=== PATIENT | male | born 1960 | race Caucasian/White ===

== ENCOUNTER 2018-01-16 21:14 | Inpatient (IN) | payer MEDICARE, BC ==
[2018-01-16] MEDS ORDERED: NITROGLYCERIN-D5W PMX 50 MG in DEXTROSE/WATER 1 250ML.BAG IV ONE (21:50)
[2018-01-16] MEDS ORDERED: NITROGLYCERIN SL TABS 0.4 MG TAB SUBLINGUAL STA (21:50)
--- NOTE | 2018-01-16 22:19 | XR ---
EXAMINATION TYPE: XR chest 1V portable DATE OF EXAM: 01/16/2018 COMPARISON: 09/10/2011 HISTORY: Hypertension and emphysema. Short of breath TECHNIQUE: Single frontal view of the chest is obtained. FINDINGS: There is pulmonary vascular congestion and pulmonary edema. There is slight blunting of co stophrenic angles. There are chest leads. IMPRESSION: Congestive heart failure with pleural effusions and pulmonary edema that is essentially new compared to old exam.
[2018-01-16 22:21] LABS: Basophils % (A) 0 %; Eosinophils # (A) 0.1 k/uL (0-0.7); Eosinophils % (A) 1 %; HCT 21.6 % (39.0-53.0); Lymphocytes # (A) 0.2 k/uL (1.0-4.8); Lymphocytes % (A) 2 %; MCH 30.5 pg (25.0-35.0); MCHC 31.8 g/dL (31.0-37.0); Mean Platelet Volume 6.7; Monocytes # (A) 0.1 k/uL (0-1.0); Monocytes % (A) 1 %; Neutrophils # (A) 8.9 k/uL (1.3-7.7); Neutrophils % (A) 95 %; Platelet Count 275 k/uL (150-450); RBC 2.25 m/uL (4.30-5.90); RDW 15.5 % (11.5-15.5); WBC 9.3 k/uL (3.8-10.6)
[2018-01-16 22:23] LABS: HGB 6.9 gm/dL (13.0-17.5)
[2018-01-16 22:28] LABS: Albumin 3.9 g/dL (3.5-5.0); Calcium 9.1 mg/dL (8.4-10.2); Total Protein 6.3 g/dL (6.3-8.2)
[2018-01-16 22:40] LABS: Poikilocytosis (M) Present
[2018-01-16 22:57] LABS: Creatine Kinase MB 2.5 ng/mL (0.0-2.4)
[2018-01-16 22:58] LABS: Troponin I 0.231 ng/mL (0.000-0.034)
--- NOTE | 2018-01-16 23:56 | ED ---
General Adult HPI - General Chief complaint: Shortness of Breath Stated complaint: JOHN PAUL Source: patient, EMS Mode of arrival: EMS Limitations: no limitations - History of Present Illness Initial comments: Dictation was produced using [employer] dictation software. please excuse any grammatical, word or spelling errors. Chief Complaint: 57-year-old male with past medical history of chronic kidney disease, hypertension and emphysema presents here EMS as transfer from [facility]. History of Present Illness: 57 year male with past medical history of chronic kidney disease presents via transfer from [facility] facility. Patient has a past medical history of chronic kidney disease. Patient states she's been short of breath for approximately one week. Patient has poor compliance and poor medical follow-up for his comorbidities. Patient states he has been significantly short of breath progressively patient seen and evaluated [facility] was found to have acute kidney injury and fluid overload. Patient states she still makes urine. Past Medical History: Hypertension, renal disease, emphysema Past Surgical History: Left upper extremity amputation Social History: [denies alcohol, tobacco or illicit drug use] Family History: reviewed and noncontributory The ROS documented in this emergency department record has been reviewed and confirmed by me. Those systems with pertinent positive or negative responses have been documented in the HPI. All other systems are other negative and/or noncontributory. - Related Data Home Medications Medication Instructions Recorded Confirmed Allopurinol [Zyloprim] 200 mg PO DAILY 01/16/18 01/16/18 Aspirin EC [Ecotrin Low Dose] 81 mg PO DAILY 01/16/18 01/16/18 Calcitriol 0.5 mcg PO DIRECTED 01/16/18 01/16/18 Carvedilol [Coreg] 25 mg PO AC-BID 01/16/18 01/16/18 Citalopram Hydrobromide [CeleXA] 20 mg PO DAILY 01/16/18 01/16/18 Ergocalciferol [Vitamin D2] 50,000 unit PO DIRECTED 01/16/18 01/16/18 Furosemide [Lasix] 40 mg PO DAILY 01/16/18 01/16/18 Levothyroxine Sodium [Synthroid] 75 mcg PO DAILY 01/16/18 01/16/18 Magnesium Oxide [Mag-Ox] 400 mg PO DAILY 01/16/18 01/16/18 Spironolactone [Aldactone] 25 mg PO BID 01/16/18 01/16/18 amLODIPine [Norvasc] 10 mg PO DAILY 01/16/18 01/16/18 hydrALAZINE HCL [Apresoline] 50 mg PO TID 01/16/18 01/16/18 Allergies Allergy/AdvReac Type Severity Reaction Status Date / Time Penicillins Allergy Unknown Verified 01/16/18 22:13 Review of Systems ROS Statement: Those systems with pertinent positive or pertinent negative responses have been documented in the HPI. ROS Other: All systems not noted in ROS Statement are negative. 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 Past Psychological History: No Psychological Hx Reported Smoking Status: Current every day smoker Past Alcohol Use History: None Reported Past Drug Use History: None Reported General Exam - General Exam Comments Initial Comments: Vitals: Vital signs upon arrival shows hypertension 161/79. Patient was transferred on BiPAP. He is currently manic percent on BiPAP. PHYSICAL EXAM: General Impression: Alert and oriented x3, acute distress secondary to dyspnea HEENT: Normocephalic atraumatic, extra-ocular movements intact, BiPAP mask in place Cardiovascular: Heart regular rate and rhythm, S1&S2 audible, no murmurs, rubs or gallops Chest: Bilateral lung crackles Abdomen: Bowel sounds present, abdomen soft, non-tender, non-distended, no organomegaly Musculoskeletal: Pulses present and equal in all extremities, no peripheral edema Motor: Power 5/5 bilaterally, no focal deficits noted Neurological: CN II-XII grossly intact, no focal motor or sensory deficits noted Skin: Intact with no visualized rashes Psych: Normal affect and mood Limitations: no limitations Course Vital Signs 01/16/18 01/16/18 01/16/18 21:17 22:33 22:39 Temperature 97.1 F L Pulse Rate 101 H 87 Pulse Rate [ Pulse Oximetery ] Respiratory 24 23 Rate Blood Pressure 173/84 161/79 170/73 Blood Pressure [Right Arm] O2 Sat by Pulse 88 L 99 Oximetry 01/16/18 01/16/18 01/16/18 22:46 23:04 23:53 Temperature Pulse Rate 80 Pulse Rate [ Pulse Oximetery ] Respiratory Rate Blood Pressure 166/73 154/70 159/75 Blood Pressure [Right Arm] O2 Sat by Pulse 100 100 Oximetry 01/17/18 01/17/18 01/17/18 02:00 03:05 03:22 Temperature 97.5 F L 98.4 F Pulse Rate 83 68 Pulse Rate [ 93 Pulse Oximetery ] Respiratory 22 24 24 Rate Blood Pressure 162/79 175/62 Blood Pressure 178/86 [Right Arm] O2 Sat by Pulse 100 98 100 Oximetry Medical Decision Making - Medical Decision Making ED course: Patient is a 57-year-old male presents via transfer from [facility] for dyspnea. Documentation was reviewed from [facility]. Discussed patient case with transferring physician. Patient was found have acute kidney injury. He was given breathing treatment and started on BiPAP there. They did find that he had a critical low hemoglobin. Patient was evaluated immediately as he arrived. Patient was trialed off BiPAP and he became hypoxic. BiPAP was replaced. Point of care ultrasound showed diffuse B lines represented pulmonary edema on bilateral lung wall. Patient mildly hypertensive on arrival. Laboratory evaluation obtained. Hemoglobin 6.9. Rest of CBC is unremarkable. Coag panel is negative. Comprehensive metabolic panel shows a creatinine of 7.8 with a P1 of 69. There is no Acidosis. Glucose is 157 secondary to stress. Troponin is 0.231 likely secondary to acute kidney injury. Brain natriuretic peptide is 49,000. Given degree of dyspnea and elevated blood pressure patient given sublingual nitroglycerin started on nitroglycerin drip. Patient is reevaluated after several hours on drip and BiPAP with improvement of symptoms. Patient be admitted to selective for continuation of BiPAP. Patient will need nephrology consultation for possible dialysis EKG Interpretation: A 12 lead EKG was obtained. It was interpreted by myself and attending physician. There is a P wave before every QRS complex. Rate is 92. Rhythm is, normal sinus, MO interval 184, QRS 142, QTc 516. - Lab Data Result diagrams: 01/21/18 09:00 01/19/18 07:56 Lab Results 01/16/18 01/16/18 01/16/18 Range/Units 22:00 22:00 22:00 WBC 9.3 (3.8-10.6) k/uL RBC 2.25 L (4.30-5.90) m/uL Hgb 6.9 L* (13.0-17.5) gm/dL Hct 21.6 L (39.0-53.0) % MCV 96.0 (80.0-100.0) fL MCH 30.5 (25.0-35.0) pg MCHC 31.8 (31.0-37.0) g/dL RDW 15.5 (11.5-15.5) % Plt Count 275 (150-450) k/uL Neutrophils % 95 % Lymphocytes % 2 % Monocytes % 1 % Eosinophils % 1 % Basophils % 0 % Neutrophils # 8.9 H (1.3-7.7) k/uL Lymphocytes # 0.2 L (1.0-4.8) k/uL Monocytes # 0.1 (0-1.0) k/uL Eosinophils # 0.1 (0-0.7) k/uL Basophils # 0.0 (0-0.2) k/uL Manual Slide Review Performed Poikilocytosis (manual Present PT (9.0-12.0) sec INR (<1.2) APTT (22.0-30.0) sec Sodium 135 L (137-145) mmol/L Potassium 5.0 (3.5-5.1) mmol/L Chloride 105 (98-107) mmol/L Carbon Dioxide 13 L (22-30) mmol/L Anion Gap 17 mmol/L BUN 69 H (9-20) mg/dL Creatinine 7.80 H* (0.66-1.25) mg/dL Est GFR (CKD-EPI)AfAm 8 (>60 ml/min/1.73 sqM) Est GFR (CKD-EPI)NonAf 7 (>60 ml/min/1.73 sqM) Glucose 157 H (74-99) mg/dL Calcium 9.1 (8.4-10.2) mg/dL Magnesium 2.0 (1.6-2.3) mg/dL Total Bilirubin 1.0 (0.2-1.3) mg/dL AST 12 L (17-59) U/L ALT 20 L (21-72) U/L Alkaline Phosphatase 67 (38-126) U/L Total Creatine Kinase 34 L (55-170) U/L CK-MB (CK-2) 2.5 H* (0.0-2.4) ng/mL CK-MB (CK-2) Rel Index 7.4 Troponin I 0.231 H* (0.000-0.034) ng/mL NT-Pro-B Natriuret Pep pg/mL Total Protein 6.3 (6.3-8.2) g/dL Albumin 3.9 (3.5-5.0) g/dL Blood Type Confirm 01/16/18 01/16/18 01/16/18 Range/Units 22:00 22:00 22:00 WBC (3.8-10.6) k/uL RBC (4.30-5.90) m/uL Hgb (13.0-17.5) gm/dL Hct (39.0-53.0) % MCV (80.0-100.0) fL MCH (25.0-35.0) pg MCHC (31.0-37.0) g/dL RDW (11.5-15.5) % Plt Count (150-450) k/uL Neutrophils % % Lymphocytes % % Monocytes % % Eosinophils % % Basophils % % Neutrophils # (1.3-7.7) k/uL Lymphocytes # (1.0-4.8) k/uL Monocytes # (0-1.0) k/uL Eosinophils # (0-0.7) k/uL Basophils # (0-0.2) k/uL Manual Slide Review Poikilocytosis (manual PT 10.0 (9.0-12.0) sec INR 1.0 (<1.2) APTT 22.0 (22.0-30.0) sec Sodium (137-145) mmol/L Potassium (3.5-5.1) mmol/L Chloride (98-107) mmol/L Carbon Dioxide (22-30) mmol/L Anion Gap mmol/L BUN (9-20) mg/dL Creatinine (0.66-1.25) mg/dL Est GFR (CKD-EPI)AfAm (>60 ml/min/1.73 sqM) Est GFR (CKD-EPI)NonAf (>60 ml/min/1.73 sqM) Glucose (74-99) mg/dL Calcium (8.4-10.2) mg/dL Magnesium (1.6-2.3) mg/dL Total Bilirubin (0.2-1.3) mg/dL AST (17-59) U/L ALT (21-72) U/L Alkaline Phosphatase (38-126) U/L Total Creatine Kinase (55-170) U/L CK-MB (CK-2) (0.0-2.4) ng/mL CK-MB (CK-2) Rel Index Troponin I (0.000-0.034) ng/mL NT-Pro-B Natriuret Pep 10296 pg/mL Total Protein (6.3-8.2) g/dL Albumin (3.5-5.0) g/dL Blood Type Confirm AB Positive Disposition Clinical Impression: Congestive heart failure Disposition: ADMITTED IP TO THIS HOSP
[2018-01-17 06:06] LABS: MCHC 30.6 g/dL (31.0-37.0); MCV 98.1 fL (80.0-100.0); Macrocytosis Slight; Mean Platelet Volume 6.6; Platelet Count 243 k/uL (150-450); RBC 1.99 m/uL (4.30-5.90); RDW 15.5 % (11.5-15.5); WBC 4.4 k/uL (3.8-10.6)
[2018-01-17 06:09] LABS: HCT 19.6 % (39.0-53.0)
[2018-01-17] MEDS ORDERED: FUROSEMIDE 10 MG/ML 10 ML VIAL IV STA (08:04)
[2018-01-17] MEDS ORDERED: DESMOPRESSIN ACETATE 4 MCG/ML VIAL (MDV) IV ONE (08:15)
--- NOTE | 2018-01-17 08:16 | P.NPCON ---
History of Present Illness - Reason for Consult acute renal failure, chronic renal failure - History of Present Illness Reason for consultation: Acute kidney injury on chronic kidney disease History of present illness: Patient is a 57-year-old male seen in renal consultation for acute kidney injury on chronic kidney disease. Patient has chronic kidney disease stage V with creatinine in the range of 3.5-4.5 since 2015. Patient was last seen in the office in November 2016 and subsequently missed several appointments. Patient now presents to the hospital with dyspnea which has been going on for the last 2 weeks. Chest x-ray was adjusted of pleural effusions and pulmonary edema. His creatinine is elevated at 7.8. Hemoglobin was 6.9 on admission and is 6.0 this morning. Patient denies any melena or hematochezia. He denies any hematemesis. Vision states his appetite has been quite poor the last few days. States he does make some urine. Denies vomiting or diarrhea. He is noted to be acidotic with a bicarbonate level of 13. He is currently resting in bed on a BiPAP. Blood pressures have been on the higher side. Denies regular use of NSAIDs. Vital signs are stable. General: The patient appeared well nourished and normally developed. HEENT: Head exam is unremarkable. Neck is without jugular venous distension. LUNGS: Breath sounds decreased. HEART: Rate and Rhythm are regular. First and second heart sounds normal. No murmurs, rubs or gallops. ABDOMEN: Abdominal exam reveals normal bowel sounds. Non-tender and non- distended. No evidence of peritonitis. EXTREMITITES: No clubbing, cyanosis, or edema. Left arm amputation noted. 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 Past Anesthesia/Blood Transfusion Reactions: No Reported Reaction Past Psychological History: No Psychological Hx Reported Smoking Status: Current every day smoker Past Alcohol Use History: None Reported Past Drug Use History: None Reported Medications and Allergies Home Medications Medication Instructions Recorded Confirmed Type Allopurinol [Zyloprim] 200 mg PO DAILY 01/16/18 01/16/18 History Aspirin EC [Ecotrin Low Dose] 81 mg PO DAILY 01/16/18 01/16/18 History Calcitriol 0.5 mcg PO DIRECTED 01/16/18 01/16/18 History Carvedilol [Coreg] 25 mg PO AC-BID 01/16/18 01/16/18 History Citalopram Hydrobromide [CeleXA] 20 mg PO DAILY 01/16/18 01/16/18 History Ergocalciferol [Vitamin D2] 50,000 unit PO DIRECTED 01/16/18 01/16/18 History Furosemide [Lasix] 40 mg PO DAILY 01/16/18 01/16/18 History Levothyroxine Sodium [Synthroid] 75 mcg PO DAILY 01/16/18 01/16/18 History Magnesium Oxide [Mag-Ox] 400 mg PO DAILY 01/16/18 01/16/18 History Spironolactone [Aldactone] 25 mg PO BID 01/16/18 01/16/18 History amLODIPine [Norvasc] 10 mg PO DAILY 01/16/18 01/16/18 History hydrALAZINE HCL [Apresoline] 50 mg PO TID 01/16/18 01/16/18 History Allergies Allergy/AdvReac Type Severity Reaction Status Date / Time Penicillins Allergy Unknown Verified 01/16/18 22:13 Physical Exam Vitals: Vital Signs Temp Pulse Pulse Resp BP BP Pulse Ox 01/17/18 06:36 83 20 156/84 99 01/17/18 04:00 93 24 01/17/18 03:22 98.4 F 68 24 175/62 100 01/17/18 03:05 97.5 F L 93 24 178/86 98 01/17/18 02:00 83 22 162/79 100 01/16/18 23:53 80 159/75 100 01/16/18 23:04 154/70 01/16/18 22:46 166/73 100 01/16/18 22:39 170/73 01/16/18 22:33 87 23 161/79 99 01/16/18 21:17 97.1 F L 101 H 24 173/84 88 L Intake and Output 01/16/18 01/17/18 01/17/18 22:59 06:59 14:59 Intake Total 0 Balance 0 Intake: Oral 0 Other: Voiding Method Urinal # Voids 0 Weight 86.183 kg 79.4 kg Results - Lab Results Most recent lab results Calcium 9.1 mg/dL (8.4-10.2) 01/16/18 22:00 Magnesium 2.0 mg/dL (1.6-2.3) 01/16/18 22:00 01/17/18 05:25 01/16/18 22:00 Assessment and Plan Plan: Assessment: 1. Acute kidney injury secondary to ATN secondary to acute anemia. Also very likely that his underlying CKD progressed further. Creatinine 7.8 on admission. 2. Chronic kidney disease stage V secondary to nephrosclerosis. Creatinine in the range of 3.5-4.5 since June 2016. He was advised to get AV fistula created in his right arm but patient did not follow-up. Patient not comfortable with PD due to left arm amputation. 3. Acute anemia with hemoglobin of 6. Scheduled to receive blood transfusion today. No active bleeding noted. Component of chronic kidney disease present. 4. Dyspnea secondary to volume overload and anemia. 5. Hypertension with chronic kidney disease. Plan: Lasix 80 mg IV once now. Start Lasix drip at 10 mL an hour. Add oral sodium bicarbonate 1300 mg twice daily. Blood transfusion today. Add Aranesp. I will give him a dose of IV DDAVP as well. Check phosphorus level. Resume amlodipine. I discussed with the patient the need to start renal replacement therapy due to severely impaired renal function along with electrolyte imbalance and fluid overload as well. Patient is agreeable to start. Consult vascular surgery for permacath placement today. First treatment of hemodialysis today and second treatment tomorrow. global commodity manager to help set up outpatient dialysis at [facility]. Thank you for the consultation. I will continue to follow patient with you during his hospital stay.
[2018-01-17] MEDS ORDERED: DESMOPRESSIN INJ 24 MCG in SODIUM CHLORIDE 0.9% 50 ML IVPB ONE (09:00)
[2018-01-17] MEDS: FUROSEMIDE 250 MG in SODIUM CHLORIDE 0.9% 225 ML IVP SCH (10:24)
[2018-01-17] MEDS: DARBEPOETIN ALFA 40 MCG/0.4 ML SYRINGE SQ SCH (10:59)
[2018-01-17] MEDS: SODIUM BICARBONATE TAB 650 MG TAB PO SCH ×2 (11:20→21:42)
[2018-01-17] MEDS: amLODIPine 10 MG TAB PO SCH (11:20)
[2018-01-17] MEDS: IPRATROPIUM-ALBUTEROL 3 ML NEB INHALATION PRN (11:56)
[2018-01-17] MEDS: ALPRAZolam 0.25 MG TAB PO PRN ×2 (12:29→21:42)
--- NOTE | 2018-01-17 12:29 | P.CNPUL ---
History of Present Illness Consult date: 01/17/18 Requesting physician: Srini Hoang Reason for consult: dyspnea Chief complaint: Shortness of breath History of present illness: This a very pleasant 57-year-old gentleman who follows with Dr. Hastings as his primary care physician. He apparently hasn't seen him in over 2 years. 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 He has a 40 year pack per day smoking history. He presented to the emergency room yesterday at [facility] with complaints of increasing shortness of breath, cough and congestion. He was placed on BiPAP and subsequently transferred here for further treatment. Chest x-ray revealed evidence of fluid volume overload and pulmonary edema. Initial labs revealed a hemoglobin of 6.9, creatinine 7.80, bicarbonate 13, troponin 0.231, proBNP 49, 400. He was admitted to the selective care unit. He is seen there today in consultation. Currently on BiPAP 06/19 at 45% FiO2. He is awake and alert in mild respiratory distress. Labs today revealed RBC 4.4, hemoglobin 6.0. He is receiving his first unit of packed red blood cells. He is currently on a Lasix drip at 10 mg per hour. Nitroglycerin drip at 5 mcg/m. He is receiving sodium bicarb orally. He's been initiated on bronchodilators as needed. Nephrology is on the case. Review of Systems Constitutional: Reports malaise, Reports weakness Eyes: denies blurred vision, denies decreased vision Ears: deny: decreased hearing Ears, nose, mouth and throat: Denies headache, Denies sore throat Cardiovascular: Reports decreased exercise tolerance, Reports dyspnea on exertion, Reports edema, Reports shortness of breath Respiratory: Reports dyspnea, Reports wheezing Gastrointestinal: Denies abdominal pain, Denies diarrhea, Denies nausea, Denies vomiting Genitourinary: Reports as per HPI Musculoskeletal: Denies myalgias Integumentary: Denies pruritus, Denies rash Neurological: Denies numbness, Denies weakness Psychiatric: Denies anxiety, Denies depression Endocrine: Denies fatigue, Denies weight change Hematologic/Lymphatic: Reports as per HPI Allergic/Immunologic: Reports as per HPI Past Medical History Past Medical History: Hypertension, Renal Disease Additional Past Medical History / Comment(s): emphysema, "blood clot in heart" History of Any Multi-Drug Resistant Organisms: None Reported Additional Past Surgical History / Comment(s): 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 Past Anesthesia/Blood Transfusion Reactions: No Reported Reaction Past Psychological History: No Psychological Hx Reported Smoking Status: Current every day smoker Past Alcohol Use History: None Reported Past Drug Use History: None Reported Medications and Allergies Home Medications Medication Instructions Recorded Confirmed Type Allopurinol [Zyloprim] 200 mg PO DAILY 01/16/18 01/16/18 History Aspirin EC [Ecotrin Low Dose] 81 mg PO DAILY 01/16/18 01/16/18 History Calcitriol 0.5 mcg PO DIRECTED 01/16/18 01/16/18 History Carvedilol [Coreg] 25 mg PO AC-BID 01/16/18 01/16/18 History Citalopram Hydrobromide [CeleXA] 20 mg PO DAILY 01/16/18 01/16/18 History Ergocalciferol [Vitamin D2] 50,000 unit PO DIRECTED 01/16/18 01/16/18 History Furosemide [Lasix] 40 mg PO DAILY 01/16/18 01/16/18 History Levothyroxine Sodium [Synthroid] 75 mcg PO DAILY 01/16/18 01/16/18 History Magnesium Oxide [Mag-Ox] 400 mg PO DAILY 01/16/18 01/16/18 History Spironolactone [Aldactone] 25 mg PO BID 01/16/18 01/16/18 History amLODIPine [Norvasc] 10 mg PO DAILY 01/16/18 01/16/18 History hydrALAZINE HCL [Apresoline] 50 mg PO TID 01/16/18 01/16/18 History Allergies Allergy/AdvReac Type Severity Reaction Status Date / Time Penicillins Allergy Unknown Verified 01/16/18 22:13 Physical Exam Vitals: Vital Signs Temp Pulse Pulse Resp BP BP Pulse Ox 01/17/18 11:56 87 24 01/17/18 11:37 97.7 F 89 20 156/83 99 01/17/18 11:35 97.7 F 89 20 156/83 99 01/17/18 11:07 97.5 F L 88 23 164/81 99 01/17/18 10:57 98.0 F 87 22 135/80 01/17/18 08:00 97.1 F L 89 23 168/79 97 01/17/18 06:36 83 20 156/84 99 01/17/18 04:00 93 24 01/17/18 03:22 98.4 F 68 24 175/62 100 01/17/18 03:05 97.5 F L 93 24 178/86 98 01/17/18 02:00 83 22 162/79 100 01/16/18 23:53 80 159/75 100 01/16/18 23:04 154/70 01/16/18 22:46 166/73 100 01/16/18 22:39 170/73 01/16/18 22:33 87 23 161/79 99 01/16/18 21:17 97.1 F L 101 H 24 173/84 88 L Intake and Output 01/16/18 01/17/18 01/17/18 22:59 06:59 14:59 Intake Total 0 0 Balance 0 0 Intake: Oral 0 Blood Product 0 Rc As-1 Unit 0 [id number] Other: Voiding Method Urinal # Voids 0 2 Weight 86.183 kg 79.4 kg GENERAL EXAM: Alert, fairly comfortable in mild respiratory distress. HEAD: Normocephalic. EYES: Normal reaction of pupils, equal size. NOSE: Clear with pink turbinates. THROAT: No erythema or exudates. NECK: No masses, no JVD. CHEST: No chest wall deformity. LUNGS: Equal air entry with crackles in the bilateral posterior bases. Faint end expiratory wheeze. Diminished. CVS: S1 and S2 normal with no audible murmur, regular rhythm. ABDOMEN: No hepatosplenomegaly, normal bowel sounds, no guarding or rigidity. SPINE: No scoliosis or deformity SKIN: No rashes CENTRAL NERVOUS SYSTEM: No focal deficits, tone is normal in all 4 extremities. EXTREMITIES: Left upper extremity amputation. There is no peripheral edema. No clubbing, no cyanosis. Peripheral pulses are intact. Results - Laboratory Findings CBC and BMP: 01/17/18 05:25 01/16/18 22:00 PT/INR, D-dimer PT 10.0 sec (9.0-12.0) 01/16/18 22:00 INR 1.0 (<1.2) 01/16/18 22:00 Abnormal lab findings: Abnormal Labs 01/16/18 01/16/18 01/16/18 22:00 22:00 22:00 RBC 2.25 L Hgb 6.9 L* Hct 21.6 L MCHC Neutrophils # 8.9 H Lymphocytes # 0.2 L Sodium 135 L Carbon Dioxide 13 L BUN 69 H Creatinine 7.80 H* Glucose 157 H AST 12 L ALT 20 L Total Creatine Kinase 34 L CK-MB (CK-2) 2.5 H* Troponin I 0.231 H* Crossmatch 01/17/18 01/17/18 05:25 05:48 RBC 1.99 L Hgb 6.0 L* Hct 19.6 L* MCHC 30.6 L Neutrophils # Lymphocytes # Sodium Carbon Dioxide BUN Creatinine Glucose AST ALT Total Creatine Kinase CK-MB (CK-2) Troponin I Crossmatch See Detail - Diagnostic Findings Chest x-ray: image reviewed Assessment and Plan Assessment: Impression: #1 Acute hypoxic respiratory failure secondary to fluid volume overload/ pulmonary edema secondary to acute renal failure, anemia, suspected chronic obstructive pulmonary disease exacerbation. #2 Acute kidney injury in a patient with a known history of chronic kidney disease. #3 Acute anemia suspect secondary to chronic kidney disease. No evidence of active bleeding. #4 Hypertension, currently uncontrolled. #5 Chronic and ongoing tobacco dependence. #6 Hypothyroidism. #7 History of left upper extremity amputation. #8 History of cardiac emboli. Plan: The patient was seen and evaluated by Dr. Hoang. We will go ahead and treat him for suspected COPD exacerbation. Initiate bronchodilators 4 times a day and when necessary, Pulmicort and Perforomist inhalations twice a day. He is educated regarding the importance of complete smoking cessation. NicoDerm patch will be applied. He has been seen and evaluated by nephrology. The patient is agreeable to renal replacement therapy. Vascular services were consulted for vascular access. In the interim we'll continue with Lasix drip, nitroglycerin drip, oral bicarb, Aranesp. Complete blood transfusions. Follow- up hemoglobins. Repeat a chest x-ray in the a.m. Lies BiPAP intermittently as needed alternating with nasal cannula. We will continue to follow and make further recommendations based on his clinical status. I, the cosigning physician, performed a history & physical examination of the patient. Lungs sounds with crackles in the bilateral posterior bases. Diminished.. Maintaining good O2 saturations in the 90s on 45% FiO2 per BiPAP. I discussed the assessment and plan of care with my nurse practitioner, Elizabeth Nevarez. I attest to the above consultation as dictated by her.
[2018-01-17] MEDS ORDERED: NICOTINE 14MG/24HR PATCH TRANSDERM SCH (12:45)
[2018-01-17] MEDS ORDERED: LIDOCAINE 1% (PF) 10MG/ML VIAL SQ ONE (13:00)
[2018-01-17] MEDS ORDERED: fentaNYL (PF) 50 MCG/ML 2 ML AMP IVP ONE (13:05)
--- NOTE | 2018-01-17 13:49 | IR ---
EXAMINATION TYPE: IR cvc insert central tunneled DATE OF EXAM: 01/17/2018 COMPARISON: NONE HISTORY: Peripheral vascular occlusive disease. 0.6 minutes of Fluoroscopy was provided to the referring clinician. See dictated report from vascula r surgery.
--- NOTE | 2018-01-17 14:19 | XR ---
EXAMINATION TYPE: XR chest 1V portable DATE OF EXAM: 01/17/2018 COMPARISON: 01/16/2018 HISTORY: Catheter placement TECHNIQUE: Single frontal view of the chest is obtained. FINDINGS: Dialysis catheter seen with the tip overlying the SVC and no sizable pneumothorax. Atherosclerotic change aorta, cardiomegaly, bilateral pleural effusion, bilateral lower lobe consolid ation and perihilar interstitial changes are noted. IMPRESSION: 1. Central line dialysis catheter appears in good position with no sizable pneumothorax 2. Correlate for CHF. Underlying pneumonia not excluded
--- NOTE | 2018-01-17 15:18 | CONS ---
CONSULTATION This is a 57-year-old gentleman who is known to me from the past. He came with acute kidney injury on chronic kidney disease. Patient has history of chronic kidney disease stage V with creatinine in the range of 3.5 to 4.5. Patient has a chest x-ray with some pleural effusion and pulmonary edema. His creatinine is elevated now today to 7.8, hemoglobin is 6.9. He denies any lower GI bleed. MEDICAL HISTORY: Hypertension and renal disease. PHYSICAL EXAMINATION: Neck is supple. No bruit appreciated. Chest has few crackles at the lung bases. Abdomen is soft, nontender. Femoral pulses are present. PLAN: Placement of the dialysis catheter, risks and complications discussed. MMODL / IJN: [id number] /
--- NOTE | 2018-01-17 15:24 | PCN ---
PROCEDURE NOTE PREOPERATIVE DIAGNOSIS: Acute renal failure with chronic anemia. PROCEDURE: 1. Ultrasound-guided 23 cm dialysis catheter placed. 2. Sedation time is 23 minutes. PROCEDURE: Patient is brought to the cardiac catheterization technologist. Right chest and neck was prepped and draped in a sterile manner with 1% lidocaine for the neck area. Ultrasound-guided micropuncture into the right jugular vein. Micropuncture guidewire was passed and then tunnel created. Through the tunnel we brought 28 cm dialysis catheter and a regular guide was passed which was parked in the inferior vena cava under fluoroscopy control. Dilator sheath was advanced over the guidewire through the sheath. We introduced the dialysis catheter. Tip of the catheter in superior vena cava and atrium, flushed with heparin saline and hep-locked and incision were closed with Vicryl and nylon. Dressing applied. Patient tolerated the procedure well. DENNIS / SRINIVASN: [id number] /
[2018-01-17] MEDS: methylPREDNISolone SOD SUCCI 40 MG/ML 1 ML VIAL IV SCH ×2 (15:53→23:50)
[2018-01-17 16:24] LABS: Hepatitis A Antibody IgM Non-Reactive (Non-Reactive); Hepatitis B Core IgM Non-Reactive (Non-Reactive)
[2018-01-17] MEDS: IPRATROPIUM-ALBUTEROL 3 ML NEB INHALATION SCH ×2 (16:25→20:27)
[2018-01-17] MEDS ORDERED: NICOTINE POLACRILEX 2 MG GUM BUCCAL PRN (16:53)
[2018-01-17] MEDS: NICOTINE 21MG/24HR PATCH TRANSDERM SCH (17:02)
[2018-01-17] MEDS: ENOXAPARIN 40 MG/0.4 ML SYRINGE SQ SCH (17:26)
--- NOTE | 2018-01-17 17:29 | HP ---
HISTORY AND PHYSICAL DATE OF ADMISSION: 01/16/2018 DATE OF SERVICE: 01/17/2018. PRESENTING COMPLAINT: Short of breath. HISTORY OF PRESENTING COMPLAINT: This is a pleasant 57-year-old patient of Dr. Srini Hastings whose chronic stable medical conditions include hypertension, chronic kidney disease, emphysema. The patient is a smoker. The patient presented with progressively getting short of breath, some orthopnea, minimal edema. Patient also was found to have a hemoglobin down to 6.9; repeat was 6. I ordered a unit of blood. Patient's creatinine that normally runs around 4 was found in the ER to be 7.8. Earlier Dr. Javi Bautista from [facility] put in a dialysis catheter in the right chest wall and the patient underwent his first hemodialysis. Patient has continued to smoke; also has been having wheezing. No fever or chills. Has been tired and rundown. REVIEW OF SYSTEMS: CONSTITUTIONAL: Tired. HEENT: None. RESPIRATORY: As above. CARDIOVASCULAR: As above. GASTROINTESTINAL: None. GENITOURINARY: None. MUSCULOSKELETAL: None. DERMATOLOGICAL: None. HEMATOLOGICAL: None. LYMPHATICS: None. PSYCHIATRY: None. NEUROLOGICAL: None. PAST MEDICAL HISTORY: 1. Essential hypertension. 2. Chronic kidney disease. 3. Emphysema. PAST SURGICAL HISTORY: Below-elbow amputation of the left arm. SOCIAL HISTORY: Smokes a pack and a half a day. Lives with his brother. No alcohol. FAMILY HISTORY: Reviewed; non-contributory to presentation. HOME MEDICATIONS: 1. Hydralazine 50 mg p.o. t.i.d. 2. Norvasc 10 mg a day. 3. Aldactone 25 mg b.i.d. 4. Magnesium oxide 400 mg a day. 5. Synthroid 75 mcg a day. 6. Lasix 40 mg a day. 7. Vitamin D2 50,000 units as directed. 8. Celexa 20 mg a day. 9. Coreg 25 p.o. b.i.d. 10.Calcitriol 0.5 mcg p.o. as directed. 11.Aspirin 81 mg p.o. daily. 12.Allopurinol 200 mg p.o. daily. ALLERGIES: PENICILLIN. PHYSICAL EXAMINATION: VITAL SIGNS ON PRESENTATION: Temperature 97.1, pulse 101, respiration 24, blood pressure 173/84, pulse ox 88% on BiPAP. GENERAL APPEARANCE: Average build. Lying in bed, tired-appearing. EYES: Pupils equal. Conjunctivae normal. HEENT: External appearance of nose and ears normal. Oral cavity normal. NECK: JVD not raised. Mass not palpable. RESPIRATORY: Effort increased. LUNGS: Diminished breath sounds. Prolonged expiration and wheezing. CARDIOVASCULAR: First and second sounds normal. No edema. ABDOMEN: Soft, nontender. Liver and spleen not palpable. LYMPHATIC: No lymph node palpable in neck or axillae. PSYCHIATRY: Alert and oriented x3. Mood and affect normal. CHEST WALL: Dialysis catheter in the right chest wall. INVESTIGATIONS: Chest x-ray shows pulmonary edema. White count 9.3, hemoglobin 6.9, repeat 6. Platelets 275. Potassium 5.0, BUN 69, creatinine 7.8. Troponin I 0.231. ProBNP 49,400. ASSESSMENT: 1. Acute renal failure; could be acute tubular necrosis. 2. Chronic kidney disease. Patient's creatinine at baseline was around 3 to 4. 3. Troponin leak; not acute coronary syndrome. This is a setting of renal failure. 4. Severe metabolic acidosis from renal failure. 5. Normocytic anemia, likely from chronic kidney disease. 6. Acute pulmonary edema, likely from fluid retention from renal failure. Need to rule out congestive heart failure. 7. Acute chronic obstructive pulmonary disease exacerbation in a current smoker. 8. Chronic nicotine dependence. Patient is a cigarette smoker. PLAN: The patient did get an IV access and did get dialyzed today. He is on IV Solu-Medrol and nebulized bronchodilators. Patient was started on a nicotine patch. Will get a 2- D echocardiogram. Other home medications to continue. Consultations made to Nephrology and Pulmonary. Patient was also put on bicarbonate tablets. MMODL / IJN: [id number] /
[2018-01-17] MEDS: MAGNESIUM OXIDE 400 MG TAB PO SCH (17:55)
[2018-01-17] MEDS: CARVEDILOL 12.5 MG TAB PO SCH (17:55)
[2018-01-17] MEDS: LEVOTHYROXINE 75 MCG TAB PO SCH (17:55)
[2018-01-17] MEDS: CITALOPRAM HYDROBROMIDE 20 MG TAB PO SCH (17:55)
[2018-01-17] MEDS: ALLOPURINOL 100 MG TAB PO SCH (17:55)
[2018-01-17] MEDS: ASPIRIN 81 MG PO SCH (17:55)
[2018-01-17] MEDS: BUDESONIDE 1 MG/2 ML NEBU INHALATION SCH (20:27)
[2018-01-17] MEDS: FORMOTEROL FUMARATE 20 MCG/2 ML NEBU INHALATION SCH (20:27)
[2018-01-18 05:52] LABS: Anisocytosis Slight; Basophils % (A) 0 %; Eosinophils % (A) 1 %; HCT 24.9 % (39.0-53.0); Lymphocytes # (A) 0.2 k/uL (1.0-4.8); Lymphocytes % (A) 5 %; MCH 29.4 pg (25.0-35.0); MCV 91.7 fL (80.0-100.0); Mean Platelet Volume 7.9; Monocytes # (A) 0.1 k/uL (0-1.0); Monocytes % (A) 3 %; Neutrophils # (A) 3.5 k/uL (1.3-7.7); Neutrophils % (A) 91 %; Platelet Count 227 k/uL (150-450); RBC 2.72 m/uL (4.30-5.90); RDW 16.9 % (11.5-15.5); WBC 3.8 k/uL (3.8-10.6)
[2018-01-18 06:06] LABS: Albumin 3.7 g/dL (3.5-5.0); Calcium 9.6 mg/dL (8.4-10.2); Potassium 4.6 mmol/L (3.5-5.1); Total Bilirubin 1.4 mg/dL (0.2-1.3)
[2018-01-18 06:26] LABS: Phosphorus 8.3 mg/dL (2.5-4.5)
[2018-01-18] MEDS: FORMOTEROL FUMARATE 20 MCG/2 ML NEBU INHALATION SCH ×2 (08:24→19:15)
[2018-01-18] MEDS: IPRATROPIUM-ALBUTEROL 3 ML NEB INHALATION SCH ×4 (08:24→19:15)
[2018-01-18] MEDS: BUDESONIDE 1 MG/2 ML NEBU INHALATION SCH ×2 (08:25→19:15)
[2018-01-18] MEDS: ENOXAPARIN 40 MG/0.4 ML SYRINGE SQ SCH (08:31)
[2018-01-18] MEDS: NICOTINE 21MG/24HR PATCH TRANSDERM SCH (08:32)
[2018-01-18] MEDS: SODIUM BICARBONATE TAB 650 MG TAB PO SCH ×2 (08:32→23:45)
[2018-01-18] MEDS: LEVOTHYROXINE 75 MCG TAB PO SCH (08:33)
[2018-01-18] MEDS: methylPREDNISolone SOD SUCCI 40 MG/ML 1 ML VIAL IV SCH ×3 (08:33→23:45)
[2018-01-18] MEDS: CARVEDILOL 12.5 MG TAB PO SCH ×2 (08:33→17:25)
[2018-01-18] MEDS: MAGNESIUM OXIDE 400 MG TAB PO SCH (08:34)
[2018-01-18] MEDS: CITALOPRAM HYDROBROMIDE 20 MG TAB PO SCH (08:34)
[2018-01-18] MEDS: ALLOPURINOL 100 MG TAB PO SCH (08:34)
[2018-01-18] MEDS: amLODIPine 10 MG TAB PO SCH (08:34)
[2018-01-18] MEDS: ASPIRIN 81 MG PO SCH (08:34)
--- NOTE | 2018-01-18 10:21 | P.PN ---
Subjective Progress Note Date: 01/18/18 Principal diagnosis: This is a 57-year-old male with chronic kidney disease stage V came in because of shortness of breath and has ESRD now. He has been trying to avoid dialysis for some time in the past. Currently he is on dialysis as his dialysis #2 today. He has a permacath on the right side. He is feeling much better appetite is back he denies any shortness of breath dizziness cramps. He has had accidental trauma to his left arm and has a stump there from previous amputation. Therefore he has no access possibilities in that arm leaving him with only 1 on on the right side. I have recommended strongly that he consider peritoneal Lamisil which he was somewhat resistant to. He is willing to listen and get educated about it before making any final decisions. Objective - Vital Signs Vital signs: Vital Signs Temp 97.1 F L 01/18/18 08:00 Pulse 89 01/18/18 08:47 Resp 20 01/18/18 08:00 BP 153/91 01/18/18 08:00 Pulse Ox 91 L 01/18/18 08:00 Intake & Output 01/17/18 01/18/18 01/18/18 18:59 06:59 18:59 Intake Total 860 240 Output Total 1200 Balance 860 -1200 240 Weight 79.4 kg 81 kg Intake: Oral 240 240 Blood Product 620 As-1 Unit 310 [id number] As-1 Unit 310 [id number] Output: Urine 1200 Other: Voiding Method Urinal Urinal # Voids 0 0 On examination awake alert oriented comfortable HEENT exam no JVP neck is supple no facial asymmetry Lungs clear to auscultation good air entry bilaterally Heart sounds are unremarkable for any murmur rub gallop. Abdomen soft nontender no organomegaly ascites masses Extremity exam was no edema. As mentioned about he has a small stump on his left arm from a previous accidental amputation as a child. Neurologically awake alert oriented., No asterixis. - Labs CBC & Chem 7: 01/18/18 05:39 01/18/18 05:39 Labs: Abnormal Lab Results - Last 24 Hours (Table) 01/17/18 01/18/18 01/18/18 Range/Units 05:48 05:39 05:39 RBC 2.72 L (4.30-5.90) m/uL Hgb 8.0 L D (13.0-17.5) gm/dL Hct 24.9 L (39.0-53.0) % RDW 16.9 H (11.5-15.5) % Lymphocytes # 0.2 L (1.0-4.8) k/uL BUN 58 H (9-20) mg/dL Creatinine 5.97 H* (0.66-1.25) mg/dL Glucose 141 H (74-99) mg/dL Phosphorus 8.3 H* (2.5-4.5) mg/dL Total Bilirubin 1.4 H (0.2-1.3) mg/dL Total Protein 6.0 L (6.3-8.2) g/dL Crossmatch See Detail Assessment and Plan Assessment: Impression 1. ESRD on dialysis now starting yesterday and on dialysis today second time with a permacath in the right side. Etiology is is likely nephrosclerosis. 2. Volume overloaded resolved with one dialysis dialysis. 3. Anemia of chronic disease, ESRD hemoglobin is 8 from 6 yesterday. 4. Mild degree of gap acidosis with a gap of 17 bicarb is 25, this is a result of correction of acidosis with dialysis yesterday and bicarb improved from 13- 25. 5. Hypertension slightly about target. Recommendation. 1. Consider peritoneal dialysis as an alternative. 2. Proceed with planning for access surgery by Dr. Bautista
--- NOTE | 2018-01-18 10:22 | P.PN ---
Subjective Progress Note Date: 01/18/18 Principal diagnosis: Acute hypoxic respiratory failure secondary to acute fluid volume overload secondary to acute renal failure. This a very pleasant 57-year-old gentleman who follows with Dr. Hastings as his primary care physician. He apparently hasn't seen him in over 2 years. 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 He has a 40 year pack per day smoking history. He presented to the emergency room yesterday at [facility] with complaints of increasing shortness of breath, cough and congestion. He was placed on BiPAP and subsequently transferred here for further treatment. Chest x-ray revealed evidence of fluid volume overload and pulmonary edema. Initial labs revealed a hemoglobin of 6.9, creatinine 7.80, bicarbonate 13, troponin 0.231, proBNP 49, 400. He was admitted to the selective care unit. He is seen there today in consultation. Currently on BiPAP 06/19 at 45% FiO2. He is awake and alert in mild respiratory distress. Labs today revealed RBC 4.4, hemoglobin 6.0. He is receiving his first unit of packed red blood cells. He is currently on a Lasix drip at 10 mg per hour. Nitroglycerin drip at 5 mcg/m. He is receiving sodium bicarb orally. He's been initiated on bronchodilators as needed. Nephrology is on the case. Patient is seen today 01/18/2018 in follow-up on the selective care unit. He is awake and alert in no acute distress. He is breathing quite a bit easier today as compared to yesterday. He did utilize the BiPAP throughout the evening and is currently on 4 L/m per nasal cannula to maintain O2 saturations in the 90s. He did undergo vascular access catheter and is currently receiving hemodialysis. He remains on the Lasix drip at 10 mg per hour. He is continued on his COPD exacerbation medications as well. Objective - Vital Signs Vital signs: Vital Signs Temp 97.1 F L 01/18/18 08:00 Pulse 89 01/18/18 08:47 Resp 20 01/18/18 08:00 BP 153/91 01/18/18 08:00 Pulse Ox 91 L 01/18/18 08:00 Intake & Output 01/17/18 01/18/18 01/18/18 18:59 06:59 18:59 Intake Total 860 240 Output Total 1200 Balance 860 -1200 240 Weight 79.4 kg 81 kg Intake: Oral 240 240 Blood Product 620 Rc As-1 Unit 310 [id number] Rc As-1 Unit 310 [id number] Output: Urine 1200 Other: Voiding Method Urinal Urinal # Voids 0 0 - Exam GENERAL EXAM: Alert, fairly comfortable in mild respiratory distress. HEAD: Normocephalic. EYES: Normal reaction of pupils, equal size. NOSE: Clear with pink turbinates. THROAT: No erythema or exudates. NECK: No masses, no JVD. CHEST: No chest wall deformity. LUNGS: Equal air entry with crackles in the bilateral posterior bases. Faint end expiratory wheeze. Diminished. CVS: S1 and S2 normal with no audible murmur, regular rhythm. ABDOMEN: No hepatosplenomegaly, normal bowel sounds, no guarding or rigidity. SPINE: No scoliosis or deformity SKIN: No rashes CENTRAL NERVOUS SYSTEM: No focal deficits, tone is normal in all 4 extremities. EXTREMITIES: Left upper extremity amputation. There is no peripheral edema. No clubbing, no cyanosis. Peripheral pulses are intact. - Labs CBC & Chem 7: 01/18/18 05:39 01/18/18 05:39 Labs: Abnormal Lab Results - Last 24 Hours (Table) 01/17/18 01/18/18 01/18/18 Range/Units 05:48 05:39 05:39 RBC 2.72 L (4.30-5.90) m/uL Hgb 8.0 L D (13.0-17.5) gm/dL Hct 24.9 L (39.0-53.0) % RDW 16.9 H (11.5-15.5) % Lymphocytes # 0.2 L (1.0-4.8) k/uL BUN 58 H (9-20) mg/dL Creatinine 5.97 H* (0.66-1.25) mg/dL Glucose 141 H (74-99) mg/dL Phosphorus 8.3 H* (2.5-4.5) mg/dL Total Bilirubin 1.4 H (0.2-1.3) mg/dL Total Protein 6.0 L (6.3-8.2) g/dL Crossmatch See Detail Assessment and Plan Assessment: Impression: #1 Acute hypoxic respiratory failure secondary to fluid volume overload/ pulmonary edema secondary to acute renal failure, anemia, suspected chronic obstructive pulmonary disease exacerbation. #2 Acute kidney injury in a patient with a known history of chronic kidney disease. #3 Acute anemia suspect secondary to chronic kidney disease. No evidence of active bleeding. #4 Hypertension, better controlled. #5 Chronic and ongoing tobacco dependence. #6 Hypothyroidism. #7 History of left upper extremity amputation. #8 History of cardiac emboli. Plan: The patient was seen and evaluated by Dr. Hoang. We will continue to treat him for suspected COPD exacerbation. Continue bronchodilators 4 times a day and when necessary, Pulmicort and Perforomist inhalations twice a day. He is educated regarding the importance of complete smoking cessation. NicoDerm patch will be applied. He has been seen and evaluated by nephrology. Hemodialysis has been started today. Continue with Lasix drip. Repeat a chest x -ray in the a.m. continue BiPAP intermittently as needed alternating with nasal cannula. We will continue to follow and make further recommendations based on his clinical status. I, the cosigning physician, performed a history & physical examination of the patient. Lungs sounds with crackles in the bilateral posterior bases. Diminished.. Maintaining good O2 saturations in the 90s on 4 L/m per nasal cannula.. I discussed the assessment and plan of care with my nurse practitioner, Elizabeth Nevarez. I attest to the above consultation as dictated by her.
--- NOTE | 2018-01-18 14:10 | ECHOF ---
Referral Reason:assess l v fn MEASUREMENTS -------- HEIGHT: 180.3 cm WEIGHT: 79.4 kg BP: 163/87 RVIDd: 3.4 cm (< 3.3) IVSd: 1.2 cm (0.6 - 1.1) LVIDd: 6.1 cm (3.9 - 5.3) LVPWd: 1.2 cm (0.6 - 1.1) IVSs: 1.4 cm LVIDs: 4.8 cm LVPWs: 1.6 cm LAESV Index (A-L): 47.69 ml/m Ao Diam: 3.6 cm (2.0 - 3.7) AV Cusp: 2.1 cm (1.5 - 2.6) LA Diam: 3.4 cm (2.7 - 3.8) MV E Manny: 1.33 m/s MV DecT: 149 ms MV A Manny: 0.96 m/s MV E/A Ratio: 1.38 RAP: 15.00 mmHg RVSP: 22.98 mmHg MV EF SLOPE: 80.48 mm/s (70 - 150) MV EXCURSION: 1.59 cm (> 18.000) FINDINGS -------- Sinus rhythm. This was a technically adequate study. The left ventricle is mildly dilated. There is mild concentric left ventricular hypertrophy. Ther e is severe global hypokinesis of LV . Overall left ventricular systolic function is moderate-sever quinten impaired with, an EF between 30 - 35 %. The right ventricle is mildly enlarged. LA is severely dilated >40 ml/m2 RA appears enlarged. There is mild aortic valve sclerosis. There is no evidence of aortic regurgitation. There is no e vidence of aortic stenosis. The mitral valve leaflets are mildly thickened. Mild mitral annular calcification present. Mild m itral regurgitation is present. Trace tricuspid regurgitation present. Right ventricular systolic pressure is normal at < 35 mmHg. There is no evidence of pulmonary hypertension. The pulmonic valve was not well visualized. The aortic root size is normal. The inferior vena cava is dilated with no significant inspiratory collapse which is consistent estima sophia right atrial pressure of >20 mmHg. There is no pericardial effusion. CONCLUSIONS -------- 1. Sinus rhythm. 2. This was a technically adequate study. 3. The left ventricle is mildly dilated. 4. There is mild concentric left ventricular hypertrophy. 5. There is severe global hypokinesis of LV . 6. Overall left ventricular systolic function is moderate-severely impaired with, an EF between 30 - 35 %. 7. The right ventricle is mildly enlarged. 8. LA is severely dilated >40 ml/m2 9. RA appears enlarged. 10. There is mild aortic valve sclerosis. 11. The mitral valve leaflets are mildly thickened. 12. Mild mitral annular calcification present. 13. Mild mitral regurgitation is present. 14. Trace tricuspid regurgitation present. 15. Right ventricular systolic pressure is normal at < 35 mmHg. 16. There is no evidence of pulmonary hypertension. 17. The pulmonic valve was not well visualized. 18. The aortic root size is normal. 19. The inferior vena cava is dilated with no significant inspiratory collapse which is consistent es timated right atrial pressure of >20 mmHg. 20. There is no pericardial effusion. CHEMICAL LAB TECHNICIAN: Elijah Whittington RDCS
[2018-01-18 16:53] LABS: Iron Saturation 11.36 (15.00-50.00)
[2018-01-18] MEDS: FUROSEMIDE 250 MG in SODIUM CHLORIDE 0.9% 225 ML IVP SCH (16:59)
[2018-01-18] MEDS: diphenhydrAMINE 25 MG CAP PO PRN (21:55)
--- NOTE | 2018-01-18 23:25 | PN ---
PROGRESS NOTE DATE OF SERVICE: 01/18/2018 PRESENT COMPLAINT: Short of breath. INTERVAL HISTORY: Patient presented with acute pulmonary edema from worsening renal failure and COPD exacerbation. The patient was dialyzed again today; feeling better, did tolerate some diet. Lying in bed. REVIEW OF SYSTEMS: Done for constitutional, cardiovascular, GI, pulmonary. relevant findings as above. CURRENT MEDICATIONS: Include: 1. DuoNeb. 2. IV Solu-Medrol. 3. Lasix drip. EXAMINATION: Temperature 97, pulse 78, respirations 16, blood pressure 135/62, pulse 93% on 4L. GENERAL APPEARANCE: Lying in bed, awake. EYES: Pupils equal. Conjunctivae normal. HEENT: External nose and ears normal. Oral cavity normal. NECK: JVD unable to assess. Mass not palpable. RESPIRATORY: Effort increased. LUNGS: Decreased breath sounds. Prolonged expiration and wheezing. CARDIOVASCULAR: First and second sounds normal. No edema. ABDOMEN: Soft, nontender. Liver and spleen not palpable. PSYCHIATRY: Alert and oriented x3. Mood and affect were normal. INVESTIGATIONS: Hemoglobin 8. Potassium 4.6, BUN 58, creatinine 5.97. Phosphorus 8.3. ASSESSMENT: 1. Acute renal failure could be acute tubular necrosis. 2. Chronic kidney disease. Patient's creatinine at baseline was 3-4. 3. Troponin leak, doubt acute coronary syndrome. This in the setting of renal failure. 4. Severe metabolic acidosis from renal failure. 5. Normocytic anemia likely from chronic kidney disease. 6. Acute pulmonary edema, likely from renal failure. 7. Acute chronic obstructive pulmonary disease exacerbation in a current smoker. 8. Chronic nicotine dependence. Patient is a cigarette smoker. 9. End-stage kidney disease on hemodialysis now. 10.Secondary hyperparathyroidism/possibly mineral bone disease of chronic kidney disease. 11.Dilated cardiomyopathy, ejection fraction 30%-35% with acute exacerbation. May need to rule out underlying coronary artery disease. PLAN: Continue current medication and treatment plan, including dialysis. Continue with nebulized bronchodilators, steroids. The patient's EF has come back to be 30%-35%. Will get a cardiology opinion for the same. MMODL / IJN: [id number] /
[2018-01-18] MEDS: ALPRAZolam 0.25 MG TAB PO PRN (23:45)
[2018-01-19] MEDS: LEVOTHYROXINE 75 MCG TAB PO SCH (06:46)
[2018-01-19] MEDS: diphenhydrAMINE 25 MG CAP PO PRN ×2 (06:46→22:41)
[2018-01-19] MEDS: CARVEDILOL 12.5 MG TAB PO SCH ×2 (06:46→18:53)
[2018-01-19] MEDS: IPRATROPIUM-ALBUTEROL 3 ML NEB INHALATION SCH ×4 (07:34→19:31)
[2018-01-19] MEDS: BUDESONIDE 1 MG/2 ML NEBU INHALATION SCH ×2 (07:34→19:30)
[2018-01-19] MEDS: FORMOTEROL FUMARATE 20 MCG/2 ML NEBU INHALATION SCH ×2 (07:34→19:30)
[2018-01-19 08:21] LABS: Anisocytosis Slight; HCT 23.7 % (39.0-53.0); HGB 7.8 gm/dL (13.0-17.5); MCH 30.2 pg (25.0-35.0); MCHC 32.8 g/dL (31.0-37.0); MCV 92.2 fL (80.0-100.0); Mean Platelet Volume 7.5; Platelet Count 248 k/uL (150-450); RBC 2.57 m/uL (4.30-5.90); RDW 16.3 % (11.5-15.5); WBC 4.1 k/uL (3.8-10.6)
[2018-01-19 08:26] LABS: INR 1.1 (<1.2)
[2018-01-19 08:34] LABS: Potassium 4.1 mmol/L (3.5-5.1)
--- NOTE | 2018-01-19 08:35 | XR ---
EXAMINATION TYPE: XR chest 1V portable DATE OF EXAM: 01/19/2018 HISTORY: CHF. REFERENCE: Previous study dated 01/17/2018. FINDINGS: There is a large-bore, double-lumen catheter in place via a right internal jugular approach . Its tip is at the cavoatrial junction. The lungs are overinflated. The heart is enlarged. There is mild vascular congestion without judith ed jorge. There is minimal blunting of the CP angles. I could not exclude small effusions. IMPRESSION: 1. COPD. 2. CARDIOMEGALY. 3. MILD VASCULAR CONGESTION. 4. I COULD NOT EXCLUDE SMALL, BILATERAL EFFUSIONS.
[2018-01-19] MEDS: ENOXAPARIN 40 MG/0.4 ML SYRINGE SQ SCH (09:43)
[2018-01-19] MEDS: ALLOPURINOL 100 MG TAB PO SCH (09:44)
[2018-01-19] MEDS: ASPIRIN 81 MG PO SCH (09:44)
[2018-01-19] MEDS: SODIUM BICARBONATE TAB 650 MG TAB PO SCH ×2 (09:44→20:01)
[2018-01-19] MEDS: CITALOPRAM HYDROBROMIDE 20 MG TAB PO SCH (09:45)
[2018-01-19] MEDS: methylPREDNISolone SOD SUCCI 40 MG/ML 1 ML VIAL IV SCH ×2 (09:45→15:39)
[2018-01-19] MEDS: MAGNESIUM OXIDE 400 MG TAB PO SCH (09:45)
[2018-01-19] MEDS: amLODIPine 10 MG TAB PO SCH (09:45)
[2018-01-19] MEDS: FUROSEMIDE 250 MG in SODIUM CHLORIDE 0.9% 225 ML IVP SCH (09:46)
--- NOTE | 2018-01-19 10:00 | P.CRDCN ---
History of Present Illness Consult date: 01/19/18 Chief complaint: severe cardiomyopathy History of present illness: This is a pleasant 57-year-old gentleman with a past medical history significant for hypertension, stage IV chronic kidney disease, as well as significant history of smoking, presented to the emergency room complaining of progressive dyspnea. The patient was in his usual state of health but about 3-4 days before he presented to the hospital when he started experiencing progressive exertional dyspnea associated with orthopnea and also PND. He did not report any chest pain or chest discomfort, dizziness or lightheadedness, or syncope. When the patient presented to the ER he was found to be in volume overload. He also was found to be severely anemic with a hemoglobin around 6 and receives blood. Also the creatinine was around 5 and he was in acute on chronic renal failure. The patient underwent a dialysis catheter and he underwent dialysis twice. Apparently he is known to have stage IV chronic kidney disease but he was noncompliant with his appointments. An echocardiogram was performed and revealed severe cardiomyopathy with an EF around 35%. The patient is not aware of any prior cardiac history and never seen a toe former stitchdowns in the past. The EKG showed sinus rhythm with diffuse nonspecific ST and T wave abnormalities quite concerning for ischemia. The chest x-ray showed findings consistent with CHF. The first set of troponin came in to be slightly abnormal and we don't have any more sets of troponin and the patient at this point. After the patient underwent dialysis he felt better in term of shortness of breath. He also was started on Lasix drip and he is making urine. 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 Past Anesthesia/Blood Transfusion Reactions: No Reported Reaction Past Psychological History: No Psychological Hx Reported Smoking Status: Current every day smoker Past Alcohol Use History: None Reported Past Drug Use History: None Reported Medications and Allergies Home Medications Medication Instructions Recorded Confirmed Type Allopurinol [Zyloprim] 200 mg PO DAILY 01/16/18 01/16/18 History Aspirin EC [Ecotrin Low Dose] 81 mg PO DAILY 01/16/18 01/16/18 History Calcitriol 0.5 mcg PO DIRECTED 01/16/18 01/16/18 History Carvedilol [Coreg] 25 mg PO AC-BID 01/16/18 01/16/18 History Citalopram Hydrobromide [CeleXA] 20 mg PO DAILY 01/16/18 01/16/18 History Ergocalciferol [Vitamin D2] 50,000 unit PO DIRECTED 01/16/18 01/16/18 History Furosemide [Lasix] 40 mg PO DAILY 01/16/18 01/16/18 History Levothyroxine Sodium [Synthroid] 75 mcg PO DAILY 01/16/18 01/16/18 History Magnesium Oxide [Mag-Ox] 400 mg PO DAILY 01/16/18 01/16/18 History Spironolactone [Aldactone] 25 mg PO BID 01/16/18 01/16/18 History amLODIPine [Norvasc] 10 mg PO DAILY 01/16/18 01/16/18 History hydrALAZINE HCL [Apresoline] 50 mg PO TID 01/16/18 01/16/18 History Allergies Allergy/AdvReac Type Severity Reaction Status Date / Time Penicillins Allergy Unknown Verified 01/16/18 22:13 Physical Exam Vitals: Vital Signs Temp Pulse Pulse Resp BP Pulse Ox 01/19/18 07:55 80 01/19/18 07:46 76 01/19/18 07:45 76 01/19/18 07:36 76 92 L 01/19/18 04:00 96.3 F L 77 18 172/84 92 L 01/19/18 00:00 97.0 F L 77 18 165/79 93 L 01/18/18 20:00 98.3 F 82 18 172/83 91 L 01/18/18 19:37 84 01/18/18 19:26 80 01/18/18 19:23 78 01/18/18 19:16 77 01/18/18 15:51 87 01/18/18 15:41 86 01/18/18 15:40 97.0 F L 78 16 135/62 93 L 01/18/18 12:00 80 16 140/70 91 L 01/18/18 11:11 92 01/18/18 11:01 90 Intake and Output 01/18/18 01/19/18 01/19/18 22:59 06:59 14:59 Intake Total 240 Output Total 275 1075 Balance -35 -1075 Intake: Oral 240 Output: Urine 275 1075 Other: Voiding Method Urinal Urinal # Voids 0 Weight 81.5 kg - Constitutional General appearance: no acute distress - Respiratory Respiratory: bilateral: CTA - Cardiovascular Rhythm: regular Heart sounds: normal: S1, S2 Results 01/19/18 07:56 01/19/18 07:56 Coagulation 01/19/18 Range/Units 08:07 PT 11.0 (9.0-12.0) sec CBC 01/19/18 Range/Units 07:56 WBC 4.1 (3.8-10.6) k/uL RBC 2.57 L (4.30-5.90) m/uL Hgb 7.8 L (13.0-17.5) gm/dL Hct 23.7 L (39.0-53.0) % Plt Count 248 (150-450) k/uL Comprehensive Metabolic Panel 01/19/18 Range/Units 07:56 Sodium 137 (137-145) mmol/L Potassium 4.1 (3.5-5.1) mmol/L Chloride 94 L (98-107) mmol/L Carbon Dioxide 28 (22-30) mmol/L BUN 55 H (9-20) mg/dL Creatinine 4.66 H (0.66-1.25) mg/dL Glucose 135 H (74-99) mg/dL Calcium 9.0 (8.4-10.2) mg/dL Current Medications Generic Name Dose Route Start Last Admin Trade Name Freq PRN Reason Stop Dose Admin Albuterol/Ipratropium 3 ml 01/17/18 04:40 01/17/18 11:56 Duoneb 0.5 Mg-3 Mg/3 Ml Soln INHALATION 3 ml RT-QID PRN Administration Shortness Of Breath Or Wheezing Albuterol/Ipratropium 3 ml 01/17/18 16:00 01/19/18 07:34 Duoneb 0.5 Mg-3 Mg/3 Ml Soln INHALATION 3 ml RT-QID AILYN Administration Allopurinol 200 mg 01/17/18 17:15 01/19/18 09:44 Zyloprim PO 200 mg DAILY AILYN Administration Alprazolam 0.25 mg 01/17/18 11:49 01/18/18 23:45 Xanax PO 0.25 mg TID PRN Administration Anxiety Aspirin 81 mg 01/17/18 17:15 01/19/18 09:44 Aspirin PO 81 mg DAILY AILYN Administration Budesonide 1 mg 01/17/18 20:00 01/19/18 07:34 Pulmicort INHALATION 1 mg RT-BID AILYN Administration Carvedilol 25 mg 01/17/18 17:30 01/19/18 06:46 Coreg PO 25 mg AC-BID [facility] Administration Citalopram Hydrobromide 20 mg 01/17/18 17:15 01/19/18 09:45 Celexa PO 20 mg DAILY [facility] Administration Darbepoetin Han 40 mcg 01/17/18 09:00 01/17/18 10:59 Aranesp SQ 40 mcg Q7D [facility] Administration Diphenhydramine HCl 25 mg 01/18/18 18:39 01/19/18 06:46 Benadryl PO 25 mg Q6H PRN Administration Itching Enoxaparin Sodium 40 mg 01/17/18 17:00 01/19/18 09:43 Lovenox SQ 40 mg DAILY [facility] Administration Formoterol Fumarate 20 mcg 01/17/18 20:00 01/19/18 07:34 Perforomist INHALATION 20 mcg RT-BID [facility] Administration Furosemide 250 mg/ Sodium 250 mls @ 10 mls/hr 01/17/18 08:15 01/19/18 09:46 Chloride IVP 10 mg/hr .Q24H AILYN 10 mls/hr Administration 10 MG/HR Levothyroxine Sodium 75 mcg 01/17/18 17:15 01/19/18 06:46 Synthroid PO 75 mcg DAILY@0630 [facility] Administration Lisinopril 10 mg 01/20/18 09:00 Zestril PO DAILY [facility] Magnesium Oxide 400 mg 01/17/18 17:15 01/19/18 09:45 Mag-Ox PO 400 mg DAILY [facility] Administration Methylprednisolone Sodium Succinate 40 mg 01/17/18 16:00 01/19/18 09:45 Solu-Medrol IV 40 mg Q8HR [facility] Administration Nicotine 1 patch 01/17/18 17:00 01/18/18 08:32 Habitrol 21mg/24hr Patch TRANSDERM 1 patch DAILY [facility] Administration Nicotine Polacrilex 2 mg 01/17/18 16:53 Nicorette Gum BUCCAL Q4HR PRN Nicotine Cravings Sodium Bicarbonate 1,300 mg 01/17/18 09:00 01/19/18 09:44 Sodium Bicarbonate Tab PO 1,300 mg BID AILYN Administration Spironolactone 25 mg 01/20/18 09:00 Aldactone PO DAILY AILYN Intake and Output 01/18/18 01/19/18 01/19/18 22:59 06:59 14:59 Intake Total 240 Output Total 275 1075 Balance -35 -1075 Intake: Oral 240 Output: Urine 275 1075 Other: Voiding Method Urinal Urinal # Voids 0 Weight 81.5 kg 01/19/18 07:56 01/19/18 07:56 Assessment and Plan Assessment: Assessment #1 congestive heart failure exacerbation secondary to systolic dysfunction Acute on chronic #2 severe cardiomyopathy and known if it's due to ischemic or nonischemic at this point #3 chronic kidney disease on dialysis now #4 hypertension #5 significant history of smoking Plan #1 continue the Lasix drip. #2 maximize medical treatment for cardiomyopathy. I am going to continue the Coreg, add lisinopril, and add Aldactone. Continue aspirin. #3 I am concerned about severe underlying coronary artery disease for the cardiomyopathy giving his risk factors including hypertension and smoking #4 the patient does need to have a heart catheterization once he is euvolemic and that can be done as an inpatient or outpatient #5 obtain 2 more sets of serial cardiac enzymes #6 follow-up with the patient. Thank you for allowing us participate in his care and we will continue following up with the patient
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
[2018-01-19] MEDS: NICOTINE 21MG/24HR PATCH TRANSDERM SCH (11:30)
[2018-01-19] MEDS: ACETAMINOPHEN TAB 325 MG TAB PO PRN (13:17)
[2018-01-19] MEDS: FAMOTIDINE 20 MG TAB PO SCH (15:39)
[2018-01-19] MEDS ORDERED: DESMOPRESSIN INJ 20 MCG in SODIUM CHLORIDE 0.9% 50 ML IVPB ONE (19:00)
[2018-01-19] MEDS: LISINOPRIL-HCTZ 20-12.5 MG 1 EACH TAB PO SCH (20:01)
--- NOTE | 2018-01-19 20:06 | PN ---
PROGRESS NOTE DATE OF SERVICE: 01/19/18. PRESENTING COMPLAINT: Short of breath. INTERVAL HISTORY: This patient presented with acute pulmonary edema from worsening renal failure and chronic obstructive pulmonary disease exacerbation. Patient was started on dialysis. Blood pressure is running a bit on the higher side. Breathing is getting better. Brother is present today. REVIEW OF SYSTEMS: Done for constitutional, cardiovascular, GI, pulmonary; relevant findings as above. CURRENT MEDICATIONS: Reviewed that include DuoNeb, aspirin, Coreg, IV Lasix drip, Synthroid, IV Solu-Medrol, sodium bicarb, Aldactone. EXAMINATION: On examination; Temp afebrile, pulse 76, respirations 16, blood pressure 169/82, pulse ox 98% on 2 L. GENERAL APPEARANCE: Lying in bed, more comfortable. EYES: Pupils equal. Conjunctivae normal. HEENT: External appearance of nose and ears normal. Oral cavity normal. NECK: JVD not raised. Mass not palpable. RESPIRATORY: Effort increased. Lungs, decreased breath sounds, decreased wheezing. CARDIOVASCULAR: First and second sounds, no edema. ABDOMEN: Soft, nontender. Liver and spleen not palpable. PSYCHIATRY: Alert and oriented x3. Mood and affect normal. Right chest wall has got a hemodialysis catheter in place. INVESTIGATIONS: White count 4.1, hemoglobin 7.8, potassium 4.1, BUN 55, creatinine 4.66, bicarb 28. ASSESSMENT: 1. Acute renal failure could be ATN on chronic kidney, probably end-stage kidney disease, now started on hemodialysis. 2. Severe metabolic acidosis renal failure now improved. 3. Normocytic anemia likely from chronic kidney disease. 4. Acute pulmonary edema, likely from renal failure, now improved. 5. Acute chronic obstructive pulmonary disease exacerbation in a current smoker. 6. Chronic nicotine dependence patient is a cigarette smoker. 7. End-stage kidney disease on hemodialysis. 8. Secondary hyperparathyroidism/possibly mineral bone disease of chronic kidney disease. 9. Acute congestive heart failure exacerbation from systolic dysfunction, EF 30 to 35%. 10.Rule out underlying coronary artery disease. PLAN: We will stop patient's IV Lasix drip. The patient is already on hemodialysis. The patient's dose of sodium bicarb also has been cut back. The patient's blood pressure is rather still uncontrolled. We will increase the lisinopril to 20/12.5 hydrochlorothiazide twice a day. I spoke to the patient and brother. Encouraged to be out of bed and ambulate. Also spoke to Dr. Santos. The patient will need a cardiac catheterization. High risk for underlying coronary artery disease, especially in the setting of cardiomyopathy. MMROXIEL / IJN: [id number] /
[2018-01-19] MEDS: ALPRAZolam 0.25 MG TAB PO PRN (22:41)
[2018-01-20] MEDS: LEVOTHYROXINE 75 MCG TAB PO SCH (05:50)
[2018-01-20] MEDS: CARVEDILOL 12.5 MG TAB PO SCH ×2 (05:50→17:00)
[2018-01-20] MEDS: NICOTINE 21MG/24HR PATCH TRANSDERM SCH (08:06)
[2018-01-20] MEDS: SODIUM BICARBONATE TAB 650 MG TAB PO SCH ×2 (08:06→21:27)
[2018-01-20] MEDS: predniSONE 20 MG TAB PO SCH (08:06)
[2018-01-20] MEDS: FAMOTIDINE 20 MG TAB PO SCH (08:06)
[2018-01-20] MEDS: IPRATROPIUM-ALBUTEROL 3 ML NEB INHALATION SCH ×4 (08:06→19:42)
[2018-01-20] MEDS: FORMOTEROL FUMARATE 20 MCG/2 ML NEBU INHALATION SCH ×2 (08:06→19:42)
[2018-01-20] MEDS: BUDESONIDE 1 MG/2 ML NEBU INHALATION SCH ×2 (08:06→19:42)
[2018-01-20] MEDS ORDERED: LISINOPRIL 10 MG TAB PO SCH (09:00)
--- NOTE | 2018-01-20 09:27 | P.PN ---
Subjective Progress Note Date: 01/20/18 Principal diagnosis: Severe cardiomyopathy unknown if is ischemic or nonischemic This is a pleasant 57-year-old gentleman with a past medical history significant for hypertension, stage IV chronic kidney disease, as well as significant history of smoking, presented to the emergency room complaining of progressive dyspnea. The patient was in his usual state of health but about 3-4 days before he presented to the hospital when he started experiencing progressive exertional dyspnea associated with orthopnea and also PND. He did not report any chest pain or chest discomfort, dizziness or lightheadedness, or syncope. When the patient presented to the ER he was found to be in volume overload. He also was found to be severely anemic with a hemoglobin around 6 and receives blood. Also the creatinine was around 5 and he was in acute on chronic renal failure. The patient underwent a dialysis catheter and he underwent dialysis twice. Apparently he is known to have stage IV chronic kidney disease but he was noncompliant with his appointments. An echocardiogram was performed and revealed severe cardiomyopathy with an EF around 35%. The patient is not aware of any prior cardiac history and never seen a teacher's aide in the past. The EKG showed sinus rhythm with diffuse nonspecific ST and T wave abnormalities quite concerning for ischemia. The chest x-ray showed findings consistent with CHF. The first set of troponin came in to be mildly elevated but the second set of troponin came in to be around 5. On follow-up with the patient today, he is feeling better indeterminable shortness of breath. No chest pain or chest discomfort. I did add lisinopril as well as Aldactone to the current medical regimen with chordee and aspirin. Currently he is on maximize medical treatment. He seems to be euvolemic. Objective - Vital Signs Vital signs: Vital Signs Temp 97 F L 01/20/18 08:00 Pulse 76 01/20/18 08:30 Resp 17 01/20/18 08:00 BP 134/67 01/20/18 08:00 Pulse Ox 93 L 01/20/18 08:00 Intake & Output 01/19/18 01/20/18 01/20/18 18:59 06:59 18:59 Intake Total 410 245 240 Output Total 900 550 Balance -490 -305 240 Weight 80.6 kg Intake: Intake, IV Titration 45 Amount Desmopressin Inj 20 mcg 25 In Sodium Chloride 0.9% 50 ml @ 13.75 mls/hr IV[facility] Rx#:[id number] Furosemide 250 mg In 20 Sodium Chloride 0.9% 225 ml @ 10 MG/HR 10 mls/hr IVP .Q24H [facility] Rx#: [id number] Oral 410 200 240 Output: Urine 900 550 Other: Voiding Method Urinal Urinal - Constitutional General appearance: Present: no acute distress - Respiratory Respiratory: bilateral: CTA - Cardiovascular Rhythm: regular Heart sounds: normal: S1, S2 - Labs CBC & Chem 7: 01/19/18 07:56 01/19/18 07:56 Labs: Abnormal Lab Results - Last 24 Hours (Table) 01/18/18 01/19/18 Range/Units 11:46 07:56 Iron 30 L (65-175) ug/dL Iron Saturation 11.36 L (15.00-50.00) Troponin I 5.780 H* (0.000-0.034) ng/mL Assessment and Plan Assessment: Assessment #1 congestive heart failure exacerbation secondary to systolic dysfunction Acute on chronic #2 severe cardiomyopathy and known if it's due to ischemic or nonischemic at this point #3 acute non-ST deviation myocardial infarction #4 hypertension #5 significant history of smoking Plan #1 continue the current medical treatment which is maximized which include aspirin, Coreg, lisinopril, and Aldactone #2 I am going to add Plavix to the current medical regimen in view of the acute non-ST deviation myocardial infarction #3 I am concerned about severe underlying coronary artery disease for the cardiomyopathy giving his risk factors including hypertension and smoking #4 the patient does need to have a heart catheterization once he is euvolemic and that can be done as an inpatient or outpatient #5 follow-up with the patient. Thank you for allowing us participate in his care and we will continue following up with the patient
[2018-01-20] MEDS: LISINOPRIL-HCTZ 20-12.5 MG 1 EACH TAB PO SCH ×2 (11:34→21:27)
[2018-01-20] MEDS: ALLOPURINOL 100 MG TAB PO SCH (11:34)
[2018-01-20] MEDS: MAGNESIUM OXIDE 400 MG TAB PO SCH (11:35)
[2018-01-20] MEDS: ASPIRIN 81 MG PO SCH (11:35)
[2018-01-20] MEDS: SPIRONOLACTONE 25 MG TAB PO SCH (11:35)
[2018-01-20] MEDS: CITALOPRAM HYDROBROMIDE 20 MG TAB PO SCH (11:35)
[2018-01-20] MEDS: ENOXAPARIN 30 MG/0.3 ML SYRINGE SQ SCH (11:36)
[2018-01-20] MEDS ORDERED: SODIUM CHLORIDE 0.9% 1,000 ML in EMPTY BAG 1 BAG IV ONE (12:39)
[2018-01-20] MEDS ORDERED: ASPIRIN 325 MG TAB PO STA (12:39)
[2018-01-20] MEDS ORDERED: NITROGLYCERIN SL TABS 0.4 MG TAB SUBLINGUAL PRN (12:39)
[2018-01-20] MEDS ORDERED: ATORVASTATIN 80 MG TAB PO STA (12:39)
--- NOTE | 2018-01-20 13:23 | P.PN ---
Subjective Progress Note Date: 01/20/18 Principal diagnosis: Acute hypoxemic restaurant failure, fluid overload secondary to acute kidney injury, chronic anemia, and COPD exacerbation. Progress note dated 01/19/2018 This is a 57-year-old white male who presented with acute hypoxemic respiratory failure secondary to fluid overload/pulmonary edema from acute renal fire, anemia, and COPD exacerbation. The patient's chest x-ray slightly improved. Volume status is improved. He didn't get dialysis yesterday. Overall he is feeling better. 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 Yesterday we spent a great deal of time counseling him about the importance of smoking cessation. We did this in front of his daughter. The patient denies any cough or phlegm production. No fever chills. No chest pain or chest discomfort. No nausea vomiting or diarrhea. Labs today show a white count of 4.1 hemoglobin 7.8 hematocrit 23.7 and a platelet count that is normal. Sodium potassium normal chloride 94 CO2 28 BUN and creatinine were 55 and 4.66, compared to 69 and 7.80 on admission. N-terminal pro BNP was 49,400 on the fifth. Chest x-ray shows some mild fluid overload and small pleural effusions. On 01/20/2018 patient seen in follow-up on selective care unit. He is having his third hemodialysis treatment today, his breathing is easier, lung sounds are positive for mild bibasilar crackles, no rhonchi or wheezes noted. Some prolongation of expiratory phase. Overall no acute distress. He is resting comfortably in bed. He states that she is still smoking up to 2 packs a day, and most likely will be smoking again after discharge. Room air pulse ox is 94% , she is afebrile, vital signs are stable, denies any chest pain, he is alert, awake, oriented 3. No new labs were chest x-rays today, other than troponin which is trending down and is down to 3.370. Latest chest x-ray from [address] Chinchilla and showed COPD, cardiomegaly, mild vascular congestion, and small bilateral effusions. No acute events overnight, patient was advised to get up and sit up in the chair and ambulate with assistance after the hemodialysis. Objective - Vital Signs Vital signs: Vital Signs Temp 97 F L 01/20/18 08:00 Pulse 76 01/20/18 11:52 Resp 18 01/20/18 11:43 BP 163/79 01/20/18 11:43 Pulse Ox 94 L 01/20/18 11:43 Intake & Output 01/19/18 01/20/18 01/20/18 18:59 06:59 18:59 Intake Total 410 245 480 Output Total 900 550 Balance -490 -305 480 Weight 80.6 kg Intake: Intake, IV Titration 45 Amount Desmopressin Inj 20 mcg 25 In Sodium Chloride 0.9% 50 ml @ 13.75 mls/hr IVPB ONCE ONE Rx#:[id number] Furosemide 250 mg In 20 Sodium Chloride 0.9% 225 ml @ 10 MG/HR 10 mls/hr IVP .Q24H AILYN Rx#: [id number] Oral 410 200 480 Output: Urine 900 550 Other: Voiding Method Urinal Urinal # Voids 0 - Exam No acute distress, oriented 3. Nasal O2 in place. HEENT examination is grossly unremarkable. Mucous membranes are moist. No oral lesions. Neck supple. Full range of motion. No adenopathy thyromegaly or neck vein distention. Cardiovascular examination reveals regular rhythm rate. S1-S2 normal. No S3 or S4. No discernible murmur noted. Lungs reveal mild bibasilar crackles. A few scattered rhonchi are noted. No wheezes. Breath sounds are diminished throughout but equal bilaterally. There is prolongation on forced maneuver. Abdomen soft bowel sounds are heard. No masses or tenderness. Extremities are intact. Left upper extremity amputation. No cyanosis clubbing or significant edema.. Skin is without rash or lesion. Neurologic examination is brief but nonfocal. - Labs CBC & Chem 7: 01/19/18 07:56 01/19/18 07:56 Labs: Abnormal Lab Results - Last 24 Hours (Table) 01/18/18 01/20/18 Range/Units 11:46 09:40 Iron 30 L (65-175) ug/dL Iron Saturation 11.36 L (15.00-50.00) Troponin I 3.370 H* (0.000-0.034) ng/mL Assessment and Plan Plan: Assessment: Acute hypoxemic respiratory failure, multifactorial, in part related to underlying fluid overload from his renal failure, chronic anemia, and COPD exacerbation, improved Acute on chronic kidney injury requiring hemodialysis Anemia of chronic disease Hypertension by history Chronic and ongoing tobacco dependence with likely underlying COPD History of hypothyroidism History of remote left upper extremity amputation Plan: Continue nebulized bronchodilators, continue Pulmicort and Perforomist, continue prednisone, increase activity as tolerated once the hemodialysis treatment is complete. No worsening dyspnea, no chest pain. On room air. Smoking cessation was strongly encouraged. Continue to follow I performed a history & physical examination of the patient and discussed their management with my nurse practitioner, Simin Easton. I reviewed the nurse practitioner's note and agree with the documented findings and plan of care. Lung sounds are positive for a few scattered rhonchi and rales. The findings and the impression was discussed with the patient. I attest to the documentation by the nurse practitioner. Time with Patient: Less than 30
[2018-01-20] MEDS: IPRATROPIUM-ALBUTEROL 3 ML NEB INHALATION PRN (15:43)
--- NOTE | 2018-01-20 20:00 | PN ---
PROGRESS NOTE Patient is seen for followup for end-stage renal disease, is currently seen on dialysis. The patient is tolerating his treatment well. He did rule in for an acute myocardial infarction and I did discuss with Dr. Santos. The patient will likely need cardiac catheterization and it is okay to proceed with cardiac cath from Nephrology standpoint. PHYSICAL EXAMINATION: Blood pressure this morning was 134/67, heart rate 80 per minute. He is afebrile. Examination of the heart: S1, S2. Examination lungs: Bilateral breath sounds are heard. Abdomen is soft, nontender. Examination lower extremities shows no evidence of edema. Patient has left upper extremity amputation below the elbow. Patient is moving all 4 extremities. LABS SHOW: Potassium 4.1, sodium 137. Hemoglobin was low at 7.8 g/dL yesterday. ASSESSMENT: 1. End-stage renal disease, currently started on dialysis. Patient will be set up at the [facility] on a Saturday, Saturday, Saturday schedule. 2. Anemia with severe iron deficiency noted. Patient is maintained on Aranesp. I will start iron. 3. Hypertension. Blood pressure is controlled better. It had been running high. The patient is currently on Zestoretic. A small dose of hydrochlorothiazide will not add much to the hypertension given the significantly low GFR. This can be switched over to regular Zestril. 4. Uremia, currently improved. 5. Metabolic acidosis, now resolved with continued dialysis. PLAN: DC sodium bicarb. Start IV iron and the patient and it is okay to proceed with cardiac catheterization from Nephrology standpoint. MMODL / IJN: [id number] /
[2018-01-20] MEDS: SODIUM FERRIC GLUCONAT-SUCROSE 125 MG in SODIUM CHLORIDE 0.9% 100 ML IVPB SCH (20:19)
[2018-01-20] MEDS: diphenhydrAMINE 25 MG CAP PO PRN (21:27)
[2018-01-20] MEDS: ALPRAZolam 0.25 MG TAB PO PRN (21:27)
--- NOTE | 2018-01-20 21:27 | PN ---
PROGRESS NOTE DATE OF SERVICE: 01/20/2018. PRESENTING COMPLAINT: Tired. INTERVAL HISTORY: This patient presented with acute pulmonary edema, also found to have acute non-Q-wave ID and acute renal failure and chronic obstructive pulmonary disease exacerbation. Tolerating dialysis. Breathing is much better. Has been up and about in the hallway. REVIEW OF SYSTEMS: Done for constitutional, cardiovascular, GI, pulmonary; relevant findings as above. CURRENT MEDICATIONS: Reviewed. EXAMINATION: Afebrile, pulse 61, respiratory rate 18, blood pressure 163/79, pulse ox 94% on room. GENERAL APPEARANCE: Lying in bed comfortable. EYES: Pupils equal. Conjunctivae normal. HEENT: External appearance of nose and ears normal. Oral cavity normal. NECK: JVD not raised. Mass not palpable. Respiratory effort increased. LUNGS: Decreased breath sounds, minimal wheezing. CARDIOVASCULAR: 1st and 2nd heart sounds normal. No edema. ABDOMEN: Soft, nontender. Liver and spleen not palpable. PSYCHIATRY: Alert and oriented x3. Mood normal. SKIN: Chest wall, right side has a hemodialysis catheter in place. INVESTIGATIONS: Troponins noted up to 5.7 and 3.3. ASSESSMENT: 1. Acute renal failure, probably ATN on chronic kidney disease, now probably end- stage. Started on hemodialysis. 2. Severe metabolic acidosis from renal failure, improved. 3. Normocytic anemia, likely from chronic kidney disease. 4. Acute pulmonary edema, renal failure. 5. Acute chronic obstructive pulmonary disease exacerbation in a current smoker, improved. 6. Chronic nicotine dependence. Patient is a cigarette smoker. 7. Secondary hyperparathyroidism/mineral bone disease of chronic kidney disease. 8. Acute congestive heart failure exacerbation from systolic dysfunction, ejection fraction of 30% to 35%. 9. Acute non-Q-wave myocardial infarction. PLAN: We will make the patient n.p.o. after midnight for possible cardiac catheterization. The patient's antihypertensives were adjusted yesterday. Care was discussed with the patient. MMODL / IJN: [id number] /
[2018-01-21 05:56] LABS: Glucose,Whole Blood 114 mg/dL (75-99)
[2018-01-21] MEDS: LEVOTHYROXINE 75 MCG TAB PO SCH (06:42)
[2018-01-21] MEDS: CARVEDILOL 12.5 MG TAB PO SCH ×2 (06:42→18:27)
[2018-01-21] MEDS: BUDESONIDE 1 MG/2 ML NEBU INHALATION SCH ×2 (07:48→20:21)
[2018-01-21] MEDS: IPRATROPIUM-ALBUTEROL 3 ML NEB INHALATION SCH ×4 (07:48→20:21)
[2018-01-21] MEDS: FORMOTEROL FUMARATE 20 MCG/2 ML NEBU INHALATION SCH ×2 (07:48→20:21)
[2018-01-21] MEDS: ALLOPURINOL 100 MG TAB PO SCH (08:26)
[2018-01-21] MEDS: NICOTINE 21MG/24HR PATCH TRANSDERM SCH (08:26)
[2018-01-21] MEDS: CITALOPRAM HYDROBROMIDE 20 MG TAB PO SCH (08:26)
[2018-01-21] MEDS: LISINOPRIL-HCTZ 20-12.5 MG 1 EACH TAB PO SCH (08:27)
[2018-01-21] MEDS: FAMOTIDINE 20 MG TAB PO SCH (08:27)
[2018-01-21] MEDS: predniSONE 20 MG TAB PO SCH (08:27)
[2018-01-21] MEDS: SODIUM BICARBONATE TAB 650 MG TAB PO SCH (08:27)
[2018-01-21] MEDS: MAGNESIUM OXIDE 400 MG TAB PO SCH (08:27)
[2018-01-21] MEDS: ASPIRIN 81 MG PO SCH (08:32)
[2018-01-21] MEDS: ENOXAPARIN 30 MG/0.3 ML SYRINGE SQ SCH (08:36)
[2018-01-21] MEDS ORDERED: LIDOCAINE 1% INJ 10MG/ML (20 ML MDV) ONE (09:04)
[2018-01-21] MEDS ORDERED: VERAPAMIL 2.5 MG/ML 2 ML AMP ONE ×2 (09:10→09:23)
[2018-01-21] MEDS ORDERED: MIDAZOLAM 2 MG/2 ML VIAL ONE (09:13)
[2018-01-21 09:14] LABS: Anisocytosis Slight; Basophils % (A) 0 %; Eosinophils # (A) 0.1 k/uL (0-0.7); Eosinophils % (A) 2 %; HCT 24.8 % (39.0-53.0); HGB 8.2 gm/dL (13.0-17.5); Lymphocytes # (A) 0.6 k/uL (1.0-4.8); Lymphocytes % (A) 10 %; MCH 30.9 pg (25.0-35.0); MCHC 33.3 g/dL (31.0-37.0); Mean Platelet Volume 6.6; Monocytes # (A) 0.5 k/uL (0-1.0); Monocytes % (A) 8 %; Neutrophils # (A) 4.8 k/uL (1.3-7.7); Neutrophils % (A) 78 %; Platelet Count 238 k/uL (150-450); RBC 2.66 m/uL (4.30-5.90); RDW 16.2 % (11.5-15.5); WBC 6.1 k/uL (3.8-10.6)
[2018-01-21] MEDS ORDERED: IV FLUID CONTINUATION 1,000 ML IV ONE (09:22)
[2018-01-21] MEDS ORDERED: HEPARIN SODIUM 1,000 UN/ML (10ML VL) ONE (09:23)
[2018-01-21] MEDS: MIDAZOLAM 2 MG/2 ML VIAL IVP ONE ×2 (09:27→09:44)
[2018-01-21] MEDS ORDERED: LIDOCAINE 1% INJ 10MG/ML (20 ML MDV) SQ ONE (09:38)
[2018-01-21] MEDS ORDERED: VERAPAMIL SYRINGE (5 MG/10 ML) INTRAARTER ONE (09:41)
[2018-01-21] MEDS ORDERED: HEPARIN SODIUM 1,000 UN/ML (10ML VL) IV ONE (09:42)
[2018-01-21] MEDS: VERAPAMIL SYRINGE (5 MG/10 ML) INTRAARTER ONE ×2 (09:42→09:54)
[2018-01-21] MEDS ORDERED: IOPAMIDOL-370 125ML BTL INJ ONE (09:54)
[2018-01-21] MEDS ORDERED: RX INFO: IV CONTRAST WAS GIVEN 1 EACH MISC MISCELLANE PRN (10:01)
[2018-01-21] MEDS ORDERED: SODIUM CHLORIDE 0.9% 1,000 ML IV SCH (10:15)
--- NOTE | 2018-01-21 10:31 | CC ---
CARDIAC CATHETERIZATION REPORT DATE OF SERVICE: 01/21/2018 PERFORMING PHYSICIAN: Alessio aSntos MD, Legal File Clerk. PROCEDURE PERFORMED: 1. Selective right and left coronary angiogram. 2. Left heart catheterization. INDICATION: This is a pleasant 57-year-old gentleman with a past medical history significant for hypertension as well as significant history of smoking, who was admitted to the hospital with congestive heart failure. An echocardiogram was performed and revealed severe cardiomyopathy with EF about 30%-35%. His cardiac enzymes were checked and came in to be abnormal and consistent with acute non ST-elevation myocardial infarction. A heart catheterization was recommended to rule out any severe underlying coronary artery disease given his risk factors of hypertension, as well as significant history of smoking. APPROACH: Right radial artery. COMPLICATION: None. LEVEL OF SEDATION: Moderate sedation length of 21 minutes. PROCEDURE DESCRIPTION: After obtaining an informed consent, the patient was brought to the cardiac manufacturing laborer. The right radial artery was cannulated using micropuncture technique, the micropuncture wire passed easily, then I placed a 6-[place] sheath in the right radial artery. After that I gave the patient 2 mg of verapamil IA and 8000 units of heparin IV. Subsequently, I did selective right and left coronary angiogram using JR4 and JL3.5 catheters. Left heart catheterization was performed using the JR4 catheter which flipped into the LV, then I did pullback across the aortic valve. The procedure was completed without any complication. SELECTIVE CORONARY ANGIOGRAM: 1. The RCA is a large caliber vessel and it is a dominant vessel. The RCA is calcified and occluded in the midportion. It fills by collateral from the left coronary system. 2. The left main is calcified without any obstructive disease. It bifurcates into left circumflex and left anterior descending artery. 3. The left circumflex is a large caliber vessel. It is a non-dominant vessel. The proximal left circumflex appeared to have a tight lesion in the range of 70% to 80%. The mid left circumflex has another lesion in the range of 90% to 99%. This lesion is just after the bifurcation of the first and second obtuse marginal branches and both appeared to be angiographically normal. 4. The LAD: The proximal LAD by the bifurcation of a large diagonal branch appeared to have a lesion in the range of 80% to 90%. The first diagonal branch itself appeared to have severe disease in its proximal portion. The mid LAD appeared to have mild disease only. The LAD distally in the apical area appeared to have a tight lesion. HEMODYNAMICS: The left ventricular end-diastolic pressure was 18-20 mmHg and no gradient was identified across the aortic valve. CONCLUSION: 1. Calcified right and left coronary systems. 2. Severe triple-vessel coronary artery disease. 3. Total occlusion of the right coronary artery in the midportion and fills by collaterals from the left coronary system. 4. Critical disease involving the mid left circumflex. 5. Critical disease involving the proximal left anterior descending artery. POSTPROCEDURE MANAGEMENT: 1. Maximize medical treatment at this point of time. 2. I will consult surgeon for the evaluation of coronary artery bypass grafting. 3. Further recommendation to follow that. MMODL / IJN: [id number] /
[2018-01-21] MEDS: SODIUM FERRIC GLUCONAT-SUCROSE 125 MG in SODIUM CHLORIDE 0.9% 100 ML IVPB SCH (11:13)
[2018-01-21] MEDS: SPIRONOLACTONE 25 MG TAB PO SCH (11:14)
--- NOTE | 2018-01-21 11:16 | P.PN ---
Subjective Progress Note Date: 01/21/18 Principal diagnosis: Acute hypoxic respiratory failure secondary to acute fluid volume overload secondary to acute renal failure. This a very pleasant 57-year-old gentleman who follows with Dr. Hastings as his primary care physician. He apparently hasn't seen him in over 2 years. 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 He has a 40 year pack per day smoking history. He presented to the emergency room yesterday at [facility] with complaints of increasing shortness of breath, cough and congestion. He was placed on BiPAP and subsequently transferred here for further treatment. Chest x-ray revealed evidence of fluid volume overload and pulmonary edema. Initial labs revealed a hemoglobin of 6.9, creatinine 7.80, bicarbonate 13, troponin 0.231, proBNP 49, 400. He was admitted to the selective care unit. He is seen there today in consultation. Currently on BiPAP 06/19 at 45% FiO2. He is awake and alert in mild respiratory distress. Labs today revealed RBC 4.4, hemoglobin 6.0. He is receiving his first unit of packed red blood cells. He is currently on a Lasix drip at 10 mg per hour. Nitroglycerin drip at 5 mcg/m. He is receiving sodium bicarb orally. He's been initiated on bronchodilators as needed. Nephrology is on the case. Patient is seen today 01/18/2018 in follow-up on the selective care unit. He is awake and alert in no acute distress. He is breathing quite a bit easier today as compared to yesterday. He did utilize the BiPAP throughout the evening and is currently on 4 L/m per nasal cannula to maintain O2 saturations in the 90s. He did undergo vascular access catheter and is currently receiving hemodialysis. He remains on the Lasix drip at 10 mg per hour. He is continued on his COPD exacerbation medications as well. Progress note dated 01/19/2018 This is a 57-year-old white male who presented with acute hypoxemic respiratory failure secondary to fluid overload/pulmonary edema from acute renal fire, anemia, and COPD exacerbation. The patient's chest x-ray slightly improved. Volume status is improved. He didn't get dialysis yesterday. Overall he is feeling better. 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 Yesterday we spent a great deal of time counseling him about the importance of smoking cessation. We did this in front of his daughter. The patient denies any cough or phlegm production. No fever chills. No chest pain or chest discomfort. No nausea vomiting or diarrhea. Labs today show a white count of 4.1 hemoglobin 7.8 hematocrit 23.7 and a platelet count that is normal. Sodium potassium normal chloride 94 CO2 28 BUN and creatinine were 55 and 4.66, compared to 69 and 7.80 on admission. N-terminal pro BNP was 49,400 on the fifth. Chest x-ray shows some mild fluid overload and small pleural effusions. On 01/20/2018 patient seen in follow-up on selective care unit. He is having his third hemodialysis treatment today, his breathing is easier, lung sounds are positive for mild bibasilar crackles, no rhonchi or wheezes noted. Some prolongation of expiratory phase. Overall no acute distress. He is resting comfortably in bed. He states that she is still smoking up to 2 packs a day, and most likely will be smoking again after discharge. Room air pulse ox is 94% , she is afebrile, vital signs are stable, denies any chest pain, he is alert, awake, oriented 3. No new labs were chest x-rays today, other than troponin which is trending down and is down to 3.370. Latest chest x-ray from [address] Chinchilla and showed COPD, cardiomegaly, mild vascular congestion, and small bilateral effusions. No acute events overnight, patient was advised to get up and sit up in the chair and ambulate with assistance after the hemodialysis. The patient is seen today 01/21/2018 in follow-up on the selective care unit. He is awake and alert in no acute distress. He denies any worsening shortness of breath, cough or congestion. Maintaining good O2 saturations in the upper 90s on room air. He's been afebrile. White count 6.1. Hemoglobin 8.2. The plan is for hemodialysis on Saturday schedule. He did undergo cardiac catheterization this morning which revealed a calcified right and left coronary systems. Severe triple-vessel coronary artery disease. Total occlusion of the RCA in the midportion been filled by collaterals from the left. Critical disease involving the mid left circumflex, critical disease involving the proximal LAD. Cardiothoracic surgeons are being consulted. Objective - Vital Signs Vital signs: Vital Signs Temp 96.9 F L 01/21/18 08:00 Pulse 64 01/21/18 08:11 Resp 18 01/21/18 08:00 BP 138/67 01/21/18 08:00 Pulse Ox 98 01/21/18 08:00 Intake & Output 01/20/18 01/21/18 01/21/18 18:59 06:59 18:59 Intake Total 720 240 100 Output Total 0 Balance 720 240 100 Weight 78.7 kg Intake: IV 100 Oral 720 240 Output: Urine 0 Other: Voiding Method Urinal # Voids 1 2 - Exam GENERAL EXAM: Alert, fairly comfortable in mild respiratory distress. HEAD: Normocephalic. EYES: Normal reaction of pupils, equal size. NOSE: Clear with pink turbinates. THROAT: No erythema or exudates. NECK: No masses, no JVD. CHEST: No chest wall deformity. LUNGS: Equal air entry with crackles in the bilateral posterior bases. Faint end expiratory wheeze. Diminished. CVS: S1 and S2 normal with no audible murmur, regular rhythm. ABDOMEN: No hepatosplenomegaly, normal bowel sounds, no guarding or rigidity. SPINE: No scoliosis or deformity SKIN: No rashes CENTRAL NERVOUS SYSTEM: No focal deficits, tone is normal in all 4 extremities. EXTREMITIES: Left upper extremity amputation. There is no peripheral edema. No clubbing, no cyanosis. Peripheral pulses are intact. - Labs CBC & Chem 7: 01/21/18 09:00 01/19/18 07:56 Labs: Abnormal Lab Results - Last 24 Hours (Table) 01/21/18 01/21/18 Range/Units 05:53 09:00 RBC 2.66 L (4.30-5.90) m/uL Hgb 8.2 L (13.0-17.5) gm/dL Hct 24.8 L (39.0-53.0) % RDW 16.2 H (11.5-15.5) % Lymphocytes # 0.6 L (1.0-4.8) k/uL POC Glucose (mg/dL) 114 H (75-99) mg/dL Assessment and Plan Assessment: Impression: #1 Acute hypoxic respiratory failure secondary to fluid volume overload/ pulmonary edema secondary to acute renal failure, anemia, suspected chronic obstructive pulmonary disease exacerbation. #2 Acute kidney injury in a patient with a known history of chronic kidney disease. #3 Acute non-ST segment elevation myocardial infarction with ischemic cardiomyopathy and ejection fraction 30-35%, found to have severe triple-vessel disease and cardiac catheterization today.. #4 Hypertension, better controlled. #5 Chronic and ongoing tobacco dependence. #6 Hypothyroidism. #7 History of left upper extremity amputation. #8 History of cardiac emboli. #9 Acute anemia suspect secondary to chronic kidney disease. No evidence of active bleeding. Plan: The patient was seen and evaluated by Dr. Chinchilla. Patient did undergo cardiac catheterization was found to have severe ischemic cardiomyopathy with ejection fraction 30-35% along with severe triple-vessel coronary artery disease. Patient with cardiothoracic surgeon pending. In the interim, we will continue to treat him for suspected COPD exacerbation. Continue bronchodilators 4 times a day and when necessary, Pulmicort and Perforomist inhalations twice a day. He is educated regarding the importance of complete smoking cessation. NicoDerm patch applied. Hemodialysis Saturday. We will continue to follow and make further recommendations based on his clinical status. I, the cosigning physician, performed a history & physical examination of the patient. Lungs sounds with crackles in the bilateral posterior bases. Diminished.. Maintaining good O2 saturations in the 90s on room air. I discussed the assessment and plan of care with my nurse practitioner, Elizabeth Nevarez. I attest to the above progress note as dictated by her.
--- NOTE | 2018-01-21 12:22 | PN ---
PROGRESS NOTE Patient is seen for followup for end-stage renal disease. He had his cardiac catheterization today which showed significant coronary artery disease with 99% to 100% stenosis in most of his major coronary arteries. Cardiothoracic surgery consult is currently pending. PHYSICAL EXAMINATION: On examination, blood pressure is 138/67, heart rate 64 per minute. Patient is afebrile. EXAMINATION OF THE HEART: S1 and S2. EXAMINATION OF THE LUNGS: Bilateral breath sounds are heard. Abdomen is soft, nontender. Examination of the lower extremities shows no evidence of edema. LABS: Labs show sodium of 137, potassium 4.1. Troponin was down to 3.3. Hemoglobin 8.2 g/dL. ASSESSMENT: 1. End-stage renal disease started on hemodialysis. The patient will be going to [facility] on a Saturday, Saturday, Saturday schedule. 2. Anemia with significant iron deficiency noted. Maintained on Aranesp and IV iron. 3. Iron deficiency, started on . 4. [id number] acute myocardial infarction, status post cardiac catheterization with significant coronary artery disease noted. Currently pending cardiothoracic surgery consult. 5. Hypertension, currently controlled. PLAN: Hemodialysis in a.m. Switch lisinopril hydrochlorothiazide to regular lisinopril as hydrochlorothiazide will not be beneficial once the GFR is below 25 to 30 mL/minute. I will also the sodium bicarb. MMODL / IJN: [id number] /
--- NOTE | 2018-01-22 01:16 | PN ---
PROGRESS NOTE DATE OF SERVICE: 01/21/2018 PRESENTING COMPLAINT: Tired. INTERVAL HISTORY: Patient presented with acute pulmonary edema; also found to have acute non-Q-wave myocardial infarction, acute renal failure, and COPD exacerbation. Patient was started on hemodialysis. Patient did undergo cardiac catheterization this morning, found to have triple-vessel disease. Cardiothoracic Surgery has been consulted. Patient is aware of the above. REVIEW OF SYSTEMS: Done for constitutional, cardiovascular, GI, pulmonary; relevant findings as above. CURRENT MEDICATIONS: Reviewed. PHYSICAL EXAMINATION: Temperature afebrile, pulse 60, respiration 16, blood pressure 116/68, pulse ox 98% on room air. GENERAL APPEARANCE: Lying in bed, awake. EYES: Pupils equal. Conjunctivae normal. HEENT: External appearance of nose and ears normal. Oral cavity normal. NECK: JVD not raised. Mass not palpable. RESPIRATORY: Effort increased. LUNGS: Decreased breath sounds. Decreased wheezing. CARDIOVASCULAR: First and second sounds normal. No edema. ABDOMEN: Soft, non-tender. Liver and spleen not palpable. PSYCHIATRY: Alert and oriented x3. Mood and affect normal. INVESTIGATIONS: Cardiac cath results are noted. White count 6.1, hemoglobin 8.2. ASSESSMENT: 1. Acute renal failure, probably acute tubular necrosis, on chronic kidney disease resulting in end-stage kidney disease; now patient is on hemodialysis. 2. Severe metabolic acidosis from renal failure, improved. 3. Normocytic anemia secondary to chronic kidney disease. 4. Acute pulmonary edema from acute myocardial infarction and renal failure. 5. Acute chronic obstructive pulmonary disease exacerbation in a current smoker, now improved. 6. Chronic nicotine dependence. Patient is a cigarette smoker. 7. Secondary hyperparathyroidism/mineral bone disease of chronic kidney disease. 8. Acute congestive heart failure exacerbation from systolic dysfunction, ejection fraction 30% to 35%, from underlying coronary artery disease. 9. Acute non-Q-wave myocardial infarction. 10.Cardiac catheterization showing triple-vessel coronary artery disease. PLAN: Cardiothoracic Surgery has been consulted. Continue current medication and treatment plan. Care was discussed with the patient. MMODL / IJN: [id number] /
[2018-01-22] MEDS: NICOTINE 21MG/24HR PATCH TRANSDERM SCH (06:52)
[2018-01-22] MEDS: LEVOTHYROXINE 75 MCG TAB PO SCH (06:52)
[2018-01-22] MEDS: CARVEDILOL 12.5 MG TAB PO SCH ×2 (06:52→18:38)
[2018-01-22] MEDS: ASPIRIN 81 MG PO SCH (07:56)
[2018-01-22] MEDS: FAMOTIDINE 20 MG TAB PO SCH (07:56)
[2018-01-22] MEDS: LISINOPRIL 20 MG TAB PO SCH (07:56)
[2018-01-22] MEDS: CITALOPRAM HYDROBROMIDE 20 MG TAB PO SCH (07:56)
[2018-01-22] MEDS: SPIRONOLACTONE 25 MG TAB PO SCH (07:56)
[2018-01-22] MEDS: ENOXAPARIN 30 MG/0.3 ML SYRINGE SQ SCH (07:56)
[2018-01-22] MEDS: MAGNESIUM OXIDE 400 MG TAB PO SCH (07:56)
[2018-01-22] MEDS: ALLOPURINOL 100 MG TAB PO SCH (07:56)
[2018-01-22] MEDS: predniSONE 20 MG TAB PO SCH (07:56)
[2018-01-22] MEDS: FORMOTEROL FUMARATE 20 MCG/2 ML NEBU INHALATION SCH ×2 (08:34→19:14)
[2018-01-22] MEDS: IPRATROPIUM-ALBUTEROL 3 ML NEB INHALATION SCH ×4 (08:34→19:14)
[2018-01-22] MEDS: BUDESONIDE 1 MG/2 ML NEBU INHALATION SCH ×2 (08:34→19:14)
--- NOTE | 2018-01-22 08:48 | P.PN ---
Subjective Progress Note Date: 01/22/18 Principal diagnosis: Severe cardiomyopathy unknown if is ischemic or nonischemic This is a pleasant 57-year-old gentleman with a past medical history significant for hypertension, stage IV chronic kidney disease, as well as significant history of smoking, presented to the emergency room complaining of progressive dyspnea. The patient was in his usual state of health but about 3-4 days before he presented to the hospital when he started experiencing progressive exertional dyspnea associated with orthopnea and also PND. He did not report any chest pain or chest discomfort, dizziness or lightheadedness, or syncope. When the patient presented to the ER he was found to be in volume overload. He also was found to be severely anemic with a hemoglobin around 6 and receives blood. Also the creatinine was around 5 and he was in acute on chronic renal failure. The patient underwent a dialysis catheter and he underwent dialysis twice. Apparently he is known to have stage IV chronic kidney disease but he was noncompliant with his appointments. An echocardiogram was performed and revealed severe cardiomyopathy with an EF around 35%. The patient is not aware of any prior cardiac history and never seen a pressure testing technician in the past. The EKG showed sinus rhythm with diffuse nonspecific ST and T wave abnormalities quite concerning for ischemia. The chest x-ray showed findings consistent with CHF. The first set of troponin came in to be mildly elevated but the second set of troponin came in to be around 5. The patient underwent a heart catheterization yesterday and that revealed severe triple-vessel CAD. He was seen and evaluated by cardiothoracic surgeons for possible coronary artery bypass grafting and the patient does not want surgery. Objective - Vital Signs Vital signs: Vital Signs Temp 97.6 F 01/22/18 08:00 Pulse 56 L 01/22/18 08:34 Resp 16 01/22/18 08:00 BP 166/72 01/22/18 08:00 Pulse Ox 95 01/22/18 08:00 Intake & Output 01/21/18 01/22/18 01/22/18 18:59 06:59 18:59 Intake Total 100 250 Output Total 600 Balance 100 -600 250 Weight 84.7 kg Intake: IV 100 10 Invasive Line 4 10 Oral 240 Output: Urine 600 Other: Voiding Method Urinal Toilet Urinal - Constitutional General appearance: Present: no acute distress - Respiratory Respiratory: bilateral: CTA - Cardiovascular Rhythm: regular Heart sounds: normal: S1, S2 - Labs CBC & Chem 7: 01/21/18 09:00 01/19/18 07:56 Labs: Abnormal Lab Results - Last 24 Hours (Table) 01/21/18 Range/Units 09:00 RBC 2.66 L (4.30-5.90) m/uL Hgb 8.2 L (13.0-17.5) gm/dL Hct 24.8 L (39.0-53.0) % RDW 16.2 H (11.5-15.5) % Lymphocytes # 0.6 L (1.0-4.8) k/uL Assessment and Plan Assessment: Assessment #1 congestive heart failure exacerbation secondary to systolic dysfunction Acute on chronic #2 severe cardiomyopathy and known if it's due to ischemic or nonischemic at this point #3 acute non-ST deviation myocardial infarction #4 hypertension #5 significant history of smoking Plan #1 continue the current medical treatment which is maximized which include aspirin, Coreg, lisinopril, and Aldactone #2 the patient was seen and evaluated by cardiothoracic surgeon and he does not want surgery to be done. #3 I will schedule the patient to undergo a PCI in the next 24-48 hours.
[2018-01-22] MEDS: SODIUM FERRIC GLUCONAT-SUCROSE 125 MG in SODIUM CHLORIDE 0.9% 100 ML IVPB SCH (09:00)
--- NOTE | 2018-01-22 09:40 | P.GSCN ---
History of Present Illness Consult date: 01/22/18 Reason for Consult: Coronary artery disease, surgical recommendations. Requesting physician: Alessio Santos History of present illness: This is a 57-year-old gentleman who follows with Dr. Srini Hastings on an outpatient basis. 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 He denied any chest pain or discomfort. He was found to be in volume overload and anemic and was admitted for evaluation and treatment. He was also had acute kidney disease, dialysis catheter was placed, and he has undergone dialysis. An echocardiogram was completed demonstrating severe cardiomyopathy with an ejection fraction 30-35%. The patient denies any history of cardiac disease in the past. He was recommended to undergo heart catheterization which was completed yesterday and which demonstrated proximal left circumflex with a tight lesion in the range of 70-80%, mid circumflex with a lesion 90-99% and the diagonal branch of the LAD with a lesion 80-90%. The RCA is occluded in the midportion with collateral fill from the left side. Dr. Carbajal from cardiothoracic surgery was consulted regarding surgical revascularization recommendations. Review of Systems Previous was completed and was negative except as noted in the HPI. - Cardiovascular Reports shortness of breath - Respiratory Reports dyspnea Past Medical History Past Medical History: Coronary Artery Disease (CAD), Heart Failure, Hypertension , Renal Disease Additional Past Medical History / Comment(s): emphysema History of Any Multi-Drug Resistant Organisms: None Reported Additional Past Surgical History / Comment(s): 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 Past Anesthesia/Blood Transfusion Reactions: No Reported Reaction Past Psychological History: No Psychological Hx Reported Smoking Status: Current every day smoker Past Alcohol Use History: None Reported Past Drug Use History: None Reported Medications and Allergies Home Medications Medication Instructions Recorded Confirmed Type Allopurinol [Zyloprim] 200 mg PO DAILY 01/16/18 01/16/18 History Aspirin EC [Ecotrin Low Dose] 81 mg PO DAILY 01/16/18 01/16/18 History Calcitriol 0.5 mcg PO DIRECTED 01/16/18 01/16/18 History Carvedilol [Coreg] 25 mg PO AC-BID 01/16/18 01/16/18 History Citalopram Hydrobromide [CeleXA] 20 mg PO DAILY 01/16/18 01/16/18 History Ergocalciferol [Vitamin D2] 50,000 unit PO DIRECTED 01/16/18 01/16/18 History Furosemide [Lasix] 40 mg PO DAILY 01/16/18 01/16/18 History Levothyroxine Sodium [Synthroid] 75 mcg PO DAILY 01/16/18 01/16/18 History Magnesium Oxide [Mag-Ox] 400 mg PO DAILY 01/16/18 01/16/18 History Spironolactone [Aldactone] 25 mg PO BID 01/16/18 01/16/18 History amLODIPine [Norvasc] 10 mg PO DAILY 01/16/18 01/16/18 History hydrALAZINE HCL [Apresoline] 50 mg PO TID 01/16/18 01/16/18 History Allergies Allergy/AdvReac Type Severity Reaction Status Date / Time Penicillins Allergy Unknown Verified 01/16/18 22:13 Surgical - Exam Vital Signs Temp Pulse Resp BP Pulse Ox 97.1 F L 101 H 24 173/84 88 L 01/16/18 21:17 01/16/18 21:17 01/16/18 21:17 01/16/18 21:17 01/16/18 21:17 - General well developed, well nourished, no distress - Eyes PERRL, normal ocular movement - ENT no hearing loss - Neck no masses, no bruits, trachea midline - Respiratory Lungs sounds clear bilaterally. Respirations even, nonlabored. Currently on 2 L nasal cannula infection saturation 95%. - Cardiovascular S1, S2 present. Regular rate and rhythm, sinus rhythm on telemetry. Palpable peripheral pulses bilaterally. No edema present. No calf pain or tenderness noted. Right anterior chest wall dialysis catheter present. - Abdomen Abdomen: soft, non tender, bowel sounds - Genitourinary Deferred - Rectum Deferred - Integumentary no rash, no growths - Neurologic normal coordination, normal sensation - Musculoskeletal normal gait - Psychiatric oriented to time, oriented to person, oriented to place, speech is normal, memory intact Results - Labs 01/21/18 09:00 01/19/18 07:56 Abnormal Lab Results - Last 24 Hours (Table) 01/21/18 Range/Units 09:00 RBC 2.66 L (4.30-5.90) m/uL Hgb 8.2 L (13.0-17.5) gm/dL Hct 24.8 L (39.0-53.0) % RDW 16.2 H (11.5-15.5) % Lymphocytes # 0.6 L (1.0-4.8) k/uL - Imaging Additional studies: Heart catheterization films were reviewed between Dr. Carbajal and Dr. Santos. Assessment and Plan (1) Coronary artery disease Current Visit: Yes Status: Chronic Code(s): I25.10 - ATHSCL HEART DISEASE OF [place] CORONARY ARTERY W/O ANG PCTRS SNOMED Code(s): 59069874 (2) Acute on chronic kidney failure Current Visit: Yes Status: Acute Code(s): N17.9 - ACUTE KIDNEY FAILURE, UNSPECIFIED; N18.9 - CHRONIC KIDNEY DISEASE, UNSPECIFIED SNOMED Code(s): 018310011 (3) Hypertension Current Visit: Yes Status: Chronic Code(s): I10 - ESSENTIAL (PRIMARY) HYPERTENSION SNOMED Code(s): 33340249 (4) Tobacco dependence Current Visit: Yes Status: Chronic Code(s): F17.200 - NICOTINE DEPENDENCE, UNSPECIFIED, UNCOMPLICATED SNOMED Code(s): 08304025 (5) Emphysema of lung Current Visit: Yes Status: Chronic Code(s): J43.9 - EMPHYSEMA, UNSPECIFIED SNOMED Code(s): 89488978 Plan: The patient was seen and examined. Chart/diagnostics reviewed. Heart catheterization films were reviewed between it Dr. Carbajal and Dr. Santos. This patient has significant risk factors including sedentary lifestyle, recent dialysis, and chronic tobacco dependence. At this time we feel the patient would benefit from stenting and risk factor modification. This was discussed with Dr. Santos. Thank you Dr. Santos for this consult. These call us with any questions. Time with Patient: Greater than 30
--- NOTE | 2018-01-22 13:51 | P.PN ---
Subjective Progress Note Date: 01/22/18 Principal diagnosis: Acute hypoxic respiratory failure secondary to acute fluid volume overload secondary to acute renal failure. This a very pleasant 57-year-old gentleman who follows with Dr. Hastings as his primary care physician. He apparently hasn't seen him in over 2 years. 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 He has a 40 year pack per day smoking history. He presented to the emergency room yesterday at [facility] with complaints of increasing shortness of breath, cough and congestion. He was placed on BiPAP and subsequently transferred here for further treatment. Chest x-ray revealed evidence of fluid volume overload and pulmonary edema. Initial labs revealed a hemoglobin of 6.9, creatinine 7.80, bicarbonate 13, troponin 0.231, proBNP 49, 400. He was admitted to the selective care unit. He is seen there today in consultation. Currently on BiPAP 06/19 at 45% FiO2. He is awake and alert in mild respiratory distress. Labs today revealed RBC 4.4, hemoglobin 6.0. He is receiving his first unit of packed red blood cells. He is currently on a Lasix drip at 10 mg per hour. Nitroglycerin drip at 5 mcg/m. He is receiving sodium bicarb orally. He's been initiated on bronchodilators as needed. Nephrology is on the case. Patient is seen today 01/18/2018 in follow-up on the selective care unit. He is awake and alert in no acute distress. He is breathing quite a bit easier today as compared to yesterday. He did utilize the BiPAP throughout the evening and is currently on 4 L/m per nasal cannula to maintain O2 saturations in the 90s. He did undergo vascular access catheter and is currently receiving hemodialysis. He remains on the Lasix drip at 10 mg per hour. He is continued on his COPD exacerbation medications as well. Progress note dated 01/19/2018 This is a 57-year-old white male who presented with acute hypoxemic respiratory failure secondary to fluid overload/pulmonary edema from acute renal fire, anemia, and COPD exacerbation. The patient's chest x-ray slightly improved. Volume status is improved. He didn't get dialysis yesterday. Overall he is feeling better. 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 Yesterday we spent a great deal of time counseling him about the importance of smoking cessation. We did this in front of his daughter. The patient denies any cough or phlegm production. No fever chills. No chest pain or chest discomfort. No nausea vomiting or diarrhea. Labs today show a white count of 4.1 hemoglobin 7.8 hematocrit 23.7 and a platelet count that is normal. Sodium potassium normal chloride 94 CO2 28 BUN and creatinine were 55 and 4.66, compared to 69 and 7.80 on admission. N-terminal pro BNP was 49,400 on the fifth. Chest x-ray shows some mild fluid overload and small pleural effusions. On 01/20/2018 patient seen in follow-up on selective care unit. He is having his third hemodialysis treatment today, his breathing is easier, lung sounds are positive for mild bibasilar crackles, no rhonchi or wheezes noted. Some prolongation of expiratory phase. Overall no acute distress. He is resting comfortably in bed. He states that she is still smoking up to 2 packs a day, and most likely will be smoking again after discharge. Room air pulse ox is 94% , she is afebrile, vital signs are stable, denies any chest pain, he is alert, awake, oriented 3. No new labs were chest x-rays today, other than troponin which is trending down and is down to 3.370. Latest chest x-ray from [address] Chinchilla and showed COPD, cardiomegaly, mild vascular congestion, and small bilateral effusions. No acute events overnight, patient was advised to get up and sit up in the chair and ambulate with assistance after the hemodialysis. The patient is seen today 01/21/2018 in follow-up on the selective care unit. He is awake and alert in no acute distress. He denies any worsening shortness of breath, cough or congestion. Maintaining good O2 saturations in the upper 90s on room air. He's been afebrile. White count 6.1. Hemoglobin 8.2. The plan is for hemodialysis on Saturday schedule. He did undergo cardiac catheterization this morning which revealed a calcified right and left coronary systems. Severe triple-vessel coronary artery disease. Total occlusion of the RCA in the midportion been filled by collaterals from the left. Critical disease involving the mid left circumflex, critical disease involving the proximal LAD. Cardiothoracic surgeons are being consulted. The patient is seen again today 01/22/2018 in follow-up on the selective care unit. He is currently sitting up in bed. He is awake and alert in no acute distress. He denies any worsening shortness of breath, cough or congestion. No chest pain or palpitations. He has been seen by cardiothoracic surgeons and the plan is for attempting stent placement versus coronary artery bypass grafting. Objective - Vital Signs Vital signs: Vital Signs Temp 97.4 F L 01/22/18 11:53 Pulse 60 01/22/18 12:05 Resp 16 01/22/18 11:53 BP 146/72 01/22/18 11:53 Pulse Ox 95 01/22/18 11:53 Intake & Output 01/21/18 01/22/18 01/22/18 18:59 06:59 18:59 Intake Total 100 260 Output Total 600 Balance 100 -600 260 Weight 84.7 kg Intake: IV 100 20 Invasive Line 4 20 Oral 240 Output: Urine 600 Other: Voiding Method Urinal Toilet Urinal # Voids 0 # Bowel Movements 1 - Exam GENERAL EXAM: Alert, fairly comfortable in mild respiratory distress. HEAD: Normocephalic. EYES: Normal reaction of pupils, equal size. NOSE: Clear with pink turbinates. THROAT: No erythema or exudates. NECK: No masses, no JVD. CHEST: No chest wall deformity. LUNGS: Equal air entry with crackles in the bilateral posterior bases. Faint end expiratory wheeze. Diminished. CVS: S1 and S2 normal with no audible murmur, regular rhythm. ABDOMEN: No hepatosplenomegaly, normal bowel sounds, no guarding or rigidity. SPINE: No scoliosis or deformity SKIN: No rashes CENTRAL NERVOUS SYSTEM: No focal deficits, tone is normal in all 4 extremities. EXTREMITIES: Left upper extremity amputation. There is no peripheral edema. No clubbing, no cyanosis. Peripheral pulses are intact. - Labs CBC & Chem 7: 01/21/18 09:00 01/19/18 07:56 Assessment and Plan Assessment: Impression: #1 Acute hypoxic respiratory failure secondary to fluid volume overload/ pulmonary edema secondary to acute renal failure, anemia, suspected chronic obstructive pulmonary disease exacerbation. #2 Acute kidney injury in a patient with a known history of chronic kidney disease. #3 Acute non-ST segment elevation myocardial infarction with ischemic cardiomyopathy and ejection fraction 30-35%, found to have severe triple-vessel disease and cardiac catheterization today.. #4 Hypertension, better controlled. #5 Chronic and ongoing tobacco dependence. #6 Hypothyroidism. #7 History of left upper extremity amputation. #8 History of cardiac emboli. #9 Acute anemia suspect secondary to chronic kidney disease. No evidence of active bleeding. Plan: The patient was seen and evaluated by Dr. Chinchilla. The patient is improved from the pulmonary standpoint. We'll continue with his current medications. He is on oral prednisone now. He is again educated regarding the importance of complete smoking cessation. NicoDerm patch applied. Hemodialysis Saturday. The plan is for probable stent placement versus CABG. We will continue to follow and make further recommendations based on his clinical status. I, the cosigning physician, performed a history & physical examination of the patient. Lungs sounds with crackles in the bilateral posterior bases. Diminished.. Maintaining good O2 saturations in the 90s on room air. I discussed the assessment and plan of care with my nurse practitioner, Elizabeth Nevarez. I attest to the above progress note as dictated by her.
--- NOTE | 2018-01-22 14:11 | PN ---
PROGRESS NOTE Patient is seen for followup for end-stage renal disease. He is currently maintained on hemodialysis. The patient was evaluated by Cardiothoracic Surgery. There are no plans for surgery. However, patient will be going for coronary angioplasty and stenting. EXAMINATION: Today blood pressure is 146/72, heart rate 60 per minute. He is afebrile. Examination of the heart S1, S2. Examination of the lungs bilateral breath sounds are heard. Abdomen is soft, nontender. Examination lower extremity shows no evidence of edema. Patient has left upper extremity below the elbow amputation. LABS: From January 19, show potassium of 4.1. ASSESSMENT: 1. End-stage renal disease, on hemodialysis. We will maintain patient on a Saturday, Saturday, Saturday schedule. He will be going to the [facility]. 2. Coronary artery disease status post myocardial infarction, status post cardiac catheterization with no plans for coronary artery bypass surgery. The patient will have a coronary artery stenting by Dr. Santos possibly tomorrow. He has significant underlying coronary artery disease. 3. Anemia of chronic disease with iron deficiency, maintained on IV iron and Aranesp. 4. Hypertension, currently controlled. Maintain MADELYN inhibitors on board. PLAN: Hemodialysis today and continue current medications. We will dialyze the patient after cardiac catheterization. MMODL / IJN: [id number] /
[2018-01-22] MEDS ORDERED: HEPARIN SODIUM,PORCINE 5,000 UNIT/ML 1 ML VIAL ONE (17:30)
[2018-01-22] MEDS: ALPRAZolam 0.25 MG TAB PO PRN (19:44)
[2018-01-22] MEDS: ATORVASTATIN 80 MG TAB PO SCH (19:45)
--- NOTE | 2018-01-22 22:50 | PN ---
PROGRESS NOTE DATE OF SERVICE: 01/22/2018. PRESENTING COMPLAINT: "I'm tired." INTERVAL HISTORY: This patient presented with acute pulmonary edema, acute CA, acute renal failure started on dialysis and COPD exacerbation. The patient was seen by Cardiothoracic Surgery today. Patient does not want surgery. Dr. Santos is now going to do coronary intervention. The patient getting dialyzed today. Breathing continues to improve. REVIEW OF SYSTEMS: Done for constitutional, cardiovascular, GI, pulmonary; relevant findings as above. CURRENT MEDICATIONS: Reviewed. EXAMINATION: Temperature 97.8, pulse 68, respirations 16, blood pressure 150/64, pulse ox 95% on room air. GENERAL APPEARANCE: Lying in bed, more comfortable. EYES: Pupils equal. Conjunctivae pale. HEENT: External nose and ears normal. Oral cavity normal. NECK: JVD not raised. Mass not palpable. RESPIRATORY: Effort normal. LUNGS: Diminished breath sounds. CARDIOVASCULAR: First and second sounds normal. No edema. ABDOMEN: Soft, nontender. Liver and spleen not palpable. PSYCHIATRY: Alert and oriented x3. Mood and affect were normal. INVESTIGATIONS: No blood work from today. ASSESSMENT: 1. Acute renal failure, probably acute tubular necrosis progressed to end-stage kidney disease. Now patient is on hemodialysis. 2. Severe metabolic acidosis from renal failure. 3. Normocytic anemia secondary to chronic kidney disease. 4. Acute chronic obstructive pulmonary disease exacerbation in a current smoker. 5. Chronic nicotine dependence. Patient is a cigarette smoker. 6. Secondary hyperparathyroidism/mineral bone disease of chronic kidney disease. 7. Acute congestive heart failure exacerbation from systolic dysfunction, ejection fraction 30%-35% from underlying coronary artery disease, now improved. 8. Acute non-Q-wave myocardial infarction. 9. Triple-vessel coronary artery disease per cardiac catheterization. Patient does not want surgery, will have coronary intervention. PLAN: Care was discussed with the patient. No new issues. Continue current medication and treatment plan and follow. MMODL / IJN: [id number] /
[2018-01-23] MEDS: CARVEDILOL 12.5 MG TAB PO SCH ×2 (06:22→16:32)
[2018-01-23] MEDS: LEVOTHYROXINE 75 MCG TAB PO SCH (06:22)
[2018-01-23] MEDS: NICOTINE 21MG/24HR PATCH TRANSDERM SCH (06:22)
[2018-01-23] MEDS: ALLOPURINOL 100 MG TAB PO SCH (07:45)
[2018-01-23] MEDS: LISINOPRIL 20 MG TAB PO SCH (07:46)
[2018-01-23] MEDS: FAMOTIDINE 20 MG TAB PO SCH (07:46)
[2018-01-23] MEDS: MAGNESIUM OXIDE 400 MG TAB PO SCH (07:46)
[2018-01-23] MEDS: ASPIRIN 81 MG PO SCH (07:46)
[2018-01-23] MEDS: CITALOPRAM HYDROBROMIDE 20 MG TAB PO SCH (07:46)
[2018-01-23] MEDS: predniSONE 20 MG TAB PO SCH (07:47)
[2018-01-23] MEDS: BUDESONIDE 1 MG/2 ML NEBU INHALATION SCH ×2 (08:13→19:59)
[2018-01-23] MEDS: IPRATROPIUM-ALBUTEROL 3 ML NEB INHALATION SCH ×4 (08:13→19:59)
[2018-01-23] MEDS: FORMOTEROL FUMARATE 20 MCG/2 ML NEBU INHALATION SCH ×2 (08:13→19:59)
--- NOTE | 2018-01-23 08:57 | P.PN ---
Subjective Progress Note Date: 01/23/18 Principal diagnosis: Severe cardiomyopathy unknown if is ischemic or nonischemic This is a pleasant 57-year-old gentleman with a past medical history significant for hypertension, stage IV chronic kidney disease, as well as significant history of smoking, presented to the emergency room complaining of progressive dyspnea. The patient was in his usual state of health but about 3-4 days before he presented to the hospital when he started experiencing progressive exertional dyspnea associated with orthopnea and also PND. He did not report any chest pain or chest discomfort, dizziness or lightheadedness, or syncope. When the patient presented to the ER he was found to be in volume overload. He also was found to be severely anemic with a hemoglobin around 6 and receives blood. Also the creatinine was around 5 and he was in acute on chronic renal failure. The patient underwent a dialysis catheter and he underwent dialysis twice. Apparently he is known to have stage IV chronic kidney disease but he was noncompliant with his appointments. An echocardiogram was performed and revealed severe cardiomyopathy with an EF around 35%. The patient is not aware of any prior cardiac history and never seen a hardware technician in the past. The EKG showed sinus rhythm with diffuse nonspecific ST and T wave abnormalities quite concerning for ischemia. The chest x-ray showed findings consistent with CHF. The first set of troponin came in to be mildly elevated but the second set of troponin came in to be around 5. The patient underwent a heart catheterization yesterday and that revealed severe triple-vessel CAD. He was seen and evaluated by cardiothoracic surgeons for possible coronary artery bypass grafting and the patient does not want surgery. On follow-up with the patient today, he continues to be asymptomatic. The blood pressure still not well-controlled and I am going to increase the dose of lisinopril. Beside that he is on aspirin and statin and Aldactone. We will plan for a PCI in the next 24 hours. Objective - Vital Signs Vital signs: Vital Signs Temp 97.6 F 01/23/18 07:40 Pulse 68 01/23/18 08:38 Resp 16 01/23/18 07:57 BP 150/67 01/23/18 07:40 Pulse Ox 96 01/23/18 08:16 Intake & Output 01/22/18 01/23/18 01/23/18 18:59 06:59 18:59 Intake Total 620 120 Balance 620 120 Weight 83.5 kg Intake: IV 120 Invasive Line 4 20 Sodium Ferric Gluconat- 100 Sucrose 125 mg In Sodium Chloride 0.9% 100 ml @ 100 mls/hr IVPB DAILY [facility] Rx#:[id number] Oral 500 120 Other: Voiding Method Toilet Toilet Toilet Urinal Urinal Urinal # Voids 1 1 # Bowel Movements 1 - Constitutional General appearance: Present: no acute distress - Respiratory Respiratory: bilateral: CTA - Cardiovascular Rhythm: regular Heart sounds: normal: S1, S2 - Labs CBC & Chem 7: 01/21/18 09:00 01/19/18 07:56 Assessment and Plan Assessment: Assessment #1 congestive heart failure exacerbation secondary to systolic dysfunction Acute on chronic #2 severe cardiomyopathy and known if it's due to ischemic or nonischemic at this point #3 acute non-ST deviation myocardial infarction #4 hypertension #5 significant history of smoking Plan #1 continue the current medical treatment which is maximized which include aspirin, Coreg, lisinopril, and Aldactone #2 the patient was seen and evaluated by cardiothoracic surgeon and he does not want surgery to be done. #3 I will schedule the patient to undergo a PCI in the next 24-48 hours.
[2018-01-23] MEDS: SPIRONOLACTONE 25 MG TAB PO SCH (09:25)
[2018-01-23] MEDS: ENOXAPARIN 30 MG/0.3 ML SYRINGE SQ SCH (09:27)
[2018-01-23 11:19] LABS: Calcium 8.3 mg/dL (8.4-10.2); Potassium 3.3 mmol/L (3.5-5.1)
--- NOTE | 2018-01-23 12:25 | P.PN ---
Subjective Progress Note Date: 01/23/18 Principal diagnosis: Acute hypoxic respiratory failure secondary to acute fluid volume overload secondary to acute renal failure. This a very pleasant 57-year-old gentleman who follows with Dr. Hastings as his primary care physician. He apparently hasn't seen him in over 2 years. 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 He has a 40 year pack per day smoking history. He presented to the emergency room yesterday at [facility] with complaints of increasing shortness of breath, cough and congestion. He was placed on BiPAP and subsequently transferred here for further treatment. Chest x-ray revealed evidence of fluid volume overload and pulmonary edema. Initial labs revealed a hemoglobin of 6.9, creatinine 7.80, bicarbonate 13, troponin 0.231, proBNP 49, 400. He was admitted to the selective care unit. He is seen there today in consultation. Currently on BiPAP 06/19 at 45% FiO2. He is awake and alert in mild respiratory distress. Labs today revealed RBC 4.4, hemoglobin 6.0. He is receiving his first unit of packed red blood cells. He is currently on a Lasix drip at 10 mg per hour. Nitroglycerin drip at 5 mcg/m. He is receiving sodium bicarb orally. He's been initiated on bronchodilators as needed. Nephrology is on the case. Patient is seen today 01/18/2018 in follow-up on the selective care unit. He is awake and alert in no acute distress. He is breathing quite a bit easier today as compared to yesterday. He did utilize the BiPAP throughout the evening and is currently on 4 L/m per nasal cannula to maintain O2 saturations in the 90s. He did undergo vascular access catheter and is currently receiving hemodialysis. He remains on the Lasix drip at 10 mg per hour. He is continued on his COPD exacerbation medications as well. Progress note dated 01/19/2018 This is a 57-year-old white male who presented with acute hypoxemic respiratory failure secondary to fluid overload/pulmonary edema from acute renal fire, anemia, and COPD exacerbation. The patient's chest x-ray slightly improved. Volume status is improved. He didn't get dialysis yesterday. Overall he is feeling better. 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 Yesterday we spent a great deal of time counseling him about the importance of smoking cessation. We did this in front of his daughter. The patient denies any cough or phlegm production. No fever chills. No chest pain or chest discomfort. No nausea vomiting or diarrhea. Labs today show a white count of 4.1 hemoglobin 7.8 hematocrit 23.7 and a platelet count that is normal. Sodium potassium normal chloride 94 CO2 28 BUN and creatinine were 55 and 4.66, compared to 69 and 7.80 on admission. N-terminal pro BNP was 49,400 on the fifth. Chest x-ray shows some mild fluid overload and small pleural effusions. On 01/20/2018 patient seen in follow-up on selective care unit. He is having his third hemodialysis treatment today, his breathing is easier, lung sounds are positive for mild bibasilar crackles, no rhonchi or wheezes noted. Some prolongation of expiratory phase. Overall no acute distress. He is resting comfortably in bed. He states that she is still smoking up to 2 packs a day, and most likely will be smoking again after discharge. Room air pulse ox is 94% , she is afebrile, vital signs are stable, denies any chest pain, he is alert, awake, oriented 3. No new labs were chest x-rays today, other than troponin which is trending down and is down to 3.370. Latest chest x-ray from [address] Chinchilla and showed COPD, cardiomegaly, mild vascular congestion, and small bilateral effusions. No acute events overnight, patient was advised to get up and sit up in the chair and ambulate with assistance after the hemodialysis. The patient is seen today 01/21/2018 in follow-up on the selective care unit. He is awake and alert in no acute distress. He denies any worsening shortness of breath, cough or congestion. Maintaining good O2 saturations in the upper 90s on room air. He's been afebrile. White count 6.1. Hemoglobin 8.2. The plan is for hemodialysis on Saturday schedule. He did undergo cardiac catheterization this morning which revealed a calcified right and left coronary systems. Severe triple-vessel coronary artery disease. Total occlusion of the RCA in the midportion been filled by collaterals from the left. Critical disease involving the mid left circumflex, critical disease involving the proximal LAD. Cardiothoracic surgeons are being consulted. The patient is seen again today 01/22/2018 in follow-up on the selective care unit. He is currently sitting up in bed. He is awake and alert in no acute distress. He denies any worsening shortness of breath, cough or congestion. No chest pain or palpitations. He has been seen by cardiothoracic surgeons and the plan is for attempting stent placement versus coronary artery bypass grafting. The patient is seen again today 01/23/2018 in follow-up on the selective care unit. He is resting quite comfortably in bed. He is awake and alert in no distress. He denies any chest pain, palpitations lightheadedness or dizziness. No shortness of breath, cough or congestion. Potassium 3.3. Creatinine 3.53. The plan is for PCI with Dr. Santos possibly in the a.m. Objective - Vital Signs Vital signs: Vital Signs Temp 97.6 F 01/23/18 11:42 Pulse 60 01/23/18 11:46 Resp 16 01/23/18 11:46 BP 137/67 01/23/18 11:42 Pulse Ox 98 01/23/18 11:42 Intake & Output 01/22/18 01/23/18 01/23/18 18:59 06:59 18:59 Intake Total 620 120 610 Balance 620 120 610 Weight 83.5 kg Intake: IV 120 10 Invasive Line 4 20 10 Sodium Ferric Gluconat- 100 Sucrose 125 mg In Sodium Chloride 0.9% 100 ml @ 100 mls/hr IVPB DAILY [facility] Rx#:[id number] Oral 500 120 600 Other: Voiding Method Toilet Toilet Toilet Urinal Urinal Urinal # Voids 1 1 # Bowel Movements 1 - Exam GENERAL EXAM: Alert, fairly comfortable in mild respiratory distress. HEAD: Normocephalic. EYES: Normal reaction of pupils, equal size. NOSE: Clear with pink turbinates. THROAT: No erythema or exudates. NECK: No masses, no JVD. CHEST: No chest wall deformity. LUNGS: Equal air entry with crackles in the bilateral posterior bases. Faint end expiratory wheeze. Diminished. CVS: S1 and S2 normal with no audible murmur, regular rhythm. ABDOMEN: No hepatosplenomegaly, normal bowel sounds, no guarding or rigidity. SPINE: No scoliosis or deformity SKIN: No rashes CENTRAL NERVOUS SYSTEM: No focal deficits, tone is normal in all 4 extremities. EXTREMITIES: Left upper extremity amputation. There is no peripheral edema. No clubbing, no cyanosis. Peripheral pulses are intact. - Labs CBC & Chem 7: 01/21/18 09:00 01/23/18 10:45 Labs: Abnormal Lab Results - Last 24 Hours (Table) 01/23/18 Range/Units 10:45 Potassium 3.3 L (3.5-5.1) mmol/L BUN 39 H (9-20) mg/dL Creatinine 3.53 H (0.66-1.25) mg/dL Glucose 125 H (74-99) mg/dL Calcium 8.3 L (8.4-10.2) mg/dL Assessment and Plan Assessment: Impression: #1 Acute hypoxic respiratory failure secondary to fluid volume overload/ pulmonary edema secondary to acute renal failure, anemia, suspected chronic obstructive pulmonary disease exacerbation. #2 Acute kidney injury in a patient with a known history of chronic kidney disease. #3 Acute non-ST segment elevation myocardial infarction with ischemic cardiomyopathy and ejection fraction 30-35%, found to have severe triple-vessel disease and cardiac catheterization today.. #4 Hypertension, better controlled. #5 Chronic and ongoing tobacco dependence. #6 Hypothyroidism. #7 History of left upper extremity amputation. #8 History of cardiac emboli. #9 Acute anemia suspect secondary to chronic kidney disease. No evidence of active bleeding. Plan: The patient was seen and evaluated by Dr. Chinchilla. The patient is stable from the pulmonary standpoint. We'll continue with his current medications. He is on oral prednisone now. He is again educated regarding the importance of complete smoking cessation. NicoDerm patch applied. Hemodialysis Saturday. The plan is for probable stent placement with Dr. Santos in the a.m. We will continue to follow and make further recommendations based on his clinical status. I, the cosigning physician, performed a history & physical examination of the patient. Lungs sounds are clear. Diminished. Maintaining good O2 saturations in the 90s on room air. I discussed the assessment and plan of care with my nurse practitioner, Elizabeth Nevarez. I attest to the above progress note as dictated by her.
[2018-01-23] MEDS ORDERED: POTASSIUM CHLORIDE ER 20 MEQ TAB.ER PO ONE (16:00)
[2018-01-23] MEDS: ALPRAZolam 0.25 MG TAB PO PRN (16:01)
--- NOTE | 2018-01-23 16:42 | PN ---
PROGRESS NOTE Patient is seen for followup for end-stage renal disease. Patient will be most likely having his cardiac catheterization tomorrow. He is currently comfortable. He denies any chest pain. Blood pressure is 106/45, heart rate 77 per minute. Patient is afebrile. EXAMINATION OF THE HEART: S1, S2. EXAMINATION OF LUNGS: Bilateral breath sounds are heard. ABDOMEN: Soft, non-tender. Examination of lower extremities shows no significant edema. EXCEL EXPERT exam is grossly intact. Labs show sodium 137, potassium 3.3, BUN 39, serum creatinine 3.53, hemoglobin 8.2 g/dL. ASSESSMENT: 1. End-stage renal disease, started on hemodialysis this admission. Will maintain patient on a Saturday, Saturday, Saturday schedule. We will dialyze him tomorrow after cardiac catheterization. 2. Severe coronary artery disease, scheduled for cardiac catheterization and coronary artery stenting tomorrow with Dr. Santos. 3. Cardiomyopathy; ejection fraction 30% to 35%. 4. Congestive heart failure, acute on top of chronic, mainly systolic, currently improved. 5. Hypertension. Blood pressure has improved. Patient is maintained on MADELYN inhibitors and Aldactone. 6. Anemia with evidence of iron deficiency, status post IV iron. Also maintained on Aranesp. No active bleeding noted. PLAN: Continue with Aranesp. Replace potassium. Hemodialysis in a.m. tomorrow after cardiac catheterization. Patient will be going to the [facility] on a Saturday, Saturday, Saturday schedule. MMODL / IJN: [id number] /
[2018-01-23] MEDS: ATORVASTATIN 80 MG TAB PO SCH (19:41)
--- NOTE | 2018-01-23 20:42 | PN ---
PROGRESS NOTE DATE OF SERVICE: 01/23/2018 PRESENTING COMPLAINT: Tired. INTERVAL HISTORY: Patient presented with acute pulmonary edema, acute GA, acute renal failure on chronic kidney disease, now started on hemodialysis, and COPD exacerbation. Patient is awaiting cardiac catheterization. Lying in bed. REVIEW OF SYSTEMS: Done for constitutional, cardiovascular, GI, pulmonary; relevant findings as above. CURRENT MEDICATIONS: Reviewed. PHYSICAL EXAMINATION: Temperature 97.7, pulse 56, respiration 16, blood pressure 139/67, pulse ox 93% on room air. GENERAL APPEARANCE: Lying in bed, awake. EYES: Pupils equal. Conjunctivae pale. HEENT: External appearance of nose and ears normal. Oral cavity normal. NECK: JVD not raised. Mass not palpable. RESPIRATORY: Effort normal. LUNGS: Decreased breath sounds. CARDIOVASCULAR: First and second sounds normal. No edema. ABDOMEN: Soft, non-tender. Liver and spleen not palpable. PSYCHIATRY: Alert and oriented x3. Mood and affect normal. INVESTIGATIONS: Potassium 3.3. ASSESSMENT: 1. Acute renal failure on top of chronic kidney disease progressing to end-stage kidney disease. Patient now on hemodialysis. 2. Severe metabolic acidosis from renal failure. 3. Normocytic anemia secondary to chronic kidney disease. 4. Acute chronic obstructive pulmonary disease exacerbation in a current smoker. 5. Chronic nicotine dependence. Patient is a cigarette smoker. 6. 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 7. Acute congestive heart failure exacerbation from systolic dysfunction, ejection fraction 30% to 35%, from underlying coronary artery disease. 8. Acute non-Q-wave myocardial infarction. 9. Triple-vessel coronary artery disease per cardiac catheterization. PLAN: Continue current medication and treatment plan. Awaiting cardiac catheterization by Dr. Santos. MMROXIEL / SRINIVASN: [id number] /
[2018-01-24 05:46] LABS: Glucose,Whole Blood 94 mg/dL (75-99)
[2018-01-24] MEDS: CARVEDILOL 12.5 MG TAB PO SCH ×2 (06:27→17:26)
[2018-01-24] MEDS: LISINOPRIL 10 MG TAB PO SCH (06:27)
[2018-01-24] MEDS: ALLOPURINOL 100 MG TAB PO SCH (06:27)
[2018-01-24] MEDS: LEVOTHYROXINE 75 MCG TAB PO SCH (06:27)
[2018-01-24] MEDS: ALPRAZolam 0.25 MG TAB PO PRN (06:27)
[2018-01-24] MEDS: MAGNESIUM OXIDE 400 MG TAB PO SCH (06:27)
[2018-01-24] MEDS: NICOTINE 21MG/24HR PATCH TRANSDERM SCH (06:28)
[2018-01-24] MEDS: ENOXAPARIN 30 MG/0.3 ML SYRINGE SQ SCH ×2 (06:28→06:32)
[2018-01-24] MEDS: FAMOTIDINE 20 MG TAB PO SCH (06:28)
[2018-01-24] MEDS: predniSONE 20 MG TAB PO SCH ×2 (06:28→06:29)
[2018-01-24] MEDS: CITALOPRAM HYDROBROMIDE 20 MG TAB PO SCH (06:28)
[2018-01-24] MEDS: ASPIRIN 81 MG PO SCH (06:28)
[2018-01-24 06:38] LABS: HCT 26.6 % (39.0-53.0); HGB 8.4 gm/dL (13.0-17.5); MCH 29.9 pg (25.0-35.0); MCHC 31.4 g/dL (31.0-37.0); MCV 95.3 fL (80.0-100.0); Mean Platelet Volume 7.6; Platelet Count 214 k/uL (150-450); RBC 2.79 m/uL (4.30-5.90); WBC 9.2 k/uL (3.8-10.6)
[2018-01-24 06:49] LABS: Calcium 8.9 mg/dL (8.4-10.2); Potassium 3.3 mmol/L (3.5-5.1)
[2018-01-24] MEDS: IPRATROPIUM-ALBUTEROL 3 ML NEB INHALATION SCH ×4 (07:29→19:35)
[2018-01-24] MEDS: FORMOTEROL FUMARATE 20 MCG/2 ML NEBU INHALATION SCH ×2 (07:30→19:35)
[2018-01-24] MEDS: BUDESONIDE 1 MG/2 ML NEBU INHALATION SCH ×2 (07:30→19:35)
[2018-01-24] MEDS ORDERED: POTASSIUM CHLORIDE ER 20 MEQ TAB.ER PO STA (07:31)
--- NOTE | 2018-01-24 08:05 | P.PN ---
Subjective Progress Note Date: 01/24/18 Principal diagnosis: Severe cardiomyopathy unknown if is ischemic or nonischemic This is a pleasant 57-year-old gentleman with a past medical history significant for hypertension, stage IV chronic kidney disease, as well as significant history of smoking, presented to the emergency room complaining of progressive dyspnea. The patient was in his usual state of health but about 3-4 days before he presented to the hospital when he started experiencing progressive exertional dyspnea associated with orthopnea and also PND. He did not report any chest pain or chest discomfort, dizziness or lightheadedness, or syncope. When the patient presented to the ER he was found to be in volume overload. He also was found to be severely anemic with a hemoglobin around 6 and receives blood. Also the creatinine was around 5 and he was in acute on chronic renal failure. The patient underwent a dialysis catheter and he underwent dialysis twice. Apparently he is known to have stage IV chronic kidney disease but he was noncompliant with his appointments. An echocardiogram was performed and revealed severe cardiomyopathy with an EF around 35%. The patient is not aware of any prior cardiac history and never seen a rehabilitation director in the past. The EKG showed sinus rhythm with diffuse nonspecific ST and T wave abnormalities quite concerning for ischemia. The chest x-ray showed findings consistent with CHF. The first set of troponin came in to be mildly elevated but the second set of troponin came in to be around 5. The patient underwent a heart catheterization yesterday and that revealed severe triple-vessel CAD. He was seen and evaluated by cardiothoracic surgeons for possible coronary artery bypass grafting and the patient does not want surgery. I'll follow-up with him today, he denies having any chest pain or chest discomfort. He has been having diarrhea throughout the night. The blood pressure and heart rate overall seems to be under good control. He continues to be on aspirin, statin, and beta landy and MADELYN inhibitor. Objective - Vital Signs Vital signs: Vital Signs Temp 96.8 F L 01/24/18 00:00 Pulse 72 01/24/18 07:50 Resp 16 01/24/18 04:00 BP 147/71 01/24/18 04:00 Pulse Ox 96 01/24/18 04:00 Intake & Output 01/23/18 01/24/18 01/24/18 18:59 06:59 18:59 Intake Total 1450 Output Total 500 Balance 950 Weight 83.5 kg 82 kg Intake: IV 10 Invasive Line 4 10 Oral 1440 Output: Urine 500 Other: Voiding Method Toilet Urinal # Voids 2 1 - Labs CBC & Chem 7: 01/24/18 06:22 01/24/18 06:22 Labs: Abnormal Lab Results - Last 24 Hours (Table) 01/23/18 01/24/18 01/24/18 Range/Units 10:45 06:22 06:22 RBC 2.79 L (4.30-5.90) m/uL Hgb 8.4 L (13.0-17.5) gm/dL Hct 26.6 L (39.0-53.0) % RDW 16.0 H (11.5-15.5) % Sodium 134 L (137-145) mmol/L Potassium 3.3 L 3.3 L (3.5-5.1) mmol/L BUN 39 H 59 H (9-20) mg/dL Creatinine 3.53 H 4.80 H (0.66-1.25) mg/dL Glucose 125 H (74-99) mg/dL Calcium 8.3 L (8.4-10.2) mg/dL Assessment and Plan Assessment: Assessment #1 congestive heart failure exacerbation secondary to systolic dysfunction Acute on chronic #2 severe cardiomyopathy and known if it's due to ischemic or nonischemic at this point #3 acute non-ST deviation myocardial infarction #4 hypertension #5 significant history of smoking Plan #1 continue the current medical treatment which is maximized which include aspirin, Coreg, lisinopril, and Aldactone #2 the patient was seen and evaluated by cardiothoracic surgeon and he does not want surgery to be done. #3 I will schedule the patient to undergo a PCI in the next 24-48 hours.
[2018-01-24] MEDS: LOPERAMIDE 2 MG CAP PO PRN ×3 (08:10→20:25)
[2018-01-24] MEDS: DARBEPOETIN ALFA 40 MCG/0.4 ML SYRINGE SQ SCH (09:37)
[2018-01-24] MEDS: SPIRONOLACTONE 25 MG TAB PO SCH (09:39)
--- NOTE | 2018-01-24 12:40 | PN ---
PROGRESS NOTE Patient is seen for followup for end-stage renal disease. He was scheduled for cardiac cath; however, patient has been having diarrhea. Therefore, the cath is canceled and it will be done as outpatient. PHYSICAL EXAMINATION: Today, patient is comfortable. Blood pressure was elevated at 162/76 previously; however, he had been better at 147/71. Heart rate 66 per minute. Patient is afebrile. Examination of the heart S1, S2. Examination of the lungs, bilateral breath sounds are heard. Abdomen is soft, nontender. Examination of the lower extremities shows no evidence of edema. HAZARDOUS WASTE MANAGEMENT SPECIALIST exam is grossly intact. 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 LABS: Show sodium 134, potassium 3.3, BUN 59, serum creatinine 4.8, hemoglobin 8.4 g/dL. ASSESSMENT: 1. End-stage renal disease, started on hemodialysis this admission. Patient will be going to [place] to be 2 units on a Saturday, Saturday, Saturday schedule. He will be dialyzed today. 2. Severe coronary artery disease, status post cardiac catheterization, not a surgical candidate. Patient is scheduled for angioplasty and coronary stenting today; however, that was canceled secondary to diarrhea. 3. Hypokalemia associated with GI fluid loss. Will replace. 4. Diarrhea, currently maintained on Imodium. Patient is not on any antibiotics. I will discontinue the magnesium for now because of the diarrhea. We will plan to dialyze the patient today. MMROXIEL / SRINIVASN: [id number] /
--- NOTE | 2018-01-24 12:44 | US ---
EXAMINATION TYPE: US duplex arterial venous landeros DATE OF EXAM: 01/24/2018 COMPARISON: NONE CLINICAL HISTORY: Per Dr. Holt, check femoral arteries in groin pre heart cath. Patient has bilatera l groin scars and stated that his femoral arteries were used in a surgery in his arm. RIGHT: Calcified vessel, EIA and OPHTHALMOLOGY SURGICAL TECHNICIAN appear patient, proximal Femoral artery appears occluded. LEFT: Calcified vessel, appears patent from EIA to femoral artery mid. IMPRESSION: 1. Occlusion, likely chronic, of the right proximal femoral artery with echogenic atherosclerosis and no vascular flow. External iliac artery and common femoral artery appear patent. 2. Atherosclerosis on the left with no evidence of occlusion of the external iliac artery to the femo ral artery in its midportion.
--- NOTE | 2018-01-24 12:51 | P.PN ---
Subjective Progress Note Date: 01/24/18 Principal diagnosis: Acute hypoxic respiratory failure secondary to acute fluid volume overload secondary to acute renal failure. This a very pleasant 57-year-old gentleman who follows with Dr. Hastings as his primary care physician. He apparently hasn't seen him in over 2 years. 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 He has a 40 year pack per day smoking history. He presented to the emergency room yesterday at [facility] with complaints of increasing shortness of breath, cough and congestion. He was placed on BiPAP and subsequently transferred here for further treatment. Chest x-ray revealed evidence of fluid volume overload and pulmonary edema. Initial labs revealed a hemoglobin of 6.9, creatinine 7.80, bicarbonate 13, troponin 0.231, proBNP 49, 400. He was admitted to the selective care unit. He is seen there today in consultation. Currently on BiPAP 06/19 at 45% FiO2. He is awake and alert in mild respiratory distress. Labs today revealed RBC 4.4, hemoglobin 6.0. He is receiving his first unit of packed red blood cells. He is currently on a Lasix drip at 10 mg per hour. Nitroglycerin drip at 5 mcg/m. He is receiving sodium bicarb orally. He's been initiated on bronchodilators as needed. Nephrology is on the case. Patient is seen today 01/18/2018 in follow-up on the selective care unit. He is awake and alert in no acute distress. He is breathing quite a bit easier today as compared to yesterday. He did utilize the BiPAP throughout the evening and is currently on 4 L/m per nasal cannula to maintain O2 saturations in the 90s. He did undergo vascular access catheter and is currently receiving hemodialysis. He remains on the Lasix drip at 10 mg per hour. He is continued on his COPD exacerbation medications as well. Progress note dated 01/19/2018 This is a 57-year-old white male who presented with acute hypoxemic respiratory failure secondary to fluid overload/pulmonary edema from acute renal fire, anemia, and COPD exacerbation. The patient's chest x-ray slightly improved. Volume status is improved. He didn't get dialysis yesterday. Overall he is feeling better. 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 Yesterday we spent a great deal of time counseling him about the importance of smoking cessation. We did this in front of his daughter. The patient denies any cough or phlegm production. No fever chills. No chest pain or chest discomfort. No nausea vomiting or diarrhea. Labs today show a white count of 4.1 hemoglobin 7.8 hematocrit 23.7 and a platelet count that is normal. Sodium potassium normal chloride 94 CO2 28 BUN and creatinine were 55 and 4.66, compared to 69 and 7.80 on admission. N-terminal pro BNP was 49,400 on the fifth. Chest x-ray shows some mild fluid overload and small pleural effusions. On 01/20/2018 patient seen in follow-up on selective care unit. He is having his third hemodialysis treatment today, his breathing is easier, lung sounds are positive for mild bibasilar crackles, no rhonchi or wheezes noted. Some prolongation of expiratory phase. Overall no acute distress. He is resting comfortably in bed. He states that she is still smoking up to 2 packs a day, and most likely will be smoking again after discharge. Room air pulse ox is 94% , she is afebrile, vital signs are stable, denies any chest pain, he is alert, awake, oriented 3. No new labs were chest x-rays today, other than troponin which is trending down and is down to 3.370. Latest chest x-ray from [address] Chinchilla and showed COPD, cardiomegaly, mild vascular congestion, and small bilateral effusions. No acute events overnight, patient was advised to get up and sit up in the chair and ambulate with assistance after the hemodialysis. The patient is seen today 01/21/2018 in follow-up on the selective care unit. He is awake and alert in no acute distress. He denies any worsening shortness of breath, cough or congestion. Maintaining good O2 saturations in the upper 90s on room air. He's been afebrile. White count 6.1. Hemoglobin 8.2. The plan is for hemodialysis on Saturday schedule. He did undergo cardiac catheterization this morning which revealed a calcified right and left coronary systems. Severe triple-vessel coronary artery disease. Total occlusion of the RCA in the midportion been filled by collaterals from the left. Critical disease involving the mid left circumflex, critical disease involving the proximal LAD. Cardiothoracic surgeons are being consulted. The patient is seen again today 01/22/2018 in follow-up on the selective care unit. He is currently sitting up in bed. He is awake and alert in no acute distress. He denies any worsening shortness of breath, cough or congestion. No chest pain or palpitations. He has been seen by cardiothoracic surgeons and the plan is for attempting stent placement versus coronary artery bypass grafting. The patient is seen again today 01/23/2018 in follow-up on the selective care unit. He is resting quite comfortably in bed. He is awake and alert in no distress. He denies any chest pain, palpitations lightheadedness or dizziness. No shortness of breath, cough or congestion. Potassium 3.3. Creatinine 3.53. The plan is for PCI with Dr. Santos possibly in the a.m. Patient is seen again today 01/24/2018 in follow-up on the selective care unit. He denies any shortness of breath, cough or congestion. No chest pain or palpitations. White count 9.2. Hemoglobin 8.4. Creatinine 4.80. He had a duplex study of the lower extremities which revealed occlusion, likely chronic of the right proximal femoral artery with echogenic atherosclerosis and no vascular flow. External iliac artery and common femoral artery appeared patent. There is atherosclerosis of the left with no evidence of occlusion of the external iliac artery to the femoral artery in its midportion. The plan is for PCI in the next 24-48 hours per cardiology. Objective - Vital Signs Vital signs: Vital Signs Temp 97.7 F 01/24/18 11:40 Pulse 63 01/24/18 12:00 Resp 16 01/24/18 12:00 BP 143/70 01/24/18 11:40 Pulse Ox 96 01/24/18 11:40 Intake & Output 01/23/18 01/24/18 01/24/18 18:59 06:59 18:59 Intake Total 1450 850 Output Total 500 Balance 950 850 Weight 83.5 kg 82 kg Intake: IV 10 10 Invasive Line 4 10 Invasive Line 5 10 Oral 1440 840 Output: Urine 500 Other: Voiding Method Toilet Toilet Urinal Urinal # Voids 2 1 300 - Exam GENERAL EXAM: Alert, fairly comfortable in mild respiratory distress. HEAD: Normocephalic. EYES: Normal reaction of pupils, equal size. NOSE: Clear with pink turbinates. THROAT: No erythema or exudates. NECK: No masses, no JVD. CHEST: No chest wall deformity. LUNGS: Equal air entry, clear. Diminished. CVS: S1 and S2 normal with no audible murmur, regular rhythm. ABDOMEN: No hepatosplenomegaly, normal bowel sounds, no guarding or rigidity. SPINE: No scoliosis or deformity SKIN: No rashes CENTRAL NERVOUS SYSTEM: No focal deficits, tone is normal in all 4 extremities. EXTREMITIES: Left upper extremity amputation. There is no peripheral edema. No clubbing, no cyanosis. Peripheral pulses are intact. - Labs CBC & Chem 7: 01/24/18 06:22 01/24/18 06:22 Labs: Abnormal Lab Results - Last 24 Hours (Table) 01/24/18 01/24/18 Range/Units 06:22 06:22 RBC 2.79 L (4.30-5.90) m/uL Hgb 8.4 L (13.0-17.5) gm/dL Hct 26.6 L (39.0-53.0) % RDW 16.0 H (11.5-15.5) % Sodium 134 L (137-145) mmol/L Potassium 3.3 L (3.5-5.1) mmol/L BUN 59 H (9-20) mg/dL Creatinine 4.80 H (0.66-1.25) mg/dL Assessment and Plan Assessment: Impression: #1 Acute hypoxic respiratory failure secondary to fluid volume overload/ pulmonary edema secondary to acute renal failure, anemia, suspected chronic obstructive pulmonary disease exacerbation. #2 Acute kidney injury in a patient with a known history of chronic kidney disease. #3 Acute non-ST segment elevation myocardial infarction with ischemic cardiomyopathy and ejection fraction 30-35%, found to have severe triple-vessel disease and the plan is for PCI. #4 Hypertension, better controlled. #5 Chronic and ongoing tobacco dependence. #6 Hypothyroidism. #7 History of left upper extremity amputation. #8 History of cardiac emboli. #9 Acute anemia suspect secondary to chronic kidney disease. No evidence of active bleeding. Plan: The patient was seen and evaluated by Dr. Chinchilla. The patient is stable from the pulmonary standpoint. We'll continue with his current medications. We will follow him on an as-needed basis. I, the cosigning physician, performed a history & physical examination of the patient. Lungs sounds are clear. Diminished. Maintaining good O2 saturations in the 90s on room air. I discussed the assessment and plan of care with my nurse practitioner, Elizabeth Nevarez. I attest to the above progress note as dictated by her.
[2018-01-24] MEDS: ATORVASTATIN 80 MG TAB PO SCH (20:25)
--- NOTE | 2018-01-24 22:25 | PN ---
PROGRESS NOTE DATE OF SERVICE: 01/24/2018. PRESENTING COMPLAINT: Tired. INTERVAL HISTORY: This patient presented with acute pulmonary edema, acute MT, acute renal failure, on chronic kidney disease, now on hemodialysis. Also had COPD exacerbation. Patient is awaiting cardiac catheterization. No chest pain or shortness of breath. REVIEW OF SYSTEMS: Done for constitutional, cardiovascular, GI, pulmonary; relevant findings as above. CURRENT MEDICATIONS: Reviewed. PHYSICAL EXAMINATION: Temperature 97.6, pulse 83, respiration 16, blood pressure 135/70, pulse ox 100%. GENERAL APPEARANCE: Lying in bed, comfortable. EYES: Pupils equal. Conjunctivae pale. HEENT: External appearance of nose and ears normal. Oral cavity normal. NECK: JVD not raised. Mass not palpable. RESPIRATORY: Effort normal. LUNGS: Decreased breath sounds. CARDIOVASCULAR: First and second sounds normal. No edema. ABDOMEN: Soft, non-tender. Liver and spleen not palpable. PSYCHIATRY: Alert and oriented x3. Mood and affect normal. INVESTIGATIONS: Potassium 3.3, hemoglobin 8.4. ASSESSMENT: 1. Acute renal failure on top of chronic kidney disease, probably end-stage kidney disease, now on hemodialysis. 2. Severe metabolic acidosis from renal failure. 3. Normocytic anemia secondary to chronic kidney disease. 4. Acute chronic obstructive pulmonary disease exacerbation in a current smoker. 5. Chronic nicotine dependence. Patient is a cigarette smoker. 6. 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 7. Acute congestive heart failure exacerbation from systolic dysfunction, ejection fraction 30% to 35%, from underlying coronary artery disease, now stabilized. 8. Acute non-Q-wave myocardial infarction. 9. Triple-vessel disease per cardiac catheterization. PLAN: Continue current medication and treatment plan. Care was discussed with the patient. Awaiting cardiac catheterization by Dr. Santos. MMROXIEL / DARREL: [id number] /
[2018-01-25] MEDS: CARVEDILOL 12.5 MG TAB PO SCH ×2 (06:43→17:15)
[2018-01-25] MEDS: LEVOTHYROXINE 75 MCG TAB PO SCH (06:44)
[2018-01-25 07:13] LABS: Calcium 8.6 mg/dL (8.4-10.2); Potassium 3.3 mmol/L (3.5-5.1)
[2018-01-25] MEDS: BUDESONIDE 1 MG/2 ML NEBU INHALATION SCH ×2 (07:59→20:43)
[2018-01-25] MEDS: FORMOTEROL FUMARATE 20 MCG/2 ML NEBU INHALATION SCH ×2 (07:59→20:43)
[2018-01-25] MEDS: IPRATROPIUM-ALBUTEROL 3 ML NEB INHALATION SCH ×4 (07:59→20:43)
[2018-01-25] MEDS: ENOXAPARIN 30 MG/0.3 ML SYRINGE SQ SCH (08:54)
[2018-01-25] MEDS: FAMOTIDINE 20 MG TAB PO SCH ×2 (08:54→19:36)
[2018-01-25] MEDS: CITALOPRAM HYDROBROMIDE 20 MG TAB PO SCH (08:54)
[2018-01-25] MEDS: LISINOPRIL 10 MG TAB PO SCH (08:54)
[2018-01-25] MEDS: ASPIRIN 81 MG PO SCH (08:54)
[2018-01-25] MEDS: NICOTINE 21MG/24HR PATCH TRANSDERM SCH (08:54)
[2018-01-25] MEDS: ALLOPURINOL 100 MG TAB PO SCH (08:54)
[2018-01-25] MEDS: SPIRONOLACTONE 25 MG TAB PO SCH (08:55)
[2018-01-25] MEDS ORDERED: POTASSIUM CHLORIDE ER 20 MEQ TAB.ER PO STA (09:45)
--- NOTE | 2018-01-25 09:54 | P.PN ---
Subjective Progress Note Date: 01/25/18 Principal diagnosis: Severe cardiomyopathy unknown if is ischemic or nonischemic This is a pleasant 57-year-old gentleman with a past medical history significant for hypertension, stage IV chronic kidney disease, as well as significant history of smoking, presented to the emergency room complaining of progressive dyspnea. The patient was in his usual state of health but about 3-4 days before he presented to the hospital when he started experiencing progressive exertional dyspnea associated with orthopnea and also PND. He did not report any chest pain or chest discomfort, dizziness or lightheadedness, or syncope. When the patient presented to the ER he was found to be in volume overload. He also was found to be severely anemic with a hemoglobin around 6 and receives blood. Also the creatinine was around 5 and he was in acute on chronic renal failure. The patient underwent a dialysis catheter and he underwent dialysis twice. Apparently he is known to have stage IV chronic kidney disease but he was noncompliant with his appointments. An echocardiogram was performed and revealed severe cardiomyopathy with an EF around 35%. The patient is not aware of any prior cardiac history and never seen a treasury accountant in the past. The EKG showed sinus rhythm with diffuse nonspecific ST and T wave abnormalities quite concerning for ischemia. The chest x-ray showed findings consistent with CHF. The first set of troponin came in to be mildly elevated but the second set of troponin came in to be around 5. The patient underwent a heart catheterization yesterday and that revealed severe triple-vessel CAD. He was seen and evaluated by cardiothoracic surgeons for possible coronary artery bypass grafting and the patient does not want surgery. I'll follow-up with him today, he denies having any chest pain or chest discomfort. He was having diarrhea yesterday but it seems to be better today. If the diarrhea gets better by tomorrow I will schedule the patient to undergo a PCI on Saturday. Objective - Vital Signs Vital signs: Vital Signs Temp 97.6 F 01/24/18 19:50 Pulse 72 01/25/18 08:22 Resp 16 01/25/18 04:00 BP 141/66 01/25/18 04:00 Pulse Ox 100 01/25/18 04:00 Intake & Output 01/24/18 01/25/18 01/25/18 18:59 06:59 18:59 Intake Total 1090 300 30 Balance 1090 300 30 Intake: IV 10 Invasive Line 5 10 Oral 1080 300 30 Other: Voiding Method Toilet Toilet Urinal Urinal # Voids 1 1 - Constitutional General appearance: Present: no acute distress - Respiratory Respiratory: bilateral: CTA - Cardiovascular Rhythm: regular Heart sounds: normal: S1, S2 - Labs CBC & Chem 7: 01/24/18 06:22 01/25/18 06:31 Labs: Abnormal Lab Results - Last 24 Hours (Table) 01/25/18 Range/Units 06:31 Potassium 3.3 L (3.5-5.1) mmol/L BUN 40 H (9-20) mg/dL Creatinine 3.93 H (0.66-1.25) mg/dL Assessment and Plan Assessment: Assessment #1 congestive heart failure exacerbation secondary to systolic dysfunction Acute on chronic #2 severe cardiomyopathy and known if it's due to ischemic or nonischemic at this point #3 acute non-ST deviation myocardial infarction #4 hypertension #5 significant history of smoking Plan #1 continue the current medical treatment which is maximized which include aspirin, Coreg, lisinopril, and Aldactone #2 the patient was seen and evaluated by cardiothoracic surgeon and he does not want surgery to be done. #3 PCI of the LAD and left circumflex this coming Saturday.
--- NOTE | 2018-01-25 10:04 | P.PN ---
Subjective Patient is seen in follow-up for end-stage renal disease. He was started on hemodialysis this admission and is maintained on a Saturday schedule. His diarrhea has improved. He is noted to have severe triple-vessel disease and is scheduled for a cardiac catheterization on Saturday. Ejection fraction is 30-35%. No vomiting. No edema. Vital signs are stable. General: The patient appeared well nourished and normally developed. HEENT: Head exam is unremarkable. Neck is without jugular venous distension. LUNGS: Lungs are clear to auscultation and percussion. Breath sounds decreased. HEART: Rate and Rhythm are regular. First and second heart sounds normal. No murmurs, rubs or gallops. ABDOMEN: Abdominal exam reveals normal bowel sounds. Non-tender and non- distended. No evidence of peritonitis. EXTREMITITES: No clubbing, cyanosis, or edema. Objective - Vital Signs Vital signs: Vital Signs Temp 97.6 F 01/24/18 19:50 Pulse 72 01/25/18 08:22 Resp 16 01/25/18 04:00 BP 141/66 01/25/18 04:00 Pulse Ox 100 01/25/18 04:00 Intake & Output 01/24/18 01/25/18 01/25/18 18:59 06:59 18:59 Intake Total 1090 300 30 Balance 1090 300 30 Intake: IV 10 Invasive Line 5 10 Oral 1080 300 30 Other: Voiding Method Toilet Toilet Urinal Urinal # Voids 1 1 - Labs CBC & Chem 7: 01/24/18 06:22 01/25/18 06:31 Labs: Abnormal Lab Results - Last 24 Hours (Table) 01/25/18 Range/Units 06:31 Potassium 3.3 L (3.5-5.1) mmol/L BUN 40 H (9-20) mg/dL Creatinine 3.93 H (0.66-1.25) mg/dL Assessment and Plan Plan: Assessment: 1. End-stage renal disease maintained on hemodialysis on a Saturday schedule. 2. Systolic CHF with ejection fraction of 30-35%. 3. Coronary artery disease scheduled for stent placement on Saturday. 4. Hypertension with chronic kidney disease. Controlled. 5. Hypokalemia from poor oral intake and renal losses. Rule out magnesium deficiency. 6. Anemia of chronic kidney disease maintained on Aranesp. 7. Diarrhea. Improved. Plan: Hemodialysis on Saturday. Check phosphorus level. Replace potassium. 40 mEq today. Check magnesium level. Outpatient dialysis at [facility] has been set up.
[2018-01-25 10:35] LABS: Magnesium 1.9 mg/dL (1.6-2.3); Phosphorus 2.6 mg/dL (2.5-4.5)
[2018-01-25] MEDS: CALCIUM CARBONATE LIQUID 500 MG/5 ML CUP PO SCH (17:14)
--- NOTE | 2018-01-25 19:35 | PN ---
PROGRESS NOTE DATE OF SERVICE: 01/25/2018 PRESENT COMPLAINT: Tired. INTERVAL HISTORY: Patient presented with acute pulmonary edema/acute MT/acute renal failure on chronic kidney disease, advanced to hemodialysis and also had COPD exacerbation. Cardiac cath showed triple-vessel disease. The patient does not want surgical intervention. Pending angioplasty by Dr. Santos now on Saturday. Tolerating a diet. Some heartburn is present. REVIEW OF SYSTEMS: Done for constitutional, cardiovascular, GI, pulmonary; relevant findings as above. CURRENT MEDICATIONS: Reviewed. EXAMINATION: Temperature 97.8, pulse 59, respirations 16, blood pressure 149/55, pulse ox 98% on room air. GENERAL APPEARANCE: Lying in bed, comfortable. EYES: Pupils equal. Conjunctivae pale. HEENT: External appearance of nose and ears normal. Oral cavity normal. NECK: JVD not raised. Mass not palpable. RESPIRATORY: Effort normal. LUNGS: Decreased breath sounds. CARDIOVASCULAR: First and second sounds normal. No edema. ABDOMEN: Soft, nontender. Liver and spleen not palpable. PSYCHIATRY: Alert and oriented x3. Mood and affect normal. INVESTIGATIONS: Potassium 3.3, BUN 40, creatinine 3.93. ASSESSMENT: 1. Acute renal failure on top of chronic kidney disease, probably end-stage kidney disease on hemodialysis. 2. Severe metabolic acidosis from renal failure. 3. Normocytic anemia secondary to chronic kidney disease. 4. Acute chronic obstructive pulmonary disease exacerbation in a current smoker. 5. Chronic nicotine dependence patient. The patient is a cigarette smoker. 6. 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 7. Acute congestive heart failure exacerbation from systolic dysfunction, ejection fraction 30%-35%, underlying coronary artery disease, now stabilized. 8. Acute non-Q-wave myocardial infarction. 9. Triple-vessel disease per cardiac catheterization, awaiting angioplasty of left anterior descending and circumflex. PLAN: Awaiting angioplasty and stenting on Saturday. Care was discussed with the patient and the brother at the bedside. Will increase the Pepcid to 20 mg twice a day. MMODL / IJN: [id number] /
[2018-01-25] MEDS: ATORVASTATIN 80 MG TAB PO SCH (19:36)
[2018-01-26] MEDS: LEVOTHYROXINE 75 MCG TAB PO SCH (06:27)
[2018-01-26] MEDS: CARVEDILOL 12.5 MG TAB PO SCH ×2 (06:27→17:37)
[2018-01-26] MEDS: CALCIUM CARBONATE LIQUID 500 MG/5 ML CUP PO SCH ×3 (06:27→17:37)
[2018-01-26] MEDS: BUDESONIDE 1 MG/2 ML NEBU INHALATION SCH ×2 (08:18→19:29)
[2018-01-26] MEDS: IPRATROPIUM-ALBUTEROL 3 ML NEB INHALATION SCH ×4 (08:18→19:29)
[2018-01-26] MEDS: FORMOTEROL FUMARATE 20 MCG/2 ML NEBU INHALATION SCH ×2 (08:30→19:29)
[2018-01-26] MEDS: ASPIRIN 81 MG PO SCH (08:50)
[2018-01-26] MEDS: LISINOPRIL 10 MG TAB PO SCH (08:50)
[2018-01-26] MEDS: NICOTINE 21MG/24HR PATCH TRANSDERM SCH (08:50)
[2018-01-26] MEDS: predniSONE 20 MG TAB PO SCH (08:51)
[2018-01-26] MEDS: ENOXAPARIN 30 MG/0.3 ML SYRINGE SQ SCH (08:51)
[2018-01-26] MEDS: ALLOPURINOL 100 MG TAB PO SCH (08:51)
[2018-01-26] MEDS: FAMOTIDINE 20 MG TAB PO SCH ×2 (08:51→21:08)
[2018-01-26] MEDS: SPIRONOLACTONE 25 MG TAB PO SCH (08:51)
[2018-01-26] MEDS: CITALOPRAM HYDROBROMIDE 20 MG TAB PO SCH (08:51)
--- NOTE | 2018-01-26 10:05 | P.PN ---
Subjective Patient is seen in follow-up for end-stage renal disease. He was started on hemodialysis this admission and is maintained on a Saturday schedule. His diarrhea has improved. He is noted to have severe triple-vessel disease and is scheduled for a cardiac catheterization on Saturday. Ejection fraction is 30-35%. No vomiting. No edema. Vital signs are stable. General: The patient appeared well nourished and normally developed. HEENT: Head exam is unremarkable. Neck is without jugular venous distension. LUNGS: Lungs are clear to auscultation and percussion. Breath sounds decreased. HEART: Rate and Rhythm are regular. First and second heart sounds normal. No murmurs, rubs or gallops. ABDOMEN: Abdominal exam reveals normal bowel sounds. Non-tender and non- distended. No evidence of peritonitis. EXTREMITITES: No clubbing, cyanosis, or edema. Objective - Vital Signs Vital signs: Vital Signs Temp 97.7 F 01/25/18 19:39 Pulse 60 01/26/18 08:43 Resp 16 01/26/18 06:24 BP 148/69 01/26/18 06:24 Pulse Ox 94 L 01/26/18 06:24 Intake & Output 01/25/18 01/26/18 01/26/18 18:59 06:59 18:59 Intake Total 270 240 240 Output Total 100 Balance 170 240 240 Weight 79.7 kg 87.5 kg Intake: Oral 270 240 240 Output: Urine 100 Other: Voiding Method Urinal # Voids 0 - Labs CBC & Chem 7: 01/24/18 06:22 01/25/18 06:31 Assessment and Plan Plan: Assessment: 1. End-stage renal disease maintained on hemodialysis on a Saturday schedule. 2. Systolic CHF with ejection fraction of 30-35%. 3. Coronary artery disease scheduled for stent placement on Saturday. 4. Hypertension with chronic kidney disease. Controlled. 5. Hypokalemia from poor oral intake and renal losses. Magnesium replete. 6. Anemia of chronic kidney disease maintained on Aranesp. 7. Diarrhea. Improved. Plan: Hemodialysis on Saturday. Phosphorus at goal. Outpatient dialysis at [facility] has been set up.
[2018-01-26] MEDS: ALPRAZolam 0.25 MG TAB PO PRN (12:30)
--- NOTE | 2018-01-26 13:18 | P.PN ---
Subjective Progress Note Date: 01/26/18 Principal diagnosis: Severe cardiomyopathy unknown if is ischemic or nonischemic This is a pleasant 57-year-old gentleman with a past medical history significant for hypertension, stage IV chronic kidney disease, as well as significant history of smoking, presented to the emergency room complaining of progressive dyspnea. The patient was in his usual state of health but about 3-4 days before he presented to the hospital when he started experiencing progressive exertional dyspnea associated with orthopnea and also PND. He did not report any chest pain or chest discomfort, dizziness or lightheadedness, or syncope. When the patient presented to the ER he was found to be in volume overload. He also was found to be severely anemic with a hemoglobin around 6 and receives blood. Also the creatinine was around 5 and he was in acute on chronic renal failure. The patient underwent a dialysis catheter and he underwent dialysis twice. Apparently he is known to have stage IV chronic kidney disease but he was noncompliant with his appointments. An echocardiogram was performed and revealed severe cardiomyopathy with an EF around 35%. The patient is not aware of any prior cardiac history and never seen a spring repairer helper hand in the past. The EKG showed sinus rhythm with diffuse nonspecific ST and T wave abnormalities quite concerning for ischemia. The chest x-ray showed findings consistent with CHF. The first set of troponin came in to be mildly elevated but the second set of troponin came in to be around 5. The patient underwent a heart catheterization yesterday and that revealed severe triple- vessel CAD. He was seen and evaluated by cardiothoracic surgeons for possible coronary artery bypass grafting and the patient does not want surgery. I'll follow-up with him today, he denies having any chest pain or chest discomfort. He was having diarrhea yesterday but it seems to be better today. The hemoglobin continues to be around 8. The patient is a scheduled to undergo a PCI of the left circumflex and LAD tomorrow. Objective - Vital Signs Vital signs: Vital Signs Temp 97.7 F 01/25/18 19:39 Pulse 60 01/26/18 08:43 Resp 16 01/26/18 06:24 BP 148/69 01/26/18 06:24 Pulse Ox 94 L 01/26/18 06:24 Intake & Output 01/25/18 01/26/18 01/26/18 18:59 06:59 18:59 Intake Total 270 240 240 Output Total 100 Balance 170 240 240 Weight 79.7 kg 87.5 kg Intake: Oral 270 240 240 Output: Urine 100 Other: Voiding Method Urinal # Voids 0 - Constitutional General appearance: Present: no acute distress - Respiratory Respiratory: bilateral: CTA - Cardiovascular Rhythm: regular Heart sounds: normal: S1, S2 - Labs CBC & Chem 7: 01/24/18 06:22 01/25/18 06:31 Assessment and Plan Assessment: Assessment #1 congestive heart failure exacerbation secondary to systolic dysfunction Acute on chronic #2 severe cardiomyopathy and known if it's due to ischemic or nonischemic at this point #3 acute non-ST deviation myocardial infarction #4 hypertension #5 significant history of smoking Plan #1 continue the current medical treatment which is maximized which include aspirin, Coreg, lisinopril, and Aldactone #2 the patient was seen and evaluated by cardiothoracic surgeon and he does not want surgery to be done. #3 PCI of the LAD and left circumflex this coming Saturday.
[2018-01-26] MEDS: ALPRAZolam 0.5 MG TAB PO PRN (21:08)
[2018-01-26] MEDS: ATORVASTATIN 80 MG TAB PO SCH (21:08)
[2018-01-27] MEDS: CALCIUM CARBONATE LIQUID 500 MG/5 ML CUP PO SCH ×3 (06:18→18:30)
[2018-01-27] MEDS: ALLOPURINOL 100 MG TAB PO SCH (06:34)
[2018-01-27] MEDS: LEVOTHYROXINE 75 MCG TAB PO SCH (06:34)
[2018-01-27] MEDS: CITALOPRAM HYDROBROMIDE 20 MG TAB PO SCH (06:34)
[2018-01-27] MEDS: ASPIRIN 81 MG PO SCH (06:34)
[2018-01-27] MEDS: CARVEDILOL 12.5 MG TAB PO SCH ×2 (06:34→18:30)
[2018-01-27] MEDS: FAMOTIDINE 20 MG TAB PO SCH (06:35)
[2018-01-27] MEDS: predniSONE 20 MG TAB PO SCH (06:35)
[2018-01-27] MEDS: LISINOPRIL 10 MG TAB PO SCH (06:35)
[2018-01-27] MEDS: SPIRONOLACTONE 25 MG TAB PO SCH (06:35)
[2018-01-27] MEDS: ENOXAPARIN 30 MG/0.3 ML SYRINGE SQ SCH (06:35)
[2018-01-27 08:03] LABS: Calcium 8.6 mg/dL (8.4-10.2); Potassium 3.9 mmol/L (3.5-5.1)
[2018-01-27] MEDS: BUDESONIDE 1 MG/2 ML NEBU INHALATION SCH ×2 (08:11→20:00)
[2018-01-27] MEDS: IPRATROPIUM-ALBUTEROL 3 ML NEB INHALATION SCH ×4 (08:12→20:00)
[2018-01-27] MEDS: FORMOTEROL FUMARATE 20 MCG/2 ML NEBU INHALATION SCH ×2 (08:12→20:00)
--- NOTE | 2018-01-27 09:06 | P.PN ---
Subjective Patient is seen in follow-up for end-stage renal disease. He was started on hemodialysis this admission and is maintained on a Saturday schedule. His diarrhea has improved. He is noted to have severe triple-vessel disease and is scheduled for a cardiac catheterization today. Ejection fraction is 30-35%. No vomiting. No edema. Vital signs are stable. General: The patient appeared well nourished and normally developed. HEENT: Head exam is unremarkable. Neck is without jugular venous distension. LUNGS: Lungs are clear to auscultation and percussion. Breath sounds decreased. HEART: Rate and Rhythm are regular. First and second heart sounds normal. No murmurs, rubs or gallops. ABDOMEN: Abdominal exam reveals normal bowel sounds. Non-tender and non- distended. No evidence of peritonitis. EXTREMITITES: No clubbing, cyanosis, or edema. Objective - Vital Signs Vital signs: Vital Signs Temp 97.5 F L 01/27/18 08:00 Pulse 59 L 01/27/18 08:00 Resp 16 01/27/18 08:00 BP 138/67 01/27/18 08:00 Pulse Ox 97 01/27/18 08:00 Intake & Output 01/26/18 01/27/18 01/27/18 18:59 06:59 18:59 Intake Total 480 600 Output Total 0 Balance 480 600 Intake: Oral 480 600 Output: Urine 0 Other: Voiding Method Urinal Urinal # Voids 1 - Labs CBC & Chem 7: 01/24/18 06:22 01/27/18 06:20 Labs: Abnormal Lab Results - Last 24 Hours (Table) 01/27/18 Range/Units 06:20 Sodium 135 L (137-145) mmol/L Carbon Dioxide 16 L (22-30) mmol/L BUN 66 H (9-20) mg/dL Creatinine 6.64 H* (0.66-1.25) mg/dL Glucose 109 H (74-99) mg/dL Assessment and Plan Plan: Assessment: 1. End-stage renal disease maintained on hemodialysis on a Saturday schedule. 2. Systolic CHF with ejection fraction of 30-35%. 3. Coronary artery disease scheduled for stent placement today. 4. Hypertension with chronic kidney disease. Controlled. 5. Hypokalemia from poor oral intake and renal losses. Magnesium replete. Improved. 6. Anemia of chronic kidney disease maintained on Aranesp. 7. Diarrhea. Improved. Plan: Hemodialysis today. Phosphorus at goal. Outpatient dialysis at [facility] has been set up.
--- NOTE | 2018-01-27 09:23 | P.PN ---
Subjective Progress Note Date: 01/27/18 Principal diagnosis: Severe cardiomyopathy unknown if is ischemic or nonischemic This is a pleasant 57-year-old gentleman with a past medical history significant for hypertension, stage IV chronic kidney disease, as well as significant history of smoking, presented to the emergency room complaining of progressive dyspnea. The patient was in his usual state of health but about 3-4 days before he presented to the hospital when he started experiencing progressive exertional dyspnea associated with orthopnea and also PND. He did not report any chest pain or chest discomfort, dizziness or lightheadedness, or syncope. When the patient presented to the ER he was found to be in volume overload. He also was found to be severely anemic with a hemoglobin around 6 and receives blood. Also the creatinine was around 5 and he was in acute on chronic renal failure. The patient underwent a dialysis catheter and he underwent dialysis twice. Apparently he is known to have stage IV chronic kidney disease but he was noncompliant with his appointments. An echocardiogram was performed and revealed severe cardiomyopathy with an EF around 35%. The patient is not aware of any prior cardiac history and never seen a drywall mechanic in the past. The EKG showed sinus rhythm with diffuse nonspecific ST and T wave abnormalities quite concerning for ischemia. The chest x-ray showed findings consistent with CHF. The first set of troponin came in to be mildly elevated but the second set of troponin came in to be around 5. The patient underwent a heart catheterization yesterday and that revealed severe triple- vessel CAD. He was seen and evaluated by cardiothoracic surgeons for possible coronary artery bypass grafting and the patient does not want surgery. I'll follow-up with him today, he denies having any chest pain or chest discomfort. He was having diarrhea yesterday but it seems to be better today. The hemoglobin continues to be around 8. I have a long discussion with the patient today regarding the procedure which would be done around noon. The patient stated that he will be compliant with his medications including dual antiplatelet therapy. Because of that I am planning to proceed with a PCI using drug-eluting stent. Objective - Vital Signs Vital signs: Vital Signs Temp 97.5 F L 01/27/18 08:00 Pulse 59 L 01/27/18 08:00 Resp 16 01/27/18 08:00 BP 138/67 01/27/18 08:00 Pulse Ox 97 01/27/18 08:00 Intake & Output 01/26/18 01/27/18 01/27/18 18:59 06:59 18:59 Intake Total 480 600 Output Total 0 Balance 480 600 Intake: Oral 480 600 Output: Urine 0 Other: Voiding Method Urinal Urinal # Voids 1 - Constitutional General appearance: Present: no acute distress - Respiratory Respiratory: right: CTA, left: diminished - Cardiovascular Rhythm: regular Heart sounds: normal: S1, S2 - Labs CBC & Chem 7: 01/24/18 06:22 01/27/18 06:20 Labs: Abnormal Lab Results - Last 24 Hours (Table) 01/27/18 Range/Units 06:20 Sodium 135 L (137-145) mmol/L Carbon Dioxide 16 L (22-30) mmol/L BUN 66 H (9-20) mg/dL Creatinine 6.64 H* (0.66-1.25) mg/dL Glucose 109 H (74-99) mg/dL Assessment and Plan Assessment: Assessment #1 congestive heart failure exacerbation secondary to systolic dysfunction Acute on chronic #2 severe cardiomyopathy and known if it's due to ischemic or nonischemic at this point #3 acute non-ST deviation myocardial infarction #4 hypertension #5 significant history of smoking Plan #1 continue the current medical treatment which is maximized which include aspirin, Coreg, lisinopril, and Aldactone #2 the patient was seen and evaluated by cardiothoracic surgeon and he does not want surgery to be done. #3 PCI of the LAD and left circumflex later on today
[2018-01-27] MEDS ORDERED: MIDAZOLAM 2 MG/2 ML VIAL ONE (09:52)
[2018-01-27] MEDS ORDERED: LIDOCAINE 1% INJ 10MG/ML (20 ML MDV) ONE ×2 (09:52→10:40)
[2018-01-27] MEDS ORDERED: SODIUM CHLORIDE 0.9% 1,000 ML IV ONE (10:09)
[2018-01-27] MEDS: MIDAZOLAM 2 MG/2 ML VIAL IVP ONE ×2 (10:32→11:19)
[2018-01-27] MEDS ORDERED: fentaNYL (PF) 50 MCG/ML 2 ML AMP ONE (10:36)
[2018-01-27] MEDS: fentaNYL (PF) 50 MCG/ML 2 ML AMP IV ONE ×2 (10:38→10:42)
[2018-01-27] MEDS ORDERED: LIDOCAINE 1% INJ 10MG/ML (20 ML MDV) SQ ONE ×2 (10:39→10:41)
[2018-01-27] MEDS ORDERED: BIVALIRUDIN BOLUS 250 MG/50 ML IV ONE (11:00)
[2018-01-27] MEDS ORDERED: BIVALIRUDIN 250 MG in SODIUM CHLORIDE 0.9% 35 ML IV ONE (11:01)
[2018-01-27] MEDS ORDERED: IOPAMIDOL-370 125ML BTL INJ ONE (11:38)
--- NOTE | 2018-01-27 11:52 | PN ---
PROGRESS NOTE DATE OF SERVICE: 01/26/2018 PRESENTING COMPLAINT: Tired. INTERVAL HISTORY: This patient presented with acute pulmonary edema, acute CO, acute renal failure on chronic kidney disease. The patient progressed to start on hemodialysis. Also had COPD exacerbation. Cardiac cath showed triple-vessel disease. Patient did not want surgical intervention. The patient is pending angioplasty by Dr. Santos on Saturday. The patient was seen by me yesterday afternoon. REVIEW OF SYSTEMS: Review of systems done for constitutional, cardiovascular, GI, pulmonary; relevant findings as above. CURRENT MEDICATIONS: Current medications are reviewed. PHYSICAL EXAMINATION: On examination, temperature 97.1 pulse 51, respirations 16, blood pressure 151/72, pulse ox 95% on room air. GENERAL APPEARANCE: Lying in bed, comfortable. EYES: Pupils equal. Conjunctivae pale. HENT: External appearance of nose and ears normal. Oral cavity normal. NECK: JVD not raised. Mass not palpable. RESPIRATORY: Effort normal. LUNGS: Decreased breath sounds. CARDIOVASCULAR: First and second sounds normal. No edema. ABDOMEN: Soft, nontender. Liver and spleen not palpable. PSYCHIATRY: Alert and oriented x3. Mood and affect normal. INVESTIGATIONS: Potassium 3.3, BUN 40, creatinine 3.93. ASSESSMENT: 1. Acute renal failure on top of chronic kidney disease, progressed to end-stage kidney disease, now on hemodialysis. 2. Severe metabolic acidosis from renal failure, improved. 3. Normocytic anemia secondary to chronic kidney disease. 4. Acute chronic obstructive pulmonary disease exacerbation in a current smoker, improved. 5. Chronic nicotine dependence. Patient is a cigarette smoker. 6. 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 7. Acute congestive heart failure exacerbation from systolic dysfunction, ejection fraction 30% to 35% from underlying coronary artery disease, stabilized. 8. Acute non-Q-wave myocardial infarction, present on admission. 9. Triple-vessel coronary artery disease per cardiac catheterization. The patient did not want surgery pending angioplasty stenting by Dr. Santos. PLAN: Continue current medication and treatment plan. Tomorrow angioplasty is anticipated. The patient then will be going home. Care was discussed with the patient and Dr. Santos. MMODL / SRINIVASN: [id number] /
[2018-01-27] MEDS ORDERED: PRASUGREL 10 MG TAB ONE (11:57)
[2018-01-27] MEDS ORDERED: PRASUGREL 10 MG TAB PO ONE (12:00)
[2018-01-27] MEDS ORDERED: IOPAMIDOL-370 100ML BTL INJ ONE (12:04)
[2018-01-27] MEDS ORDERED: HEPARIN SODIUM 1,000 UN/ML (10ML VL) ONE (12:16)
[2018-01-27] MEDS ORDERED: ATROPINE SULFATE 0.1 MG/ML 10ML SYRINGE IV PRN (12:22)
[2018-01-27] MEDS ORDERED: ZOLPIDEM 5 MG TAB PO PRN (12:22)
[2018-01-27] MEDS ORDERED: MAG HYDROX/AL HYDROX/SIMETH 30 ML CUP PO PRN (12:22)
[2018-01-27] MEDS ORDERED: RX INFO: IV CONTRAST WAS GIVEN 1 EACH MISC MISCELLANE PRN (12:22)
[2018-01-27] MEDS ORDERED: NITROGLYCERIN SL TABS 0.4 MG TAB SUBLINGUAL PRN (12:22)
[2018-01-27] MEDS ORDERED: SODIUM CHLORIDE 0.9% 1,000 ML IV SCH (12:30)
[2018-01-27] MEDS ORDERED: HEPARIN SODIUM,PORCINE 5,000 UNIT/ML 1 ML VIAL ONE ×2 (12:37)
--- NOTE | 2018-01-27 12:46 | LTR ---
DATE OF SERVICE: 01/27/2018 RE: Jordan Boogie Dear Dr. Hastings; Mr. Jordan Boogie was admitted to [facility] with congestive heart failure and was ruled in for acute non ST-elevation myocardial infarction. He underwent a heart catheterization, was found to have severe triple-vessel coronary artery disease. He refused to have coronary artery bypass grafting and because of that, he underwent coronary artery angioplasty and stenting of both the LAD and the circumflex. The procedure was completed without any complication. . Thank you for allowing me to participate in his care and please do not hesitate to call if you have any question or concern. Sincerely, Alessio Santos MD MMROXIEL / SRINIVASN: [id number] /
[2018-01-27 13:46] LABS: Glucose,Whole Blood 106 mg/dL (75-99)
[2018-01-27] MEDS: NICOTINE 21MG/24HR PATCH TRANSDERM SCH (18:06)
[2018-01-27] MEDS: ATORVASTATIN 80 MG TAB PO SCH (21:32)
--- NOTE | 2018-01-27 22:45 | PN ---
PROGRESS NOTE DATE OF SERVICE: 01/27/2018 This 57-year-old gentleman who was admitted with features of acute non ST- elevation myocardial infarction, also had acute renal failure. The patient is on hemodialysis. The patient underwent a cardiac catheterization and stenting of the LAD and circumflex by Dr. Santos. The patient was recommended CABG originally, but the patient is not willing for the same. The patient closely monitored in ICU at this time. PAST MEDICAL HISTORY: Reviewed. REVIEW OF SYSTEMS: Cardiovascular as mentioned earlier. Respiratory: As mentioned earlier. GI: As mentioned earlier. : As mentioned earlier. NERVOUS SYSTEM: No numbness or weakness. CURRENT MEDICATIONS ARE: Reviewed and include: 1. Tylenol 650 q.6h p.r.n. 2. Maalox. 3. DuoNeb q.i.d. and p.r.n. 4. Zyloprim 200 mg. 5. Xanax 0.25 b.i.d. 6. Xanax p.r.n. 7. Aspirin 81 mg. 8. Lipitor 80 mg. 9. Atropine. 10.Pulmicort. 11.Coreg 25 mg. 12.Celexa. 14.Lovenox. 15.Pepcid. 16.Perforomist. 17.Synthroid. 18.Zestril. 19.Imodium. 20.Habitrol 21. 21.Nicorette gum. 22.Nitrostat. 23.Effient. 24.Prednisone. 25.Aldactone. 26.Ambien. PHYSICAL EXAM: The patient is alert, oriented x3, pulse 52, blood pressure 141/50, respiration 12, temperature normal, pulse ox 98% on room air. HEENT: Conjunctivae normal. Oral mucosa moist. Neck is no jugular venous distention. No carotid bruit. No lymph node enlargement. Cardiovascular System: S1, S2. Respiration: Breath sounds diminished in the bases. A few scattered rhonchi and crackles. ABDOMEN: Soft, nontender. No mass palpable. Legs: No edema and no swelling. NERVOUS SYSTEM: Higher functions as mentioned earlier. Moves all 4 limbs. No focal motor or sensory deficits. Lymphatics: No lymph nodes palpable in the neck, axillae or groin. Skin: No ulcer, rash or bleeding. LAB STUDIES: WBC 9.2, hemoglobin is 8.4, sodium 134, creatinine 6.64. ASSESSMENT: 1. Acute non ST-segment elevation myocardial infarction status post cardiac catheterization and stenting of the LAD and circumflex. 2. Acute on chronic renal failure on hemodialysis. 3. End stage renal disease with stage IV. 4. History of severe metabolic acidosis. 5. Normocytic anemia. 6. Chronic obstructive pulmonary disease, acute exacerbation. 7. History of nicotine dependence. 8. Congestive heart failure with chronic systolic dysfunction with acute on chronic systolic dysfunction, ejection fraction 30 to 35%. 9. Three vessel coronary disease. RECOMMENDATIONS AND DISCUSSION: In this 57-year-old gentleman who presented with multiple complex medical issues , we will monitor the patient closely. Continue the current medications. Continue the antiplatelet agents. Monitor blood sugars. Monitor creatinine closely and patient is undergoing hemodialysis 2.5 L has been removed. We will continue to monitor and repeat labs will be ordered. The prognosis guarded because of multiple complex medical issues and further recommendations to follow. Discussed with the patient who understands and agrees. We will follow the patient closely along with multiple consultants. DENNIS / DARREL: [id number] / ABHINAV
[2018-01-28 04:40] LABS: Basophils % (A) 0 %; Eosinophils # (A) 0.2 k/uL (0-0.7); Eosinophils % (A) 3 %; HCT 24.5 % (39.0-53.0); HGB 8.2 gm/dL (13.0-17.5); Lymphocytes # (A) 0.6 k/uL (1.0-4.8); Lymphocytes % (A) 10 %; MCHC 33.3 g/dL (31.0-37.0); Mean Platelet Volume 7.1; Monocytes # (A) 0.5 k/uL (0-1.0); Monocytes % (A) 8 %; Neutrophils % (A) 78 %; Platelet Count 154 k/uL (150-450); RBC 2.63 m/uL (4.30-5.90); RDW 15.7 % (11.5-15.5); WBC 6.4 k/uL (3.8-10.6)
[2018-01-28 04:55] LABS: Calcium 7.9 mg/dL (8.4-10.2); Potassium 3.2 mmol/L (3.5-5.1)
[2018-01-28] MEDS: LEVOTHYROXINE 75 MCG TAB PO SCH (06:24)
[2018-01-28] MEDS: BUDESONIDE 1 MG/2 ML NEBU INHALATION SCH ×2 (07:20→20:37)
[2018-01-28] MEDS: FORMOTEROL FUMARATE 20 MCG/2 ML NEBU INHALATION SCH ×2 (07:20→20:37)
[2018-01-28] MEDS: IPRATROPIUM-ALBUTEROL 3 ML NEB INHALATION SCH ×4 (07:20→20:37)
[2018-01-28] MEDS: CALCIUM CARBONATE LIQUID 500 MG/5 ML CUP PO SCH ×3 (07:52→18:09)
[2018-01-28] MEDS: CARVEDILOL 12.5 MG TAB PO SCH ×2 (07:52→18:09)
[2018-01-28] MEDS: POTASSIUM CHLORIDE ER 20 MEQ TAB.ER PO SCH ×3 (07:52→10:11)
--- NOTE | 2018-01-28 07:54 | P.PN ---
Subjective Patient is seen in follow-up for end-stage renal disease. He was started on hemodialysis this admission and is maintained on a Saturday schedule. His diarrhea has improved. He is noted to have severe triple-vessel disease and had stent placed to the LAD and circumflex in January 27. Denies any chest pain or shortness of breath. Ejection fraction is 30-35%. No vomiting. No edema. Vital signs are stable. General: The patient appeared well nourished and normally developed. HEENT: Head exam is unremarkable. Neck is without jugular venous distension. LUNGS: Lungs are clear to auscultation and percussion. Breath sounds decreased. HEART: Rate and Rhythm are regular. First and second heart sounds normal. No murmurs, rubs or gallops. ABDOMEN: Abdominal exam reveals normal bowel sounds. Non-tender and non- distended. No evidence of peritonitis. EXTREMITITES: No clubbing, cyanosis, or edema. Objective - Vital Signs Vital signs: Vital Signs Temp 98.1 F 01/28/18 04:00 Pulse 54 L 01/28/18 07:37 Resp 13 01/28/18 07:00 BP 152/59 01/28/18 07:00 Pulse Ox 98 01/28/18 07:00 Intake & Output 01/27/18 01/28/18 01/28/18 18:59 06:59 18:59 Intake Total 504 820 Output Total 300 Balance 504 520 Weight 83.1 kg Intake: IV 504 450 Invasive Line 5 10 Sodium Chloride 0.9% 1, 375 450 000 ml @ 75 mls/hr IV . [id number] [facility] Rx#:[id number] Oral 370 Output: Urine 300 Other: Voiding Method Urinal # Voids 0 0 ABP, PAP, CO, CI - Last Documented Arterial Blood Pressure 186/71 - Labs CBC & Chem 7: 01/28/18 03:50 01/28/18 03:50 Labs: Abnormal Lab Results - Last 24 Hours (Table) 01/27/18 01/27/18 01/28/18 Range/Units 06:20 13:44 03:50 RBC 2.63 L (4.30-5.90) m/uL Hgb 8.2 L (13.0-17.5) gm/dL Hct 24.5 L (39.0-53.0) % RDW 15.7 H (11.5-15.5) % Lymphocytes # 0.6 L (1.0-4.8) k/uL Sodium 135 L (137-145) mmol/L Potassium (3.5-5.1) mmol/L Carbon Dioxide 16 L (22-30) mmol/L BUN 66 H (9-20) mg/dL Creatinine 6.64 H* (0.66-1.25) mg/dL Glucose 109 H (74-99) mg/dL POC Glucose (mg/dL) 106 H (75-99) mg/dL Calcium (8.4-10.2) mg/dL 01/28/18 Range/Units 03:50 RBC (4.30-5.90) m/uL Hgb (13.0-17.5) gm/dL Hct (39.0-53.0) % RDW (11.5-15.5) % Lymphocytes # (1.0-4.8) k/uL Sodium 135 L (137-145) mmol/L Potassium 3.2 L (3.5-5.1) mmol/L Carbon Dioxide (22-30) mmol/L BUN 31 H (9-20) mg/dL Creatinine 3.60 H (0.66-1.25) mg/dL Glucose (74-99) mg/dL POC Glucose (mg/dL) (75-99) mg/dL Calcium 7.9 L (8.4-10.2) mg/dL Assessment and Plan Plan: Assessment: 1. End-stage renal disease maintained on hemodialysis on a Saturday schedule. 2. Systolic CHF with ejection fraction of 30-35%. 3. Coronary artery disease status post stenting to the LAD and circumflex on January 27. 4. Hypertension with chronic kidney disease. Controlled. 5. Hypokalemia from poor oral intake and renal losses. Magnesium replete. Improved. 6. Anemia of chronic kidney disease maintained on Aranesp. 7. Diarrhea. Improved. Plan: Hemodialysis tomorrow. Replace potassium. 60 mEq today. Phosphorus at goal. Outpatient dialysis at [facility] has been set up.
[2018-01-28] MEDS: ASPIRIN 81 MG PO SCH (08:00)
[2018-01-28] MEDS: SPIRONOLACTONE 25 MG TAB PO SCH (08:00)
[2018-01-28] MEDS: NICOTINE 21MG/24HR PATCH TRANSDERM SCH (08:00)
[2018-01-28] MEDS: FAMOTIDINE 20 MG TAB PO SCH (08:00)
[2018-01-28] MEDS: ENOXAPARIN 30 MG/0.3 ML SYRINGE SQ SCH (08:00)
[2018-01-28] MEDS: ALLOPURINOL 100 MG TAB PO SCH (08:00)
[2018-01-28] MEDS: CITALOPRAM HYDROBROMIDE 20 MG TAB PO SCH (08:00)
[2018-01-28] MEDS: predniSONE 20 MG TAB PO SCH (08:00)
[2018-01-28] MEDS: LISINOPRIL 10 MG TAB PO SCH (08:00)
[2018-01-28] MEDS: PRASUGREL 10 MG TAB PO SCH (08:00)
--- NOTE | 2018-01-28 08:12 | P.PN ---
Subjective Progress Note Date: 01/28/18 Principal diagnosis: Severe cardiomyopathy unknown if is ischemic or nonischemic This is a pleasant 57-year-old gentleman with a past medical history significant for hypertension, stage IV chronic kidney disease, as well as significant history of smoking, presented to the emergency room complaining of progressive dyspnea. The patient was in his usual state of health but about 3-4 days before he presented to the hospital when he started experiencing progressive exertional dyspnea associated with orthopnea and also PND. He did not report any chest pain or chest discomfort, dizziness or lightheadedness, or syncope. When the patient presented to the ER he was found to be in volume overload. He also was found to be severely anemic with a hemoglobin around 6 and receives blood. Also the creatinine was around 5 and he was in acute on chronic renal failure. The patient underwent a dialysis catheter and he underwent dialysis twice. Apparently he is known to have stage IV chronic kidney disease but he was noncompliant with his appointments. An echocardiogram was performed and revealed severe cardiomyopathy with an EF around 35%. 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 The EKG showed sinus rhythm with diffuse nonspecific ST and T wave abnormalities quite concerning for ischemia. The chest x-ray showed findings consistent with CHF. The first set of troponin came in to be mildly elevated but the second set of troponin came in to be around 5. The patient underwent a heart catheterization yesterday and that revealed severe triple- vessel CAD. He was seen and evaluated by cardiothoracic surgeons for possible coronary artery bypass grafting and the patient does not want surgery. The patient underwent yesterday successful stenting of the LAD and left circumflex using drug-eluting stents with a good angiographic results and using left ventricular assist device. Both groins are soft with mild tenderness over the left groin. No discrete hematomas noted. The patient did not have any symptoms of chest pain or chest discomfort. He is going to be transferred to selective unit for anticipation of discharge tomorrow morning. He continues to be on dual antiplatelet therapy along with a statin along with metoprolol, lisinopril, and Aldactone. The potassium is low this morning and its in process to be replaced. Objective - Vital Signs Vital signs: Vital Signs Temp 98.6 F 01/28/18 08:00 Pulse 58 L 01/28/18 08:00 Resp 22 01/28/18 08:00 BP 150/63 01/28/18 08:00 Pulse Ox 98 01/28/18 08:00 Intake & Output 01/27/18 01/28/18 01/28/18 18:59 06:59 18:59 Intake Total 504 820 Output Total 300 Balance 504 520 Weight 83.1 kg Intake: IV 504 450 Invasive Line 5 10 Sodium Chloride 0.9% 1, 375 450 000 ml @ 75 mls/hr IV . [id number] [facility] Rx#:[id number] Oral 370 Output: Urine 300 Other: Voiding Method Urinal # Voids 0 0 ABP, PAP, CO, CI - Last Documented Arterial Blood Pressure 186/71 - Constitutional General appearance: Present: no acute distress - Respiratory Respiratory: bilateral: CTA - Cardiovascular Rhythm: regular Heart sounds: normal: S1, S2 - Labs CBC & Chem 7: 01/28/18 03:50 01/28/18 03:50 Labs: Abnormal Lab Results - Last 24 Hours (Table) 01/27/18 01/27/18 01/28/18 Range/Units 06:20 13:44 03:50 RBC 2.63 L (4.30-5.90) m/uL Hgb 8.2 L (13.0-17.5) gm/dL Hct 24.5 L (39.0-53.0) % RDW 15.7 H (11.5-15.5) % Lymphocytes # 0.6 L (1.0-4.8) k/uL Sodium 135 L (137-145) mmol/L Potassium (3.5-5.1) mmol/L Carbon Dioxide 16 L (22-30) mmol/L BUN 66 H (9-20) mg/dL Creatinine 6.64 H* (0.66-1.25) mg/dL Glucose 109 H (74-99) mg/dL POC Glucose (mg/dL) 106 H (75-99) mg/dL Calcium (8.4-10.2) mg/dL 01/28/18 Range/Units 03:50 RBC (4.30-5.90) m/uL Hgb (13.0-17.5) gm/dL Hct (39.0-53.0) % RDW (11.5-15.5) % Lymphocytes # (1.0-4.8) k/uL Sodium 135 L (137-145) mmol/L Potassium 3.2 L (3.5-5.1) mmol/L Carbon Dioxide (22-30) mmol/L BUN 31 H (9-20) mg/dL Creatinine 3.60 H (0.66-1.25) mg/dL Glucose (74-99) mg/dL POC Glucose (mg/dL) (75-99) mg/dL Calcium 7.9 L (8.4-10.2) mg/dL Assessment and Plan Assessment: Assessment #1 congestive heart failure exacerbation secondary to systolic dysfunction Acute on chronic #2 severe cardiomyopathy and known if it's due to ischemic or nonischemic at this point #3 acute non-ST deviation myocardial infarction #4 hypertension #5 significant history of smoking Plan #1 continue the current medical treatment which is maximized which include aspirin, Coreg, lisinopril, and Aldactone #2 the patient was seen and evaluated by cardiothoracic surgeon and he does not want surgery to be done. #3 status post PCI of the LAD and left circumflex #4 the patient will be discharged home tomorrow morning
[2018-01-28] MEDS: diphenhydrAMINE 25 MG CAP PO PRN (12:31)
--- NOTE | 2018-01-28 16:26 | PN ---
PROGRESS NOTE DATE OF SERVICE: 01/28/2018 This 53-year-old gentleman who was admitted with acute non-ST segment elevation myocardial infarction who deferred surgery, had a cardiac cath and stenting. No chest pain. No palpitation. Hemodialysis being continued. PHYSICAL EXAM: GENERAL: Alert and oriented times three. VITAL SIGNS: Pulse is 56. Blood pressure 160/66, respiration 14, temperature 98.2, pulse ox 98% on room air. HEENT: Conjunctivae normal. Oral mucosa moist. NECK: No jugular venous distention. No carotid bruit. No lymph node enlargement. CARDIOVASCULAR: S1, S2. RESPIRATIONS: Breath sounds diminished in the bases. No rhonchi and no crackles. ABDOMEN: Soft, nontender. Legs are no edema. No swelling. CENTRAL NERVOUS SYSTEM: No focal deficits. LABORATORY DATA: WBC 6.1, hemoglobin is 8.7, sodium 134, potassium 3.6, improved to 4.1, creatinine 3.6. ASSESSMENT: 1. Acute non ST-segment elevation myocardial infarction status post cardiac catheterization, stenting of the LAD and circumflex. 2. Acute on chronic renal failure on hemodialysis. 3. End-stage renal disease stage IV baseline. 4. Severe metabolic acidosis. 5. Normocytic anemia. 6. Three-vessel coronary artery disease. 7. Chronic obstructive pulmonary disease acute exacerbation. 8. History of nicotine dependence. 9. Congestive heart failure with acute on chronic systolic dysfunction. Ejection fraction 30 to 35%. RECOMMENDATIONS AND DISCUSSION: Recommend to continue current medications, management and symptomatic treatment. Otherwise, at this time, I recommend resume the home medications. Bronchodilators. Otherwise steroids and closely follow with Cardiology. Prognosis guarded. Further recommendations to follow. MMODL / IJN: [id number] /
[2018-01-28] MEDS: ATORVASTATIN 80 MG TAB PO SCH (20:27)
[2018-01-28] MEDS: ALPRAZolam 0.5 MG TAB PO PRN (20:32)
[2018-01-29] MEDS: CALCIUM CARBONATE LIQUID 500 MG/5 ML CUP PO SCH ×3 (06:01→17:40)
[2018-01-29] MEDS: CARVEDILOL 12.5 MG TAB PO SCH ×2 (06:02→17:24)
[2018-01-29] MEDS: LEVOTHYROXINE 75 MCG TAB PO SCH (06:02)
[2018-01-29 06:06] LABS: Basophils % (A) 0 %; Eosinophils # (A) 0.1 k/uL (0-0.7); Eosinophils % (A) 1 %; HCT 25.8 % (39.0-53.0); HGB 8.1 gm/dL (13.0-17.5); Lymphocytes # (A) 0.4 k/uL (1.0-4.8); Lymphocytes % (A) 6 %; MCH 29.8 pg (25.0-35.0); MCHC 31.3 g/dL (31.0-37.0); MCV 95.1 fL (80.0-100.0); Mean Platelet Volume 7.3; Monocytes # (A) 0.5 k/uL (0-1.0); Monocytes % (A) 7 %; Neutrophils # (A) 6.1 k/uL (1.3-7.7); Neutrophils % (A) 85 %; Platelet Count 159 k/uL (150-450); RBC 2.72 m/uL (4.30-5.90); WBC 7.2 k/uL (3.8-10.6)
[2018-01-29 06:22] LABS: Calcium 8.4 mg/dL (8.4-10.2); Potassium 3.8 mmol/L (3.5-5.1)
[2018-01-29] MEDS: FORMOTEROL FUMARATE 20 MCG/2 ML NEBU INHALATION SCH ×2 (08:55→20:07)
[2018-01-29] MEDS: BUDESONIDE 1 MG/2 ML NEBU INHALATION SCH ×2 (08:55→20:07)
[2018-01-29] MEDS: IPRATROPIUM-ALBUTEROL 3 ML NEB INHALATION SCH ×4 (08:55→20:07)
--- NOTE | 2018-01-29 09:53 | P.PN ---
Subjective Patient is seen in follow-up for end-stage renal disease. He was started on hemodialysis this admission and is maintained on a Saturday schedule. His diarrhea has improved. He is noted to have severe triple-vessel disease and had stent placed to the LAD and circumflex in January 27. Denies any chest pain or shortness of breath. Ejection fraction is 30-35%. No vomiting. No edema. Vital signs are stable. General: The patient appeared well nourished and normally developed. HEENT: Head exam is unremarkable. Neck is without jugular venous distension. LUNGS: Lungs are clear to auscultation and percussion. Breath sounds decreased. HEART: Rate and Rhythm are regular. First and second heart sounds normal. No murmurs, rubs or gallops. ABDOMEN: Abdominal exam reveals normal bowel sounds. Non-tender and non- distended. No evidence of peritonitis. EXTREMITITES: No clubbing, cyanosis, or edema. Objective - Vital Signs Vital signs: Vital Signs Temp 97.3 F L 01/29/18 07:55 Pulse 64 01/29/18 09:19 Resp 18 01/29/18 07:55 BP 156/71 01/29/18 07:55 Pulse Ox 98 01/29/18 08:59 Intake & Output 01/28/18 01/29/18 01/29/18 18:59 06:59 18:59 Intake Total 580 240 Output Total 0 Balance 580 240 Weight 76 kg Intake: Oral 580 240 Output: Urine 0 Other: Voiding Method Urinal Urinal # Voids 0 2 ABP, PAP, CO, CI - Last Documented Arterial Blood Pressure 186/71 - Labs CBC & Chem 7: 01/29/18 05:33 01/29/18 05:33 Labs: Abnormal Lab Results - Last 24 Hours (Table) 01/29/18 01/29/18 Range/Units 05:33 05:33 RBC 2.72 L (4.30-5.90) m/uL Hgb 8.1 L (13.0-17.5) gm/dL Hct 25.8 L (39.0-53.0) % RDW 16.0 H (11.5-15.5) % Lymphocytes # 0.4 L (1.0-4.8) k/uL BUN 44 H (9-20) mg/dL Creatinine 5.52 H* (0.66-1.25) mg/dL Glucose 122 H (74-99) mg/dL Assessment and Plan Plan: Assessment: 1. End-stage renal disease maintained on hemodialysis on a Saturday schedule. 2. Systolic CHF with ejection fraction of 30-35%. 3. Coronary artery disease status post stenting to the LAD and circumflex on January 27. 4. Hypertension with chronic kidney disease. Controlled. 5. Hypokalemia from poor oral intake and renal losses. Magnesium replete. Improved. 6. Anemia of chronic kidney disease maintained on Aranesp. 7. Diarrhea. Improved. Plan: Hemodialysis today. Phosphorus at goal. Outpatient dialysis at [facility] has been set up. Stable to be discharged home from nephrology standpoint.
--- NOTE | 2018-01-29 14:51 | P.PN ---
Subjective Progress Note Date: 01/29/18 Principal diagnosis: Severe cardiomyopathy unknown if is ischemic or nonischemic This is a pleasant 57-year-old gentleman with a past medical history significant for hypertension, stage IV chronic kidney disease, as well as significant history of smoking, presented to the emergency room complaining of progressive dyspnea. The patient was in his usual state of health but about 3-4 days before he presented to the hospital when he started experiencing progressive exertional dyspnea associated with orthopnea and also PND. He did not report any chest pain or chest discomfort, dizziness or lightheadedness, or syncope. When the patient presented to the ER he was found to be in volume overload. He also was found to be severely anemic with a hemoglobin around 6 and receives blood. Also the creatinine was around 5 and he was in acute on chronic renal failure. The patient underwent a dialysis catheter and he underwent dialysis twice. Apparently he is known to have stage IV chronic kidney disease but he was noncompliant with his appointments. An echocardiogram was performed and revealed severe cardiomyopathy with an EF around 35%. The patient is not aware of any prior cardiac history and never seen a second class welder in the past. The EKG showed sinus rhythm with diffuse nonspecific ST and T wave abnormalities quite concerning for ischemia. The chest x-ray showed findings consistent with CHF. The first set of troponin came in to be mildly elevated but the second set of troponin came in to be around 5. The patient underwent a heart catheterization yesterday and that revealed severe triple- vessel CAD. He was seen and evaluated by cardiothoracic surgeons for possible coronary artery bypass grafting and the patient does not want surgery. The patient underwent yesterday successful stenting of the LAD and left circumflex using drug-eluting stents with a good angiographic results and using left ventricular assist device. Both groins are soft with mild tenderness over the left groin. No discrete hematomas noted. The patient did not have any symptoms of chest pain or chest discomfort. He is going to be transferred to selective unit for anticipation of discharge tomorrow morning. He continues to be on dual antiplatelet therapy along with a statin along with metoprolol, lisinopril, and Aldactone. The potassium is low this morning and its in process to be replaced. Objective - Vital Signs Vital signs: Vital Signs Temp 97.5 F L 01/29/18 12:00 Pulse 64 01/29/18 13:50 Resp 18 01/29/18 12:00 BP 145/71 01/29/18 12:00 Pulse Ox 97 01/29/18 12:00 Intake & Output 01/28/18 01/29/18 01/29/18 18:59 06:59 18:59 Intake Total 580 720 Output Total 0 Balance 580 720 Weight 76 kg Intake: Oral 580 720 Output: Urine 0 Other: Voiding Method Urinal Urinal # Voids 0 2 ABP, PAP, CO, CI - Last Documented Arterial Blood Pressure 186/71 - Constitutional General appearance: Present: no acute distress - Respiratory Respiratory: bilateral: CTA - Cardiovascular Rhythm: regular Heart sounds: normal: S1, S2 - Labs CBC & Chem 7: 01/29/18 05:33 01/29/18 05:33 Labs: Abnormal Lab Results - Last 24 Hours (Table) 01/29/18 01/29/18 Range/Units 05:33 05:33 RBC 2.72 L (4.30-5.90) m/uL Hgb 8.1 L (13.0-17.5) gm/dL Hct 25.8 L (39.0-53.0) % RDW 16.0 H (11.5-15.5) % Lymphocytes # 0.4 L (1.0-4.8) k/uL BUN 44 H (9-20) mg/dL Creatinine 5.52 H* (0.66-1.25) mg/dL Glucose 122 H (74-99) mg/dL Assessment and Plan Assessment: Assessment #1 congestive heart failure exacerbation secondary to systolic dysfunction Acute on chronic #2 severe cardiomyopathy and known if it's due to ischemic or nonischemic at this point #3 acute non-ST deviation myocardial infarction #4 hypertension #5 significant history of smoking Plan #1 continue the current medical treatment which is maximized which include aspirin, Coreg, lisinopril, and Aldactone #2 the patient was seen and evaluated by cardiothoracic surgeon and he does not want surgery to be done. #3 status post PCI of the LAD and left circumflex #4 the patient will be discharged home tomorrow morning
[2018-01-29] MEDS: LISINOPRIL 10 MG TAB PO SCH (15:40)
[2018-01-29] MEDS: SPIRONOLACTONE 25 MG TAB PO SCH (15:41)
--- NOTE | 2018-01-29 17:18 | PN ---
PROGRESS NOTE DATE OF SERVICE: 01/29/2018 This 57-year-old gentleman who was admitted with acute yjt-XY-iesweky-elevation myocardial infarction had cardiac catheterization and stenting of the LAD and circumflex. The patient apparently refused the CABG. Patient also had renal failure. Patient is receiving hemodialysis. The patient had a significant amount of diarrhea today. The patient is closely monitored. Systolic blood pressure is 140. Past medical history reviewed. REVIEW OF SYSTEMS: CARDIOVASCULAR SYSTEM: As mentioned earlier. RESPIRATORY SYSTEM: As mentioned earlier. GI: As mentioned earlier. : As mentioned earlier. NERVOUS SYSTEM: No numbness, weakness. CURRENT MEDICATIONS: Current medications are reviewed and include: 1. Tylenol 650 q.6 p.r.n. 2. Maalox 30 mL q.4 p.r.n. 3. DuoNeb q.i.d. and p.r.n. 4. Zyloprim 200 mg daily. 5. Xanax 0.5 daily. 6. Aspirin 81 mg daily. 7. Lipitor 80 mg daily. 8. Atropine. 9. Pulmicort. 10.Tums Liquid. 11.Coreg 25 mg. 12.Celexa. 13.Aranesp. 14.Benadryl. 15.Lovenox. 16.Pepcid. 17.Perforomist. 18.Synthroid. 19.Zestril. 20.Habitrol. 21.Nitrostat. 22.Effient 10 mg daily. 23.Prednisone. 24.Aldactone. 25.Ambien. PHYSICAL EXAMINATION: Patient is alert, oriented x3. Pulse 61, blood pressure 140/70, respiration 18, temperature 97.4, pulse ox 97% on room air. HEENT: Conjunctivae normal. Oral mucosa moist. NECK: No jugular venous distention. No carotid bruit. No lymph node enlargement. CARDIOVASCULAR SYSTEM: S1, S2 muffled. No S3. No S4. RESPIRATORY SYSTEM: Breath sounds diminished at the bases. No rhonchi. No crackles. ABDOMEN: Soft, non-tender. No mass palpable. LEGS: No edema. No swelling. NERVOUS SYSTEM: Higher functions as mentioned earlier. Moves all 4 limbs. No focal motor or sensory deficit. LYMPHATICS: No lymph node palpable in neck, axillae or groin. SKIN: No ulcer, rash, bleeding. LABS: WBC 7.2, hemoglobin 8.1. Sodium 138, potassium 3.8. Creatinine 5.52. ASSESSMENT: 1. Acute cfx-XX-cuhafjo-elevation myocardial infarction, status post cardiac catheterization and stenting of the left anterior descending coronary artery and circumflex. 2. Acute diarrhea of undetermined etiology. 3. Acute on chronic renal failure, on hemodialysis. 4. End-stage renal disease, stage IV, baseline. 5. Severe metabolic acidosis. 6. Normocytic anemia. 7. Three-vessel coronary artery disease. 8. Chronic obstructive pulmonary disease, acute exacerbation. 9. History of nicotine dependence. 10.Congestive heart failure with acute on chronic systolic dysfunction, ejection fraction 30% to 35%. RECOMMENDATIONS AND DISCUSSION: In this 57-year-old gentleman who presented with multiple complex medical issues, we will monitor the patient closely. Continue the current medications. Continue with symptomatic treatment. I would recommend stool for C difficile, orthostatic vitals. Continue to watch for diarrhea. If C difficile is negative, Imodium may be used. Otherwise, closely follow with Cardiology and Nephrology. As mentioned earlier, the prognosis is guarded because of the multiple complex medical issues. As mentioned earlier, the patient has underlying 3-vessel coronary artery disease. MMODL / IJN: [id number] /
[2018-01-29] MEDS: CITALOPRAM HYDROBROMIDE 20 MG TAB PO SCH (17:23)
[2018-01-29] MEDS: ASPIRIN 81 MG PO SCH (17:23)
[2018-01-29] MEDS: FAMOTIDINE 20 MG TAB PO SCH (17:23)
[2018-01-29] MEDS: ALLOPURINOL 100 MG TAB PO SCH (17:23)
[2018-01-29] MEDS: PRASUGREL 10 MG TAB PO SCH (17:23)
[2018-01-29] MEDS: ENOXAPARIN 30 MG/0.3 ML SYRINGE SQ SCH (17:24)
[2018-01-29] MEDS: NICOTINE 21MG/24HR PATCH TRANSDERM SCH (17:24)
[2018-01-29] MEDS: predniSONE 20 MG TAB PO SCH (17:24)
[2018-01-29] MEDS: ALPRAZolam 0.5 MG TAB PO PRN (18:12)
[2018-01-29] MEDS: ATORVASTATIN 80 MG TAB PO SCH (21:29)
[2018-01-29] MEDS: ACETAMINOPHEN TAB 325 MG TAB PO PRN (21:39)
[2018-01-30] MEDS: ALPRAZolam 0.5 MG TAB PO PRN (00:43)
[2018-01-30] MEDS: CARVEDILOL 12.5 MG TAB PO SCH (06:27)
[2018-01-30] MEDS: CALCIUM CARBONATE LIQUID 500 MG/5 ML CUP PO SCH ×2 (06:27→12:06)
[2018-01-30] MEDS: LEVOTHYROXINE 75 MCG TAB PO SCH (06:27)
[2018-01-30 06:34] LABS: Basophils % (A) 0 %; Eosinophils # (A) 0.2 k/uL (0-0.7); Eosinophils % (A) 3 %; HGB 8.5 gm/dL (13.0-17.5); Lymphocytes # (A) 0.3 k/uL (1.0-4.8); Lymphocytes % (A) 5 %; MCH 30.3 pg (25.0-35.0); MCHC 31.6 g/dL (31.0-37.0); MCV 95.8 fL (80.0-100.0); Mean Platelet Volume 7.3; Monocytes # (A) 0.3 k/uL (0-1.0); Monocytes % (A) 6 %; Neutrophils # (A) 4.8 k/uL (1.3-7.7); Neutrophils % (A) 85 %; Platelet Count 136 k/uL (150-450); RBC 2.82 m/uL (4.30-5.90); RDW 15.6 % (11.5-15.5); WBC 5.7 k/uL (3.8-10.6)
[2018-01-30 06:52] LABS: Potassium 3.7 mmol/L (3.5-5.1)
[2018-01-30 07:48] VITALS: RESP 16
[2018-01-30] MEDS: IPRATROPIUM-ALBUTEROL 3 ML NEB INHALATION SCH ×3 (08:35→16:34)
[2018-01-30] MEDS: FORMOTEROL FUMARATE 20 MCG/2 ML NEBU INHALATION SCH (08:35)
[2018-01-30] MEDS: BUDESONIDE 1 MG/2 ML NEBU INHALATION SCH (08:35)
[2018-01-30] MEDS: FAMOTIDINE 20 MG TAB PO SCH (08:43)
[2018-01-30] MEDS: CITALOPRAM HYDROBROMIDE 20 MG TAB PO SCH (08:43)
[2018-01-30] MEDS: SPIRONOLACTONE 25 MG TAB PO SCH (08:43)
[2018-01-30] MEDS: ASPIRIN 81 MG PO SCH (08:43)
[2018-01-30] MEDS: LISINOPRIL 10 MG TAB PO SCH (08:44)
[2018-01-30] MEDS: predniSONE 20 MG TAB PO SCH (08:44)
[2018-01-30] MEDS: PRASUGREL 10 MG TAB PO SCH (08:44)
[2018-01-30] MEDS: ENOXAPARIN 30 MG/0.3 ML SYRINGE SQ SCH (08:44)
[2018-01-30] MEDS: NICOTINE 21MG/24HR PATCH TRANSDERM SCH (08:44)
[2018-01-30] MEDS: ALLOPURINOL 100 MG TAB PO SCH (08:44)
--- NOTE | 2018-01-30 09:37 | P.PN ---
Subjective Patient is seen in follow-up for end-stage renal disease. He was started on hemodialysis this admission and is maintained on a Saturday schedule. His diarrhea has improved. He is noted to have severe triple-vessel disease and had stent placed to the LAD and circumflex in January 27. Denies any chest pain or shortness of breath. Ejection fraction is 30-35%. No vomiting. No edema. He is noted to have some orthostasis. Vital signs are stable. General: The patient appeared well nourished and normally developed. HEENT: Head exam is unremarkable. Neck is without jugular venous distension. LUNGS: Lungs are clear to auscultation and percussion. Breath sounds decreased. HEART: Rate and Rhythm are regular. First and second heart sounds normal. No murmurs, rubs or gallops. ABDOMEN: Abdominal exam reveals normal bowel sounds. Non-tender and non- distended. No evidence of peritonitis. EXTREMITITES: No clubbing, cyanosis, or edema. Objective - Vital Signs Vital signs: Vital Signs Temp 97.4 F L 01/30/18 07:42 Pulse 70 01/30/18 09:02 Resp 16 01/30/18 07:42 BP 167/74 01/30/18 07:42 Pulse Ox 97 01/30/18 08:37 Intake & Output 01/29/18 01/30/18 01/30/18 18:59 06:59 18:59 Intake Total 720 240 Balance 720 240 Weight 75 kg Intake: Oral 720 240 Other: Voiding Method Urinal # Voids 1 # Bowel Movements 1 ABP, PAP, CO, CI - Last Documented Arterial Blood Pressure 186/71 - Labs CBC & Chem 7: 01/30/18 06:14 01/30/18 06:14 Labs: Abnormal Lab Results - Last 24 Hours (Table) 01/30/18 01/30/18 Range/Units 06:14 06:14 RBC 2.82 L (4.30-5.90) m/uL Hgb 8.5 L (13.0-17.5) gm/dL Hct 27.0 L (39.0-53.0) % RDW 15.6 H (11.5-15.5) % Plt Count 136 L (150-450) k/uL Lymphocytes # 0.3 L (1.0-4.8) k/uL BUN 23 H (9-20) mg/dL Creatinine 3.64 H (0.66-1.25) mg/dL Calcium 8.0 L (8.4-10.2) mg/dL Assessment and Plan Plan: Assessment: 1. End-stage renal disease maintained on hemodialysis on a Saturday schedule. 2. Systolic CHF with ejection fraction of 30-35%. 3. Coronary artery disease status post stenting to the LAD and circumflex on January 27. 4. Hypertension with chronic kidney disease. Controlled. Noted to be orthostatic. 5. Hypokalemia from poor oral intake and renal losses. Magnesium replete. Improved. 6. Anemia of chronic kidney disease maintained on Aranesp. 7. Diarrhea. Improved. Plan: Hemodialysis tomorrow. Phosphorus at goal. Outpatient dialysis at [facility] has been set up. Dose of Coreg decreased. Lisinopril has been discontinued. If signs of orthostasis resolved, he can be discharged.
[2018-01-30 11:32] VITALS: BMI 23.1
[2018-01-30 12:12] VITALS: BP 168/74; PULSE 68; TEMP 97.6
--- NOTE | 2018-01-30 12:38 | P.PN ---
Subjective Progress Note Date: 01/30/18 Principal diagnosis: Severe cardiomyopathy unknown if is ischemic or nonischemic This is a pleasant 57-year-old gentleman with a past medical history significant for hypertension, stage IV chronic kidney disease, as well as significant history of smoking, presented to the emergency room complaining of progressive dyspnea. The patient was in his usual state of health but about 3-4 days before he presented to the hospital when he started experiencing progressive exertional dyspnea associated with orthopnea and also PND. He did not report any chest pain or chest discomfort, dizziness or lightheadedness, or syncope. When the patient presented to the ER he was found to be in volume overload. He also was found to be severely anemic with a hemoglobin around 6 and receives blood. Also the creatinine was around 5 and he was in acute on chronic renal failure. The patient underwent a dialysis catheter and he underwent dialysis twice. Apparently he is known to have stage IV chronic kidney disease but he was noncompliant with his appointments. An echocardiogram was performed and revealed severe cardiomyopathy with an EF around 35%. The patient is not aware of any prior cardiac history and never seen a project control analyst in the past. The EKG showed sinus rhythm with diffuse nonspecific ST and T wave abnormalities quite concerning for ischemia. The chest x-ray showed findings consistent with CHF. The first set of troponin came in to be mildly elevated but the second set of troponin came in to be around 5. The patient underwent a heart catheterization yesterday and that revealed severe triple- vessel CAD. He was seen and evaluated by cardiothoracic surgeons for possible coronary artery bypass grafting and the patient does not want surgery.the patient underwent successful stenting of the LAD and left circumflex. On follow-up with the patient today, he denies having any chest pain or chest discomfort or shortness of breath. He did have an episode of syncope last night but he did have significant orthostatic hypotension and we decrease the dose of lisinopril as well as Coreg. He is feeling better today. He would like to be discharged home. Objective - Vital Signs Vital signs: Vital Signs Temp 97.6 F 01/30/18 12:00 Pulse 68 01/30/18 12:00 Resp 16 01/30/18 12:00 BP 168/74 01/30/18 12:00 Pulse Ox 97 01/30/18 12:00 Intake & Output 01/29/18 01/30/18 01/30/18 18:59 06:59 18:59 Intake Total 720 720 Balance 720 720 Weight 75 kg 75 kg Intake: Oral 720 720 Other: Voiding Method Urinal # Voids 1 # Bowel Movements 1 ABP, PAP, CO, CI - Last Documented Arterial Blood Pressure 186/71 - Constitutional General appearance: Present: no acute distress - Respiratory Respiratory: bilateral: CTA - Cardiovascular Rhythm: regular Heart sounds: normal: S1, S2 - Labs CBC & Chem 7: 01/30/18 06:14 01/30/18 06:14 Labs: Abnormal Lab Results - Last 24 Hours (Table) 01/30/18 01/30/18 Range/Units 06:14 06:14 RBC 2.82 L (4.30-5.90) m/uL Hgb 8.5 L (13.0-17.5) gm/dL Hct 27.0 L (39.0-53.0) % RDW 15.6 H (11.5-15.5) % Plt Count 136 L (150-450) k/uL Lymphocytes # 0.3 L (1.0-4.8) k/uL BUN 23 H (9-20) mg/dL Creatinine 3.64 H (0.66-1.25) mg/dL Calcium 8.0 L (8.4-10.2) mg/dL Assessment and Plan Assessment: Assessment #1 congestive heart failure exacerbation secondary to systolic dysfunction Acute on chronic #2 severe cardiomyopathy and known if it's due to ischemic or nonischemic at this point #3 acute non-ST deviation myocardial infarction #4 hypertension #5 significant history of smoking Plan #1 decrease the dose of Coreg and lisinopril #2 continue dual antiplatelet therapy and statin #3 the patient can be discharged home.
[2018-01-30] MEDS ORDERED: CARVEDILOL 12.5 MG TAB PO SCH (17:30)
[2018-01-31] MEDS ORDERED: CLOPIDOGREL 75 MG TAB PO SCH (09:00)
[2018-01-31] MEDS ORDERED: LISINOPRIL 20 MG TAB PO SCH (09:00)
== END 2018-01-30 16:10 | disposition home or self-care (01) | DRG 280 ==
LOC: EC 21:14 → 6SEL 23:58 → 6ICU 01-27 12:21 → 6SEL 01-28 13:35
PROVIDERS: ADMIT Hospitalist; ATTEND Hospitalist
PROC: 5A09357 Assistance with Respiratory Ventilation, Less than 24 Consecutive Hours, Continuous Positive Airway Pressure (ICD-10-PCS; 2018-01-16)
PROC: 02HV33Z Insertion of Infusion Device into Superior Vena Cava, Percutaneous Approach (ICD-10-PCS; 2018-01-17)
PROC: 30233N1 Transfusion of Nonautologous Red Blood Cells into Peripheral Vein, Percutaneous Approach (ICD-10-PCS; 2018-01-17)
PROC: 5A1D70Z Performance of Urinary Filtration, Intermittent, Less than 6 Hours Per Day (ICD-10-PCS; 2018-01-17 12:53)
PROC: B2111ZZ Fluoroscopy of Multiple Coronary Arteries using Low Osmolar Contrast (ICD-10-PCS; 2018-01-21)
PROC: 4A023N7 Measurement of Cardiac Sampling and Pressure, Left Heart, Percutaneous Approach (ICD-10-PCS; principal; 2018-01-21 09:08)
DX: I21.4 Non-ST elevation (NSTEMI) myocardial infarction (principal); N17.0 Acute kidney failure with tubular necrosis; I50.23 Acute on chronic systolic (congestive) heart failure; J96.01 Acute respiratory failure with hypoxia; N18.6 End stage renal disease; E87.2 Acidosis; I13.2 Hypertensive heart and chronic kidney disease with heart failure and with stage 5 chronic kidney disease, or end stage renal disease; N25.81 Secondary hyperparathyroidism of renal origin; J43.9 Emphysema, unspecified; D50.9 Iron deficiency anemia, unspecified; D63.1 Anemia in chronic kidney disease; E03.9 Hypothyroidism, unspecified; E87.6 Hypokalemia; F17.210 Nicotine dependence, cigarettes, uncomplicated; I25.10 Atherosclerotic heart disease of native coronary artery without angina pectoris; I25.5 Ischemic cardiomyopathy; I95.1 Orthostatic hypotension; M10.9 Gout, unspecified; R19.7 Diarrhea, unspecified; R12 Heartburn; E83.89 Other disorders of mineral metabolism; I70.201 Unspecified atherosclerosis of native arteries of extremities, right leg; Z91.19 Patient's noncompliance with other medical treatment and regimen; Z79.82 Long term (current) use of aspirin; Z79.899 Other long term (current) drug therapy; Z79.890 Hormone replacement therapy; Z88.0 Allergy status to penicillin; Z89.202 Acquired absence of left upper limb, unspecified level
CPT/HCPCS: 36415; 36558; 71045; 76937; 77001; 80048; 80053; 80074; 82550; 82553; 83540; 83550; 83735; 83880; 84100; 84132; 84484; 85025; 85027; 85610; 85730; 86850; 86900; 86901; 86920; 90935; 93005; 93306; 93458; 93976; 94640; 94660; 94760; 96361; 96365; 96366; 99285

== ENCOUNTER 2018-03-31 08:01 | Observation (INO) | payer MEDICARE, BC ==
[2018-03-31] MEDS ORDERED: SODIUM CHLORIDE 0.9% 1,000 ML IV STA (09:34)
[2018-03-31] MEDS ORDERED: ONDANSETRON 4 MG/2 ML VIAL IVP PRN (09:40)
[2018-03-31] MEDS ORDERED: NALOXONE 0.4 MG/ML 1 ML VIAL IV PRN (09:40)
[2018-03-31] MEDS ORDERED: ACETAMINOPHEN TAB 325 MG TAB PO PRN (09:40)
--- NOTE | 2018-03-31 09:40 | ED ---
General Adult HPI - General Chief complaint: Recheck/Abnormal Lab/Rx Stated complaint: problem with port Time Seen by Provider: 03/31/18 08:22 Source: patient, RN notes reviewed Mode of arrival: ambulatory Limitations: no limitations - History of Present Illness Initial comments: Patient is a 57-year-old male who is on dialysis, presented to the emergency room today with chief complaint of a clogged dialysis catheter. Patient does admit that he went to dialysis this morning around unable to perform due to catheter being clogged. Patient states that they're advised him come here to the emergency room. He does not that he had this catheter placed approximately [address] Bautista. Patient is without is on a blood thinner because he had stents placed by Dr. Holt approximately one month ago. Patient denies any other complaints or symptoms. Does admit that he had dialysis last Saturday without any problems. - Related Data Home Medications Medication Instructions Recorded Confirmed Allopurinol [Zyloprim] 200 mg PO DAILY 01/16/18 01/16/18 Aspirin EC [Ecotrin Low Dose] 81 mg PO DAILY 01/16/18 01/16/18 Calcitriol 0.5 mcg PO DIRECTED 01/16/18 01/16/18 Citalopram Hydrobromide [CeleXA] 20 mg PO DAILY 01/16/18 01/16/18 Ergocalciferol [Vitamin D2 50,000 unit PO DIRECTED 01/16/18 01/16/18 (DRISDOL)] Levothyroxine Sodium [Synthroid] 75 mcg PO DAILY 01/16/18 01/16/18 Magnesium Oxide [Mag-Ox] 400 mg PO DAILY 01/16/18 01/16/18 Previous Rx's Medication Instructions Recorded Albuterol Sulfate [Proair Hfa] 2 puff INHALATION QID #1 inhaler 01/29/18 Atorvastatin [Lipitor] 80 mg PO HS #30 tab 01/29/18 Darbepoetin Ahn [Aranesp] 40 mcg SQ Q7D syringe 01/29/18 Famotidine [Pepcid] 20 mg PO DAILY #30 tab 01/29/18 Loperamide [Imodium] 2 mg PO QID PRN cap 01/29/18 Nicotine 21Mg/24Hr Patch [Habitrol] 1 patch TRANSDERM DAILY #30 patch 01/29/18 Spironolactone [Aldactone] 25 mg PO DAILY #30 01/29/18 predniSONE 10 mg PO DIRECTED #30 tab 01/29/18 Carvedilol [Coreg*] 12.5 mg PO AC-BID #60 tab 01/30/18 Clopidogrel [Plavix] 75 mg PO DAILY tab 01/30/18 Lisinopril [Zestril] 20 mg PO DAILY #30 tab 01/30/18 Allergies Allergy/AdvReac Type Severity Reaction Status Date / Time Penicillins Allergy Unknown Verified 03/31/18 08:08 Review of Systems ROS Statement: Those systems with pertinent positive or pertinent negative responses have been documented in the HPI. ROS Other: All systems not noted in ROS Statement are negative. 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 Past Anesthesia/Blood Transfusion Reactions: No Reported Reaction Past Psychological History: No Psychological Hx Reported Smoking Status: Current every day smoker Past Alcohol Use History: None Reported Past Drug Use History: None Reported General Exam - General Exam Comments Initial Comments: General: The patient is awake and alert, in no distress, and does not appear acutely ill. Eye: Extra-ocular movements are intact. No nystagmus. There is normal conjunctiva bilaterally. No signs of icterus. Ears, nose, mouth and throat: There are moist mucous membranes and no oral lesions. Neck: The neck is supple Cardiovascular: There is a regular rate and rhythm. No murmur, rub or gallop is appreciated. Respiratory: Lungs are clear to auscultation, respirations are non-labored, breath sounds are equal. No wheezes, stridor, rales, or rhonchi. Musculoskeletal: Normal ROM, no tenderness. Sensation intact. Neurological: A&O x 3. CN II-XII intact, There are no obvious motor or sensory deficits. Coordination appears grossly intact. Speech is normal. Skin: Skin is warm and dry and no rashes or lesions are noted. Psychiatric: Cooperative, appropriate mood & affect, normal judgment. Limitations: no limitations Course Vital Signs 03/31/18 08:06 Temperature 97.7 F Pulse Rate 67 Respiratory 20 Rate Blood Pressure 208/89 O2 Sat by Pulse 99 Oximetry Medical Decision Making - Medical Decision Making Case discussed with attending physician Dr. Singh did discuss case with Dr. Bautista and also admitting physician Dr. santos. Disposition Clinical Impression: Dialysis catheter clot or failure Disposition: ADMITTED IP TO THIS HOSP Condition: Stable Is patient prescribed a controlled substance at d/c from ED?: No Referrals: Srini Hastings MD [Primary Care Provider] - 1-2 days Time of Disposition: 09:40
[2018-03-31] MEDS ORDERED: VANCOMYCIN 1,000 MG in SODIUM CHLORIDE 0.9% 250 ML IVPB STA (10:09)
[2018-03-31] MEDS ORDERED: LIDOCAINE 1% (PF) 10MG/ML VIAL SQ ONE (11:11)
[2018-03-31] MEDS ORDERED: MIDAZOLAM 2 MG/2 ML VIAL IVP ONE (11:15)
[2018-03-31] MEDS ORDERED: SODIUM CHLORIDE 0.9% 500 ML IV ONE (11:20)
[2018-03-31 11:25] LABS: Anisocytosis Slight; Basophils # (A) 0.1 k/uL (0-0.2); Basophils % (A) 1 %; Eosinophils # (A) 0.5 k/uL (0-0.7); Eosinophils % (A) 8 %; HCT 39.6 % (39.0-53.0); HGB 12.7 gm/dL (13.0-17.5); Hypochromasia Slight; Lymphocytes # (A) 0.9 k/uL (1.0-4.8); Lymphocytes % (A) 16 %; MCH 32.1 pg (25.0-35.0); MCV 100.1 fL (80.0-100.0); Macrocytosis Slight; Mean Platelet Volume 6.7; Monocytes # (A) 0.4 k/uL (0-1.0); Monocytes % (A) 7 %; Neutrophils # (A) 3.9 k/uL (1.3-7.7); Neutrophils % (A) 67 %; Platelet Count 173 k/uL (150-450); RBC 3.96 m/uL (4.30-5.90); RDW 16.2 % (11.5-15.5); WBC 5.8 k/uL (3.8-10.6)
[2018-03-31 11:29] LABS: Albumin 3.9 g/dL (3.5-5.0); Calcium 9.3 mg/dL (8.4-10.2); Total Bilirubin 0.7 mg/dL (0.2-1.3); Total Protein 6.5 g/dL (6.3-8.2)
[2018-03-31 11:40] LABS: Partial Thromboplastin Time 22.6 sec (22.0-30.0); Prothrombin Time 9.7 sec (9.0-12.0)
[2018-03-31 12:10] LABS: Potassium 6.5 mmol/L (3.5-5.1)
--- NOTE | 2018-03-31 12:21 | XR ---
EXAMINATION TYPE: XR chest 1V portable DATE OF EXAM: 03/31/2018 COMPARISON: 01/19/2018 HISTORY: Dialysis port placement TECHNIQUE: Single frontal view of the chest is obtained. FINDINGS: The heart is enlarged and there is a right-sided dialysis catheter tip overlying the cavoa trial junction. Hyperinflation suggests COPD. No pneumothorax. There is right basilar subsegmental co nsolidation. IMPRESSION: 1. COPD with right basilar atelectasis or infiltrate 2. No pneumothorax.
[2018-03-31] MEDS ORDERED: INSULIN REGULAR 100 UNIT/ML VIAL IV ONE (12:39)
[2018-03-31] MEDS ORDERED: DEXTROSE 50%-WATER 50 ML SYRINGE IVP ONE (12:39)
[2018-03-31] MEDS ORDERED: CALCIUM CHLORIDE 1,000 MG in SODIUM CHLORIDE 0.9% 100 ML IV ONE (12:39)
[2018-03-31] MEDS ORDERED: CALCIUM CHLORIDE 1,000 MG in SODIUM CHLORIDE 0.9% 100 ML IVPB STA (12:41)
--- NOTE | 2018-03-31 13:06 | CONS ---
CONSULTATION This is a 57-year-old gentleman who is known to me from the past. Patient has history of chronic renal failure. Patient has a right IJ catheter placed in the past. Patient has a nonfunctional catheter. Patient is scheduled to have change of dialysis catheter. MEDICAL HISTORY: History of chronic renal failure. Patient is post coronary artery stent. 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 PHYSICAL EXAMINATION: NECK: Supple, trachea central. CHEST: Clear TO auscultation. ABDOMEN: Soft. Brachial and radial pulses are present. PLAN: Placement of a new catheter and removal of the old catheter. Risks and complications discussed. MMODL / IJN: [id number] /
--- NOTE | 2018-03-31 13:09 | PCN ---
PROCEDURE NOTE PREOPERATIVE DIAGNOSIS: Acute chronic renal failure marked for dialysis catheter. PROCEDURE: Placement of the 28 cm dialysis catheter, removal of the old catheter. This patient was brought to the woven label designer. Right side of the chest and neck was prepped and draped in sterile manner. Patient got 1 g of vancomycin. Catheter was prepped and drapes applied. A small incision was made to the neck area. The guide was passed under fluoroscopy. The guide was parted at the inferior vena cava. Then we made a new tunnel, then the tunnel brought to the new 28 cm dialysis catheter. The dilator was advanced and sheath was advanced on the top of the guidewire. Through the sheath we introduced the dialysis catheter and the old sheath was removed and tip of catheter in the superior vena cava, flushed with heparin saline and incisions were closed with Vicryl and nylon. Pressure dressing applied. Patient tolerated the procedure well. The old catheter was removed. Dressing was applied. Patient tolerated the procedure well. MMODL / IJN: [id number] /
[2018-03-31] MEDS: amLODIPine 10 MG TAB PO SCH (13:20)
[2018-03-31 13:48] VITALS: RESP 18
--- NOTE | 2018-03-31 13:53 | P.HPIM ---
History of Present Illness 57-year-old male who is on dialysis, presented to the emergency room today with chief complaint of a clogged dialysis catheter. Patient does admit that he went to dialysis this morning around unable to perform due to catheter being clogged. Patient states that they're advised him come here to the emergency room. He does not that he had this catheter placed approximately [address] Bautista. Patient is without is on a blood thinner because he had stents placed by Dr. Holt approximately one month ago. Patient denies any other complaints or symptoms. Does admit that he had dialysis last Saturday without any problems. Patient is being admitted for radical placement of dialysis catheter, treatment of hyperkalemia patient's potassium is 6.5 patient is on a syncopal which is being held and patient will undergo hemodialysis today and patient the is being admitted for reinitiation of hemodialysis. Patient regular hemodialysis session on Saturday and Saturday. Patient was told that his renal failure end-stage renal disease is secondary to hypertension. Review of Systems REVIEW OF SYSTEMS: CONSTITUTIONAL: No fever, no malaise, no fatigue. HEENT: No recent visual problems or hearing problems. Denied any sore throat. CARDIOVASCULAR: No chest pain, orthopnea, PND, no palpitations, no syncope. PULMONARY: No shortness of breath, no cough, no hemoptysis. GASTROINTESTINAL: No diarrhea, no nausea, no vomiting, no abdominal pain. Normoactive bowel sounds. NEUROLOGICAL: No headaches, no weakness, no numbness. HEMATOLOGICAL: Denies any bleeding or petechiae. GENITOURINARY: Denies any burning micturition, frequency, or urgency. MUSCULOSKELETAL/RHEUMATOLOGICAL: Denies any joint pain, swelling, or any muscle pain. ENDOCRINE: Denies any polyuria or polydipsia. The rest of the 14-point review of systems is negative. Past Medical History Past Medical History: Coronary Artery Disease (CAD), Heart Failure, COPD, GERD/ Reflux, Hyperlipidemia, Hypertension, Renal Disease, Thyroid Disorder Additional Past Medical History / Comment(s): Chronic kidney failure with hemodialysis on Saturday, Saturday and Fridays with last time being 03/28/18, chronic anemia, cardiomyopathy, c"blood clot in my heart years ago", hypothyroid , post op I&D L submax abscess pt had respiratory failure and was vented. 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 Past Anesthesia/Blood Transfusion Reactions: No Reported Reaction Additional Past Anesthesia/Blood Transfusion Reaction / Comment(s): Pt has received blood without reaction. Smoking Status: Former smoker - Past Family History Father Family Medical History: Diabetes Mellitus, Hypertension, Renal Disease Additional Family Medical History / Comment(s): Father was on hemodialysis Mother Family Medical History: Hypertension Medications and Allergies Home Medications Medication Instructions Recorded Confirmed Type Allopurinol [Zyloprim] 100 mg PO DAILY 01/16/18 03/31/18 History Aspirin EC [Ecotrin Low Dose] 81 mg PO DAILY 01/16/18 03/31/18 History Citalopram Hydrobromide [CeleXA] 20 mg PO DAILY 01/16/18 03/31/18 History Levothyroxine Sodium [Synthroid] 75 mcg PO DAILY 01/16/18 03/31/18 History Magnesium Oxide [Mag-Ox] 400 mg PO DAILY 01/16/18 03/31/18 History Atorvastatin [Lipitor] 80 mg PO HS #30 tab 01/29/18 03/31/18 Rx Famotidine [Pepcid] 20 mg PO DAILY #30 tab 01/29/18 03/31/18 Rx Carvedilol [Coreg*] 12.5 mg PO AC-BID #60 tab 01/30/18 03/31/18 Rx Clopidogrel [Plavix] 75 mg PO DAILY tab 01/30/18 03/31/18 Rx Lisinopril [Zestril] 20 mg PO DAILY #30 tab 01/30/18 03/31/18 Rx Auryxia 2 tab PO TID-W/MEALS 03/31/18 03/31/18 History Cholecalciferol (Vitamin D3) 2,000 unit PO DAILY 03/31/18 03/31/18 History [Vitamin D3] Furosemide [Lasix] 80 mg PO BID 03/31/18 03/31/18 History Allergies Allergy/AdvReac Type Severity Reaction Status Date / Time Penicillins Allergy Unknown Verified 03/31/18 08:08 Physical Exam Vitals: Vital Signs Temp Pulse Pulse Resp BP BP Pulse Ox 03/31/18 13:47 98.3 F 66 18 140/86 95 03/31/18 10:57 69 16 198/81 97 03/31/18 08:06 97.7 F 67 20 208/89 99 Intake and Output 03/30/18 03/31/18 03/31/18 22:59 06:59 14:59 Other: Weight 81.647 kg PHYSICAL EXAMINATION: GENERAL: The patient is alert and oriented x3, not in any acute distress. Well developed, well nourished. HEENT: Pupils are round and equally reacting to light. EOMI. No scleral icterus. No conjunctival pallor. Normocephalic, atraumatic. No pharyngeal erythema. No thyromegaly. CARDIOVASCULAR: S1 and S2 present. No murmurs, rubs, or gallops. PULMONARY: Chest is clear to auscultation, no wheezing or crackles. ABDOMEN: Soft, nontender, nondistended, normoactive bowel sounds. No palpable organomegaly. MUSCULOSKELETAL: No joint swelling or deformity. EXTREMITIES: No cyanosis, clubbing, or pedal edema. NEUROLOGICAL: Gross neurological examination did not reveal any focal deficits. SKIN: No rashes. No bleeding in the right upper chest where the hemodialysis catheter was placed. Results CBC & Chem 7: 03/31/18 11:05 03/31/18 11:05 Labs: Abnormal Lab Results - Last 24 Hours (Table) 03/31/18 03/31/18 Range/Units 11:05 11:05 RBC 3.96 L (4.30-5.90) m/uL Hgb 12.7 L (13.0-17.5) gm/dL MCV 100.1 H (80.0-100.0) fL RDW 16.2 H (11.5-15.5) % Lymphocytes # 0.9 L (1.0-4.8) k/uL Potassium 6.5 H* (3.5-5.1) mmol/L Chloride 96 L (98-107) mmol/L BUN 62 H (9-20) mg/dL Creatinine 10.06 H* (0.66-1.25) mg/dL Thrombosis Risk Factor Assmnt - Choose All That Apply Any of the Below Risk Factors Present?: Yes Each Factor Represents 1 point: Abnormal pulmonary function (COPD), Age 41-60 years Other Risk Factors: No Other congenital or acquired thrombophilia - If yes, enter type in comment: No Thrombosis Risk Factor Assessment Total Risk Factor Score: 2 Thrombosis Risk Factor Assessment Level: Low Risk Assessment and Plan Plan: -Hyperkalemia: Secondary to lisinopril which will be held and also from end- stage renal disease and patient will undergo hemodialysis. -End-stage renal disease from hypertensive nephrosclerosis hemodialysis today as mentioned above. Patient apparently makes urine and patient is on Lasix which will be continued. Patient's urinalysis catheter was replaced. -COPD without any acute exacerbation -Hypertension: Patient blood pressure is highly elevated, patient will be started on amlodipine. -Hyperlipidemia -Hypothyroidism -Metabolic bone disease and patient will be started on phosphate binders. -anemia of chronic kidney disease For above-mentioned chronic medical problems patient will be resumed and continued on appropriate home medications.
[2018-03-31] MEDS: FUROSEMIDE 80 MG TAB PO SCH (17:39)
[2018-03-31] MEDS: CARVEDILOL 12.5 MG TAB PO SCH (17:39)
[2018-03-31 19:49] VITALS: BMI 25.1
[2018-03-31] MEDS ORDERED: ATORVASTATIN 80 MG TAB PO SCH (21:00)
[2018-04-01] MEDS: FUROSEMIDE 80 MG TAB PO SCH (06:08)
[2018-04-01 06:28] VITALS: BP 174/75; PULSE 61; TEMP 98.6
[2018-04-01] MEDS ORDERED: LEVOTHYROXINE 75 MCG TAB PO SCH (06:30)
[2018-04-01] MEDS: amLODIPine 10 MG TAB PO SCH (07:48)
[2018-04-01] MEDS: CARVEDILOL 12.5 MG TAB PO SCH (07:48)
[2018-04-01 08:30] LABS: Anisocytosis Slight; Basophils % (A) 1 %; Eosinophils # (A) 0.4 k/uL (0-0.7); Eosinophils % (A) 8 %; HCT 37.1 % (39.0-53.0); HGB 11.8 gm/dL (13.0-17.5); Hypochromasia Slight; Lymphocytes # (A) 1.1 k/uL (1.0-4.8); Lymphocytes % (A) 23 %; MCH 32.1 pg (25.0-35.0); MCHC 31.6 g/dL (31.0-37.0); MCV 101.3 fL (80.0-100.0); Macrocytosis Slight; Mean Platelet Volume 6.9; Monocytes # (A) 0.3 k/uL (0-1.0); Monocytes % (A) 7 %; Neutrophils # (A) 2.8 k/uL (1.3-7.7); Neutrophils % (A) 59 %; Platelet Count 164 k/uL (150-450); RBC 3.67 m/uL (4.30-5.90); RDW 16.3 % (11.5-15.5); WBC 4.7 k/uL (3.8-10.6)
[2018-04-01 08:51] LABS: Albumin 3.2 g/dL (3.5-5.0); Calcium 9.1 mg/dL (8.4-10.2); Potassium 5.2 mmol/L (3.5-5.1); Total Bilirubin 0.6 mg/dL (0.2-1.3); Total Protein 5.6 g/dL (6.3-8.2)
[2018-04-01] MEDS ORDERED: CLOPIDOGREL 75 MG TAB PO SCH (09:00)
[2018-04-01] MEDS ORDERED: CITALOPRAM HYDROBROMIDE 20 MG TAB PO SCH (09:00)
[2018-04-01] MEDS ORDERED: ASPIRIN 81 MG PO SCH (09:00)
[2018-04-01] MEDS ORDERED: CHOLECALCIFEROL 1,000 UNIT TAB PO SCH (09:00)
[2018-04-01] MEDS ORDERED: ALLOPURINOL 100 MG TAB PO SCH (09:00)
[2018-04-01] MEDS ORDERED: LISINOPRIL 20 MG TAB PO SCH (09:00)
[2018-04-01] MEDS ORDERED: MAGNESIUM OXIDE 400 MG TAB PO SCH (09:00)
[2018-04-01] MEDS ORDERED: FAMOTIDINE 20 MG TAB PO SCH (09:00)
--- NOTE | 2018-04-01 10:30 | IR ---
EXAMINATION TYPE: IR cvc insert central tunneled DATE OF EXAM: 03/31/2018 COMPARISON: NONE HISTORY: Line placement. Fluoroscopy was provided to the referring clinician. 0.8 minutes of fluoroscopy.
--- NOTE | 2018-04-01 11:18 | P.NPCON ---
History of Present Illness - Reason for Consult end stage renal disease - History of Present Illness Reason for consultation: End-stage renal disease History of present illness: Patient is a 57-year-old male seen in consultation for end-stage renal disease. He is maintained on hemodialysis on a Saturday schedule via right chest permacath. Patient went for hemodialysis on Saturday morning but as catheter was not functioning. He subsequently came to the hospital and the catheter was exchanged by vascular surgery. He underwent hemodialysis yesterday and tolerated it well. Potassium was 6.5 on admission and is down to 5.2 today. He currently denies any chest pain or shortness of breath. Oral intake is good. No vomiting or diarrhea. No fever or chills. He did have some oozing from the catheter site yesterday which now seems to have resolved. Hemoglobin 11.8 this morning. No other complaints at this time. Vital signs are stable. General: The patient appeared well nourished and normally developed. HEENT: Head exam is unremarkable. Neck is without jugular venous distension. LUNGS: Lungs are clear to auscultation and percussion. Breath sounds decreased. HEART: Rate and Rhythm are regular. First and second heart sounds normal. No murmurs, rubs or gallops. ABDOMEN: Abdominal exam reveals normal bowel sounds. Non-tender and non- distended. No evidence of peritonitis. EXTREMITITES: No clubbing, cyanosis, or edema. Past Medical History Past Medical History: Coronary Artery Disease (CAD), Heart Failure, COPD, GERD/ Reflux, Hyperlipidemia, Hypertension, Renal Disease, Thyroid Disorder Additional Past Medical History / Comment(s): Chronic kidney failure with hemodialysis on Saturday, Saturday and Fridays with last time being 03/28/18, chronic anemia, cardiomyopathy, c"blood clot in my heart years ago", hypothyroid , post op I&D L submax abscess pt had respiratory failure and was vented. 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 Past Anesthesia/Blood Transfusion Reactions: No Reported Reaction Additional Past Anesthesia/Blood Transfusion Reaction / Comment(s): Pt has received blood without reaction. Smoking Status: Former smoker - Past Family History Father Family Medical History: Diabetes Mellitus, Hypertension, Renal Disease Additional Family Medical History / Comment(s): Father was on hemodialysis Mother Family Medical History: Hypertension Medications and Allergies Home Medications Medication Instructions Recorded Confirmed Type Allopurinol [Zyloprim] 100 mg PO DAILY 01/16/18 03/31/18 History Aspirin EC [Ecotrin Low Dose] 81 mg PO DAILY 01/16/18 03/31/18 History Citalopram Hydrobromide [CeleXA] 20 mg PO DAILY 01/16/18 03/31/18 History Levothyroxine Sodium [Synthroid] 75 mcg PO DAILY 01/16/18 03/31/18 History Magnesium Oxide [Mag-Ox] 400 mg PO DAILY 01/16/18 03/31/18 History Atorvastatin [Lipitor] 80 mg PO HS #30 tab 01/29/18 03/31/18 Rx Famotidine [Pepcid] 20 mg PO DAILY #30 tab 01/29/18 03/31/18 Rx Carvedilol [Coreg*] 12.5 mg PO AC-BID #60 tab 01/30/18 03/31/18 Rx Clopidogrel [Plavix] 75 mg PO DAILY tab 01/30/18 03/31/18 Rx Lisinopril [Zestril] 20 mg PO DAILY #30 tab 01/30/18 03/31/18 Rx Auryxia 2 tab PO TID-W/MEALS 03/31/18 03/31/18 History Cholecalciferol (Vitamin D3) 2,000 unit PO DAILY 03/31/18 03/31/18 History [Vitamin D3] Furosemide [Lasix] 80 mg PO BID 03/31/18 03/31/18 History Allergies Allergy/AdvReac Type Severity Reaction Status Date / Time Penicillins Allergy Unknown Verified 03/31/18 08:08 Physical Exam Vitals: Vital Signs Temp Pulse Resp BP Pulse Ox 04/01/18 06:25 98.6 F 61 18 174/75 97 04/01/18 00:09 156/79 03/31/18 23:00 98.7 F 66 18 179/81 96 03/31/18 16:00 66 18 03/31/18 13:47 98.3 F 66 18 140/86 95 Intake and Output 03/31/18 04/01/18 04/01/18 22:59 06:59 14:59 Intake Total 475 250 Output Total 300 Balance 175 250 Intake: Oral 475 250 Output: Urine 300 Other: Voiding Method Toilet Toilet # Voids 0 # Bowel Movements 1 0 Results - Lab Results Most recent lab results Calcium 9.1 mg/dL (8.4-10.2) 04/01/18 07:57 04/01/18 07:57 04/01/18 07:57 Assessment and Plan Plan: Assessment: 1. End-stage renal disease maintained on hemodialysis on a Saturday schedule via right chest permacath. 2. Malfunctioning dialysis catheter status post new catheter placement on March 31. 3. Hyperkalemia secondary to chronic kidney disease. Improved postdialysis. Patient was also on lisinopril. 4. Hypertension with chronic kidney disease. Blood pressures on the higher side. 5. History of coronary artery disease. Plan: Hemodialysis tomorrow. Continue to hold lisinopril. Add hydralazine 25 mg 3 times daily. Stable to be discharged home from nephrology standpoint. Thank you for the consultation. I will continue to follow the patient with you during his hospital stay.
--- NOTE | 2018-04-01 13:20 | P.DS ---
Providers Date of admission: 03/31/18 09:58 Attending physician: Dean Willoughby MD Consults: 03/31/18 09:40 Consult Physician Stat Consulting Provider: Javi Bautista Consult Reason/Comments: Dialysis catheter problem Do you want consulting provider notified?: Yes 03/31/18 11:56 Consult Physician Stat Consulting Provider: Edel Vázquez Consult Reason/Comments: dialysis Do you want consulting provider notified?: Yes Primary care physician: [facility] Course: 57-year-old male who is on dialysis, presented to the emergency room today with chief complaint of a clogged dialysis catheter. Patient does admit that he went to dialysis this morning around unable to perform due to catheter being clogged. Patient states that they're advised him come here to the emergency room. He does not that he had this catheter placed approximately [address] Bautista. Patient is without is on a blood thinner because he had stents placed by Dr. Holt approximately one month ago. Patient denies any other complaints or symptoms. Does admit that he had dialysis last Saturday without any problems. Patient is being admitted for radical placement of dialysis catheter, treatment of hyperkalemia patient's potassium is 6.5 patient is on a syncopal which is being held and patient will undergo hemodialysis today and patient the is being admitted for reinitiation of hemodialysis. Patient regular hemodialysis session on Saturday and Saturday. Patient was told that his renal failure end-stage renal disease is secondary to hypertension. 04/01/2018 Patient on hemodialysis yesterday patient is not bleeding and will be discharged today. Patient's lisinopril will be discontinued because of hyperkalemia patient was started on hydralazine by cardiology and amlodipine was added as well as today. Hydralazine dose can be increased if his blood pressure is not under control and patient will be discharged today in stable medical condition to home. Potassium improved and presently 5.2 expected to improve with the dialysis. Patient was asked to use low potassium diet. PHYSICAL EXAMINATION: GENERAL: The patient is alert and oriented x3, not in any acute distress. Well developed, well nourished. HEENT: Pupils are round and equally reacting to light. EOMI. No scleral icterus. No conjunctival pallor. Normocephalic, atraumatic. No pharyngeal erythema. No thyromegaly. CARDIOVASCULAR: S1 and S2 present. No murmurs, rubs, or gallops. PULMONARY: Chest is clear to auscultation, no wheezing or crackles. ABDOMEN: Soft, nontender, nondistended, normoactive bowel sounds. No palpable organomegaly. MUSCULOSKELETAL: No joint swelling or deformity. EXTREMITIES: No cyanosis, clubbing, or pedal edema. NEUROLOGICAL: Gross neurological examination did not reveal any focal deficits. SKIN: No rashes. No bleeding in the right upper chest where the hemodialysis catheter was placed. Assessment and Plan Plan: -Hyperkalemia: Secondary to lisinopril which was discontinued and patient on hemodialysis yesterday -End-stage renal disease secondary to cardiorenal syndrome as per nephrology Congestive heart failure chronic systolic dysfunction not in acute exacerbation patient year his 20% -COPD without any acute exacerbation -Hypertension: Patient blood pressure is highly elevated, patient was started on amlodipine and hydralazine. -Hyperlipidemia -Hypothyroidism -Metabolic bone disease and patient will be started on phosphate binders. -anemia of chronic kidney disease Patient Condition at Discharge: Stable Plan - Discharge Summary Discharge Rx Participant: No New Discharge Prescriptions: New amLODIPine [Norvasc] 10 mg PO DAILY #30 tab hydrALAZINE HCL [Apresoline] 25 mg PO TID #90 tab Continue Citalopram Hydrobromide [CeleXA] 20 mg PO DAILY Aspirin EC [Ecotrin Low Dose] 81 mg PO DAILY Levothyroxine Sodium [Synthroid] 75 mcg PO DAILY Magnesium Oxide [Mag-Ox] 400 mg PO DAILY Allopurinol [Zyloprim] 100 mg PO DAILY Atorvastatin [Lipitor] 80 mg PO HS #30 tab Famotidine [Pepcid] 20 mg PO DAILY #30 tab Clopidogrel [Plavix] 75 mg PO DAILY tab Carvedilol [Coreg*] 12.5 mg PO AC-BID #60 tab Furosemide [Lasix] 80 mg PO BID Cholecalciferol (Vitamin D3) [Vitamin D3] 2,000 unit PO DAILY Auryxia 2 tab PO TID-W/MEALS Discontinued Lisinopril [Zestril] 20 mg PO DAILY #30 tab Discharge Medication List Allopurinol [Zyloprim] 100 mg PO DAILY 01/16/18 [History] Aspirin EC [Ecotrin Low Dose] 81 mg PO DAILY 01/16/18 [History] Citalopram Hydrobromide [CeleXA] 20 mg PO DAILY 01/16/18 [History] Levothyroxine Sodium [Synthroid] 75 mcg PO DAILY 01/16/18 [History] Magnesium Oxide [Mag-Ox] 400 mg PO DAILY 01/16/18 [History] Atorvastatin [Lipitor] 80 mg PO HS #30 tab 01/29/18 [Rx] Famotidine [Pepcid] 20 mg PO DAILY #30 tab 01/29/18 [Rx] Carvedilol [Coreg*] 12.5 mg PO AC-BID #60 tab 01/30/18 [Rx] Clopidogrel [Plavix] 75 mg PO DAILY tab 01/30/18 [Rx] Auryxia 2 tab PO TID-W/MEALS 03/31/18 [History] Cholecalciferol (Vitamin D3) [Vitamin D3] 2,000 unit PO DAILY 03/31/18 [History] Furosemide [Lasix] 80 mg PO BID 03/31/18 [History] amLODIPine [Norvasc] 10 mg PO DAILY #30 tab 04/01/18 [Rx] hydrALAZINE HCL [Apresoline] 25 mg PO TID #90 tab 04/01/18 [Rx] Follow up Appointment(s)/Referral(s): Srini Hastings MD [Primary Care Provider] - 1-2 days (pt requested to make own appointment ) Patient Instructions/Handouts: Heart Failure (DC), Hemodialysis (DC)
[2018-04-01] MEDS ORDERED: hydrALAZINE HCL 25 MG TAB PO SCH (16:00)
== END 2018-04-01 13:44 | disposition home or self-care (01) ==
LOC: EC 08:01 → 4MS4W 09:58
PROVIDERS: ADMIT Internal Medicine; ATTEND Internal Medicine
DX: T82.898A Other specified complication of vascular prosthetic devices, implants and grafts, initial encounter (principal); Y71.2 Prosthetic and other implants, materials and accessory cardiovascular devices associated with adverse incidents; D63.1 Anemia in chronic kidney disease; I13.2 Hypertensive heart and chronic kidney disease with heart failure and with stage 5 chronic kidney disease, or end stage renal disease; I50.22 Chronic systolic (congestive) heart failure; E03.9 Hypothyroidism, unspecified; E78.5 Hyperlipidemia, unspecified; E87.5 Hyperkalemia; Z99.2 Dependence on renal dialysis; E88.89 Other specified metabolic disorders; J43.9 Emphysema, unspecified; I25.10 Atherosclerotic heart disease of native coronary artery without angina pectoris; N18.6 End stage renal disease; T46.4X5A Adverse effect of angiotensin-converting-enzyme inhibitors, initial encounter; K21.9 Gastro-esophageal reflux disease without esophagitis; Z95.5 Presence of coronary angioplasty implant and graft; Z83.3 Family history of diabetes mellitus; Z82.49 Family history of ischemic heart disease and other diseases of the circulatory system; Z79.02 Long term (current) use of antithrombotics/antiplatelets; Z79.82 Long term (current) use of aspirin; Z79.899 Other long term (current) drug therapy; Z87.891 Personal history of nicotine dependence
CPT/HCPCS: 99285; 36581; 77001; 80053 ×2; 85025 ×2; 85610; 85730; 71045; G0257; G0378 ×2; C1769 ×2; C1750; J2250; J3370; J2001; 90935

== ENCOUNTER 2018-05-23 20:26 | Inpatient (IN) | payer MEDICARE, BC ==
[2018-05-23 20:54] LABS: Glucose,Whole Blood 98 mg/dL (75-99)
[2018-05-23] MEDS ORDERED: ACETAMINOPHEN TAB 500 MG TAB PO STA (21:17)
[2018-05-23] MEDS ORDERED: MORPHINE SULFATE 2 MG/ML SYRINGE IVP STA (21:18)
--- NOTE | 2018-05-23 21:26 | ED ---
Syncope HPI - General Chief Complaint: Syncope Stated Complaint: Near Syncope Time Seen by Provider: 05/23/18 20:29 Source: patient, EMS Mode of arrival: ambulatory Limitations: no limitations - History of Present Illness Initial Comments: 57 year-old male patient with history significant for coronary artery disease, heart failure, COPD, hypertension, renal failure with hemodialysis, and thyroid disorder presents to the emergency department today after experiencing a syncopal episode. Patient states that he did have hemodialysis this morning and has been lightheaded with standing since then. Family member states that he did have a syncopal episode was unconscious for 2-3 minutes. States he called EMS. Upon arrival patient's blood pressure was low when he was found to have elevated temperature 103.4F. Patient states he does not feel feverish. He denies any chest pain, shortness of breath, headache, blurred vision, double vision, numbness, or tingling. Denies any cough, sore throat, nasal congestion , or ear pain. Denies any wounds. He does have a dialysis catheter to the right upper chest that does have some evidence of redness and drainage around the site. Patient denies any recent rash, abdominal pain, nausea, vomiting, diarrhea, constipation, back pain, headache, visual changes, or any other complaints. Patient state he rarely produces urine. He did receive a flu vaccination one week ago. - Related Data Home Medications Medication Instructions Recorded Confirmed Allopurinol [Zyloprim] 100 mg PO DAILY 01/16/18 05/23/18 Aspirin EC [Ecotrin Low Dose] 81 mg PO DAILY 01/16/18 05/23/18 Citalopram Hydrobromide [CeleXA] 20 mg PO DAILY 01/16/18 05/23/18 Levothyroxine Sodium [Synthroid] 75 mcg PO DAILY 01/16/18 05/23/18 Magnesium Oxide [Mag-Ox] 400 mg PO DAILY 01/16/18 05/23/18 Auryxia 2 tab PO TID-W/MEALS 03/31/18 05/23/18 Cholecalciferol (Vitamin D3) 2,000 unit PO DAILY 03/31/18 05/23/18 [Vitamin D3] Furosemide [Lasix] 80 mg PO BID 03/31/18 05/23/18 Albuterol Inhaler [Ventolin Hfa 2 puff INHALATION RT-Q6H PRN 05/23/18 05/23/18 Inhaler] busPIRone HCl [Buspar] 5 mg PO BID 05/23/18 05/23/18 Previous Rx's Medication Instructions Recorded Atorvastatin [Lipitor] 80 mg PO HS #30 tab 01/29/18 Famotidine [Pepcid] 20 mg PO DAILY #30 tab 01/29/18 Carvedilol [Coreg*] 12.5 mg PO AC-BID #60 tab 01/30/18 Clopidogrel [Plavix] 75 mg PO DAILY tab 01/30/18 amLODIPine [Norvasc] 10 mg PO DAILY #30 tab 04/01/18 hydrALAZINE HCL [Apresoline] 25 mg PO TID #90 tab 04/01/18 Allergies Allergy/AdvReac Type Severity Reaction Status Date / Time Penicillins Allergy Unknown Verified 05/23/18 21:50 Childhood Review of Systems ROS Statement: Those systems with pertinent positive or pertinent negative responses have been documented in the HPI. ROS Other: All systems not noted in ROS Statement are negative. Past Medical History Past Medical History: Coronary Artery Disease (CAD), Heart Failure, COPD, GERD/ Reflux, Hyperlipidemia, Hypertension, Renal Disease, Thyroid Disorder Additional Past Medical History / Comment(s): Chronic kidney failure with hemodialysis on Saturday, Saturday and Fridays with last time being 03/28/18, chronic anemia, cardiomyopathy, c"blood clot in my heart years ago", hypothyroid , post op I&D L submax abscess pt had respiratory failure and was vented. 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 Past Anesthesia/Blood Transfusion Reactions: No Reported Reaction Additional Past Anesthesia/Blood Transfusion Reaction / Comment(s): Pt has received blood without reaction. Past Psychological History: No Psychological Hx Reported Smoking Status: Former smoker Past Alcohol Use History: None Reported Past Drug Use History: None Reported - Past Family History Father Family Medical History: Diabetes Mellitus, Hypertension, Renal Disease Additional Family Medical History / Comment(s): Father was on hemodialysis Mother Family Medical History: Hypertension General Exam Limitations: no limitations General appearance: alert, in no apparent distress, other (This is a well- developed, well-nourished adult male patient in no acute distress. Vital signs upon presentation are temperature 103.4F oral, pulse 89, respirations 18, blood pressure 88/35, pulse ox 100% on room air.) Eye exam: Present: normal appearance, PERRL, EOMI. Absent: scleral icterus, conjunctival injection, periorbital swelling ENT exam: Present: normal exam, normal oropharynx, mucous membranes moist Respiratory exam: Present: normal lung sounds bilaterally. Absent: respiratory distress, wheezes, rales, rhonchi, stridor Cardiovascular Exam: Present: regular rate, normal rhythm, normal heart sounds. Absent: systolic murmur, diastolic murmur, rubs, gallop, clicks GI/Abdominal exam: Present: soft, normal bowel sounds. Absent: distended, tenderness, guarding, rebound, rigid Neurological exam: Present: alert, oriented X3, CN II-XII intact Psychiatric exam: Present: normal affect, normal mood Skin exam: Present: warm, dry, intact, normal color, other (Right upper chest hemodialysis catheter, there is mild surrounding erythema. There is evidence of purulent drainage from the cath site. ). Absent: rash Course Vital Signs 05/23/18 05/23/18 05/23/18 20:28 20:35 20:40 Temperature 103.4 F H Pulse Rate 89 91 Pulse Rate [ Apical] Respiratory 18 18 Rate Blood Pressure 88/35 88/35 O2 Sat by Pulse 100 90 L 86 L Oximetry 05/23/18 05/23/18 05/23/18 20:50 20:55 21:00 Temperature Pulse Rate 87 85 Pulse Rate [ 67 Apical] Respiratory 17 20 14 Rate Blood Pressure 101/84 101/84 O2 Sat by Pulse 95 97 Oximetry 05/23/18 05/23/18 05/23/18 21:10 21:20 21:30 Temperature Pulse Rate 87 81 84 Pulse Rate [ Apical] Respiratory 23 22 20 Rate Blood Pressure O2 Sat by Pulse 97 96 96 Oximetry 05/23/18 05/23/18 05/23/18 21:31 21:50 22:00 Temperature 101.7 F H Pulse Rate 81 79 Pulse Rate [ Apical] Respiratory 16 25 H Rate Blood Pressure 85/56 85/56 O2 Sat by Pulse 95 95 Oximetry 1105/23/18 05/23/18 22:30 22:38 23:00 Temperature 99.7 F H Pulse Rate 66 75 68 Pulse Rate [ Apical] Respiratory 18 Rate Blood Pressure 92/51 92/71 89/77 O2 Sat by Pulse 98 98 97 Oximetry 05/23/18 05/23/18 05/24/18 23:30 23:36 00:15 Temperature Pulse Rate 66 64 63 Pulse Rate [ Apical] Respiratory 18 16 Rate Blood Pressure 93/48 71/39 105/64 O2 Sat by Pulse 97 96 96 Oximetry 05/24/18 05/24/18 05/24/18 00:47 01:00 01:10 Temperature 97.8 F Pulse Rate 64 64 64 Pulse Rate [ Apical] Respiratory 16 Rate Blood Pressure 127/71 127/71 110/64 O2 Sat by Pulse 95 95 94 L Oximetry - Reevaluation(s) Reevaluation #1: 05/23/18 22:50 Sepsis diagnosed at 2250. Protocol initiated. EKG Findings - EKG Comments: EKG Findings:: EKG obtained at 205 shows normal sinus rhythm with a prolonged QT interval. Ventricular rate is 86, CT interval 142, QRS duration 108, QT 428 , QTC 512. No evidence of ST elevation or depression. Medical Decision Making - Medical Decision Making 57-year-old male patient presents to the emergency department today for evaluation after expressing a syncopal episode. Upon arrival patient was found to have a temperature of 103.1F. Patient reported no other symptoms other than being lightheaded throughout the day today after dialysis. He does receive dialysis on a Saturday schedule and has been following this schedule. Physical examination did reveal some erythema and drainage to the right upper chest dialysis catheter. Lungs are clear to auscultation with good air movement. Abdomen soft and nontender. Labs reviewed and did reveal white blood cell count of 11.1, hemoglobin 12.4, neutrophil count of 9.4. Sodium 132, BUN 31, creatinine 6.01, troponin 0.237. Influenza testing was negative. Chest x-ray showed no acute cardiopulmonary process. Patient rarely produces urine was not able to provide a specimen today. Patient was hypotensive in the emergency department today given the blood pressure and elevated temperature there is concern for sepsis. Patient was started on Levaquin and vancomycin with source possibly to the dialysis catheter insertion site. Blood cultures have been obtained. We did perform wound culture of the right upper chest. Patient's blood pressure did improve after receiving sepsis bolus protocol. Patient will be admitted to the hospital for IV antibiotics and further evaluation. Patient and family were updated regarding results and plan, they are agreeable. - Lab Data Result diagrams: 05/23/18 20:44 05/23/18 20:44 Lab Results 05/23/18 05/23/18 05/23/18 Range/Units 20:44 20:44 20:44 WBC 11.1 H (3.8-10.6) k/uL RBC 3.77 L (4.30-5.90) m/uL Hgb 12.4 L (13.0-17.5) gm/dL Hct 37.6 L (39.0-53.0) % MCV 99.6 (80.0-100.0) fL MCH 32.8 (25.0-35.0) pg MCHC 32.9 (31.0-37.0) g/dL RDW 14.9 (11.5-15.5) % Plt Count 133 L (150-450) k/uL Neutrophils % 85 % Neutrophils % (Manual) 78 % Band Neutrophils % 1 % Lymphocytes % 5 % Lymphocytes % (Manual) 6 % Monocytes % 8 % Monocytes % (Manual) 15 % Eosinophils % 1 % Basophils % 0 % Neutrophils # 9.4 H (1.3-7.7) k/uL Neutrophils # (Manual) 8.70 H (1.3-7.7) k/uL Lymphocytes # 0.6 L (1.0-4.8) k/uL Lymphocytes # (Manual) 0.67 L (1.0-4.8) k/uL Monocytes # 0.9 (0-1.0) k/uL Monocytes # (Manual) 1.67 H (0-1.0) k/uL Eosinophils # 0.1 (0-0.7) k/uL Basophils # 0.0 (0-0.2) k/uL Nucleated RBCs 0 (0-0) /100 WBC Manual Slide Review Performed Macrocytosis Slight PT (9.0-12.0) sec INR (<1.2) APTT (22.0-30.0) sec Sodium 132 L (137-145) mmol/L Potassium 4.5 (3.5-5.1) mmol/L Chloride 94 L (98-107) mmol/L Carbon Dioxide 23 (22-30) mmol/L Anion Gap 15 mmol/L BUN 31 H (9-20) mg/dL Creatinine 6.01 H (0.66-1.25) mg/dL Est GFR (CKD-EPI)AfAm 11 (>60 ml/min/1.73 sqM) Est GFR (CKD-EPI)NonAf 10 (>60 ml/min/1.73 sqM) Glucose 93 (74-99) mg/dL POC Glucose (mg/dL) (75-99) mg/dL POC Glu Slip Mixer ID Plasma Lactic Acid Victorino 1.6 (0.7-2.0) mmol/L Calcium 9.6 (8.4-10.2) mg/dL Magnesium 2.0 (1.6-2.3) mg/dL Total Bilirubin 1.6 H (0.2-1.3) mg/dL AST 31 (17-59) U/L ALT 31 (21-72) U/L Alkaline Phosphatase 64 (38-126) U/L Total Creatine Kinase (55-170) U/L CK-MB (CK-2) (0.0-2.4) ng/mL CK-MB (CK-2) Rel Index Troponin I (0.000-0.034) ng/mL Total Protein 6.5 (6.3-8.2) g/dL Albumin 3.9 (3.5-5.0) g/dL Influenza Type A RNA (Not Detectd) Influenza Type B (PCR) (Not Detectd) 05/23/18 05/23/18 05/23/18 Range/Units 20:44 20:44 20:50 WBC (3.8-10.6) k/uL RBC (4.30-5.90) m/uL Hgb (13.0-17.5) gm/dL Hct (39.0-53.0) % MCV (80.0-100.0) fL MCH (25.0-35.0) pg MCHC (31.0-37.0) g/dL RDW (11.5-15.5) % Plt Count (150-450) k/uL Neutrophils % % Neutrophils % (Manual) % Band Neutrophils % % Lymphocytes % % Lymphocytes % (Manual) % Monocytes % % Monocytes % (Manual) % Eosinophils % % Basophils % % Neutrophils # (1.3-7.7) k/uL Neutrophils # (Manual) (1.3-7.7) k/uL Lymphocytes # (1.0-4.8) k/uL Lymphocytes # (Manual) (1.0-4.8) k/uL Monocytes # (0-1.0) k/uL Monocytes # (Manual) (0-1.0) k/uL Eosinophils # (0-0.7) k/uL Basophils # (0-0.2) k/uL Nucleated RBCs (0-0) /100 WBC Manual Slide Review Macrocytosis PT 10.4 (9.0-12.0) sec INR 1.1 (<1.2) APTT 25.6 (22.0-30.0) sec Sodium (137-145) mmol/L Potassium (3.5-5.1) mmol/L Chloride (98-107) mmol/L Carbon Dioxide (22-30) mmol/L Anion Gap mmol/L BUN (9-20) mg/dL Creatinine (0.66-1.25) mg/dL Est GFR (CKD-EPI)AfAm (>60 ml/min/1.73 sqM) Est GFR (CKD-EPI)NonAf (>60 ml/min/1.73 sqM) Glucose (74-99) mg/dL POC Glucose (mg/dL) 98 (75-99) mg/dL POC Glu Slip Mixer ID Liss Molina Plasma Lactic Acid Victorino (0.7-2.0) mmol/L Calcium (8.4-10.2) mg/dL Magnesium (1.6-2.3) mg/dL Total Bilirubin (0.2-1.3) mg/dL AST (17-59) U/L ALT (21-72) U/L Alkaline Phosphatase (38-126) U/L Total Creatine Kinase 35 L (55-170) U/L CK-MB (CK-2) 0.2 (0.0-2.4) ng/mL CK-MB (CK-2) Rel Index 0.6 Troponin I 0.237 H* (0.000-0.034) ng/mL Total Protein (6.3-8.2) g/dL Albumin (3.5-5.0) g/dL Influenza Type A RNA (Not Detectd) Influenza Type B (PCR) (Not Detectd) 05/23/18 Range/Units 21:29 WBC (3.8-10.6) k/uL RBC (4.30-5.90) m/uL Hgb (13.0-17.5) gm/dL Hct (39.0-53.0) % MCV (80.0-100.0) fL MCH (25.0-35.0) pg MCHC (31.0-37.0) g/dL RDW (11.5-15.5) % Plt Count (150-450) k/uL Neutrophils % % Neutrophils % (Manual) % Band Neutrophils % % Lymphocytes % % Lymphocytes % (Manual) % Monocytes % % Monocytes % (Manual) % Eosinophils % % Basophils % % Neutrophils # (1.3-7.7) k/uL Neutrophils # (Manual) (1.3-7.7) k/uL Lymphocytes # (1.0-4.8) k/uL Lymphocytes # (Manual) (1.0-4.8) k/uL Monocytes # (0-1.0) k/uL Monocytes # (Manual) (0-1.0) k/uL Eosinophils # (0-0.7) k/uL Basophils # (0-0.2) k/uL Nucleated RBCs (0-0) /100 WBC Manual Slide Review Macrocytosis PT (9.0-12.0) sec INR (<1.2) APTT (22.0-30.0) sec Sodium (137-145) mmol/L Potassium (3.5-5.1) mmol/L Chloride (98-107) mmol/L Carbon Dioxide (22-30) mmol/L Anion Gap mmol/L BUN (9-20) mg/dL Creatinine (0.66-1.25) mg/dL Est GFR (CKD-EPI)AfAm (>60 ml/min/1.73 sqM) Est GFR (CKD-EPI)NonAf (>60 ml/min/1.73 sqM) Glucose (74-99) mg/dL POC Glucose (mg/dL) (75-99) mg/dL POC Glu Slip Mixer ID Plasma Lactic Acid Victorino (0.7-2.0) mmol/L Calcium (8.4-10.2) mg/dL Magnesium (1.6-2.3) mg/dL Total Bilirubin (0.2-1.3) mg/dL AST (17-59) U/L ALT (21-72) U/L Alkaline Phosphatase (38-126) U/L Total Creatine Kinase (55-170) U/L CK-MB (CK-2) (0.0-2.4) ng/mL CK-MB (CK-2) Rel Index Troponin I (0.000-0.034) ng/mL Total Protein (6.3-8.2) g/dL Albumin (3.5-5.0) g/dL Influenza Type A RNA Not Detected (Not Detectd) Influenza Type B (PCR) Not Detected (Not Detectd) - Radiology Data Radiology results: report reviewed, image reviewed Two-view x-ray of the chest is obtained. There is no heart failure foot pneumonic infiltrate. Costophrenic angles are clear. There is right central venous catheter tip of the right atrium. Bony thorax is intact. There is no pleural effusion. Impression by Dr. Ibanez shows no cardiopulmonary disease. No change. Disposition Clinical Impression: Sepsis Narrative: Possible dialysis catheter infection Disposition: ADMITTED IP TO THIS HOSP Condition: Serious Decision to Admit Reason: Admit from EC Decision Date: 05/23/18 Decision Time: 23:04
[2018-05-23 21:33] LABS: Basophils % (A) 0 %; Eosinophils # (A) 0.1 k/uL (0-0.7); Eosinophils % (A) 1 %; HCT 37.6 % (39.0-53.0); HGB 12.4 gm/dL (13.0-17.5); Lymphocytes # (A) 0.6 k/uL (1.0-4.8); Lymphocytes % (A) 5 %; MCH 32.8 pg (25.0-35.0); MCHC 32.9 g/dL (31.0-37.0); MCV 99.6 fL (80.0-100.0); Macrocytosis Slight; Mean Platelet Volume 6.7; Monocytes # (A) 0.9 k/uL (0-1.0); Monocytes % (A) 8 %; Neutrophils # (A) 9.4 k/uL (1.3-7.7); Neutrophils % (A) 85 %; Platelet Count 133 k/uL (150-450); RBC 3.77 m/uL (4.30-5.90); RDW 14.9 % (11.5-15.5); WBC 11.1 k/uL (3.8-10.6)
[2018-05-23 21:42] LABS: Albumin 3.9 g/dL (3.5-5.0); Calcium 9.6 mg/dL (8.4-10.2); Potassium 4.5 mmol/L (3.5-5.1); Total Bilirubin 1.6 mg/dL (0.2-1.3); Total Protein 6.5 g/dL (6.3-8.2)
[2018-05-23 21:50] LABS: INR 1.1 (<1.2); Partial Thromboplastin Time 25.6 sec (22.0-30.0); Prothrombin Time 10.4 sec (9.0-12.0)
--- NOTE | 2018-05-23 21:58 | XR ---
EXAMINATION TYPE: XR chest 2V DATE OF EXAM: 05/23/2018 COMPARISON: 03/31/2018 HISTORY: Respiratory failure TECHNIQUE: Frontal and lateral views of the chest are obtained. FINDINGS: There is no heart failure nor confluent pneumonic infiltrate. Costophrenic angles are zelalem r. There is right central venous catheter with the tip in the right atrium. Bony thorax is intact. Th ere is no pleural effusion IMPRESSION: No cardiopulmonary disease. No change.
[2018-05-23 22:00] LABS: Creatine Kinase MB 0.2 ng/mL (0.0-2.4)
[2018-05-23] MEDS ORDERED: SODIUM CHLORIDE 0.9% 500 ML 500 ML IV ONE (22:17)
[2018-05-23 22:19] LABS: Troponin I 0.237 ng/mL (0.000-0.034)
[2018-05-23 22:28] LABS: Band Neutrophils % 1 %; Lymphocytes # (M) 0.67 k/uL (1.0-4.8); Monocytes # (M) 1.67 k/uL (0-1.0); Neutrophils % (M) 78 %; Nucleated Red Blood Cells 0 /100 WBC (0-0); Total Cells Counted 100
[2018-05-23] MEDS ORDERED: SODIUM CHLORIDE 0.9% 1,800 ML IV ONE (22:49)
[2018-05-23] MEDS ORDERED: LEVOFLOXACIN 750MG-D5W PMX 750 MG in DEXTROSE/WATER 1 150ML.BAG IVPB STA (22:50)
[2018-05-23] MEDS ORDERED: NALOXONE 0.4 MG/ML 1 ML VIAL IV PRN (22:50)
[2018-05-23] MEDS ORDERED: VANCOMYCIN IV PER PHARMACY 1 EACH MISC MISCELLANE PRN (22:50)
[2018-05-23] MEDS ORDERED: VANCOMYCIN 1,250 MG in SODIUM CHLORIDE 0.9% 250 ML IVPB STA (22:51)
[2018-05-23] MEDS ORDERED: MORPHINE SULFATE 4 MG/ML SYRINGE IV PRN (22:58)
[2018-05-23] MEDS ORDERED: ACETAMINOPHEN TAB 325 MG TAB PO PRN (22:58)
[2018-05-24] MEDS ORDERED: SODIUM CHLORIDE 0.9% 1,000 ML IV ONE (00:08)
[2018-05-24] MEDS ORDERED: ALBUTEROL NEBULIZED 2.5 MG/3 ML INHALATION PRN (01:26)
[2018-05-24] MEDS ORDERED: LEVOFLOXACIN 750MG-D5W PMX 750 MG in DEXTROSE/WATER 1 150ML.BAG IVPB SCH (01:45)
[2018-05-24 01:56] LABS: Glucose,Whole Blood 76 mg/dL (75-99)
[2018-05-24 02:53] LABS: Basophils % (A) 0 %; Eosinophils % (A) 0 %; HCT 34.8 % (39.0-53.0); HGB 10.9 gm/dL (13.0-17.5); Hypochromasia Slight; Lymphocytes # (A) 0.5 k/uL (1.0-4.8); Lymphocytes % (A) 5 %; MCH 33.2 pg (25.0-35.0); MCHC 31.3 g/dL (31.0-37.0); MCV 106.2 fL (80.0-100.0); Macrocytosis Moderate; Mean Platelet Volume 6.6; Monocytes # (A) 0.5 k/uL (0-1.0); Monocytes % (A) 5 %; Neutrophils # (A) 9.6 k/uL (1.3-7.7); Neutrophils % (A) 88 %; Platelet Count 115 k/uL (150-450); RBC 3.28 m/uL (4.30-5.90); RDW 15.4 % (11.5-15.5); WBC 10.9 k/uL (3.8-10.6)
[2018-05-24 03:11] LABS: Albumin 3.2 g/dL (3.5-5.0); Calcium 8.7 mg/dL (8.4-10.2); Potassium 4.7 mmol/L (3.5-5.1); Total Bilirubin 1.3 mg/dL (0.2-1.3); Total Protein 5.5 g/dL (6.3-8.2)
[2018-05-24] MEDS: SODIUM CHLORIDE 0.9% 500 ML 500 ML IV SCH (06:10)
[2018-05-24] MEDS: LEVOTHYROXINE 75 MCG TAB PO SCH (06:10)
[2018-05-24] MEDS: CARVEDILOL 12.5 MG TAB PO SCH ×2 (08:26→17:30)
[2018-05-24] MEDS: SEVELAMER 800 MG TAB PO SCH ×3 (08:26→17:30)
[2018-05-24] MEDS ORDERED: hydrALAZINE HCL 25 MG TAB PO SCH (09:00)
[2018-05-24] MEDS ORDERED: amLODIPine 10 MG TAB PO SCH (09:00)
--- NOTE | 2018-05-24 10:11 | P.HPIM ---
History of Present Illness 57-year-old gentleman with the and seasonal he sees recently was initiated on hemodialysis has a right unmatured AV fistula, right subclavian dialysis catheter came in with complaints of fever has been going on for last couple days. Patient is found to have bacteremia with the Staphylococcus aureus. Chest x-ray did not show any pneumonic process patient doesn't make any urine patient is believed to have cardiorenal syndrome. Patient was hypotensive was subsequently admitted to ICU not on any pressor support at this time IV fluids were discontinued because of his end-stage renal failure. Patient blood pressure is fairly doing well now. Amlodipine and hydralazine are being held continue Coreg. Repeat blood cultures will be obtained for today and tomorrow infectious disease will be consulted patient was also started on levofloxacin that will be discontinued. Patient is feeling much better compared to yesterday. Patient denied any cough dysuria Review of Systems REVIEW OF SYSTEMS: CONSTITUTIONAL: As mentioned in HPI HEENT: No recent visual problems or hearing problems. Denied any sore throat. CARDIOVASCULAR: No chest pain, orthopnea, PND, no palpitations, no syncope. PULMONARY: No shortness of breath, no cough, no hemoptysis. GASTROINTESTINAL: No diarrhea, no nausea, no vomiting, no abdominal pain. Normoactive bowel sounds. NEUROLOGICAL: No headaches, no weakness, no numbness. HEMATOLOGICAL: Denies any bleeding or petechiae. GENITOURINARY: Denies any burning micturition, frequency, or urgency. MUSCULOSKELETAL/RHEUMATOLOGICAL: Denies any joint pain, swelling, or any muscle pain. ENDOCRINE: Denies any polyuria or polydipsia. The rest of the 14-point review of systems is negative. Past Medical History Past Medical History: Coronary Artery Disease (CAD), Heart Failure, COPD, GERD/ Reflux, Hyperlipidemia, Hypertension, Renal Disease, Thyroid Disorder Additional Past Medical History / Comment(s): Chronic kidney failure with hemodialysis on Saturday, Saturday and Fridays with last time being 03/28/18, chronic anemia, cardiomyopathy, c"blood clot in my heart years ago", hypothyroid , post op I&D L submax abscess pt had respiratory failure and was vented. 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 Past Anesthesia/Blood Transfusion Reactions: No Reported Reaction Additional Past Anesthesia/Blood Transfusion Reaction / Comment(s): Pt has received blood without reaction. Past Psychological History: No Psychological Hx Reported Smoking Status: Former smoker Past Alcohol Use History: None Reported Past Drug Use History: None Reported - Past Family History Father Family Medical History: Diabetes Mellitus, Hypertension, Renal Disease Additional Family Medical History / Comment(s): Father was on hemodialysis Mother Family Medical History: Hypertension Medications and Allergies Home Medications Medication Instructions Recorded Confirmed Type Allopurinol [Zyloprim] 100 mg PO DAILY 01/16/18 05/23/18 History Aspirin EC [Ecotrin Low Dose] 81 mg PO DAILY 01/16/18 05/23/18 History Citalopram Hydrobromide [CeleXA] 20 mg PO DAILY 01/16/18 05/23/18 History Levothyroxine Sodium [Synthroid] 75 mcg PO DAILY 01/16/18 05/23/18 History Magnesium Oxide [Mag-Ox] 400 mg PO DAILY 01/16/18 05/23/18 History Atorvastatin [Lipitor] 80 mg PO HS #30 tab 01/29/18 05/23/18 Rx Famotidine [Pepcid] 20 mg PO DAILY #30 tab 01/29/18 05/23/18 Rx Carvedilol [Coreg*] 12.5 mg PO AC-BID #60 tab 01/30/18 05/23/18 Rx Clopidogrel [Plavix] 75 mg PO DAILY tab 01/30/18 05/23/18 Rx Auryxia 2 tab PO TID-W/MEALS 03/31/18 05/23/18 History Cholecalciferol (Vitamin D3) 2,000 unit PO DAILY 03/31/18 05/23/18 History [Vitamin D3] Furosemide [Lasix] 80 mg PO BID 03/31/18 05/23/18 History amLODIPine [Norvasc] 10 mg PO DAILY #30 tab 04/01/18 05/23/18 Rx hydrALAZINE HCL [Apresoline] 25 mg PO TID #90 tab 04/01/18 05/23/18 Rx Albuterol Inhaler [Ventolin Hfa 2 puff INHALATION RT-Q6H PRN 05/23/18 05/23/18 History Inhaler] busPIRone HCl [Buspar] 5 mg PO BID 05/23/18 05/23/18 History Allergies Allergy/AdvReac Type Severity Reaction Status Date / Time Penicillins Allergy Unknown Verified 05/23/18 21:50 Childhood Physical Exam Vitals: Vital Signs Temp Pulse Pulse Resp BP BP Pulse Ox 05/24/18 08:00 99.5 F 84 22 122/74 98 05/24/18 07:58 100 05/24/18 04:00 98.7 F 87 18 107/67 98 05/24/18 01:55 98.4 F 80 20 131/74 98 05/24/18 01:10 64 110/64 94 L 05/24/18 01:00 64 127/71 95 05/24/18 00:47 97.8 F 64 16 127/71 95 05/24/18 00:15 63 16 105/64 96 05/23/18 23:36 64 18 71/39 96 05/23/18 23:30 66 93/48 97 05/23/18 23:00 68 89/77 97 05/23/18 22:38 99.7 F H 75 18 92/71 98 05/23/18 22:30 66 92/51 98 05/23/18 22:00 79 25 H 85/56 95 05/23/18 21:50 81 16 85/56 95 05/23/18 21:31 101.7 F H 05/23/18 21:30 84 20 96 05/23/18 21:20 81 22 96 05/23/18 21:10 87 23 97 05/23/18 21:00 85 14 101/84 97 05/23/18 20:55 67 20 05/23/18 20:50 87 17 101/84 95 05/23/18 20:40 91 18 88/35 86 L 05/23/18 20:35 90 L 05/23/18 20:28 103.4 F H 89 18 88/35 100 Intake and Output 05/23/18 05/24/18 05/24/18 22:59 06:59 14:59 Intake Total 80 Output Total 0 Balance 80 Intake: IV 80 Sodium Chloride 0.9% 500 80 ml 500 ml @ 20 mls/hr IV .Q24H [facility] Rx#:[id number] Output: Urine 0 Other: Voiding Method Urinal Weight 88.904 kg 87.2 kg PHYSICAL EXAMINATION: GENERAL: The patient is alert and oriented x3, not in any acute distress. Well developed, well nourished. HEENT: Pupils are round and equally reacting to light. EOMI. No scleral icterus. No conjunctival pallor. Normocephalic, atraumatic. No pharyngeal erythema. No thyromegaly. CARDIOVASCULAR: S1 and S2 present. No murmurs, rubs, or gallops. PULMONARY: Chest is clear to auscultation, no wheezing or crackles. ABDOMEN: Soft, nontender, nondistended, normoactive bowel sounds. No palpable organomegaly. MUSCULOSKELETAL: No joint swelling or deformity. EXTREMITIES: No cyanosis, clubbing, or pedal edema. 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 SKIN: Right subclavian dialysis catheter site does not appear to be infected Results CBC & Chem 7: 05/24/18 02:16 05/24/18 02:16 Labs: Abnormal Lab Results - Last 24 Hours (Table) 05/23/18 05/23/18 05/23/18 Range/Units 20:44 20:44 20:44 WBC 11.1 H (3.8-10.6) k/uL RBC 3.77 L (4.30-5.90) m/uL Hgb 12.4 L (13.0-17.5) gm/dL Hct 37.6 L (39.0-53.0) % MCV (80.0-100.0) fL Plt Count 133 L (150-450) k/uL Neutrophils # 9.4 H (1.3-7.7) k/uL Neutrophils # (Manual) 8.70 H (1.3-7.7) k/uL Lymphocytes # 0.6 L (1.0-4.8) k/uL Lymphocytes # (Manual) 0.67 L (1.0-4.8) k/uL Monocytes # (Manual) 1.67 H (0-1.0) k/uL Sodium 132 L (137-145) mmol/L Chloride 94 L (98-107) mmol/L Carbon Dioxide (22-30) mmol/L BUN 31 H (9-20) mg/dL Creatinine 6.01 H (0.66-1.25) mg/dL Glucose (74-99) mg/dL Total Bilirubin 1.6 H (0.2-1.3) mg/dL Total Creatine Kinase 35 L (55-170) U/L Troponin I 0.237 H* (0.000-0.034) ng/mL Total Protein (6.3-8.2) g/dL Albumin (3.5-5.0) g/dL 05/24/18 05/24/18 05/24/18 Range/Units 02:16 02:16 02:16 WBC 10.9 H (3.8-10.6) k/uL RBC 3.28 L (4.30-5.90) m/uL Hgb 10.9 L (13.0-17.5) gm/dL Hct 34.8 L (39.0-53.0) % MCV 106.2 H D (80.0-100.0) fL Plt Count 115 L (150-450) k/uL Neutrophils # 9.6 H (1.3-7.7) k/uL Neutrophils # (Manual) (1.3-7.7) k/uL Lymphocytes # 0.5 L (1.0-4.8) k/uL Lymphocytes # (Manual) (1.0-4.8) k/uL Monocytes # (Manual) (0-1.0) k/uL Sodium 133 L (137-145) mmol/L Chloride (98-107) mmol/L Carbon Dioxide 20 L (22-30) mmol/L BUN 35 H (9-20) mg/dL Creatinine 6.06 H (0.66-1.25) mg/dL Glucose 101 H (74-99) mg/dL Total Bilirubin (0.2-1.3) mg/dL Total Creatine Kinase (55-170) U/L Troponin I 0.224 H* (0.000-0.034) ng/mL Total Protein 5.5 L (6.3-8.2) g/dL Albumin 3.2 L (3.5-5.0) g/dL 05/24/18 Range/Units 08:21 WBC (3.8-10.6) k/uL RBC (4.30-5.90) m/uL Hgb (13.0-17.5) gm/dL Hct (39.0-53.0) % MCV (80.0-100.0) fL Plt Count (150-450) k/uL Neutrophils # (1.3-7.7) k/uL Neutrophils # (Manual) (1.3-7.7) k/uL Lymphocytes # (1.0-4.8) k/uL Lymphocytes # (Manual) (1.0-4.8) k/uL Monocytes # (Manual) (0-1.0) k/uL Sodium (137-145) mmol/L Chloride (98-107) mmol/L Carbon Dioxide (22-30) mmol/L BUN (9-20) mg/dL Creatinine (0.66-1.25) mg/dL Glucose (74-99) mg/dL Total Bilirubin (0.2-1.3) mg/dL Total Creatine Kinase (55-170) U/L Troponin I 0.371 H* (0.000-0.034) ng/mL Total Protein (6.3-8.2) g/dL Albumin (3.5-5.0) g/dL Microbiology - Last 24 Hours (Table) 05/23/18 20:44 Blood Culture Gram Stain - Preliminary Blood 05/23/18 20:44 Blood Culture - Final Blood Thrombosis Risk Factor Assmnt - Choose All That Apply Any of the Below Risk Factors Present?: No Other Risk Factors: No Thrombosis Risk Factor Assessment Level: Very Low Risk Assessment and Plan Plan: Sepsis: Secondary to bacteremia from possible infected dialysis catheter. Ideally this dialysis catheter need to come out because of his vascular disease will repeat the blood cultures are bacteremia clears, dialysis catheter will remain in place we'll repeat blood culture today and tomorrow infectious disease will be consulted. Continue vancomycin. -End-stage renal disease hemodialysis dependent, metabolic bone disease secondary to his renal disease: Nephrology was consulted -Hypertension: Presently hypotensive amlodipine and hydralazine are being held and hypotension is secondary to sepsis -Sclerae start failure chronic systolic dysfunction ejection fraction of 20% without any acute exacerbation -COPD without any acute exacerbation -Hyperlipidemia -Hypothyroidism -anemia of chronic kidney disease For above-mentioned chronic stable medical problems patient will be resumed and continued on her appropriate home medications except those mentioned above
[2018-05-24] MEDS: HYDROcodone/APAP 5-325MG 1 EACH TAB PO PRN ×2 (10:12→17:30)
[2018-05-24] MEDS: MAGNESIUM OXIDE 400 MG TAB PO SCH (10:13)
[2018-05-24] MEDS: CITALOPRAM HYDROBROMIDE 20 MG TAB PO SCH (10:13)
[2018-05-24] MEDS: ASPIRIN 81 MG PO SCH (10:13)
[2018-05-24] MEDS: ALLOPURINOL 100 MG TAB PO SCH (10:14)
[2018-05-24] MEDS: FAMOTIDINE 20 MG TAB PO SCH (10:14)
[2018-05-24] MEDS: CHOLECALCIFEROL 1,000 UNIT TAB PO SCH (10:14)
[2018-05-24] MEDS: CLOPIDOGREL 75 MG TAB PO SCH (10:14)
[2018-05-24] MEDS: busPIRone HCl 5 MG TAB PO SCH ×2 (10:14→20:26)
[2018-05-24] MEDS: FUROSEMIDE 40 MG TAB PO SCH ×2 (10:26→20:27)
--- NOTE | 2018-05-24 10:41 | P.NPCON ---
History of Present Illness - Reason for Consult Consult date: 05/24/18 end stage renal disease - Chief Complaint ESRD with MEF HD and Bacteremia - History of Present Illness This is a 57-year-old male with ESRD, on dialysis with a permacath on the right IJ who came in because of confusion and not feeling well and was found to have bacteremia with gram positives growing. He has been given vancomycin. Currently he is awake alert somewhat unreliable as far as history is concerned. Currently no fever chills. While signs are stable. Denies any other complaints He is on dialysis the last 3 months with a permacath. He has a fistula that was placed on the right upper arm but it is very immature and can hardly be felt. He is known with coronary artery disease COPD hypertension cardiomyopathy. As a young child he losses left arm in a washing machine. His father was on dialysis. Rest of the review of systems unremarkable. Past Medical History Past Medical History: Coronary Artery Disease (CAD), Heart Failure, COPD, GERD/ Reflux, Hyperlipidemia, Hypertension, Renal Disease, Thyroid Disorder Additional Past Medical History / Comment(s): Chronic kidney failure with hemodialysis on Saturday, Saturday and Fridays with last time being 03/28/18, chronic anemia, cardiomyopathy, c"blood clot in my heart years ago", hypothyroid , post op I&D L submax abscess pt had respiratory failure and was vented. 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 Past Anesthesia/Blood Transfusion Reactions: No Reported Reaction Additional Past Anesthesia/Blood Transfusion Reaction / Comment(s): Pt has received blood without reaction. Past Psychological History: No Psychological Hx Reported Smoking Status: Former smoker Past Alcohol Use History: None Reported Past Drug Use History: None Reported - Past Family History Father Family Medical History: Diabetes Mellitus, Hypertension, Renal Disease Additional Family Medical History / Comment(s): Father was on hemodialysis Mother Family Medical History: Hypertension Medications and Allergies Home Medications Medication Instructions Recorded Confirmed Type Allopurinol [Zyloprim] 100 mg PO DAILY 01/16/18 05/23/18 History Aspirin EC [Ecotrin Low Dose] 81 mg PO DAILY 01/16/18 05/23/18 History Citalopram Hydrobromide [CeleXA] 20 mg PO DAILY 01/16/18 05/23/18 History Levothyroxine Sodium [Synthroid] 75 mcg PO DAILY 01/16/18 05/23/18 History Magnesium Oxide [Mag-Ox] 400 mg PO DAILY 01/16/18 05/23/18 History Atorvastatin [Lipitor] 80 mg PO HS #30 tab 01/29/18 05/23/18 Rx Famotidine [Pepcid] 20 mg PO DAILY #30 tab 01/29/18 05/23/18 Rx Carvedilol [Coreg*] 12.5 mg PO AC-BID #60 tab 01/30/18 05/23/18 Rx Clopidogrel [Plavix] 75 mg PO DAILY tab 01/30/18 05/23/18 Rx Auryxia 2 tab PO TID-W/MEALS 03/31/18 05/23/18 History Cholecalciferol (Vitamin D3) 2,000 unit PO DAILY 03/31/18 05/23/18 History [Vitamin D3] Furosemide [Lasix] 80 mg PO BID 03/31/18 05/23/18 History amLODIPine [Norvasc] 10 mg PO DAILY #30 tab 04/01/18 05/23/18 Rx hydrALAZINE HCL [Apresoline] 25 mg PO TID #90 tab 04/01/18 05/23/18 Rx Albuterol Inhaler [Ventolin Hfa 2 puff INHALATION RT-Q6H PRN 05/23/18 05/23/18 History Inhaler] busPIRone HCl [Buspar] 5 mg PO BID 05/23/18 05/23/18 History Allergies Allergy/AdvReac Type Severity Reaction Status Date / Time Penicillins Allergy Unknown Verified 05/23/18 21:50 Childhood Physical Exam Vitals: Vital Signs Temp Pulse Pulse Resp BP BP Pulse Ox 05/24/18 08:00 99.5 F 84 22 122/74 98 05/24/18 07:58 100 05/24/18 04:00 98.7 F 87 18 107/67 98 05/24/18 01:55 98.4 F 80 20 131/74 98 05/24/18 01:10 64 110/64 94 L 05/24/18 01:00 64 127/71 95 05/24/18 00:47 97.8 F 64 16 127/71 95 05/24/18 00:15 63 16 105/64 96 05/23/18 23:36 64 18 71/39 96 05/23/18 23:30 66 93/48 97 05/23/18 23:00 68 89/77 97 05/23/18 22:38 99.7 F H 75 18 92/71 98 05/23/18 22:30 66 92/51 98 05/23/18 22:00 79 25 H 85/56 95 05/23/18 21:50 81 16 85/56 95 05/23/18 21:31 101.7 F H 05/23/18 21:30 84 20 96 05/23/18 21:20 81 22 96 05/23/18 21:10 87 23 97 05/23/18 21:00 85 14 101/84 97 05/23/18 20:55 67 20 05/23/18 20:50 87 17 101/84 95 05/23/18 20:40 91 18 88/35 86 L 05/23/18 20:35 90 L 05/23/18 20:28 103.4 F H 89 18 88/35 100 Intake and Output 05/23/18 05/24/18 05/24/18 22:59 06:59 14:59 Intake Total 80 Output Total 0 Balance 80 Intake: IV 80 Sodium Chloride 0.9% 500 80 ml 500 ml @ 20 mls/hr IV .Q24H [facility] Rx#:[id number] Output: Urine 0 Other: Voiding Method Urinal Weight 88.904 kg 87.2 kg On examination is awake alert oriented comfortable. HEENT exam no JVP neck is supple no facial asymmetry Lungs are clear to auscultation good air entry bilaterally Heart sounds are unremarkable for any murmur rub gallop Abdomen soft nontender The exit site of the peak cath on the right has minimal discharge on the dressing and the area around the tonsil is slightly inflamed. Extreme exam reveals no edema Neurologically awake alert oriented. Results - Lab Results Most recent lab results Calcium 8.7 mg/dL (8.4-10.2) 05/24/18 02:16 Magnesium 2.0 mg/dL (1.6-2.3) 05/23/18 20:44 05/24/18 02:16 05/24/18 02:16 Assessment and Plan Assessment: Impression 1. ESRD secondary to nephrosclerosis on hemodialysis Saturday at the [facility] unit permacath in the right IJ. 2. Gram-positive bacteremia with possible exit site and tunnel infection of the permacath 3. Hypertensive nephrosclerosis. 4. 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 5. History of cardiac catheterization on 02/05/2018 with severe triple-vessel disease cardio myopathy. Recommendation at the time was medical management and surgical evaluation 6. Cardiac catheterization repeated 02/28/2018, stenting of the LAD proximal left circumflex. Recommendation. 1. Consult Dr. Bautista vascular surgeon for evaluation of removal of permacath and reinsertion after confirmation of a negative blood culture. 2. Maintain vancomycin per ID recommendation. 3. Daily labs to ensure potassium is normal. 4. Lasix 80 mg IV every 12
--- NOTE | 2018-05-24 13:43 | CONS ---
DATE OF CONSULTATION: 05/24/2018 Mr. Barry is well known to me from the past. He is a 57-year-old gentleman with history of end-stage kidney disease. He is on dialysis three times a week. He came with confusion and not feeling well and was found to have a bacteremia with gram - positive growing and he has been on vancomycin. Patient's past medical history includes history of congestive heart failure, hyperlipidemia, hypertension, chronic kidney disease. PAST HISTORY: Patient had a dialysis catheter placed in the past. He had a traumatic amputation of the left forearm in the past. Patient is been evaluated for creation of fistula. He has very small cephalic and basilic vein. We discussed about possible peritoneal dialysis, but he is relunctant to go for peritoneal dialysis. At this point, we have very few options left for dialysis. PHYSICAL EXAMINATION: Patient was seen in his room. His neck is supple, trachea central. Chest is clear to auscultation. Abdomen is soft. Brachial radial pulses are present. Patient has a catheter on the right IJ site. There is slight redness noted and some minimal drainage noted. Blood culture came back to be positive. PLAN: We will remove the catheter and wait for 48 hours. Then he may need a replacement of the catheter. Will follow with you. MMODL / IJN: [id number] / ABHINAV
[2018-05-24] MEDS ORDERED: LIDOCAINE 1% INJ 10MG/ML (20 ML MDV) ONE (16:20)
--- NOTE | 2018-05-24 16:55 | CONS ---
CONSULTATION Mr. Boogie is a 57-year-old gentleman who is seen for cardiac evaluation and abnormal troponin. Patient's medical records were reviewed. This patient has a history of chronic kidney disease and has been undergoing hemodialysis for last few months. Patient came with fever with chills for a couple of days and has been found to have a Staph aureus bacteremia. Patient did not complain of any chest pain. The patient has a mildly elevated troponin. This patient has a history of ischemic cardiomyopathy and coronary artery disease. He underwent multiple artery stenting in February by Dr. Santos. The patient denies any orthopnea, PND or chest discomfort and is comfortable at present. PAST MEDICAL HISTORY: Includes history of chronic kidney disease on hemodialysis, history of multiple stents, a history of ischemic cardiomyopathy and history of chronic respiratory failure. HOME MEDICATIONS: The patient's home medications included aspirin 81 mg daily, Celexa, Lipitor 80 mg daily, Coreg 12.5 mg b.i.d., Plavix 75 mg daily, Lasix 80 mg b.i.d., Norvasc once a day, Apresoline 25 mg t.i.d., Ventolin inhaler and Bumex. PHYSICAL EXAMINATION: This patient at present is lying comfortably in the bed. He is afebrile. Respiratory rate is 18, blood pressure is 100/70 mmHg. HEENT examination is normal. Neck is supple. There is no increase in jugular venous pressure. Both the carotid pulses are felt. There is no bruit. Chest is symmetrical. Heart: The PMI is not felt. First and second heart sounds are heard. Lungs are clinically clear to auscultation and percussion. Abdomen is soft. Liver and spleen are not enlarged. Extremities: Peripheral pulsations are 1+. EKG shows normal sinus rhythm with nonspecific ST changes, not significantly changed from before. Blood cultures are positive. Patient's creatinine is 6.06. The patient's current troponin is minimally elevated without any significant rise and fall. The patient has a mildly elevated troponin all the time. FINAL IMPRESSION: This patient is admitted with a Staph aureus bacteremia and sepsis. Patient had intermittent episodes of hypotension. The patient did not complain of any chest pain. The patient has some chronic elevation in the troponin and with a minimal fluctuation in the troponin level, which could be secondary to his septicemia and hypotension. The patient does have underlying ischemic cardiomyopathy. We will obtain echo and Doppler study. Continue the current medications. Overall picture is not suggestive of acute coronary syndrome. MMODL / IJN: [id number] /
--- NOTE | 2018-05-24 16:58 | PCN ---
PROCEDURE NOTE PREOP DIAGNOSIS: Positive blood culture. PROCEDURE PERFORMED: Removal of the right IJ catheter. PROCEDURE: This patient has a right IJ catheter for dialysis. His blood cultures are positive. I was consulted for removal of the dialysis catheter. The patient was seen in his room. Right side of the neck and chest was prepped and draped in sterile manner. 1% lidocaine plain infiltrated. Incision was made at the exit site of the catheter and went circumferentially around the cuff and catheter was removed and tip of the catheter was sent for culture and sensitivity. Dressing applied. Patient tolerated the procedure well. MMROXIEL / SRINIVASN: [id number] /
[2018-05-24] MEDS: ATORVASTATIN 80 MG TAB PO SCH (20:27)
[2018-05-25] MEDS: HYDROcodone/APAP 5-325MG 1 EACH TAB PO PRN ×3 (00:25→14:56)
[2018-05-25] MEDS: SODIUM CHLORIDE 0.9% 500 ML 500 ML IV SCH (04:46)
[2018-05-25 05:13] LABS: Appearance,Urine Clear (Clear); Bilirubin,Urine Negative (Negative); Blood,Urine Negative (Negative); Color,Urine Yellow; Glucose,Urine (UA) Trace (Negative); Ketones,Urine Negative (Negative); Leukocyte Esterase,Urine Negative (Negative); Nitrite,Urine Negative (Negative); Protein,Urine 2+ (Negative); RBC,Urine <1 /hpf (0-5); Specific Gravity,Urine 1.007 (1.001-1.035); Urobilinogen,Urine <2.0 mg/dL (<2.0); WBC,Urine 1 /hpf (0-5)
[2018-05-25 05:32] LABS: Basophils % (A) 1 %; Eosinophils # (A) 0.1 k/uL (0-0.7); Eosinophils % (A) 4 %; HGB 10.3 gm/dL (13.0-17.5); Lymphocytes # (A) 0.5 k/uL (1.0-4.8); Lymphocytes % (A) 12 %; MCH 32.6 pg (25.0-35.0); MCHC 32.1 g/dL (31.0-37.0); MCV 101.6 fL (80.0-100.0); Macrocytosis Slight; Mean Platelet Volume 7.6; Monocytes # (A) 0.2 k/uL (0-1.0); Monocytes % (A) 6 %; Neutrophils # (A) 2.8 k/uL (1.3-7.7); Neutrophils % (A) 75 %; Platelet Count 104 k/uL (150-450); RBC 3.15 m/uL (4.30-5.90); WBC 3.7 k/uL (3.8-10.6)
[2018-05-25 05:49] LABS: Calcium 8.9 mg/dL (8.4-10.2); Potassium 4.4 mmol/L (3.5-5.1)
[2018-05-25] MEDS ORDERED: VANCOMYCIN 1,500 MG in SODIUM CHLORIDE 0.9% 250 ML IVPB ONE (06:00)
[2018-05-25] MEDS: LEVOTHYROXINE 75 MCG TAB PO SCH (06:03)
[2018-05-25] MEDS: CARVEDILOL 12.5 MG TAB PO SCH ×2 (08:40→16:55)
[2018-05-25] MEDS: CLOPIDOGREL 75 MG TAB PO SCH (08:40)
[2018-05-25] MEDS: SEVELAMER 800 MG TAB PO SCH ×3 (08:40→16:55)
[2018-05-25] MEDS: ALLOPURINOL 100 MG TAB PO SCH (08:40)
[2018-05-25] MEDS: CITALOPRAM HYDROBROMIDE 20 MG TAB PO SCH (08:40)
[2018-05-25] MEDS: FUROSEMIDE 40 MG TAB PO SCH ×2 (08:40→20:36)
[2018-05-25] MEDS: busPIRone HCl 5 MG TAB PO SCH ×2 (08:41→20:36)
[2018-05-25] MEDS: CHOLECALCIFEROL 1,000 UNIT TAB PO SCH (08:41)
[2018-05-25] MEDS: MAGNESIUM OXIDE 400 MG TAB PO SCH (08:41)
[2018-05-25] MEDS: FAMOTIDINE 20 MG TAB PO SCH (08:41)
[2018-05-25] MEDS: ASPIRIN 81 MG PO SCH (08:41)
--- NOTE | 2018-05-25 08:48 | P.PN ---
Subjective Progress Note Date: 05/25/18 Principal diagnosis: This is a 57-year-old male with ESRD on dialysis MWF, via permacath came in because of gram-positive bacteremia. His permacath was discontinued yesterday, but blood culture from yesterday drawn prior to P cath removal remains positive. He is on vancomycin. Currently afebrile and has no new complaints. Feels fairly well. Had a good appetite. He made some urine. No fever chills cough shortness of breath chest pain dizziness. He has a immature fistula in his right upper arm. His past history significant for coronary artery disease COPD hypertension and cardiomyopathy. He lost his left arm and a washing machine accident as a young child. Objective - Vital Signs Vital signs: Vital Signs Temp 97.9 F 05/25/18 04:00 Pulse 64 05/25/18 04:00 Resp 16 05/25/18 04:00 BP 120/60 05/25/18 04:00 Pulse Ox 95 05/25/18 04:00 Intake & Output 05/24/18 05/25/18 05/25/18 18:59 06:59 18:59 Intake Total 560 620 Output Total 0 450 Balance 560 170 Weight 84.1 kg Intake: IV 80 320 Sodium Chloride 0.9% 500 80 320 ml 500 ml @ 20 mls/hr IV .Q24H [facility] Rx#:[id number] Oral 480 300 Output: Urine 0 450 On examination awake alert oriented comfortable HEENT exam no JVP neck is supple no facial asymmetry Lungs clear to auscultation good air entry bilaterally. Heart sounds are unremarkable for any murmur rub gallop Abdomen soft nontender no masses Extremity exam was no edema He is left on his amputated from an accident as a child. Neurologically awake alert oriented no asterixis - Labs CBC & Chem 7: 05/25/18 05:00 05/25/18 05:00 Labs: Abnormal Lab Results - Last 24 Hours (Table) 05/24/18 05/25/18 05/25/18 Range/Units 08:21 05:00 05:00 WBC 3.7 L (3.8-10.6) k/uL RBC 3.15 L (4.30-5.90) m/uL Hgb 10.3 L (13.0-17.5) gm/dL Hct 32.0 L (39.0-53.0) % MCV 101.6 H (80.0-100.0) fL Plt Count 104 L (150-450) k/uL Lymphocytes # 0.5 L (1.0-4.8) k/uL Sodium 135 L (137-145) mmol/L BUN 64 H (9-20) mg/dL Creatinine 7.94 H* (0.66-1.25) mg/dL Troponin I 0.371 H* (0.000-0.034) ng/mL Urine Protein (Negative) Urine Glucose (UA) (Negative) 05/25/18 Range/Units 05:00 WBC (3.8-10.6) k/uL RBC (4.30-5.90) m/uL Hgb (13.0-17.5) gm/dL Hct (39.0-53.0) % MCV (80.0-100.0) fL Plt Count (150-450) k/uL Lymphocytes # (1.0-4.8) k/uL Sodium (137-145) mmol/L BUN (9-20) mg/dL Creatinine (0.66-1.25) mg/dL Troponin I (0.000-0.034) ng/mL Urine Protein 2+ H (Negative) Urine Glucose (UA) Trace H (Negative) Microbiology - Last 24 Hours (Table) 05/24/18 10:03 Blood Culture - Final Blood 05/24/18 14:15 Catheter Tip Culture - Preliminary Catheter Tip 05/23/18 20:44 Gram Stain - Preliminary Chest Wound Culture - Preliminary 05/23/18 20:44 Blood Culture Gram Stain - Preliminary Blood Blood Culture - Preliminary Presumptive MRSA 05/23/18 20:44 Blood Culture - Final Blood Assessment and Plan Assessment: Impression 1. ESRD secondary to nephrosclerosis on hemodialysis Saturday at the [facility] unit permacath in the right IJ. Last hemodialysis 05/23/2018. Today's labs are stable and he is euvolemic. 2. Gram-positive bacteremia with possible exit site and tunnel infection of the permacath. Permacath was discontinued yesterday on 05/24/2018. Blood cultures remained positive as of yesterday prior to his permacath removal 3. Hypertensive nephrosclerosis. 4. 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 5. History of cardiac catheterization on 02/05/2018 with severe triple-vessel disease cardio myopathy. Recommendation at the time was medical management and surgical evaluation 6. Cardiac catheterization repeated 02/28/2018, stenting of the LAD proximal left circumflex. Recommendation. 1. Blood cultures today have been drawn,. 2. Draw basic metabolic panel tomorrow to determine if he needs to be dialyzed. 3. Maintain vancomycin per ID recommendation. 3. Daily labs to ensure potassium is normal. 4. Maintain Lasix 80 mg po every 12
--- NOTE | 2018-05-25 11:23 | CONS ---
CONSULTATION DATE OF SERVICE: 05/24/2018. REASON FOR CONSULTATION: Gram-positive bacteremia. HISTORY OF PRESENT ILLNESS: The patient is a 57 -year-old male with past medical history significant for coronary artery disease, heart failure, COPD, end-stage renal disease on hemodialysis Saturday, Saturday and Saturday through a right subclavian Perma catheter. The patient presented to the ER at [facility] last night with chief complaints of feeling lightheaded. Apparently the patient did have a syncopal episode as the patient unconscious 2 to 3 minutes. EMS was called and on arrival the EMS noticed the patient did have fever 103.4 degrees Fahrenheit. The patient denies having any headache. No nausea, no vomiting. No abdominal pain or any diarrhea. No urinary symptoms. Subsequently the patient was brought to the ER for further evaluation. On arrival to the ER, the patient did have a chest x-ray, which was reported negative for any cardiopulmonary disease. The patient has been spiking a fever 103.4 degrees Fahrenheit. The patient did have blood cultures obtained showing presumptive MRSA that prompted this infectious disease consultation with concern for possible PermCath infection. Vascular surgery was consulted for removal of the Perma catheter. Apparently the patient is vasculopathic and has no significant IV access site left as per discussion with Vascular Surgery. REVIEW OF SYSTEMS: CONSTITUTIONAL: Positive for weakness along with the fever. EYES: No complaint. ENT: No complaint. RESPIRATORY: No complaint. CARDIOVASCULAR: No complaint. GENITOURINARY: No complaint. GASTROINTESTINAL: No complaint. MUSCULOSKELETAL: No complaint. INTEGUMENTARY: No complaint. PSYCHOLOGICAL: No complaint. ENDOCRINE: No complaint. NEUROLOGIC: No complaint. PAST MEDICAL HISTORY: Coronary artery disease, heart failure with gastroesophageal reflux disease, hypertension, hyperlipidemia, , hypothyroidism. PAST SURGICAL HISTORY: Hemodialysis catheter placement, PTCA with stent, drainage of this left mandible abscess, left [id number] amputation because of injury. SOCIAL HISTORY: Remote history of smoking. No drinking or drug use. FAMILY HISTORY: No pertinent findings noticed. ALLERGIES: PENICILLIN. MEDICATIONS: Currently include the patient is on Tylenol, Laurel, Ventolin, Zyloprim, aspirin, Lipitor, BuSpar, Coreg, vitamin D3, Celexa, Plavix, Pepcid, Lasix, Synthroid, Mag oxide, vancomycin pharmacy to dose, Narcan. EXAMINATION: Blood pressure 150/64 with a pulse of 57. Temperature 97.4. He is 96% on room air. General description is a middle-aged male lying in bed in no distress. No tachypnea or accessory muscle of respiration use. HEENT: Shows pallor, no scleral icterus. Oral mucosa membrane is dry. No pharyngeal erythema or thrush. NECK: Trachea central. No thyromegaly. LUNGS: Unlabored breathing. Clear to auscultation anteriorly. No wheeze or crackle. HEART: S1, S2. Regular rate and rhythm. ABDOMEN: Soft, no tenderness. No guarding or rigidity. EXTREMITIES: No edema feet. SKIN EXAMINATION: No rashes. No mass palpable. NEUROLOGICAL: The patient is awake, alert, oriented x3. Mood and affect normal. LABS: Hemoglobin is 10.2, white count 10.9, BUN of 35, creatinine 6.06. elevated liver. The influenza PCR has been negative. DIAGNOSTIC IMPRESSION AND PLAN: Patient admitted to the hospital with a fever of 103.4 degrees Fahrenheit. The patient did have elevated white count with some tachycardia meeting criteria for SIRS/sepsis, source is likely a dialysis catheter infection with evidence of MRSA bacteremia the likely pathogen. PLAN: 1. Vancomycin pharmacy to dose target of 15. 2. The PermCath has been removed today. Blood cultures will be repeated afterwards. Once his blood cultures are negative at 72 hours, he will be able to get another dialysis catheter. This was discussed in detail with Vascular Surgery as well as Tape Cutting Machine Operator on the phone. 3. We will follow up on clinical condition and culture to further adjust medication if needed. Thank you for this consultation. Will follow this patient along with you. MMODL / IJN: [id number] /
--- NOTE | 2018-05-25 15:59 | ECHOF ---
Referral Reason:increased troponins MEASUREMENTS -------- HEIGHT: 180.3 cm WEIGHT: 87.1 kg BP: IVSd: 1.4 cm (0.6 - 1.1) LVIDd: 5.3 cm (3.9 - 5.3) LVPWd: 1.4 cm (0.6 - 1.1) IVSs: 1.5 cm LVIDs: 3.7 cm LVPWs: 1.5 cm LA Diam: 3.2 cm (2.7 - 3.8) MV E Manny: 0.88 m/s MV DecT: 245 ms MV A Manny: 0.98 m/s MV E/A Ratio: 0.89 RAP: 5.00 mmHg RVSP: 11.04 mmHg FINDINGS -------- Sinus rhythm. This was a technically adequate study. The left ventricular size is normal. There is mild concentric left ventricular hypertrophy. Overa ll left ventricular systolic function is normal with, an EF between 55 - 60 %. The right ventricle is normal in size and function. Normal LA size by volume 22+/-6 ml/m2. The right atrium is normal in size. Aortic valve is trileaflet and is mildly thickened. There is no evidence of aortic regurgitation. There is no evidence of aortic stenosis. The mitral valve leaflets are mildly thickened. There is trace to mild mitral regurgitation. Trace tricuspid regurgitation present. Right ventricular systolic pressure is normal at < 35 mmHg. There is no evidence of pulmonary hypertension. Trace/mild (physiologic) pulmonic regurgitation. The aortic root size is normal. Normal inferior vena cava with normal inspiratory collapse consistent with estimated right atrial pre ssure of 5 mmHg. There is no pericardial effusion. CONCLUSIONS -------- 1. Sinus rhythm. 2. This was a technically adequate study. 3. The left ventricular size is normal. 4. There is mild concentric left ventricular hypertrophy. 5. Overall left ventricular systolic function is normal with, an EF between 55 - 60 %. 6. Normal LA size by volume 22+/-6 ml/m2. 7. Aortic valve is trileaflet and is mildly thickened. 8. The mitral valve leaflets are mildly thickened. 9. There is trace to mild mitral regurgitation. 10. Trace tricuspid regurgitation present. 11. Right ventricular systolic pressure is normal at < 35 mmHg. 12. There is no evidence of pulmonary hypertension. 13. Trace/mild (physiologic) pulmonic regurgitation. 14. The aortic root size is normal. 15. There is no pericardial effusion. SEED CLEANING MACHINE OPERATOR: Elijah Whittington RDCS
--- NOTE | 2018-05-25 16:03 | P.PN ---
Subjective 57-year-old gentleman was admitted secondary to infected dialysis catheter. Patient's right permacath was removed. Blood cultures from yesterday with a positive for MRSA. Repeat blood cultures from today are pending a catheter tip culture is pending. Patient on IV vancomycin infectious disease, nephrology evaluated the patient. Cardiology evaluated the patient because of minimally elevated troponins which is secondary to chronic kidney disease and sepsis. Patient blood pressure is fairly stable at this time. Patient is feeling much better today. Will be transferred out of ICU. Constitutional: Denied any fatigue denied any fever. Cardio vascular: denied any chest pain, palpitations Gastrointestinal denied any nausea vomiting Pulmonary: Denied any shortness of breath cough Neurologic denied any new focal deficits All inpatient medications were reviewed and appropriate changes in these medications as dictated in the interval history and assessment and plan. Objective - Vital Signs Vital signs: Vital Signs Temp 97.6 F 05/25/18 12:00 Pulse 62 05/25/18 12:00 Resp 13 05/25/18 12:00 BP 120/68 05/25/18 12:00 Pulse Ox 95 05/25/18 12:00 Intake & Output 05/24/18 05/25/18 05/25/18 18:59 06:59 18:59 Intake Total 560 620 400 Output Total 0 450 350 Balance 560 170 50 Weight 84.1 kg Intake: IV 80 320 Sodium Chloride 0.9% 500 80 320 ml 500 ml @ 20 mls/hr IV .Q24H [facility] Rx#:[id number] Oral 480 300 400 Output: Urine 0 450 350 Other: Voiding Method Urinal # Voids 1 - Exam PHYSICAL EXAMINATION: GENERAL: The patient is alert and oriented x3, not in any acute distress. Well developed, well nourished. HEENT: Pupils are round and equally reacting to light. EOMI. No scleral icterus. No conjunctival pallor. Normocephalic, atraumatic. No pharyngeal erythema. No thyromegaly. CARDIOVASCULAR: S1 and S2 present. No murmurs, rubs, or gallops. PULMONARY: Chest is clear to auscultation, no wheezing or crackles. ABDOMEN: Soft, nontender, nondistended, normoactive bowel sounds. No palpable organomegaly. MUSCULOSKELETAL: No joint swelling or deformity. EXTREMITIES: No cyanosis, clubbing, or pedal edema. 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 SKIN: Right subclavian dialysis catheter removed - Labs CBC & Chem 7: 05/25/18 05:00 05/25/18 05:00 Labs: Abnormal Lab Results - Last 24 Hours (Table) 05/25/18 05/25/18 05/25/18 Range/Units 05:00 05:00 05:00 WBC 3.7 L (3.8-10.6) k/uL RBC 3.15 L (4.30-5.90) m/uL Hgb 10.3 L (13.0-17.5) gm/dL Hct 32.0 L (39.0-53.0) % MCV 101.6 H (80.0-100.0) fL Plt Count 104 L (150-450) k/uL Lymphocytes # 0.5 L (1.0-4.8) k/uL Sodium 135 L (137-145) mmol/L BUN 64 H (9-20) mg/dL Creatinine 7.94 H* (0.66-1.25) mg/dL Urine Protein 2+ H (Negative) Urine Glucose (UA) Trace H (Negative) Microbiology - Last 24 Hours (Table) 05/23/18 20:44 Gram Stain - Preliminary Chest Wound Culture - Preliminary Presumptive MRSA 05/24/18 10:03 Blood Culture Gram Stain - Preliminary Blood 05/25/18 05:00 Urine Culture - Preliminary Urine,Voided 05/24/18 10:03 Blood Culture - Final Blood 05/24/18 14:15 Catheter Tip Culture - Preliminary Catheter Tip 05/23/18 20:44 Blood Culture Gram Stain - Preliminary Blood Blood Culture - Preliminary Presumptive MRSA Assessment and Plan Plan: Sepsis: Secondary to bacteremia from possible infected dialysis catheter. Status post removal of catheter blood culture showing MRSA. Repeat blood cultures tomorrow. Patient is on IV vancomycin. -End-stage renal disease hemodialysis dependent, metabolic bone disease secondary to his renal disease: Nephrology allowing the patient -Hypertension: Presently hypotensive amlodipine and hydralazine are being held and hypotension is secondary to sepsis -Sclerae start failure chronic systolic dysfunction ejection fraction of 20% without any acute exacerbation -COPD without any acute exacerbation -Hyperlipidemia -Hypothyroidism -anemia of chronic kidney disease -Minimally elevated troponin secondary to end-stage renal disease and sepsis Continue present medications without any changes today.
[2018-05-25] MEDS: ATORVASTATIN 80 MG TAB PO SCH (20:36)
--- NOTE | 2018-05-26 00:53 | PN ---
PROGRESS NOTE DATE OF SERVICE: 05/25/2018. REASON FOR FOLLOWUP: MRSA bacteremia secondary to the PermCath infection. INTERVAL HISTORY: The patient is afebrile. He seems to be breathing comfortably patient denies having any chest pain or shortness of breath. No cough. No abdominal pain or any diarrhea. EXAMINATION: Blood pressure is 109/70 with a pulse of 60, temperature 97.5. GENERAL DESCRIPTION: A middle-aged male lying in bed in no distress. RESPIRATORY SYSTEM: Unlabored breathing. Clear to auscultation anteriorly. HEART: S1, S2. Regular rate and rhythm. ABDOMEN: Soft. EXTREMITIES: No edema of the feet. LABS: Hemoglobin is 10.1, white count 3.7, BUN of 64, creatinine 7.94. Blood cultures 05/24/2018 have been positive. DIAGNOSTIC IMPRESSION AND PLAN: Patient with MRSA bacteremia secondary to the Mcbride catheter which has been discontinued. We will keep the patient on vancomycin, pharmacy to dose, target of 15. Blood cultures will be repeated tomorrow. Once the blood culture repeat is negative at 72 hours, he will be able to go for catheter. Overall prognosis remains to be guarded. Continue supportive care. MMODL / IJN: [id number] /
[2018-05-26] MEDS: SODIUM CHLORIDE 0.9% 500 ML 500 ML IV SCH ×2 (01:30→05:27)
[2018-05-26] MEDS ORDERED: LEVOFLOXACIN 500MG-D5W PMX 500 MG in DEXTROSE/WATER 1 100ML.BAG IVPB SCH (01:45)
[2018-05-26 04:53] LABS: Prothrombin Time 9.5 sec (9.0-12.0)
[2018-05-26 04:54] LABS: Partial Thromboplastin Time 24.9 sec (22.0-30.0)
[2018-05-26 04:59] LABS: HCT 29.2 % (39.0-53.0); HGB 9.5 gm/dL (13.0-17.5); MCH 32.5 pg (25.0-35.0); MCHC 32.4 g/dL (31.0-37.0); MCV 100.1 fL (80.0-100.0); Macrocytosis Slight; Mean Platelet Volume 7.2; Platelet Count 101 k/uL (150-450); RBC 2.92 m/uL (4.30-5.90); RDW 14.8 % (11.5-15.5); WBC 3.3 k/uL (3.8-10.6)
[2018-05-26 05:02] LABS: Calcium 8.6 mg/dL (8.4-10.2); Magnesium 2.3 mg/dL (1.6-2.3); Phosphorus 6.7 mg/dL (2.5-4.5); Potassium 4.6 mmol/L (3.5-5.1)
--- NOTE | 2018-05-26 06:15 | PN ---
PROGRESS NOTE This patient has a history of end-stage renal disease. Patient was admitted with fever and hypotension. Patient's blood cultures are positive. He is otherwise feeling well. Denies any chest pain. Denies any shortness of breath. Patient is afebrile. Blood pressure is 121/67 mmHg. First and second heart sounds are normal. Lungs are clear to auscultation and percussion. Echocardiogram reveals overall normal left ventricular systolic function without any wall motion abnormality. IMPRESSION: This patient's overall clinical picture is not suggestive of acute coronary syndrome. The patient had a mild elevation in myocardial injury. Continue the current medications. MMODL / IJN: [id number] /
[2018-05-26] MEDS: HYDROcodone/APAP 5-325MG 1 EACH TAB PO PRN ×2 (06:49→21:02)
[2018-05-26] MEDS: LEVOTHYROXINE 75 MCG TAB PO SCH (06:50)
[2018-05-26] MEDS: CARVEDILOL 12.5 MG TAB PO SCH ×2 (06:51→17:49)
[2018-05-26] MEDS: SEVELAMER 800 MG TAB PO SCH ×3 (06:51→17:48)
[2018-05-26] MEDS: CLOPIDOGREL 75 MG TAB PO SCH (08:24)
[2018-05-26] MEDS: ALLOPURINOL 100 MG TAB PO SCH (08:24)
[2018-05-26] MEDS: CITALOPRAM HYDROBROMIDE 20 MG TAB PO SCH (08:24)
[2018-05-26] MEDS: MAGNESIUM OXIDE 400 MG TAB PO SCH (08:24)
[2018-05-26] MEDS: FAMOTIDINE 20 MG TAB PO SCH (08:24)
[2018-05-26] MEDS: busPIRone HCl 5 MG TAB PO SCH ×2 (08:24→21:02)
[2018-05-26] MEDS: FUROSEMIDE 40 MG TAB PO SCH ×2 (08:24→21:02)
[2018-05-26] MEDS: CHOLECALCIFEROL 1,000 UNIT TAB PO SCH (08:24)
[2018-05-26] MEDS: ASPIRIN 81 MG PO SCH (08:24)
--- NOTE | 2018-05-26 17:23 | PN ---
PROGRESS NOTE DATE OF SERVICE: 05/26/2018. REASON FOR FOLLOWUP: MRSA bacteremia secondary to PermCath infection. INTERVAL HISTORY: The patient is currently afebrile. He is breathing comfortably. Denies having any chest pain, shortness of breath or cough. No abdominal pain. No nausea, vomiting, or any diarrhea. EXAMINATION: Blood pressure 141/75 with a pulse of 63, temperature 97.8. He is 97% on room air. General description is a middle-aged male lying in bed in no distress. Respiratory system: Unlabored breathing. Clear to auscultation anteriorly. Heart S1, S2. Regular rate and rhythm. Abdomen soft. No tenderness. LABS: Hemoglobin is 9.5, white count 3.3, BUN of 78, creatinine is 9.26. Blood culture that were drawn on 05/25, has been positive as well. DIAGNOSTIC IMPRESSION AND PLAN: Patient with is MRSA bacteremia secondary to PermCath infection. The PermCath has already been discontinued. Blood cultures still positive. Blood culture has been repeated this morning. We will follow those. We will have to make sure the blood culture negative at 72 hours before placing another PermCath. Vancomycin to continue. Pharmacy to dose, target of 15. Plan of care discussed with the vascular surgeon on the phone. Continue supportive care. MMODL / IJN: [id number] /
--- NOTE | 2018-05-26 18:33 | PN ---
PROGRESS NOTE Patient is seen for followup for end-stage renal disease. He had MRSA bacteremia and his PermCath has now been discontinued. Blood cultures as of yesterday, grew gram- positive cocci. The patient is currently afebrile. He is maintained on vancomycin. His creatinine from this morning was 9.2 and potassium was 4.6. The patient is maintained on Lasix. He has decent urine output. He denies any significant complaints today. EXAMINATION: This morning blood pressure was 141/75, heart rate 63 per minute. He is afebrile. Examination of the heart S1, S2. Examination of the lungs bilateral breath sounds are heard. Abdomen is soft, nontender. Examination of lower extremity shows no evidence of edema. MARKET INVESTIGATOR exam is grossly intact. 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 MARKET INVESTIGATOR exam is grossly intact. LABS SHOW: Sodium 133, potassium 4.6, BUN 78, serum creatinine 9.26, hemoglobin 9.5 g/dL, phosphorus was 6.7. ASSESSMENT: 1. End-stage renal disease, on hemodialysis on a Saturday, Saturday, Saturday schedule, status post removal of PermCath secondary to MRSA bacteremia. Currently awaiting blood cultures to be negative for new catheter placement. However, in the meantime, if the patient remains bacteremic, he will need a temporary dialysis catheter. As of today, he does not need to be dialyzed. We will continue with the Lasix and repeat labs in a.m. The patient will be monitored for volume status, uremia and hyperkalemia on a daily basis. 2. MRSA bacteremia. Maintained on vancomycin being followed by ID. Blood cultures have been redrawn today. 3. CKD mineral bone disorder with hyperphosphatemia, currently maintained on Renvela. If the phosphorus remains elevated, we may need to add PhosLo. However, this will be high as patient has not been dialyzed as well. PLAN: Continue with Lasix. Repeat labs in a.m. Continue to monitor for need for dialysis on a daily basis. MMODL / IJN: [id number] /
[2018-05-26] MEDS: ATORVASTATIN 80 MG TAB PO SCH (21:02)
--- NOTE | 2018-05-27 05:42 | PN ---
PROGRESS NOTE DATE OF SERVICE: 05/26/2018 PRESENTING COMPLAINT: Infected hemodialysis catheter. INTERVAL HISTORY: The patient had an infected hemodialysis catheter, it was removed. Has received vancomycin. Awaiting cultures to be negative. Tolerating a diet. No fever. Feels a little bit tired. The patient has moved out of the ICU. REVIEW OF SYSTEMS: Done for constitutional, cardiovascular, GI, pulmonary; relevant findings as above. CURRENT MEDICATIONS: Current medications are reviewed that include vancomycin. PHYSICAL EXAMINATION: On examination, temperature 97.2 pulse 77, respiration 18, blood pressure 176/73, pulse ox 96% on room air. GENERAL APPEARANCE: Lying in bed, awake. EYES: Pupils equal. Conjunctivae pale. HEENT: External appearance of nose and ears normal. Oral cavity normal. NECK: JVD not raised. Mass not palpable. RESPIRATORY: Effort normal. LUNGS: Diminished breath sounds. CARDIOVASCULAR: First and seconds sounds normal. No edema. ABDOMEN: Soft, nontender. Liver and spleen not palpable. PSYCHIATRY: Alert and oriented x3. Mood and affect normal. EXTREMITIES: Left amputation. INVESTIGATIONS: White count 3.3, hemoglobin 9.5, platelets 101. Potassium 4.6, BUN 78, creatinine 9.26. Patient's blood cultures continue MRSA and catheter tip growing MRSA. Also cultures from 05/16/2011 growing gram-positive cocci. ASSESSMENT: 1. Acute infected hemodialysis catheter that is now removed. 2. End-stage kidney disease on hemodialysis. 3. Normocytic anemia secondary to chronic kidney disease. 4. Chronic obstructive pulmonary disease. 5. 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 6. Chronic congestive heart failure from systolic dysfunction, ejection fraction 30% to 35% from coronary artery disease. 7. Coronary artery disease. 8. Repeat echocardiogram showing an ejection fraction 55% to 60%. 9. Troponin positive in the setting of renal failure. No clinical evidence of acute coronary syndrome. PLAN: Continue current medication and treatment plan. Patient is being followed by ID. When cultures are negative, the patient will get another hemodialysis access. Pharmacy is following the vancomycin level. Care was discussed with the patient. Questions were answered. MMODL / IJN: [id number] /
[2018-05-27] MEDS: LEVOTHYROXINE 75 MCG TAB PO SCH (06:58)
[2018-05-27] MEDS: FUROSEMIDE 40 MG TAB PO SCH ×2 (09:04→20:59)
[2018-05-27] MEDS: ASPIRIN 81 MG PO SCH (09:04)
[2018-05-27] MEDS: CLOPIDOGREL 75 MG TAB PO SCH (09:05)
[2018-05-27] MEDS: FAMOTIDINE 20 MG TAB PO SCH (09:05)
[2018-05-27] MEDS: CITALOPRAM HYDROBROMIDE 20 MG TAB PO SCH (09:06)
[2018-05-27] MEDS: MAGNESIUM OXIDE 400 MG TAB PO SCH (09:06)
[2018-05-27] MEDS: ALLOPURINOL 100 MG TAB PO SCH (09:07)
[2018-05-27] MEDS: CHOLECALCIFEROL 1,000 UNIT TAB PO SCH (09:07)
[2018-05-27] MEDS: busPIRone HCl 5 MG TAB PO SCH ×2 (09:08→20:59)
[2018-05-27] MEDS: CARVEDILOL 12.5 MG TAB PO SCH ×2 (09:08→16:37)
[2018-05-27] MEDS: SEVELAMER 800 MG TAB PO SCH ×3 (09:09→17:34)
[2018-05-27] MEDS: HYDROcodone/APAP 5-325MG 1 EACH TAB PO PRN (09:17)
[2018-05-27 10:55] LABS: Potassium 4.9 mmol/L (3.5-5.1)
[2018-05-27 11:16] LABS: Appearance,Urine Clear (Clear); Bilirubin,Urine Negative (Negative); Blood,Urine Trace (Negative); Color,Urine Light Yellow; Glucose,Urine (UA) Trace (Negative); Ketones,Urine Negative (Negative); Leukocyte Esterase,Urine Negative (Negative); Nitrite,Urine Negative (Negative); PH, Urine 7.5 (5.0-8.0); Protein,Urine 1+ (Negative); Specific Gravity,Urine 1.005 (1.001-1.035); Squamous Epithelial Cell,Urine <1 /hpf (0-4); Urobilinogen,Urine <2.0 mg/dL (<2.0); WBC,Urine <1 /hpf (0-5)
--- NOTE | 2018-05-27 17:43 | PN ---
PROGRESS NOTE DATE OF SERVICE: May 27, 2018. PRESENTING COMPLAINT: Infected hemodialysis catheter. INTERVAL HISTORY: The patient had a infected hemodialysis catheter removed. Has been on vancomycin. Pending cultures to be negative. Tolerating a diet, up to the bathroom. No fever. No chills. On the medical floor, being followed by Nephrology and ID. REVIEW OF SYSTEMS: Done for constitutional, cardiovascular, GI, pulmonary; relevant findings above. CURRENT MEDICATIONS: Reviewed. PHYSICAL EXAMINATION: VITAL SIGNS: On examination temperature afebrile, pulse 63, respiratory rate 18, blood pressure 130/65, pulse ox 95% on room air. GENERAL APPEARANCE: Lying in bed, comfortable. EYES: Pupils equal. Conjunctivae pale. HEENT: External appearance of nose and ears normal. Oral cavity normal. NECK: JVD not raised. Mass not palpable. RESPIRATORY: Effort normal. LUNGS: Decreased breath sounds. CARDIOVASCULAR: 1st and 2nd sounds normal. No edema. ABDOMEN: Soft, nontender. Liver and spleen not palpable. PSYCHIATRY: Alert and oriented x3. Mood and affect normal. EXTREMITIES: Left upper arm below-elbow amputation. INVESTIGATIONS: Potassium 4.9, BUN 85, creatinine 10.52. Vancomycin level is 23.2. ASSESSMENT: 1. Acute infected hemodialysis catheter that has been removed. Blood cultures being positive for MRSA. 2. End-stage kidney disease on hemodialysis. 3. Normocytic anemia secondary to chronic kidney disease. 4. Chronic obstructive pulmonary disease. 5. 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 6. Chronic congestive heart failure, combination of systolic and diastolic dysfunction. Latest EF is 55-60 percent from underlying coronary artery disease. 7. Coronary artery disease. 8. Troponin positive in the setting of renal failure. No clinical evidence of acute coronary syndrome. 9. Hypertension with chronic kidney disease. PLAN: Continue current medication and treatment plan. Need to wait for repeat blood cultures to be negative before dialysis access can be placed. Care was discussed with the patient. Follow. MMODL / IJN: [id number] /
[2018-05-27] MEDS: ATORVASTATIN 80 MG TAB PO SCH (20:59)
--- NOTE | 2018-05-27 22:16 | PN ---
PROGRESS NOTE HISTORY: Patient is seen for followup for end-stage renal disease. He has had MRSA bacteremia and the catheter has been removed. Blood cultures drawn yesterday so far are negative. Labs are being monitored on a daily basis. The serum creatinine is up to 10 today and serum potassium is at 4.9. Patient feels fairly okay. He denies any shortness of breath, nausea, or vomiting. The patient is maintained on Lasix. He seems to have fair amount of urine output. PHYSICAL EXAMINATION: Blood pressure was 137/68, heart rate 69 per minute. He is afebrile. Examination of the heart S1, S2. Examination lungs, bilateral breath sounds are heard. Abdomen is soft, nontender. Examination lower extremities shows no evidence of edema. 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 LABS: From today show sodium 135, potassium 4.9, BUN 85, serum creatinine 10.52, hemoglobin 9.5 g/dL. ASSESSMENT: 1. End-stage renal disease, on hemodialysis. Currently, dialysis on hold secondary to no access as the PermCath was removed for persistent MRSA bacteremia. 2. MRSA bacteremia secondary to PermCath-related infection status post removal of dialysis catheter. Repeat blood cultures from yesterday are showing no growth. Patient can likely have his catheter placed tomorrow. He is maintained on vancomycin. 3. Hypertension, currently controlled. 4. Chronic kidney disease mineral bone disorder. PLAN: Tentatively plan for access placement tomorrow. Blood cultures have been negative from yesterday and if they remain negative tomorrow, we can place the PermCath tomorrow. MMODL / IJN: [id number] /
--- NOTE | 2018-05-27 22:55 | PN ---
PROGRESS NOTE DATE OF SERVICE: 05/27/2018. REASON FOR FOLLOWUP: MRSA bacteremia secondary to PermCath infection. INTERVAL HISTORY: The patient is afebrile. He has been breathing comfortably. The patient denies having any chest pain, shortness of breath or cough. No abdominal pain or any diarrhea. EXAMINATION: Blood pressure 137/68 with a pulse of 69, temperature 98.3. GENERAL DESCRIPTION: A middle-aged male lying in bed in no distress. RESPIRATORY SYSTEM: Unlabored breathing. Clear to auscultation anteriorly. HEART: S1, S2. Regular rate and rhythm. ABDOMEN: Soft, no tenderness. LABS: Hemoglobin 9.5, white count 3.3. Vanco level 23.2. The blood cultures from 05/26/2018 have been negative so far. DIAGNOSTIC IMPRESSION AND PLAN: Patient with MRSA bacteremia secondary to PermCath infection, status post removal of the PermCath. The patient is currently on vancomycin. Blood cultures done yesterday have been negative so far. We will recommend waiting at least until 05/2015 for placement of another PermCath, to make sure those blood cultures from 05/26/2018 are negative before placing PermCath. Blood cultures will be repeated tomorrow. Continue vancomycin, pharmacy to dose. Continue supportive care. MMODL / IJN: [id number] /
[2018-05-28] MEDS: SODIUM CHLORIDE 0.9% 500 ML 500 ML IV SCH (00:03)
[2018-05-28] MEDS: LEVOTHYROXINE 75 MCG TAB PO SCH (06:09)
[2018-05-28] MEDS: HYDROcodone/APAP 5-325MG 1 EACH TAB PO PRN ×3 (06:13→17:01)
[2018-05-28] MEDS: SEVELAMER 800 MG TAB PO SCH ×3 (08:45→16:43)
[2018-05-28] MEDS: CHOLECALCIFEROL 1,000 UNIT TAB PO SCH (08:46)
[2018-05-28] MEDS: CARVEDILOL 12.5 MG TAB PO SCH ×2 (08:46→16:43)
[2018-05-28] MEDS: CITALOPRAM HYDROBROMIDE 20 MG TAB PO SCH (08:46)
[2018-05-28] MEDS: FAMOTIDINE 20 MG TAB PO SCH (08:46)
[2018-05-28] MEDS: FUROSEMIDE 40 MG TAB PO SCH ×2 (08:46→20:45)
[2018-05-28] MEDS: ASPIRIN 81 MG PO SCH (08:46)
[2018-05-28] MEDS: CLOPIDOGREL 75 MG TAB PO SCH (08:46)
[2018-05-28] MEDS: ALLOPURINOL 100 MG TAB PO SCH (08:46)
[2018-05-28] MEDS: busPIRone HCl 5 MG TAB PO SCH ×2 (08:46→20:45)
[2018-05-28] MEDS: MAGNESIUM OXIDE 400 MG TAB PO SCH (08:47)
[2018-05-28 11:07] LABS: Calcium 9.2 mg/dL (8.4-10.2); Potassium 5.5 mmol/L (3.5-5.1)
--- NOTE | 2018-05-28 19:23 | PN ---
PROGRESS NOTE DATE OF SERVICE: 05/28/18. PRESENTING COMPLAINT: Infected hemodialysis catheter. INTERVAL HISTORY: This is a patient who presented with infected hemodialysis catheter that was removed. Has been on vancomycin, pending culture has been negative. Tolerating a diet. Did have a bowel movement. No nausea, vomiting. No fevers. REVIEW OF SYSTEMS: Done for constitutional, cardiovascular, GI, pulmonary; relevant findings as above. CURRENT MEDICATIONS: Reviewed that include vancomycin. EXAMINATION: On examination: Temperature 97.2, pulse 72, respiration 16, blood pressure 113/61, pulse ox 96% on room air. GENERAL APPEARANCE: Lying in bed comfortable. EYES: Pupils equal. Conjunctivae pale. HEENT: External appearance of nose and ears normal. Oral cavity normal. NECK: JVD not raised. Mass not palpable. RESPIRATORY: Effort, lungs decreased breath sounds. CARDIOVASCULAR: First and second sounds, no edema. ABDOMEN: Soft, nontender. Liver and spleen not palpable. PSYCHIATRY: Alert and oriented x3. Mood and affect normal. EXTREMITIES: Left upper arm below-elbow amputation. INVESTIGATIONS: Potassium 5.5, BUN 90, creatinine 11.72. The patient's blood cultures from 05/26/18 are negative up to now. ASSESSMENT: 1. Acute infected hemodialysis catheter that has been removed. Blood cultures positive for MRSA. 2. End-stage kidney disease on hemodialysis. 3. Normocytic anemia secondary to chronic kidney disease. 4. Chronic obstructive pulmonary disease. 5. 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 6. Chronic congestive heart failure, combination of systolic and diastolic dysfunction. Ejection fraction 50-55 percent, underlying coronary artery disease. 7. Coronary artery disease. 8. Troponin positive in setting of renal failure. No evidence of acute coronary syndrome. 9. Hypertension with chronic kidney disease. PLAN: If cultures remain negative, patient can probably have a hemodialysis catheter placed tomorrow. Care was discussed with the patient. Follow. MMODL / IJN: [id number] /
[2018-05-28] MEDS: ATORVASTATIN 80 MG TAB PO SCH (20:45)
[2018-05-28] MEDS ORDERED: VANCOMYCIN 1,500 MG in SODIUM CHLORIDE 0.9% 250 ML IVPB ONE (21:00)
--- NOTE | 2018-05-28 23:05 | PN ---
PROGRESS NOTE Patient is seen for followup for end-stage renal disease. This morning, he denies any complaints. He is lying in bed. He is comfortable. We are awaiting catheter placement to resume dialysis. Blood cultures remain negative as of 05/26/2018. PHYSICAL EXAMINATION: This morning, blood pressure was 161/76, heart rate 58 per minute. Patient is afebrile. Examination of the heart S1, S2. Examination of the lungs bilateral breath sounds are heard. Abdomen is soft, nontender. Examination of lower extremities shows no significant edema. LAB: Show sodium 136, potassium 5.5, BUN 90, serum creatinine 11.7. ASSESSMENT: 1. End-stage renal disease, on hemodialysis, currently hemodialysis is on hold secondary to MRSA bacteremia. The blood cultures from May 26 remain negative, we can likely proceed with catheter placement tomorrow. The patient is being seen by ID. 2. Hyperkalemia secondary to renal failure. Expect improvement with starting dialysis. I will hold off on any treatment for now. We will repeat his labs in a.m. 3. Methicillin-resistant Staphylococcus aureus bacteremia secondary to the PermCath related infection, maintained on vancomycin. 4. Hypertension, controlled. PLAN: Tentative dialysis tomorrow. Hopefully, we can place the PermCath tomorrow. Blood cultures are negative thus far. MMODL / IJN: [id number] /
[2018-05-29] MEDS ORDERED: LIDOCAINE 1% 20 ML VIAL (10MG/ML) FOR IV START INTRADERMA PRN (01:10)
[2018-05-29] MEDS ORDERED: ONDANSETRON 4 MG/2 ML VIAL IVP ONE (01:10)
[2018-05-29] MEDS ORDERED: DEXAMETHASONE SOD PHOSPHATE 10 MG/ML 1 ML VIAL IV ONE (01:10)
--- NOTE | 2018-05-29 01:14 | PN ---
PROGRESS NOTE DATE OF SERVICE: 05/28/2018 REASON FOR FOLLOWUP: MRSA bacteremia secondary to PermCath infection. INTERVAL HISTORY: The patient is currently afebrile. He is breathing comfortably. Denies having any chest pain, shortness of breath or cough. No abdominal pain, no diarrhea. EXAMINATION: Blood pressure 126/82 with a pulse of 58, temperature 97.3. He is 98% on room air. General description is an elderly male lying in bed in no distress. RESPIRATORY SYSTEMS: Unlabored breathing, clear to auscultation anteriorly. HEART: S1, S2. Regular rate and rhythm. ABDOMEN: Soft, no tenderness. LABS: BUN of 19, creatinine 1.72. DIAGNOSTIC IMPRESSION AND PLAN: Patient with MRSA bacteremia secondary to PermCath infection. Blood cultures from 05/26/2018 and 05/27/2018 has been negative. He is cleared to go for a PermCath catheter placement tomorrow. He will need at least two weeks of IV vancomycin that can be done through dialysis blood culture. Finish a course of therapy. Continue supportive care. MMODL / IJN: [id number] /
[2018-05-29] MEDS ORDERED: MIDAZOLAM 2 MG/2 ML VIAL IV PRN (06:00)
[2018-05-29] MEDS ORDERED: fentaNYL (PF) 50 MCG/ML 2 ML AMP IV PRN (06:00)
[2018-05-29] MEDS: LEVOTHYROXINE 75 MCG TAB PO SCH (06:20)
[2018-05-29] MEDS: SODIUM CHLORIDE 0.9% 500 ML 500 ML IV SCH (07:37)
[2018-05-29] MEDS: ALLOPURINOL 100 MG TAB PO SCH (08:56)
[2018-05-29] MEDS: CARVEDILOL 12.5 MG TAB PO SCH ×2 (08:56→17:43)
[2018-05-29] MEDS: busPIRone HCl 5 MG TAB PO SCH ×2 (08:56→21:05)
[2018-05-29] MEDS: SEVELAMER 800 MG TAB PO SCH ×3 (08:57→17:43)
[2018-05-29] MEDS: CITALOPRAM HYDROBROMIDE 20 MG TAB PO SCH (08:58)
[2018-05-29] MEDS: CHOLECALCIFEROL 1,000 UNIT TAB PO SCH (08:58)
[2018-05-29] MEDS: FAMOTIDINE 20 MG TAB PO SCH (08:58)
[2018-05-29] MEDS: MAGNESIUM OXIDE 400 MG TAB PO SCH (08:59)
[2018-05-29] MEDS: FUROSEMIDE 40 MG TAB PO SCH ×2 (08:59→21:05)
[2018-05-29] MEDS: HYDROcodone/APAP 5-325MG 1 EACH TAB PO PRN (08:59)
[2018-05-29] MEDS: LACTATED RINGERS 1,000 ML IV SCH (11:26)
[2018-05-29] MEDS ORDERED: LIDOCAINE 1% INJ 10MG/ML (20 ML MDV) ONE (16:38)
[2018-05-29] MEDS ORDERED: MIDAZOLAM 2 MG/2 ML VIAL ONE (16:58)
[2018-05-29] MEDS ORDERED: LIDOCAINE 1% INJ 10MG/ML (20 ML MDV) SQ ONE (17:00)
[2018-05-29] MEDS ORDERED: IV FLUID CONTINUATION 1,000 ML IV ONE (17:02)
[2018-05-29] MEDS ORDERED: MIDAZOLAM 2 MG/2 ML VIAL IVP ONE (17:02)
[2018-05-29] MEDS ORDERED: fentaNYL (PF) 50 MCG/ML 2 ML AMP ONE (17:07)
[2018-05-29] MEDS ORDERED: fentaNYL (PF) 50 MCG/ML 2 ML AMP IVP ONE (17:10)
[2018-05-29] MEDS ORDERED: IOPAMIDOL-300 50ML BTL IV ONE (17:11)
[2018-05-29] MEDS: ASPIRIN 81 MG PO SCH (17:40)
[2018-05-29] MEDS: CLOPIDOGREL 75 MG TAB PO SCH (17:40)
--- NOTE | 2018-05-29 18:08 | XR ---
EXAMINATION TYPE: XR chest 1V confirm line [facility] DATE OF EXAM: 05/29/2018 COMPARISON: NONE HISTORY: None TECHNIQUE: Single frontal view of the chest is obtained. FINDINGS: There is some patchy infiltrate in the right lower lobe. There is no heart failure. There is right central venous catheter with the tip in the lower superior vena cava. There is no pneumothor ax. Trachea is midline. I see no pleural effusion. IMPRESSION: Catheter appears in good position. New right lower lobe patchy infiltrate compared to old exam.
--- NOTE | 2018-05-29 20:42 | PN ---
PROGRESS NOTE DATE OF SERVICE: 05/29/18 PRESENTING COMPLAINT: Infected hemodialysis catheter. INTERVAL HISTORY: This patient admitted with infected hemodialysis catheter that was removed. Been on vancomycin for MRSA. Repeat cultures have been negative. The patient is tolerating diet. Otherwise doing well. Looks like clearance has been given for dialysis catheter to be placed later today with possible hemodialysis. REVIEW OF SYSTEMS: Done for constitutional, cardiovascular, GI, pulmonary; relevant findings above. CURRENT MEDICATIONS: Current medications include vancomycin. EXAMINATION: Afebrile, pulse 56, respirations 20, blood pressure 139/64, pulse ox 96 percent on room air. GENERAL APPEARANCE: Sitting up comfortable. EYES: Pupils equal. Conjunctivae pale. HEENT: External appearance of nose and ears normal. Oral cavity normal. NECK: JVD not raised. Mass not palpable. RESPIRATORY: Effort, lungs decreased breath sounds. CARDIOVASCULAR: First and second sounds, no edema. ABDOMEN: Soft, nontender. Liver and spleen not palpable. PSYCHIATRY: Alert and oriented x3. Mood and affect normal. EXTREMITIES: Left upper arm below-elbow amputation chronic. INVESTIGATIONS: Potassium 5, BUN 89, creatinine 11.99. Blood cultures negative from 05/26/18. ASSESSMENT: 1. Acute infected hemodialysis catheter. Blood cultures positive for MRSA. Repeat culture negative from 05/26/18. 2. End-stage kidney disease, on hemodialysis. 3. Normocytic anemia secondary to chronic kidney disease. 4. Chronic obstructive pulmonary disease. 5. Mineral bone disease from chronic kidney disease. 6. Chronic congestive heart failure, combination of systolic and diastolic dysfunction. EF 50-55 percent from underlying coronary artery disease. 7. Coronary artery disease. 8. Troponin positive in setting of renal failure. No evidence of acute coronary syndrome. 9. Hypertension with chronic kidney disease. PLAN: The patient has a hemodialysis catheter placed today with dialysis today. Other medication and treatment plan to continue. Care was discussed with the patient. MMODL / IJN: [id number] /
[2018-05-29] MEDS: ATORVASTATIN 80 MG TAB PO SCH (21:05)
--- NOTE | 2018-05-29 23:23 | PN ---
PROGRESS NOTE Patient is seen for followup for end-stage renal disease. Patient is scheduled to have PermCath placed this afternoon. He will be dialyzed today. Blood cultures are negative thus far. On physical examination, blood pressure is 136/74, heart rate 74 per minute. Patient is afebrile. EXAMINATION OF THE HEART: S1, S2. EXAMINATION OF LUNGS: Bilateral breath sounds are heard. ABDOMEN: Soft, non-tender. Examination of lower extremities shows no evidence of edema. NURSE PRACTITIONER exam is grossly intact. Labs show sodium 136, potassium 5.0, BUN 89, serum creatinine 11.99. ASSESSMENT: 1. End-stage renal disease, on hemodialysis. Currently patient was on hold secondary to removal of PermCath because of MRSA bacteremia. 2. Methicillin-resistant Staphylococcus aeruginosa bacteremia associated with PermCath infection. Repeat blood cultures on 05/26 have been negative and patient will be having a dialysis catheter placed today. 3. Hyperkalemia associated end-stage renal disease. Expect further improvement with hemodialysis today. 4. Hypertension, currently controlled. 5. Chronic kidney disease mineral bone disorder. PLAN: Hemodialysis today as well as in a.m. Patient can be discharged tomorrow post dialysis. He will continue with his antibiotics as outpatient at the dialysis unit. MMODL / IJN: [id number] /
--- NOTE | 2018-05-30 00:45 | PN ---
PROGRESS NOTE DATE OF SERVICE: 05/29/2018. REASON FOR FOLLOWUP: MRSA bacteremia secondary to PermCath infection. INTERVAL HISTORY: The patient is afebrile. The patient is status post PermCath placement. The patient denies having any chest pain, shortness of breath, cough, abdominal pain, or any diarrhea. EXAMINATION: Blood pressure 139/54, pulse of 50, temperature 96. He is 96% on room air. General description is a middle-aged male lying in bed in no distress. Respiratory system: Unlabored breathing. Clear to auscultation anteriorly. Heart S1, S2. Regular rate and rhythm. ABDOMEN: Soft, no tenderness. LABS: BUN of 14, creatinine 0.91. Blood culture repeat 05/26/2018, has been negative. DIAGNOSTIC IMPRESSION AND PLAN: Patient with MRSA bacteremia secondary to PermCath infection that has been discontinued. Follow up blood culture has been negative. The patient will continue on vancomycin pharmacy to dose target of 15 for a total of 2 weeks from negative blood cultures which can be done through with dialysis. Continue supportive care. MMODL / IJN: [id number] /
[2018-05-30] MEDS: LACTATED RINGERS 1,000 ML IV SCH (02:15)
[2018-05-30] MEDS: SODIUM CHLORIDE 0.9% 500 ML 500 ML IV SCH (02:16)
[2018-05-30 03:48] LABS: Basophils % (A) 0 %; Eosinophils # (A) 0.3 k/uL (0-0.7); Eosinophils % (A) 6 %; HCT 27.1 % (39.0-53.0); HGB 8.9 gm/dL (13.0-17.5); Lymphocytes # (A) 0.8 k/uL (1.0-4.8); Lymphocytes % (A) 19 %; MCH 32.3 pg (25.0-35.0); MCV 97.8 fL (80.0-100.0); Mean Platelet Volume 7.1; Monocytes # (A) 0.3 k/uL (0-1.0); Monocytes % (A) 7 %; Neutrophils % (A) 66 %; Platelet Count 111 k/uL (150-450); RBC 2.77 m/uL (4.30-5.90); RDW 14.3 % (11.5-15.5); WBC 4.5 k/uL (3.8-10.6)
[2018-05-30 04:20] LABS: Calcium 9.1 mg/dL (8.4-10.2); Potassium 4.4 mmol/L (3.5-5.1)
[2018-05-30 04:26] LABS: Vancomycin,Random 25.1 ug/mL
[2018-05-30] MEDS: HYDROcodone/APAP 5-325MG 1 EACH TAB PO PRN ×3 (05:52→20:10)
[2018-05-30] MEDS: LEVOTHYROXINE 75 MCG TAB PO SCH (05:52)
[2018-05-30] MEDS: ALLOPURINOL 100 MG TAB PO SCH (07:53)
[2018-05-30] MEDS: busPIRone HCl 5 MG TAB PO SCH ×2 (07:54→20:13)
[2018-05-30] MEDS: MAGNESIUM OXIDE 400 MG TAB PO SCH (07:54)
[2018-05-30] MEDS: ASPIRIN 81 MG PO SCH (07:54)
[2018-05-30] MEDS: CARVEDILOL 12.5 MG TAB PO SCH ×2 (07:54→18:35)
[2018-05-30] MEDS: FUROSEMIDE 40 MG TAB PO SCH ×2 (07:54→20:13)
[2018-05-30] MEDS: SEVELAMER 800 MG TAB PO SCH ×4 (07:54→18:35)
[2018-05-30] MEDS: FAMOTIDINE 20 MG TAB PO SCH (07:54)
[2018-05-30] MEDS: CLOPIDOGREL 75 MG TAB PO SCH (07:54)
[2018-05-30] MEDS: CITALOPRAM HYDROBROMIDE 20 MG TAB PO SCH (07:54)
[2018-05-30] MEDS: CHOLECALCIFEROL 1,000 UNIT TAB PO SCH (07:54)
[2018-05-30] MEDS ORDERED: DESMOPRESSIN ACETATE 28 MCG in SODIUM CHLORIDE 0.9% 50 ML IV ONE (09:27)
--- NOTE | 2018-05-30 09:28 | PCN ---
PROCEDURE NOTE PREOP DIAGNOSIS: Acute on chronic renal failure. PROCEDURE: Ultrasound-guided 23 cm dialysis catheter right IJ. Sedation time is 27 minutes. The patient was brought to the central lab technician. Right side of the neck and chest was prepped and drapes applied in the usual sterile manner. Under local and IV sedation, ultrasound- guided micropuncture into the right internal jugular vein. Micropuncture guidewire was passed and 4-Bulgarian dilator advanced on top of the guidewire. After that, we created the tunnel, through the tunnel we brought 23 cm dialysis catheter. Dilator was advanced and sheath was advanced on top of the guidewire. Through the sheath, we introduced the dialysis catheter. Tip of catheter in superior vena cava and atrium flushed with heparin saline and hep-locked. Incision was closed with Vicryl and nylon. Dressing applied. Patient tolerated the procedure well. MMSOCORRO / SRINIVASN: [id number] /
--- NOTE | 2018-05-30 09:59 | P.PN ---
Subjective Patient is seen in follow-up for end-stage renal disease. He is maintained on hemodialysis on a Saturday schedule. Patient was noted to have MRSA bacteremia and the permacath was discontinued. He had a new catheter placed on May 29. He underwent hemodialysis yesterday and is currently seen was undergoing hemodialysis today. He is noted to have oozing from the catheter site. Otherwise no active complaints. Vital signs are stable. General: The patient appeared well nourished and normally developed. HEENT: Head exam is unremarkable. Neck is without jugular venous distension. LUNGS: Lungs are clear to auscultation and percussion. Breath sounds decreased. HEART: Rate and Rhythm are regular. First and second heart sounds normal. No murmurs, rubs or gallops. ABDOMEN: Abdominal exam reveals normal bowel sounds. Non-tender and non- distended. No evidence of peritonitis. EXTREMITITES: No clubbing, cyanosis, or edema. Objective - Vital Signs Vital signs: Vital Signs Temp 97.6 F 05/30/18 07:49 Pulse 83 05/30/18 07:49 Resp 18 05/30/18 08:00 BP 129/83 05/30/18 07:49 Pulse Ox 99 05/30/18 07:49 Intake & Output 05/29/18 05/30/18 05/30/18 18:59 06:59 18:59 Intake Total 450 200 Output Total 1000 Balance -550 200 Weight 94.5 kg 94.6 kg Intake: IV 50 Oral 400 200 Output: Urine 1000 Other: Voiding Method Toilet Urinal # Voids 0 2 - Labs CBC & Chem 7: 05/30/18 03:33 05/30/18 03:33 Labs: Abnormal Lab Results - Last 24 Hours (Table) 05/29/18 05/30/18 05/30/18 Range/Units 09:48 03:33 03:33 RBC 2.77 L (4.30-5.90) m/uL Hgb 8.9 L (13.0-17.5) gm/dL Hct 27.1 L (39.0-53.0) % Plt Count 111 L (150-450) k/uL Lymphocytes # 0.8 L (1.0-4.8) k/uL Sodium 136 L 136 L (137-145) mmol/L Carbon Dioxide 20 L (22-30) mmol/L BUN 89 H 41 H (9-20) mg/dL Creatinine 11.99 H* 7.00 H (0.66-1.25) mg/dL Microbiology - Last 24 Hours (Table) 05/26/18 04:01 Blood Culture - Preliminary Blood No Growth after 96 hours 05/27/18 08:33 Blood Culture - Preliminary Blood No Growth after 48 hours 05/26/18 08:33 Blood Culture - Preliminary Blood No Growth after 72 hours Assessment and Plan Plan: Assessment: 1. End-stage renal disease maintained on hemodialysis on a Saturday schedule via right chest permacath. 2. MRSA bacteremia status post removal of permacath. He had a new permacath placed on May 29. 3. Oozing from the catheter site. 4. Hypertension with chronic kidney disease. Controlled. 5. Systolic CHF. Currently compensated. 6. Hyperkalemia secondary to chronic kidney disease. Improved postdialysis. 7. Chronic kidney disease mineral bone disease maintained on Renvela. 8. Anemia of chronic kidney disease. Plan: Currently seen while undergoing hemodialysis. Next treatment on Saturday. I will give him 1 dose of IV DDAVP for the bleeding. Add Aranesp.
[2018-05-30] MEDS ORDERED: DARBEPOETIN ALFA 40 MCG/0.4 ML SYRINGE SQ SCH (10:00)
--- NOTE | 2018-05-30 11:02 | IR ---
EXAMINATION TYPE: IR cvc insert central tunneled DATE OF EXAM: 05/29/2018 COMPARISON: NONE HISTORY: Line placement. Fluoroscopy was provided to the referring clinician. 1.5 minutes of fluoroscopy provided.
[2018-05-30 11:55] LABS: Hepatitis B Surface AB- Quant 3.5 mIU/mL
[2018-05-30] MEDS ORDERED: VANCOMYCIN 1,500 MG in SODIUM CHLORIDE 0.9% 250 ML IVPB ONE (13:00)
[2018-05-30 13:49] VITALS: BMI 29.0
--- NOTE | 2018-05-30 16:19 | PN ---
PROGRESS NOTE DATE OF SERVICE: 05/30/2018 REASON FOR FOLLOWUP: MRSA bacteremia secondary to PermCath infection. INTERVAL HISTORY: The patient is currently afebrile. The patient did have a PermCath placed yesterday; however, the patient seemed to have a problem with bleeding from it. Currently controlled with a dry dressing. The patient denies having any chest pain or shortness of breath or cough. No abdominal pain and no diarrhea. PHYSICAL EXAMINATION: Blood pressure 135/80 with a pulse of 85, temperature of 98.2. He is 96% on room air. General description is a middle-aged male lying in bed in no distress. RESPIRATORY SYSTEM: Unlabored breathing. Clear to auscultation anteriorly. HEART: S1, S2. Regular rate and rhythm. ABDOMEN: Soft. No tenderness. LABS: Hemoglobin 8.9, white count 4.5 with a BUN of 41, creatinine of 7.0. Blood cultures 05/26 and 05/27 have been negative. DIAGNOSTIC IMPRESSION AND PLAN: Patient with methicillin-resistant Staphylococcus aeruginosa bacteremia secondary to PermCath that has been discontinued. The patient at this time is to continue with the vancomycin, Pharmacy to dose, target of 15, for a total of 2 weeks from his negative blood cultures. Continue with supportive care. MMODL / IJN: [id number] /
[2018-05-30] MEDS: ATORVASTATIN 80 MG TAB PO SCH (20:13)
[2018-05-31] MEDS: SODIUM CHLORIDE 0.9% 500 ML 500 ML IV SCH (00:16)
[2018-05-31] MEDS: LACTATED RINGERS 1,000 ML IV SCH (00:16)
--- NOTE | 2018-05-31 02:12 | PN ---
PROGRESS NOTE DATE OF SERVICE: May 30, 2018. PRESENTING COMPLAINT: Infected hemodialysis catheter. INTERVAL HISTORY: Patient admitted with infected hemodialysis catheter with MRSA infection. Catheter was placed yesterday but the patient did bleed ooze around the catheter overnight and this morning. Dr. Bautista was informed. Patient getting hemodialyzed today. 1 L was removed yesterday. Plan is to do the same today. REVIEW OF SYSTEMS: Done for constitutional, cardiovascular, GI, pulmonary; relevant findings as above. CURRENT MEDICATIONS: Current medications reviewed that include vancomycin. PHYSICAL EXAMINATION: VITAL SIGNS: Temperature 97.6, pulse 83, respiratory 18, blood pressure 129/83, pulse ox 99% on room air. GENERAL APPEARANCE: Lying in bed, awake. EYES: Pupils equal. Conjunctivae pale. HEENT: External appearance of nose and ears normal. Oral cavity normal. NECK: JVD not raised. Mass not palpable. RESPIRATORY effort normal. LUNGS: Decreased breath sounds. CARDIOVASCULAR: 1st and 2nd sounds no edema. ABDOMEN: Soft, nontender. Liver and spleen not palpable. PSYCHIATRY: Alert and oriented x3. Mood and affect normal. EXTREMITIES: Left upper arm amputation. CHEST WALL: Blood around the catheter site in the dressing. INVESTIGATIONS: Hemoglobin 8.9, potassium 4.4, BUN 41, creatinine 7.0. ASSESSMENT: 1. Acute infected hemodialysis catheter with blood cultures positive for MRSA. 2. End-stage kidney disease on hemodialysis. 3. Normocytic anemia secondary to chronic kidney disease. 4. Chronic obstructive pulmonary disease. 5. Mineral bone disease from chronic kidney disease. 6. Chronic congestive heart failure, combination of systolic and diastolic dysfunction. Ejection fraction 50-55 percent from underlying coronary artery disease. 7. Coronary artery disease. 8. Troponin positive in a setting of renal failure. No evidence of acute coronary syndrome. 9. Hypertension with chronic kidney disease. Continue with hemodialysis. Dr. Bautista is being informed about the oozing around the catheter site. The patient also get DDAVP. Go from there. MMODL / IJN: [id number] /
[2018-05-31] MEDS: LEVOTHYROXINE 75 MCG TAB PO SCH (06:09)
--- NOTE | 2018-05-31 08:10 | P.PN ---
Subjective Patient is seen in follow-up for end-stage renal disease. He is maintained on hemodialysis on a Saturday schedule. Patient was noted to have MRSA bacteremia and the permacath was discontinued. He had a new catheter placed on May 29. He underwent hemodialysis last 2 days. Bleeding from the catheter site is improved. Vital signs are stable. General: The patient appeared well nourished and normally developed. HEENT: Head exam is unremarkable. Neck is without jugular venous distension. LUNGS: Lungs are clear to auscultation and percussion. Breath sounds decreased. HEART: Rate and Rhythm are regular. First and second heart sounds normal. No murmurs, rubs or gallops. ABDOMEN: Abdominal exam reveals normal bowel sounds. Non-tender and non- distended. No evidence of peritonitis. EXTREMITITES: No clubbing, cyanosis, or edema. Objective - Vital Signs Vital signs: Vital Signs Temp 98.4 F 05/30/18 23:00 Pulse 66 05/30/18 23:00 Resp 20 05/30/18 23:00 BP 136/63 05/30/18 23:00 Pulse Ox 97 05/30/18 23:00 Intake & Output 05/30/18 05/31/18 05/31/18 18:59 06:59 18:59 Intake Total 200 100 Output Total 250 Balance 200 -150 Weight 94.6 kg 91.5 kg Intake: Oral 200 100 Output: Urine 250 Other: # Voids 1 - Labs CBC & Chem 7: 05/30/18 03:33 05/30/18 03:33 Labs: Microbiology - Last 24 Hours (Table) 05/26/18 04:01 Blood Culture - Preliminary Blood No Growth after 120 hours 05/27/18 08:33 Blood Culture - Preliminary Blood No Growth after 72 hours 05/26/18 08:33 Blood Culture - Preliminary Blood No Growth after 96 hours Assessment and Plan Plan: Assessment: 1. End-stage renal disease maintained on hemodialysis on a Saturday schedule via right chest permacath. 2. MRSA bacteremia status post removal of permacath. He had a new permacath placed on May 29. 3. Oozing from the catheter site. Improved. Status post IV DDAVP yesterday. He also required stitches. 4. Hypertension with chronic kidney disease. Controlled. 5. Systolic CHF. Currently compensated. 6. Hyperkalemia secondary to chronic kidney disease. Improved postdialysis. 7. Chronic kidney disease mineral bone disease maintained on Renvela. 8. Anemia of chronic kidney disease. Plan: Next hemodialysis on Saturday. Maintain Aranesp. IV vancomycin for 2 weeks with dialysis upon discharge per infectious disease.
[2018-05-31] MEDS: ASPIRIN 81 MG PO SCH (08:11)
[2018-05-31] MEDS: ALLOPURINOL 100 MG TAB PO SCH (08:11)
[2018-05-31] MEDS: CARVEDILOL 12.5 MG TAB PO SCH ×2 (08:11→16:43)
[2018-05-31] MEDS: SEVELAMER 800 MG TAB PO SCH ×3 (08:11→16:43)
[2018-05-31] MEDS: CITALOPRAM HYDROBROMIDE 20 MG TAB PO SCH (08:12)
[2018-05-31] MEDS: CLOPIDOGREL 75 MG TAB PO SCH (08:12)
[2018-05-31] MEDS: busPIRone HCl 5 MG TAB PO SCH ×2 (08:12→21:35)
[2018-05-31] MEDS: CHOLECALCIFEROL 1,000 UNIT TAB PO SCH (08:12)
[2018-05-31] MEDS: MAGNESIUM OXIDE 400 MG TAB PO SCH (08:13)
[2018-05-31] MEDS: FAMOTIDINE 20 MG TAB PO SCH (08:13)
[2018-05-31] MEDS: FUROSEMIDE 40 MG TAB PO SCH ×2 (08:13→22:28)
[2018-05-31] MEDS: HYDROcodone/APAP 5-325MG 1 EACH TAB PO PRN ×2 (08:45→16:43)
[2018-05-31 11:02] LABS: Calcium 9.2 mg/dL (8.4-10.2)
[2018-05-31] MEDS ORDERED: DESMOPRESSIN ACETATE IV ONE (14:57)
[2018-05-31] MEDS ORDERED: SODIUM CHLORIDE 0.9% IV ONE (14:57)
[2018-05-31 15:21] LABS: Basophils % (A) 0 %; Eosinophils # (A) 0.3 k/uL (0-0.7); Eosinophils % (A) 9 %; HCT 24.7 % (39.0-53.0); Lymphocytes # (A) 0.8 k/uL (1.0-4.8); Lymphocytes % (A) 24 %; MCH 32.2 pg (25.0-35.0); MCHC 32.4 g/dL (31.0-37.0); MCV 99.3 fL (80.0-100.0); Mean Platelet Volume 7.2; Monocytes # (A) 0.3 k/uL (0-1.0); Monocytes % (A) 9 %; Neutrophils # (A) 1.7 k/uL (1.3-7.7); Neutrophils % (A) 55 %; Platelet Count 134 k/uL (150-450); RBC 2.49 m/uL (4.30-5.90); RDW 14.2 % (11.5-15.5); WBC 3.1 k/uL (3.8-10.6)
[2018-05-31] MEDS: ATORVASTATIN 80 MG TAB PO SCH (21:35)
--- NOTE | 2018-05-31 21:49 | PN ---
PROGRESS NOTE DATE OF SERVICE: May 31, 2018. PRESENTING COMPLAINT: Infected hemodialysis catheter. INTERVAL HISTORY: This patient with infected hemodialysis catheter with MRSA had that removed. The catheter was placed. The patient has been oozing at the catheter site. Dr. Bautista did put some extra stitches yesterday because patient had been on Plavix and because of hemodialysis. Of course patient's clotting is a bit off. The patient had some more oozing today. Last dialysis was done yesterday. REVIEW OF SYSTEMS: Done for constitutional, cardiovascular, GI, pulmonary; relevant findings as above. CURRENT MEDICATIONS: Reviewed. PHYSICAL EXAMINATION: VITAL SIGNS: Temperature 98, pulse 60, respiration 20, blood pressure 145/73, pulse ox 96% on room air. GENERAL APPEARANCE: Lying in bed, awake. EYES: Pupils equal. Conjunctivae pale. HEENT: External appearance of nose and ears normal. Oral cavity normal. NECK: JVD not raised. Mass not palpable. RESPIRATORY: Effort normal. LUNGS: Decreased breath sounds. CHEST WALL: Chest wall dressing over the right upper chest wall with a pressure dressing in place. CARDIOVASCULAR: 1st and 2nd sounds normal. No edema. ABDOMEN: Soft, nontender. Liver and spleen not palpable. PSYCHIATRY: Alert and oriented times three. Mood and affect normal. EXTREMITIES: Left upper arm amputation. INVESTIGATIONS: White count 3.1, hemoglobin 8, platelets 134. ASSESSMENT: 1. Acute infected hemodialysis catheter with blood cultures positive MRSA that was removed and replaced. 2. End-stage kidney disease on hemodialysis. 3. Normocytic anemia secondary to chronic kidney disease. 4. Acute blood loss anemia from dialysis catheter site due to patient being on Plavix. 5. Chronic obstructive pulmonary disease. 6. Mineral bone disease from chronic kidney disease. 7. Chronic congestive heart failure, combination of systolic and diastolic dysfunction. Ejection fraction 50-55 percent from underlying coronary artery disease. 8. Coronary artery disease. 9. Positive troponin in the setting of renal failure. No evidence of acute coronary syndrome. 10.Hypertension with chronic kidney disease. PLAN: Spoke to Dr. Bautista, because hemoglobin did drop to 8, a unit of blood he ordered. Hopefully that should stop the bleeding. It may be noted that the patient has been on aspirin and Plavix. MMODL / IJN: [id number] /
[2018-05-31 23:03] LABS: HCT 25.7 % (39.0-53.0); HGB 8.3 gm/dL (13.0-17.5); Lymphocytes % (A) 30 %; MCHC 32.2 g/dL (31.0-37.0); MCV 99.3 fL (80.0-100.0); Mean Platelet Volume 7.4; Neutrophils % (A) 51 %; Platelet Count 144 k/uL (150-450); RBC 2.59 m/uL (4.30-5.90); RDW 14.3 % (11.5-15.5); WBC 3.5 k/uL (3.8-10.6)
[2018-05-31 23:04] LABS: Basophils % (A) 0 %; Eosinophils # (A) 0.3 k/uL (0-0.7); Eosinophils % (A) 9 %; Lymphocytes # (A) 1.1 k/uL (1.0-4.8); Monocytes # (A) 0.3 k/uL (0-1.0); Monocytes % (A) 7 %; Neutrophils # (A) 1.8 k/uL (1.3-7.7)
[2018-06-01] MEDS: LACTATED RINGERS 1,000 ML IV SCH (03:34)
[2018-06-01] MEDS: SODIUM CHLORIDE 0.9% 500 ML 500 ML IV SCH (03:34)
[2018-06-01] MEDS: LEVOTHYROXINE 75 MCG TAB PO SCH (05:59)
[2018-06-01] MEDS: SEVELAMER 800 MG TAB PO SCH ×3 (07:54→18:40)
[2018-06-01] MEDS: MAGNESIUM OXIDE 400 MG TAB PO SCH (07:54)
[2018-06-01] MEDS: CHOLECALCIFEROL 1,000 UNIT TAB PO SCH (07:54)
[2018-06-01] MEDS: CLOPIDOGREL 75 MG TAB PO SCH (07:55)
[2018-06-01] MEDS: CARVEDILOL 12.5 MG TAB PO SCH ×2 (07:55→18:40)
[2018-06-01] MEDS: busPIRone HCl 5 MG TAB PO SCH ×2 (07:55→20:04)
[2018-06-01] MEDS: HYDROcodone/APAP 5-325MG 1 EACH TAB PO PRN ×2 (07:55→20:07)
[2018-06-01] MEDS: ALLOPURINOL 100 MG TAB PO SCH (07:55)
[2018-06-01] MEDS: ASPIRIN 81 MG PO SCH (07:55)
[2018-06-01] MEDS: CITALOPRAM HYDROBROMIDE 20 MG TAB PO SCH (07:55)
[2018-06-01] MEDS: FAMOTIDINE 20 MG TAB PO SCH (07:55)
--- NOTE | 2018-06-01 08:24 | P.PN ---
Subjective Patient is seen in follow-up for end-stage renal disease. He is maintained on hemodialysis on a Saturday schedule. Patient was noted to have MRSA bacteremia and the permacath was discontinued. He had a new catheter placed on May 29. Bleeding from the catheter site is improved. Hemoglobin stable. Vital signs are stable. General: The patient appeared well nourished and normally developed. HEENT: Head exam is unremarkable. Neck is without jugular venous distension. LUNGS: Lungs are clear to auscultation and percussion. Breath sounds decreased. HEART: Rate and Rhythm are regular. First and second heart sounds normal. No murmurs, rubs or gallops. ABDOMEN: Abdominal exam reveals normal bowel sounds. Non-tender and non- distended. No evidence of peritonitis. EXTREMITITES: No clubbing, cyanosis, or edema. Objective - Vital Signs Vital signs: Vital Signs Temp 97.7 F 06/01/18 06:43 Pulse 75 06/01/18 06:43 Resp 18 06/01/18 06:43 BP 181/84 06/01/18 06:43 Pulse Ox 95 06/01/18 06:43 Intake & Output 05/31/18 06/01/18 06/01/18 18:59 06:59 18:59 Weight 93 kg Other: Voiding Method Toilet Urinal - Labs CBC & Chem 7: 05/31/18 22:37 05/31/18 10:23 Labs: Abnormal Lab Results - Last 24 Hours (Table) 05/31/18 05/31/18 05/31/18 Range/Units 10:23 14:37 22:37 WBC 3.1 L 3.5 L (3.8-10.6) k/uL RBC 2.49 L 2.59 L (4.30-5.90) m/uL Hgb 8.0 L 8.3 L (13.0-17.5) gm/dL Hct 24.7 L 25.7 L (39.0-53.0) % Plt Count 134 L 144 L (150-450) k/uL Lymphocytes # 0.8 L (1.0-4.8) k/uL BUN 29 H (9-20) mg/dL Creatinine 5.60 H (0.66-1.25) mg/dL Glucose 114 H (74-99) mg/dL Microbiology - Last 24 Hours (Table) 05/26/18 04:01 Blood Culture - Final Blood No Growth after 144 hours 05/27/18 08:33 Blood Culture - Preliminary Blood No Growth after 96 hours 05/26/18 08:33 Blood Culture - Preliminary Blood No Growth after 120 hours Assessment and Plan Plan: Assessment: 1. End-stage renal disease maintained on hemodialysis on a Saturday schedule via right chest permacath. 2. MRSA bacteremia status post removal of permacath. He had a new permacath placed on May 29. 3. Oozing from the catheter site. Improved. Status post IV DDAVP on May 30. He also required stitches. 4. Hypertension with chronic kidney disease. 5. Systolic CHF. Currently compensated. 6. Hyperkalemia secondary to chronic kidney disease. Improved postdialysis. 7. Chronic kidney disease mineral bone disease maintained on Renvela. 8. Anemia of chronic kidney disease. 9. Chronic kidney disease mineral bone disease maintained on Renvela. Plan: Next hemodialysis on Saturday. Maintain Aranesp. IV vancomycin for 2 weeks with dialysis upon discharge per infectious disease. If continues to have bleeding from the catheter site, I will repeat a dose of DDAVP today.
[2018-06-01 08:55] LABS: Calcium 9.5 mg/dL (8.4-10.2); Potassium 4.2 mmol/L (3.5-5.1)
[2018-06-01] MEDS: FUROSEMIDE 80 MG TAB PO SCH ×2 (08:57→20:04)
[2018-06-01 09:01] LABS: Basophils % (A) 0 %; Eosinophils # (A) 0.3 k/uL (0-0.7); Eosinophils % (A) 7 %; HCT 26.4 % (39.0-53.0); HGB 8.9 gm/dL (13.0-17.5); Lymphocytes % (A) 22 %; MCH 33.3 pg (25.0-35.0); MCHC 33.6 g/dL (31.0-37.0); Mean Platelet Volume 7.2; Monocytes # (A) 0.3 k/uL (0-1.0); Monocytes % (A) 6 %; Neutrophils # (A) 2.9 k/uL (1.3-7.7); Neutrophils % (A) 63 %; Platelet Count 152 k/uL (150-450); RBC 2.67 m/uL (4.30-5.90); RDW 14.1 % (11.5-15.5); WBC 4.6 k/uL (3.8-10.6)
[2018-06-01] MEDS ORDERED: DESMOPRESSIN ACETATE 28 MCG in SODIUM CHLORIDE 0.9% 50 ML IV ONE (10:00)
[2018-06-01] MEDS: ATORVASTATIN 80 MG TAB PO SCH (20:04)
--- NOTE | 2018-06-01 21:50 | PN ---
PROGRESS NOTE DATE OF SERVICE: 06/01/2018. PRESENTING COMPLAINT: Infected hemodialysis catheter. INTERVAL HISTORY: This is a patient with infected hemodialysis catheter that was removed with MRSA infection. Replacement catheter has been oozing because patient has been on aspirin and Plavix. This morning, there is slight more oozing on the dressing site, Dr. Bautista changed the same. The patient is due for the next hemodialysis tomorrow. REVIEW OF SYSTEMS: Done for constitutional, cardiovascular, GI, pulmonary; relevant findings as above. CURRENT MEDICATIONS: Reviewed, that include vancomycin. PHYSICAL EXAMINATION: Temperature 97.7, pulse 75, respiratory rate 18, blood pressure 167/91, pulse ox 95% on room air. GENERAL APPEARANCE: Lying in bed, awake. EYES: Pupils equal. Conjunctivae normal. HEENT: External nose and ears normal. Oral cavity normal. NECK: JVD not raised. Mass not palpable. Respiratory effort normal. LUNGS: Decreased breath sounds. Chest wall dressing on the right chest wall with some slight blood on the dressing. CARDIOVASCULAR: First and second sounds normal. No edema. ABDOMEN: Soft, nontender. Liver and spleen not palpable. PSYCHIATRY: Alert and 3 mood and affect normal. EXTREMITIES: Left upper extremity below-knee amputation. INVESTIGATIONS: White count 4.6, hemoglobin 8.9, potassium 4.2. ASSESSMENT: 1. Acute infected with dialysis catheter with blood cultures positive for methicillin resistant Staphylococcus aureus, that was removed and replaced. 2. Bleeding at the dialysis catheter site from patient being on Plavix, slowing down. 3. End-stage kidney disease on hemodialysis. 4. Normocytic anemia secondary to chronic kidney disease. 5. Acute blood loss anemia from dialysis catheter site due to patient being on Plavix. 6. Chronic obstructive pulmonary disease. 7. Mineral bone disease from chronic kidney disease. 8. Chronic congestive heart failure, systolic and diastolic dysfunction. Ejection fraction 50% to 55%, from underlying coronary artery disease. 9. Coronary artery disease. 10.Positive troponin in a setting of renal failure. No evidence of acute coronary syndrome. 11.Hypertensive chronic kidney disease. PLAN: Spoke to Dr. Bautista, who did take down the dressing. We are hoping there is no further bleeding. The patient should hopefully get dialyzed tomorrow and she will go home. MMODL / IJN: [id number] /
--- NOTE | 2018-06-02 00:17 | PN ---
PROGRESS NOTE DATE OF SERVICE: 06/01/2018. REASON FOR FOLLOWUP: MRSA bacteremia secondary to PermCath infection. INTERVAL HISTORY: The patient is currently afebrile, has been breathing comfortably. Bleeding at the PermCath site has resolved with dry dressing. Denies having any chest pain. No cough. No abdominal pain no diarrhea. EXAMINATION: Blood pressure 139/64, pulse 73, temperature 98.7, he is 96% on room air. General description is a middle-aged male lying in bed in no distress respiratory system. Unlabored breathing clear to auscultation anteriorly heart S1, S2. Regular rate and rhythm soft. No tenderness. LABS: Hemoglobin 8.8, white count 4.6, BUN of 38, creatinine 7.63. DIAGNOSTIC IMPRESSION AND PLAN: Patient with MRSA bacteremia secondary to PermCath infection that has been discontinued. Blood culture level has been negative. Patient to continue on vancomycin pharmacy to dose till 06/10/2018 to finish a course of therapy. Continue supportive care. MMODL / IJN: [id number] /
[2018-06-02] MEDS: LACTATED RINGERS 1,000 ML IV SCH (00:46)
[2018-06-02] MEDS: SODIUM CHLORIDE 0.9% 500 ML 500 ML IV SCH (00:47)
[2018-06-02] MEDS: LEVOTHYROXINE 75 MCG TAB PO SCH (05:53)
[2018-06-02] MEDS: CITALOPRAM HYDROBROMIDE 20 MG TAB PO SCH (08:03)
[2018-06-02] MEDS: busPIRone HCl 5 MG TAB PO SCH (08:03)
[2018-06-02] MEDS: CARVEDILOL 12.5 MG TAB PO SCH (08:03)
[2018-06-02] MEDS: SEVELAMER 800 MG TAB PO SCH ×2 (08:03→11:45)
[2018-06-02] MEDS: CHOLECALCIFEROL 1,000 UNIT TAB PO SCH (08:03)
[2018-06-02] MEDS: CLOPIDOGREL 75 MG TAB PO SCH (08:03)
[2018-06-02] MEDS: ALLOPURINOL 100 MG TAB PO SCH (08:04)
[2018-06-02] MEDS: FUROSEMIDE 80 MG TAB PO SCH (08:04)
[2018-06-02] MEDS: FAMOTIDINE 20 MG TAB PO SCH (08:04)
[2018-06-02] MEDS: ASPIRIN 81 MG PO SCH (08:04)
[2018-06-02] MEDS: MAGNESIUM OXIDE 400 MG TAB PO SCH (08:08)
--- NOTE | 2018-06-02 08:34 | P.PN ---
Subjective Patient is seen in follow-up for end-stage renal disease. He is maintained on hemodialysis on a Saturday schedule. Patient was noted to have MRSA bacteremia and the permacath was discontinued. He had a new catheter placed on May 29. Bleeding from the catheter site is improved. Hemoglobin stable at 8.9 as of yesterday. Vital signs are stable. General: The patient appeared well nourished and normally developed. HEENT: Head exam is unremarkable. Neck is without jugular venous distension. LUNGS: Lungs are clear to auscultation and percussion. Breath sounds decreased. HEART: Rate and Rhythm are regular. First and second heart sounds normal. No murmurs, rubs or gallops. ABDOMEN: Abdominal exam reveals normal bowel sounds. Non-tender and non- distended. No evidence of peritonitis. EXTREMITITES: No clubbing, cyanosis, or edema. Objective - Vital Signs Vital signs: Vital Signs Temp 98.4 F 06/02/18 07:00 Pulse 62 06/02/18 07:00 Resp 16 06/02/18 07:00 BP 105/76 06/02/18 07:00 Pulse Ox 97 06/02/18 07:00 Intake & Output 06/01/18 06/02/18 06/02/18 18:59 06:59 18:59 Intake Total 240 Balance 240 Weight 87 kg Intake: Oral 240 Other: Voiding Method Urinal - Labs CBC & Chem 7: 06/01/18 08:13 06/01/18 08:13 Labs: Abnormal Lab Results - Last 24 Hours (Table) 06/01/18 06/01/18 Range/Units 08:13 08:13 RBC 2.67 L (4.30-5.90) m/uL Hgb 8.9 L (13.0-17.5) gm/dL Hct 26.4 L (39.0-53.0) % BUN 38 H (9-20) mg/dL Creatinine 7.63 H* (0.66-1.25) mg/dL Microbiology - Last 24 Hours (Table) 05/27/18 08:33 Blood Culture - Preliminary Blood No Growth after 120 hours 05/26/18 08:33 Blood Culture - Final Blood No Growth after 144 hours 05/26/18 04:01 Blood Culture - Final Blood No Growth after 144 hours Assessment and Plan Plan: Assessment: 1. End-stage renal disease maintained on hemodialysis on a Saturday schedule via right chest permacath. 2. MRSA bacteremia status post removal of permacath. He had a new permacath placed on May 29. 3. Oozing from the catheter site. Improved. Status post IV DDAVP on May 30. He also required stitches. 4. Hypertension with chronic kidney disease. 5. Systolic CHF. Currently compensated. 6. Hyperkalemia secondary to chronic kidney disease. Improved postdialysis. 7. Chronic kidney disease mineral bone disease maintained on Renvela. 8. Anemia of chronic kidney disease. 9. Chronic kidney disease mineral bone disease maintained on Renvela. Plan: Hemodialysis today. Maintain Aranesp. IV vancomycin for 2 weeks with dialysis upon discharge per infectious disease.
[2018-06-02 10:42] LABS: Calcium 9.2 mg/dL (8.4-10.2); Potassium 4.2 mmol/L (3.5-5.1)
[2018-06-02 10:48] LABS: Vancomycin,Random 28.1 ug/mL
[2018-06-02 15:32] VITALS: BP 181/81; PULSE 60; RESP 18; TEMP 97.9
--- NOTE | 2018-06-02 19:33 | PN ---
PROGRESS NOTE DATE OF SERVICE: 06/02/2018 REASON FOR FOLLOWUP: MRSA bacteremia secondary to PermCath infection. INTERVAL HISTORY: The patient was seen on rounds this afternoon. The patient has been afebrile. He is waiting for dialysis and possible discharge. Denies having any chest pain or shortness of breath or cough. No abdominal pain or any diarrhea. PHYSICAL EXAMINATION: Blood pressure 181/81 with a pulse of 60, temperature 97.9. He is 99% on room air. General description is a middle-aged male lying in bed in no distress. RESPIRATORY SYSTEM: Unlabored breathing. Clear to auscultation anteriorly. HEART: S1, S2. Regular rate and rhythm. ABDOMEN: Soft. No tenderness. LABS: BUN of 48, creatinine 9.22. Vancomycin trough was 28.1. DIAGNOSTIC IMPRESSION AND PLAN: Patient with methicillin-resistant Staphylococcus aeruginosa bacteremia secondary to PermCath infection, status post removal of the infected catheter. Follow-up blood culture has been negative. Patient will continue with vancomycin, Pharmacy to dose, target of 15, for another 10 days to finish his course of therapy with close outpatient followup. MMODL / IJN: [id number] /
--- NOTE | 2018-06-03 08:46 | DS ---
DISCHARGE SUMMARY DATE OF ADMISSION: 05/23/2018 DATE OF DISCHARGE: 06/02/2018 FINAL DIAGNOSES: 1. Infected hemodialysis catheter with blood cultures positive with methicillin- resistant Staphylococcus aureus that was removed and replaced. 2. End-stage kidney disease on hemodialysis. 3. Normocytic anemia secondary to chronic kidney disease. 4. Acute blood loss anemia from dialysis catheter site due to patient being on Plavix. 5. Chronic obstructive pulmonary disease. 6. Mineral bone disease from chronic kidney disease. 7. Chronic congestive heart failure from systolic and diastolic dysfunction. Ejection fraction 50% to 55% from underlying coronary artery disease. 8. Coronary artery disease. 9. Positive troponin in a setting of renal failure. No evidence of acute coronary syndrome. 10.Hypertensive chronic kidney disease. 11.Chronic left below elbow amputation. HOSPITAL COURSE: This patient presented with infected hemodialysis catheter with blood cultures positive for MRSA. Hemodialysis catheter was removed, another one was placed. There was some bleeding locally which eventually settled down. The patient was hemodialyzed today. PHYSICAL EXAMINATION: On examination, afebrile, pulse 60, respirations 18, blood pressure noted. LUNGS: Fair entry. Right upper chest dialysis catheter. INVESTIGATIONS: Potassium 4.2. Hemoglobin 8.9. CONSULTATION: Dr. Awad from Nephrology; Dr. Beasley from Infectious Disease, Dr. Javi Bautista from , Dr. Alfonso Mendoza from Cardiology. Initially patient did have a 2-D echocardiogram that showed the EF of 55% to 60%. DISCHARGE MEDICATIONS: 1. Allopurinol 100 mg a day. 2. Aspirin 81 mg a day. 3. Celexa 20 mg a day. 4. Synthroid 75 mcg a day. 5. Magnesium oxide 400 mg a day. 6. Lipitor 80 mg q.h.s. 7. Pepcid 20 mg p.o. daily. 8. Coreg 12.5 p.o. b.i.d. 9. Plavix 75 mg p.o. daily. 10.Auryxia 2 tablets p.o. t.i.d. with meals. 11.Vitamin D3, 2000 units p.o. daily. 12.Lasix 80 mg b.i.d. 13.Norvasc 10 mg p.o. daily. 14.Hydralazine 25 mg p.o. t.i.d. 15.Ventolin HFA 2 puffs q.6 p.r.n. 16.BuSpar 5 mg b.i.d. 17.Aranesp 40 mcg subcutaneous every 7 days. Follow up with Dr. Hastings on 06/16/2018. Follow up with Dr. Beasley on 06/09/2018. [facility] to infuse vancomycin with dialysis, script was faxed to [facility]. Vancomycin dosing per Dr. Beasley per the levels. MMODL / IJN: [id number] /
== END 2018-06-02 16:41 | disposition home or self-care (01) | DRG 270 ==
LOC: EC 20:26 → 2SICU 23:27 → 4MS4W 05-26 21:51
PROVIDERS: ADMIT Hospitalist; ATTEND Hospitalist
PROC: 02PY03Z Removal of Infusion Device from Great Vessel, Open Approach (ICD-10-PCS; principal; 2018-05-24)
PROC: 02HV33Z Insertion of Infusion Device into Superior Vena Cava, Percutaneous Approach (ICD-10-PCS; 2018-05-29 17:00)
PROC: 5A1D70Z Performance of Urinary Filtration, Intermittent, Less than 6 Hours Per Day (ICD-10-PCS; 2018-05-29 17:00)
DX: T82.7XXA Infection and inflammatory reaction due to other cardiac and vascular devices, implants and grafts, initial encounter (principal); A41.02 Sepsis due to Methicillin resistant Staphylococcus aureus; N18.6 End stage renal disease; D62 Acute posthemorrhagic anemia; I13.2 Hypertensive heart and chronic kidney disease with heart failure and with stage 5 chronic kidney disease, or end stage renal disease; I50.42 Chronic combined systolic (congestive) and diastolic (congestive) heart failure; N17.9 Acute kidney failure, unspecified; D63.1 Anemia in chronic kidney disease; E03.9 Hypothyroidism, unspecified; E78.5 Hyperlipidemia, unspecified; E83.39 Other disorders of phosphorus metabolism; E87.5 Hyperkalemia; E88.89 Other specified metabolic disorders; I25.10 Atherosclerotic heart disease of native coronary artery without angina pectoris; I25.5 Ischemic cardiomyopathy; J44.9 Chronic obstructive pulmonary disease, unspecified; K21.9 Gastro-esophageal reflux disease without esophagitis; M89.9 Disorder of bone, unspecified; Y84.8 Other medical procedures as the cause of abnormal reaction of the patient, or of later complication, without mention of misadventure at the time of the procedure; Z79.02 Long term (current) use of antithrombotics/antiplatelets; Z79.82 Long term (current) use of aspirin; Z82.49 Family history of ischemic heart disease and other diseases of the circulatory system; Z83.3 Family history of diabetes mellitus; Z87.891 Personal history of nicotine dependence; Z89.212 Acquired absence of left upper limb below elbow; Z95.5 Presence of coronary angioplasty implant and graft; Z99.2 Dependence on renal dialysis; Z79.890 Hormone replacement therapy; Z79.899 Other long term (current) drug therapy; R74.8 Abnormal levels of other serum enzymes; T45.525A Adverse effect of antithrombotic drugs, initial encounter; Z88.0 Allergy status to penicillin; Z84.1 Family history of disorders of kidney and ureter
CPT/HCPCS: 36415; 36558; 71046; 76937; 77001; 80048; 80053; 80202; 81001; 82550; 82553; 83605; 83735; 84100; 84484; 85025; 85027; 85610; 85730; 86704; 86706; 86850; 86900; 86901; 87040; 87070; 87077; 87086; 87186; 87205; 87340; 87502; 90935; 93005; 93306; 94760; 96365; 96366; 96368; 96375; 99285

== ENCOUNTER 2019-11-30 02:50 | Inpatient (IN) | payer MEDICARE, BC ==
[2019-11-30] MEDS ORDERED: SODIUM CHLORIDE 0.9% 1,000 ML IV STA ×2 (03:28)
[2019-11-30] MEDS ORDERED: ACETAMINOPHEN TAB 500 MG TAB PO STA (03:28)
[2019-11-30] MEDS ORDERED: SODIUM CHLORIDE 0.9% 500 ML 500 ML IV STA (03:28)
--- NOTE | 2019-11-30 03:30 | ED ---
Fever HPI - General Chief Complaint: Back Pain/Injury Stated Complaint: Back pain Time Seen by Provider: 11/30/19 02:54 Source: patient, EMS, RN notes reviewed, old records reviewed Mode of arrival: EMS Limitations: physical limitation - History of Present Illness Initial Comments: This is a 51-year-old male DF for evaluation. Patient was a for evaluation regards to chest pain. Patient has difficulty breathing severe shortness of breath does not feel well. Patient is also complaining of severe back pain. He admits to fevers with diaphoresis and shortness MD Complaint: fever, malaise, weakness -: days(s) Temperature Source: subjective Context: sick contacts, multiple patients with similar symptoms Associated Symptoms: chills, myalgias, cough, chest pain, shortness of breath, abdominal pain Treatments Prior to Arrival: none - Related Data Home Medications Medication Instructions Recorded Confirmed Allopurinol [Zyloprim] 100 mg PO QAM 01/16/18 12/02/19 Aspirin EC [Ecotrin Low Dose] 81 mg PO DAILY 01/16/18 12/02/19 Citalopram Hydrobromide [CeleXA] 20 mg PO QAM 01/16/18 12/02/19 Levothyroxine Sodium [Synthroid] 75 mcg PO DAILY 01/16/18 12/02/19 Magnesium Oxide [Mag-Ox] 400 mg PO DAILY 01/16/18 12/02/19 Auryxia 3 tab PO TID-W/MEALS 03/31/18 12/02/19 Furosemide [Lasix] 80 mg PO BID 03/31/18 12/02/19 Albuterol Inhaler [Ventolin Hfa 2 puff INHALATION RT-Q6H PRN 11/30/19 12/02/19 Inhaler] Auryxia 1 - 2 tab PO BID PRN 11/30/19 12/02/19 Famotidine [Pepcid] 20 mg PO QAM 11/30/19 12/02/19 Vitamin D2 (Unknown Strength) 1 tab PO DAILY@12 11/30/19 12/02/19 amLODIPine [Norvasc] 10 mg PO QAM 11/30/19 12/02/19 busPIRone HCl [Buspar] 20 mg PO BID 11/30/19 12/02/19 Previous Rx's Medication Instructions Recorded Atorvastatin [Lipitor] 80 mg PO HS #30 tab 01/29/18 Carvedilol [Coreg*] 12.5 mg PO AC-BID #60 tab 01/30/18 hydrALAZINE HCL [Apresoline] 25 mg PO TID #90 tab 04/01/18 Allergies Allergy/AdvReac Type Severity Reaction Status Date / Time Penicillins Allergy Unknown Verified 12/02/19 10:04 Childhood Review of Systems ROS Statement: Those systems with pertinent positive or pertinent negative responses have been documented in the HPI. ROS Other: All systems not noted in ROS Statement are negative. Past Medical History Past Medical History: Coronary Artery Disease (CAD), Heart Failure, COPD, GERD/Reflux, Hyperlipidemia, Hypertension, Renal Disease, Thyroid Disorder Additional Past Medical History / Comment(s): Chronic kidney failure with hemodialysis on Saturday, Saturday and Fridays with last time being 03/28/18, chronic anemia, cardiomyopathy, c"blood clot in my heart years ago", hypothyroid, post op I&D L submax abscess pt had respiratory failure and was vented. 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 Past Anesthesia/Blood Transfusion Reactions: No Reported Reaction Additional Past Anesthesia/Blood Transfusion Reaction / Comment(s): Pt has received blood without reaction. Past Psychological History: No Psychological Hx Reported Smoking Status: Current every day smoker Past Alcohol Use History: None Reported Past Drug Use History: None Reported - Past Family History Father Family Medical History: Diabetes Mellitus, Hypertension, Renal Disease Additional Family Medical History / Comment(s): Father was on hemodialysis Mother Family Medical History: Hypertension General Exam Limitations: physical limitation General appearance: alert, in no apparent distress Head exam: Present: atraumatic, normocephalic, normal inspection Eye exam: Present: normal appearance, PERRL, EOMI. Absent: scleral icterus, conjunctival injection, periorbital swelling ENT exam: Present: normal exam, mucous membranes moist Neck exam: Present: normal inspection. Absent: tenderness, meningismus, lymphadenopathy Respiratory exam: Present: normal lung sounds bilaterally. Absent: respiratory distress, wheezes, rales, rhonchi, stridor Cardiovascular Exam: Present: regular rate, normal rhythm, normal heart sounds. Absent: systolic murmur, diastolic murmur, rubs, gallop, clicks GI/Abdominal exam: Present: soft, normal bowel sounds. Absent: distended, tenderness, guarding, rebound, rigid Extremities exam: Present: normal inspection, full ROM, normal capillary refill. Absent: tenderness, pedal edema, joint swelling, calf tenderness Back exam: Present: normal inspection Neurological exam: Present: alert, oriented X3, CN II-XII intact Psychiatric exam: Present: normal affect, normal mood Skin exam: Present: warm, dry, intact, normal color. Absent: rash Course Vital Signs 11/30/19 11/30/19 11/30/19 02:57 03:10 03:25 Temperature 101.1 F H 101.1 F H Pulse Rate 72 71 72 Pulse Rate [ Pulse Oximetery ] Respiratory 30 H 30 H 28 H Rate Blood Pressure 120/95 79/53 99/79 Blood Pressure [Right Thigh Supine] O2 Sat by Pulse 83 L 88 L 88 L Oximetry 11/30/19 11/30/19 11/30/19 03:40 03:55 04:04 Temperature 100.7 F H 100.5 F H Pulse Rate 71 70 72 Pulse Rate [ Pulse Oximetery ] Respiratory 30 H 28 H 28 H Rate Blood Pressure 122/49 105/68 94/54 Blood Pressure [Right Thigh Supine] O2 Sat by Pulse 89 L 90 L 83 L Oximetry 11/30/19 11/30/19 11/30/19 04:24 04:35 04:45 Temperature 99.7 F H Pulse Rate 68 70 72 Pulse Rate [ Pulse Oximetery ] Respiratory 24 Rate Blood Pressure 109/79 Blood Pressure [Right Thigh Supine] O2 Sat by Pulse 89 L Oximetry 11/30/19 11/30/19 11/30/19 04:46 04:55 05:37 Temperature 101.0 F H Pulse Rate 72 76 71 Pulse Rate [ Pulse Oximetery ] Respiratory 22 Rate Blood Pressure 99/58 Blood Pressure [Right Thigh Supine] O2 Sat by Pulse 91 L Oximetry 11/30/19 11/30/19 11/30/19 06:50 08:00 09:23 Temperature 99.4 F 98.8 F Pulse Rate 74 74 Pulse Rate [ 72 Pulse Oximetery ] Respiratory 18 22 Rate Blood Pressure 103/73 Blood Pressure 115/66 [Right Thigh Supine] O2 Sat by Pulse 93 L 90 L Oximetry 11/30/19 11/30/19 11/30/19 09:34 11:31 11:32 Temperature 97.8 F Pulse Rate 75 Pulse Rate [ 74 74 Pulse Oximetery ] Respiratory 20 Rate Blood Pressure Blood Pressure 124/78 [Right Thigh Supine] O2 Sat by Pulse 90 L Oximetry 11/30/19 11/30/19 11/30/19 13:04 13:16 14:00 Temperature 97.9 F Pulse Rate 74 76 Pulse Rate [ 61 Pulse Oximetery ] Respiratory Rate Blood Pressure Blood Pressure 104/72 [Right Thigh Supine] O2 Sat by Pulse 96 Oximetry - Reevaluation(s) Reevaluation #1: Medical records reviewed Medical Decision Making - Medical Decision Making 59 male DF for evaluation pneumonia chest pain hypoxia complicated by COPD and CHF multipartite multifactorial respiratory failure failure - Lab Data Result diagrams: 12/07/19 05:46 12/07/19 05:46 Lab Results 11/30/19 11/30/19 11/30/19 Range/Units 03:30 03:30 03:30 WBC 10.6 (3.8-10.6) k/uL RBC 3.09 L (4.30-5.90) m/uL Hgb 10.5 L (13.0-17.5) gm/dL Hct 31.4 L (39.0-53.0) % MCV 101.5 H (80.0-100.0) fL MCH 33.9 (25.0-35.0) pg MCHC 33.4 (31.0-37.0) g/dL RDW 13.6 (11.5-15.5) % Plt Count 235 (150-450) k/uL Neutrophils % 87 % Lymphocytes % 5 % Monocytes % 5 % Eosinophils % 1 % Basophils % 0 % Neutrophils # 9.3 H (1.3-7.7) k/uL Lymphocytes # 0.6 L (1.0-4.8) k/uL Monocytes # 0.5 (0-1.0) k/uL Eosinophils # 0.1 (0-0.7) k/uL Basophils # 0.0 (0-0.2) k/uL Macrocytosis Slight PT 9.6 (9.0-12.0) sec INR 0.9 (<1.2) APTT 26.4 (22.0-30.0) sec D-Dimer 2.40 H (<0.60) mg/L FEU Sodium 126 L (137-145) mmol/L Potassium 3.8 (3.5-5.1) mmol/L Chloride 84 L (98-107) mmol/L Carbon Dioxide 26 (22-30) mmol/L Anion Gap 16 mmol/L BUN 60 H (9-20) mg/dL Creatinine 10.50 H* (0.66-1.25) mg/dL Est GFR (CKD-EPI)AfAm 6 (>60 ml/min/1.73 sqM) Est GFR (CKD-EPI)NonAf 5 (>60 ml/min/1.73 sqM) Glucose 107 H (74-99) mg/dL Plasma Lactic Acid Victorino (0.7-2.0) mmol/L Calcium 9.4 (8.4-10.2) mg/dL Magnesium 2.3 (1.6-2.3) mg/dL Ferritin 2237.0 H (22.0-322.0) ng/mL Total Bilirubin 0.9 (0.2-1.3) mg/dL AST 21 (17-59) U/L ALT 12 (4-49) U/L Alkaline Phosphatase 80 (38-126) U/L Lactate Dehydrogenase 337 (313-618) U/L C-Reactive Protein 418.4 H (<10.0) mg/L NT-Pro-B Natriuret Pep pg/mL Total Protein 6.4 (6.3-8.2) g/dL Albumin 3.5 (3.5-5.0) g/dL Procalcitonin (0.02-0.09) ng/mL Coronavirus (PCR) (Not Detected) 11/30/19 11/30/19 11/30/19 Range/Units 03:30 03:30 03:30 WBC (3.8-10.6) k/uL RBC (4.30-5.90) m/uL Hgb (13.0-17.5) gm/dL Hct (39.0-53.0) % MCV (80.0-100.0) fL MCH (25.0-35.0) pg MCHC (31.0-37.0) g/dL RDW (11.5-15.5) % Plt Count (150-450) k/uL Neutrophils % % Lymphocytes % % Monocytes % % Eosinophils % % Basophils % % Neutrophils # (1.3-7.7) k/uL Lymphocytes # (1.0-4.8) k/uL Monocytes # (0-1.0) k/uL Eosinophils # (0-0.7) k/uL Basophils # (0-0.2) k/uL Macrocytosis PT (9.0-12.0) sec INR (<1.2) APTT (22.0-30.0) sec D-Dimer (<0.60) mg/L FEU Sodium (137-145) mmol/L Potassium (3.5-5.1) mmol/L Chloride (98-107) mmol/L Carbon Dioxide (22-30) mmol/L Anion Gap mmol/L BUN (9-20) mg/dL Creatinine (0.66-1.25) mg/dL Est GFR (CKD-EPI)AfAm (>60 ml/min/1.73 sqM) Est GFR (CKD-EPI)NonAf (>60 ml/min/1.73 sqM) Glucose (74-99) mg/dL Plasma Lactic Acid Victorino 0.8 (0.7-2.0) mmol/L Calcium (8.4-10.2) mg/dL Magnesium (1.6-2.3) mg/dL Ferritin (22.0-322.0) ng/mL Total Bilirubin (0.2-1.3) mg/dL AST (17-59) U/L ALT (4-49) U/L Alkaline Phosphatase (38-126) U/L Lactate Dehydrogenase (313-618) U/L C-Reactive Protein (<10.0) mg/L NT-Pro-B Natriuret Pep 49832 pg/mL Total Protein (6.3-8.2) g/dL Albumin (3.5-5.0) g/dL Procalcitonin 3.90 H (0.02-0.09) ng/mL Coronavirus (PCR) (Not Detected) 11/30/19 Range/Units 04:00 WBC (3.8-10.6) k/uL RBC (4.30-5.90) m/uL Hgb (13.0-17.5) gm/dL Hct (39.0-53.0) % MCV (80.0-100.0) fL MCH (25.0-35.0) pg MCHC (31.0-37.0) g/dL RDW (11.5-15.5) % Plt Count (150-450) k/uL Neutrophils % % Lymphocytes % % Monocytes % % Eosinophils % % Basophils % % Neutrophils # (1.3-7.7) k/uL Lymphocytes # (1.0-4.8) k/uL Monocytes # (0-1.0) k/uL Eosinophils # (0-0.7) k/uL Basophils # (0-0.2) k/uL Macrocytosis PT (9.0-12.0) sec INR (<1.2) APTT (22.0-30.0) sec D-Dimer (<0.60) mg/L FEU Sodium (137-145) mmol/L Potassium (3.5-5.1) mmol/L Chloride (98-107) mmol/L Carbon Dioxide (22-30) mmol/L Anion Gap mmol/L BUN (9-20) mg/dL Creatinine (0.66-1.25) mg/dL Est GFR (CKD-EPI)AfAm (>60 ml/min/1.73 sqM) Est GFR (CKD-EPI)NonAf (>60 ml/min/1.73 sqM) Glucose (74-99) mg/dL Plasma Lactic Acid Victorino (0.7-2.0) mmol/L Calcium (8.4-10.2) mg/dL Magnesium (1.6-2.3) mg/dL Ferritin (22.0-322.0) ng/mL Total Bilirubin (0.2-1.3) mg/dL AST (17-59) U/L ALT (4-49) U/L Alkaline Phosphatase (38-126) U/L Lactate Dehydrogenase (313-618) U/L C-Reactive Protein (<10.0) mg/L NT-Pro-B Natriuret Pep pg/mL Total Protein (6.3-8.2) g/dL Albumin (3.5-5.0) g/dL Procalcitonin (0.02-0.09) ng/mL Coronavirus (PCR) Not Detected (Not Detected) - EKG Data -: EKG Interpreted by Me (EKG shows sinus rhythm of 70, NC 162, QRS 134, QTc 520) - Radiology Data Radiology results: report reviewed (Chest x-rays negative for acute disease), image reviewed Critical Care Time Critical Care Time: Yes Total Critical Care Time: 31 Disposition Clinical Impression: Congestive heart failure, Coronary artery disease, Acute on chronic kidney failure, Sepsis, Nosocomial pneumonia, Fever, Hypoxia Disposition: ADMITTED IP TO THIS [facility] Condition: Serious Is patient prescribed a controlled substance at d/c from ED?: No
[2019-11-30] MEDS ORDERED: IPRATROPIUM-ALBUTEROL 3 ML NEB INHALATION STA (03:42)
[2019-11-30] MEDS ORDERED: fentaNYL (PF) 50 MCG/ML 2 ML AMP IV PRN (03:42)
[2019-11-30 03:51] LABS: Basophils % (A) 0 %; Eosinophils # (A) 0.1 k/uL (0-0.7); Eosinophils % (A) 1 %; HCT 31.4 % (39.0-53.0); HGB 10.5 gm/dL (13.0-17.5); Lymphocytes # (A) 0.6 k/uL (1.0-4.8); Lymphocytes % (A) 5 %; MCH 33.9 pg (25.0-35.0); MCHC 33.4 g/dL (31.0-37.0); MCV 101.5 fL (80.0-100.0); Macrocytosis Slight; Mean Platelet Volume 7.7; Monocytes # (A) 0.5 k/uL (0-1.0); Monocytes % (A) 5 %; Neutrophils # (A) 9.3 k/uL (1.3-7.7); Neutrophils % (A) 87 %; Platelet Count 235 k/uL (150-450); RBC 3.09 m/uL (4.30-5.90); RDW 13.6 % (11.5-15.5); WBC 10.6 k/uL (3.8-10.6)
[2019-11-30 04:06] LABS: INR 0.9 (<1.2); Partial Thromboplastin Time 26.4 sec (22.0-30.0); Prothrombin Time 9.6 sec (9.0-12.0)
[2019-11-30 04:07] LABS: Albumin 3.5 g/dL (3.5-5.0); Calcium 9.4 mg/dL (8.4-10.2); Magnesium 2.3 mg/dL (1.6-2.3); Potassium 3.8 mmol/L (3.5-5.1); Total Bilirubin 0.9 mg/dL (0.2-1.3); Total Protein 6.4 g/dL (6.3-8.2)
[2019-11-30 04:18] LABS: D-Dimer 2.4 mg/L FEU (<0.60)
--- NOTE | 2019-11-30 04:30 | XR ---
EXAMINATION TYPE: XR chest 1V portable DATE OF EXAM: 11/30/2019 COMPARISON: 05/29/2018 HISTORY: Pneumonia. Short of breath. TECHNIQUE: FINDINGS: Heart is normal. There is some mild interstitial infiltrate and atelectasis right lower lob e. There is no heart failure. There are chest leads. Thoracic aorta is atheromatous. There is no sign of pleural effusion. IMPRESSION: Mild interstitial pneumonia and atelectasis right lower lobe is increased compared to old exam. Normal heart.
[2019-11-30] MEDS ORDERED: ALBUTEROL NEBULIZED 2.5 MG/3 ML INHALATION PRN (04:36)
[2019-11-30] MEDS ORDERED: PNEUMONIA PROTOCOL UTILIZED 1 EACH MISC PO PRN (04:36)
[2019-11-30] MEDS ORDERED: LEVOFLOXACIN 750MG-D5W PMX 750 MG in DEXTROSE/WATER 1 150ML.BAG IVPB STA (04:36)
[2019-11-30] MEDS ORDERED: VANCOMYCIN IV PER PHARMACY 1 EACH MISC MISCELLANE PRN (04:37)
[2019-11-30] MEDS ORDERED: CEFEPIME 2 GM in SODIUM CHLORIDE 0.9% 100 ML IVPB ONE (04:45)
[2019-11-30] MEDS ORDERED: VANCOMYCIN 1,500 MG in SODIUM CHLORIDE 0.9% 250 ML IVPB ONE (06:00)
[2019-11-30 06:29] LABS: C Reactive Protein 418.4 mg/L (<10.0)
[2019-11-30] MEDS ORDERED: KETOROLAC 60 MG/2 ML VIAL IM STA (07:54)
--- NOTE | 2019-11-30 08:12 | CT ---
EXAMINATION TYPE: CT thor lumbar spine wo con DATE OF EXAM: 11/30/2019 COMPARISON: None. HISTORY: Mid to low back pain CT DLP: 1640.6 mGycm Automated exposure control for dose reduction was used. FINDINGS: Thoracolumbar spine shows loss of normal curvature with straightening. There is S-shaped scoliosis wi th dextroconvex curvature centered mid thoracic spine and levoconvex curvature centered lower thoraci c spine series 2 fracture or dislocation is seen. Vertebral body heights are preserved. Moderate disc space narrowing and spurring with disc calcification at lumbosacral junction is present. There is mi ld to moderate anterior and lateral lying in the lower thoracic spine. Spinal canal is grossly preser marco on sagittal images. Review of axial images shows [id number] facet arthropathy L3-L4 through the L5-S1 level. There is moderate broad disc bulge with central disc protrusion effacing the anterior thecal sac at L4-L5 l evel axial image 156 and causing fairly moderate bilateral inferior neural foraminal narrowing. Mild- to-moderate broad-based disc bulge L5-S1 on axial image 166. There is partial visualization of fall for tiny right greater than left pleural effusions and associa sophia compressive atelectasis in both bases. There is moderate to severe three-vessel coronary artery c alcification and/or stents. Moderate calcified plaque of aorta extends into iliac branch vessels. Some contrast or hyperdense mat erial seen filling colonic loops in the lower abdomen. Cortical thinning in both kidneys is noted. De pendent gallbladder sludge and/or small stones in gallbladder is seen. IMPRESSION: Scoliotic curvature and multilevel degenerative changes as detailed above. No acute findi ngs are evident.
[2019-11-30] MEDS ORDERED: ENOXAPARIN 40 MG/0.4 ML SYRINGE SQ SCH (09:00)
[2019-11-30] MEDS: ENOXAPARIN 30 MG/0.3 ML SYRINGE SQ SCH (09:08)
[2019-11-30] MEDS: IPRATROPIUM-ALBUTEROL 3 ML NEB INHALATION SCH ×4 (09:23→20:18)
--- NOTE | 2019-11-30 15:25 | XR ---
Lumbosacral spine HISTORY: Low back pain, right leg pain Correlation to CT scan same date There is gas distended loops of bowel within the abdomen. Loss of disc height is present at L5-S1. Th ere is multilevel spondylosis. Lumbar vertebral bodies show preserved height. Mild anterior wedging p resent at L1. Vacuum phenomenon present at L5-S1. Sclerosis present in the posterior elements of the lumbar spine consistent with facet arthropathy. Dense vascular calcifications present in the aortoili ac distribution, iliac arteries are ectatic. No evident spondylolysis. Retained contrast is noted wit hin some bowel loops. IMPRESSION: Degenerative disc disease and facet arthropathy. There may be an underlying ileus. Additi onal findings above.
--- NOTE | 2019-11-30 16:45 | P.CNOR ---
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 The patient states he has experienced intermittent right leg pain for "awhile", although over the last 5-6 days the pain has increased, until yesterday when he could not take the pain anymore. Therefore, he called EMS. Upon arrival to the ER, CT of the lumbar spine was obtained and revealed multilevel degenerative changes and no acute fractures. Venous doppler study has been obtained of the bilateral lower extremities with results pending. He states there is no injury or trauma to the right leg. He states the pain begins in the posterior hip and shoots all the way down his leg into his toes. He states the pain is not affected with weightbearing. He states the pain comes and goes without warning, although it did become constant over the past few days. The patient is unaware of any exacerbating or relieving factors. Currently, he states since being in the emergency department his pain has subsided. At the time of my exam, the patient is complaining of no pain in his right leg. Patient denies back pain. The patient denies bowel or bladder dysfunction. P atient denies numbness or weakness of the right lower extremity. Patient states he has not been evaluated for his back or leg pain in the past. He states he does not take medication at home for the pain. No additional complaints are voiced. He denies chest pain, shortness of breath, nausea, vomiting. Patient did have a fever of 101.1 upon arrival, although he is currently afebrile. Vital signs stable. Past Medical History Past Medical History: Coronary Artery Disease (CAD), Heart Failure, COPD, GERD/Reflux, Hyperlipidemia, Hypertension, Renal Disease, Thyroid Disorder Additional Past Medical History / Comment(s): Chronic kidney failure with hemodialysis on Saturday, Saturday and Fridays with last time being 03/28/18, chronic anemia, cardiomyopathy, c"blood clot in my heart years ago", hypothyroid, post op I&D L submax abscess pt had respiratory failure and was vented. 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 Past Anesthesia/Blood Transfusion Reactions: No Reported Reaction Additional Past Anesthesia/Blood Transfusion Reaction / Comm: Pt has received blood without reaction. Past Psychological History: No Psychological Hx Reported Smoking Status: Current every day smoker Past Alcohol Use History: None Reported Past Drug Use History: None Reported - Past Family History Father Family Medical History: Diabetes Mellitus, Hypertension, Renal Disease Additional Family Medical History / Comment(s): Father was on hemodialysis Mother Family Medical History: Hypertension Medications and Allergies Home Medications Medication Instructions Recorded Confirmed Type Allopurinol [Zyloprim] 100 mg PO QAM 01/16/18 11/30/19 History Aspirin EC [Ecotrin Low Dose] 81 mg PO DAILY 01/16/18 11/30/19 History Citalopram Hydrobromide [CeleXA] 20 mg PO QAM 01/16/18 11/30/19 History Levothyroxine Sodium [Synthroid] 75 mcg PO DAILY 01/16/18 11/30/19 History Magnesium Oxide [Mag-Ox] 400 mg PO DAILY 01/16/18 11/30/19 History Atorvastatin [Lipitor] 80 mg PO HS #30 tab 01/29/18 11/30/19 Rx Carvedilol [Coreg*] 12.5 mg PO AC-BID #60 tab 01/30/18 11/30/19 Rx Auryxia 3 tab PO TID-W/MEALS 03/31/18 11/30/19 History Furosemide [Lasix] 80 mg PO BID 03/31/18 11/30/19 History hydrALAZINE HCL [Apresoline] 25 mg PO TID #90 tab 04/01/18 11/30/19 Rx Albuterol Inhaler [Ventolin Hfa 2 puff INHALATION RT-Q6H PRN 11/30/19 11/30/19 History Inhaler] Auryxia 1 - 2 tab PO BID PRN 11/30/19 11/30/19 History Famotidine [Pepcid] 20 mg PO QAM 11/30/19 11/30/19 History Vitamin D2 (Unknown Strength) 1 tab PO DAILY@12 11/30/19 11/30/19 History amLODIPine [Norvasc] 10 mg PO QAM 11/30/19 11/30/19 History busPIRone HCl [Buspar] 20 mg PO BID 11/30/19 11/30/19 History Allergies Allergy/AdvReac Type Severity Reaction Status Date / Time Penicillins Allergy Unknown Verified 11/30/19 11:33 Childhood Physical Examination On examination, the patient is lying in bed in no apparent distress. He is alert and oriented 3. Patient has nasal cannula in place. His head appears normocephalic and atraumatic. His breathing appears nonlabored. On inspection of the bilateral upper extremities, patient has a below the elbow amputation of the left forearm. His bilateral upper extremities show no signs of trauma or injury. On inspection of the left lower extremity, there were no obvious deformities or signs of trauma. On inspection of the right lower extremity, the skin is intact and there are no open wounds or lacerations. No signs of erythema, warmth, fluctuance. There are no signs of infection. No swelling. There is no pain on palpation of the right hip, thigh, knee, lower leg, ankle, foot. No pain with passive range of motion of the right hip, right knee, right ankle. Patient is able to perform straight leg raise without pain or issue. No pain with logrolling. Patient has good strength and range of motion of the right ankle. Motor and sensory function appear to be intact over the lower extremity. The right lower extremity is warm and well perfused with brisk capillary refill distally. Dorsalis pedis pulse +2. No pain on palpation of the bilateral calves . Results CT scan lumbar spine without contrast 11/30/19: Multilevel degenerative changes with no acute fractures visualized. - Labs Labs: Abnormal Lab Results - Last 24 Hours (Table) 11/30/19 11/30/19 11/30/19 Range/Units 03:30 03:30 03:30 RBC 3.09 L (4.30-5.90) m/uL Hgb 10.5 L (13.0-17.5) gm/dL Hct 31.4 L (39.0-53.0) % MCV 101.5 H (80.0-100.0) fL Neutrophils # 9.3 H (1.3-7.7) k/uL Lymphocytes # 0.6 L (1.0-4.8) k/uL D-Dimer 2.40 H (<0.60) mg/L FEU Sodium 126 L (137-145) mmol/L Chloride 84 L (98-107) mmol/L BUN 60 H (9-20) mg/dL Creatinine 10.50 H* (0.66-1.25) mg/dL Glucose 107 H (74-99) mg/dL C-Reactive Protein 418.4 H (<10.0) mg/L H & H 11/30/19 Range/Units 03:30 Hgb 10.5 L (13.0-17.5) gm/dL Hct 31.4 L (39.0-53.0) % Coagulation 11/30/19 Range/Units 03:30 INR 0.9 (<1.2) Result Diagrams: 11/30/19 03:30 11/30/19 03:30 Assessment and Plan Assessment: Right leg pain, possible radiculopathy. Plan: - I discussed the clinical and imaging findings with the patient. I discussed the patient with our spine surgeon Dr. Edmondson. - Symptomatic treatment is recommended at this time, with PRN pain management. Dickey and Toradol have been ordered per Dr. Edmondson. - Patient may weight bear as tolerated on the right lower extremity and increase mobilization as tolerated. - We will re-assess patient tomorrow, and if his symptoms worsen, we will consider additional imaging with MRI.
--- NOTE | 2019-11-30 17:26 | P.HPIM ---
History of Present Illness H&P Date: 11/30/19 Chief Complaint: Fever History of presenting complaint: This is a 59-year-old patient of Dr. Srini Hastings. Chronic stable medical conditions include end-stage kidney disease on hemodialysis Saturday and Saturday with the right arm fistula, anxiety, COPD, minimal bone disease, congestive heart failure EF 50%, coronary artery disease and left below elbow amputation. Patient's presents with symptoms of increasing pain in the right lower extremity starting off in the right lower back going on for over 6-7 days. Having a difficult to walk. Patient is also noted to have fevers has a chronic cough is an active smoker. Some baseline shortness of breath he states. Admitted for the same. Patient stated that about a week ago he and his brother bought a bowstring and to use the area to sit up and down quite a bit. And aspirin the pain started. 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 Smoking a pack a day for close to 37 years. No alcohol. Physical examination: VITAL SIGNS: 101.1, 72, 30, 120/95, 83% on room air GENERAL: BMI 25.8, laying in bed, tired appearing. EYES: Pupils equal. Conjunctiva normal. HEENT: External appearance of nose and ears normal, oral cavity grossly normal. NECK: JVD not raised; masses not palpable. HEART: First and second heart sounds are normal; no edema. LUNGS: Respiratory rate increased, decreased breath sounds some wheezing. ABDOMEN: Soft, nontender, liver spleen not palpable, no masses palpable. PSYCH: Alert and oriented x3; mood and affect normal. MUSCULOSKELETAL: No obvious localized tenderness in the lower lumbar spine or the SI joint. Able to raise both the lower extremities to 60 NEUROLOGICAL: Cranial nerves grossly intact; no facial asymmetry, power and sensation grossly intact. LYMPHATICS: No lymph nodes palpable in the axilla and neck INVESTIGATIONS, reviewed in the clinical context: White count 10.6 hemoglobin 10.5 platelets 235 sodium 126 potassium 3.8 bun 60 creatinine 10.5 Ferritin 2237, CRP 418, pro calcitonin 3.9 Chest x-ray film personally reviewed by me-shows infiltrates EKG tracing personally reviewed by me-sinus rhythm and nonspecific T-wave changes Thoracolumbar lumbar CT spine-multilevel DJD changes no acute findings Thoracolumbar spine x-ray DJD changes Assessment: -This is a patient now presents with fevers, cough shortness of breath which interestingly is not his predominant complaint.Respirations up to 30. Likely causes pneumonia with sepsis. COVID-19 results are pending. -Acute COPD exacerbation in a current smoker -Chronic nicotine dependence patient cigarette smoker -Lower lumbar spine and the adjoining area of pain appears to be sciatica with pain down the right leg. Orthopedics consulted -Coronary artery disease -Congestive heart failure EF not known -GERD -Hyperlipidemia -Essential hypertension -End-stage kidney disease on hemodialysis Saturday and Saturday -Hypothyroid Plan: Patient started on vancomycin and cefepime. Consultations made to orthopedics pulmonary and ID. Home medications resumed. Care was discussed with the patient question were answered. Nicotine patch. Past Medical History Past Medical History: Coronary Artery Disease (CAD), Heart Failure, COPD, GERD/Reflux, Hyperlipidemia, Hypertension, Renal Disease, Thyroid Disorder Additional Past Medical History / Comment(s): Chronic kidney failure with hemo dialysis on Saturday, Saturday and Fridays with last time being 03/28/18, chronic anemia, cardiomyopathy, c"blood clot in my heart years ago", hypothyroid, post op I&D L submax abscess pt had respiratory failure and was vented. 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 Past Anesthesia/Blood Transfusion Reactions: No Reported Reaction Additional Past Anesthesia/Blood Transfusion Reaction / Comment(s): Pt has received blood without reaction. Past Psychological History: No Psychological Hx Reported Smoking Status: Current every day smoker Past Alcohol Use History: None Reported Past Drug Use History: None Reported - Past Family History Father Family Medical History: Diabetes Mellitus, Hypertension, Renal Disease Additional Family Medical History / Comment(s): Father was on hemodialysis Mother Family Medical History: Hypertension Medications and Allergies Home Medications Medication Instructions Recorded Confirmed Type Allopurinol [Zyloprim] 100 mg PO QAM 01/16/18 11/30/19 History Aspirin EC [Ecotrin Low Dose] 81 mg PO DAILY 01/16/18 11/30/19 History Citalopram Hydrobromide [CeleXA] 20 mg PO QAM 01/16/18 11/30/19 History Levothyroxine Sodium [Synthroid] 75 mcg PO DAILY 01/16/18 11/30/19 History Magnesium Oxide [Mag-Ox] 400 mg PO DAILY 01/16/18 11/30/19 History Atorvastatin [Lipitor] 80 mg PO HS #30 tab 01/29/18 11/30/19 Rx Carvedilol [Coreg*] 12.5 mg PO AC-BID #60 tab 01/30/18 11/30/19 Rx Auryxia 3 tab PO TID-W/MEALS 03/31/18 11/30/19 History Furosemide [Lasix] 80 mg PO BID 03/31/18 11/30/19 History hydrALAZINE HCL [Apresoline] 25 mg PO TID #90 tab 04/01/18 11/30/19 Rx Albuterol Inhaler [Ventolin Hfa 2 puff INHALATION RT-Q6H PRN 11/30/19 11/30/19 History Inhaler] Auryxia 1 - 2 tab PO BID PRN 11/30/19 11/30/19 History Famotidine [Pepcid] 20 mg PO QAM 11/30/19 11/30/19 History Vitamin D2 (Unknown Strength) 1 tab PO DAILY@12 11/30/19 11/30/19 History amLODIPine [Norvasc] 10 mg PO QAM 11/30/19 11/30/19 History busPIRone HCl [Buspar] 20 mg PO BID 11/30/19 11/30/19 History Allergies Allergy/AdvReac Type Severity Reaction Status Date / Time Penicillins Allergy Unknown Verified 11/30/19 11:33 Childhood Physical Exam Vitals: Vital Signs Temp Pulse Pulse Resp BP BP Pulse Ox 11/30/19 15:55 78 18 11/30/19 15:47 78 18 11/30/19 14:00 97.9 F 61 104/72 96 11/30/19 13:16 76 11/30/19 13:04 74 11/30/19 11:32 74 11/30/19 11:31 97.8 F 74 20 124/78 90 L 11/30/19 09:34 75 11/30/19 09:23 74 11/30/19 08:00 98.8 F 72 22 115/66 90 L 11/30/19 06:50 99.4 F 74 18 103/73 93 L 11/30/19 05:37 101.0 F H 71 22 99/58 91 L 11/30/19 04:55 76 11/30/19 04:46 72 11/30/19 04:45 72 11/30/19 04:35 70 11/30/19 04:24 99.7 F H 68 24 109/79 89 L 11/30/19 04:04 72 28 H 94/54 83 L 11/30/19 03:55 100.5 F H 70 28 H 105/68 90 L 11/30/19 03:40 100.7 F H 71 30 H 122/49 89 L 11/30/19 03:25 72 28 H 99/79 88 L 11/30/19 03:10 101.1 F H 71 30 H 79/53 88 L 11/30/19 02:57 101.1 F H 72 30 H 120/95 83 L Intake and Output 11/30/19 11/30/19 11/30/19 06:59 14:59 22:59 Intake Total 100 Balance 100 Intake: Oral 100 Other: Weight 81.647 kg Results CBC & Chem 7: 11/30/19 03:30 11/30/19 03:30 Labs: Abnormal Lab Results - Last 24 Hours (Table) 11/30/19 11/30/19 11/30/19 Range/Units 03:30 03:30 03:30 RBC 3.09 L (4.30-5.90) m/uL Hgb 10.5 L (13.0-17.5) gm/dL Hct 31.4 L (39.0-53.0) % MCV 101.5 H (80.0-100.0) fL Neutrophils # 9.3 H (1.3-7.7) k/uL Lymphocytes # 0.6 L (1.0-4.8) k/uL D-Dimer 2.40 H (<0.60) mg/L FEU Sodium 126 L (137-145) mmol/L Chloride 84 L (98-107) mmol/L BUN 60 H (9-20) mg/dL Creatinine 10.50 H* (0.66-1.25) mg/dL Glucose 107 H (74-99) mg/dL Ferritin 2237.0 H (22.0-322.0) ng/mL C-Reactive Protein 418.4 H (<10.0) mg/L Procalcitonin (0.02-0.09) ng/mL 11/30/19 Range/Units 03:30 RBC (4.30-5.90) m/uL Hgb (13.0-17.5) gm/dL Hct (39.0-53.0) % MCV (80.0-100.0) fL Neutrophils # (1.3-7.7) k/uL Lymphocytes # (1.0-4.8) k/uL D-Dimer (<0.60) mg/L FEU Sodium (137-145) mmol/L Chloride (98-107) mmol/L BUN (9-20) mg/dL Creatinine (0.66-1.25) mg/dL Glucose (74-99) mg/dL Ferritin (22.0-322.0) ng/mL C-Reactive Protein (<10.0) mg/L Procalcitonin 3.90 H (0.02-0.09) ng/mL Microbiology - Last 24 Hours (Table) 11/30/19 03:30 Blood Culture - Final Blood Thrombosis Risk Factor Assmnt - Choose All That Apply Each Factor Represents 1 point: Abnormal pulmonary function (COPD), Obesity (BMI >25) Each Risk Factor Represents 3 Points: History of DVT/PE Thrombosis Risk Factor Assessment Total Risk Factor Score: 5 Thrombosis Risk Factor Assessment Level: High Risk
[2019-11-30] MEDS ORDERED: NA PHOS,M-B/NA PHOS,DI-BA 133 ML ENEMA RECTAL PRN (17:31)
[2019-11-30] MEDS ORDERED: MAG HYDROX/AL HYDROX/SIMETH 30 ML CUP PO PRN (17:31)
[2019-11-30] MEDS ORDERED: NALOXONE 0.4 MG/ML 1 ML VIAL IV PRN (17:31)
[2019-11-30] MEDS ORDERED: MELATONIN 3 MG TABLET PO PRN (17:31)
[2019-11-30] MEDS ORDERED: LACTULOSE 20 GM/30 ML CUP PO PRN (17:31)
[2019-11-30] MEDS ORDERED: ALPRAZolam 0.25 MG TAB PO PRN (17:31)
[2019-11-30] MEDS ORDERED: CALCIUM CARBONATE 500 MG CHEWABLE PO PRN (17:31)
[2019-11-30] MEDS ORDERED: ONDANSETRON 4 MG/2 ML VIAL IVP PRN (17:31)
--- NOTE | 2019-11-30 17:55 | P.CNPUL ---
History of Present Illness Consult date: 11/30/19 Reason for consult: dyspnea, COPD, pneumonia Chief complaint: Back pain and leg pain History of present illness: This is a 59-year-old male with prior medical history of chronic renal failure on hemodialysis patient came into the hospital with for 5 day history of progressive back pain and neck pain, he was noted to be tachypneic as well as febrile up to 101 chest x-ray shows developing right lower lobe infiltrate the blood cultures are positive for gram-positive cocci in clusters patient likely is having sepsis due to gram-positive cocci source however is not clear with a component of COPD exacerbation as well and possibly right-sided pneumonia, patient's has significant history of congestive heart failure COPD dyslipidemia hypertension hypertensive cardiovascular disease and 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, CT of lumbar spine shows DJD and Doppler study results are pending, besides having leg pain no other numbness or weakness are present she does have ongoing shortness of breath intermittent cough just mostly nonproductive Review of Systems All systems: negative Past Medical History Past Medical History: Coronary Artery Disease (CAD), Heart Failure, COPD, GERD/Reflux, Hyperlipidemia, Hypertension, Renal Disease, Thyroid Disorder Additional Past Medical History / Comment(s): Chronic kidney failure with hemodialysis on Saturday, Saturday and Fridays with last time being 03/28/18, chronic anemia, cardiomyopathy, c"blood clot in my heart years ago", hypothyroid, post op I&D L submax abscess pt had respiratory failure and was vented. 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 Past Anesthesia/Blood Transfusion Reactions: No Reported Reaction Additional Past Anesthesia/Blood Transfusion Reaction / Comment(s): Pt has received blood without reaction. Past Psychological History: No Psychological Hx Reported Smoking Status: Current every day smoker Past Alcohol Use History: None Reported Past Drug Use History: None Reported - Past Family History Father Family Medical History: Diabetes Mellitus, Hypertension, Renal Disease Additional Family Medical History / Comment(s): Father was on hemodialysis Mother Family Medical History: Hypertension Medications and Allergies Home Medications Medication Instructions Recorded Confirmed Type Allopurinol [Zyloprim] 100 mg PO QAM 01/16/18 11/30/19 History Aspirin EC [Ecotrin Low Dose] 81 mg PO DAILY 01/16/18 11/30/19 History Citalopram Hydrobromide [CeleXA] 20 mg PO QAM 01/16/18 11/30/19 History Levothyroxine Sodium [Synthroid] 75 mcg PO DAILY 01/16/18 11/30/19 History Magnesium Oxide [Mag-Ox] 400 mg PO DAILY 01/16/18 11/30/19 History Atorvastatin [Lipitor] 80 mg PO HS #30 tab 01/29/18 11/30/19 Rx Carvedilol [Coreg*] 12.5 mg PO AC-BID #60 tab 01/30/18 11/30/19 Rx Auryxia 3 tab PO TID-W/MEALS 03/31/18 11/30/19 History Furosemide [Lasix] 80 mg PO BID 03/31/18 11/30/19 History hydrALAZINE HCL [Apresoline] 25 mg PO TID #90 tab 04/01/18 11/30/19 Rx Albuterol Inhaler [Ventolin Hfa 2 puff INHALATION RT-Q6H PRN 11/30/19 11/30/19 History Inhaler] Auryxia 1 - 2 tab PO BID PRN 11/30/19 11/30/19 History Famotidine [Pepcid] 20 mg PO QAM 11/30/19 11/30/19 History Vitamin D2 (Unknown Strength) 1 tab PO DAILY@12 11/30/19 11/30/19 History amLODIPine [Norvasc] 10 mg PO QAM 11/30/19 11/30/19 History busPIRone HCl [Buspar] 20 mg PO BID 11/30/19 11/30/19 History Allergies Allergy/AdvReac Type Severity Reaction Status Date / Time Penicillins Allergy Unknown Verified 11/30/19 11:33 Childhood Physical Exam Vitals: Vital Signs Temp Pulse Pulse Resp BP BP Pulse Ox 11/30/19 15:55 78 18 11/30/19 15:47 78 18 11/30/19 14:00 97.9 F 61 104/72 96 11/30/19 13:16 76 11/30/19 13:04 74 05/18/20 11:32 74 11/30/19 11:31 97.8 F 74 20 124/78 90 L 11/30/19 09:34 75 11/30/19 09:23 74 11/30/19 08:00 98.8 F 72 22 115/66 90 L 11/30/19 06:50 99.4 F 74 18 103/73 93 L 11/30/19 05:37 101.0 F H 71 22 99/58 91 L 11/30/19 04:55 76 11/30/19 04:46 72 11/30/19 04:45 72 11/30/19 04:35 70 11/30/19 04:24 99.7 F H 68 24 109/79 89 L 11/30/19 04:04 72 28 H 94/54 83 L 11/30/19 03:55 100.5 F H 70 28 H 105/68 90 L 11/30/19 03:40 100.7 F H 71 30 H 122/49 89 L 11/30/19 03:25 72 28 H 99/79 88 L 11/30/19 03:10 101.1 F H 71 30 H 79/53 88 L 11/30/19 02:57 101.1 F H 72 30 H 120/95 83 L Intake and Output 11/30/19 11/30/19 11/30/19 06:59 14:59 22:59 Intake Total 100 Balance 100 Intake: Oral 100 Other: Weight 81.647 kg - Constitutional General appearance: average body habitus, disheveled - EENT Eyes: PERRLA Ears: bilateral: normal - Neck Neck: normal ROM Carotids: bilateral: upstroke normal Thyroid: bilateral: normal size - Respiratory Respiratory: bilateral: diminished - Cardiovascular Rhythm: regular Heart sounds: normal: S1, S2 - Gastrointestinal General gastrointestinal: normal bowel sounds, soft - Integumentary Integumentary: decreased turgor - Neurologic Neurologic: CNII-XII intact - Musculoskeletal Musculoskeletal: generalized weakness, strength equal bilaterally - Psychiatric Psychiatric: A&O x's 3, appropriate affect Results - Laboratory Findings CBC and BMP: 11/30/19 03:30 11/30/19 03:30 PT/INR, D-dimer PT 9.6 sec (9.0-12.0) 11/30/19 03:30 INR 0.9 (<1.2) 11/30/19 03:30 D-Dimer 2.40 mg/L FEU (<0.60) H 11/30/19 03:30 Abnormal lab findings: Abnormal Labs 11/30/19 11/30/19 11/30/19 03:30 03:30 03:30 RBC 3.09 L Hgb 10.5 L Hct 31.4 L MCV 101.5 H Neutrophils # 9.3 H Lymphocytes # 0.6 L D-Dimer 2.40 H Sodium 126 L Chloride 84 L BUN 60 H Creatinine 10.50 H* Glucose 107 H Ferritin 2237.0 H C-Reactive Protein 418.4 H Procalcitonin 11/30/19 03:30 RBC Hgb Hct MCV Neutrophils # Lymphocytes # D-Dimer Sodium Chloride BUN Creatinine Glucose Ferritin C-Reactive Protein Procalcitonin 3.90 H - Diagnostic Findings Chest x-ray: report reviewed, image reviewed Assessment and Plan Assessment: Right lower lobe developing pneumonia Acute COPD exacerbation Tracheobronchitis Gram-positive bacteremia cluster source not clear Severe degree of degenerative joint disease of spine Right lower extremity pain Chronic renal failure stage V on hemodialysis Plan: Agree with broad-spectrum antibiotic with cefepime time along with vancomycin Would recommend infectious disease evaluation Continue breathing treatments, steroids Hemodialysis as planned Further plan of care as per clinical response of the patient Time with Patient: Greater than 30
[2019-11-30] MEDS: CARVEDILOL 12.5 MG TAB PO SCH (18:10)
[2019-11-30] MEDS: KETOROLAC 30 MG/ML 1 ML VIAL IVP SCH ×2 (18:10→22:19)
[2019-11-30] MEDS: methylPREDNISolone SOD SUCCI 40 MG/ML 1 ML VIAL IV SCH (18:10)
[2019-11-30] MEDS: NICOTINE 21MG/24HR PATCH TRANSDERM SCH (18:10)
[2019-11-30] MEDS: ALLOPURINOL 100 MG TAB PO SCH (18:10)
[2019-11-30] MEDS: AURYXIA PO SCH (18:11)
[2019-11-30 20:57] LABS: Glucose,Whole Blood 110 mg/dL (75-99)
[2019-11-30] MEDS ORDERED: CEFEPIME 1 GM in SODIUM CHLORIDE 0.9% 50 ML IVPB SCH (21:00)
[2019-11-30] MEDS: busPIRone HCl 10 MG TAB PO SCH (22:19)
[2019-11-30] MEDS: ATORVASTATIN 80 MG TAB PO SCH (22:19)
[2019-11-30] MEDS: INSULIN ASPART (NovoLOG) 100 UNIT/ML VIAL SQ SCH (22:20)
--- NOTE | 2019-11-30 22:29 | CONS ---
CONSULTATION REASON FOR CONSULT: End-stage renal disease. HISTORY OF PRESENT ILLNESS: Patient is a 59-year-old male with end-stage renal disease, on hemodialysis on a Saturday, Saturday, Saturday schedule at the [facility] via right arm AV fistula. The patient was admitted to the hospital with complaints of severe pain in his right leg which had been going on for 3 to 4 days prior to admission. Patient denied any back pain. He denied any significant ulcers or sores. He had a thoracic lumbar spine CT which showed multiple degenerative changes. No acute findings were noted. Patient will be scheduled for dialysis today. He denies any fever, chills or significant shortness of breath. PAST MEDICAL HISTORY: End-stage renal disease, anemia of chronic disease, CKD mineral bone disorder, hypertension, cardiomyopathy, hypothyroidism, COPD, gastroesophageal reflux disease. PAST SURGICAL HISTORY: AV fistula, PermCath placement, submandibular abscess, colonoscopy, left below- amputation due to injury during childhood. SOCIAL HISTORY: Positive for smoking. No history of drug abuse. MEDICATIONS: Medications at home include Zyloprim, aspirin, Celexa, Synthroid, magnesium, Lipitor, Coreg, Auryxia, Lasix, hydralazine, Pepcid, Norvasc, BuSpar. ALLERGIES: ALLERGIES include PENICILLIN. REVIEW OF SYSTEMS: As per HPI. Other systems negative. PHYSICAL EXAMINATION: Patient is comfortable, awake, alert and oriented x3, not in any acute distress. Blood pressure is 104/72, heart rate 78 per minute. Patient is afebrile. EXAMINATION OF THE HEART: S1 and S2. EXAMINATION OF LUNGS: Bilateral breath sounds are heard. ABDOMEN: Soft, non-tender. Examination of lower extremities shows no evidence of edema. CLEANING TECHNICIAN exam is grossly intact. Patient has left below-elbow amputation. LABS: Sodium 126, potassium 3.8, BUN 60, creatinine 10.5, albumin 3.5, hemoglobin 10.5 g/dL. ASSESSMENT: 1. End-stage renal disease, on hemodialysis on a Saturday, Saturday, Saturday schedule. We will arrange for hemodialysis today. 2. Hyponatremia associated with renal failure and volume overload. 3. Volume overload. We will plan for about 3 L of ultrafiltration today. 4. Anemia of chronic disease. 5. Chronic kidney disease mineral bone disorder. PLAN: Hemodialysis today. Repeat labs in a.m. Continue current home medications. Thank you for this consultation. We will continue to follow the patient with you during his hospitalization. MMODL / SRINIVASN: [id number] /
[2019-12-01] MEDS: methylPREDNISolone SOD SUCCI 40 MG/ML 1 ML VIAL IV SCH ×3 (00:30→17:27)
--- NOTE | 2019-12-01 00:39 | P.CONS ---
History of Present Illness - Reason for Consult Consult date: 11/30/19 sepsis Requesting physician: Leroy Vogt - Chief Complaint back pain and fever x 4 days - History of Present Illness Patient is a 59-year male with a past medical history significant for end-stage renal disease on hemodialysis through the right arm AV fistula patient presenting to [facility] ER with chief complaints of progressive back pain without any history of any trauma patient describes the pain to be more of a dull aching pain with no history of any trauma intensity 5-6 out of 10 and no radiation denies any bowel or bladder problem patient denies any headache no URI symptoms no chest pain no shortness of breath minimal cough no nausea vomiting no abdominal pain or any diarrhea with the symptom the patient has been evaluated by the ER physician on arrival to the ER patient did have a fever of 101 F patient did have a normal white count did have elevated d-dimer CRP and procalcitonin ventura PCR was negative patient did have a chest x-ray mild interstitial pneumonia in his chest is right lower lobe is increased compared to old exam patient also have a thoracolumbar spine CT which shows multilevel degenerative changes patient has been started on vancomycin and cefepime admitted hospital infected was consulted for further management of antibiotic therapy. Review of Systems Positive point has been mentioned in HPI rest of the systems are negative Past Medical History Past Medical History: Coronary Artery Disease (CAD), Heart Failure, COPD, GERD/Reflux, Hyperlipidemia, Hypertension, Renal Disease, Thyroid Disorder Additional Past Medical History / Comment(s): Chronic kidney failure with hemodialysis on Saturday, Saturday and Fridays with last time being 03/28/18, chronic anemia, cardiomyopathy, c"blood clot in my heart years ago", hypothyroid, post op I&D L submax abscess pt had respiratory failure and was vented. 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 Past Anesthesia/Blood Transfusion Reactions: No Reported Reaction Additional Past Anesthesia/Blood Transfusion Reaction / Comm: Pt has received blood without reaction. Past Psychological History: No Psychological Hx Reported Smoking Status: Current every day smoker Past Alcohol Use History: None Reported Past Drug Use History: None Reported - Past Family History Father Family Medical History: Diabetes Mellitus, Hypertension, Renal Disease Additional Family Medical History / Comment(s): Father was on hemodialysis Mother Family Medical History: Hypertension Medications and Allergies Home Medications Medication Instructions Recorded Confirmed Type Allopurinol [Zyloprim] 100 mg PO QAM 01/16/18 11/30/19 History Aspirin EC [Ecotrin Low Dose] 81 mg PO DAILY 01/16/18 11/30/19 History Citalopram Hydrobromide [CeleXA] 20 mg PO QAM 01/16/18 11/30/19 History Levothyroxine Sodium [Synthroid] 75 mcg PO DAILY 01/16/18 11/30/19 History Magnesium Oxide [Mag-Ox] 400 mg PO DAILY 01/16/18 11/30/19 History Atorvastatin [Lipitor] 80 mg PO HS #30 tab 01/29/18 11/30/19 Rx Carvedilol [Coreg*] 12.5 mg PO AC-BID #60 tab 01/30/18 11/30/19 Rx Auryxia 3 tab PO TID-W/MEALS 03/31/18 11/30/19 History Furosemide [Lasix] 80 mg PO BID 03/31/18 11/30/19 History hydrALAZINE HCL [Apresoline] 25 mg PO TID #90 tab 04/01/18 11/30/19 Rx Albuterol Inhaler [Ventolin Hfa 2 puff INHALATION RT-Q6H PRN 11/30/19 11/30/19 History Inhaler] Auryxia 1 - 2 tab PO BID PRN 11/30/19 11/30/19 History Famotidine [Pepcid] 20 mg PO QAM 11/30/19 11/30/19 History Vitamin D2 (Unknown Strength) 1 tab PO DAILY@12 11/30/19 11/30/19 History amLODIPine [Norvasc] 10 mg PO QAM 11/30/19 11/30/19 History busPIRone HCl [Buspar] 20 mg PO BID 11/30/19 11/30/19 History Allergies Allergy/AdvReac Type Severity Reaction Status Date / Time Penicillins Allergy Unknown Verified 11/30/19 11:33 Childhood Physical Exam Vitals: Vital Signs Temp Pulse Pulse Resp BP BP BP 11/30/19 20:27 88 20 20:18 84 11/30/19 20:00 98.0 F 63 16 100/55 0520 18:48 98.3 F 76 20 171/85 11/30/19 16:00 52 L 128/49 11/30/19 15:55 78 18 11/30/19 15:47 78 18 11/30/19 14:00 97.9 F 61 104/72 11/30/19 13:16 76 11/30/19 13:04 74 11/30/19 11:32 74 11/30/19 11:31 97.8 F 74 20 124/78 11/30/19 09:34 75 11/30/19 09:23 74 11/30/19 08:00 98.8 F 72 22 115/66 11/30/19 06:50 99.4 F 74 18 103/73 11/30/19 05:37 101.0 F H 71 22 99/58 11/30/19 04:55 76 11/30/19 04:46 72 11/30/19 04:45 72 11/30/19 04:35 70 11/30/19 04:24 99.7 F H 68 24 109/79 11/30/19 04:04 72 28 H 94/54 11/30/19 03:55 100.5 F H 70 28 H 105/68 20 03:40 100.7 F H 71 30 H 122/49 20 03:25 72 28 H 99/79 20 03:10 101.1 F H 71 30 H 79/53 0520 02:57 101.1 F H 72 30 H 120/95 Pulse Ox 11/30/19 20:27 11/30/19 20:18 11/30/19 20:00 94 L 11/30/19 18:48 11/30/19 16:00 11/30/19 15:55 11/30/19 15:47 11/30/19 14:00 96 11/30/19 13:16 11/30/19 13:04 11/30/19 11:32 11/30/19 11:31 90 L 11/30/19 09:34 11/30/19 09:23 11/30/19 08:00 90 L 11/30/19 06:50 93 L 11/30/19 05:37 91 L 11/30/19 04:55 11/30/19 04:46 11/30/19 04:45 11/30/19 04:35 11/30/19 04:24 89 L 11/30/19 04:04 83 L 11/30/19 03:55 90 L 11/30/19 03:40 89 L 11/30/19 03:25 88 L 11/30/19 03:10 88 L 11/30/19 02:57 83 L Intake and Output 11/30/19 11/30/19 12/01/19 14:59 22:59 06:59 Intake Total 100 Output Total 3200 Balance 100 -3200 Intake: Oral 100 Output: Hemodialysis 3200 GENERAL DESCRIPTION: Middle-aged male lying in bed, no distress. No tachypnea or accessory muscle of respiration use. HEENT: Shows Pallor , no scleral icterus. Oral mucous membrane is dry. NECK: Trachea central, no thyromegaly. LUNGS: Unlabored breathing. Decreased breath sound at the base. No wheeze or crackle. HEART: S1, S2, regular rate and rhythm. ABDOMEN: Soft, no tenderness , guarding or rigidity EXTREMITIES: No edema of feet. SKIN: No rash, no masses palpable. NEUROLOGICAL: The patient is awake, alert, oriented x3, mood and affect normal. Results CBC & Chem 7: 11/30/19 03:30 11/30/19 03:30 Labs: Abnormal Lab Results - Last 24 Hours (Table) 11/30/19 11/30/19 11/30/19 Range/Units 03:30 03:30 03:30 RBC 3.09 L (4.30-5.90) m/uL Hgb 10.5 L (13.0-17.5) gm/dL Hct 31.4 L (39.0-53.0) % MCV 101.5 H (80.0-100.0) fL Neutrophils # 9.3 H (1.3-7.7) k/uL Lymphocytes # 0.6 L (1.0-4.8) k/uL D-Dimer 2.40 H (<0.60) mg/L FEU Sodium 126 L (137-145) mmol/L Chloride 84 L (98-107) mmol/L BUN 60 H (9-20) mg/dL Creatinine 10.50 H* (0.66-1.25) mg/dL Glucose 107 H (74-99) mg/dL POC Glucose (mg/dL) (75-99) mg/dL Ferritin 2237.0 H (22.0-322.0) ng/mL C-Reactive Protein 418.4 H (<10.0) mg/L Procalcitonin (0.02-0.09) ng/mL 11/30/19 11/30/19 Range/Units 03:30 20:54 RBC (4.30-5.90) m/uL Hgb (13.0-17.5) gm/dL Hct (39.0-53.0) % MCV (80.0-100.0) fL Neutrophils # (1.3-7.7) k/uL Lymphocytes # (1.0-4.8) k/uL D-Dimer (<0.60) mg/L FEU Sodium (137-145) mmol/L Chloride (98-107) mmol/L BUN (9-20) mg/dL Creatinine (0.66-1.25) mg/dL Glucose (74-99) mg/dL POC Glucose (mg/dL) 110 H (75-99) mg/dL Ferritin (22.0-322.0) ng/mL C-Reactive Protein (<10.0) mg/L Procalcitonin 3.90 H (0.02-0.09) ng/mL Microbiology - Last 24 Hours (Table) 11/30/19 03:30 Blood Culture Gram Stain - Preliminary Blood Blood Culture - Preliminary Staphylococcus aureus 11/30/19 03:30 Blood Culture - Final Blood Assessment and Plan Assessment: patient presented to hospital her with a fever back pain is his main symptom with evidence of multilevel degenerative changes on the CT now with evidence of gram-positive bacteremia high clinical suspicious for possible discitis patient clinically will have significant respiratory symptom to be suspicious for pneumonia coronary diet excluded and currently no other focus of infection (1) Gram-positive bacteremia Current Visit: Yes Status: Acute Code(s): R78.81 - BACTEREMIA SNOMED Code(s): 413221800167 (2) Sepsis Current Visit: Yes Status: Acute Code(s): A41.9 - SEPSIS, UNSPECIFIED ORGANISM SNOMED Code(s): 01915145 Plan: 1-blood cultures will be repeated document clearance of bacteremia 2-vancomycin pharmacy to dose her with a target trough of 15 while watching her kidney function and Vanco trough closely. 3-MRI of the thoracic spine with contrast We will follow on clinical condition and cultures to further adjust medication if needed Thank you for this consultation we will follow the patient along with you Time with Patient: Greater than 30
[2019-12-01] MEDS ORDERED: LEVOFLOXACIN 750MG-D5W PMX 750 MG in DEXTROSE/WATER 1 150ML.BAG IVPB SCH (06:00)
[2019-12-01 06:07] LABS: Glucose,Whole Blood 164 mg/dL (75-99)
[2019-12-01] MEDS: HYDROcodone/APAP 5-325MG 1 EACH TAB PO PRN ×2 (06:33→15:30)
[2019-12-01] MEDS: INSULIN ASPART (NovoLOG) 100 UNIT/ML VIAL SQ SCH ×4 (06:34→21:39)
[2019-12-01] MEDS: LEVOTHYROXINE 75 MCG TAB PO SCH (06:34)
[2019-12-01] MEDS: CARVEDILOL 12.5 MG TAB PO SCH ×2 (06:34→17:28)
[2019-12-01 06:49] LABS: Calcium 9.6 mg/dL (8.4-10.2); Potassium 3.6 mmol/L (3.5-5.1)
[2019-12-01] MEDS: IPRATROPIUM-ALBUTEROL 3 ML NEB INHALATION SCH ×4 (07:51→19:39)
[2019-12-01 07:52] LABS: Basophils % (A) 0 %; Eosinophils % (A) 0 %; HCT 32.8 % (39.0-53.0); HGB 10.5 gm/dL (13.0-17.5); Lymphocytes # (A) 0.3 k/uL (1.0-4.8); Lymphocytes % (A) 3 %; MCH 32.9 pg (25.0-35.0); MCHC 32.1 g/dL (31.0-37.0); MCV 102.2 fL (80.0-100.0); Macrocytosis Slight; Mean Platelet Volume 8.1; Monocytes # (A) 0.4 k/uL (0-1.0); Monocytes % (A) 3 %; Neutrophils # (A) 9.8 k/uL (1.3-7.7); Neutrophils % (A) 94 %; Platelet Count 228 k/uL (150-450); RBC 3.21 m/uL (4.30-5.90); RDW 13.4 % (11.5-15.5); WBC 10.5 k/uL (3.8-10.6)
[2019-12-01] MEDS: AURYXIA PO SCH ×3 (08:46→17:28)
[2019-12-01] MEDS: MAGNESIUM OXIDE 400 MG TAB PO SCH (08:48)
[2019-12-01] MEDS: busPIRone HCl 10 MG TAB PO SCH ×2 (08:48→21:38)
[2019-12-01] MEDS: FAMOTIDINE 20 MG TAB PO SCH (08:48)
[2019-12-01] MEDS: CITALOPRAM HYDROBROMIDE 20 MG TAB PO SCH (08:48)
[2019-12-01] MEDS: ASPIRIN 81 MG PO SCH (08:48)
[2019-12-01] MEDS: KETOROLAC 30 MG/ML 1 ML VIAL IVP SCH ×2 (08:48→17:27)
[2019-12-01] MEDS: ENOXAPARIN 30 MG/0.3 ML SYRINGE SQ SCH (08:48)
[2019-12-01] MEDS: ALLOPURINOL 100 MG TAB PO SCH (08:48)
[2019-12-01] MEDS: NICOTINE 21MG/24HR PATCH TRANSDERM SCH (08:49)
[2019-12-01] MEDS ORDERED: VANCOMYCIN 1,500 MG in SODIUM CHLORIDE 0.9% 250 ML IVPB ONE (09:00)
--- NOTE | 2019-12-01 10:48 | P.PN ---
Subjective Progress Note Date: 12/01/19 Principal diagnosis: Right lumbar Radiculopathy Objective - Vital Signs Vital signs: Vital Signs Temp 97.6 F 12/01/19 04:00 Pulse 82 12/01/19 08:03 Resp 20 12/01/19 04:00 BP 138/66 12/01/19 04:00 Pulse Ox 92 L 12/01/19 04:00 Intake & Output 11/30/19 12/01/19 12/01/19 18:59 06:59 18:59 Intake Total 100 236 Output Total 3200 Balance -3100 236 Weight 79 kg Intake: Oral 100 236 Output: Hemodialysis 3200 - Exam GEN: NAD Inspection of the back is benign. Non tender. No stepoff or wounds. Right lower extremity Inspection shows no deformity or wounds. Negative straight leg raising. Tight hamstring. There is minimal weakness at the right EHL but otherwise motor is full 5/5 at L2-S1. L2-S1 dermatomes intact. No pathologic reflexes. Calf is soft and nontender. 2+ dorsalis pedis pulse and less than 2 second cap refill is present. - Constitutional General appearance: Present: no acute distress - Labs CBC & Chem 7: 12/01/19 05:43 12/01/19 05:43 Labs: Abnormal Lab Results - Last 24 Hours (Table) 11/30/19 11/30/19 11/30/19 Range/Units 03:30 03:30 20:54 RBC (4.30-5.90) m/uL Hgb (13.0-17.5) gm/dL Hct (39.0-53.0) % MCV (80.0-100.0) fL Neutrophils # (1.3-7.7) k/uL Lymphocytes # (1.0-4.8) k/uL Sodium (137-145) mmol/L Chloride (98-107) mmol/L BUN (9-20) mg/dL Creatinine (0.66-1.25) mg/dL Glucose (74-99) mg/dL POC Glucose (mg/dL) 110 H (75-99) mg/dL Ferritin 2237.0 H (22.0-322.0) ng/mL Procalcitonin 3.90 H (0.02-0.09) ng/mL 12/01/19 12/01/19 12/01/19 Range/Units 05:43 05:43 06:06 RBC 3.21 L (4.30-5.90) m/uL Hgb 10.5 L (13.0-17.5) gm/dL Hct 32.8 L (39.0-53.0) % MCV 102.2 H (80.0-100.0) fL Neutrophils # 9.8 H (1.3-7.7) k/uL Lymphocytes # 0.3 L (1.0-4.8) k/uL Sodium 131 L (137-145) mmol/L Chloride 87 L (98-107) mmol/L BUN 42 H (9-20) mg/dL Creatinine 7.05 H* (0.66-1.25) mg/dL Glucose 140 H (74-99) mg/dL POC Glucose (mg/dL) 164 H (75-99) mg/dL Ferritin (22.0-322.0) ng/mL Procalcitonin (0.02-0.09) ng/mL Microbiology - Last 24 Hours (Table) 11/30/19 03:30 Blood Culture Gram Stain - Preliminary Blood Blood Culture - Preliminary Staphylococcus aureus 11/30/19 03:30 Blood Culture - Final Blood - Imaging and Cardiology CT shows multilevel DDD and facet arthrosis where there is possible impingement at the right L5-S1 foramen. No significant canal stenosis Assessment and Plan (1) Lumbar radicular pain Narrative/Plan: Patient has improved with medications including corticosteroids, toradol and norco. He has no significant neurological defecit. Recommend continued symptomatic treatment and physical therapy. Current Visit: Yes Status: Acute Priority: Medium Code(s): M54.16 - RADICULOPATHY, LUMBAR REGION SNOMED Code(s): 685644182 Time with Patient: Less than 30
--- NOTE | 2019-12-01 10:53 | CDI ---
Documentation Clarification Form Date: 12/01/2019 10:26:19 AM From: Elsa Jeronimo RN CCDS Admit Date: 11/30/2019 04:36:00 AM Patient Name: Jordan Boogie Visit Number: [id number] Discharge Date: ATTENTION: The Clinical Documentation Specialists (CDI) and [facility] Coding Staff appreciate your assistance in clarifying documentation. Please respond to the clarification below the line at the bottom and electronically sign. The CDI & [facility] Coding staff will review the response and follow-up if needed. Please note: Queries are made part of the Legal Health Record. If you have any questions, please contact the author of this message via ITS. Dr. Leroy Vogt Congestive Heart Failure EF not know is documented in the H&P 11/29 History/Risk Factors: 59-year-old male presents to the ED fever, chronic chough and baseline shortness of breath. Medical history: Active smoker, ESRD, HTN, HLD, COPD and Heart Failure Clinical Indicators: 11/29 VS/Pulse OX: 120/95 72 101.1 30 83% ra 11/29 BNP: [id number] 05/25/18 Echocardiogram Results: Mild concentric left ventricular hypertrophy. Overall left ventricular systolic function is normal with, an EF between 55-60% 11/29 Chest X Ray: Mild interstitial pneumonia and atelectasis right lower lobe is increased compared to old exam. Treatment: 11/29 Coreg po BID, In your professional opinion, can you please clarify the acuity and type of CHF if known? Chronic diastolic heart failure Unable to Determine Other, please specify (Last Revision: October 2017) Possible chronic diastolic heart failure with last ejection fraction 55-60% from 2018 MTDD
[2019-12-01 11:44] LABS: Glucose,Whole Blood 137 mg/dL (75-99)
--- NOTE | 2019-12-01 15:11 | P.PN ---
Subjective Progress Note Date: 12/01/19 Principal diagnosis: Right lower lobe developing pneumonia Acute COPD exacerbation Tracheobronchitis Gram-positive bacteremia cluster source not clear Severe degree of degenerative joint disease of spine, rule out thoracic spine discitis Right lower extremity pain Chronic renal failure stage V on hemodialysis 12/01/2019, patient seen eval reexamined during the rounds labs reviewed medications reviewed shortness of breath and cough has been improved significantly patient has some pain in the spine with radiation to right leg, patient has been evaluated by infectious disease services and MRI of the thoracic spine has been ordered, to rule out discitis, white cell count is normal, patient is being followed by renal services for hemodialysis, This is a 59-year-old male with prior medical history of chronic renal failure on hemodialysis patient came into the hospital with for 5 day history of progressive back pain and neck pain, he was noted to be tachypneic as well as febrile up to 101 chest x-ray shows developing right lower lobe infiltrate the blood cultures are positive for gram-positive cocci in clusters patient likely is having sepsis due to gram-positive cocci source however is not clear with a component of COPD exacerbation as well and possibly right-sided pneumonia, patient's has significant history of congestive heart failure COPD dyslipidemia hypertension hypertensive cardiovascular disease and 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, CT of lumbar spine shows DJD and Doppler study results are pending, besides having leg pain no other numbness or weakness are present she does have ongoing shortness of breath intermittent cough just mostly nonproductive Objective - Vital Signs Vital signs: Vital Signs Temp 98.8 F 12/01/19 08:00 Pulse 56 L 12/01/19 12:00 Resp 20 12/01/19 04:00 BP 107/53 12/01/19 12:00 Pulse Ox 97 12/01/19 12:00 Intake & Output 11/30/19 12/01/19 12/01/19 18:59 06:59 18:59 Intake Total 100 486 Output Total 3200 Balance -3100 486 Weight 79 kg Intake: Intake, IV Titration 250 Amount Vancomycin 1,500 mg In 250 Sodium Chloride 0.9% 250 ml @ 125 mls/hr IVPB ONCE ONE Rx#:[id number] Oral 100 236 Output: Hemodialysis 3200 - Exam - Constitutional General appearance: average body habitus, disheveled - EENT Eyes: PERRLA Ears: bilateral: normal - Neck Neck: normal ROM Carotids: bilateral: upstroke normal Thyroid: bilateral: normal size - Respiratory Respiratory: bilateral: diminished - Cardiovascular Rhythm: regular Heart sounds: normal: S1, S2 - Gastrointestinal General gastrointestinal: normal bowel sounds, soft - Integumentary Integumentary: decreased turgor - Neurologic Neurologic: CNII-XII intact - Musculoskeletal Musculoskeletal: generalized weakness, strength equal bilaterally - Psychiatric Psychiatric: A&O x's 3, appropriate affect - Labs CBC & Chem 7: 12/01/19 05:43 12/01/19 05:43 Labs: Abnormal Lab Results - Last 24 Hours (Table) 11/30/19 12/01/19 12/01/19 Range/Units 20:54 05:43 05:43 RBC 3.21 L (4.30-5.90) m/uL Hgb 10.5 L (13.0-17.5) gm/dL Hct 32.8 L (39.0-53.0) % MCV 102.2 H (80.0-100.0) fL Neutrophils # 9.8 H (1.3-7.7) k/uL Lymphocytes # 0.3 L (1.0-4.8) k/uL Sodium 131 L (137-145) mmol/L Chloride 87 L (98-107) mmol/L BUN 42 H (9-20) mg/dL Creatinine 7.05 H* (0.66-1.25) mg/dL Glucose 140 H (74-99) mg/dL POC Glucose (mg/dL) 110 H (75-99) mg/dL 12/01/19 12/01/19 Range/Units 06:06 11:43 RBC (4.30-5.90) m/uL Hgb (13.0-17.5) gm/dL Hct (39.0-53.0) % MCV (80.0-100.0) fL Neutrophils # (1.3-7.7) k/uL Lymphocytes # (1.0-4.8) k/uL Sodium (137-145) mmol/L Chloride (98-107) mmol/L BUN (9-20) mg/dL Creatinine (0.66-1.25) mg/dL Glucose (74-99) mg/dL POC Glucose (mg/dL) 164 H 137 H (75-99) mg/dL Microbiology - Last 24 Hours (Table) 11/30/19 03:30 Blood Culture Gram Stain - Preliminary Blood Blood Culture - Preliminary Staphylococcus aureus 11/30/19 03:30 Blood Culture - Final Blood Assessment and Plan Assessment: Right lower lobe developing pneumonia Acute COPD exacerbation Tracheobronchitis Gram-positive bacteremia cluster source not clear Severe degree of degenerative joint disease of spine Right lower extremity pain Chronic renal failure stage V on hemodialysis Plan: Agree with broad-spectrum antibiotic with cefepime time along with vancomycin MRI of the thoracic spine to rule out discitis Repeat blood cultures Appreciated infectious disease evaluation Continue breathing treatments, steroids Hemodialysis as planned Deep breathing exercise incentive spirometry Further plan of care as per clinical response of the patient Time with Patient: Greater than 30
--- NOTE | 2019-12-01 15:25 | PN ---
PROGRESS NOTE Patient is seen for followup for end-stage renal disease. He is maintained on a Saturday, Saturday, Saturday schedule. Patient was dialyzed yesterday. He tolerated his treatment well. He will be dialyzed again tomorrow. He was admitted with complaints of right leg pain, to undergo physical therapy. Patient had MRI of the lumbar spine done which is currently pending. CT spine did not show any acute findings. On examination today, blood pressure was 115/54, heart rate 82 per minute. Patient is afebrile. EXAMINATION OF THE HEART: S1 and S2. EXAMINATION OF LUNGS: Bilateral breath sounds are heard. ABDOMEN: Soft, non-tender. Examination of lower extremities shows no evidence of edema. Patient is able to move all 4 extremities. Labs show hemoglobin 10.5, potassium 3.6. ASSESSMENT: 1. End-stage renal disease, on hemodialysis on a Saturday, Saturday, Saturday schedule. We will plan for hemodialysis tomorrow. 2. Right leg pain, status post CT of the spine with no significant acute changes noted. MRI of the spine has been ordered. It is currently pending. 3. Chronic kidney disease mineral bone disorder. 4. Hypertension, currently controlled. 5. Dyslipidemia. PLAN: Hemodialysis in a.m. Avoid phosphate enemas. MMODL / IJN: [id number] /
--- NOTE | 2019-12-01 15:48 | MR ---
EXAMINATION TYPE: MR lumbar spine wo/w con DATE OF EXAM: 12/01/2019 COMPARISON: None HISTORY: Lower Back pain going into right leg. CONTRAST: 7.5 mL intravenous Gadavist. TECHNIQUE: Multiplanar, multisequence images of the lumbar spine were acquired. FINDINGS: Cord terminates at the L1 level. L5-S1: Endplate changes are at L5-S1. There is narrowing of the disc height. No spinal canal stenosis is present. Disc bulging is contributing to foraminal narrowing. There may be some nerve root contac t on the far left. Correlate with radicular symptoms. L4-L5: Broad-based disc bulge is present. This is greater within the central region with moderate ant erior thecal sac compression. Facet hypertrophy and ligamentum flavum laxity are present. No spinal c anal stenosis present. Mild right and moderate left foraminal narrowing is present from the disc bulg ing L3-L4: No significant disc bulge or disc herniation. No spinal canal stenosis. No foraminal stenosi s. Disc height is preserved. There is disc desiccation L2-L3: No significant disc bulge or disc herniation. No spinal canal stenosis. No foraminal stenosi s. L1-L2: No significant disc bulge or disc herniation. No spinal canal stenosis. No foraminal stenosi s. Some inferior L1 endplate changes are present. T12-L1: No significant disc bulge or disc herniation. No spinal canal stenosis. No foraminal stenos is. No abnormal enhancement. IMPRESSION: 1. Disc bulging loss of disc height and endplate changes L5-S1. The disc bulging extends into the for amen bilaterally with moderate right and severe left foraminal stenosis. Correlate with radicular sym ptoms on the left S1. 2. Milder degenerative changes are present L4-5 with mild right and moderate left foraminal narrowing due to disc bulging.
[2019-12-01 16:32] LABS: Glucose,Whole Blood 208 mg/dL (75-99)
[2019-12-01] MEDS: CEFEPIME 0.5 GM in SODIUM CHLORIDE 0.9% 50 ML IVPB SCH (17:27)
--- NOTE | 2019-12-01 19:52 | P.PN ---
Progress Note - Text Progress Note Date: 12/01/19 Chief Complaint: Fever History of presenting complaint: This is a 59-year-old patient of Dr. Srini Hastings. Chronic stable medical conditions include end-stage kidney disease on hemodialysis Saturday and Saturday with the right arm fistula, anxiety, COPD, minimal bone disease, congestive heart failure EF 50%, coronary artery disease and left below elbow amputation. Patient's presents with symptoms of increasing pain in the right lower extremity starting off in the right lower back going on for over 6-7 days. Having a difficult to walk. Patient is also noted to have fevers has a chronic cough is an active smoker. Some baseline shortness of breath he states. Admitted for the same. Patient stated that about a week ago he and his brother bought a bowstring and to use the area to sit up and down quite a bit. And aspirin the pain started. Admitted with-pneumonia, severe lower back right SI joint pain.-Described as being ruled out, COPD exacerbation. Blood cultures positive for Staphylococcus aureus Today-breathing a bit better. Pain is also better. MRI of the spine was ordered did tolerate some diet. Less short of breath. Review of systems: Was done for constitutional, cardiovascular, GI, pulmonary. relevant finding as above Active Medications Acetaminophen (Tylenol Tab) 650 mg PO Q6HR PRN PRN Reason: Mild Pain or Fever > 100.5 Hydrocodone Bitart/Acetaminophen ([place] 5-325) 1 each PO Q8H PRN PRN Reason: Pain Last Admin: 12/01/19 15:30 Dose: 1 each Documented by: Al Hydroxide/Mg Hydroxide (Maalox) 15 ml PO Q6HR PRN PRN Reason: Indigestion Albuterol Sulfate (Ventolin Nebulized) 2.5 mg INHALATION RT-Q4H PRN PRN Reason: Shortness Of Breath Or Wheezing Albuterol/Ipratropium (Duoneb 0.5 Mg-3 Mg/3 Ml Soln) 3 ml INHALATION RT-QID [facility] Last Admin: 12/01/19 19:39 Dose: 3 ml Documented by: Allopurinol (Zyloprim) 100 mg PO QAM [facility] Last Admin: 12/01/19 08:48 Dose: 100 mg Documented by: Alprazolam (Xanax) 0.25 mg PO Q6HR PRN PRN Reason: Anxiety Aspirin (Aspirin) 81 mg PO DAILY [facility] Last Admin: 12/01/19 08:48 Dose: 81 mg Documented by: Atorvastatin Calcium (Lipitor) 80 mg PO HS [facility] Last Admin: 11/30/19 22:19 Dose: 80 mg Documented by: Buspirone HCl (Buspar) 20 mg PO BID [facility] Last Admin: 12/01/19 08:48 Dose: 20 mg Documented by: Calcium Carbonate/Glycine (Tums) 1,000 mg PO Q4HR PRN PRN Reason: Dyspepsia Carvedilol (Coreg) 12.5 mg PO AC-BID [facility] Last Admin: 12/01/19 17:28 Dose: 12.5 mg Documented by: Citalopram Hydrobromide (Celexa) 20 mg PO QAM [facility] Last Admin: 12/01/19 08:48 Dose: 20 mg Documented by: Enoxaparin Sodium (Lovenox) 30 mg SQ DAILY [facility] Last Admin: 12/01/19 08:48 Dose: 30 mg Documented by: Famotidine (Pepcid) 20 mg PO QAM [facility] Last Admin: 12/01/19 08:48 Dose: 20 mg Documented by: Cefepime HCl 0.5 gm/ Sodium (Chloride) 50 mls @ 100 mls/hr IVPB Q24H [facility] Last Admin: 12/01/19 17:27 Dose: 100 mls/hr Documented by: Insulin Aspart (Novolog) 0 unit SQ [facility]; Protocol Last Admin: 12/01/19 17:29 Dose: 3 unit Documented by: Ketorolac Tromethamine (Toradol) 30 mg IVP Q8HR [facility] Stop: 12/02/19 08:01 Last Admin: 12/01/19 17:27 Dose: 30 mg Documented by: Lactulose (Cephulac) 20 gm PO DAILY PRN PRN Reason: Constipation Levothyroxine Sodium (Synthroid) 75 mcg PO 0630 [facility] Last Admin: 12/01/19 06:34 Dose: 75 mcg Documented by: Magnesium Oxide (Mag-Ox) 400 mg PO DAILY [facility] Last Admin: 12/01/19 08:48 Dose: 400 mg Documented by: Melatonin (Melatonin) 3 mg PO HS PRN PRN Reason: Insomnia Methylprednisolone Sodium Succinate (Solu-Medrol) 40 mg IV Q8HR [facility] Last Admin: 12/01/19 17:27 Dose: 40 mg Documented by: Miscellaneous Information (Pneumonia Protocol Utilized) 1 each PO ONCE PRN PRN Reason: Per Protocol Miscellaneous Information (Pharmacy To Dose Iv Vancomycin) 1 each MISCELLANE DIRECTED PRN; Protocol PRN Reason: Per Protocol Naloxone HCl (Narcan) 0.2 mg IV Q2M PRN PRN Reason: Opioid Reversal Nicotine (Habitrol 21mg/24hr Patch) 1 patch TRANSDERM DAILY [facility] Last Admin: 12/01/19 08:49 Dose: 1 patch Documented by: Patient's Own ( (Auryxia 3 Tab)) 3 tab PO TID-W/MEALS [facility] Last Admin: 12/01/19 17:28 Dose: Not Given Documented by: Ondansetron HCl (Zofran) 4 mg IVP Q8HR PRN PRN Reason: Nausea And Vomiting Physical examination: VITAL SIGNS: 98.8, 56, 16, 107/53, 97% on 4 L GENERAL: Propped up in bed, appears a bit better today. EYES: Pupils equal. Conjunctiva normal. HEENT: External appearance of nose and ears normal, oral cavity grossly normal. NECK: JVD not raised; masses not palpable. HEART: First and second heart sounds are normal; no edema. LUNGS: Respiratory rate increased, decreased breath sounds some wheezing. ABDOMEN: Soft, nontender, liver spleen not palpable, no masses palpable. PSYCH: Alert and oriented x3; mood and affect normal. MUSCULOSKELETAL: No obvious localized tenderness in the lower lumbar spine or the SI joint. Able to raise both the lower extremities to 60 INVESTIGATIONS, reviewed in the clinical context: White count 10.5 hemoglobin 10.5 platelets 228 potassium 3.6 bun 42 creatinine 7.05 Lumbar spine MRI shows disc bulging at the L5-S1 side. And some DJD changes COVID-19 PCR-not detected, blood cultures positive for Staphylococcus aureus Previous testing White count 10.6 hemoglobin 10.5 platelets 235 sodium 126 potassium 3.8 bun 60 creatinine 10.5 Ferritin 2237, CRP 418, pro calcitonin 3.9 Chest x-ray film personally reviewed by me-shows infiltrates EKG tracing personally reviewed by me-sinus rhythm and nonspecific T-wave changes Thoracolumbar lumbar CT spine-multilevel DJD changes no acute findings Thoracolumbar spine x-ray DJD changes Assessment: -This is a patient now presents with fevers, cough shortness of breath which interestingly is not his predominant complaint.Respirations up to 30. Likely causes pneumonia with sepsis. -Blood cultures positive for Staphylococcus aureus -Acute COPD exacerbation in a current smoker -Chronic nicotine dependence patient cigarette smoker -Lower lumbar spine and the adjoining area of pain appears to be sciatica with pain down the right leg. Orthopedics consulted -Coronary artery disease -Congestive heart failure EF not known -GERD -Hyperlipidemia -Essential hypertension -End-stage kidney disease on hemodialysis Saturday and Saturday -Hypothyroid Plan: Patient is on IV cefepime and did receive vancomycin. Other medications to continue. Discussed with the patient. Patient scheduled for hemodialysis tomorrow.
[2019-12-01 20:24] LABS: Glucose,Whole Blood 136 mg/dL (75-99)
--- NOTE | 2019-12-01 20:45 | PN ---
PROGRESS NOTE DATE OF SERVICE: 12/01/2019 REASON FOR FOLLOWUP: Staph aureus bacteremia and a question of diskitis/pneumonia. INTERVAL HISTORY: The patient was seen on rounds this morning. The patient has been afebrile. The patient is feeling better, breathing comfortably. No significant chest pain. cough. No nausea. No vomiting. No abdominal pain. Still having pain in the back but has improved with pain medication. PHYSICAL EXAMINATION: Blood pressure 140/69 with a pulse of 58, temperature 98.8. He is 97% on 4 L nasal cannula. General description is a middle-aged male lying in bed in no distress. RESPIRATORY SYSTEM: Unlabored breathing. Clear to auscultation anteriorly. HEART: S1, S2. Regular rate and rhythm. ABDOMEN: Soft. No tenderness. LABS/IMAGING: Hemoglobin is 10.5, white count 10.5, BUN of 42, creatinine 7.05. Blood culture with Staph aureus. Blood culture repeat is so far pending. MRI of the lumbosacral spine did not show any evidence of diskitis. DIAGNOSTIC IMPRESSION AND PLAN: Patient with Staphylococcus aureus bacteremia in this patient admitted to hospital with sepsis. Patient is covered with vancomycin; to continue while waiting for the final ID and sensitivity. Will also have the follow-up blood cultures to make sure those are negative. Diskitis has been ruled out with a negative MRI. With the pulmonary symptoms and some infiltrate, pneumonia is a possibility; however, we are going to monitor his clinical course closely and adjust antibiotic further if needed. MMODL / IJN: [id number] /
[2019-12-01] MEDS: ATORVASTATIN 80 MG TAB PO SCH (21:39)
[2019-12-02] MEDS: methylPREDNISolone SOD SUCCI 40 MG/ML 1 ML VIAL IV SCH ×4 (00:22→22:45)
[2019-12-02] MEDS: KETOROLAC 30 MG/ML 1 ML VIAL IVP SCH ×2 (00:22→12:33)
[2019-12-02] MEDS ORDERED: LEVOFLOXACIN 500MG-D5W PMX 500 MG in DEXTROSE/WATER 1 100ML.BAG IVPB SCH (06:00)
[2019-12-02 06:17] LABS: Glucose,Whole Blood 122 mg/dL (75-99)
[2019-12-02 06:25] LABS: Potassium 3.6 mmol/L (3.5-5.1)
[2019-12-02] MEDS: LEVOTHYROXINE 75 MCG TAB PO SCH (06:38)
[2019-12-02] MEDS: CARVEDILOL 12.5 MG TAB PO SCH ×2 (06:38→17:17)
[2019-12-02] MEDS: HYDROcodone/APAP 5-325MG 1 EACH TAB PO PRN ×2 (06:38→14:24)
[2019-12-02 06:52] LABS: Calcium 9.8 mg/dL (8.4-10.2)
[2019-12-02] MEDS: IPRATROPIUM-ALBUTEROL 3 ML NEB INHALATION SCH ×4 (07:34→20:11)
[2019-12-02] MEDS: INSULIN ASPART (NovoLOG) 100 UNIT/ML VIAL SQ SCH ×4 (08:49→20:49)
[2019-12-02 09:36] LABS: Vancomycin,Random 28.2 ug/mL
[2019-12-02] MEDS: FAMOTIDINE 20 MG TAB PO SCH (09:43)
[2019-12-02 09:46] LABS: C Reactive Protein 265.1 mg/L (<10.0)
[2019-12-02 11:14] LABS: Glucose,Whole Blood 120 mg/dL (75-99)
[2019-12-02] MEDS: AURYXIA PO SCH ×3 (11:38→16:16)
[2019-12-02] MEDS: MAGNESIUM OXIDE 400 MG TAB PO SCH (12:34)
[2019-12-02] MEDS: NICOTINE 21MG/24HR PATCH TRANSDERM SCH (12:34)
[2019-12-02] MEDS: busPIRone HCl 10 MG TAB PO SCH ×2 (12:34→20:51)
[2019-12-02] MEDS: ENOXAPARIN 30 MG/0.3 ML SYRINGE SQ SCH (12:35)
[2019-12-02] MEDS: CITALOPRAM HYDROBROMIDE 20 MG TAB PO SCH (12:35)
[2019-12-02] MEDS: ASPIRIN 81 MG PO SCH (12:35)
[2019-12-02] MEDS: ALLOPURINOL 100 MG TAB PO SCH (12:37)
[2019-12-02] MEDS: PANTOPRAZOLE 40 MG TABLET PO SCH ×2 (13:03→17:17)
[2019-12-02] MEDS: CEFEPIME 0.5 GM in SODIUM CHLORIDE 0.9% 50 ML IVPB SCH (14:23)
--- NOTE | 2019-12-02 15:01 | P.PN ---
Subjective Progress Note Date: 12/02/19 Principal diagnosis: Persistent bacteremia due to MRSA with positive second blood culture as well Right lower lobe developing pneumonia Acute COPD exacerbation Tracheobronchitis Gram-positive bacteremia cluster source not clear Severe degree of degenerative joint disease of spine, Right lower extremity pain Chronic renal failure stage V on hemodialysis 12/01/2019, patient seen eval reexamined during the rounds labs reviewed medications reviewed shortness of breath and cough has been improved significantly patient has some pain in the spine with radiation to right leg, patient has been evaluated by infectious disease services and MRI of the thoracic spine has been ordered, to rule out discitis, white cell count is normal, patient is being followed by renal services for hemodialysis, This is a 59-year-old male with prior medical history of chronic renal failure on hemodialysis patient came into the hospital with for 5 day history of progressive back pain and neck pain, he was noted to be tachypneic as well as febrile up to 101 chest x-ray shows developing right lower lobe infiltrate the blood cultures are positive for gram-positive cocci in clusters patient likely is having sepsis due to gram-positive cocci source however is not clear with a component of COPD exacerbation as well and possibly right-sided pneumonia, patient's has significant history of congestive heart failure COPD dyslipidemia hypertension hypertensive cardiovascular disease and 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, CT of lumbar spine shows DJD and Doppler study results are pending, besides having leg pain no other numbness or weakness are present she does have ongoing shortness of breath intermittent cough just mostly nonproductive Objective - Vital Signs Vital signs: Vital Signs Temp 98.0 F 12/02/19 13:33 Pulse 64 12/02/19 13:33 Resp 18 12/02/19 13:33 BP 116/80 12/02/19 13:33 Pulse Ox 93 L 12/02/19 04:00 Intake & Output 12/01/19 12/02/19 12/02/19 18:59 06:59 18:59 Intake Total 486 360 Output Total 800 Balance 486 -440 Weight 82.5 kg Intake: Intake, IV Titration 250 Amount Vancomycin 1,500 mg In 250 Sodium Chloride 0.9% 250 ml @ 125 mls/hr IVPB ONCE ONE Rx#:[id number] Oral 236 360 Output: Hemodialysis 800 Other: # Voids 1 1 - Exam - Constitutional General appearance: average body habitus, disheveled - EENT Eyes: PERRLA Ears: bilateral: normal - Neck Neck: normal ROM Carotids: bilateral: upstroke normal Thyroid: bilateral: normal size - Respiratory Respiratory: bilateral: diminished - Cardiovascular Rhythm: regular Heart sounds: normal: S1, S2 - Gastrointestinal General gastrointestinal: normal bowel sounds, soft - Integumentary Integumentary: decreased turgor - Neurologic Neurologic: CNII-XII intact - Musculoskeletal Musculoskeletal: generalized weakness, strength equal bilaterally - Psychiatric Psychiatric: A&O x's 3, appropriate affect - Labs CBC & Chem 7: 12/01/19 05:43 12/02/19 05:35 Labs: Abnormal Lab Results - Last 24 Hours (Table) 12/01/19 12/01/19 12/02/19 Range/Units 16:30 20:23 05:35 ESR (0-15) mm/hr Sodium 132 L (137-145) mmol/L Chloride 90 L (98-107) mmol/L BUN 81 H (9-20) mg/dL Creatinine 8.65 H* (0.66-1.25) mg/dL Glucose 119 H (74-99) mg/dL POC Glucose (mg/dL) 208 H 136 H (75-99) mg/dL C-Reactive Protein 265.1 H (<10.0) mg/L 12/02/19 12/02/19 12/02/19 Range/Units 05:35 06:15 11:13 ESR 25 H (0-15) mm/hr Sodium (137-145) mmol/L Chloride (98-107) mmol/L BUN (9-20) mg/dL Creatinine (0.66-1.25) mg/dL Glucose (74-99) mg/dL POC Glucose (mg/dL) 122 H 120 H (75-99) mg/dL C-Reactive Protein (<10.0) mg/L Microbiology - Last 24 Hours (Table) 11/30/19 03:30 Blood Culture Gram Stain - Final Blood Blood Culture - Final Methicillin resist S. aureus 12/01/19 05:43 Blood Culture Gram Stain - Preliminary Blood Blood Culture - Preliminary Staphylococcus aureus 12/01/19 05:43 Blood Culture - Final Blood Assessment and Plan Assessment: Right lower lobe developing pneumonia Acute COPD exacerbation Tracheobronchitis Gram-positive bacteremia cluster source not clear May be related to line or endocarditis further recommendation per ID service Severe degree of degenerative joint disease of spine Right lower extremity pain Chronic renal failure stage V on hemodialysis Plan: Agree with broad-spectrum antibiotic with cefepime time along with vancomycin Repeat blood cultures results reviewed Appreciated infectious disease evaluation Continue breathing treatments, steroids Hemodialysis as planned Deep breathing exercise incentive spirometry Further plan of care as per clinical response of the patient
--- NOTE | 2019-12-02 15:54 | PN ---
PROGRESS NOTE Patient is seen for followup for end-stage renal disease. He is currently seen on dialysis. He is tolerating his treatment well. Patient is complaining of significant heartburn for which he is receiving Maalox. He is maintained on Protonix which was started today. PHYSICAL EXAMINATION: Blood pressure is 99/69, heart rate 64 per minute, patient is afebrile. Examination of the heart S1, S2. Examination on the lungs, decreased breath sounds at bases. Abdomen is soft, nontender. Examination of the lower extremities shows no evidence of edema. Patient has left below-elbow amputation. LABS: Show sodium 132, potassium 3.6, BUN 81, serum creatinine 8.65. ASSESSMENT: 1. End-stage renal disease, maintained on hemodialysis on a Saturday, Saturday, Saturday schedule. 2. Severe right leg pain, status post MRI which shows degenerative changes, some disk bulging at L5 and S1 being followed by Orthopedic. 3. Gastroesophageal reflux disease. Start proton pump inhibitors. The patient has been started on Protonix already. PLAN: Repeat hemodialysis on 12/04/2019. MMODL / IJN: [id number] /
[2019-12-02 16:17] LABS: Glucose,Whole Blood 131 mg/dL (75-99)
--- NOTE | 2019-12-02 16:45 | PN ---
PROGRESS NOTE DATE OF SERVICE: 12/02/2019 REASON FOR FOLLOW UP: MRSA bacteremia. INTERVAL HISTORY: The patient is currently afebrile, patient is breathing comfortably. Denies having any chest pain or shortness of breath. Minimal cough. No sputum. No abdominal pain. Pain to the back area is currently controlled. No other symptoms. PHYSICAL EXAMINATION: Blood pressure 160/80, pulse 64, temperature of 98, he is 95% on room air. General description is a middle-aged male, lying in bed in no distress. RESPIRATORY SYSTEM: Unlabored breathing, clear to auscultation anteriorly. HEART: S1, S2. Regular rate and rhythm. ABDOMEN: Soft, no tenderness. EXTREMITIES: No edema of the feet. LABS: BUN of 81, creatinine is 8.65. Sedimentation rate of 25. CRP is 265. Blood culture from 11/30 is positive as well. DIAGNOSTIC IMPRESSION AND PLAN: Patient with MRSA bacteremia and this patient's main symptom was low back pain and some respiratory symptoms. Initial concern for possible diskitis. MRI was negative. Sputum could not be obtained. Blood culture repeat is positive likely indicating a deep infection. We will obtain a WBC scan to see that will help localize the site. For now continue with vancomycin, pharmacy to dose. Discontinue cefepime and continue supportive care. MMODL / IJN: [id number] /
[2019-12-02 20:17] LABS: Glucose,Whole Blood 127 mg/dL (75-99)
--- NOTE | 2019-12-02 20:17 | P.PN ---
Progress Note - Text Progress Note Date: 12/02/19 Chief Complaint: Fever History of presenting complaint: This is a 59-year-old patient of Dr. Srini Hastings. Chronic stable medical conditions include end-stage kidney disease on hemodialysis Saturday and Saturday with the right arm fistula, anxiety, COPD, minimal bone disease, congestive heart failure EF 50%, coronary artery disease and left below elbow amputation. Patient's presents with symptoms of increasing pain in the right lower extremity starting off in the right lower back going on for over 6-7 days. Having a difficult to walk. Patient is also noted to have fevers has a chronic cough is an active smoker. Some baseline shortness of breath he states. Admitted for the same. Patient stated that about a week ago he and his brother bought a bowstring and to use the area to sit up and down quite a bit. And aspirin the pain started. Admitted with-pneumonia, severe lower back right SI joint pain.-Described as being ruled out, COPD exacerbation. Blood cultures positive for Staphylococcus aureus. Started on cefepime. IV Solu-Medrol. Bronchodilators. IV vancomycin. Today-slight cough. Less short of breath. Some lower back pain. Tolerating diet.. Cefepime discontinued. Review of systems: Was done for constitutional, cardiovascular, GI, pulmonary. relevant finding as above Active Medications Acetaminophen (Tylenol Tab) 650 mg PO Q6HR PRN PRN Reason: Mild Pain or Fever > 100.5 Hydrocodone Bitart/Acetaminophen ([place] 5-325) 1 each PO Q8H PRN PRN Reason: Pain Last Admin: 12/02/19 14:24 Dose: 1 each Documented by: Al Hydroxide/Mg Hydroxide (Maalox) 15 ml PO Q6HR PRN PRN Reason: Indigestion Last Admin: 12/02/19 11:03 Dose: 15 ml Documented by: Albuterol Sulfate (Ventolin Nebulized) 2.5 mg INHALATION RT-Q4H PRN PRN Reason: Shortness Of Breath Or Wheezing Albuterol/Ipratropium (Duoneb 0.5 Mg-3 Mg/3 Ml Soln) 3 ml INHALATION RT-QID [facility] Last Admin: 12/02/19 15:38 Dose: 3 ml Documented by: Allopurinol (Zyloprim) 100 mg PO QAM [facility] Last Admin: 12/02/19 12:37 Dose: 100 mg Documented by: Alprazolam (Xanax) 0.25 mg PO Q6HR PRN PRN Reason: Anxiety Aspirin (Aspirin) 81 mg PO DAILY [facility] Last Admin: 12/02/19 12:35 Dose: 81 mg Documented by: Atorvastatin Calcium (Lipitor) 80 mg PO HS [facility] Last Admin: 12/01/19 21:39 Dose: 80 mg Documented by: Buspirone HCl (Buspar) 20 mg PO BID [facility] Last Admin: 12/02/19 12:34 Dose: 20 mg Documented by: Calcium Carbonate/Glycine (Tums) 1,000 mg PO Q4HR PRN PRN Reason: Dyspepsia Carvedilol (Coreg) 12.5 mg PO AC-BID [facility] Last Admin: 12/02/19 17:17 Dose: 12.5 mg Documented by: Citalopram Hydrobromide (Celexa) 20 mg PO QAM [facility] Last Admin: 12/02/19 12:35 Dose: 20 mg Documented by: Enoxaparin Sodium (Lovenox) 30 mg SQ DAILY [facility] Last Admin: 12/02/19 12:35 Dose: 30 mg Documented by: Insulin Aspart (Novolog) 0 unit SQ [facility]; Protocol Last Admin: 12/02/19 17:17 Dose: Not Given Documented by: Lactulose (Cephulac) 20 gm PO DAILY PRN PRN Reason: Constipation Levothyroxine Sodium (Synthroid) 75 mcg PO 0630 [facility] Last Admin: 12/02/19 06:38 Dose: 75 mcg Documented by: Magnesium Oxide (Mag-Ox) 400 mg PO DAILY [facility] Last Admin: 12/02/19 12:34 Dose: 400 mg Documented by: Melatonin (Melatonin) 3 mg PO HS PRN PRN Reason: Insomnia Methylprednisolone Sodium Succinate (Solu-Medrol) 40 mg IV Q8HR [facility] Last Admin: 12/02/19 16:39 Dose: 40 mg Documented by: Miscellaneous Information (Pneumonia Protocol Utilized) 1 each PO ONCE PRN PRN Reason: Per Protocol Miscellaneous Information (Pharmacy To Dose Iv Vancomycin) 1 each MISCELLANE DIRECTED PRN; Protocol PRN Reason: Per Protocol Naloxone HCl (Narcan) 0.2 mg IV Q2M PRN PRN Reason: Opioid Reversal Nicotine (Habitrol 21mg/24hr Patch) 1 patch TRANSDERM DAILY [facility] Last Admin: 12/02/19 12:34 Dose: 1 patch Documented by: Patient's Own ( (Auryxia 3 Tab)) 3 tab PO TID-W/MEALS [facility] Last Admin: 12/02/19 16:16 Dose: Not Given Documented by: Ondansetron HCl (Zofran) 4 mg IVP Q8HR PRN PRN Reason: Nausea And Vomiting Pantoprazole Sodium (Protonix) 40 mg PO AC-BID [facility] Last Admin: 12/02/19 17:17 Dose: 40 mg Documented by: Physical examination: VITAL SIGNS: 98, 64, 18, 116/80, 94% on room air GENERAL: Propped up in bed, awake. EYES: Pupils equal. Conjunctiva normal. HEENT: External appearance of nose and ears normal, oral cavity grossly normal. NECK: JVD not raised; masses not palpable. HEART: First and second heart sounds are normal; no edema. LUNGS: Respiratory rate increased, decreased breath sounds EXTREMITY: Left arm below elbow amputation. ABDOMEN: Soft, nontender, liver spleen not palpable, no masses palpable. PSYCH: Alert and oriented x3; mood and affect normal. INVESTIGATIONS, reviewed in the clinical context: Potassium 3.6 bun 81 creatinine 8.65 CRP 265 Previous testing White count 10.6 hemoglobin 10.5 platelets 235 sodium 126 potassium 3.8 bun 60 creatinine 10.5 Ferritin 2237, CRP 418, pro calcitonin 3.9 Chest x-ray film personally reviewed by me-shows infiltrates EKG tracing personally reviewed by me-sinus rhythm and nonspecific T-wave changes Thoracolumbar lumbar CT spine-multilevel DJD changes no acute findings Thoracolumbar spine x-ray DJD changes Lumbar spine MRI shows disc bulging at the L5-S1 side. And some DJD changes COVID-19 PCR-not detected, blood cultures positive for Staphylococcus aureus from November 29 and November 30 Assessment: - pneumonia with sepsis. POA -Blood cultures positive for Staphylococcus aureus-slow to respond repeat cultures are positive -Acute COPD exacerbation in a current smoker -Chronic nicotine dependence patient cigarette smoker -Lower lumbar spine and the adjoining area of pain appears to be sciatica with pain down the right leg. Orthopedics consulted -Coronary artery disease -Congestive heart failure EF not known -GERD -Hyperlipidemia -Essential hypertension -End-stage kidney disease on hemodialysis Saturday and Saturday -Hypothyroid Plan: IV cefepime -discontinued. On IV vancomycin. Other medications to continue. WBC is Being ordered by ID. Discussed with patient.
[2019-12-02] MEDS: ATORVASTATIN 80 MG TAB PO SCH (20:51)
[2019-12-03] MEDS: CARVEDILOL 12.5 MG TAB PO SCH ×2 (06:02→16:43)
[2019-12-03] MEDS: LEVOTHYROXINE 75 MCG TAB PO SCH (06:02)
[2019-12-03] MEDS: PANTOPRAZOLE 40 MG TABLET PO SCH ×2 (06:02→16:43)
[2019-12-03 06:10] LABS: Glucose,Whole Blood 129 mg/dL (75-99)
[2019-12-03] MEDS: INSULIN ASPART (NovoLOG) 100 UNIT/ML VIAL SQ SCH ×4 (06:16→20:53)
[2019-12-03 08:08] LABS: Calcium 9.7 mg/dL (8.4-10.2); Potassium 3.6 mmol/L (3.5-5.1)
[2019-12-03] MEDS: IPRATROPIUM-ALBUTEROL 3 ML NEB INHALATION SCH ×4 (08:46→20:38)
[2019-12-03] MEDS: AURYXIA PO SCH ×3 (09:02→16:47)
[2019-12-03] MEDS: CITALOPRAM HYDROBROMIDE 20 MG TAB PO SCH (09:14)
[2019-12-03] MEDS: busPIRone HCl 10 MG TAB PO SCH ×2 (09:14→20:53)
[2019-12-03] MEDS: ALLOPURINOL 100 MG TAB PO SCH (09:14)
[2019-12-03] MEDS: ASPIRIN 81 MG PO SCH (09:14)
[2019-12-03] MEDS: methylPREDNISolone SOD SUCCI 40 MG/ML 1 ML VIAL IV SCH ×3 (09:14→17:53)
[2019-12-03] MEDS: ENOXAPARIN 30 MG/0.3 ML SYRINGE SQ SCH (09:15)
[2019-12-03] MEDS: MAGNESIUM OXIDE 400 MG TAB PO SCH (09:15)
[2019-12-03] MEDS: NICOTINE 21MG/24HR PATCH TRANSDERM SCH (09:15)
[2019-12-03] MEDS: HYDROcodone/APAP 5-325MG 1 EACH TAB PO PRN ×2 (09:22→20:57)
[2019-12-03 11:24] LABS: Glucose,Whole Blood 141 mg/dL (75-99)
--- NOTE | 2019-12-03 13:26 | P.PN ---
Subjective Progress Note Date: 12/03/19 Principal diagnosis: Persistent bacteremia due to MRSA with positive second blood culture as well Right lower lobe developing pneumonia Acute COPD exacerbation Tracheobronchitis Gram-positive bacteremia cluster source not clear Severe degree of degenerative joint disease of spine, Right lower extremity pain Chronic renal failure stage V on hemodialysis 12/03/2019, labs reviewed medications reviewed respiratory status able, patient renal functions have slightly improved with dialysis, on room air his oxygen saturation 92%, respiratory status continued to improve, ID services following 12/02/2019, patient seen eval reexamined during the rounds labs reviewed medicat ions reviewed care plan discussed, patient's respiratory standpoint has been very good however her cultures remain positive for MRSA, ID services following no looking for the source of infection 12/01/2019, patient seen eval reexamined during the rounds labs reviewed medications reviewed shortness of breath and cough has been improved significantly patient has some pain in the spine with radiation to right leg, patient has been evaluated by infectious disease services and MRI of the thoracic spine has been ordered, to rule out discitis, white cell count is normal, patient is being followed by renal services for hemodialysis, This is a 59-year-old male with prior medical history of chronic renal failure on hemodialysis patient came into the hospital with for 5 day history of progressive back pain and neck pain, he was noted to be tachypneic as well as febrile up to 101 chest x-ray shows developing right lower lobe infiltrate the blood cultures are positive for gram-positive cocci in clusters patient likely is having sepsis due to gram-positive cocci source however is not clear with a component of COPD exacerbation as well and possibly right-sided pneumonia, patient's has significant history of congestive heart failure COPD dyslipidemia hypertension hypertensive cardiovascular disease and 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, CT of lumbar spine shows DJD and Doppler study results are pending, besides having leg pain no other numbness or weakness are present she does have ongoing shortness of breath intermittent cough just mostly nonproductive Objective - Vital Signs Vital signs: Vital Signs Temp 97.7 F 12/03/19 08:00 Pulse 60 12/03/19 12:10 Resp 16 12/03/19 11:39 BP 102/64 12/03/19 11:39 Pulse Ox 92 L 12/03/19 11:39 Intake & Output 12/02/19 12/03/19 12/03/19 18:59 06:59 18:59 Intake Total 480 240 240 Output Total 800 300 Balance -320 -60 240 Weight 80.1 kg Intake: Oral 480 240 240 Output: Urine 300 Hemodialysis 800 Other: # Voids 1 # Bowel Movements 2 - Exam - Constitutional General appearance: average body habitus, disheveled - EENT Eyes: PERRLA Ears: bilateral: normal - Neck Neck: normal ROM Carotids: bilateral: upstroke normal Thyroid: bilateral: normal size - Respiratory Respiratory: bilateral: diminished - Cardiovascular Rhythm: regular Heart sounds: normal: S1, S2 - Gastrointestinal General gastrointestinal: normal bowel sounds, soft - Integumentary Integumentary: decreased turgor - Neurologic Neurologic: CNII-XII intact - Musculoskeletal Musculoskeletal: generalized weakness, strength equal bilaterally - Psychiatric Psychiatric: A&O x's 3, appropriate affect - Labs CBC & Chem 7: 12/01/19 05:43 12/03/19 07:13 Labs: Abnormal Lab Results - Last 24 Hours (Table) 12/02/19 12/02/19 12/03/19 Range/Units 16:13 20:16 06:08 Sodium (137-145) mmol/L Chloride (98-107) mmol/L Carbon Dioxide (22-30) mmol/L BUN (9-20) mg/dL Creatinine (0.66-1.25) mg/dL Glucose (74-99) mg/dL POC Glucose (mg/dL) 131 H 127 H 129 H (75-99) mg/dL 12/03/19 12/03/19 Range/Units 07:13 11:24 Sodium 130 L (137-145) mmol/L Chloride 95 L (98-107) mmol/L Carbon Dioxide 19 L (22-30) mmol/L BUN 65 H (9-20) mg/dL Creatinine 6.76 H (0.66-1.25) mg/dL Glucose 129 H (74-99) mg/dL POC Glucose (mg/dL) 141 H (75-99) mg/dL Microbiology - Last 24 Hours (Table) 12/01/19 05:43 Blood Culture Gram Stain - Final Blood Blood Culture - Final Methicillin resist S. aureus 12/02/19 05:35 Blood Culture Gram Stain - Preliminary Blood 12/02/19 05:35 Blood Culture - Final Blood Assessment and Plan Assessment: Right lower lobe developing pneumonia Acute COPD exacerbation Tracheobronchitis MRSA bacteremia cluster source not clear May be related to line or endocarditis further recommendation per ID service Severe degree of degenerative joint disease of spine Right lower extremity pain Chronic renal failure stage V on hemodialysis Plan: Agree with continuation of vancomycin Repeat blood cultures results reviewed Appreciated infectious disease evaluation Continue breathing treatments, steroids Hemodialysis as planned Deep breathing exercise incentive spirometry Further plan of care as per clinical response of the patient Time with Patient: Greater than 30
--- NOTE | 2019-12-03 14:38 | PN ---
PROGRESS NOTE Patient is seen for followup for end-stage renal disease. He is sleeping comfortably today. His stomach seems to have settled down. Patient was started on Protonix. No other complaints today. PHYSICAL EXAMINATION: Blood pressure is 111/50, heart rate 62 per minute, he is afebrile. Examination of the heart S1, S2. Examination of the lungs, decreased breath sounds at bases. Abdomen is soft, nontender. Examination of the lower extremities shows no evidence of edema. Right leg pain is significantly improved. Patient has left below- elbow amputation. LABS: Show sodium 130, potassium 3.6, chloride 95, BUN 65, serum creatinine 6.76, calcium 9.7. ASSESSMENT: 1. End-stage renal disease, on hemodialysis on a Saturday, Saturday, Saturday schedule. 2. Severe right leg pain associated with osteoarthritis and some bulging discs at L5 and S1 being followed by Orthopedic Surgery. Also r/o diskitis. 3. Gastroesophageal reflux disease, started on Protonix, currently improved. 4. MRSA bacteremia, r/o discitis, WBC scan ordered. Maintained on Vancomycin PLAN: Hemodialysis in a.m. MMODL / IJN: [id number] / [id number]
--- NOTE | 2019-12-03 16:02 | P.PN ---
Progress Note - Text Progress Note Date: 12/03/19 Chief Complaint: Fever History of presenting complaint: This is a 59-year-old patient of Dr. Srini Hastings. Chronic stable medical conditions include end-stage kidney disease on hemodialysis Saturday and Saturday with the right arm fistula, anxiety, COPD, minimal bone disease, congestive heart failure EF 50%, coronary artery disease and left below elbow amputation. Patient's presents with symptoms of increasing pain in the right lower extremity starting off in the right lower back going on for over 6-7 days. Having a difficult to walk. Patient is also noted to have fevers has a chronic cough is an active smoker. Some baseline shortness of breath he states. Admitted for the same. Patient stated that about a week ago he and his brother bought a bowstring and to use the area to sit up and down quite a bit. And aspirin the pain started. Admitted with-pneumonia, severe lower back right SI joint pain.-Described as being ruled out, COPD exacerbation. Blood cultures positive for Staphylococcus aureus. Started on cefepime. IV Solu-Medrol. Bronchodilators. IV vancomycin. Repeat blood cultures are growing staph aureus. MRI of the spine was unremarkable Today-some lower back pain. Some shortness of breath. Tolerating a diet. Minimal cough. On antibiotics. WBC scan ordered per Dr. Beasley from ID. Review of systems: Was done for constitutional, cardiovascular, GI, pulmonary. relevant finding as above Active Medications Acetaminophen (Tylenol Tab) 650 mg PO Q6HR PRN PRN Reason: Mild Pain or Fever > 100.5 Hydrocodone Bitart/Acetaminophen ([place] 5-325) 1 each PO Q8H PRN PRN Reason: Pain Last Admin: 12/03/19 09:22 Dose: 1 each Documented by: Al Hydroxide/Mg Hydroxide (Maalox) 15 ml PO Q6HR PRN PRN Reason: Indigestion Last Admin: 12/02/19 11:03 Dose: 15 ml Documented by: Albuterol Sulfate (Ventolin Nebulized) 2.5 mg INHALATION RT-Q4H PRN PRN Reason: Shortness Of Breath Or Wheezing Albuterol/Ipratropium (Duoneb 0.5 Mg-3 Mg/3 Ml Soln) 3 ml INHALATION RT-QID [facility] Last Admin: 05/21/20 12:00 Dose: 3 ml Documented by: Allopurinol (Zyloprim) 100 mg PO QAM [facility] Last Admin: 12/03/19 09:14 Dose: 100 mg Documented by: Alprazolam (Xanax) 0.25 mg PO Q6HR PRN PRN Reason: Anxiety Aspirin (Aspirin) 81 mg PO DAILY [facility] Last Admin: 12/03/19 09:14 Dose: 81 mg Documented by: Atorvastatin Calcium (Lipitor) 80 mg PO HS [facility] Last Admin: 12/02/19 20:51 Dose: 80 mg Documented by: Buspirone HCl (Buspar) 20 mg PO BID [facility] Last Admin: 12/03/19 09:14 Dose: 20 mg Documented by: Calcium Carbonate/Glycine (Tums) 1,000 mg PO Q4HR PRN PRN Reason: Dyspepsia Carvedilol (Coreg) 12.5 mg PO AC-BID [facility] Last Admin: 12/03/19 06:02 Dose: 12.5 mg Documented by: Citalopram Hydrobromide (Celexa) 20 mg PO QAM [facility] Last Admin: 12/03/19 09:14 Dose: 20 mg Documented by: Enoxaparin Sodium (Lovenox) 30 mg SQ DAILY [facility] Last Admin: 12/03/19 09:15 Dose: 30 mg Documented by: Insulin Aspart (Novolog) 0 unit SQ [facility]; Protocol Last Admin: 12/03/19 12:19 Dose: 2 unit Documented by: Lactulose (Cephulac) 20 gm PO DAILY PRN PRN Reason: Constipation Levothyroxine Sodium (Synthroid) 75 mcg PO 0630 [facility] Last Admin: 12/03/19 06:02 Dose: 75 mcg Documented by: Magnesium Oxide (Mag-Ox) 400 mg PO DAILY [facility] Last Admin: 12/03/19 09:15 Dose: 400 mg Documented by: Melatonin (Melatonin) 3 mg PO HS PRN PRN Reason: Insomnia Methylprednisolone Sodium Succinate (Solu-Medrol) 40 mg IV Q8HR [facility] Last Admin: 12/03/19 09:14 Dose: 40 mg Documented by: Miscellaneous Information (Pneumonia Protocol Utilized) 1 each PO ONCE PRN PRN Reason: Per Protocol Miscellaneous Information (Pharmacy To Dose Iv Vancomycin) 1 each MISCELLANE DIRECTED PRN; Protocol PRN Reason: Per Protocol Naloxone HCl (Narcan) 0.2 mg IV Q2M PRN PRN Reason: Opioid Reversal Nicotine (Habitrol 21mg/24hr Patch) 1 patch TRANSDERM DAILY [facility] Last Admin: 12/03/19 09:15 Dose: 1 patch Documented by: Patient's Own ( (Auryxia 3 Tab)) 3 tab PO TID-W/MEALS [facility] Last Admin: 12/03/19 11:38 Dose: Not Given Documented by: Ondansetron HCl (Zofran) 4 mg IVP Q8HR PRN PRN Reason: Nausea And Vomiting Pantoprazole Sodium (Protonix) 40 mg PO AC-BID [facility] Last Admin: 12/03/19 06:02 Dose: 40 mg Documented by: Physical examination: VITAL SIGNS: 97.7, 62, 16, 111/50, 93% room air GENERAL: Propped up in bed, awake. EYES: Pupils equal. Conjunctiva normal. HEENT: External appearance of nose and ears normal, oral cavity grossly normal. NECK: JVD not raised; masses not palpable. HEART: First and second heart sounds are normal; no edema. LUNGS: Respiratory rate increased, decreased breath sounds EXTREMITY: Left arm below elbow amputation. ABDOMEN: Soft, nontender, liver spleen not palpable, no masses palpable. PSYCH: Alert and oriented x3; mood and affect normal. INVESTIGATIONS, reviewed in the clinical context: Sodium 1:30 potassium 3.6 creatinine 6.76 Blood cultures positive from December 01 with staph aureus Previous testing White count 10.6 hemoglobin 10.5 platelets 235 sodium 126 potassium 3.8 bun 60 creatinine 10.5 Ferritin 2237, CRP 418, pro calcitonin 3.9 Chest x-ray film personally reviewed by me-shows infiltrates EKG tracing personally reviewed by me-sinus rhythm and nonspecific T-wave changes Thoracolumbar lumbar CT spine-multilevel DJD changes no acute findings Thoracolumbar spine x-ray DJD changes Lumbar spine MRI shows disc bulging at the L5-S1 side. And some DJD changes COVID-19 PCR-not detected, blood cultures positive for Staphylococcus aureus from November 29 and November 30 Assessment: - pneumonia with sepsis. POA -Blood cultures positive for Staphylococcus aureus-slow to respond repeat cultures are positive-exact source unknown -Acute COPD exacerbation in a current smoker, improving -Chronic nicotine dependence patient cigarette smoker -Lower lumbar spine and the adjoining area of pain appears to be sciatica with pain down the right leg. Orthopedics consulted -Coronary artery disease -Congestive heart failure EF not known -GERD -Hyperlipidemia -Essential hypertension -End-stage kidney disease on hemodialysis Saturday and Saturday -Hypothyroid Plan: -On IV vancomycin. Other medications to continue. WBC whole-body scan pending. Decrease Solu-Medrol to 20 mg every 8.
[2019-12-03 16:25] LABS: Glucose,Whole Blood 130 mg/dL (75-99)
--- NOTE | 2019-12-03 19:44 | PN ---
PROGRESS NOTE DATE OF SERVICE: 12/03/2019 REASON FOR FOLLOWUP: MRSA bacteremia. INTERVAL HISTORY: The patient is currently afebrile. Patient is breathing comfortably. Denies any chest pain. Some cough but no sputum. No nausea. No vomiting and no abdominal pain and no worsening pain to the sacrum area, lower back area. PHYSICAL EXAMINATION: Blood pressure 132/72, pulse 63, temperature 97.9. He is 93% on room air. General description is a middle-aged male lying in bed in no distress. Respiratory system: Unlabored breathing, clear to auscultation anteriorly. Heart S1, S2. Regular rate and rhythm. ABDOMEN: Soft, no tenderness. LABS: BUN of 65, creatinine 6.76. Blood cultures from yesterday are positive as well. DIAGNOSTIC IMPRESSION AND PLAN: Patient with MRSA bacteremia, now with persistent bacteremia concern for endovascular or deep source. MRI of the lumbosacral spine did not show any evidence of discitis. We will go ahead while waiting for the WBC scan. Also ordered an echocardiogram. Blood culture has been done today and will be repeated tomorrow until he clears his bacteremia. Continue supportive care. Plan of care discussed with his admitting physician. MMODL / IJN: [id number] /
[2019-12-03 19:51] LABS: Glucose,Whole Blood 147 mg/dL (75-99)
[2019-12-03] MEDS: ATORVASTATIN 80 MG TAB PO SCH (20:53)
[2019-12-04] MEDS: methylPREDNISolone SOD SUCCI 40 MG/ML 1 ML VIAL IV SCH ×3 (01:00→17:32)
[2019-12-04] MEDS: LEVOTHYROXINE 75 MCG TAB PO SCH (05:59)
[2019-12-04] MEDS: CARVEDILOL 12.5 MG TAB PO SCH ×2 (05:59→17:31)
[2019-12-04] MEDS: PANTOPRAZOLE 40 MG TABLET PO SCH ×2 (05:59→17:44)
[2019-12-04] MEDS: INSULIN ASPART (NovoLOG) 100 UNIT/ML VIAL SQ SCH ×4 (06:01→20:54)
[2019-12-04 06:04] LABS: Glucose,Whole Blood 124 mg/dL (75-99)
[2019-12-04] MEDS: NICOTINE 21MG/24HR PATCH TRANSDERM SCH (08:22)
[2019-12-04] MEDS: IPRATROPIUM-ALBUTEROL 3 ML NEB INHALATION SCH ×4 (08:49→19:33)
[2019-12-04] MEDS ORDERED: VANCOMYCIN 1,500 MG in SODIUM CHLORIDE 0.9% 250 ML IVPB ONE (10:00)
--- NOTE | 2019-12-04 10:33 | ECHOF ---
Referral Reason:bacteremia MEASUREMENTS -------- HEIGHT: 177.8 cm WEIGHT: 80.7 kg BP: 123/72 RVIDd: 3.7 cm (< 3.3) IVSd: 1.5 cm (0.6 - 1.1) LVIDd: 5.6 cm (3.9 - 5.3) LVPWd: 1.4 cm (0.6 - 1.1) IVSs: 2.2 cm LVIDs: 3.3 cm LVPWs: 2.0 cm LA Diam: 4.0 cm (2.7 - 3.8) LAESV Index (A-L): 26.23 ml/m Ao Diam: 3.5 cm (2.0 - 3.7) AV Cusp: 2.3 cm (1.5 - 2.6) MV EXCURSION: 18.438 mm (> 18.000) MV EF SLOPE: 71 mm/s (70 - 150) EPSS: 0.8 cm MV E Manny: 0.84 m/s MV DecT: 253 ms MV A Manny: 0.91 m/s MV E/A Ratio: 0.93 RAP: 5.00 mmHg RVSP: 34.87 mmHg FINDINGS -------- Resting bradycardia (HR<60bpm). This was a technically adequate study. The left ventricular size is normal. There is moderate concentric left ventricular hypertrophy. O verall left ventricular systolic function is low-normal with, an EF between 50 - 55 %. Basal inferi or LV wall motion is hypokinetic. The right ventricle is mild to moderately enlarged. Normal LA size by volume 22+/-6 ml/m2. The right atrium is normal in size. Interatrial and interventricular septum intact. There is mild aortic valve sclerosis. The mitral valve leaflets are mildly thickened. Mild mitral annular calcification present. Mild m itral regurgitation is present. Mild tricuspid regurgitation present. There is mild pulmonary hypertension. The right ventricular systolic pressure, as measured by Doppler, is 34.87mmHg. There is no pulmonic regurgitation present. The aortic root size is normal. Normal inferior vena cava with normal inspiratory collapse consistent with estimated right atrial pre ssure of 5 mmHg. There is no pericardial effusion. CONCLUSIONS -------- 1. Resting bradycardia (HR<60bpm). 2. This was a technically adequate study. 3. The left ventricular size is normal. 4. There is moderate concentric left ventricular hypertrophy. 5. Overall left ventricular systolic function is low-normal with, an EF between 50 - 55 %. 6. Basal inferior LV wall motion is hypokinetic. 7. The right ventricle is mild to moderately enlarged. 8. Normal LA size by volume 22+/-6 ml/m2. 9. The right atrium is normal in size. 10. Interatrial and interventricular septum intact. 11. There is mild aortic valve sclerosis. 12. The mitral valve leaflets are mildly thickened. 13. Mild mitral annular calcification present. 14. Mild mitral regurgitation is present. 15. Mild tricuspid regurgitation present. 16. There is mild pulmonary hypertension. 17. The right ventricular systolic pressure, as measured by Doppler, is 34.87mmHg. 18. There is no pulmonic regurgitation present. 19. The aortic root size is normal. 20. Normal inferior vena cava with normal inspiratory collapse consistent with estimated right atrial pressure of 5 mmHg. 21. There is no pericardial effusion. PRISON GUARD: Monica Perez RDCS
[2019-12-04] MEDS: ENOXAPARIN 30 MG/0.3 ML SYRINGE SQ SCH (11:47)
[2019-12-04] MEDS: CITALOPRAM HYDROBROMIDE 20 MG TAB PO SCH (11:47)
[2019-12-04] MEDS: busPIRone HCl 10 MG TAB PO SCH ×2 (11:48→20:56)
[2019-12-04] MEDS: HYDROcodone/APAP 5-325MG 1 EACH TAB PO PRN ×2 (11:49→20:54)
[2019-12-04] MEDS: ASPIRIN 81 MG PO SCH (11:49)
[2019-12-04] MEDS: ALLOPURINOL 100 MG TAB PO SCH (11:49)
[2019-12-04] MEDS: MAGNESIUM OXIDE 400 MG TAB PO SCH (11:49)
[2019-12-04 11:51] LABS: Glucose,Whole Blood 106 mg/dL (75-99)
--- NOTE | 2019-12-04 12:14 | PN ---
PROGRESS NOTE Patient is seen for followup for end-stage renal disease. He is due for hemodialysis today. Patient was admitted with right lower extremity pain, currently maintained on steroids, status post MRI which showed evidence of bulging disk at L5-S1. WBC scan was ordered by ID as he was noted to have MRSA bacteremia. PHYSICAL EXAMINATION: On examination today, blood pressure was 123/72, heart rate 63 per minute, he is afebrile. Examination of the heart S1, S2. Examination of the lungs, decreased breath sounds at the bases. Abdomen is soft, nontender. Examination of the lower extremities shows no evidence of edema. TRACK SWEEPER exam is grossly intact. LABS: From yesterday show sodium 130, potassium 3.6, BUN 65, creatinine 6.76. ASSESSMENT: 1. End-stage renal disease, on hemodialysis on a Saturday, Saturday, Saturday schedule. 2. MRSA bacteremia, being followed by ID, status post WBC scan, results of which is pending, maintained on vancomycin. 3. Right lower extremity pain, rule out ongoing diskitis given the persistent bacteremia. 4. CKD mineral bone disorder. 5. Hypertension, currently controlled. PLAN: Hemodialysis today, continue antibiotics, follow up on results of the WBC scan. MMODL / IJN: [id number] /
--- NOTE | 2019-12-04 13:43 | NM ---
EXAMINATION TYPE: NM WBC whole body DATE OF EXAM: 12/04/2019 COMPARISON: Lumbar MRI 12/01/2019 HISTORY: Low back pain TECHNIQUE: Following administration of 12.7 mCi Tc99m Ceretec. Images obtained 4 hour(s) and 23 naresh r(s) post injection. FINDINGS: Normal physiological tracer activity is noted in the liver and spleen, colon and in the bone marrow o f the axial and appendicular skeleton. IMPRESSION: Normal white blood cell scan. No evidence for abnormal tracer activity.
--- NOTE | 2019-12-04 14:41 | P.PN ---
Subjective Progress Note Date: 12/04/19 Principal diagnosis: Persistent bacteremia due to MRSA with positive second blood culture as well Right lower lobe developing pneumonia Acute COPD exacerbation Tracheobronchitis Gram-positive bacteremia cluster source not clear Severe degree of degenerative joint disease of spine, Right lower extremity pain Chronic renal failure stage V on hemodialysis 12/04/2019, patient seen and evaluated examined during the rounds labs reviewed medications reviewed care plan discussed with patient, echocardiogram shows ejection fraction of 55% with some basal ocean abnormalities no valvular dysfunction has been noted, awaiting WBC scan, patient has been room air breathing comfortably 12/03/2019, labs reviewed medications reviewed respiratory status able, patient renal functions have slightly improved with dialysis, on room air his oxygen saturation 92%, respiratory status continued to improve, ID services following 12/02/2019, patient seen eval reexamined during the rounds labs reviewed medications reviewed care plan discussed, patient's respiratory standpoint has been very good however her cultures remain positive for MRSA, ID services following no looking for the source of infection 12/01/2019, patient seen eval reexamined during the rounds labs reviewed medica tions reviewed shortness of breath and cough has been improved significantly patient has some pain in the spine with radiation to right leg, patient has been evaluated by infectious disease services and MRI of the thoracic spine has been ordered, to rule out discitis, white cell count is normal, patient is being followed by renal services for hemodialysis, This is a 59-year-old male with prior medical history of chronic renal failure on hemodialysis patient came into the hospital with for 5 day history of progressive back pain and neck pain, he was noted to be tachypneic as well as febrile up to 101 chest x-ray shows developing right lower lobe infiltrate the blood cultures are positive for gram-positive cocci in clusters patient likely is having sepsis due to gram-positive cocci source however is not clear with a component of COPD exacerbation as well and possibly right-sided pneumonia, patient's has significant history of congestive heart failure COPD dyslipidemia hypertension hypertensive cardiovascular disease and 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, CT of lumbar spine shows DJD and Doppler study results are pending, besides having leg pain no other numbness or weakness are present she does have ongoing shortness of breath intermittent cough just mostly nonproductive Objective - Vital Signs Vital signs: Vital Signs Temp 98.0 F 12/04/19 12:43 Pulse 64 12/04/19 12:43 Resp 20 05/22/20 12:43 BP 131/59 12/04/19 12:43 Pulse Ox 91 L 12/04/19 12:00 Intake & Output 12/03/19 12/04/19 12/04/19 18:59 06:59 18:59 Intake Total 240 200 360 Output Total 150 Balance 240 50 360 Weight 81 kg Intake: Oral 240 200 360 Output: Urine 150 - Exam - Constitutional General appearance: average body habitus, disheveled - EENT Eyes: PERRLA Ears: bilateral: normal - Neck Neck: normal ROM Carotids: bilateral: upstroke normal Thyroid: bilateral: normal size - Respiratory Respiratory: bilateral: diminished - Cardiovascular Rhythm: regular Heart sounds: normal: S1, S2 - Gastrointestinal General gastrointestinal: normal bowel sounds, soft - Integumentary Integumentary: decreased turgor - Neurologic Neurologic: CNII-XII intact - Musculoskeletal Musculoskeletal: generalized weakness, strength equal bilaterally - Psychiatric Psychiatric: A&O x's 3, appropriate affect - Labs CBC & Chem 7: 12/01/19 05:43 12/03/19 07:13 Labs: Abnormal Lab Results - Last 24 Hours (Table) 12/03/19 12/03/19 12/04/19 Range/Units 16:24 19:49 06:01 POC Glucose (mg/dL) 130 H 147 H 124 H (75-99) mg/dL 12/04/19 Range/Units 11:51 POC Glucose (mg/dL) 106 H (75-99) mg/dL Microbiology - Last 24 Hours (Table) 12/03/19 07:20 Blood Culture Gram Stain - Preliminary Blood 12/02/19 05:35 Blood Culture Gram Stain - Final Blood Blood Culture - Final Methicillin resist S. aureus 12/03/19 07:20 Blood Culture - Final Blood 12/01/19 05:43 Blood Culture Gram Stain - Final Blood Blood Culture - Final Methicillin resist S. aureus Assessment and Plan Assessment: Right lower lobe developing pneumonia Acute COPD exacerbation Tracheobronchitis MRSA bacteremia cluster source not clear May be related to line or endocarditis further recommendation per ID service Severe degree of degenerative joint disease of spine Right lower extremity pain Chronic renal failure stage V on hemodialysis Plan: Agree with continuation of vancomycin Repeat blood cultures results reviewed Appreciated infectious disease evaluation Continue breathing treatments, steroids Hemodialysis as planned Deep breathing exercise incentive spirometry Further plan of care as per clinical response of the patient Time with Patient: Greater than 30
[2019-12-04] MEDS: AURYXIA PO SCH ×3 (14:54→17:22)
--- NOTE | 2019-12-04 15:02 | P.PN ---
Progress Note - Text Progress Note Date: 12/04/19 Chief Complaint: Fever History of presenting complaint: This is a 59-year-old patient of Dr. Srini Hastings. Chronic stable medical conditions include end-stage kidney disease on hemodialysis Saturday and Saturday with the right arm fistula, anxiety, COPD, minimal bone disease, congestive heart failure EF 50%, coronary artery disease and left below elbow amputation. Patient's presents with symptoms of increasing pain in the right lower extremity starting off in the right lower back going on for over 6-7 days. Having a difficult to walk. Patient is also noted to have fevers has a chronic cough is an active smoker. Some baseline shortness of breath he states. Admitted for the same. Patient stated that about a week ago he and his brother bought a bowstring and to use the area to sit up and down quite a bit. And aspirin the pain started. Admitted with-pneumonia, severe lower back right SI joint pain.-Described as being ruled out, COPD exacerbation. Blood cultures positive for Staphylococcus aureus. Started on cefepime. IV Solu-Medrol. Bronchodilators. IV vancomycin. Repeat blood cultures are growing staph aureus. MRI of the spine was unremarkable Today-back pain is better. Breathing is better. Getting hemodialysis today. Underwent a white blood cell scan today. This afternoon.-Did not show any source of infection. Review of systems: Was done for constitutional, cardiovascular, GI, pulmonary. relevant finding as above Active Medications Acetaminophen (Tylenol Tab) 650 mg PO Q6HR PRN PRN Reason: Mild Pain or Fever > 100.5 Hydrocodone Bitart/Acetaminophen ([place] 5-325) 1 each PO Q8H PRN PRN Reason: Pain Last Admin: 12/04/19 11:49 Dose: 1 each Documented by: Al Hydroxide/Mg Hydroxide (Maalox) 15 ml PO Q6HR PRN PRN Reason: Indigestion Last Admin: 12/02/19 11:03 Dose: 15 ml Documented by: Albuterol Sulfate (Ventolin Nebulized) 2.5 mg INHALATION RT-Q4H PRN PRN Reason: Shortness Of Breath Or Wheezing Albuterol/Ipratropium (Duoneb 0.5 Mg-3 Mg/3 Ml Soln) 3 ml INHALATION RT-QID [facility] Last Admin: 12/04/19 13:38 Dose: Not Given Documented by: Allopurinol (Zyloprim) 100 mg PO QAM [facility] Last Admin: 12/04/19 11:49 Dose: 100 mg Documented by: Alprazolam (Xanax) 0.25 mg PO Q6HR PRN PRN Reason: Anxiety Aspirin (Aspirin) 81 mg PO DAILY [facility] Last Admin: 12/04/19 11:49 Dose: 81 mg Documented by: Atorvastatin Calcium (Lipitor) 80 mg PO HS [facility] Last Admin: 12/03/19 20:53 Dose: 80 mg Documented by: Buspirone HCl (Buspar) 20 mg PO BID [facility] Last Admin: 12/04/19 11:48 Dose: 20 mg Documented by: Calcium Carbonate/Glycine (Tums) 1,000 mg PO Q4HR PRN PRN Reason: Dyspepsia Carvedilol (Coreg) 12.5 mg PO AC-BID [facility] Last Admin: 12/04/19 05:59 Dose: 12.5 mg Documented by: Citalopram Hydrobromide (Celexa) 20 mg PO QAM [facility] Last Admin: 12/04/19 11:47 Dose: 20 mg Documented by: Enoxaparin Sodium (Lovenox) 30 mg SQ DAILY [facility] Last Admin: 12/04/19 11:47 Dose: 30 mg Documented by: Insulin Aspart (Novolog) 0 unit SQ [facility]; Protocol Last Admin: 12/04/19 11:58 Dose: Not Given Documented by: Lactulose (Cephulac) 20 gm PO DAILY PRN PRN Reason: Constipation Levothyroxine Sodium (Synthroid) 75 mcg PO 0630 [facility] Last Admin: 12/04/19 05:59 Dose: 75 mcg Documented by: Magnesium Oxide (Mag-Ox) 400 mg PO DAILY [facility] Last Admin: 12/04/19 11:49 Dose: 400 mg Documented by: Melatonin (Melatonin) 3 mg PO HS PRN PRN Reason: Insomnia Methylprednisolone Sodium Succinate (Solu-Medrol) 20 mg IV Q8HR [facility] Last Admin: 12/04/19 11:51 Dose: 20 mg Documented by: Miscellaneous Information (Pneumonia Protocol Utilized) 1 each PO ONCE PRN PRN Reason: Per Protocol Miscellaneous Information (Pharmacy To Dose Iv Vancomycin) 1 each MISCELLANE DIRECTED PRN; Protocol PRN Reason: Per Protocol Naloxone HCl (Narcan) 0.2 mg IV Q2M PRN PRN Reason: Opioid Reversal Nicotine (Habitrol 21mg/24hr Patch) 1 patch TRANSDERM DAILY [facility] Last Admin: 12/04/19 08:22 Dose: 1 patch Documented by: Patient's Own ( (Auryxia 3 Tab)) 3 tab PO TID-W/MEALS [facility] Last Admin: 12/03/19 16:47 Dose: Not Given Documented by: Ondansetron HCl (Zofran) 4 mg IVP Q8HR PRN PRN Reason: Nausea And Vomiting Pantoprazole Sodium (Protonix) 40 mg PO AC-BID [facility] Last Admin: 12/04/19 05:59 Dose: 40 mg Documented by: Physical examination: VITAL SIGNS: 97.9, 64, 16, 139/64, 91% on room air GENERAL: Laying in bed, comfortable EYES: Pupils equal. Conjunctiva normal. HEENT: External appearance of nose and ears normal, oral cavity grossly normal. NECK: JVD not raised; masses not palpable. HEART: First and second heart sounds are normal; no edema. LUNGS: Respiratory rate increased, decreased breath sounds EXTREMITY: Left arm below elbow amputation. ABDOMEN: Soft, nontender, liver spleen not palpable, no masses palpable. PSYCH: Alert and oriented x3; mood and affect normal. INVESTIGATIONS, reviewed in the clinical context: Sodium 1:30 potassium 3.6 creatinine 6.76 Blood cultures positive from November 29, , , -with MRSA Previous testing White count 10.6 hemoglobin 10.5 platelets 235 sodium 126 potassium 3.8 bun 60 creatinine 10.5 Ferritin 2237, CRP 418, pro calcitonin 3.9 Chest x-ray film personally reviewed by me-shows infiltrates EKG tracing personally reviewed by me-sinus rhythm and nonspecific T-wave changes Thoracolumbar lumbar CT spine-multilevel DJD changes no acute findings Thoracolumbar spine x-ray DJD changes Lumbar spine MRI shows disc bulging at the L5-S1 side. And some DJD changes COVID-19 PCR-not detected, blood cultures positive for Staphylococcus aureus from November 29 and November 30 Assessment: - pneumonia with sepsis. POA -Blood cultures positive for Staphylococcus aureus-slow to respond repeat cultures are positive- source unknown -Acute COPD exacerbation in a current smoker, improving -Chronic nicotine dependence patient cigarette smoker -Lower lumbar spine and the adjoining area of pain appears to be sciatica with pain down the right leg. Orthopedics consulted -Coronary artery disease -Congestive heart failure EF not known -GERD -Hyperlipidemia -Essential hypertension -End-stage kidney disease on hemodialysis Saturday and Saturday -Hypothyroid Plan: -On IV vancomycin. WBC scan is unremarkable. Other medications to continue. Will discuss with Dr. Mackay from ID. Possibility of hemodialysis access catheter as a source of infection
[2019-12-04 16:44] LABS: Glucose,Whole Blood 145 mg/dL (75-99)
--- NOTE | 2019-12-04 17:11 | PN ---
PROGRESS NOTE DATE OF SERVICE: 12/04/2019 REASON FOR FOLLOWUP: MRSA bacteremia and no clear focus. INTERVAL HISTORY: The patient is currently afebrile. The patient overall is feeling better. Breathing comfortably. Pain to the neck area is currently controlled. No chest pain, shortness of breath or cough. No abdominal pain or diarrhea. PHYSICAL EXAMINATION: Blood pressure 131/63 with a pulse of 65, temperature of 98, he is 96% on room air. General description is a middle-aged male, lying in bed in no distress. RESPIRATORY SYSTEM: Unlabored breathing, clear to auscultation anteriorly. HEART: S1, S2. Regular rate and rhythm. ABDOMEN: Soft, no tenderness. Right arm AV graft site looks clean with no erythema or any redness. LABS: Blood culture from 12/02 positive as well. Vanco level was therapeutic at 18, WBC scan is negative. Echocardiogram was negative. DIAGNOSTIC IMPRESSION AND PLAN: Patient with MRSA bacteremia with persistent bacteremia concern likely for defocus or endovascular source. Echocardiogram negative. Repeat CT scan negative. MRI of the lumbosacral spine was negative as well, even though he did have pain in the sacral area. RICO will be requested. Vancomycin to continue. Waiting for the blood cultures to be negative and continue supportive care. MMODL / IJN: [id number] /
[2019-12-04 20:37] LABS: Glucose,Whole Blood 131 mg/dL (75-99)
[2019-12-04] MEDS: ATORVASTATIN 80 MG TAB PO SCH (20:56)
[2019-12-05] MEDS: methylPREDNISolone SOD SUCCI 40 MG/ML 1 ML VIAL IV SCH ×4 (00:07→23:01)
[2019-12-05 06:23] LABS: Glucose,Whole Blood 150 mg/dL (75-99)
[2019-12-05] MEDS: PANTOPRAZOLE 40 MG TABLET PO SCH ×2 (06:39→17:24)
[2019-12-05] MEDS: CARVEDILOL 12.5 MG TAB PO SCH ×2 (06:39→17:24)
[2019-12-05] MEDS: INSULIN ASPART (NovoLOG) 100 UNIT/ML VIAL SQ SCH ×4 (06:39→20:25)
[2019-12-05] MEDS: LEVOTHYROXINE 75 MCG TAB PO SCH (06:39)
[2019-12-05] MEDS: HYDROcodone/APAP 5-325MG 1 EACH TAB PO PRN ×2 (06:44→18:19)
[2019-12-05] MEDS: AURYXIA PO SCH ×3 (06:57→16:32)
[2019-12-05] MEDS: IPRATROPIUM-ALBUTEROL 3 ML NEB INHALATION SCH ×4 (08:09→19:56)
--- NOTE | 2019-12-05 08:20 | P.CRDCN ---
History of Present Illness History of present illness: This is Dr. Gillespie dictating a consult on this patient The patient was interviewed and examined by me IMPRESSION / ASSESSMENT: Positive blood cultures, pneumonia, blood cultures growing staph aureus, unknown source Known coronary artery disease Dyslipidemia Hypertension End-stage kidney disease on hemodialysis Current smoker 2-D echo does not show any masses or any suspicious valvular problems No cardiac murmur appreciated PLAN: Continue antibiotics No clear-cut evidence for endocarditis on 2-D echo at this time Blood pressure control Continue statins Will follow HPI 59-year-old female patient of Dr. Hastings with end-stage kidney disease on hemodialysis, right arm fistula and last known ejection fraction of 50%, coronary artery disease, left below elbow habitation who started having fever. Initially admitted with pneumonia. Severe low back pain. Blood cultures positive for staph aureus started on cephalosporins Repeat blood cultures growing staph aureus MRI of the spine unremarkable and the white blood cell scan was also unrevealing She is on Solu-Medrol ROS: No fever chills or rigors, no cough, phlegm or expectoration, no nausea, vomiting or diarrhea, no hematuria, dysuria, no musculoskeletal complaints, no strokes or seizures, no skin lesions. EXAMINATION: He has scoliosis and habitation, below elbow and the forearm. Difficult to move around His lungs are clear Heart sounds are normal no murmurs appreciated No edema REVIEW OF LABS, ECG & MEDICAL DATA Normal white count of 10.5 thousand, sodium 1:30, potassium 3.6, creatinine 6.76 C-reactive protein to 65 Currently on vancomycin Covid negative Past Medical History Past Medical History: Coronary Artery Disease (CAD), Heart Failure, COPD, G ERD/Reflux, Hyperlipidemia, Hypertension, Renal Disease, Thyroid Disorder Additional Past Medical History / Comment(s): Chronic kidney failure with hemodialysis on Saturday, Saturday and Fridays with last time being 03/28/18, chronic anemia, cardiomyopathy, c"blood clot in my heart years ago", hypothyroid, post op I&D L submax abscess pt had respiratory failure and was vented. 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 Past Anesthesia/Blood Transfusion Reactions: No Reported Reaction Additional Past Anesthesia/Blood Transfusion Reaction / Comment(s): Pt has received blood without reaction. Past Psychological History: No Psychological Hx Reported Smoking Status: Current every day smoker Past Alcohol Use History: None Reported Past Drug Use History: None Reported - Past Family History Father Family Medical History: Diabetes Mellitus, Hypertension, Renal Disease Additional Family Medical History / Comment(s): Father was on hemodialysis Mother Family Medical History: Hypertension Medications and Allergies Home Medications Medication Instructions Recorded Confirmed Type Allopurinol [Zyloprim] 100 mg PO QAM 01/16/18 12/02/19 History Aspirin EC [Ecotrin Low Dose] 81 mg PO DAILY 01/16/18 12/02/19 History Citalopram Hydrobromide [CeleXA] 20 mg PO QAM 01/16/18 12/02/19 History Levothyroxine Sodium [Synthroid] 75 mcg PO DAILY 01/16/18 12/02/19 History Magnesium Oxide [Mag-Ox] 400 mg PO DAILY 01/16/18 12/02/19 History Atorvastatin [Lipitor] 80 mg PO HS #30 tab 01/29/18 12/02/19 Rx Carvedilol [Coreg*] 12.5 mg PO AC-BID #60 tab 01/30/18 12/02/19 Rx Auryxia 3 tab PO TID-W/MEALS 03/31/18 12/02/19 History Furosemide [Lasix] 80 mg PO BID 03/31/18 12/02/19 History hydrALAZINE HCL [Apresoline] 25 mg PO TID #90 tab 04/01/18 12/02/19 Rx Albuterol Inhaler [Ventolin Hfa 2 puff INHALATION RT-Q6H PRN 11/30/19 12/02/19 History Inhaler] Auryxia 1 - 2 tab PO BID PRN 11/30/19 12/02/19 History Famotidine [Pepcid] 20 mg PO QAM 11/30/19 12/02/19 History Vitamin D2 (Unknown Strength) 1 tab PO DAILY@12 11/30/19 12/02/19 History amLODIPine [Norvasc] 10 mg PO QAM 11/30/19 12/02/19 History busPIRone HCl [Buspar] 20 mg PO BID 11/30/19 12/02/19 History Allergies Allergy/AdvReac Type Severity Reaction Status Date / Time Penicillins Allergy Unknown Verified 12/02/19 10:04 Childhood Physical Exam Vitals: Vital Signs Temp Pulse Pulse Resp BP BP BP 12/05/19 04:00 98.0 F 62 16 146/79 12/05/19 00:00 98.0 F 60 16 119/77 12/04/19 20:00 97.8 F 56 L 18 134/75 12/04/19 19:34 63 12/04/19 16:00 97.7 F 65 16 131/63 12/04/19 15:46 64 12/04/19 15:37 64 12/04/19 12:43 98.0 F 64 20 131/59 12/04/19 12:00 97.9 F 64 16 139/64 12/04/19 08:00 97.7 F 57 L 16 164/57 Pulse Ox 12/05/19 04:00 97 12/05/19 00:00 94 L 12/04/19 20:00 94 L 12/04/19 19:34 12/04/19 16:00 96 12/04/19 15:46 12/04/19 15:37 12/04/19 12:43 12/04/19 12:00 91 L 12/04/19 08:00 91 L Intake and Output 12/04/19 12/05/19 12/05/19 22:59 06:59 14:59 Intake Total 480 240 Balance 480 240 Intake: Oral 480 240 Other: # Voids 0 Weight 81 kg Results 12/01/19 05:43 12/05/19 06:36 Comprehensive Metabolic Panel 12/05/19 Range/Units 06:36 Creatinine 6.31 H (0.66-1.25) mg/dL Current Medications Generic Name Dose Route Start Last Admin Trade Name Freq PRN Reason Stop Dose Admin Acetaminophen 650 mg 11/30/19 17:31 Tylenol Tab PO Q6HR PRN Mild Pain or Fever > 100.5 Hydrocodone Bitart/Acetaminophen 1 each 11/30/19 14:09 12/05/19 06:44 [place] 5-325 PO 1 each Q8H PRN Administration Pain Al Hydroxide/Mg Hydroxide 15 ml 11/30/19 17:31 12/02/19 11:03 Maalox PO 15 ml Q6HR PRN Administration Indigestion Albuterol Sulfate 2.5 mg 11/30/19 04:36 Ventolin Nebulized INHALATION RT-Q4H PRN Shortness Of Breath Or Wheezing Albuterol/Ipratropium 3 ml 11/30/19 08:00 12/04/19 19:33 Duoneb 0.5 Mg-3 Mg/3 Ml Soln INHALATION 3 ml RT-QID AILYN Administration Allopurinol 100 mg 11/30/19 18:00 12/04/19 11:49 Zyloprim PO 100 mg QAM AILYN Administration Alprazolam 0.25 mg 11/30/19 17:31 Xanax PO Q6HR PRN Anxiety Aspirin 81 mg 12/01/19 09:00 12/04/19 11:49 Aspirin PO 81 mg DAILY AILYN Administration Atorvastatin Calcium 80 mg 11/30/19 21:00 12/04/19 20:56 Lipitor PO 80 mg HS AILYN Administration Buspirone HCl 20 mg 11/30/19 21:00 12/04/19 20:56 Buspar PO 20 mg BID AILYN Administration Calcium Carbonate/Glycine 1,000 mg 11/30/19 17:31 Tums PO Q4HR PRN Dyspepsia Carvedilol 12.5 mg 11/30/19 17:30 12/05/19 06:39 Coreg PO 12.5 mg AC-BID AILYN Administration Citalopram Hydrobromide 20 mg 12/01/19 09:00 12/04/19 11:47 Celexa PO 20 mg QAM AILYN Administration Enoxaparin Sodium 30 mg 11/30/19 09:00 12/04/19 11:47 Lovenox SQ 30 mg DAILY AILYN Administration Insulin Aspart 0 unit 11/30/19 21:00 12/05/19 06:39 Novolog SQ 2 unit ACHS [facility] Administration Protocol Lactulose 20 gm 11/30/19 17:31 Cephulac PO DAILY PRN Constipation Levothyroxine Sodium 75 mcg 12/01/19 06:30 12/05/19 06:39 Synthroid PO 75 mcg 0630 AILYN Administration Magnesium Oxide 400 mg 12/01/19 09:00 12/04/19 11:49 Mag-Ox PO 400 mg DAILY AILYN Administration Melatonin 3 mg 11/30/19 17:31 Melatonin PO HS PRN Insomnia Methylprednisolone Sodium Succinate 20 mg 12/03/19 16:00 12/05/19 00:07 Solu-Medrol IV 20 mg Q8HR AILYN Administration Miscellaneous Information 1 each 11/30/19 04:36 Pneumonia Protocol Utilized PO ONCE PRN Per Protocol Miscellaneous Information 1 each 11/30/19 04:37 Pharmacy To Dose Iv Vancomycin MISCELLANE DIRECTED PRN Per Protocol Protocol Naloxone HCl 0.2 mg 11/30/19 17:31 Narcan IV Q2M PRN Opioid Reversal Nicotine 1 patch 11/30/19 17:45 12/04/19 08:22 Habitrol 21mg/24hr Patch TRANSDERM 1 patch DAILY AILYN Administration Patient's Own ( 3 tab 11/30/19 17:30 12/05/19 06:57 Auryxia 3 Tab) PO Not Given TID-W/MEALS AILYN Ondansetron HCl 4 mg 11/30/19 17:31 Zofran IVP Q8HR PRN Nausea And Vomiting Pantoprazole Sodium 40 mg 12/02/19 12:31 12/05/19 06:39 Protonix PO 40 mg AC-BID AILYN Administration Intake and Output 12/04/19 12/05/19 12/05/19 22:59 06:59 14:59 Intake Total 480 240 Balance 480 240 Intake: Oral 480 240 Other: # Voids 0 Weight 81 kg 12/01/19 05:43 12/05/19 06:36
[2019-12-05] MEDS: ALLOPURINOL 100 MG TAB PO SCH (08:55)
[2019-12-05] MEDS: busPIRone HCl 10 MG TAB PO SCH ×2 (08:56→20:25)
[2019-12-05] MEDS: ENOXAPARIN 30 MG/0.3 ML SYRINGE SQ SCH (08:56)
[2019-12-05] MEDS: ASPIRIN 81 MG PO SCH (08:56)
[2019-12-05] MEDS: CITALOPRAM HYDROBROMIDE 20 MG TAB PO SCH (08:56)
[2019-12-05] MEDS: NICOTINE 21MG/24HR PATCH TRANSDERM SCH (08:56)
[2019-12-05] MEDS: MAGNESIUM OXIDE 400 MG TAB PO SCH (08:56)
--- NOTE | 2019-12-05 11:04 | P.PN ---
Subjective Patient is seen in follow-up for incisional disease. He is maintained on hemodialysis on Saturday schedule. He has a right upper ex tremity AV fistula. Patient is on IV antibiotics for MRSA bacteremia. Patient denies any complaints. Vital signs are stable. General: The patient appeared well nourished and normally developed. HEENT: Head exam is unremarkable. Neck is without jugular venous distension. LUNGS: Lungs are clear to auscultation and percussion. Breath sounds decreased. HEART: Rate and Rhythm are regular. ABDOMEN: Abdominal exam reveals normal bowel sounds. Non-tender and non- distended. EXTREMITITES: No clubbing, cyanosis, or edema. Objective - Vital Signs Vital signs: Vital Signs Temp 97.6 F 12/05/19 08:00 Pulse 68 12/05/19 08:19 Resp 16 12/05/19 08:00 BP 129/61 12/05/19 08:00 Pulse Ox 92 L 12/05/19 08:00 Intake & Output 12/04/19 12/05/19 12/05/19 18:59 06:59 18:59 Intake Total 360 480 240 Balance 360 480 240 Weight 81 kg Intake: Oral 360 480 240 Other: # Voids 0 - Labs CBC & Chem 7: 12/01/19 05:43 12/05/19 06:36 Labs: Abnormal Lab Results - Last 24 Hours (Table) 12/04/19 12/04/19 12/04/19 Range/Units 11:51 16:43 20:35 Creatinine (0.66-1.25) mg/dL POC Glucose (mg/dL) 106 H 145 H 131 H (75-99) mg/dL 12/05/19 12/05/19 Range/Units 06:22 06:36 Creatinine 6.31 H (0.66-1.25) mg/dL POC Glucose (mg/dL) 150 H (75-99) mg/dL Microbiology - Last 24 Hours (Table) 12/04/19 06:02 Blood Culture Gram Stain - Preliminary Blood 12/04/19 06:02 Blood Culture - Final Blood 12/03/19 07:20 Blood Culture Gram Stain - Preliminary Blood Blood Culture - Preliminary Presumptive MRSA 12/02/19 05:35 Blood Culture Gram Stain - Final Blood Blood Culture - Final Methicillin resist S. aureus Assessment and Plan Plan: Assessment: 1. End-stage renal disease maintained on hemodialysis on Saturday schedule via right upper extremity AV fistula. 2. Persistent MRSA bacteremia. Unclear source. Maintained on IV antibiotics. WBC scan negative. 3. Hypertension with chronic kidney disease. Controlled. 4. Chronic kidney disease mineral bone disease. Plan: Hemodialysis on Saturday. Target vancomycin level less than 20. RICO pending. Add Renvela with meals.
[2019-12-05 12:17] LABS: Glucose,Whole Blood 142 mg/dL (75-99)
[2019-12-05] MEDS: SEVELAMER 800 MG TAB PO SCH ×2 (12:38→17:24)
--- NOTE | 2019-12-05 13:18 | P.PN ---
Subjective Progress Note Date: 12/05/19 Principal diagnosis: Persistent bacteremia due to MRSA with positive second blood culture as well Right lower lobe developing pneumonia Acute COPD exacerbation Tracheobronchitis Gram-positive bacteremia cluster source not clear Severe degree of degenerative joint disease of spine, Right lower extremity pain Chronic renal failure stage V on hemodialysis 12/05/2019, patient seen and evaluated examined labs reviewed medications reviewed patient has persistent bacteremia. 4 and blood culture has been positive for MRSA indicating likely intravascular either a dialysis catheter or endocarditis likely however thoracic spine issue on discitis still cannot be excluded diuresis cardiovascular services are following 12/04/2019, patient seen and evaluated examined during the rounds labs reviewed medications reviewed care plan discussed with patient, echocardiogram shows ejection fraction of 55% with some basal ocean abnormalities no valvular dysfunction has been noted, awaiting WBC scan, patient has been room air breathing comfortably 12/03/2019, labs reviewed medications reviewed respiratory status able, patient renal functions have slightly improved with dialysis, on room air his oxygen saturation 92%, respiratory status continued to improve, ID services following 12/02/2019, patient seen eval reexamined during the rounds labs reviewed medications reviewed care plan discussed, patient's respiratory standpoint has been very good however her cultures remain positive for MRSA, ID services following no looking for the source of infection 12/01/2019, patient seen eval reexamined during the rounds labs reviewed medications reviewed shortness of breath and cough has been improved significantly patient has some pain in the spine with radiation to right leg, patient has been evaluated by infectious disease services and MRI of the thoracic spine has been ordered, to rule out discitis, white cell count is normal, patient is being followed by renal services for hemodialysis, This is a 59-year-old male with prior medical history of chronic renal failure on hemodialysis patient came into the hospital with for 5 day history of progressive back pain and neck pain, he was noted to be tachypneic as well as febrile up to 101 chest x-ray shows developing right lower lobe infiltrate the blood cultures are positive for gram-positive cocci in clusters patient likely is having sepsis due to gram-positive cocci source however is not clear with a component of COPD exacerbation as well and possibly right-sided pneumonia, patient's has significant history of congestive heart failure COPD dyslipidemia hypertension hypertensive cardiovascular disease and 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, CT of lumbar spine shows DJD and Doppler study results are pending, besides having leg pain no other numbness or weakness are present she does have ongoing shortness of breath intermittent cough just mostly nonproductive Objective - Vital Signs Vital signs: Vital Signs Temp 97.7 F 12/05/19 12:00 Pulse 63 12/05/19 12:00 Resp 16 12/05/19 12:00 BP 141/85 12/05/19 12:00 Pulse Ox 96 12/05/19 12:00 Intake & Output 12/04/19 12/05/19 12/05/19 18:59 06:59 18:59 Intake Total 360 480 240 Balance 360 480 240 Weight 81 kg 81 kg Intake: Oral 360 480 240 Other: # Voids 0 - Exam - Constitutional General appearance: average body habitus, disheveled - EENT Eyes: PERRLA Ears: bilateral: normal - Neck Neck: normal ROM Carotids: bilateral: upstroke normal Thyroid: bilateral: normal size - Respiratory Respiratory: bilateral: diminished - Cardiovascular Rhythm: regular Heart sounds: normal: S1, S2 - Gastrointestinal General gastrointestinal: normal bowel sounds, soft - Integumentary Integumentary: decreased turgor - Neurologic Neurologic: CNII-XII intact - Musculoskeletal Musculoskeletal: generalized weakness, strength equal bilaterally - Psychiatric Psychiatric: A&O x's 3, appropriate affect - Labs CBC & Chem 7: 12/01/19 05:43 12/05/19 06:36 Labs: Abnormal Lab Results - Last 24 Hours (Table) 12/04/19 12/04/19 12/05/19 Range/Units 16:43 20:35 06:22 Creatinine (0.66-1.25) mg/dL POC Glucose (mg/dL) 145 H 131 H 150 H (75-99) mg/dL 12/05/19 12/05/19 Range/Units 06:36 12:16 Creatinine 6.31 H (0.66-1.25) mg/dL POC Glucose (mg/dL) 142 H (75-99) mg/dL Microbiology - Last 24 Hours (Table) 12/04/19 06:02 Blood Culture Gram Stain - Preliminary Blood 12/04/19 06:02 Blood Culture - Final Blood 12/03/19 07:20 Blood Culture Gram Stain - Preliminary Blood Blood Culture - Preliminary Presumptive MRSA 12/02/19 05:35 Blood Culture Gram Stain - Final Blood Blood Culture - Final Methicillin resist S. aureus Assessment and Plan Assessment: Right lower lobe developing pneumonia Acute COPD exacerbation Tracheobronchitis MRSA bacteremia cluster source not clear May be related to line or endocarditis further recommendation per ID service Severe degree of degenerative joint disease of spine Right lower extremity pain Chronic renal failure stage V on hemodialysis Plan: Agree with continuation of vancomycin Repeat blood cultures results reviewed Appreciated infectious disease evaluation Continue breathing treatments, steroids Hemodialysis as planned Deep breathing exercise incentive spirometry Further plan of care as per clinical response of the patient Time with Patient: Greater than 30
[2019-12-05 17:16] LABS: Glucose,Whole Blood 160 mg/dL (75-99)
[2019-12-05] MEDS: IOPAMIDOL CONTRAST (ORAL USE) VIAL PO PRN ×2 (17:56→18:50)
--- NOTE | 2019-12-05 18:19 | PN ---
PROGRESS NOTE DATE OF SERVICE: 12/05/2019 REASON FOR FOLLOWUP VISIT: MRSA bacteremia. INTERVAL HISTORY: The patient is currently afebrile. Patient is breathing comfortably. Denies having any chest pain. No shortness of breath or cough. No abdominal pain. Back pain has improved as well and no other symptoms. PHYSICAL EXAMINATION: Blood pressure 140/85 with a pulse of 63, temp 97.7. He is 96% on room air. General description is a middle-aged male lying in bed in no distress. Respiratory system: Unlabored breathing, clear to auscultation anteriorly. Heart S1, S2. Regular rate and rhythm. Abdomen soft, no tenderness. LABS: Creatinine 6.31. Blood culture from yesterday are positive as well. DIAGNOSTIC IMPRESSION AND PLAN: Patient with respiratory MRSA bacteremia. Concern is for likely deep source or endovascular source. Will request for RICO. Will switch antibiotic to daptomycin at 8 mg/kg q48 in view of persistent bacteremia despite being on vancomycin and monitor clinical course closely. Continue supportive care. MMODL / IJN: [id number] /
--- NOTE | 2019-12-05 19:04 | PN ---
PROGRESS NOTE DATE OF SERVICE: 12/05/2019 This 59-year-old gentleman was admitted pneumoniae sepsis had the blood culture positive for presumptive MRSA on multiple occasions. The most recent positive result was on December 02. The patient underwent a nuclear medicine scan showed normal white count scan otherwise. Thoracic 2D echocardiogram showed evidence of ejection fraction 50-55 percent and minimal valvular abnormalities. Pulmonary and as well as Infectious Disease following the patient closely. Concerns likely focus of endovascular infection is being considered by Dr. Beasley and RICO is also being requested. Vancomycin is being continued. PAST MEDICAL HISTORY: Reviewed. REVIEW OF SYSTEMS: CARDIOVASCULAR SYSTEM: No angina. RESPIRATIONS as mentioned earlier. GI: As mentioned earlier. : No dysuria. CENTRAL NERVOUS SYSTEM: No numbness or weakness. CURRENT MEDICATIONS: Reviewed and include: 1. Tylenol 650 q.6h p.r.n. 2. [place] 5 mg q8. 3. Maalox. 4. Ventolin. 5. DuoNeb q.i.d. and p.r.n. 6. Zyloprim. 7. Xanax. 8. Aspirin. 9. Lipitor. 10.BuSpar. 11.Tums. 12.Coreg. 13.Celexa. 14.Lovenox. 15.Cephulac. 16.Synthroid. 17.Magnesium oxide. 18.Melatonin. 19.Solu-Medrol 20 IV q.8h. 20.Narcan. 21.Habitrol 14. 22.Zofran. 23.Protonix. 24.Renvela. PHYSICAL EXAM: Patient is alert, oriented times three. Pulse is 60. Blood pressure 141/80, respirations 16, temperature 97.7, pulse ox 98% on room air. HEENT: Conjunctivae normal. NECK: No JVD. CARDIOVASCULAR: S1, S2 muffled. RESPIRATIONS: Breath sounds diminished in the bases. A few scattered rhonchi and crackles. ABDOMEN: Soft, nontender. LEGS are no edema. No swelling. CENTRAL NERVOUS SYSTEM: No focal deficits. LABS: At this time shows creatinine 6.31 and glucose is 140-150. Other labs are noted. The recent chest x-ray which was reviewed by me showed increased bronchovascular markings. ASSESSMENT: 1. MRSA sepsis present with persistent bacteremia with undetermined origin, unknown etiology. 2. Possible pneumonia, sepsis, present on admission. 3. History of chronic obstructive pulmonary disease, acute exacerbation. 4. History of chronic nicotine dependence. 5. Lumbar degenerative joint disease with possible sciatica. 6. History of coronary artery disease. 7. History of congestive heart failure, ejection fraction unknown. 8. History of gastroesophageal reflux disease. 9. Hyperlipidemia. 10.Hypertension. 11.End-stage kidney disease on hemodialysis Saturday, Saturday, Saturday. 12.Hypothyroidism. RECOMMENDATIONS AND DISCUSSION: Recommend to continue current medications, symptomatic treatment. Otherwise at this time I would recommend to continue the medications. Lumbar spine MRI has been done on November 30 which showed disc bulging and loss of height. Otherwise, no other abnormality. Continue the antibiotics. I would recommend repeat labs and continue to monitor with multiple consultants. RICO. I would also recommend a CT scan of the chest, abdomen, pelvis, and to complete the workup as well. Once again, the prognosis guarded and most recent blood cultures also will be arranged. Further recommendations to follow. DENNIS / DARREL: [id number] / ABHINAV
[2019-12-05 20:22] LABS: Glucose,Whole Blood 141 mg/dL (75-99)
--- NOTE | 2019-12-05 20:55 | CT ---
EXAMINATION TYPE: CT ChestAbdPelvis wo con DATE OF EXAM: 12/05/2019 COMPARISON: CT of the thoracic and lumbar spine dated 11/30/2019 HISTORY: MRSA SEPSIS CT DLP: 910.1 mGycm. Automated Exposure Control for Dose Reduction was Utilized. TECHNIQUE: CT scan of the thorax, abdomen and pelvis is performed without IV contrast. FINDINGS: As of intravenous and oral contrast limit evaluation of both the hollow and solid viscera. LUNGS: Patchy groundglass opacity is seen within the left peripheral midlung. There is left hemidiaph ragm elevation and lingular atelectasis. Linear consolidation at the right lung base. Endobronchial d ebris is seen within the right mainstem bronchus and endobronchial lesion is seen in the right lower lobe bronchus. This measures 4 mm. Trace right pleural effusion. MEDIASTINUM: There are no greater than 1 cm hilar or mediastinal lymph nodes. No pericardial effusi on is seen. Extensive atherosclerosis of the thoracic aorta. Main pulmonary artery measures 3.2 cm s uggestive of pulmonary artery hypertension. Severe atherosclerosis of the coronary arteries versus mo re likely coronary artery stents. Heart is mildly enlarged with trace pericardial effusion. OTHER: At least moderate bilateral probable retroareolar symmetric gynecomastia. LIVER/GB: Unremarkable unenhanced morphology. PANCREAS: Pancreatic parenchymal atrophy and a small probable splenule adjacent to the pancreatic geovanni l. SPLEEN: There is a small splenule at the splenic hilum. Spleen is nonenlarged. ADRENALS: Slight thickening of the bilateral adrenal glands likely relates to adrenal gland hyperplas ia. KIDNEYS: There are bilateral hypoattenuated renal lesions that are suboptimally evaluated without con trast. Renal ultrasound could be considered if contrast cannot be given. No hydronephrosis or nephrol ithiasis. Renal arterial calcification seen. BOWEL: The stomach is distended and air and fluid-filled. Small bowel is nondilated. Anterior dilates the colon up to 7.0 cm. LYMPH NODES: No greater than 1cm abdominal or pelvic lymph nodes are appreciated. OSSEOUS STRUCTURES: There is a nonspecific sclerotic focus of the right iliac bone on image 110. This is subcentimeter. Another sclerotic focus of the left iliac bone on image 115 moderate multilevel de generative change of the spine. OTHER: Strand-like density around the descending thoracic aorta begins on image 59 extends to image 7 0 with poorly defined aortic contour. This is suboptimally evaluated without contrast. This is simila r in appearance to the prior. Small amount of free fluid in the pelvis is abnormal for a male. IMPRESSION: 1. Small right basilar linear consolidation with trace adjacent pleural effusion could represent pneu monia with parapneumonic effusion. Additionally there is debris within the right mainstem bronchus an d a possible polyp of the right lower lobe bronchus. Bronchoscopy is recommended. 2. Extensive atherosclerosis of the aorta. There is periaortic density of the descending thoracic aor ta that is indeterminate and poorly defined without contrast. Aortitis could be considered. CT with c ontrast could ensure no vascular injury. 3. Dilated air-filled colon is seen without focal area of obstruction. Ileus is suspected. 4. Small amount of fluid in the dependent pelvis, abnormal finding in a male. 5. Multiple bilateral renal lesions. These are incompletely evaluated without contrast. Renal ultraso und could be performed for further evaluation if contrast cannot be given. A [place] level critical message alert has been initiated for Giuliana Bolton MD via the [facility] Critical Results System on 12/05/2019 8:52 PM. This message alert has been sent to Giuliana Bolton MD via the preferences provided by the clinician for the receipt of Radiology Critical Findings. Message ID [id number]. Impressions #1 and #[address] Arroyo.
[2019-12-06 06:08] LABS: Glucose,Whole Blood 138 mg/dL (75-99)
[2019-12-06] MEDS: INSULIN ASPART (NovoLOG) 100 UNIT/ML VIAL SQ SCH ×4 (06:48→20:28)
[2019-12-06] MEDS: PANTOPRAZOLE 40 MG TABLET PO SCH ×2 (06:48→16:59)
[2019-12-06] MEDS: LEVOTHYROXINE 75 MCG TAB PO SCH (06:48)
[2019-12-06] MEDS: CARVEDILOL 12.5 MG TAB PO SCH ×2 (06:48→16:58)
[2019-12-06] MEDS: SEVELAMER 800 MG TAB PO SCH ×3 (06:48→16:58)
[2019-12-06] MEDS: HYDROcodone/APAP 5-325MG 1 EACH TAB PO PRN ×2 (06:54→17:03)
[2019-12-06] MEDS: AURYXIA PO SCH ×3 (06:57→23:55)
[2019-12-06 07:22] LABS: Basophils % (A) 0 %; Eosinophils # (A) 0.1 k/uL (0-0.7); Eosinophils % (A) 1 %; HCT 30.1 % (39.0-53.0); HGB 9.6 gm/dL (13.0-17.5); Lymphocytes # (A) 0.5 k/uL (1.0-4.8); Lymphocytes % (A) 5 %; MCH 32.5 pg (25.0-35.0); MCHC 31.9 g/dL (31.0-37.0); MCV 101.9 fL (80.0-100.0); Macrocytosis Slight; Mean Platelet Volume 7.7; Monocytes # (A) 0.3 k/uL (0-1.0); Monocytes % (A) 3 %; Neutrophils # (A) 9.9 k/uL (1.3-7.7); Neutrophils % (A) 92 %; Platelet Count 270 k/uL (150-450); RBC 2.95 m/uL (4.30-5.90); RDW 13.4 % (11.5-15.5); WBC 10.8 k/uL (3.8-10.6)
[2019-12-06 07:30] LABS: Calcium 9.3 mg/dL (8.4-10.2); Potassium 4.9 mmol/L (3.5-5.1)
[2019-12-06] MEDS: IPRATROPIUM-ALBUTEROL 3 ML NEB INHALATION SCH ×4 (08:24→19:27)
--- NOTE | 2019-12-06 08:45 | P.PN ---
Subjective Patient being worked up for fever of unclear etiology Yesterday his 2-D echo did not show any obvious mass or thrombus He does have staph bacteremia WBC count 10.8 Hemoglobin 9.6 Sodium 128 potassium 4.9 Pulse rate in the 50s afebrile 97.6 Blood pressure 148/82, 162/78 93-94% on room air CT of the chest and abdomen was reviewed. This is a noncontrast study Small pericardial effusion noted Debris in the right mainstem bronchus possible polyp Extensive atherosclerosis of the aorta with a periaortic density in the descending aorta but this is poorly defined Fluid in the dependent pelvis which is abnormal Multiple bilateral renal lesions At this point we have not seen any vegetation in the heart on 2-D echo I would pursue CT of the chest and abdomen and pelvis with contrast to assess the wall of the descending aorta Aortitis should be considered The linear lesions need to be evaluated for the could also be the cause of fever of unknown origin especially in RCC Patient was interviewed. His back pain is lumbar sacral related it is not thoracic line he has no pleuritic chest discomfort He says he feels a lot better now He has only a mild cough Heart sounds are normal, possible systolic murmur Breath sounds occasional wheezing but no rhonchi no crackles Abdomen is soft Objective - Vital Signs Vital signs: Vital Signs Temp 97.6 F 12/06/19 07:57 Pulse 61 12/06/19 07:57 Resp 16 12/06/19 07:57 BP 148/82 12/06/19 07:57 Pulse Ox 93 L 12/06/19 07:57 Intake & Output 12/05/19 12/06/19 12/06/19 18:59 06:59 18:59 Intake Total 590 Balance 590 Weight 81 kg 81.2 kg Intake: Oral 590 Other: # Voids 0 - Labs CBC & Chem 7: 12/06/19 06:49 12/06/19 06:49 Labs: Abnormal Lab Results - Last 24 Hours (Table) 12/05/19 12/05/19 12/05/19 Range/Units 12:16 17:15 20:22 WBC (3.8-10.6) k/uL RBC (4.30-5.90) m/uL Hgb (13.0-17.5) gm/dL Hct (39.0-53.0) % MCV (80.0-100.0) fL Neutrophils # (1.3-7.7) k/uL Lymphocytes # (1.0-4.8) k/uL Sodium (137-145) mmol/L Chloride (98-107) mmol/L BUN (9-20) mg/dL Creatinine (0.66-1.25) mg/dL Glucose (74-99) mg/dL POC Glucose (mg/dL) 142 H 160 H 141 H (75-99) mg/dL 12/06/19 12/06/19 12/06/19 Range/Units 06:07 06:49 06:49 WBC 10.8 H (3.8-10.6) k/uL RBC 2.95 L (4.30-5.90) m/uL Hgb 9.6 L (13.0-17.5) gm/dL Hct 30.1 L (39.0-53.0) % MCV 101.9 H (80.0-100.0) fL Neutrophils # 9.9 H (1.3-7.7) k/uL Lymphocytes # 0.5 L (1.0-4.8) k/uL Sodium 128 L (137-145) mmol/L Chloride 91 L (98-107) mmol/L BUN 95 H (9-20) mg/dL Creatinine 7.96 H* (0.66-1.25) mg/dL Glucose 141 H (74-99) mg/dL POC Glucose (mg/dL) 138 H (75-99) mg/dL Microbiology - Last 24 Hours (Table) 12/05/19 06:36 Blood Culture Gram Stain - Preliminary Blood 12/05/19 06:36 Blood Culture - Final Blood 12/04/19 06:02 Blood Culture Gram Stain - Preliminary Blood Blood Culture - Preliminary Presumptive MRSA 12/03/19 07:20 Blood Culture Gram Stain - Final Blood Blood Culture - Final Methicillin resist S. aureus
[2019-12-06] MEDS: NICOTINE 21MG/24HR PATCH TRANSDERM SCH (09:38)
[2019-12-06] MEDS: methylPREDNISolone SOD SUCCI 40 MG/ML 1 ML VIAL IV SCH ×3 (09:38→23:31)
[2019-12-06] MEDS: MAGNESIUM OXIDE 400 MG TAB PO SCH (09:39)
[2019-12-06] MEDS: ALLOPURINOL 100 MG TAB PO SCH (09:39)
[2019-12-06] MEDS: ASPIRIN 81 MG PO SCH (09:39)
[2019-12-06] MEDS: CITALOPRAM HYDROBROMIDE 20 MG TAB PO SCH (09:39)
[2019-12-06] MEDS: ENOXAPARIN 30 MG/0.3 ML SYRINGE SQ SCH (09:39)
[2019-12-06] MEDS: amLODIPine 2.5 MG TAB PO SCH (09:39)
[2019-12-06] MEDS: busPIRone HCl 10 MG TAB PO SCH ×2 (09:39→20:28)
[2019-12-06 11:26] LABS: Glucose,Whole Blood 139 mg/dL (75-99)
--- NOTE | 2019-12-06 12:58 | P.PN ---
Subjective Patient is seen in follow-up for end-stage renal disease. He is maintained on hemodialysis on Saturday schedule. He has a right upper extremity AV fistula. Patient is on IV antibiotics for MRSA bacteremia. Patient denies any complaints. No changes overnight. Vital signs are stable. General: The patient appeared well nourished and normally developed. HEENT: Head exam is unremarkable. Neck is without jugular venous distension. LUNGS: Lungs are clear to auscultation and percussion. Breath sounds decreased. HEART: Rate and Rhythm are regular. ABDOMEN: Abdominal exam reveals normal bowel sounds. Non-tender and non-distended. EXTREMITITES: No clubbing, cyanosis, or edema. Objective - Vital Signs Vital signs: Vital Signs Temp 97.5 F L 12/06/19 12:00 Pulse 61 12/06/19 12:00 Resp 16 12/06/19 12:00 BP 145/80 12/06/19 12:00 Pulse Ox 95 12/06/19 12:00 Intake & Output 12/05/19 12/06/19 12/06/19 18:59 06:59 18:59 Intake Total 590 Balance 590 Weight 81 kg 81.2 kg Intake: Oral 590 Other: # Voids 0 - Labs CBC & Chem 7: 12/06/19 06:49 12/06/19 06:49 Labs: Abnormal Lab Results - Last 24 Hours (Table) 12/05/19 12/05/19 12/06/19 Range/Units 17:15 20:22 06:07 WBC (3.8-10.6) k/uL RBC (4.30-5.90) m/uL Hgb (13.0-17.5) gm/dL Hct (39.0-53.0) % MCV (80.0-100.0) fL Neutrophils # (1.3-7.7) k/uL Lymphocytes # (1.0-4.8) k/uL Sodium (137-145) mmol/L Chloride (98-107) mmol/L BUN (9-20) mg/dL Creatinine (0.66-1.25) mg/dL Glucose (74-99) mg/dL POC Glucose (mg/dL) 160 H 141 H 138 H (75-99) mg/dL 12/06/19 12/06/19 12/06/19 Range/Units 06:49 06:49 11:23 WBC 10.8 H (3.8-10.6) k/uL RBC 2.95 L (4.30-5.90) m/uL Hgb 9.6 L (13.0-17.5) gm/dL Hct 30.1 L (39.0-53.0) % MCV 101.9 H (80.0-100.0) fL Neutrophils # 9.9 H (1.3-7.7) k/uL Lymphocytes # 0.5 L (1.0-4.8) k/uL Sodium 128 L (137-145) mmol/L Chloride 91 L (98-107) mmol/L BUN 95 H (9-20) mg/dL Creatinine 7.96 H* (0.66-1.25) mg/dL Glucose 141 H (74-99) mg/dL POC Glucose (mg/dL) 139 H (75-99) mg/dL Microbiology - Last 24 Hours (Table) 12/05/19 06:36 Blood Culture Gram Stain - Preliminary Blood 12/05/19 06:36 Blood Culture - Final Blood 12/04/19 06:02 Blood Culture Gram Stain - Preliminary Blood Blood Culture - Preliminary Presumptive MRSA 12/03/19 07:20 Blood Culture Gram Stain - Final Blood Blood Culture - Final Methicillin resist S. aureus Assessment and Plan Plan: Assessment: 1. End-stage renal disease maintained on hemodialysis on Saturday schedule via right upper extremity AV fistula. 2. Persistent MRSA bacteremia. Unclear source. Maintained on IV antibiotics. WBC scan negative. ?aortitis. 3. Hypertension with chronic kidney disease. Controlled. 4. Chronic kidney disease mineral bone disease maintained on Renvela. 5. Hyponatremia secondary to chronic kidney disease. 6. Anemia of chronic kidney disease. Plan: Hemodialysis on Saturday. Target vancomycin level less than 20. RICO pending. Cleared for CAT scan of the abdomen with IV contrast if needed. Add Aranesp.
[2019-12-06] MEDS ORDERED: DARBEPOETIN ALFA 40 MCG/0.4 ML SYRINGE SQ SCH (13:00)
[2019-12-06 16:47] LABS: Glucose,Whole Blood 137 mg/dL (75-99)
--- NOTE | 2019-12-06 20:18 | P.PN ---
Subjective Progress Note Date: 12/06/19 Principal diagnosis: Persistent bacteremia due to MRSA with positive second blood culture as well Right lower lobe developing pneumonia Acute COPD exacerbation Tracheobronchitis Gram-positive bacteremia cluster source not clear Severe degree of degenerative joint disease of spine, Right lower extremity pain Chronic renal failure stage V on hemodialysis 12/06/2019, patient seen eval examined during the rounds labs reviewed medications reviewed, PT scan of the chest abdominal and pelvis findings have been noted likely associated with mucus plugging, however endobronchial mass cannot be excluded, patient will need bronchoscopy will schedule for 12/08/2019Saturday12/05/2019, patient seen and evaluated examined labs reviewed medications reviewed patient has persistent bacteremia. 4 and blood culture has been positive for MRSA indicating likely intravascular either a dialysis catheter or endocarditis likely however thoracic spine issue on discitis still cannot be excluded diuresis cardiovascular services are following 12/04/2019, patient seen and evaluated examined during the rounds labs reviewed medications reviewed care plan discussed with patient, echocardiogram shows ejection fraction of 55% with some basal ocean abnormalities no valvular dysfunction has been noted, awaiting WBC scan, patient has been room air breathing comfortably 12/03/2019, labs reviewed medications reviewed respiratory status able, patient renal functions have slightly improved with dialysis, on room air his oxygen saturation 92%, respiratory status continued to improve, ID services following 12/02/2019, patient seen eval reexamined during the rounds labs reviewed medic ations reviewed care plan discussed, patient's respiratory standpoint has been very good however her cultures remain positive for MRSA, ID services following no looking for the source of infection 12/01/2019, patient seen eval reexamined during the rounds labs reviewed medications reviewed shortness of breath and cough has been improved significantly patient has some pain in the spine with radiation to right leg, patient has been evaluated by infectious disease services and MRI of the thoracic spine has been ordered, to rule out discitis, white cell count is normal, patient is being followed by renal services for hemodialysis, This is a 59-year-old male with prior medical history of chronic renal failure on hemodialysis patient came into the hospital with for 5 day history of progressive back pain and neck pain, he was noted to be tachypneic as well as febrile up to 101 chest x-ray shows developing right lower lobe infiltrate the blood cultures are positive for gram-positive cocci in clusters patient likely is having sepsis due to gram-positive cocci source however is not clear with a component of COPD exacerbation as well and possibly right-sided pneumonia, patient's has significant history of congestive heart failure COPD dyslipidemia hypertension hypertensive cardiovascular disease and 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, CT of lumbar spine shows DJD and Doppler study results are pending, besides having leg pain no other numbness or weakness are present she does have ongoing shortness of breath intermittent cough just mostly nonproductive Objective - Vital Signs Vital signs: Vital Signs Temp 97.5 F L 12/06/19 16:00 Pulse 70 12/06/19 19:41 Resp 16 12/06/19 16:00 BP 147/80 12/06/19 16:00 Pulse Ox 94 L 12/06/19 19:27 Intake & Output 12/06/19 12/06/19 12/07/19 06:59 18:59 06:59 Intake Total 540 Balance 540 Weight 81.2 kg Intake: Oral 540 Other: # Voids 0 0 - Exam - Constitutional General appearance: average body habitus, disheveled - EENT Eyes: PERRLA Ears: bilateral: normal - Neck Neck: normal ROM Carotids: bilateral: upstroke normal Thyroid: bilateral: normal size - Respiratory Respiratory: bilateral: diminished - Cardiovascular Rhythm: regular Heart sounds: normal: S1, S2 - Gastrointestinal General gastrointestinal: normal bowel sounds, soft - Integumentary Integumentary: decreased turgor - Neurologic Neurologic: CNII-XII intact - Musculoskeletal Musculoskeletal: generalized weakness, strength equal bilaterally - Psychiatric Psychiatric: A&O x's 3, appropriate affect - Labs CBC & Chem 7: 12/06/19 06:49 12/06/19 06:49 Labs: Abnormal Lab Results - Last 24 Hours (Table) 12/05/19 12/06/19 12/06/19 Range/Units 20:22 06:07 06:49 WBC (3.8-10.6) k/uL RBC (4.30-5.90) m/uL Hgb (13.0-17.5) gm/dL Hct (39.0-53.0) % MCV (80.0-100.0) fL Neutrophils # (1.3-7.7) k/uL Lymphocytes # (1.0-4.8) k/uL Sodium 128 L (137-145) mmol/L Chloride 91 L (98-107) mmol/L BUN 95 H (9-20) mg/dL Creatinine 7.96 H* (0.66-1.25) mg/dL Glucose 141 H (74-99) mg/dL POC Glucose (mg/dL) 141 H 138 H (75-99) mg/dL 12/06/19 12/06/19 12/06/19 Range/Units 06:49 11:23 16:45 WBC 10.8 H (3.8-10.6) k/uL RBC 2.95 L (4.30-5.90) m/uL Hgb 9.6 L (13.0-17.5) gm/dL Hct 30.1 L (39.0-53.0) % MCV 101.9 H (80.0-100.0) fL Neutrophils # 9.9 H (1.3-7.7) k/uL Lymphocytes # 0.5 L (1.0-4.8) k/uL Sodium (137-145) mmol/L Chloride (98-107) mmol/L BUN (9-20) mg/dL Creatinine (0.66-1.25) mg/dL Glucose (74-99) mg/dL POC Glucose (mg/dL) 139 H 137 H (75-99) mg/dL Microbiology - Last 24 Hours (Table) 12/05/19 06:36 Blood Culture Gram Stain - Preliminary Blood Blood Culture - Preliminary Staphylococcus aureus 12/05/19 06:36 Blood Culture - Final Blood 12/04/19 06:02 Blood Culture Gram Stain - Preliminary Blood Blood Culture - Preliminary Presumptive MRSA 12/03/19 07:20 Blood Culture Gram Stain - Final Blood Blood Culture - Final Methicillin resist S. aureus Assessment and Plan Assessment: Endobronchial mass/mucous plug Right lower lobe developing pneumonia Acute COPD exacerbation Tracheobronchitis MRSA bacteremia cluster source not clear May be related to line or endocarditis further recommendation per ID service Severe degree of degenerative joint disease of spine Right lower extremity pain Chronic renal failure stage V on hemodialysis Plan: We will schedule bronchoscopy for December 06 with possible biopsy Agree with continuation of vancomycin Repeat blood cultures results reviewed Appreciated infectious disease evaluation Continue breathing treatments, steroids Hemodialysis as planned Deep breathing exercise incentive spirometry Further plan of care as per clinical response of the patient Time with Patient: Greater than 30
[2019-12-06 20:20] LABS: Glucose,Whole Blood 157 mg/dL (75-99)
--- NOTE | 2019-12-06 20:35 | PN ---
PROGRESS NOTE DATE OF SERVICE: 12/06/2019 This 59-year-old gentleman who was admitted with multiple medical problems including renal failure also had significant MRSA sepsis which is persistent. As far as the cultures are concerned, the latest blood culture on December 04 is also positive. Cardiology has been consulted for possible RICO. The CT abdomen and pelvis showed some pneumonia with parapneumonic effusion. The possibility of polyp of the right mainstem bronchus was also noted with extensive atherosclerosis of the aorta. density of the descending thoracic aorta was also noted. Aortitis is a concern. Multiple bilateral renal mentioned lesions also noted. The patient being closely monitored at this time. PAST MEDICAL HISTORY: Reviewed. REVIEW OF SYSTEMS: CARDIOVASCULAR SYSTEM: No angina. RESPIRATION: No cough. GI mentioned earlier. no dysuria. NERVOUS SYSTEM: No numbness or weakness. CURRENT MEDICATIONS: Reviewed and include: 1. Tylenol p.r.n. 2. [place] 5 mg p.o. q.8 p.r.n. 3. Maalox. 4. DuoNeb q.i.d. and p.r.n. 5. Zyloprim. 6. Xanax. 7. Aspirin. 8. Coreg. 9. Celexa. 10.Daptomycin 650 mg q.48 hours. 12.Lovenox. 13.Cephulac. 14.Melatonin. 15.Solu-Medrol. 16.Narcan. 17.Protonix. 18.Renvela. PHYSICAL EXAM: Patient is alert, oriented times three. Pulse is 60. Blood pressure 147/80. Respirations 16, temperature 97.5, pulse ox 94% on room air. HEENT: Conjunctivae normal. NECK: No JVD. CARDIOVASCULAR: S1, S2 muffled. RESPIRATIONS: Breath sounds diminished in the bases. A few scattered rhonchi and crackles. ABDOMEN: Soft, nontender. LEGS are no edema, no swelling. NERVOUS SYSTEM: No focal deficits. LAB STUDIES: WBC 10.2, hemoglobin 9.6, sodium 128, potassium 4.9. Cultures are noted. ASSESSMENT: 1. Persistent MRSA sepsis with undetermined origin, unknown etiology. 2. Possible pneumonia, sepsis, present on admission. 3. Possible aortitis per CT scan. 4. Extensive atherosclerosis of the aorta in the CT scan. 5. Possible pneumonia with parapneumonic effusion. 6. Possible right lower lobe bronchus polyp. 7. History of chronic obstructive pulmonary disease acute exacerbation. 8. History of chronic nicotine dependence. 9. Acute renal failure. 10.End-stage renal disease on hemodialysis Saturday, Saturday, Saturday. 11.Lumbar degenerative joint disease with possible sciatica. 12.History of coronary artery disease. 13.History of congestive heart failure, ejection fraction unknown. 14.History of gastroesophageal reflux disease. 15.Hyperlipidemia. 16.Hypertension. 17.Hypothyroidism. 18.FULL CODE. RECOMMENDATIONS AND DISCUSSION: This 59-year-old gentleman who presented with multiple complex medical issues, at this time, I recommend to continue the current medications, symptomatic treatment. Continue with antibiotics, daptomycin, otherwise possible RICO. Aortitis also a concern. I would recommend further blood workup. Otherwise closely monitor with Infectious Disease and multiple consultants including Pulmonary, Dr. De Guzman. Prognosis guarded because of multiple complex medical issues and further recommendations to follow. See orders for details. MMODL / IJN: [id number] / MTDD
--- NOTE | 2019-12-06 21:56 | PN ---
PROGRESS NOTE DATE OF SERVICE: 12/06/2019 REASON FOR FOLLOWUP: MRSA bacteremia. INTERVAL HISTORY: The patient is currently afebrile. The patient is breathing comfortably. The patient denies having any chest pain. No shortness of breath or cough. No nausea. No abdominal pain. Back pain is currently improved. No diarrhea. PHYSICAL EXAMINATION: Blood pressure 147/80 with a pulse of 72, temperature is 97.5. He is 94% on room air. General description is a middle-aged male lying in bed in no distress. Respiratory system: Unlabored breathing, clear to auscultation anteriorly. Heart S1, S2. Regular rate and rhythm. Abdomen soft, no tenderness. LABS: Hemoglobin is 9.8, white count 10.8, creatinine 7.96. Blood culture 12/01 so far positive. DIAGNOSTIC IMPRESSION AND PLAN: Patient with persistent MRSA bacteremia with concern for endovascular source. Awaiting a RICO. Antibiotic was switched to daptomycin yesterday. Blood culture repeated daily to document clearance of bacteremia. We will add rifampin and monitor clinical course closely. MMODL / IJN: [id number] /
[2019-12-07] MEDS: HYDROcodone/APAP 5-325MG 1 EACH TAB PO PRN ×2 (04:13→17:32)
[2019-12-07 06:06] LABS: Glucose,Whole Blood 145 mg/dL (75-99)
[2019-12-07 06:28] LABS: Basophils % (A) 0 %; Eosinophils % (A) 0 %; HCT 28.9 % (39.0-53.0); HGB 9.2 gm/dL (13.0-17.5); Lymphocytes # (A) 0.4 k/uL (1.0-4.8); Lymphocytes % (A) 3 %; MCHC 31.7 g/dL (31.0-37.0); MCV 100.7 fL (80.0-100.0); Mean Platelet Volume 7.5; Monocytes # (A) 0.3 k/uL (0-1.0); Monocytes % (A) 3 %; Neutrophils # (A) 10.2 k/uL (1.3-7.7); Neutrophils % (A) 94 %; Platelet Count 328 k/uL (150-450); RBC 2.87 m/uL (4.30-5.90); RDW 13.4 % (11.5-15.5); WBC 10.9 k/uL (3.8-10.6)
[2019-12-07] MEDS: INSULIN ASPART (NovoLOG) 100 UNIT/ML VIAL SQ SCH ×4 (06:33→21:18)
[2019-12-07] MEDS: SEVELAMER 800 MG TAB PO SCH ×3 (06:34→17:05)
[2019-12-07] MEDS: PANTOPRAZOLE 40 MG TABLET PO SCH ×2 (06:34→17:05)
[2019-12-07] MEDS: CARVEDILOL 12.5 MG TAB PO SCH ×2 (06:34→17:05)
[2019-12-07] MEDS: LEVOTHYROXINE 75 MCG TAB PO SCH (06:34)
[2019-12-07] MEDS: ACETAMINOPHEN TAB 325 MG TAB PO PRN ×3 (06:40→21:20)
[2019-12-07 06:41] LABS: Calcium 9.5 mg/dL (8.4-10.2); Potassium 5.9 mmol/L (3.5-5.1)
[2019-12-07] MEDS: AURYXIA PO SCH ×3 (06:43→17:07)
[2019-12-07] MEDS: IPRATROPIUM-ALBUTEROL 3 ML NEB INHALATION SCH ×4 (07:38→20:05)
[2019-12-07] MEDS: MAGNESIUM OXIDE 400 MG TAB PO SCH (08:55)
[2019-12-07] MEDS: CITALOPRAM HYDROBROMIDE 20 MG TAB PO SCH (08:55)
[2019-12-07] MEDS: busPIRone HCl 10 MG TAB PO SCH ×2 (08:55→21:18)
[2019-12-07] MEDS: ENOXAPARIN 30 MG/0.3 ML SYRINGE SQ SCH (08:55)
[2019-12-07] MEDS: methylPREDNISolone SOD SUCCI 40 MG/ML 1 ML VIAL IV SCH ×3 (08:55→23:35)
[2019-12-07] MEDS: NICOTINE 21MG/24HR PATCH TRANSDERM SCH (08:55)
[2019-12-07] MEDS: amLODIPine 2.5 MG TAB PO SCH (08:55)
[2019-12-07] MEDS: ALLOPURINOL 100 MG TAB PO SCH (08:55)
[2019-12-07] MEDS: ASPIRIN 81 MG PO SCH (08:55)
[2019-12-07 11:39] LABS: Glucose,Whole Blood 156 mg/dL (75-99)
--- NOTE | 2019-12-07 12:40 | P.PN ---
Subjective Patient is seen in follow-up for end-stage renal disease. He is maintained on hemodialysis on Saturday schedule. He has a right upper extremity AV fistula. Patient is on IV antibiotics for MRSA bacteremia. Patient denies any complaints. No changes overnight. Currently having lunch. Vital signs are stable. General: The patient appeared well nourished and normally developed. HEENT: Head exam is unremarkable. Neck is without jugular venous distension. LUNGS: Lungs are clear to auscultation and percussion. Breath sounds decreased. HEART: Rate and Rhythm are regular. ABDOMEN: Abdominal exam reveals normal bowel sounds. Non-tender and non- distended. EXTREMITITES: No clubbing, cyanosis, or edema. Objective - Vital Signs Vital signs: Vital Signs Temp 97.7 F 12/07/19 09:00 Pulse 60 12/07/19 11:40 Resp 16 12/07/19 11:40 BP 114/82 12/07/19 11:40 Pulse Ox 91 L 12/07/19 11:40 Intake & Output 12/06/19 12/07/19 12/07/19 18:59 06:59 18:59 Intake Total 540 480 240 Balance 540 480 240 Weight 82.6 kg Intake: Oral 540 480 240 Other: # Voids 0 0 1 - Labs CBC & Chem 7: 12/07/19 05:46 12/07/19 05:46 Labs: Abnormal Lab Results - Last 24 Hours (Table) 12/06/19 12/06/19 12/07/19 Range/Units 16:45 20:19 05:46 WBC (3.8-10.6) k/uL RBC (4.30-5.90) m/uL Hgb (13.0-17.5) gm/dL Hct (39.0-53.0) % MCV (80.0-100.0) fL Neutrophils # (1.3-7.7) k/uL Lymphocytes # (1.0-4.8) k/uL Sodium 126 L (137-145) mmol/L Potassium 5.9 H (3.5-5.1) mmol/L Chloride 89 L (98-107) mmol/L Carbon Dioxide 21 L (22-30) mmol/L BUN 118 H* (9-20) mg/dL Creatinine 9.00 H* (0.66-1.25) mg/dL Glucose 133 H (74-99) mg/dL POC Glucose (mg/dL) 137 H 157 H (75-99) mg/dL 12/07/19 12/07/19 12/07/19 Range/Units 05:46 06:04 11:33 WBC 10.9 H (3.8-10.6) k/uL RBC 2.87 L (4.30-5.90) m/uL Hgb 9.2 L (13.0-17.5) gm/dL Hct 28.9 L (39.0-53.0) % MCV 100.7 H (80.0-100.0) fL Neutrophils # 10.2 H (1.3-7.7) k/uL Lymphocytes # 0.4 L (1.0-4.8) k/uL Sodium (137-145) mmol/L Potassium (3.5-5.1) mmol/L Chloride (98-107) mmol/L Carbon Dioxide (22-30) mmol/L BUN (9-20) mg/dL Creatinine (0.66-1.25) mg/dL Glucose (74-99) mg/dL POC Glucose (mg/dL) 145 H 156 H (75-99) mg/dL Microbiology - Last 24 Hours (Table) 12/06/19 06:49 Blood Culture - Preliminary Blood No Growth after 24 hours 12/05/19 06:36 Blood Culture Gram Stain - Preliminary Blood Blood Culture - Preliminary Presumptive MRSA 12/04/19 06:02 Blood Culture Gram Stain - Final Blood Blood Culture - Final Methicillin resist S. aureus Assessment and Plan Plan: Assessment: 1. End-stage renal disease maintained on hemodialysis on Saturday schedule via right upper extremity AV fistula. 2. Persistent MRSA bacteremia. Unclear source. Maintained on IV antibiotics. WBC scan negative. ?aortitis. 3. Hypertension with chronic kidney disease. Controlled. 4. Chronic kidney disease mineral bone disease maintained on Renvela. 5. Hyponatremia secondary to chronic kidney disease. 6. Anemia of chronic kidney disease. Maintained on Aranesp. 7. Hyperkalemia secondary to chronic kidney disease. Plan: Hemodialysis today. RICO pending. Cleared for CAT scan of the abdomen with IV contrast if needed.
[2019-12-07] MEDS ORDERED: SODIUM POLYSTYRENE SULFONATE 15 GM/60 ML BOTTLE PO ONE (13:40)
--- NOTE | 2019-12-07 13:47 | P.PN ---
Subjective Patient being worked up for fever of an unclear etiology So far the MRI of the spine and the WBC scans have not revealed a clear-cut source His 2-D echo did not show any masses within the heart or in association with her valves The CT of the chest and abdomen showed an ill-defined lesion in relation to the descending aorta and there was a suspicion of aortitis This study was an oral contrast study only not IV contrast study This patient's creatinine is 9.0 but he is on dialysis He is still waiting for the computed tomography scan which will be done tomorrow His blood pressure is 114/82 mmHg pulse rate is in the 60s He is afebrile White count 10.9, hemoglobin 9.2 Sodium 126, potassium 5.9 BUN 118 creatinine 9.0 Lungs are fairly clear occasional rhonchi No crackles Heart sounds are normal Patient looks well Soft systolic murmur Plan CT with IV contrast to evaluate the aorta and the periaortic tissue Unclear as to why patient is on IV methylprednisolone 8 hours Objective - Vital Signs Vital signs: Vital Signs Temp 97.7 F 12/07/19 09:00 Pulse 60 12/07/19 11:40 Resp 16 12/07/19 11:40 BP 114/82 12/07/19 11:40 Pulse Ox 91 L 12/07/19 11:40 Intake & Output 12/06/19 12/07/19 12/07/19 18:59 06:59 18:59 Intake Total 540 480 480 Balance 540 480 480 Weight 82.6 kg Intake: Oral 540 480 480 Other: # Voids 0 0 1 - Labs CBC & Chem 7: 12/07/19 05:46 12/07/19 05:46 Labs: Abnormal Lab Results - Last 24 Hours (Table) 12/06/19 12/06/19 12/07/19 Range/Units 16:45 20:19 05:46 WBC (3.8-10.6) k/uL RBC (4.30-5.90) m/uL Hgb (13.0-17.5) gm/dL Hct (39.0-53.0) % MCV (80.0-100.0) fL Neutrophils # (1.3-7.7) k/uL Lymphocytes # (1.0-4.8) k/uL Sodium 126 L (137-145) mmol/L Potassium 5.9 H (3.5-5.1) mmol/L Chloride 89 L (98-107) mmol/L Carbon Dioxide 21 L (22-30) mmol/L BUN 118 H* (9-20) mg/dL Creatinine 9.00 H* (0.66-1.25) mg/dL Glucose 133 H (74-99) mg/dL POC Glucose (mg/dL) 137 H 157 H (75-99) mg/dL 12/07/19 12/07/19 12/07/19 Range/Units 05:46 06:04 11:33 WBC 10.9 H (3.8-10.6) k/uL RBC 2.87 L (4.30-5.90) m/uL Hgb 9.2 L (13.0-17.5) gm/dL Hct 28.9 L (39.0-53.0) % MCV 100.7 H (80.0-100.0) fL Neutrophils # 10.2 H (1.3-7.7) k/uL Lymphocytes # 0.4 L (1.0-4.8) k/uL Sodium (137-145) mmol/L Potassium (3.5-5.1) mmol/L Chloride (98-107) mmol/L Carbon Dioxide (22-30) mmol/L BUN (9-20) mg/dL Creatinine (0.66-1.25) mg/dL Glucose (74-99) mg/dL POC Glucose (mg/dL) 145 H 156 H (75-99) mg/dL Microbiology - Last 24 Hours (Table) 12/06/19 06:49 Blood Culture - Preliminary Blood No Growth after 24 hours 12/05/19 06:36 Blood Culture Gram Stain - Preliminary Blood Blood Culture - Preliminary Presumptive MRSA 12/04/19 06:02 Blood Culture Gram Stain - Final Blood Blood Culture - Final Methicillin resist S. aureus
--- NOTE | 2019-12-07 14:06 | P.PN ---
Subjective Progress Note Date: 12/07/19 Principal diagnosis: This is a 59-year-old male who was recently admitted with multiple medical problems including renal failure and also has significant bacteremia with MRSA sepsis which is persistent and being closely monitored. Blood cultures continue to show MRSA and will continue with daily cultures to monitor closely for clearance of bacteremia. Infectious Disease is following. Patient is currently maintained on daptomycin and will continue at this time. Patient underwent CT of the abdomen with only oral contrast and will undergo CT of the chest and abdomen with IV contrast today to assess for possible aortitis. Patient underwent 2-D echo showing moderate concentric left ventricular hypertrophy with overall ventricular systolic function is low to normal with an EF between 50 and 55% but the basal inferior LV wall motion is hypokinetic. Mild pulmonary hypert ension also noted with no vegetation noted per cardiology. Awaiting possible RICO. Pulmonary following and patient scheduled to undergo possible bronchoscopy in the morning. Currently receiving dialysis at this time. Patient is afebrile. White blood count slightly elevated at 10.9. Current creatinine today is 9.0 with a potassium of 5.9, and sodium of 126. Will repeat labs. Review of systems: Constitutional: No reports of fatigue, no reports of fevers or chills Cardiovascular: No reports of chest pain or palpitations Respiratory: No reports of shortness of breath, no reports of cough GI: No reports of nausea, vomiting, or diarrhea : No reports of dysuria or retention Neurovascular: No reports of weakness, no reports of numbness Active Medications Acetaminophen (Tylenol Tab) 650 mg PO Q6HR PRN PRN Reason: Mild Pain or Fever > 100.5 Last Admin: 12/07/19 12:43 Dose: 650 mg Documented by: Hydrocodone Bitart/Acetaminophen ([place] 5-325) 1 each PO Q8H PRN PRN Reason: Pain Last Admin: 12/07/19 04:13 Dose: 1 each Documented by: Al Hydroxide/Mg Hydroxide (Maalox) 15 ml PO Q6HR PRN PRN Reason: Indigestion Last Admin: 12/02/19 11:03 Dose: 15 ml Documented by: Albuterol Sulfate (Ventolin Nebulized) 2.5 mg INHALATION RT-Q4H PRN PRN Reason: Shortness Of Breath Or Wheezing Albuterol/Ipratropium (Duoneb 0.5 Mg-3 Mg/3 Ml Soln) 3 ml INHALATION RT-QID [facility] Last Admin: 12/07/19 11:26 Dose: 3 ml Documented by: Allopurinol (Zyloprim) 100 mg PO QAM [facility] Last Admin: 12/07/19 08:55 Dose: 100 mg Documented by: Alprazolam (Xanax) 0.25 mg PO Q6HR PRN PRN Reason: Anxiety Amlodipine Besylate (Norvasc) 2.5 mg PO DAILY [facility] Last Admin: 12/07/19 08:55 Dose: 2.5 mg Documented by: Aspirin (Aspirin) 81 mg PO DAILY [facility] Last Admin: 12/07/19 08:55 Dose: 81 mg Documented by: Buspirone HCl (Buspar) 20 mg PO BID [facility] Last Admin: 12/07/19 08:55 Dose: 20 mg Documented by: Calcium Carbonate/Glycine (Tums) 1,000 mg PO Q4HR PRN PRN Reason: Dyspepsia Carvedilol (Coreg) 12.5 mg PO AC-BID [facility] Last Admin: 12/07/19 06:34 Dose: 12.5 mg Documented by: Citalopram Hydrobromide (Celexa) 20 mg PO QAM [facility] Last Admin: 12/07/19 08:55 Dose: 20 mg Documented by: Darbepoetin Han (Aranesp) 40 mcg SQ Q7D [facility] Last Admin: 12/06/19 13:30 Dose: 40 mcg Documented by: Enoxaparin Sodium (Lovenox) 30 mg SQ DAILY [facility] Last Admin: 12/07/19 08:55 Dose: 30 mg Documented by: Daptomycin 650 mg/ Sodium (Chloride) 50 mls @ 100 mls/hr IVPB Q48H [facility]; Protocol Last Admin: 12/05/19 18:10 Dose: 100 mls/hr Documented by: Insulin Aspart (Novolog) 0 unit SQ ACHS [facility]; Protocol Last Admin: 12/07/19 12:41 Dose: 3 unit Documented by: Lactulose (Cephulac) 20 gm PO DAILY PRN PRN Reason: Constipation Levothyroxine Sodium (Synthroid) 75 mcg PO 0630 [facility] Last Admin: 12/07/19 06:34 Dose: 75 mcg Documented by: Magnesium Oxide (Mag-Ox) 400 mg PO DAILY [facility] Last Admin: 05/25/20 08:55 Dose: 400 mg Documented by: Melatonin (Melatonin) 3 mg PO HS PRN PRN Reason: Insomnia Methylprednisolone Sodium Succinate (Solu-Medrol) 20 mg IV Q8HR [facility] Last Admin: 12/07/19 08:55 Dose: 20 mg Documented by: Miscellaneous Information (Pneumonia Protocol Utilized) 1 each PO ONCE PRN PRN Reason: Per Protocol Naloxone HCl (Narcan) 0.2 mg IV Q2M PRN PRN Reason: Opioid Reversal Nicotine (Habitrol 21mg/24hr Patch) 1 patch TRANSDERM DAILY [facility] Last Admin: 12/07/19 08:55 Dose: 1 patch Documented by: Patient's Own ( (Auryxia 3 Tab)) 3 tab PO TID-W/MEALS [facility] Last Admin: 12/07/19 13:17 Dose: Not Given Documented by: Ondansetron HCl (Zofran) 4 mg IVP Q8HR PRN PRN Reason: Nausea And Vomiting Pantoprazole Sodium (Protonix) 40 mg PO AC-BID [facility] Last Admin: 12/07/19 06:34 Dose: 40 mg Documented by: Sevelamer Carbonate (Renvela) 800 mg PO TID-W/MEALS [facility] Last Admin: 12/07/19 12:41 Dose: 800 mg Documented by: Objective - Vital Signs Vital signs: Vital Signs Temp 97.7 F 12/07/19 09:00 Pulse 60 12/07/19 11:40 Resp 16 12/07/19 11:40 BP 114/82 12/07/19 11:40 Pulse Ox 91 L 12/07/19 11:40 Intake & Output 12/06/19 12/07/19 12/07/19 18:59 06:59 18:59 Intake Total 540 480 480 Balance 540 480 480 Weight 82.6 kg Intake: Oral 540 480 480 Other: # Voids 0 0 1 - Exam Gen: This is a 59-year-old male sitting up in bed, awake, alert and oriented 3, well-developed, well-nourished. Temp is 97.7F, pulse is 60, respirations are 16, blood pressure is 114/82, oxygen saturation is 91% on room air. HEENT: Head is atraumatic, normocephalic. Pupils equal, round. Sclerae is anicteric. NECK: Supple. No JVD. No lymphadenopathy. No thyromegaly. LUNGS: Breath sounds diminished at the bases with a few scattered rhonchi noted. No intercostal retractions. HEART: S1, S2 are muffled ABDOMEN: Soft. Bowel sounds are present. No masses. No tenderness. EXTREMITIES: No pedal edema. No calf tenderness. NEUROLOGICAL: Patient is awake, alert and oriented x3. Cranial nerves 2 through 12 are grossly intact. - Labs CBC & Chem 7: 12/07/19 05:46 12/07/19 05:46 Labs: Abnormal Lab Results - Last 24 Hours (Table) 12/06/19 12/06/19 12/07/19 Range/Units 16:45 20:19 05:46 WBC (3.8-10.6) k/uL RBC (4.30-5.90) m/uL Hgb (13.0-17.5) gm/dL Hct (39.0-53.0) % MCV (80.0-100.0) fL Neutrophils # (1.3-7.7) k/uL Lymphocytes # (1.0-4.8) k/uL Sodium 126 L (137-145) mmol/L Potassium 5.9 H (3.5-5.1) mmol/L Chloride 89 L (98-107) mmol/L Carbon Dioxide 21 L (22-30) mmol/L BUN 118 H* (9-20) mg/dL Creatinine 9.00 H* (0.66-1.25) mg/dL Glucose 133 H (74-99) mg/dL POC Glucose (mg/dL) 137 H 157 H (75-99) mg/dL 12/07/19 12/07/19 12/07/19 Range/Units 05:46 06:04 11:33 WBC 10.9 H (3.8-10.6) k/uL RBC 2.87 L (4.30-5.90) m/uL Hgb 9.2 L (13.0-17.5) gm/dL Hct 28.9 L (39.0-53.0) % MCV 100.7 H (80.0-100.0) fL Neutrophils # 10.2 H (1.3-7.7) k/uL Lymphocytes # 0.4 L (1.0-4.8) k/uL Sodium (137-145) mmol/L Potassium (3.5-5.1) mmol/L Chloride (98-107) mmol/L Carbon Dioxide (22-30) mmol/L BUN (9-20) mg/dL Creatinine (0.66-1.25) mg/dL Glucose (74-99) mg/dL POC Glucose (mg/dL) 145 H 156 H (75-99) mg/dL Microbiology - Last 24 Hours (Table) 12/06/19 06:49 Blood Culture - Preliminary Blood No Growth after 24 hours 12/05/19 06:36 Blood Culture Gram Stain - Preliminary Blood Blood Culture - Preliminary Presumptive MRSA 12/04/19 06:02 Blood Culture Gram Stain - Final Blood Blood Culture - Final Methicillin resist S. aureus Assessment and Plan Assessment: Persistent bacteremia MRSA sepsis with undetermined origin, unknown etiology Possible pneumonia, sepsis, present on admission Possible aortitis per computed tomography scan Extensive atherosclerosis of the aorta and the computed tomography scan Possible pneumonia with parapneumonic effusion Possible right lower lobe bronchus polyp History of chronic obstructive pulmonary disease, acute exacerbation History of chronic nicotine dependence Acute renal failure End-stage renal disease on hemodialysis Saturday/Saturday/Saturday Lumbar degenerative joint disease with possible sciatica History of coronary artery disease History of congestive heart failure, chronic diastolic heart failure, ejection fraction 50-55% History of gastroesophageal reflux disease Hyperlipidemia Hypertension Hypothyroidism Full code Recommendations and discussion: Recommend continue current medications, management, and symptomatic treatment. Patient to continue with hemodialysis Saturday/Saturday/Saturday. Nephrology following along with multiple medical consultations. Continue with IV antibiotics in the form of daptomycin. Infectious disease following. Cardiolog y following recommending CT of the abdomen to assess the aorta with possible RICO. Will await CT abdomen and chest report. Patient also scheduled to undergo bronchoscopy on 12/08/2019. Due to multiple complex medical issues, prognosis is guarded. Further recommendations to follow.
[2019-12-07 16:41] LABS: Glucose,Whole Blood 149 mg/dL (75-99)
--- NOTE | 2019-12-07 17:30 | PN ---
PROGRESS NOTE DATE OF SERVICE: 12/07/2019 REASON FOR FOLLOWUP: MRSA bacteremia. INTERVAL HISTORY: The patient is currently afebrile. Patient is breathing comfortably. The patient denies having any chest pain, shortness of breath or cough. No abdominal pain. Back pain has improved. No diarrhea. PHYSICAL EXAMINATION: Blood pressure 120/70 with a pulse of 65, temperature 97.7. He is 91% on room air. General description is a middle-aged male lying in bed in no distress. Respiratory system: Unlabored breathing, clear to auscultation anteriorly. Heart S1, S2. Regular rate and rhythm. Abdomen soft, no tenderness. Extremities: No edema of the feet. LABS: Hemoglobin 9.1, white count 10.9, BUN of 19, creatinine 1.0. Blood culture 12/05 so far negative. DIAGNOSTIC IMPRESSION AND PLAN: Patient with MRSA with the bacteremia persistent. This patient did have extensive workup and no obvious clear focus of infection with recent CT ( ). A CT of the chest has been ordered with contrast. Will follow the results and monitor clinical course closely. MMODL / IJN: [id number] /
[2019-12-07 20:30] LABS: Glucose,Whole Blood 182 mg/dL (75-99)
--- NOTE | 2019-12-07 20:51 | P.PN ---
Subjective Progress Note Date: 12/07/19 Principal diagnosis: Persistent bacteremia due to MRSA with positive second blood culture as well Right lower lobe developing pneumonia Acute COPD exacerbation Tracheobronchitis Gram-positive bacteremia cluster source not clear Severe degree of degenerative joint disease of spine, Right lower extremity pain Chronic renal failure stage V on hemodialysis 12/07/2019, he shouldn't seen eval examined during the rounds labs reviewed medications reviewed computed tomography scan finding reviewed the patient as well as his brother brine, procedure have been explained to the patient patient is scheduled for bronchoscopy tomorrow 12/06/2019, patient seen eval examined during the rounds labs reviewed medications reviewed, PT scan of the chest abdominal and pelvis findings have been noted likely associated with mucus plugging, however endobronchial mass cannot be excluded, patient will need bronchoscopy will schedule for 12/08/2019Saturday12/05/2019, patient seen and evaluated examined labs reviewed medications reviewed patient has persistent bacteremia. 4 and blood culture has been positive for MRSA indicating likely intravascular either a dialysis catheter or endocarditis likely however thoracic spine issue on discitis still cannot be excluded diuresis cardiovascular services are following 12/04/2019, patient seen and evaluated examined during the rounds labs reviewed medications reviewed care plan discussed with patient, echocardiogram shows ejection fraction of 55% with some basal ocean abnormalities no valvular dysfunction has been noted, awaiting WBC scan, patient has been room air breathing comfortably 12/03/2019, labs reviewed medications reviewed respiratory status able, patient renal functions have slightly improved with dialysis, on room air his oxygen saturation 92%, respiratory status continued to improve, ID services following 12/02/2019, patient seen eval reexamined during the rounds labs reviewed medications reviewed care plan discussed, patient's respiratory standpoint has been very good however her cultures remain positive for MRSA, ID services following no looking for the source of infection 12/01/2019, patient seen eval reexamined during the rounds labs reviewed medications reviewed shortness of breath and cough has been improved significantly patient has some pain in the spine with radiation to right leg, patient has been evaluated by infectious disease services and MRI of the thoracic spine has been ordered, to rule out discitis, white cell count is normal, patient is being followed by renal services for hemodialysis, This is a 59-year-old male with prior medical history of chronic renal failure on hemodialysis patient came into the hospital with for 5 day history of progressive back pain and neck pain, he was noted to be tachypneic as well as febrile up to 101 chest x-ray shows developing right lower lobe infiltrate the blood cultures are positive for gram-positive cocci in clusters patient likely i s having sepsis due to gram-positive cocci source however is not clear with a component of COPD exacerbation as well and possibly right-sided pneumonia, patient's has significant history of congestive heart failure COPD dyslipidemia hypertension hypertensive cardiovascular disease and 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, CT of lumbar spine shows DJD and Doppler study results are pending, besides having leg pain no other numbness or weakness are present she does have ongoing shortness of breath intermittent cough just mostly nonproductive Objective - Vital Signs Vital signs: Vital Signs Temp 97.8 F 12/07/19 17:00 Pulse 68 12/07/19 20:18 Resp 18 12/07/19 17:00 BP 172/86 12/07/19 17:00 Pulse Ox 91 L 12/07/19 17:00 Intake & Output 12/07/19 12/07/19 12/08/19 06:59 18:59 06:59 Intake Total 480 650 Output Total 2000 Balance 480 -1350 Weight 82.6 kg Intake: Intake, IV Titration 50 Amount DAPTOmycin 650 mg In 50 Sodium Chloride 0.9% 50 ml @ 100 mls/hr IVPB Q48H [facility] Rx#:[id number] Oral 480 600 Output: Hemodialysis 2000 Other: # Voids 0 2 - Exam - Constitutional General appearance: average body habitus, disheveled - EENT Eyes: PERRLA Ears: bilateral: normal - Neck Neck: normal ROM Carotids: bilateral: upstroke normal Thyroid: bilateral: normal size - Respiratory Respiratory: bilateral: diminished - Cardiovascular Rhythm: regular Heart sounds: normal: S1, S2 - Gastrointestinal General gastrointestinal: normal bowel sounds, soft - Integumentary Integumentary: decreased turgor - Neurologic Neurologic: CNII-XII intact - Musculoskeletal Musculoskeletal: generalized weakness, strength equal bilaterally - Psychiatric Psychiatric: A&O x's 3, appropriate affect - Labs CBC & Chem 7: 12/07/19 05:46 12/07/19 05:46 Labs: Abnormal Lab Results - Last 24 Hours (Table) 12/07/19 12/07/19 12/07/19 Range/Units 05:46 05:46 06:04 WBC 10.9 H (3.8-10.6) k/uL RBC 2.87 L (4.30-5.90) m/uL Hgb 9.2 L (13.0-17.5) gm/dL Hct 28.9 L (39.0-53.0) % MCV 100.7 H (80.0-100.0) fL Neutrophils # 10.2 H (1.3-7.7) k/uL Lymphocytes # 0.4 L (1.0-4.8) k/uL Sodium 126 L (137-145) mmol/L Potassium 5.9 H (3.5-5.1) mmol/L Chloride 89 L (98-107) mmol/L Carbon Dioxide 21 L (22-30) mmol/L BUN 118 H* (9-20) mg/dL Creatinine 9.00 H* (0.66-1.25) mg/dL Glucose 133 H (74-99) mg/dL POC Glucose (mg/dL) 145 H (75-99) mg/dL 12/07/19 12/07/19 12/07/19 Range/Units 11:33 16:28 20:29 WBC (3.8-10.6) k/uL RBC (4.30-5.90) m/uL Hgb (13.0-17.5) gm/dL Hct (39.0-53.0) % MCV (80.0-100.0) fL Neutrophils # (1.3-7.7) k/uL Lymphocytes # (1.0-4.8) k/uL Sodium (137-145) mmol/L Potassium (3.5-5.1) mmol/L Chloride (98-107) mmol/L Carbon Dioxide (22-30) mmol/L BUN (9-20) mg/dL Creatinine (0.66-1.25) mg/dL Glucose (74-99) mg/dL POC Glucose (mg/dL) 156 H 149 H 182 H (75-99) mg/dL Microbiology - Last 24 Hours (Table) 12/06/19 06:49 Blood Culture - Preliminary Blood No Growth after 24 hours 12/05/19 06:36 Blood Culture Gram Stain - Preliminary Blood Blood Culture - Preliminary Presumptive MRSA 12/04/19 06:02 Blood Culture Gram Stain - Final Blood Blood Culture - Final Methicillin resist S. aureus Assessment and Plan Assessment: Endobronchial mass/mucous plug Right lower lobe developing pneumonia Acute COPD exacerbation Tracheobronchitis MRSA bacteremia cluster source not clear May be related to line or endocarditis further recommendation per ID service Severe degree of degenerative joint disease of spine Right lower extremity pain Chronic renal failure stage V on hemodialysis Plan: We will schedule bronchoscopy for Saturday, December 06 with possible biopsy Agree with continuation of daptomycin Repeat blood cultures results reviewed Appreciated infectious disease evaluation Continue breathing treatments, steroids Hemodialysis as planned Deep breathing exercise incentive spirometry Further plan of care as per clinical response of the patient Time with Patient: Greater than 30
[2019-12-08 06:20] LABS: Glucose,Whole Blood 135 mg/dL (75-99)
[2019-12-08] MEDS: PANTOPRAZOLE 40 MG TABLET PO SCH ×2 (06:45→17:34)
[2019-12-08] MEDS: LEVOTHYROXINE 75 MCG TAB PO SCH (06:45)
[2019-12-08] MEDS: CARVEDILOL 12.5 MG TAB PO SCH ×2 (06:45→17:34)
[2019-12-08] MEDS: INSULIN ASPART (NovoLOG) 100 UNIT/ML VIAL SQ SCH ×4 (06:45→20:19)
[2019-12-08] MEDS: SEVELAMER 800 MG TAB PO SCH ×3 (06:45→17:34)
[2019-12-08] MEDS: AURYXIA PO SCH ×3 (06:46→17:34)
[2019-12-08] MEDS: IPRATROPIUM-ALBUTEROL 3 ML NEB INHALATION SCH ×4 (08:09→20:23)
[2019-12-08] MEDS: MAGNESIUM OXIDE 400 MG TAB PO SCH (08:29)
[2019-12-08] MEDS: ALLOPURINOL 100 MG TAB PO SCH (08:29)
[2019-12-08] MEDS: methylPREDNISolone SOD SUCCI 40 MG/ML 1 ML VIAL IV SCH ×3 (08:29→23:07)
[2019-12-08 08:30] LABS: Basophils % (A) 0 %; Eosinophils % (A) 0 %; HCT 30.4 % (39.0-53.0); HGB 9.7 gm/dL (13.0-17.5); Lymphocytes # (A) 0.4 k/uL (1.0-4.8); Lymphocytes % (A) 4 %; MCH 32.6 pg (25.0-35.0); MCV 101.9 fL (80.0-100.0); Macrocytosis Slight; Mean Platelet Volume 7.6; Monocytes # (A) 0.4 k/uL (0-1.0); Monocytes % (A) 4 %; Neutrophils # (A) 7.6 k/uL (1.3-7.7); Neutrophils % (A) 90 %; Platelet Count 314 k/uL (150-450); RBC 2.98 m/uL (4.30-5.90); RDW 13.7 % (11.5-15.5); WBC 8.4 k/uL (3.8-10.6)
[2019-12-08] MEDS: CITALOPRAM HYDROBROMIDE 20 MG TAB PO SCH (08:30)
[2019-12-08] MEDS: ASPIRIN 81 MG PO SCH (08:30)
[2019-12-08] MEDS: NICOTINE 21MG/24HR PATCH TRANSDERM SCH (08:30)
[2019-12-08] MEDS: amLODIPine 2.5 MG TAB PO SCH (08:30)
[2019-12-08] MEDS: busPIRone HCl 10 MG TAB PO SCH ×2 (08:30→20:19)
[2019-12-08] MEDS: ENOXAPARIN 30 MG/0.3 ML SYRINGE SQ SCH (08:35)
[2019-12-08] MEDS: ACETAMINOPHEN TAB 325 MG TAB PO PRN ×3 (08:37→23:10)
[2019-12-08 08:53] LABS: Calcium 9.4 mg/dL (8.4-10.2); Potassium 5.4 mmol/L (3.5-5.1)
--- NOTE | 2019-12-08 10:44 | CT ---
EXAMINATION TYPE: CT angio thor/abd pel aorta DATE OF EXAM: 12/08/2019 COMPARISON: 12/05/2019 HISTORY: Aorta, sepsis without source CT DLP: 1807.9 mGycm. Automated Exposure Control for Dose Reduction was Utilized. CONTRAST: CT scan of the thorax, abdomen and pelvis is performed without and with IV Contrast, patient injected with 100 mL of Isovue 370. FINDINGS: LUNGS: Mild background centrilobular emphysematous change is better appreciated on today's exam than the prior. Left hemidiaphragm elevation is again noted. Trace pleural effusions are seen, new on the left. Right basilar opacity enhances less than that of paraspinal musculature and therefore appears a s pneumonia. Lingular atelectasis has much improved from the prior. Multifocal subsegmental atelectas is does remain. Previously seen endobronchial debris is not visualized in the right mainstem bronchus although some debris is seen along the right lateral trachea at the nehal. MEDIASTINUM: Severe atherosclerosis of the thoracic aorta. Severe coronary artery calcifications. Red emonstration of enlarged main pulmonary artery measuring 3.2 cm again suggesting pulmonary arterial h ypertension. There are no greater than 1 cm hilar or mediastinal lymph nodes. The heart is mildly en larged with trace pericardial effusion. OTHER: Moderate to severe bilateral probable retroareolar, symmetric gynecomastia. LIVER/GB: Cholelithiasis is now seen. The liver is of unremarkable morphology on angiographic phase i maging, slightly limiting evaluation for masses. PANCREAS: Pancreatic parenchymal atrophy and a small probable splenule adjacent to the pancreatic geovanni l. SPLEEN: There is a small splenule at the splenic hilum. No splenomegaly. ADRENALS: Bilateral thickening of the adrenal glands likely relates to adrenal gland hyperplasia. KIDNEYS: Bilateral cortical renal atrophy indicative of chronic medical renal disease and bilateral n umerous too small to accurately characterize renal lesions. Renal arterial calcifications are seen. N o hydronephrosis. BOWEL: Minimally dilated colon measures up to 6.3 cm, likely ileus with mild degree colonic fecal sta sis. Only patchy amounts of contrast extending through the colon and colon is suboptimally examined. Contrast is also no longer within small bowel, and limiting examination of the small bowel. The small bowel is clustered in the left mid abdomen and the superior mesenteric vein extends into the left lo wer quadrant crossing the superior mesenteric artery distally such as on image 138. Internal hernia i s possible. No CT evidence of obstruction at this time. LYMPH NODES: No greater than 1cm abdominal or pelvic lymph nodes are appreciated. OSSEOUS STRUCTURES: Nonspecific sclerotic foci are again seen as noted on the prior with multilevel d egenerative change of the spine. OTHER: There is delineation of a focal saccular abdominal aortic aneurysm of the distal thoracic aort a at the diaphragmatic hiatus measuring 4.4 x 3.8 x 3.7 cm in transverse by anterior posterior by truck loader overhead crane niocaudal dimension. Just cranial to the beginning of the aneurysm strand-like density remains around the eccentric with prominent right lateral and posterior aspect of the descending thoracic aorta. Ao rtitis/vasculitis is of primary consideration. However this is similar to prior exams. Extensive athe rosclerosis of the aorta is seen. No contrast extravasation. Extensive atherosclerosis of the branch vessels of the aorta. Occlusion of the right femoral artery is partially visualized. Small amount of free fluid remains within the pelvis, again abnormal for a male. IMPRESSION: 1. Delineation of a distal thoracic saccular abdominal aortic aneurysm measuring up to 4.4 cm with in flammatory change and eccentric wall thickening seen just superior to the aneurysm. Aortitis/vasculit is is of primary consideration at this time. 2. Partial visualization of occlusion of the right femoral artery. Correlate with pulses to ensure th ere is reconstitution more distally. 3. Diminished enhancement of the right basilar opacity most compatible with pneumonia. Trace bilatera l pleural effusions. Endobronchial debris has shifted location in comparison to the prior. 4. Small bowel is predominantly located in the left abdomen with cross over the superior mesenteric a rtery and vein. Findings can be seen in internal hernia. No obstructive process at this time on CT.
[2019-12-08 11:44] LABS: Glucose,Whole Blood 108 mg/dL (75-99)
--- NOTE | 2019-12-08 12:37 | P.PN ---
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, Right lower extremity pain Chronic renal failure stage V on hemodialysis 12/08/2019, patient seen eval examined during the rounds labs reviewed medications reviewed, is still have intermittent cough and congestion nonproductive mostly, patient has finally 7th blood culture growing no growth so far prior 6 of them have been positive for MRSA, patient is scheduled for bronchoscopy and possible biopsy later on today procedure has been explained to the patient and the family at length 12/07/2019, he shouldn't seen eval examined during the rounds labs reviewed medications reviewed computed tomography scan finding reviewed the patient as well as his brother brine, procedure have been explained to the patient patient is scheduled for bronchoscopy tomorrow 12/06/2019, patient seen eval examined during the rounds labs reviewed medications reviewed, PT scan of the chest abdominal and pelvis findings have been noted likely associated with mucus plugging, however endobronchial mass can not be excluded, patient will need bronchoscopy will schedule for 12/08/2019Saturday12/05/2019, patient seen and evaluated examined labs reviewed medications reviewed patient has persistent bacteremia. 4 and blood culture has been positive for MRSA indicating likely intravascular either a dialysis catheter or endocarditis likely however thoracic spine issue on discitis still cannot be excluded diuresis cardiovascular services are following 12/04/2019, patient seen and evaluated examined during the rounds labs reviewed medications reviewed care plan discussed with patient, echocardiogram shows ejection fraction of 55% with some basal ocean abnormalities no valvular dysfunction has been noted, awaiting WBC scan, patient has been room air breathing comfortably 12/03/2019, labs reviewed medications reviewed respiratory status able, patient renal functions have slightly improved with dialysis, on room air his oxygen saturation 92%, respiratory status continued to improve, ID services following 12/02/2019, patient seen eval reexamined during the rounds labs reviewed medications reviewed care plan discussed, patient's respiratory standpoint has been very good however her cultures remain positive for MRSA, ID services following no looking for the source of infection 12/01/2019, patient seen eval reexamined during the rounds labs reviewed medications reviewed shortness of breath and cough has been improved significantly patient has some pain in the spine with radiation to right leg, patient has been evaluated by infectious disease services and MRI of the thoracic spine has been ordered, to rule out discitis, white cell count is normal, patient is being followed by renal services for hemodialysis, This is a 59-year-old male with prior medical history of chronic renal failure on hemodialysis patient came into the hospital with for 5 day history of progressive back pain and neck pain, he was noted to be tachypneic as well as febrile up to 101 chest x-ray shows developing right lower lobe infiltrate the blood cultures are positive for gram-positive cocci in clusters patient likely is having sepsis due to gram-positive cocci source however is not clear with a component of COPD exacerbation as well and possibly right-sided pneumonia, patient's has significant history of congestive heart failure COPD dyslipidemia hypertension hypertensive cardiovascular disease and 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, CT of lumbar spine shows DJD and Doppler study results are pending, besides having leg pain no other numbness or weakness are present she does have ongoing shortness of breath intermittent cough just mostly nonproductive Objective - Vital Signs Vital signs: Vital Signs Temp 97.6 F 12/08/19 12:00 Pulse 58 L 12/08/19 12:00 Resp 18 12/08/19 12:00 BP 164/79 12/08/19 12:00 Pulse Ox 94 L 12/08/19 12:00 Intake & Output 12/07/19 12/08/19 12/08/19 18:59 06:59 18:59 Intake Total 650 Output Total 1999 360 Balance -1350 -360 Weight 80.7 kg Intake: Intake, IV Titration 50 Amount DAPTOmycin 650 mg In 50 Sodium Chloride 0.9% 50 ml @ 100 mls/hr IVPB Q48H [facility] Rx#:[id number] Oral 600 Output: Urine 360 Hemodialysis 2000 Other: # Voids 2 1 1 - Exam - Constitutional General appearance: average body habitus, disheveled - EENT Eyes: PERRLA Ears: bilateral: normal - Neck Neck: normal ROM Carotids: bilateral: upstroke normal Thyroid: bilateral: normal size - Respiratory Respiratory: bilateral: diminished - Cardiovascular Rhythm: regular Heart sounds: normal: S1, S2 - Gastrointestinal General gastrointestinal: normal bowel sounds, soft - Integumentary Integumentary: decreased turgor - Neurologic Neurologic: CNII-XII intact - Musculoskeletal Musculoskeletal: generalized weakness, strength equal bilaterally - Psychiatric Psychiatric: A&O x's 3, appropriate affect - Labs CBC & Chem 7: 12/08/19 07:40 12/08/19 07:40 Labs: Abnormal Lab Results - Last 24 Hours (Table) 12/07/19 12/07/19 12/08/19 Range/Units 16:28 20:29 06:20 RBC (4.30-5.90) m/uL Hgb (13.0-17.5) gm/dL Hct (39.0-53.0) % MCV (80.0-100.0) fL Lymphocytes # (1.0-4.8) k/uL Sodium (137-145) mmol/L Potassium (3.5-5.1) mmol/L Chloride (98-107) mmol/L BUN (9-20) mg/dL Creatinine (0.66-1.25) mg/dL Glucose (74-99) mg/dL POC Glucose (mg/dL) 149 H 182 H 135 H (75-99) mg/dL 12/08/19 12/08/19 12/08/19 Range/Units 07:40 07:40 11:27 RBC 2.98 L (4.30-5.90) m/uL Hgb 9.7 L (13.0-17.5) gm/dL Hct 30.4 L (39.0-53.0) % MCV 101.9 H (80.0-100.0) fL Lymphocytes # 0.4 L (1.0-4.8) k/uL Sodium 134 L (137-145) mmol/L Potassium 5.4 H (3.5-5.1) mmol/L Chloride 97 L (98-107) mmol/L BUN 73 H (9-20) mg/dL Creatinine 5.75 H (0.66-1.25) mg/dL Glucose 102 H (74-99) mg/dL POC Glucose (mg/dL) 108 H (75-99) mg/dL Microbiology - Last 24 Hours (Table) 12/06/19 06:49 Blood Culture - Preliminary Blood No Growth after 48 hours 12/07/19 05:46 Blood Culture - Preliminary Blood No Growth after 24 hours 12/05/19 06:36 Blood Culture Gram Stain - Final Blood Blood Culture - Final Methicillin resist S. 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
[2019-12-08] MEDS ORDERED: KETAMINE 10 MG/ML 20 ML VIAL ONE (12:40)
[2019-12-08] MEDS ORDERED: PROPOFOL 10 MG/ML 20 ML VIAL IV ONE (12:40)
[2019-12-08] MEDS ORDERED: LIDOCAINE 1% INJ 10MG/ML (20 ML MDV) ONE (12:40)
[2019-12-08] MEDS ORDERED: MIDAZOLAM 2 MG/2 ML VIAL ONE (12:40)
[2019-12-08] MEDS ORDERED: SODIUM CHLORIDE 0.9% 500 ML 500 ML IV ONE ×2 (12:50)
--- NOTE | 2019-12-08 12:56 | P.PN ---
Subjective Patient is seen in follow-up for end-stage renal disease. He is maintained on hemodialysis on Saturday schedule. He has a right upper extremity AV fistula. Patient is on IV antibiotics for MRSA bacteremia. Patient denies any complaints. No changes overnight. Scheduled for bronchoscopy today. Vital signs are stable. General: The patient appeared well nourished and normally developed. HEENT: Head exam is unremarkable. Neck is without jugular venous distension. LUNGS: Lungs are clear to auscultation and percussion. Breath sounds decreased. HEART: Rate and Rhythm are regular. ABDOMEN: Abdominal exam reveals normal bowel sounds. Non-tender and non- distended. EXTREMITITES: No clubbing, cyanosis, or edema. Objective - Vital Signs Vital signs: Vital Signs Temp 97.6 F 12/08/19 12:00 Pulse 58 L 12/08/19 12:00 Resp 18 12/08/19 12:00 BP 164/79 12/08/19 12:00 Pulse Ox 94 L 12/08/19 12:00 Intake & Output 12/07/19 12/08/19 12/08/19 18:59 06:59 18:59 Intake Total 650 Output Total 2000 360 Balance -1350 -360 Weight 80.7 kg Intake: Intake, IV Titration 50 Amount DAPTOmycin 650 mg In 50 Sodium Chloride 0.9% 50 ml @ 100 mls/hr IVPB Q48H [facility] Rx#:[id number] Oral 600 Output: Urine 360 Hemodialysis 2000 Other: # Voids 2 1 1 - Labs CBC & Chem 7: 12/08/19 07:40 12/08/19 07:40 Labs: Abnormal Lab Results - Last 24 Hours (Table) 12/07/19 12/07/19 12/08/19 Range/Units 16:28 20:29 06:20 RBC (4.30-5.90) m/uL Hgb (13.0-17.5) gm/dL Hct (39.0-53.0) % MCV (80.0-100.0) fL Lymphocytes # (1.0-4.8) k/uL Sodium (137-145) mmol/L Potassium (3.5-5.1) mmol/L Chloride (98-107) mmol/L BUN (9-20) mg/dL Creatinine (0.66-1.25) mg/dL Glucose (74-99) mg/dL POC Glucose (mg/dL) 149 H 182 H 135 H (75-99) mg/dL 12/08/19 12/08/19 12/08/19 Range/Units 07:40 07:40 11:27 RBC 2.98 L (4.30-5.90) m/uL Hgb 9.7 L (13.0-17.5) gm/dL Hct 30.4 L (39.0-53.0) % MCV 101.9 H (80.0-100.0) fL Lymphocytes # 0.4 L (1.0-4.8) k/uL Sodium 134 L (137-145) mmol/L Potassium 5.4 H (3.5-5.1) mmol/L Chloride 97 L (98-107) mmol/L BUN 73 H (9-20) mg/dL Creatinine 5.75 H (0.66-1.25) mg/dL Glucose 102 H (74-99) mg/dL POC Glucose (mg/dL) 108 H (75-99) mg/dL Microbiology - Last 24 Hours (Table) 12/06/19 06:49 Blood Culture - Preliminary Blood No Growth after 48 hours 12/07/19 05:46 Blood Culture - Preliminary Blood No Growth after 24 hours 12/05/19 06:36 Blood Culture Gram Stain - Final Blood Blood Culture - Final Methicillin resist S. aureus Assessment and Plan Plan: Assessment: 1. End-stage renal disease maintained on hemodialysis on Saturday schedule via right upper extremity AV fistula. 2. Persistent MRSA bacteremia. Unclear source. Maintained on IV antibiotics. WBC scan negative. ?aortitis. 3. Hypertension with chronic kidney disease. Controlled. 4. Chronic kidney disease mineral bone disease maintained on Renvela. 5. Hyponatremia secondary to chronic kidney disease. 6. Anemia of chronic kidney disease. Maintained on Aranesp. 7. Hyperkalemia secondary to chronic kidney disease. Improved postdialysis. Plan: Hemodialysis tomorrow. Scheduled for bronchoscopy today. RICO in the near future.
[2019-12-08] MEDS ORDERED: LIDOCAINE 2% INJ 20 MG/ML INTRATRACH ONE (13:17)
[2019-12-08] MEDS ORDERED: ACETYLCYSTEINE IV 200 MG/ML 30 ML VIAL IV ONE (13:18)
--- NOTE | 2019-12-08 13:27 | P.PCN ---
Date of Procedure: 12/08/19 Preoperative Diagnosis: Pneumonia, endobronchial lesion Postoperative Diagnosis: Pneumonia extensive mucus plugging no endobronchial mass or lesion seen Procedure(s) Performed: Bronchoscopy and bronchoalveolar lavage of right lower lobe with pulmonary toil et and removal of extensive plugs and secretions and mucous plugs Anesthesia: MAC Surgeon: Thompson De Guzman Estimated Blood Loss (ml): 0 Condition: stable Disposition: floor Indications for Procedure: As above Operative Findings: As below Description of Procedure: Fiber-optic bronchial scope was passed through the right nares, the vocal cords were normal structure and function tip of the scope passed beyond the vocal cords into the trachea, extensive amount of mucus plugging was present plugging the bronchoscope, sat them clean, ended up and giving Mucomyst 20% 5 mL in each right and left lower lobe bronchus, once bronchoscope needs to be removed to remove the mucous plug from the human which was clogging it, after aggressive suctioning and pulmonary toilet and removal of plug airway was inspected thoroughly no endobronchial mass or lesion was seen, patient tolerated procedure well no complication noted
--- NOTE | 2019-12-08 16:24 | PN ---
PROGRESS NOTE DATE OF SURGERY: 12/08/2019 REASON FOR FOLLOWUP: MRSA bacteremia, possible aortitis. INTERVAL HISTORY: The patient is currently afebrile. The patient is breathing comfortably. The patient denies having any chest pain or shortness of breath or cough. No nausea or vomiting. No abdominal pain or diarrhea. PHYSICAL EXAMINATION: Blood pressure 164/79 with a pulse of 58, temperature 97.6. He is 94% on room air. General description is a middle-aged male lying in bed in no distress. RESPIRATORY SYSTEM: Unlabored breathing. Clear to auscultation anteriorly. HEART: S1, S2. Regular rate and rhythm. ABDOMEN: Soft. No tenderness. LABS: Hemoglobin 9.6, white count 8.4, BUN of 73, creatinine 5.75. Thoracic aorta suspicious for aortitis, with no evidence of any abscess. DIAGNOSTIC IMPRESSION AND PLAN: Patient with methicillin-resistant Staphylococcus aeruginosa bacteremia, persistent. However, the patient has cleared his bacteremia as of 12/06/2019. Currently on daptomycin with a possible diagnosis of aortitis or abscess. Plan for at least 6 weeks of IV daptomycin which can be done through dialysis, so we can avoid a PICC line. Once antibiotic is arranged, he is cleared to go home from ID standpoint. Continue with supportive care. MMODL / IJN: [id number] /
--- NOTE | 2019-12-08 16:28 | P.PN ---
Subjective Progress Note Date: 12/08/19 Principal diagnosis: This is a 59-year-old male who was recently admitted with multiple medical problems including renal failure and also has significant bacteremia with MRSA sepsis which is persistent and being closely monitored. Blood cultures continue to show MRSA and will continue with daily cultures to monitor closely for clearance of bacteremia. Infectious Disease is following. Patient is currently maintained on daptomycin and will continue at this time. Patient underwent CT of the abdomen with only oral contrast and will undergo CT of the chest and abdomen with IV contrast today to assess for possible aortitis. Patient underwent 2-D echo showing moderate concentric left ventricular hypertrophy with overall ventricular systolic function is low to normal with an EF between 50 and 55% but the basal inferior LV wall motion is hypokinetic. Mild pulmonary hypert ension also noted with no vegetation noted per cardiology. Awaiting possible RICO. Pulmonary following and patient scheduled to undergo possible bronchoscopy in the morning. Currently receiving dialysis at this time. Patient is afebrile. White blood count slightly elevated at 10.9. Current creatinine today is 9.0 with a potassium of 5.9, and sodium of 126. Will repeat labs. Review of systems: Constitutional: No reports of fatigue, no reports of fevers or chills Cardiovascular: No reports of chest pain or palpitations Respiratory: No reports of shortness of breath, no reports of cough GI: No reports of nausea, vomiting, or diarrhea : No reports of dysuria or retention Neurovascular: No reports of weakness, no reports of numbness 12/08/2019 Patient is seen and evaluated and follow-up and is currently nothing by mouth awaiting to undergo bronchoscopy with Dr. De Guzman this afternoon. Patient's most recent blood cultures showing negative for MRSA. Will continue with a repeat blood culture to monitor for clearance of bacteremia. Patient remains on daptomycin and will continue at this time. She's disease following. Patient also scheduled to undergo dialysis in the morning. Patient underwent thoracic aorta CT showing delineation of the distal thoracic saccular abdominal aortic aneurysm measuring up to 4.4 cm with inflammatory changes and eccentric wall thickening seen just superior to the aneurysm with possibility of aortitis/vasculitis, partial visualization of occlusion of the right femoral artery, diminished enhancement of the right basilar opacity most compatible with pneumonia with a trace of bilateral pleural effusions. Cardiology following with the possibility of a RICO in the near future. Currently patient has no reports of chest pain or palpitations, no worsening shortness of breath with an occasional cough. No reports of nausea or vomiting and patient is tolerating diet. Patient states he is hungry as he has been nothing by mouth since midnight. Nephrology also following. Current sodium is 134, potassium is 5.4, creatinine is 5.75. Active Medications Acetaminophen (Tylenol Tab) 650 mg PO Q6HR PRN PRN Reason: Mild Pain or Fever > 100.5 Last Admin: 12/08/19 15:33 Dose: 650 mg Documented by: Hydrocodone Bitart/Acetaminophen (Cash 5-325) 1 each PO Q8H PRN PRN Reason: Pain Last Admin: 12/07/19 17:32 Dose: 1 each Documented by: Al Hydroxide/Mg Hydroxide (Maalox) 15 ml PO Q6HR PRN PRN Reason: Indigestion Last Admin: 12/02/19 11:03 Dose: 15 ml Documented by: Albuterol Sulfate (Ventolin Nebulized) 2.5 mg INHALATION RT-Q4H PRN PRN Reason: Shortness Of Breath Or Wheezing Albuterol/Ipratropium (Duoneb 0.5 Mg-3 Mg/3 Ml Soln) 3 ml INHALATION RT-QID REPLACED BY [facility] Last Admin: 12/08/19 15:52 Dose: 3 ml Documented by: Allopurinol (Zyloprim) 100 mg PO QAM REPLACED BY [facility] Last Admin: 12/08/19 08:29 Dose: 100 mg Documented by: Alprazolam (Xanax) 0.25 mg PO Q6HR PRN PRN Reason: Anxiety Amlodipine Besylate (Norvasc) 2.5 mg PO DAILY REPLACED BY [facility] Last Admin: 12/08/19 08:30 Dose: 2.5 mg Documented by: Aspirin (Aspirin) 81 mg PO DAILY REPLACED BY [facility] Last Admin: 12/08/19 08:30 Dose: 81 mg Documented by: Buspirone HCl (Buspar) 20 mg PO BID REPLACED BY [facility] Last Admin: 12/08/19 08:30 Dose: 20 mg Documented by: Calcium Carbonate/Glycine (Tums) 1,000 mg PO Q4HR PRN PRN Reason: Dyspepsia Carvedilol (Coreg) 12.5 mg PO AC-BID REPLACED BY [facility] Last Admin: 12/08/19 06:45 Dose: 12.5 mg Documented by: Citalopram Hydrobromide (Celexa) 20 mg PO QAM REPLACED BY [facility] Last Admin: 12/08/19 08:30 Dose: 20 mg Documented by: Darbepoetin Han (Aranesp) 40 mcg SQ Q7D REPLACED BY [facility] Last Admin: 12/06/19 13:30 Dose: 40 mcg Documented by: Enoxaparin Sodium (Lovenox) 30 mg SQ DAILY REPLACED BY [facility] Last Admin: 12/08/19 08:35 Dose: 30 mg Documented by: Daptomycin 650 mg/ Sodium (Chloride) 50 mls @ 100 mls/hr IVPB Q48H REPLACED BY [facility]; Protocol Last Admin: 12/07/19 17:05 Dose: 100 mls/hr Documented by: Insulin Aspart (Novolog) 0 unit SQ ACHS REPLACED BY [facility]; Protocol Last Admin: 12/08/19 12:22 Dose: Not Given Documented by: Lactulose (Cephulac) 20 gm PO DAILY PRN PRN Reason: Constipation Levothyroxine Sodium (Synthroid) 75 mcg PO 0630 REPLACED BY [facility] Last Admin: 12/08/19 06:45 Dose: 75 mcg Documented by: Magnesium Oxide (Mag-Ox) 400 mg PO DAILY REPLACED BY [facility] Last Admin: 12/08/19 08:29 Dose: 400 mg Documented by: Melatonin (Melatonin) 3 mg PO HS PRN PRN Reason: Insomnia Methylprednisolone Sodium Succinate (Solu-Medrol) 20 mg IV Q8HR REPLACED BY [facility] Last Admin: 12/08/19 08:29 Dose: 20 mg Documented by: Miscellaneous Information (Pneumonia Protocol Utilized) 1 each PO ONCE PRN PRN Reason: Per Protocol Naloxone HCl (Narcan) 0.2 mg IV Q2M PRN PRN Reason: Opioid Reversal Nicotine (Habitrol 21mg/24hr Patch) 1 patch TRANSDERM DAILY REPLACED BY [facility] Last Admin: 12/08/19 08:30 Dose: 1 patch Documented by: Patient's Own ( (Auryxia 3 Tab)) 3 tab PO TID-W/MEALS REPLACED BY [facility] Last Admin: 12/08/19 12:22 Dose: Not Given Documented by: Ondansetron HCl (Zofran) 4 mg IVP Q8HR PRN PRN Reason: Nausea And Vomiting Pantoprazole Sodium (Protonix) 40 mg PO AC-BID REPLACED BY [facility] Last Admin: 12/08/19 06:45 Dose: 40 mg Documented by: Sevelamer Carbonate (Renvela) 800 mg PO TID-W/MEALS REPLACED BY [facility] Last Admin: 12/08/19 12:23 Dose: Not Given Documented by: Objective - Vital Signs Vital signs: Vital Signs Temp 97.6 F 12/08/19 12:00 Pulse 58 L 12/08/19 12:00 Resp 18 12/08/19 12:00 BP 164/79 12/08/19 12:00 Pulse Ox 94 L 12/08/19 12:00 Intake & Output 12/07/19 12/08/19 12/08/19 18:59 06:59 18:59 Intake Total 650 150 Output Total 2000 360 Balance -1350 -360 150 Weight 80.7 kg Intake: IV 150 Intake, IV Titration 50 Amount DAPTOmycin 650 mg In 50 Sodium Chloride 0.9% 50 ml @ 100 mls/hr IVPB Q48H [facility] Rx#:[id number] Oral 600 Output: Urine 360 Hemodialysis 2000 Other: # Voids 2 1 1 - Exam Gen: This is a 59-year-old male sitting up in bed, awake, alert and oriented 3, well-developed, well-nourished. Temp is 98.0F, pulse is 60, respirations are 16, blood pressure is 154/77, oxygen saturation is 95% on room air. HEENT: Head is atraumatic, normocephalic. Pupils equal, round. Sclerae is anicteric. NECK: Supple. No JVD. No lymphadenopathy. No thyromegaly. LUNGS: Breath sounds diminished at the bases with a few scattered rhonchi noted. No intercostal retractions. HEART: S1, S2 are muffled ABDOMEN: Soft. Bowel sounds are present. No masses. No tenderness. EXTREMITIES: No pedal edema. No calf tenderness. NEUROLOGICAL: Patient is awake, alert and oriented x3. Cranial nerves 2 through 12 are grossly intact. - Labs CBC & Chem 7: 12/08/19 07:40 12/08/19 07:40 Labs: Abnormal Lab Results - Last 24 Hours (Table) 12/07/19 12/07/19 12/08/19 Range/Units 16:28 20:29 06:20 RBC (4.30-5.90) m/uL Hgb (13.0-17.5) gm/dL Hct (39.0-53.0) % MCV (80.0-100.0) fL Lymphocytes # (1.0-4.8) k/uL Sodium (137-145) mmol/L Potassium (3.5-5.1) mmol/L Chloride (98-107) mmol/L BUN (9-20) mg/dL Creatinine (0.66-1.25) mg/dL Glucose (74-99) mg/dL POC Glucose (mg/dL) 149 H 182 H 135 H (75-99) mg/dL 12/08/19 12/08/19 12/08/19 Range/Units 07:40 07:40 11:27 RBC 2.98 L (4.30-5.90) m/uL Hgb 9.7 L (13.0-17.5) gm/dL Hct 30.4 L (39.0-53.0) % MCV 101.9 H (80.0-100.0) fL Lymphocytes # 0.4 L (1.0-4.8) k/uL Sodium 134 L (137-145) mmol/L Potassium 5.4 H (3.5-5.1) mmol/L Chloride 97 L (98-107) mmol/L BUN 73 H (9-20) mg/dL Creatinine 5.75 H (0.66-1.25) mg/dL Glucose 102 H (74-99) mg/dL POC Glucose (mg/dL) 108 H (75-99) mg/dL Microbiology - Last 24 Hours (Table) 12/06/19 06:49 Blood Culture - Preliminary Blood No Growth after 48 hours 12/07/19 05:46 Blood Culture - Preliminary Blood No Growth after 24 hours 12/05/19 06:36 Blood Culture Gram Stain - Final Blood Blood Culture - Final Methicillin resist S. aureus Assessment and Plan Assessment: Persistent bacteremia MRSA sepsis with undetermined origin, unknown etiology Possible pneumonia, sepsis, present on admission Possible aortitis per computed tomography scan Extensive atherosclerosis of the aorta and the computed tomography scan Possible pneumonia with parapneumonic effusion Possible right lower lobe bronchus polyp History of chronic obstructive pulmonary disease, acute exacerbation History of chronic nicotine dependence Acute renal failure End-stage renal disease on hemodialysis Saturday/Saturday/Saturday Lumbar degenerative joint disease with possible sciatica History of coronary artery disease History of congestive heart failure, chronic diastolic heart failure, ejection fraction 50-55% History of gastroesophageal reflux disease Hyperlipidemia Hypertension Hypothyroidism Full code Recommendations and discussion: Recommend continue current medications, management, and symptomatic treatment. Patient to continue with hemodialysis Saturday/Saturday/Saturday. Nephrology following along with multiple medical consultations. Continue with IV antibiotics in the form of daptomycin. Infectious disease following. Most recent blood cultures in the last 24 hours have been negative will repeat cultures to monitor for clearance of bacteremia. Cardiology following with possible RICO in the near future. Patient underwent bronchoscopy today with pulmonary. Due to multiple complex medical issues, prognosis is guarded. Further recommendations to follow.
[2019-12-08 16:50] LABS: Glucose,Whole Blood 121 mg/dL (75-99)
[2019-12-08 20:09] LABS: Glucose,Whole Blood 133 mg/dL (75-99)
[2019-12-08] MEDS: HYDROcodone/APAP 5-325MG 1 EACH TAB PO PRN (20:19)
[2019-12-09] MEDS: ACETAMINOPHEN TAB 325 MG TAB PO PRN (05:33)
[2019-12-09 06:14] LABS: Glucose,Whole Blood 124 mg/dL (75-99)
[2019-12-09] MEDS: CARVEDILOL 12.5 MG TAB PO SCH ×2 (06:38→20:17)
[2019-12-09] MEDS: PANTOPRAZOLE 40 MG TABLET PO SCH ×2 (06:38→20:18)
[2019-12-09] MEDS: LEVOTHYROXINE 75 MCG TAB PO SCH (06:38)
[2019-12-09] MEDS: SEVELAMER 800 MG TAB PO SCH ×3 (06:38→20:18)
[2019-12-09] MEDS: AURYXIA PO SCH ×3 (06:40→20:17)
[2019-12-09] MEDS: INSULIN ASPART (NovoLOG) 100 UNIT/ML VIAL SQ SCH ×4 (06:40→20:36)
[2019-12-09] MEDS: HYDROcodone/APAP 5-325MG 1 EACH TAB PO PRN (06:43)
[2019-12-09 07:31] LABS: Basophils % (A) 0 %; Eosinophils % (A) 0 %; HCT 29.9 % (39.0-53.0); HGB 9.5 gm/dL (13.0-17.5); Lymphocytes # (A) 0.5 k/uL (1.0-4.8); Lymphocytes % (A) 4 %; MCH 32.4 pg (25.0-35.0); MCHC 31.8 g/dL (31.0-37.0); MCV 101.8 fL (80.0-100.0); Macrocytosis Slight; Mean Platelet Volume 7.5; Monocytes # (A) 0.4 k/uL (0-1.0); Monocytes % (A) 3 %; Neutrophils # (A) 10.9 k/uL (1.3-7.7); Neutrophils % (A) 92 %; Platelet Count 303 k/uL (150-450); RBC 2.94 m/uL (4.30-5.90); RDW 13.6 % (11.5-15.5); WBC 11.8 k/uL (3.8-10.6)
[2019-12-09 07:44] LABS: Calcium 9.3 mg/dL (8.4-10.2)
[2019-12-09] MEDS: IPRATROPIUM-ALBUTEROL 3 ML NEB INHALATION SCH ×4 (07:53→20:49)
[2019-12-09 07:59] LABS: Potassium 6.3 mmol/L (3.5-5.1)
[2019-12-09 11:48] LABS: Glucose,Whole Blood 119 mg/dL (75-99)
[2019-12-09] MEDS ORDERED: HYDROcodone/APAP 5-325MG 1 EACH TAB PO PRN (12:07)
--- NOTE | 2019-12-09 12:37 | P.GSCN ---
History of Present Illness Consult date: 12/09/19 History of present illness: The patient is a 59-year-old male with multiple medical problems including end- stage renal disease, CHF, coronary artery disease, hypertension, emphysema who presented the hospital with back pain that was worsened. He was initially seen and evaluated by orthopedics, and subsequent workup and findings showed a tight WBC scan that was negative, but subsequent CT of the chest revealing a small distal descending thoracic aneurysm with some haziness possibly according to an aortitis this area. Patient denies any other vascular disease or vasculitis is aware of. Overall is feeling better since admission. He denies any fevers, chills, nausea vomiting this time. He also went Bronchial lavage revealed severe mucus plugging Past Medical History Past Medical History: Coronary Artery Disease (CAD), Heart Failure, COPD, GERD/Reflux, Hyperlipidemia, Hypertension, Renal Disease, Thyroid Disorder Additional Past Medical History / Comment(s): Chronic kidney failure with hem odialysis on Saturday, Saturday and Fridays with last time being 03/28/18, chronic anemia, cardiomyopathy, c"blood clot in my heart years ago", hypothyroid, post op I&D L submax abscess pt had respiratory failure and was vented. 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 Past Anesthesia/Blood Transfusion Reactions: No Reported Reaction Additional Past Anesthesia/Blood Transfusion Reaction / Comm: Pt has received blood without reaction. Past Psychological History: No Psychological Hx Reported Smoking Status: Current every day smoker Past Alcohol Use History: None Reported Past Drug Use History: None Reported - Past Family History Father Family Medical History: Diabetes Mellitus, Hypertension, Renal Disease Additional Family Medical History / Comment(s): Father was on hemodialysis Mother Family Medical History: Hypertension Medications and Allergies Home Medications Medication Instructions Recorded Confirmed Type Allopurinol [Zyloprim] 100 mg PO QAM 01/16/18 12/02/19 History Aspirin EC [Ecotrin Low Dose] 81 mg PO DAILY 01/16/18 12/02/19 History Citalopram Hydrobromide [CeleXA] 20 mg PO QAM 01/16/18 12/02/19 History Levothyroxine Sodium [Synthroid] 75 mcg PO DAILY 01/16/18 12/02/19 History Magnesium Oxide [Mag-Ox] 400 mg PO DAILY 01/16/18 12/02/19 History Atorvastatin [Lipitor] 80 mg PO HS #30 tab 01/29/18 12/02/19 Rx Carvedilol [Coreg*] 12.5 mg PO AC-BID #60 tab 01/30/18 12/02/19 Rx Auryxia 3 tab PO TID-W/MEALS 03/31/18 12/02/19 History Furosemide [Lasix] 80 mg PO BID 03/31/18 12/02/19 History hydrALAZINE HCL [Apresoline] 25 mg PO TID #90 tab 04/01/18 12/02/19 Rx Albuterol Inhaler [Ventolin Hfa 2 puff INHALATION RT-Q6H PRN 11/30/19 12/02/19 History Inhaler] Auryxia 1 - 2 tab PO BID PRN 11/30/19 12/02/19 History Famotidine [Pepcid] 20 mg PO QAM 11/30/19 12/02/19 History Vitamin D2 (Unknown Strength) 1 tab PO DAILY@12 11/30/19 12/02/19 History amLODIPine [Norvasc] 10 mg PO QAM 11/30/19 12/02/19 History busPIRone HCl [Buspar] 20 mg PO BID 11/30/19 12/02/19 History Allergies Allergy/AdvReac Type Severity Reaction Status Date / Time Penicillins Allergy Unknown Verified 12/02/19 10:04 Childhood Surgical - Exam Vital Signs Temp Pulse Resp BP Pulse Ox 101.1 F H 72 30 H 120/95 83 L 11/30/19 02:57 11/30/19 02:57 11/30/19 02:57 11/30/19 02:57 11/30/19 02:57 Genitals a pleasant cooperative male in no acute distress on dialysis currently. HEENT is normocephalic, atraumatic, etc. he motion intact. Heart is regular in rate and rhythm at this time. Lungs are clear bilaterally. Right upper extremity AV fistula intact, functioning well during dialysis currently. Ab domen is soft, nontender nondistended. Left upper extremity. Is amputated as a child. Bilateral exertional dry. No clubbing, cyanosis or edema. Normal mood and affect. Results - Labs 12/09/19 06:41 12/09/19 06:41 Abnormal Lab Results - Last 24 Hours (Table) 12/08/19 12/08/19 12/09/19 Range/Units 16:42 20:08 06:12 WBC (3.8-10.6) k/uL RBC (4.30-5.90) m/uL Hgb (13.0-17.5) gm/dL Hct (39.0-53.0) % MCV (80.0-100.0) fL Neutrophils # (1.3-7.7) k/uL Lymphocytes # (1.0-4.8) k/uL Sodium (137-145) mmol/L Potassium (3.5-5.1) mmol/L Chloride (98-107) mmol/L BUN (9-20) mg/dL Creatinine (0.66-1.25) mg/dL Glucose (74-99) mg/dL POC Glucose (mg/dL) 121 H 133 H 124 H (75-99) mg/dL 12/09/19 12/09/19 12/09/19 Range/Units 06:41 06:41 11:46 WBC 11.8 H (3.8-10.6) k/uL RBC 2.94 L (4.30-5.90) m/uL Hgb 9.5 L (13.0-17.5) gm/dL Hct 29.9 L (39.0-53.0) % MCV 101.8 H (80.0-100.0) fL Neutrophils # 10.9 H (1.3-7.7) k/uL Lymphocytes # 0.5 L (1.0-4.8) k/uL Sodium 131 L (137-145) mmol/L Potassium 6.3 H* (3.5-5.1) mmol/L Chloride 94 L (98-107) mmol/L BUN 101 H* (9-20) mg/dL Creatinine 7.22 H* (0.66-1.25) mg/dL Glucose 106 H (74-99) mg/dL POC Glucose (mg/dL) 119 H (75-99) mg/dL Microbiology - Last 24 Hours (Table) 12/08/19 13:15 Acid Fast Bacilli Culture - Preliminary Bronchoalviolar Lavage - Right 12/08/19 13:15 Fungal Culture - Preliminary Bronchoalviolar Lavage - Right 12/08/19 13:15 Bronchial Washings Culture - Preliminary Bronchoalviolar Lavage - Right 12/06/19 06:49 Blood Culture - Preliminary Blood No Growth after 72 hours 12/07/19 05:46 Blood Culture - Preliminary Blood No Growth after 48 hours 12/04/19 06:02 Blood Culture Gram Stain - Final Blood Blood Culture - Final Methicillin resist S. aureus Diabetes panel 12/09/19 Range/Units 06:41 Sodium 131 L (137-145) mmol/L Potassium 6.3 H* (3.5-5.1) mmol/L Chloride 94 L (98-107) mmol/L Carbon Dioxide 24 (22-30) mmol/L BUN 101 H* (9-20) mg/dL Creatinine 7.22 H* (0.66-1.25) mg/dL Glucose 106 H (74-99) mg/dL Calcium 9.3 (8.4-10.2) mg/dL Calcium panel 12/09/19 Range/Units 06:41 Calcium 9.3 (8.4-10.2) mg/dL Pituitary panel 12/09/19 Range/Units 06:41 Sodium 131 L (137-145) mmol/L Potassium 6.3 H* (3.5-5.1) mmol/L Chloride 94 L (98-107) mmol/L Carbon Dioxide 24 (22-30) mmol/L BUN 101 H* (9-20) mg/dL Creatinine 7.22 H* (0.66-1.25) mg/dL Glucose 106 H (74-99) mg/dL Calcium 9.3 (8.4-10.2) mg/dL Adrenal panel 12/09/19 Range/Units 06:41 Sodium 131 L (137-145) mmol/L Potassium 6.3 H* (3.5-5.1) mmol/L Chloride 94 L (98-107) mmol/L Carbon Dioxide 24 (22-30) mmol/L BUN 101 H* (9-20) mg/dL Creatinine 7.22 H* (0.66-1.25) mg/dL Glucose 106 H (74-99) mg/dL Calcium 9.3 (8.4-10.2) mg/dL Assessment and Plan Assessment: #1 bacteremia, now improved #2 leukocytosis #3 4.4 cm descending thoracic aortic aneurysm with haziness, possible aortitis #4 end-stage renal disease on dialysis Plan: At this point, no obvious infection noted. No area of abscess in the aorta. May have some degree of aortitis versus small aneurysm. Continue IV antibiotics in steroids. If it is appear to be unresolving, patient would need open thoracic surgery by CVT. At this point continue conservative care and this is discussed with the patient is seemingly understands and is willing to proceed as such
[2019-12-09] MEDS ORDERED: hydrALAZINE HCL 20 MG/ML 1 ML VIAL IVP PRN (12:39)
--- NOTE | 2019-12-09 12:40 | P.PN ---
Subjective Patient is seen in follow-up for end-stage renal disease. He is maintained on hemodialysis on Saturday schedule. He has a right upper extremity AV fistula. Patient is on IV antibiotics for MRSA bacteremia. Patient denies any complaints. He is eager to be discharged. Underwent bronchoscopy on December 07 which did not reveal any masses however extensive plugs and secretions were removed. Vital signs are stable. General: The patient appeared well nourished and normally developed. HEENT: Head exam is unremarkable. Neck is without jugular venous distension. LUNGS: Lungs are clear to auscultation and percussion. Breath sounds decreased. HEART: Rate and Rhythm are regular. ABDOMEN: Abdominal exam reveals normal bowel sounds. Non-tender and non- distended. EXTREMITITES: No clubbing, cyanosis, or edema. Objective - Vital Signs Vital signs: Vital Signs Temp 98.4 F 12/09/19 08:00 Pulse 55 L 12/09/19 08:00 Resp 16 12/09/19 11:51 BP 180/84 12/09/19 08:00 Pulse Ox 93 L 12/09/19 04:00 Intake & Output 12/08/19 12/09/19 12/09/19 18:59 06:59 18:59 Intake Total 270 240 Output Total 360 Balance 270 -360 240 Weight 80.3 kg Intake: IV 150 Oral 120 240 Output: Urine 360 Other: # Voids 1 1 - Labs CBC & Chem 7: 12/09/19 06:41 12/09/19 06:41 Labs: Abnormal Lab Results - Last 24 Hours (Table) 12/08/19 12/08/19 12/09/19 Range/Units 16:42 20:08 06:12 WBC (3.8-10.6) k/uL RBC (4.30-5.90) m/uL Hgb (13.0-17.5) gm/dL Hct (39.0-53.0) % MCV (80.0-100.0) fL Neutrophils # (1.3-7.7) k/uL Lymphocytes # (1.0-4.8) k/uL Sodium (137-145) mmol/L Potassium (3.5-5.1) mmol/L Chloride (98-107) mmol/L BUN (9-20) mg/dL Creatinine (0.66-1.25) mg/dL Glucose (74-99) mg/dL POC Glucose (mg/dL) 121 H 133 H 124 H (75-99) mg/dL 12/09/19 12/09/19 12/09/19 Range/Units 06:41 06:41 11:46 WBC 11.8 H (3.8-10.6) k/uL RBC 2.94 L (4.30-5.90) m/uL Hgb 9.5 L (13.0-17.5) gm/dL Hct 29.9 L (39.0-53.0) % MCV 101.8 H (80.0-100.0) fL Neutrophils # 10.9 H (1.3-7.7) k/uL Lymphocytes # 0.5 L (1.0-4.8) k/uL Sodium 131 L (137-145) mmol/L Potassium 6.3 H* (3.5-5.1) mmol/L Chloride 94 L (98-107) mmol/L BUN 101 H* (9-20) mg/dL Creatinine 7.22 H* (0.66-1.25) mg/dL Glucose 106 H (74-99) mg/dL POC Glucose (mg/dL) 119 H (75-99) mg/dL Microbiology - Last 24 Hours (Table) 12/08/19 13:15 Acid Fast Bacilli Culture - Preliminary Bronchoalviolar Lavage - Right 12/08/19 13:15 Fungal Culture - Preliminary Bronchoalviolar Lavage - Right 12/08/19 13:15 Bronchial Washings Culture - Preliminary Bronchoalviolar Lavage - Right 12/06/19 06:49 Blood Culture - Preliminary Blood No Growth after 72 hours 12/07/19 05:46 Blood Culture - Preliminary Blood No Growth after 48 hours 12/04/19 06:02 Blood Culture Gram Stain - Final Blood Blood Culture - Final Methicillin resist S. aureus Assessment and Plan Plan: Assessment: 1. End-stage renal disease maintained on hemodialysis on Saturday schedule via right upper extremity AV fistula. 2. Persistent MRSA bacteremia. Unclear source. Maintained on IV antibiotics. WBC scan negative. ?aortitis. ?vegetation. Status post bronchoscopy in December 07 with removal of secretions and mucous plugs. 3. Hypertension with chronic kidney disease. 4. Chronic kidney disease mineral bone disease maintained on Renvela. 5. Hyponatremia secondary to chronic kidney disease. 6. Anemia of chronic kidney disease. Maintained on Aranesp. 7. Hyperkalemia secondary to chronic kidney disease. Expect improvement postdialysis. Plan: Currently seen while undergoing hemodialysis. Next treatment on Saturday. Repeat potassium level this evening. Add hydralazine as needed for systolic blood pressure greater than 160.
[2019-12-09] MEDS: HYDROmorphone 0.5 MG/0.5 ML SYRINGE IVP PRN ×2 (12:42→22:39)
[2019-12-09] MEDS: methylPREDNISolone SOD SUCCI 40 MG/ML 1 ML VIAL IV SCH ×3 (13:20→22:42)
[2019-12-09] MEDS: NICOTINE 21MG/24HR PATCH TRANSDERM SCH (13:20)
[2019-12-09] MEDS: busPIRone HCl 10 MG TAB PO SCH ×2 (13:21→20:15)
[2019-12-09] MEDS: CITALOPRAM HYDROBROMIDE 20 MG TAB PO SCH (13:21)
[2019-12-09] MEDS: ASPIRIN 81 MG PO SCH (13:21)
[2019-12-09] MEDS: MAGNESIUM OXIDE 400 MG TAB PO SCH (13:21)
[2019-12-09] MEDS: ALLOPURINOL 100 MG TAB PO SCH (13:21)
[2019-12-09] MEDS: amLODIPine 2.5 MG TAB PO SCH (13:22)
[2019-12-09] MEDS: ENOXAPARIN 30 MG/0.3 ML SYRINGE SQ SCH (13:22)
--- NOTE | 2019-12-09 14:00 | P.PN ---
Subjective Progress Note Date: 12/09/19 Principal diagnosis: This is a 59-year-old male who was recently admitted with multiple medical problems including renal failure and also has significant bacteremia with MRSA sepsis which is persistent and being closely monitored. Blood cultures continue to show MRSA and will continue with daily cultures to monitor closely for clearance of bacteremia. Infectious Disease is following. Patient is currently maintained on daptomycin and will continue at this time. Patient underwent CT of the abdomen with only oral contrast and will undergo CT of the chest and abdomen with IV contrast today to assess for possible aortitis. Patient underwent 2-D echo showing moderate concentric left ventricular hypertrophy with overall ventricular systolic function is low to normal with an EF between 50 and 55% but the basal inferior LV wall motion is hypokinetic. Mild pulmonary hypert ension also noted with no vegetation noted per cardiology. Awaiting possible RICO. Pulmonary following and patient scheduled to undergo possible bronchoscopy in the morning. Currently receiving dialysis at this time. Patient is afebrile. White blood count slightly elevated at 10.9. Current creatinine today is 9.0 with a potassium of 5.9, and sodium of 126. Will repeat labs. Review of systems: Constitutional: No reports of fatigue, no reports of fevers or chills Cardiovascular: No reports of chest pain or palpitations Respiratory: No reports of shortness of breath, no reports of cough GI: No reports of nausea, vomiting, or diarrhea : No reports of dysuria or retention Neurovascular: No reports of weakness, no reports of numbness 12/08/2019 Patient is seen and evaluated and follow-up and is currently nothing by mouth awaiting to undergo bronchoscopy with Dr. De Guzman this afternoon. Patient's most recent blood cultures showing negative for MRSA. Will continue with a repeat blood culture to monitor for clearance of bacteremia. Patient remains on daptomycin and will continue at this time. She's disease following. Patient also scheduled to undergo dialysis in the morning. Patient underwent thoracic aorta CT showing delineation of the distal thoracic saccular abdominal aortic aneurysm measuring up to 4.4 cm with inflammatory changes and eccentric wall thickening seen just superior to the aneurysm with possibility of aortitis/vasculitis, partial visualization of occlusion of the right femoral artery, diminished enhancement of the right basilar opacity most compatible with pneumonia with a trace of bilateral pleural effusions. Cardiology following with the possibility of a RICO in the near future. Currently patient has no reports of chest pain or palpitations, no worsening shortness of breath with an occasional cough. No reports of nausea or vomiting and patient is tolerating diet. Patient states he is hungry as he has been nothing by mouth since midnight. Nephrology also following. Current sodium is 134, potassium is 5.4, creatinine is 5.75. 12/09/2019 Patient is seen in follow-up today currently undergoing hemodialysis and stating he is having severe back pain and unable to sleep all night. Patient underwent bronchoscopy with Dr. De Guzman yesterday with multiple mucous plugs removed. Multiple medical consultations following. Patient continues on IV antibiotics in the form of daptomycin and will continue at this time. Blood cultures from 12/05 and 12/07/2019 thus far remain negative. Bronchial washing samples sent and pending at this time. Patient's potassium today was 6.3, sodium is 131, BUNs 101, and creatinine 7.22 and will repeat labs after dialysis this evening. Vascular surgery consulted and pending at this time. Review of systems: Constitutional: No reports of fevers or chills Cardiovascular: No reports of chest pain or palpitations Respiratory: No reports of shortness of breath or cough GI: No reports of nausea, vomiting, or diarrhea : No reports of dysuria Musculoskeletal: Reports generalized back pain Neurovascular: No reports of weakness or numbness Active Medications Acetaminophen (Tylenol Tab) 650 mg PO Q6HR PRN PRN Reason: Mild Pain or Fever > 100.5 Last Admin: 12/09/19 05:33 Dose: 650 mg Documented by: Hydrocodone Bitart/Acetaminophen ([place] 5-325) 1 each PO Q4HR PRN PRN Reason: Pain Al Hydroxide/Mg Hydroxide (Maalox) 15 ml PO Q6HR PRN PRN Reason: Indigestion Last Admin: 12/02/19 11:03 Dose: 15 ml Documented by: Albuterol Sulfate (Ventolin Nebulized) 2.5 mg INHALATION RT-Q4H PRN PRN Reason: Shortness Of Breath Or Wheezing Albuterol/Ipratropium (Duoneb 0.5 Mg-3 Mg/3 Ml Soln) 3 ml INHALATION RT-QID [facility] Last Admin: 12/09/19 11:48 Dose: Not Given Documented by: Allopurinol (Zyloprim) 100 mg PO QAM [facility] Last Admin: 12/09/19 13:21 Dose: 100 mg Documented by: Alprazolam (Xanax) 0.25 mg PO Q6HR PRN PRN Reason: Anxiety Last Admin: 12/09/19 02:38 Dose: 0.25 mg Documented by: Amlodipine Besylate (Norvasc) 2.5 mg PO DAILY [facility] Last Admin: 12/09/19 13:22 Dose: 2.5 mg Documented by: Aspirin (Aspirin) 81 mg PO DAILY [facility] Last Admin: 12/09/19 13:21 Dose: 81 mg Documented by: Buspirone HCl (Buspar) 20 mg PO BID [facility] Last Admin: 12/09/19 13:21 Dose: 20 mg Documented by: Calcium Carbonate/Glycine (Tums) 1,000 mg PO Q4HR PRN PRN Reason: Dyspepsia Carvedilol (Coreg) 12.5 mg PO AC-BID [facility] Last Admin: 12/09/19 06:38 Dose: 12.5 mg Documented by: Citalopram Hydrobromide (Celexa) 20 mg PO QAM [facility] Last Admin: 12/09/19 13:21 Dose: 20 mg Documented by: Darbepoetin Han (Aranesp) 40 mcg SQ Q7D [facility] Last Admin: 12/06/19 13:30 Dose: 40 mcg Documented by: Enoxaparin Sodium (Lovenox) 30 mg SQ DAILY [facility] Last Admin: 12/09/19 13:22 Dose: 30 mg Documented by: Hydralazine HCl (Apresoline) 10 mg IVP Q4HR PRN PRN Reason: Blood Pressure - High Hydromorphone HCl (Dilaudid) 0.5 mg IVP Q4HR PRN PRN Reason: Pain Last Admin: 12/09/19 12:42 Dose: 0.5 mg Documented by: Daptomycin 650 mg/ Sodium (Chloride) 50 mls @ 100 mls/hr IVPB Q48H [facility]; Protocol Last Admin: 12/07/19 17:05 Dose: 100 mls/hr Documented by: Insulin Aspart (Novolog) 0 unit SQ ACHS [facility]; Protocol Last Admin: 12/09/19 13:23 Dose: Not Given Documented by: Lactulose (Cephulac) 20 gm PO DAILY PRN PRN Reason: Constipation Levothyroxine Sodium (Synthroid) 75 mcg PO 0630 [facility] Last Admin: 12/09/19 06:38 Dose: 75 mcg Documented by: Magnesium Oxide (Mag-Ox) 400 mg PO DAILY [facility] Last Admin: 12/09/19 13:21 Dose: 400 mg Documented by: Melatonin (Melatonin) 3 mg PO HS PRN PRN Reason: Insomnia Methylprednisolone Sodium Succinate (Solu-Medrol) 20 mg IV Q8HR [facility] Last Admin: 12/09/19 13:20 Dose: 20 mg Documented by: Miscellaneous Information (Pneumonia Protocol Utilized) 1 each PO ONCE PRN PRN Reason: Per Protocol Naloxone HCl (Narcan) 0.2 mg IV Q2M PRN PRN Reason: Opioid Reversal Nicotine (Habitrol 21mg/24hr Patch) 1 patch TRANSDERM DAILY [facility] Last Admin: 12/09/19 13:20 Dose: 1 patch Documented by: Patient's Own ( (Auryxia 3 Tab)) 3 tab PO TID-W/MEALS [facility] Last Admin: 12/09/19 13:23 Dose: Not Given Documented by: Ondansetron HCl (Zofran) 4 mg IVP Q8HR PRN PRN Reason: Nausea And Vomiting Pantoprazole Sodium (Protonix) 40 mg PO AC-BID [facility] Last Admin: 12/09/19 06:38 Dose: 40 mg Documented by: Sevelamer Carbonate (Renvela) 800 mg PO TID-W/MEALS [facility] Last Admin: 12/09/19 13:22 Dose: 800 mg Documented by: Objective - Vital Signs Vital signs: Vital Signs Temp 98.4 F 12/09/19 08:00 Pulse 55 L 12/09/19 08:00 Resp 16 12/09/19 11:51 BP 180/84 12/09/19 08:00 Pulse Ox 93 L 12/09/19 04:00 Intake & Output 12/08/19 12/09/19 12/09/19 18:59 06:59 18:59 Intake Total 270 240 Output Total 360 Balance 270 -360 240 Weight 80.3 kg Intake: IV 150 Oral 120 240 Output: Urine 360 Other: # Voids 1 1 - Exam Gen: This is a 59-year-old male sitting up in bed, awake, alert and oriented 3, well-developed, well-nourished. Temp is 98.4F, pulse is 55, respirations are 16, blood pressure is 180/84, oxygen saturation is 93% on room air. HEENT: Head is atraumatic, normocephalic. Pupils equal, round. Sclerae is anicteric. NECK: Supple. No JVD. No lymphadenopathy. No thyromegaly. LUNGS: Breath sounds diminished at the bases with a few scattered rhonchi noted. No intercostal retractions. HEART: S1, S2 are muffled ABDOMEN: Soft. Bowel sounds are present. No masses. No tenderness. MUSCULOSKELETAL: Lower back tenderness on palpation EXTREMITIES: No pedal edema. No calf tenderness. NEUROLOGICAL: Patient is awake, alert and oriented x3. Cranial nerves 2 through 12 are grossly intact. - Labs CBC & Chem 7: 12/09/19 06:41 12/09/19 06:41 Labs: Abnormal Lab Results - Last 24 Hours (Table) 12/08/19 12/08/19 12/09/19 Range/Units 16:42 20:08 06:12 WBC (3.8-10.6) k/uL RBC (4.30-5.90) m/uL Hgb (13.0-17.5) gm/dL Hct (39.0-53.0) % MCV (80.0-100.0) fL Neutrophils # (1.3-7.7) k/uL Lymphocytes # (1.0-4.8) k/uL Sodium (137-145) mmol/L Potassium (3.5-5.1) mmol/L Chloride (98-107) mmol/L BUN (9-20) mg/dL Creatinine (0.66-1.25) mg/dL Glucose (74-99) mg/dL POC Glucose (mg/dL) 121 H 133 H 124 H (75-99) mg/dL 12/09/19 12/09/19 12/09/19 Range/Units 06:41 06:41 11:46 WBC 11.8 H (3.8-10.6) k/uL RBC 2.94 L (4.30-5.90) m/uL Hgb 9.5 L (13.0-17.5) gm/dL Hct 29.9 L (39.0-53.0) % MCV 101.8 H (80.0-100.0) fL Neutrophils # 10.9 H (1.3-7.7) k/uL Lymphocytes # 0.5 L (1.0-4.8) k/uL Sodium 131 L (137-145) mmol/L Potassium 6.3 H* (3.5-5.1) mmol/L Chloride 94 L (98-107) mmol/L BUN 101 H* (9-20) mg/dL Creatinine 7.22 H* (0.66-1.25) mg/dL Glucose 106 H (74-99) mg/dL POC Glucose (mg/dL) 119 H (75-99) mg/dL Microbiology - Last 24 Hours (Table) 12/08/19 13:15 Acid Fast Bacilli Culture - Preliminary Bronchoalviolar Lavage - Right 12/08/19 13:15 Fungal Culture - Preliminary Bronchoalviolar Lavage - Right 12/08/19 13:15 Bronchial Washings Culture - Preliminary Bronchoalviolar Lavage - Right 12/06/19 06:49 Blood Culture - Preliminary Blood No Growth after 72 hours 12/07/19 05:46 Blood Culture - Preliminary Blood No Growth after 48 hours 12/04/19 06:02 Blood Culture Gram Stain - Final Blood Blood Culture - Final Methicillin resist S. aureus Assessment and Plan Assessment: Persistent bacteremia MRSA sepsis with undetermined origin, unknown etiology Possible pneumonia, sepsis, present on admission Possible aortitis per computed tomography scan Extensive atherosclerosis of the aorta and the computed tomography scan Possible pneumonia with parapneumonic effusion Possible right lower lobe bronchus polyp History of chronic obstructive pulmonary disease, acute exacerbation History of chronic nicotine dependence Acute renal failure End-stage renal disease on hemodialysis Saturday/Saturday/Saturday Lumbar degenerative joint disease with possible sciatica History of coronary artery disease History of congestive heart failure, chronic diastolic heart failure, ejection fraction 50-55% History of gastroesophageal reflux disease Hyperlipidemia Hypertension Hypothyroidism Full code Recommendations and discussion: Recommend continue current medications, management, and symptomatic treatment. Patient to continue with hemodialysis Saturday/Saturday/Saturday. Nephrology following along with multiple medical consultations. Continue with IV antibiot ics in the form of daptomycin. Infectious disease following. Most recent blood cultures in the last 48 and 72 hours have been negative to monitor for clearance of bacteremia. Arranging for outpatient antibiotic therapy. Vascular surgery consulted and pending at this time. Patient having extreme back pain. Will order MRI. Due to multiple complex medical issues, prognosis is guarded. Further recommendations to follow.
[2019-12-09 14:47] LABS: C-ANCA <1:20 Titer (<1:20)
--- NOTE | 2019-12-09 16:34 | P.PN ---
Subjective Progress Note Date: 12/09/19 Principal diagnosis: Persistent bacteremia due to MRSA with positive second blood culture as well Right lower lobe developing pneumonia Acute COPD exacerbation Tracheobronchitis Gram-positive bacteremia cluster source not clear Severe degree of degenerative joint disease of spine, Right lower extremity pain Chronic renal failure stage V on hemodialysis 12/09/2019, patient sitting upright in the bed breathing comfortably does complain of chronic aches and pains, breathing is much better after the bronchoscopy resection and pulmonary toilet and done an mucus plugging removed, patient has been evaluated by vascular surgery agree with diagnoses of aortitis but however no abscess is present they recommend to observe the patient closely, patient has received hemodialysis today, bronchial washings culture have been reviewed results are pending, last to set of blood cultures have been negative so far 12/08/2019, patient seen eval examined during the rounds labs reviewed medications reviewed, is still have intermittent cough and congestion nonproductive mostly, patient has finally 7th blood culture growing no growth so far prior 6 of them have been positive for MRSA, patient is scheduled for bronchoscopy and possible biopsy later on today procedure has been explained to the patient and the family at length 12/07/2019, he shouldn't seen eval examined during the rounds labs reviewed medications reviewed computed tomography scan finding reviewed the patient as well as his brother brine, procedure have been explained to the patient patient is scheduled for bronchoscopy tomorrow 12/06/2019, patient seen eval examined during the rounds labs reviewed medica tions reviewed, PT scan of the chest abdominal and pelvis findings have been noted likely associated with mucus plugging, however endobronchial mass cannot be excluded, patient will need bronchoscopy will schedule for 12/08/2019Saturday12/05/2019, patient seen and evaluated examined labs reviewed medications reviewed patient has persistent bacteremia. 4 and blood culture has been positive for MRSA indicating likely intravascular either a dialysis catheter or endocarditis likely however thoracic spine issue on discitis still cannot be excluded diuresis cardiovascular services are following 12/04/2019, patient seen and evaluated examined during the rounds labs reviewed medications reviewed care plan discussed with patient, echocardiogram shows ejection fraction of 55% with some basal ocean abnormalities no valvular dysfunction has been noted, awaiting WBC scan, patient has been room air breathing comfortably 12/03/2019, labs reviewed medications reviewed respiratory status able, patient renal functions have slightly improved with dialysis, on room air his oxygen saturation 92%, respiratory status continued to improve, ID services following 12/02/2019, patient seen eval reexamined during the rounds labs reviewed medications reviewed care plan discussed, patient's respiratory standpoint has been very good however her cultures remain positive for MRSA, ID services following no looking for the source of infection 12/01/2019, patient seen eval reexamined during the rounds labs reviewed medications reviewed shortness of breath and cough has been improved significantly patient has some pain in the spine with radiation to right leg, patient has been evaluated by infectious disease services and MRI of the thoracic spine has been ordered, to rule out discitis, white cell count is normal, patient is being followed by renal services for hemodialysis, This is a 59-year-old male with prior medical history of chronic renal failure on hemodialysis patient came into the hospital with for 5 day history of progressive back pain and neck pain, he was noted to be tachypneic as well as febrile up to 101 chest x-ray shows developing right lower lobe infiltrate the blood cultures are positive for gram-positive cocci in clusters patient likely is having sepsis due to gram-positive cocci source however is not clear with a component of COPD exacerbation as well and possibly right-sided pneumonia, patient's has significant history of congestive heart failure COPD dyslipidemia hypertension hypertensive cardiovascular disease and 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, CT of lumbar spine shows DJD and Doppler study results are pending, besides having leg pain no other numbness or weakness are present she does have ongoing shortness of breath intermittent cough just mostly nonproductive Objective - Vital Signs Vital signs: Vital Signs Temp 98.4 F 12/09/19 13:00 Pulse 62 12/09/19 16:28 Resp 16 12/09/19 15:56 BP 199/89 12/09/19 13:00 Pulse Ox 95 12/09/19 12:00 Intake & Output 12/08/19 12/09/19 12/09/19 18:59 06:59 18:59 Intake Total 270 360 Output Total 360 1700 Balance 270 -360 -1340 Weight 80.3 kg Intake: IV 150 Oral 120 360 Output: Urine 360 Hemodialysis 1700 Other: # Voids 1 1 - Exam - Constitutional General appearance: average body habitus, disheveled - EENT Eyes: PERRLA Ears: bilateral: normal - Neck Neck: normal ROM Carotids: bilateral: upstroke normal Thyroid: bilateral: normal size - Respiratory Respiratory: bilateral: diminished - Cardiovascular Rhythm: regular Heart sounds: normal: S1, S2 - Gastrointestinal General gastrointestinal: normal bowel sounds, soft - Integumentary Integumentary: decreased turgor - Neurologic Neurologic: CNII-XII intact - Musculoskeletal Musculoskeletal: generalized weakness, strength equal bilaterally - Psychiatric Psychiatric: A&O x's 3, appropriate affect - Labs CBC & Chem 7: 12/09/19 06:41 12/09/19 15:32 Labs: Abnormal Lab Results - Last 24 Hours (Table) 12/08/19 12/08/19 12/09/19 Range/Units 16:42 20:08 06:12 WBC (3.8-10.6) k/uL RBC (4.30-5.90) m/uL Hgb (13.0-17.5) gm/dL Hct (39.0-53.0) % MCV (80.0-100.0) fL Neutrophils # (1.3-7.7) k/uL Lymphocytes # (1.0-4.8) k/uL Sodium (137-145) mmol/L Potassium (3.5-5.1) mmol/L Chloride (98-107) mmol/L BUN (9-20) mg/dL Creatinine (0.66-1.25) mg/dL Glucose (74-99) mg/dL POC Glucose (mg/dL) 121 H 133 H 124 H (75-99) mg/dL 12/09/19 12/09/19 12/09/19 Range/Units 06:41 06:41 11:46 WBC 11.8 H (3.8-10.6) k/uL RBC 2.94 L (4.30-5.90) m/uL Hgb 9.5 L (13.0-17.5) gm/dL Hct 29.9 L (39.0-53.0) % MCV 101.8 H (80.0-100.0) fL Neutrophils # 10.9 H (1.3-7.7) k/uL Lymphocytes # 0.5 L (1.0-4.8) k/uL Sodium 131 L (137-145) mmol/L Potassium 6.3 H* (3.5-5.1) mmol/L Chloride 94 L (98-107) mmol/L BUN 101 H* (9-20) mg/dL Creatinine 7.22 H* (0.66-1.25) mg/dL Glucose 106 H (74-99) mg/dL POC Glucose (mg/dL) 119 H (75-99) mg/dL Microbiology - Last 24 Hours (Table) 12/08/19 13:15 Gram Stain - Preliminary Bronchoalviolar Lavage - Right Bronchial Washings Culture - Preliminary 12/08/19 13:15 Acid Fast Bacilli Culture - Preliminary Bronchoalviolar Lavage - Right 12/08/19 13:15 Fungal Culture - Preliminary Bronchoalviolar Lavage - Right 12/06/19 06:49 Blood Culture - Preliminary Blood No Growth after 72 hours 12/07/19 05:46 Blood Culture - Preliminary Blood No Growth after 48 hours 12/04/19 06:02 Blood Culture Gram Stain - Final Blood Blood Culture - Final Methicillin resist S. aureus Assessment and Plan Assessment: Endobronchial mucous plug status post suctioning and pulmonary toilet and removal Thoracic/abdominal aortitis likely seeding of MRSA Right lower lobe developing pneumonia Acute COPD exacerbation Tracheobronchitis MRSA bacteremia cluster source not clear May be related to line or endocarditis further recommendation per ID service Severe degree of degenerative joint disease of spine Right lower extremity pain Chronic renal failure stage V on hemodialysis Plan: Bronchoscopy with pulmonary findings reviewed Appreciate vascular disease consultation and recommendation Agree with continuation of daptomycin, appears to be working finally last 2 blood cultures have been negative Repeat blood cultures results reviewed Appreciated infectious disease evaluation Continue breathing treatments, steroids Hemodialysis as planned Deep breathing exercise incentive spirometry Further plan of care as per clinical response of the patient Time with Patient: Greater than 30
[2019-12-09 16:39] LABS: Hepatitis B Surface AB- Quant 249.9 mIU/mL; Hepatitis B Surface Antibody Reactive (Non-Reactive)
[2019-12-09 16:47] LABS: Glucose,Whole Blood 103 mg/dL (75-99)
--- NOTE | 2019-12-09 17:20 | PN ---
PROGRESS NOTE DATE OF SERVICE: 12/09/2019 REASON FOR FOLLOWUP: MRSA bacteremia likely secondary to aortitis. INTERVAL HISTORY: The patient is currently afebrile. The patient is breathing comfortably. The patient is status post bronchoscopy this morning. The patient tolerated the procedure. No chest pain, shortness of breath or cough. No abdominal pain or any worsening back pain. PHYSICAL EXAMINATION: Blood pressure 151/69, pulse of 61, temperature 98.4. He is 95% on room air. General description is a middle-aged male lying in bed in no distress. RESPIRATORY SYSTEM: Unlabored breathing. Clear to auscultation anteriorly. HEART: S1, S2. Regular rate and rhythm. ABDOMEN: Soft. No tenderness. LABS: Hemoglobin 9.5, white count 11.8, creatinine 7.22. DIAGNOSTIC IMPRESSION AND PLAN: Patient with methicillin-resistant Staphylococcus aeruginosa bacteremia, possibly aortitis; no other obvious clinical focus of infection. The patient's blood cultures are negative from 12/05 and 12/07/2019. Plan at this time is to continue with daptomycin for a total of 6 weeks with weekly monitoring of CBC and BMP, sedimentation rate and continue supportive care. MMODL / IJN: [id number] /
[2019-12-09 20:27] LABS: Glucose,Whole Blood 123 mg/dL (75-99)
[2019-12-10 06:04] LABS: Glucose,Whole Blood 116 mg/dL (75-99)
[2019-12-10] MEDS: PANTOPRAZOLE 40 MG TABLET PO SCH ×2 (06:17→17:12)
[2019-12-10] MEDS: LEVOTHYROXINE 75 MCG TAB PO SCH (06:17)
[2019-12-10] MEDS: AURYXIA PO SCH ×3 (06:17→17:10)
[2019-12-10] MEDS: INSULIN ASPART (NovoLOG) 100 UNIT/ML VIAL SQ SCH ×4 (06:17→20:07)
[2019-12-10] MEDS: SEVELAMER 800 MG TAB PO SCH ×3 (06:17→17:09)
[2019-12-10] MEDS: CARVEDILOL 12.5 MG TAB PO SCH ×2 (06:17→17:07)
[2019-12-10] MEDS: IPRATROPIUM-ALBUTEROL 3 ML NEB INHALATION SCH ×4 (08:12→20:46)
[2019-12-10] MEDS: NICOTINE 21MG/24HR PATCH TRANSDERM SCH (09:23)
[2019-12-10] MEDS: ENOXAPARIN 30 MG/0.3 ML SYRINGE SQ SCH (09:23)
[2019-12-10] MEDS: methylPREDNISolone SOD SUCCI 40 MG/ML 1 ML VIAL IV SCH ×2 (09:23→17:08)
[2019-12-10] MEDS: HYDROmorphone 0.5 MG/0.5 ML SYRINGE IVP PRN ×3 (09:24→22:56)
[2019-12-10] MEDS: ALLOPURINOL 100 MG TAB PO SCH (09:24)
[2019-12-10] MEDS: MAGNESIUM OXIDE 400 MG TAB PO SCH (09:24)
[2019-12-10] MEDS: CITALOPRAM HYDROBROMIDE 20 MG TAB PO SCH (09:24)
[2019-12-10] MEDS: ASPIRIN 81 MG PO SCH (09:24)
[2019-12-10] MEDS: amLODIPine 2.5 MG TAB PO SCH (09:24)
[2019-12-10] MEDS: busPIRone HCl 10 MG TAB PO SCH ×2 (09:24→20:07)
--- NOTE | 2019-12-10 10:17 | P.PN ---
Subjective Patient is seen in follow-up for end-stage renal disease. He is maintained on hemodialysis on Saturday schedule. He has a right upper extremity AV fistula. Patient is on IV antibiotics for MRSA bacteremia. Patient denies any complaints. He is eager to be discharged. Underwent bronchoscopy on December 07 which did not reveal any masses however extensive plugs and secretions were removed. Tolerated hemodialysis well yesterday. Vital signs are stable. General: The patient appeared well nourished and normally developed. HEENT: Head exam is unremarkable. Neck is without jugular venous distension. LUNGS: Lungs are clear to auscultation and percussion. Breath sounds decreased. HEART: Rate and Rhythm are regular. ABDOMEN: Abdominal exam reveals normal bowel sounds. Non-tender and non- distended. EXTREMITITES: No clubbing, cyanosis, or edema. Objective - Vital Signs Vital signs: Vital Signs Temp 97.9 F 12/10/19 08:00 Pulse 60 12/10/19 08:30 Resp 16 12/10/19 08:00 BP 152/68 12/10/19 08:00 Pulse Ox 94 L 12/10/19 08:00 Intake & Output 12/09/19 12/10/19 12/10/19 18:59 06:59 18:59 Intake Total 600 240 Output Total 1700 0 Balance -1100 0 240 Weight 79.5 kg Intake: Oral 600 240 Output: Urine 0 Hemodialysis 1700 Other: # Voids 2 - Labs CBC & Chem 7: 12/09/19 06:41 12/09/19 15:32 Labs: Abnormal Lab Results - Last 24 Hours (Table) 12/09/19 12/09/19 12/09/19 Range/Units 09:45 11:46 16:46 POC Glucose (mg/dL) 119 H 103 H (75-99) mg/dL Hep Bs Antibody Reactive H (Non-Reactive) 12/09/19 12/10/19 Range/Units 20:25 06:03 POC Glucose (mg/dL) 123 H 116 H (75-99) mg/dL Hep Bs Antibody (Non-Reactive) Microbiology - Last 24 Hours (Table) 12/06/19 06:49 Blood Culture - Preliminary Blood No Growth after 96 hours 12/07/19 05:46 Blood Culture - Preliminary Blood No Growth after 72 hours 12/08/19 13:15 Acid Fast Bacilli Smear - Final Bronchoalviolar Lavage - Right Acid Fast Bacilli Culture - Preliminary 12/08/19 14:45 Blood Culture - Preliminary Blood No Growth after 24 hours 12/08/19 13:15 Gram Stain - Preliminary Bronchoalviolar Lavage - Right Bronchial Washings Culture - Preliminary 12/08/19 13:15 Fungal Culture - Preliminary Bronchoalviolar Lavage - Right 12/04/19 06:02 Blood Culture Gram Stain - Final Blood Blood Culture - Final Methicillin resist S. aureus Assessment and Plan Plan: Assessment: 1. End-stage renal disease maintained on hemodialysis on Saturday schedule via right upper extremity AV fistula. 2. Persistent MRSA bacteremia. Unclear source. Maintained on IV antibiotics. WBC scan negative. ?aortitis. ?vegetation. Status post bronchoscopy in December 07 with removal of secretions and mucous plugs. 3. Hypertension with chronic kidney disease. Stable. 4. Chronic kidney disease mineral bone disease maintained on Renvela. 5. Hyponatremia secondary to chronic kidney disease. 6. Anemia of chronic kidney disease. Maintained on Aranesp. 7. Hyperkalemia secondary to chronic kidney disease. Improved postdialysis. Patient does have chronic hyperkalemia and is maintained on veltassa outpatient. Plan: Check potassium level today. Plan for hemodialysis tomorrow. Anticipate discharge soon.
[2019-12-10 11:12] LABS: Glucose,Whole Blood 105 mg/dL (75-99)
[2019-12-10 12:44] VITALS: BMI 25.1
--- NOTE | 2019-12-10 13:56 | CDI ---
Documentation Clarification Form Date: 12/10/2019 01:29:45 PM From: Elsa Jeronimo RN CCDS Admit Date: 11/30/2019 04:36:00 AM Patient Name: Jordan Boogie Visit Number: [id number] Discharge Date: ATTENTION: The Clinical Documentation Specialists (CDI) and [facility] Coding Staff appreciate your assistance in clarifying documentation. Please respond to the clarification below the line at the bottom and electronically sign. The CDI & [facility] Coding staff will review the response and follow-up if needed. Please note: Queries are made part of the Legal Health Record. If you have any questions, please contact the author of this message via ITS. Dr. Leroy Vogt The patient presented with the following respiratory symptoms severe shortness of breath. History/Risk Factors: 59-year-old male with a medical history of COPD, CHF, HTN and smokes a pack a day for close to 37 years per H&P 11/29. Tobacco use: 11/29 H&P chronic nicotine dependence patient cigarette smoker. Clinical Indicators: Per ED report 12/09 - Hypoxia complicated by COPD and CHF multifactorial respiratory failure. Vital signs: 11/29 02:57- 120/95 72 101.1 30 SpO2 83% room air, 03:10 SpO2 88% 4L nasal cannula, 11/29 14:00 Spo2 96% 4L nasal cannula, 11/30 04:00 SpO2 92% 4L nasal cannula, 12/01 16:00 SpO2 94% room air Lung/Breathing assessment: 11/29 H&P Respiratory rate increased, decreased breath sounds some wheezing. Treatment: 11/29 Solumedrol IV q 8Hr dc 12/02 Breathing tx 11/29 Ventolin PRN, Duoneb Scheduled QID, O2/Vent/BiPap In your professional opinion, can you please clarify if these findings signify one of the following conditions? Acute Respiratory Failure Acute Respiratory Insufficiency Other Diagnosis, please specify Unable to determine Specificity: If known, further specify (if known): With hypercapnia? (pCO2 >50 and pH <7.35) With hypoxia? (pO2 <60 mm Hg or SpO2 <91% on room air) (Last Query Form Revision: March 2019) Acute hypoxic respiratory failure MTDD
[2019-12-10 16:46] LABS: Glucose,Whole Blood 138 mg/dL (75-99)
--- NOTE | 2019-12-10 17:25 | P.PN ---
Progress Note - Text Progress Note Date: 12/10/19 Chief Complaint: Fever History of presenting complaint: This is a 59-year-old patient of Dr. Srini Hastings. Chronic stable medical conditions include end-stage kidney disease on hemodialysis Saturday and Saturday with the right arm fistula, anxiety, COPD, minimal bone disease, congestive heart failure EF 50%, coronary artery disease and left below elbow amputation. Patient's presents with symptoms of increasing pain in the right lower extremity starting off in the right lower back going on for over 6-7 days. Having a difficult to walk. Patient is also noted to have fevers has a chronic cough is an active smoker. Some baseline shortness of breath he states. Admitted for the same. Patient stated that about a week ago he and his brother bought a bowstring and to use the area to sit up and down quite a bit. And aspirin the pain started. Admitted with-pneumonia, severe lower back right SI joint pain.-Described as being ruled out, COPD exacerbation. Blood cultures positive for Staphylococcus aureus. Started on cefepime. IV Solu-Medrol. Bronchodilators. IV vancomycin. Repeat blood cultures are growing staph aureus. MRI of the spine was unremarkable. Computed tomography scan of the thoracic aorta-showed distal thoracic saccular and abdominal aortic aneurysm 4.4 cm with intermittently changes and eccentric wall thickening suggestive of otitis/vascular this. Occlusion of the right femoral artery. Gallstones. Patient has felt to be having MRSA bacteremia secondary to Aortitis. Patient also went bronchoscopy with lavage by Dr. Jacinta De Guzman. Today-. Laying in bed. Feeling better. Temperature tired. Breathing is okay. Review of systems: Was done for constitutional, cardiovascular, GI, pulmonary. relevant finding as above Active Medications Acetaminophen (Tylenol Tab) 650 mg PO Q6HR PRN PRN Reason: Mild Pain or Fever > 100.5 Last Admin: 12/09/19 05:33 Dose: 650 mg Documented by: Hydrocodone Bitart/Acetaminophen ([place] 5-325) 1 each PO Q4HR PRN PRN Reason: Pain Al Hydroxide/Mg Hydroxide (Maalox) 15 ml PO Q6HR PRN PRN Reason: Indigestion Last Admin: 12/02/19 11:03 Dose: 15 ml Documented by: Albuterol Sulfate (Ventolin Nebulized) 2.5 mg INHALATION RT-Q4H PRN PRN Reason: Shortness Of Breath Or Wheezing Albuterol/Ipratropium (Duoneb 0.5 Mg-3 Mg/3 Ml Soln) 3 ml INHALATION RT-QID [facility] Last Admin: 12/10/19 15:49 Dose: 3 ml Documented by: Allopurinol (Zyloprim) 100 mg PO QAM [facility] Last Admin: 12/10/19 09:24 Dose: 100 mg Documented by: Alprazolam (Xanax) 0.25 mg PO Q6HR PRN PRN Reason: Anxiety Last Admin: 12/09/19 02:38 Dose: 0.25 mg Documented by: Amlodipine Besylate (Norvasc) 2.5 mg PO DAILY [facility] Last Admin: 12/10/19 09:24 Dose: 2.5 mg Documented by: Aspirin (Aspirin) 81 mg PO DAILY [facility] Last Admin: 12/10/19 09:24 Dose: 81 mg Documented by: Buspirone HCl (Buspar) 20 mg PO BID [facility] Last Admin: 12/10/19 09:24 Dose: 20 mg Documented by: Calcium Carbonate/Glycine (Tums) 1,000 mg PO Q4HR PRN PRN Reason: Dyspepsia Carvedilol (Coreg) 12.5 mg PO AC-BID [facility] Last Admin: 12/10/19 17:07 Dose: 12.5 mg Documented by: Citalopram Hydrobromide (Celexa) 20 mg PO QAM [facility] Last Admin: 12/10/19 09:24 Dose: 20 mg Documented by: Darbepoetin Han (Aranesp) 40 mcg SQ Q7D [facility] Last Admin: 12/06/19 13:30 Dose: 40 mcg Documented by: Enoxaparin Sodium (Lovenox) 30 mg SQ DAILY [facility] Last Admin: 12/10/19 09:23 Dose: 30 mg Documented by: Hydralazine HCl (Apresoline) 10 mg IVP Q4HR PRN PRN Reason: Blood Pressure - High Hydromorphone HCl (Dilaudid) 0.5 mg IVP Q4HR PRN PRN Reason: Pain Last Admin: 12/10/19 17:13 Dose: 0.5 mg Documented by: Daptomycin 650 mg/ Sodium (Chloride) 50 mls @ 100 mls/hr IVPB Q48H [facility]; Protocol Last Admin: 12/09/19 20:17 Dose: Not Given Documented by: Insulin Aspart (Novolog) 0 unit SQ ACHS [facility]; Protocol Last Admin: 12/10/19 16:59 Dose: Not Given Documented by: Lactulose (Cephulac) 20 gm PO DAILY PRN PRN Reason: Constipation Levothyroxine Sodium (Synthroid) 75 mcg PO 0630 [facility] Last Admin: 12/10/19 06:17 Dose: 75 mcg Documented by: Magnesium Oxide (Mag-Ox) 400 mg PO DAILY [facility] Last Admin: 12/10/19 09:24 Dose: 400 mg Documented by: Melatonin (Melatonin) 3 mg PO HS PRN PRN Reason: Insomnia Methylprednisolone Sodium Succinate (Solu-Medrol) 20 mg IV Q8HR [facility] Last Admin: 12/10/19 17:08 Dose: 20 mg Documented by: Miscellaneous Information (Pneumonia Protocol Utilized) 1 each PO ONCE PRN PRN Reason: Per Protocol Naloxone HCl (Narcan) 0.2 mg IV Q2M PRN PRN Reason: Opioid Reversal Nicotine (Habitrol 21mg/24hr Patch) 1 patch TRANSDERM DAILY [facility] Last Admin: 12/10/19 09:23 Dose: 1 patch Documented by: Patient's Own ( (Auryxia 3 Tab)) 3 tab PO TID-W/MEALS [facility] Last Admin: 12/10/19 17:10 Dose: Not Given Documented by: Ondansetron HCl (Zofran) 4 mg IVP Q8HR PRN PRN Reason: Nausea And Vomiting Pantoprazole Sodium (Protonix) 40 mg PO AC-BID [facility] Last Admin: 12/10/19 17:12 Dose: 40 mg Documented by: Sevelamer Carbonate (Renvela) 800 mg PO TID-W/MEALS [facility] Last Admin: 12/10/19 17:09 Dose: Not Given Documented by: Physical examination: VITAL SIGNS: 97.8, 63, 20, 150/71, recent percent on room air GENERAL: Propped up in bed, more comfortable. EYES: Pupils equal. Conjunctiva normal. HEENT: External appearance of nose and ears normal, oral cavity grossly normal. NECK: JVD not raised; masses not palpable. HEART: First and second heart sounds are normal; no edema. LUNGS: Respiratory rate increased, decreased breath sounds EXTREMITY: Left arm below elbow amputation. ABDOMEN: Soft, nontender, liver spleen not palpable, no masses palpable. PSYCH: Alert and oriented x3; mood and affect normal. INVESTIGATIONS, reviewed in the clinical context: White count 11.8 hemoglobin 9.5 bun 101 creatinine 7.22 Bronchial washings growing Aspergillus species and Carito albicans Blood cultures positive from December 01, December 02, December 03, December 04,-positive for MRSA. Blood cultures from December 06-negative with staph aureus Previous testing White count 10.6 hemoglobin 10.5 platelets 235 sodium 126 potassium 3.8 bun 60 creatinine 10.5 Ferritin 2237, CRP 418, pro calcitonin 3.9 Chest x-ray film personally reviewed by me-shows infiltrates EKG tracing personally reviewed by me-sinus rhythm and nonspecific T-wave changes Thoracolumbar lumbar CT spine-multilevel DJD changes no acute findings Thoracolumbar spine x-ray DJD changes Lumbar spine MRI shows disc bulging at the L5-S1 side. And some DJD changes COVID-19 PCR-not detected, 2-D,-moderate concentric LVH, EF 50-55% Assessment: - pneumonia with sepsis. POA -Blood cultures positive for MRSA secondary to Aortitis -Acute COPD exacerbation in a current smoker, improving -Chronic nicotine dependence patient cigarette smoker -Right-sided sciatica Orthopedics consulted -Coronary artery disease -Congestive heart failure EF not known -GERD -Hyperlipidemia -Essential hypertension -End-stage kidney disease on hemodialysis Saturday and Saturday -Hypothyroid -Hypertensive heart disease -Hyperkalemia secondary to renal failure -Chronic left arm below elbow amputation Plan: We'll change the patient to oral prednisone. Continue to the IV daptomycin. Patient looking to go home after hemodialysis with antibiotics to be given following hemodialysis as outpatient.
[2019-12-10] MEDS ORDERED: predniSONE 20 MG TAB PO SCH (17:30)
[2019-12-10 18:13] LABS: Potassium 4.6 mmol/L (3.5-5.1)
[2019-12-10 19:57] LABS: Glucose,Whole Blood 144 mg/dL (75-99)
--- NOTE | 2019-12-10 22:04 | P.PN ---
Subjective Progress Note Date: 12/10/19 Principal diagnosis: Persistent bacteremia due to MRSA with positive second blood culture as well Right lower lobe developing pneumonia Acute COPD exacerbation Tracheobronchitis Gram-positive bacteremia cluster source not clear Severe degree of degenerative joint disease of spine, Right lower extremity pain Chronic renal failure stage V on hemodialysis November 2017, patient seen eval reexamined during the rounds labs reviewed medications reviewed care plan discussed with the patient respiratory status remains stable denies any chest pain, overall complaining of sinus headaches and pain nonspecific, bronchial washings positive for Carito as well as Aspergillus likely non-pathogens, , sodium is slightly 129 potassium is normalized, BUN/creatinine is 45/3.74, 12/09/2019, patient sitting upright in the bed breathing comfortably does complain of chronic aches and pains, breathing is much better after the bronchoscopy resection and pulmonary toilet and done an mucus plugging removed, patient has been evaluated by vascular surgery agree with diagnoses of aortitis but however no abscess is present they recommend to observe the patient closely, patient has received hemodialysis today, bronchial washings culture have been reviewed results are pending, last to set of blood cultures have been negative so far 12/08/2019, patient seen eval examined during the rounds labs reviewed medications reviewed, is still have intermittent cough and congestion nonproductive mostly, patient has finally 7th blood culture growing no growth so far prior 6 of them have been positive for MRSA, patient is scheduled for bronchoscopy and possible biopsy later on today procedure has been explained to the patient and the family at length 12/07/2019, he shouldn't seen eval examined during the rounds labs reviewed medications reviewed computed tomography scan finding reviewed the patient as well as his brother brine, procedure have been explained to the patient patient is scheduled for bronchoscopy tomorrow 12/06/2019, patient seen eval examined during the rounds labs reviewed medications reviewed, PT scan of the chest abdominal and pelvis findings have been noted likely associated with mucus plugging, however endobronchial mass cannot be excluded, patient will need bronchoscopy will schedule for 12/08/2019Saturday12/05/2019, patient seen and evaluated examined labs reviewed medications reviewed patient has persistent bacteremia. 4 and blood culture has been posi tive for MRSA indicating likely intravascular either a dialysis catheter or endocarditis likely however thoracic spine issue on discitis still cannot be excluded diuresis cardiovascular services are following 12/04/2019, patient seen and evaluated examined during the rounds labs reviewed medications reviewed care plan discussed with patient, echocardiogram shows ejection fraction of 55% with some basal ocean abnormalities no valvular dysfunction has been noted, awaiting WBC scan, patient has been room air breathing comfortably 12/03/2019, labs reviewed medications reviewed respiratory status able, patient renal functions have slightly improved with dialysis, on room air his oxygen saturation 92%, respiratory status continued to improve, ID services following 12/02/2019, patient seen eval reexamined during the rounds labs reviewed medications reviewed care plan discussed, patient's respiratory standpoint has been very good however her cultures remain positive for MRSA, ID services maría eng looking for the source of infection 12/01/2019, patient seen eval reexamined during the rounds labs reviewed medications reviewed shortness of breath and cough has been improved significan tly patient has some pain in the spine with radiation to right leg, patient has been evaluated by infectious disease services and MRI of the thoracic spine has been ordered, to rule out discitis, white cell count is normal, patient is being followed by renal services for hemodialysis, This is a 59-year-old male with prior medical history of chronic renal failure on hemodialysis patient came into the hospital with for 5 day history of progressive back pain and neck pain, he was noted to be tachypneic as well as febrile up to 101 chest x-ray shows developing right lower lobe infiltrate the blood cultures are positive for gram-positive cocci in clusters patient likely is having sepsis due to gram-positive cocci source however is not clear with a component of COPD exacerbation as well and possibly right-sided pneumonia, patient's has significant history of congestive heart failure COPD dyslipidemia hypertension hypertensive cardiovascular disease and 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, CT of lumbar spine shows DJD and Doppler study results are pending, besides having leg pain no other numbness or weakness are present she does have ongoing shortness of breath intermittent cough just mostly nonproductive Objective - Vital Signs Vital signs: Vital Signs Temp 98.0 F 12/10/19 20:04 Pulse 58 L 12/10/19 21:01 Resp 16 12/10/19 20:04 BP 151/74 12/10/19 20:04 Pulse Ox 93 L 12/10/19 20:04 Intake & Output 12/10/19 12/10/19 12/11/19 06:59 18:59 06:59 Intake Total 720 240 Output Total 0 1400 Balance 0 -680 240 Weight 79.5 kg 79.5 kg Intake: Oral 720 240 Output: Urine 0 Hemodialysis 1400 Other: # Voids 2 2 - Exam - Constitutional General appearance: average body habitus, disheveled - EENT Eyes: PERRLA Ears: bilateral: normal - Neck Neck: normal ROM Carotids: bilateral: upstroke normal Thyroid: bilateral: normal size - Respiratory Respiratory: bilateral: diminished - Cardiovascular Rhythm: regular Heart sounds: normal: S1, S2 - Gastrointestinal General gastrointestinal: normal bowel sounds, soft - Integumentary Integumentary: decreased turgor - Neurologic Neurologic: CNII-XII intact - Musculoskeletal Musculoskeletal: generalized weakness, strength equal bilaterally - Psychiatric Psychiatric: A&O x's 3, appropriate affect - Labs CBC & Chem 7: 12/09/19 06:41 12/10/19 17:48 Labs: Abnormal Lab Results - Last 24 Hours (Table) 12/10/19 12/10/19 12/10/19 Range/Units 06:03 10:36 11:11 Sodium (137-145) mmol/L Potassium 6.0 H (3.5-5.1) mmol/L Chloride (98-107) mmol/L BUN (9-20) mg/dL Creatinine (0.66-1.25) mg/dL Glucose (74-99) mg/dL POC Glucose (mg/dL) 116 H 105 H (75-99) mg/dL 12/10/19 12/10/19 12/10/19 Range/Units 16:45 17:48 19:56 Sodium 129 L (137-145) mmol/L Potassium (3.5-5.1) mmol/L Chloride 93 L (98-107) mmol/L BUN 45 H (9-20) mg/dL Creatinine 3.74 H (0.66-1.25) mg/dL Glucose 126 H (74-99) mg/dL POC Glucose (mg/dL) 138 H 144 H (75-99) mg/dL Microbiology - Last 24 Hours (Table) 12/08/19 14:45 Blood Culture - Preliminary Blood No Growth after 48 hours 12/08/19 13:15 Gram Stain - Preliminary Bronchoalviolar Lavage - Right Bronchial Washings Culture - Preliminary Carito albicans Aspergillus species 12/06/19 06:49 Blood Culture - Preliminary Blood No Growth after 96 hours 12/07/19 05:46 Blood Culture - Preliminary Blood No Growth after 72 hours 12/08/19 13:15 Acid Fast Bacilli Smear - Final Bronchoalviolar Lavage - Right Acid Fast Bacilli Culture - Preliminary Assessment and Plan Assessment: Endobronchial mucous plug status post suctioning and pulmonary toilet and removal, cultures are positive for Carito as well as Aspergillus likely nonpathogenic Thoracic/abdominal aortitis likely seeding of MRSA bacteremia Right lower lobe pneumonia Acute COPD exacerbation Tracheobronchitis MRSA bacteremia cluster source not clear May be related to line or endocarditis further recommendation per ID service Severe degree of degenerative joint disease of spine Right lower extremity pain Chronic renal failure stage V on hemodialysis Plan: Bronchoscopy with pulmonary findings and culture results and reports reviewed Appreciate vascular disease consultation and recommendation Agree with continuation of daptomycin, appears to be working finally last 2 blood cultures have been negative, patient likely will require a PICC line Repeat blood cultures results reviewed Appreciated infectious disease evaluation Continue breathing treatments, steroids Hemodialysis as planned Deep breathing exercise incentive spirometry Further plan of care as per clinical response of the patient Time with Patient: Greater than 30
--- NOTE | 2019-12-10 23:25 | PN ---
PROGRESS NOTE DATE OF SERVICE: 12/10/2019 REASON FOR FOLLOWUP: MRSA bacteremia secondary to aortitis. INTERVAL HISTORY: The patient is currently afebrile. The patient is breathing comfortably. Denies having any chest pain or shortness of breath or cough. No nausea or vomiting. No abdominal pain or diarrhea. PHYSICAL EXAMINATION: Blood pressure 151/74 with a pulse of 58, temperature 98. He is 93% on room air. General description is a middle-aged male lying in bed in no distress. RESPIRATORY SYSTEM: Unlabored breathing. Clear to auscultation anteriorly. HEART: S1, S2. Regular rate and rhythm. ABDOMEN: Soft. No tenderness. LABS: Creatinine 3.74. Blood culture repeat has been negative so far. DIAGNOSTIC IMPRESSION AND PLAN: Patient with methicillin-resistant Staphylococcus aeruginosa bacteremia, source likely aortitis. No other clinical focus. The patient did have extensive workup. Plan at this time is to continue the patient on daptomycin. Currently waiting for the outpatient antibiotic arrangement. Apparently the patient is not able to afford the cost of the outpatient daptomycin. Antibiotic may be switched to vancomycin, though that needs to be monitored closely. Continue with supportive care. MMODL / IJN: [id number] /
[2019-12-11 06:14] LABS: Glucose,Whole Blood 107 mg/dL (75-99)
[2019-12-11] MEDS: INSULIN ASPART (NovoLOG) 100 UNIT/ML VIAL SQ SCH ×2 (06:17→12:22)
[2019-12-11] MEDS: CARVEDILOL 12.5 MG TAB PO SCH (06:18)
[2019-12-11] MEDS: SEVELAMER 800 MG TAB PO SCH ×2 (06:18→12:18)
[2019-12-11] MEDS: AURYXIA PO SCH ×2 (06:18→12:22)
[2019-12-11] MEDS: PANTOPRAZOLE 40 MG TABLET PO SCH (06:18)
[2019-12-11] MEDS: LEVOTHYROXINE 75 MCG TAB PO SCH (06:18)
[2019-12-11] MEDS: HYDROmorphone 0.5 MG/0.5 ML SYRINGE IVP PRN (08:10)
[2019-12-11] MEDS: IPRATROPIUM-ALBUTEROL 3 ML NEB INHALATION SCH ×2 (08:11→12:00)
[2019-12-11] MEDS ORDERED: predniSONE 20 MG TAB PO SCH (09:00)
--- NOTE | 2019-12-11 11:06 | P.PN ---
Subjective Progress Note Date: 12/11/19 Principal diagnosis: Persistent bacteremia due to MRSA with positive second blood culture as well Right lower lobe developing pneumonia Acute COPD exacerbation Tracheobronchitis Gram-positive bacteremia cluster source not clear Severe degree of degenerative joint disease of spine, Right lower extremity pain Chronic renal failure stage V on hemodialysis 12/11/2019, patient seen and evaluated examined during the rounds labs reviewed medications reviewed, bronchoscopy finding reviewed, blood culture status have been reviewed patient tolerating antibiotics well continue to get hemodialysis, respiratory status remains stable, 93% on room air December 10, 2019 patient seen eval reexamined during the rounds labs reviewed medications reviewed care plan discussed with the patient respiratory status remains stable denies any chest pain, overall complaining of sinus headaches and pain nonspecific, bronchial washings positive for Carito as well as Aspergillus likely non-pathogens, , sodium is slightly 129 potassium is normalized, BUN/creatinine is 45/3.74, 12/09/2019, patient sitting upright in the bed breathing comfortably does complain of chronic aches and pains, breathing is much better after the bronchoscopy resection and pulmonary toilet and done an mucus plugging removed, patient has been evaluated by vascular surgery agree with diagnoses of aortitis but however no abscess is present they recommend to observe the patient closely, patient has received hemodialysis today, bronchial washings culture have been reviewed results are pending, last to set of blood cultures have been negative so far 12/08/2019, patient seen eval examined during the rounds labs reviewed medications reviewed, is still have intermittent cough and congestion nonproductive mostly, patient has finally 7th blood culture growing no growth so far prior 6 of them have been positive for MRSA, patient is scheduled for bronchoscopy and possible biopsy later on today procedure has been explained to the patient and the family at length 12/07/2019, he shouldn't seen eval examined during the rounds labs reviewed medications reviewed computed tomography scan finding reviewed the patient as well as his brother brine, procedure have been explained to the patient patient is scheduled for bronchoscopy tomorrow 12/06/2019, patient seen eval examined during the rounds labs reviewed me dications reviewed, PT scan of the chest abdominal and pelvis findings have been noted likely associated with mucus plugging, however endobronchial mass cannot be excluded, patient will need bronchoscopy will schedule for 12/08/2019Saturday12/05/2019, patient seen and evaluated examined labs reviewed medications reviewed patient has persistent bacteremia. 4 and blood culture has been positive for MRSA indicating likely intravascular either a dialysis catheter or endocarditis likely however thoracic spine issue on discitis still cannot be excluded diuresis cardiovascular services are following 12/04/2019, patient seen and evaluated examined during the rounds labs reviewed medications reviewed care plan discussed with patient, echocardiogram shows ejection fraction of 55% with some basal ocean abnormalities no valvular dysfunction has been noted, awaiting WBC scan, patient has been room air breathing comfortably 12/03/2019, labs reviewed medications reviewed respiratory status able, patient renal functions have slightly improved with dialysis, on room air his oxygen saturation 92%, respiratory status continued to improve, ID services following 12/02/2019, patient seen eval reexamined during the rounds labs reviewed medications reviewed care plan discussed, patient's respiratory standpoint has been very good however her cultures remain positive for MRSA, ID services following no looking for the source of infection 12/01/2019, patient seen eval reexamined during the rounds labs reviewed medications reviewed shortness of breath and cough has been improved significantly patient has some pain in the spine with radiation to right leg, patient has been evaluated by infectious disease services and MRI of the thoracic spine has been ordered, to rule out discitis, white cell count is normal, patient is being followed by renal services for hemodialysis, This is a 59-year-old male with prior medical history of chronic renal failure on hemodialysis patient came into the hospital with for 5 day history of progressive back pain and neck pain, he was noted to be tachypneic as well as febrile up to 101 chest x-ray shows developing right lower lobe infiltrate the blood cultures are positive for gram-positive cocci in clusters patient likely is having sepsis due to gram-positive cocci source however is not clear with a component of COPD exacerbation as well and possibly right-sided pneumonia, patient's has significant history of congestive heart failure COPD dyslipidemia hypertension hypertensive cardiovascular disease and 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, CT of lumbar spine shows DJD and Doppler study results are pending, besides having leg pain no other numbness or weakness are present she does have ongoing shortness of breath intermittent cough just mostly nonproductive Objective - Vital Signs Vital signs: Vital Signs Temp 98.4 F 12/11/19 03:57 Pulse 54 L 12/11/19 03:57 Resp 17 12/11/19 03:57 BP 173/79 12/11/19 03:57 Pulse Ox 93 L 12/11/19 03:57 Intake & Output 12/10/19 12/11/19 12/11/19 18:59 06:59 18:59 Intake Total 720 240 Output Total 1400 600 Balance -680 -360 Weight 79.5 kg 79.8 kg Intake: Oral 720 240 Output: Urine 600 Hemodialysis 1400 Other: # Voids 2 - Exam - Constitutional General appearance: average body habitus, disheveled - EENT Eyes: PERRLA Ears: bilateral: normal - Neck Neck: normal ROM Carotids: bilateral: upstroke normal Thyroid: bilateral: normal size - Respiratory Respiratory: bilateral: diminished - Cardiovascular Rhythm: regular Heart sounds: normal: S1, S2 - Gastrointestinal General gastrointestinal: normal bowel sounds, soft - Integumentary Integumentary: decreased turgor - Neurologic Neurologic: CNII-XII intact - Musculoskeletal Musculoskeletal: generalized weakness, strength equal bilaterally - Psychiatric Psychiatric: A&O x's 3, appropriate affect - Labs CBC & Chem 7: 12/09/19 06:41 12/10/19 17:48 Labs: Abnormal Lab Results - Last 24 Hours (Table) 12/10/19 12/10/19 12/10/19 Range/Units 10:36 11:11 16:45 Sodium (137-145) mmol/L Potassium 6.0 H (3.5-5.1) mmol/L Chloride (98-107) mmol/L BUN (9-20) mg/dL Creatinine (0.66-1.25) mg/dL Glucose (74-99) mg/dL POC Glucose (mg/dL) 105 H 138 H (75-99) mg/dL 12/10/19 12/10/19 12/11/19 Range/Units 17:48 19:56 06:13 Sodium 129 L (137-145) mmol/L Potassium (3.5-5.1) mmol/L Chloride 93 L (98-107) mmol/L BUN 45 H (9-20) mg/dL Creatinine 3.74 H (0.66-1.25) mg/dL Glucose 126 H (74-99) mg/dL POC Glucose (mg/dL) 144 H 107 H (75-99) mg/dL Microbiology - Last 24 Hours (Table) 12/06/19 06:49 Blood Culture - Preliminary Blood No Growth after 120 hours 12/07/19 05:46 Blood Culture - Preliminary Blood No Growth after 96 hours 12/08/19 14:45 Blood Culture - Preliminary Blood No Growth after 48 hours 12/08/19 13:15 Gram Stain - Preliminary Bronchoalviolar Lavage - Right Bronchial Washings Culture - Preliminary Carito albicans Aspergillus species Assessment and Plan Assessment: Endobronchial mucous plug status post suctioning and pulmonary toilet and removal, cultures are positive for Carito as well as Aspergillus likely nonpathogenic Thoracic/abdominal aortitis likely seeding of MRSA bacteremia Right lower lobe pneumonia Acute COPD exacerbation Tracheobronchitis MRSA bacteremia cluster source aortic aneurysm/mycotic aneurysm Severe degree of degenerative joint disease of spine Right lower extremity pain Chronic renal failure stage V on hemodialysis Plan: Bronchoscopy with pulmonary findings and culture results and reports reviewed Appreciate vascular disease consultation and recommendation Agree with continuation of daptomycin, appears to be working finally last 2 blood cultures have been negative, patient likely will require a PICC line and long-term antibiotics prior to any definitive management of mycotic aneurysm as per vascular surgery Repeat blood cultures results reviewed Appreciated infectious disease evaluation Continue breathing treatments, steroids Hemodialysis as planned Deep breathing exercise incentive spirometry Further plan of care as per clinical response of the patient Time with Patient: Greater than 30
[2019-12-11 11:42] LABS: Glucose,Whole Blood 117 mg/dL (75-99)
[2019-12-11] MEDS: ASPIRIN 81 MG PO SCH (12:18)
[2019-12-11] MEDS: ALLOPURINOL 100 MG TAB PO SCH (12:18)
[2019-12-11] MEDS: amLODIPine 2.5 MG TAB PO SCH (12:18)
[2019-12-11] MEDS: busPIRone HCl 10 MG TAB PO SCH (12:19)
[2019-12-11] MEDS: CITALOPRAM HYDROBROMIDE 20 MG TAB PO SCH (12:19)
[2019-12-11] MEDS: ENOXAPARIN 30 MG/0.3 ML SYRINGE SQ SCH (12:19)
[2019-12-11] MEDS: MAGNESIUM OXIDE 400 MG TAB PO SCH (12:19)
[2019-12-11] MEDS: NICOTINE 21MG/24HR PATCH TRANSDERM SCH (12:20)
[2019-12-11 12:25] VITALS: BP 118/61; PULSE 59; RESP 18; TEMP 97.9
--- NOTE | 2019-12-11 13:13 | P.PN ---
Subjective Patient is seen in follow-up for end-stage renal disease. He is maintained on hemodialysis on Saturday schedule. He has a right upper extremity AV fistula. Patient is on IV antibiotics for MRSA bacteremia. Patient denies any complaints. He is eager to be discharged. Underwent bronchoscopy on December 07 which did not reveal any masses however extensive plugs and secretions were removed. Tolerated hemodialysis well yesterday and this morning. Vital signs are stable. General: The patient appeared well nourished and normally developed. HEENT: Head exam is unremarkable. Neck is without jugular venous distension. LUNGS: Lungs are clear to auscultation and percussion. Breath sounds decreased. HEART: Rate and Rhythm are regular. ABDOMEN: Abdominal exam reveals normal bowel sounds. Non-tender and non- distended. EXTREMITITES: No clubbing, cyanosis, or edema. Objective - Vital Signs Vital signs: Vital Signs Temp 97.9 F 12/11/19 12:23 Pulse 59 L 12/11/19 12:23 Resp 18 12/11/19 12:23 BP 118/61 12/11/19 12:23 Pulse Ox 93 L 12/11/19 03:57 Intake & Output 12/10/19 12/11/19 12/11/19 18:59 06:59 18:59 Intake Total 720 240 Output Total 1862 176 4811 Balance -680 -360 -2200 Weight 79.5 kg 79.8 kg Intake: Oral 720 240 Output: Urine 600 Hemodialysis 1400 2200 Other: # Voids 2 - Labs CBC & Chem 7: 12/09/19 06:41 12/10/19 17:48 Labs: Abnormal Lab Results - Last 24 Hours (Table) 12/10/19 12/10/19 12/10/19 Range/Units 16:45 17:48 19:56 Sodium 129 L (137-145) mmol/L Chloride 93 L (98-107) mmol/L BUN 45 H (9-20) mg/dL Creatinine 3.74 H (0.66-1.25) mg/dL Glucose 126 H (74-99) mg/dL POC Glucose (mg/dL) 138 H 144 H (75-99) mg/dL 12/11/19 12/11/19 Range/Units 06:13 11:41 Sodium (137-145) mmol/L Chloride (98-107) mmol/L BUN (9-20) mg/dL Creatinine (0.66-1.25) mg/dL Glucose (74-99) mg/dL POC Glucose (mg/dL) 107 H 117 H (75-99) mg/dL Microbiology - Last 24 Hours (Table) 12/08/19 13:15 Fungal Culture - Preliminary Bronchoalviolar Lavage - Right Carito albicans 12/08/19 13:15 Gram Stain - Final Bronchoalviolar Lavage - Right Bronchial Washings Culture - Final Carito albicans Aspergillus fumigatus 12/06/19 06:49 Blood Culture - Preliminary Blood No Growth after 120 hours 12/07/19 05:46 Blood Culture - Preliminary Blood No Growth after 96 hours 12/08/19 14:45 Blood Culture - Preliminary Blood No Growth after 48 hours Assessment and Plan Plan: Assessment: 1. End-stage renal disease maintained on hemodialysis on Saturday schedule via right upper extremity AV fistula. 2. Persistent MRSA bacteremia. Unclear source. Maintained on IV antibiotics. WBC scan negative. ?aortitis. ?vegetation. Status post bronchoscopy in December 07 with removal of secretions and mucous plugs. 3. Hypertension with chronic kidney disease. Stable. 4. Chronic kidney disease mineral bone disease maintained on Renvela. 5. Hyponatremia secondary to chronic kidney disease. 6. Anemia of chronic kidney disease. Maintained on Aranesp. 7. Hyperkalemia secondary to chronic kidney disease. Improved postdialysis. Patient does have chronic hyperkalemia and is maintained on veltassa outpatient. Clearance adequate as pre-BUN 101, post BUn 45. Plan: Next hemodialysis on Saturday. Maintain Veltassa outpatient. Antibiotics per infectious disease. IV daptomycin to be continued with dialys is. Stable for discharge home from nephrology standpoint.
--- NOTE | 2019-12-11 15:02 | PN ---
PROGRESS NOTE DATE OF SERVICE: 12/11/2019 REASON FOR FOLLOWUP: MRSA bacteremia likely aortitis. INTERVAL HISTORY: The patient is currently afebrile. The patient is breathing comfortably. Denies having any chest pain. No shortness of breath or cough. No nausea, no vomiting. No abdominal pain, no diarrhea. PHYSICAL EXAMINATION: Blood pressure 118/61 with a pulse of 59, temperature 97.9. He is 93% on room air. General description is a middle-aged male, lying in bed in no distress. RESPIRATORY SYSTEM: Unlabored breathing, clear to auscultation anteriorly/ HEART: S1, S2. Regular rate and rhythm. ABDOMEN: Soft, no tenderness. LABS: Last CRP was 265, prior to that was 418, . Blood cultures 12/05 negative as well as 26. DIAGNOSTIC IMPRESSION/PLAN: Patient with MRSA bacteremia, source likely aortitis. Patient at this time to continue with daptomycin, post each dialysis for a total of 6 weeks with weekly monitoring of CBC, BMP and sedimentation rate. Follow up in the office in one week and continue supportive care. MMODL / IJN: [id number] /
--- NOTE | 2019-12-11 23:06 | P.DS ---
Providers Date of admission: 11/30/19 04:36 Expected date of discharge: 12/11/19 Attending physician: Leroy Vogt Consults: 11/30/19 04:36 Consult Physician Routine Consulting Provider: Edel Vázquez Consult Reason/Comments: HD Do you want consulting provider notified?: Yes 11/30/19 09:28 Consult Physician Urgent Consulting Provider: Thee Kinney Consult Reason/Comments: leg pain Do you want consulting provider notified?: Already Contacted 11/30/19 17:29 Consult Physician Routine Consulting Provider: Thompson De Guzman Consult Reason/Comments: pneumonia Do you want consulting provider notified?: Yes 11/30/19 17:30 Consult Physician Routine Consulting Provider: Nuria Roberts Consult Reason/Comments: Sepsis Do you want consulting provider notified?: Yes 12/04/19 15:35 Consult Physician Routine Consulting Provider: Tito Delatorre Consult Reason/Comments: RICO-recurrent pos blood culture Do you want consulting provider notified?: Yes 12/08/19 16:05 Consult Physician Routine Consulting Provider: Javi Bautista Consult Reason/Comments: Infection of abdominal aorta aneurysm Do you want consulting provider notified?: Yes 12/08/19 17:26 Consult Physician Routine Consulting Provider: Memo Sahu Consult Reason/Comments: Infected thorasic abdominal aneurysm Do you want consulting provider notified?: Yes Primary care physician: Srini Hastings [facility] Course: Chief Complaint: Fever History of presenting complaint: This is a 59-year-old patient of Dr. Srini Hastings. Chronic stable medical conditions include end-stage kidney disease on hemodialysis Saturday and Saturday with the right arm fistula, anxiety, COPD, minimal bone disease, congestive heart failure EF 50%, coronary artery disease and left below elbow amputation. Patient's presents with symptoms of increasing pain in the right lower extremity starting off in the right lower back going on for over 6-7 days. Having a difficult to walk. Patient is also noted to have fevers has a chronic cough is an active smoker. Some baseline shortness of breath he states. Admitted for the same. Patient stated that about a week ago he and his brother bought a bowstring and to use the area to sit up and down quite a bit. And aspirin the pain started. Admitted with-pneumonia, severe lower back right SI joint pain.-Described as being ruled out, COPD exacerbation. Blood cultures positive for Staphylococcus aureus. Started on cefepime. IV Solu-Medrol. Bronchodilators. IV vancomycin. Repeat blood cultures are growing staph aureus. MRI of the spine was unremarkable. Computed tomography scan of the thoracic aorta-showed distal thoracic saccular and abdominal aortic aneurysm 4.4 cm with intermittently changes and eccentric wall thickening suggestive of otitis/vascular this. Occlusion of the right femoral artery. Gallstones. Patient has felt to be having MRSA bacteremia secondary to Aortitis. Patient also went bronchoscopy with lavage by Dr. Jacinta De Guzman. Today-. Getting hemodialysis today. Pain well controlled. Breathing is stable. Care was discussed with the patient. Being discharge and IV daptomycin for a total of 6 weeks post each dialysis. Discussion and discharge planning more than 35 minutes Consultants: Dr. Awad from nephrology Dr. Mackay from ID Dr. Jacinta De Guzman from pulmonary Physical examination: VITAL SIGNS: 97.9, 59, 18, 118/61, 94% room air GENERAL: Propped up in bed, more comfortable. EYES: Pupils equal. Conjunctiva normal. HEENT: External appearance of nose and ears normal, oral cavity grossly normal. NECK: JVD not raised; masses not palpable. HEART: First and second heart sounds are normal; no edema. LUNGS: Respiratory rate increased, decreased breath sounds EXTREMITY: Left arm below elbow amputation. ABDOMEN: Soft, nontender, liver spleen not palpable, no masses palpable. PSYCH: Alert and oriented x3; mood and affect normal. INVESTIGATIONS, reviewed in the clinical context: White count 11.8 hemoglobin 9.5 bun 101 creatinine 7.22 Bronchial washings growing Aspergillus species and Carito albicans Blood cultures positive from December 01, December 02, December 03, December 04,-positive for MRSA. Blood cultures from December 06-negative with staph aureus Previous testing White count 10.6 hemoglobin 10.5 platelets 235 sodium 126 potassium 3.8 bun 60 creatinine 10.5 Ferritin 2237, CRP 418, pro calcitonin 3.9 Chest x-ray film personally reviewed by me-shows infiltrates EKG tracing personally reviewed by me-sinus rhythm and nonspecific T-wave changes Thoracolumbar lumbar CT spine-multilevel DJD changes no acute findings Thoracolumbar spine x-ray DJD changes Lumbar spine MRI shows disc bulging at the L5-S1 side. And some DJD changes COVID-19 PCR-not detected, 2-D,-moderate concentric LVH, EF 50-55% Assessment: - pneumonia with sepsis. POA -Blood cultures positive for MRSA secondary to Aortitis, POA -Acute COPD exacerbation in a current smoker, improving -Chronic nicotine dependence patient cigarette smoker -Right-sided sciatica Orthopedics consulted -Coronary artery disease -Congestive heart failure EF not known -GERD -Hyperlipidemia -Essential hypertension -End-stage kidney disease on hemodialysis Saturday and Saturday -Hypothyroid -Hypertensive heart disease -Hyperkalemia secondary to renal failure -Chronic left arm below elbow amputation Disposition: Home Patient Condition at Discharge: Stable Plan - Discharge Summary Discharge Rx Participant: No New Discharge Prescriptions: New DAPTOmycin [Cubicin] 650 mg IV Q48H #21 bag Ipratropium-Albuterol Nebulize [Duoneb 0.5 mg-3 mg/3 ml Soln] 3 ml INHALATION TID #90 ml Nicotine 21Mg/24Hr Patch [Habitrol] 1 patch TRANSDERM DAILY #14 patch Melatonin 3 mg PO HS PRN tablet PRN Reason: Insomnia predniSONE 10 mg PO DAILY #30 tab Sevelamer [Renvela] 800 mg PO TID-W/MEALS #90 tab Continue Citalopram Hydrobromide [CeleXA] 20 mg PO QAM Aspirin EC [Ecotrin Low Dose] 81 mg PO DAILY Levothyroxine Sodium [Synthroid] 75 mcg PO DAILY Magnesium Oxide [Mag-Ox] 400 mg PO DAILY Allopurinol [Zyloprim] 100 mg PO QAM Atorvastatin [Lipitor] 80 mg PO HS #30 tab Carvedilol [Coreg*] 12.5 mg PO AC-BID #60 tab Auryxia 3 tab PO TID-W/MEALS Famotidine [Pepcid] 20 mg PO QAM busPIRone HCl [Buspar] 20 mg PO BID Albuterol Inhaler [Ventolin Hfa Inhaler] 2 puff INHALATION RT-Q6H PRN PRN Reason: Shortness Of Breath Auryxia 1 - 2 tab PO BID PRN PRN Reason: snacks Vitamin D2 (Unknown Strength) 1 tab PO DAILY@12 Changed amLODIPine [Norvasc] 5 mg PO QAM #0 Discontinued Furosemide [Lasix] 80 mg PO BID No Action hydrALAZINE HCL [Apresoline] 25 mg PO TID #90 tab Discharge Medication List Allopurinol [Zyloprim] 100 mg PO QAM 01/16/18 [History] Aspirin EC [Ecotrin Low Dose] 81 mg PO DAILY 01/16/18 [History] Citalopram Hydrobromide [CeleXA] 20 mg PO QAM 01/16/18 [History] Levothyroxine Sodium [Synthroid] 75 mcg PO DAILY 01/16/18 [History] Magnesium Oxide [Mag-Ox] 400 mg PO DAILY 01/16/18 [History] Atorvastatin [Lipitor] 80 mg PO HS #30 tab 01/29/18 [Rx] Carvedilol [Coreg*] 12.5 mg PO AC-BID #60 tab 01/30/18 [Rx] Auryxia 3 tab PO TID-W/MEALS 03/31/18 [History] hydrALAZINE HCL [Apresoline] 25 mg PO TID #90 tab 04/01/18 [Rx] Albuterol Inhaler [Ventolin Hfa Inhaler] 2 puff INHALATION RT-Q6H PRN 11/30/19 [History] Auryxia 1 - 2 tab PO BID PRN 11/30/19 [History] Famotidine [Pepcid] 20 mg PO QAM 11/30/19 [History] Vitamin D2 (Unknown Strength) 1 tab PO DAILY@12 11/30/19 [History] busPIRone HCl [Buspar] 20 mg PO BID 11/30/19 [History] DAPTOmycin [Cubicin] 650 mg IV Q48H #21 bag 12/09/19 [Rx] Ipratropium-Albuterol Nebulize [Duoneb 0.5 mg-3 mg/3 ml Soln] 3 ml INHALATION TID #90 ml 12/11/19 [Rx] Melatonin 3 mg PO HS PRN tablet 12/11/19 [Rx] Nicotine 21Mg/24Hr Patch [Habitrol] 1 patch TRANSDERM DAILY #14 patch 12/11/19 [Rx] Sevelamer [Renvela] 800 mg PO TID-W/MEALS #90 tab 12/11/19 [Rx] amLODIPine [Norvasc] 5 mg PO QAM #0 12/11/19 [Rx] predniSONE 10 mg PO DAILY #30 tab 12/11/19 [Rx] Follow up Appointment(s)/Referral(s): Juarez Edmondson DO [Doctor of Osteopathic Medicine] - 4 Weeks (please call and make appointment ) Srini Hastings MD [Primary Care Provider] - 1-2 days (please call to make an appointment ) Thompson De Guzman MD [STAFF PHYSICIAN] - 12/23/19 12:30 pm Nuria Roberts MD [STAFF PHYSICIAN] - 12/21/19 2:00 pm Ambulatory/Diagnostic Orders: Basic Metabolic Panel [LAB.AMB] Location: None Selected C Reactive Protein [LAB.AMB] Location: None Selected Complete Blood Count w/diff [LAB.AMB] Location: None Selected Erythrocyte Sedimentation Rate [LAB.AMB] Location: None Selected Miscellaneous Lab Order [LAB.AMB] Location: None Selected Patient Instructions/Handouts: Bacterial Pneumonia (DC) Activity/Diet/Wound Care/Special Instructions: Resume dialysis as your normal schedule, M,W,F @5 a.m. - you will get your antibiotics at dialysis starting Saturday12/14/[address] roberts Discharge Disposition: HOME SELF-CARE
== END 2019-12-11 14:24 | disposition home or self-care (01) | DRG 871 ==
LOC: EC 02:50 → 3SCARD 04:36
PROVIDERS: ADMIT Hospitalist; ATTEND Hospitalist
PROC: 5A1D70Z Performance of Urinary Filtration, Intermittent, Less than 6 Hours Per Day (ICD-10-PCS; 2019-11-30)
PROC: 0B9F8ZX Drainage of Right Lower Lung Lobe, Via Natural or Artificial Opening Endoscopic, Diagnostic (ICD-10-PCS; principal; 2019-12-08 12:30)
PROC: 0BC68ZZ Extirpation of Matter from Right Lower Lobe Bronchus, Via Natural or Artificial Opening Endoscopic (ICD-10-PCS; principal; 2019-12-08 12:30)
DX: A41.02 Sepsis due to Methicillin resistant Staphylococcus aureus (principal); J18.9 Pneumonia, unspecified organism; J96.01 Acute respiratory failure with hypoxia; N18.6 End stage renal disease; E87.1 Hypo-osmolality and hyponatremia; I13.2 Hypertensive heart and chronic kidney disease with heart failure and with stage 5 chronic kidney disease, or end stage renal disease; I42.9 Cardiomyopathy, unspecified; I50.32 Chronic diastolic (congestive) heart failure; J44.0 Chronic obstructive pulmonary disease with (acute) lower respiratory infection; J44.1 Chronic obstructive pulmonary disease with (acute) exacerbation; N17.9 Acute kidney failure, unspecified; I27.20 Pulmonary hypertension, unspecified; D63.1 Anemia in chronic kidney disease; I70.0 Atherosclerosis of aorta; I70.201 Unspecified atherosclerosis of native arteries of extremities, right leg; I71.4 Abdominal aortic aneurysm, without rupture; I77.6 Arteritis, unspecified; E03.9 Hypothyroidism, unspecified; E78.5 Hyperlipidemia, unspecified; Z20.828 Contact with and (suspected) exposure to other viral communicable diseases; E87.5 Hyperkalemia; M51.37 Other intervertebral disc degeneration, lumbosacral region; F17.210 Nicotine dependence, cigarettes, uncomplicated; F41.9 Anxiety disorder, unspecified; I25.10 Atherosclerotic heart disease of native coronary artery without angina pectoris; K21.9 Gastro-esophageal reflux disease without esophagitis; K80.20 Calculus of gallbladder without cholecystitis without obstruction; M54.31 Sciatica, right side; M89.8X9 Other specified disorders of bone, unspecified site; M41.9 Scoliosis, unspecified; Z79.82 Long term (current) use of aspirin; Z79.890 Hormone replacement therapy; Z79.899 Other long term (current) drug therapy; Z88.0 Allergy status to penicillin; Z86.14 Personal history of Methicillin resistant Staphylococcus aureus infection; Z89.212 Acquired absence of left upper limb below elbow; Z99.2 Dependence on renal dialysis; Z95.5 Presence of coronary angioplasty implant and graft; Z82.49 Family history of ischemic heart disease and other diseases of the circulatory system; Z83.3 Family history of diabetes mellitus; Z84.1 Family history of disorders of kidney and ureter
CPT/HCPCS: 31624; 36415; 71045; 71250; 71275; 72110; 72128; 72131; 72158; 74174; 74176; 80048; 80053; 80202; 82565; 82728; 83605; 83615; 83735; 83880; 84132; 84145; 85025; 85379; 85610; 85652; 85730; 86038; 86140; 86255; 86431; 86706; 87040; 87070; 87077; 87102; 87116; 87186; 87205; 87206; 87252; 87340; 87496; 87498; 87502; 87529; 87634; 87635; 87798; 88108; 88305; 90935; 93005; 93306; 93970; 94640; 96361; 96365; 96366; 96367; 96372; 96375; 99291

== ENCOUNTER 2020-02-02 12:00 | Emergency (ER) | payer MEDICARE, BC ==
[2020-02-02] MEDS ORDERED: NALOXONE 0.4 MG/ML 1 ML VIAL IV PRN (12:03)
[2020-02-02 12:21] VITALS: TEMP 98.5
[2020-02-02 12:24] LABS: Glucose,Whole Blood 106 mg/dL (75-99)
[2020-02-02] MEDS ORDERED: ESMOLOL IN SODIUM CHLORIDE PMX 2.5 GM in SALINE 1 250ML.BAG IV ONE (12:30)
[2020-02-02 12:34] LABS: Basophils % (A) 1 %; Eosinophils # (A) 0.7 k/uL (0-0.7); Eosinophils % (A) 11 %; HCT 33.1 % (39.0-53.0); HGB 10.7 gm/dL (13.0-17.5); Hypochromasia Slight; Lymphocytes # (A) 0.7 k/uL (1.0-4.8); Lymphocytes % (A) 12 %; MCH 31.7 pg (25.0-35.0); MCHC 32.1 g/dL (31.0-37.0); MCV 98.6 fL (80.0-100.0); Mean Platelet Volume 7.5; Monocytes # (A) 0.3 k/uL (0-1.0); Monocytes % (A) 5 %; Neutrophils # (A) 4.3 k/uL (1.3-7.7); Neutrophils % (A) 71 %; Platelet Count 339 k/uL (150-450); RBC 3.36 m/uL (4.30-5.90); RDW 14.3 % (11.5-15.5); WBC 6.1 k/uL (3.8-10.6)
--- NOTE | 2020-02-02 12:45 | ED ---
General Adult HPI - General Chief complaint: Recheck/Abnormal Lab/Rx Stated complaint: aneurysm Time Seen by Provider: 02/02/20 12:01 Source: patient, EMS, RN notes reviewed, old records reviewed Mode of arrival: EMS Limitations: no limitations - History of Present Illness Initial comments: 59-year-old male presenting from outpatient CT with evidence of enlarging aortic aneurysm. Patient has history of previous aortic aneurysm with associated aortitis. He's been on antibiotics with hemodialysis. He has a history of end- stage renal disease and receives hemodialysis Saturday was a Saturday. He received hemodialysis yesterday. He went from outpatient CT this morning and had CT angiography of the thorax which revealed a 7.1 cm aortic aneurysm which has enlarged from 4.4 on 12/07. Patient denies any pain complaints. Denies nausea vomiting or diarrhea. Denies fever. Denies chest pain or dyspnea. Denies any lower extremity numbness or tingling. - Related Data Home Medications Medication Instructions Recorded Confirmed Aspirin EC [Ecotrin Low Dose] 81 mg PO DAILY 01/16/18 12/02/19 Citalopram Hydrobromide [CeleXA] 20 mg PO QAM 01/16/18 12/02/19 Levothyroxine Sodium [Synthroid] 75 mcg PO DAILY 01/16/18 12/02/19 Magnesium Oxide [Mag-Ox] 400 mg PO DAILY 01/16/18 12/02/19 allopurinoL [Zyloprim] 100 mg PO QAM 01/16/18 12/02/19 Auryxia 3 tab PO TID-W/MEALS 03/31/18 12/02/19 Albuterol Inhaler [Ventolin Hfa 2 puff INHALATION RT-Q6H PRN 11/30/19 12/02/19 Inhaler] Auryxia 1 - 2 tab PO BID PRN 11/30/19 12/02/19 Famotidine [Pepcid] 20 mg PO QAM 11/30/19 12/02/19 Vitamin D2 (Unknown Strength) 1 tab PO DAILY@12 11/30/19 12/02/19 busPIRone HCl [Buspar] 20 mg PO BID 11/30/19 12/02/19 Previous Rx's Medication Instructions Recorded Atorvastatin [Lipitor] 80 mg PO HS #30 tab 01/29/18 carvediloL [Coreg*] 12.5 mg PO AC-BID #60 tab 01/30/18 hydrALAZINE HCL [Apresoline] 25 mg PO TID #90 tab 04/01/18 DAPTOmycin [Cubicin] 650 mg IV Q48H #21 bag 12/09/19 Ipratropium-Albuterol Nebulize 3 ml INHALATION TID #90 ml 12/11/19 [Duoneb 0.5 mg-3 mg/3 ml Soln] Melatonin 3 mg PO HS PRN tablet 12/11/19 Nicotine 21Mg/24Hr Patch [Habitrol] 1 patch TRANSDERM DAILY #14 patch 12/11/19 Sevelamer [Renvela] 800 mg PO TID-W/MEALS #90 tab 12/11/19 amLODIPine [Norvasc] 5 mg PO QAM #0 12/11/19 predniSONE 10 mg PO DAILY #30 tab 12/11/19 Allergies Allergy/AdvReac Type Severity Reaction Status Date / Time Penicillins Allergy Unknown Verified 12/02/19 10:04 Childhood Review of Systems ROS Statement: Those systems with pertinent positive or pertinent negative responses have been documented in the HPI. ROS Other: All systems not noted in ROS Statement are negative. Past Medical History Past Medical History: Coronary Artery Disease (CAD), Heart Failure, COPD, GERD/Reflux, Hyperlipidemia, Hypertension, Renal Disease, Thyroid Disorder Additional Past Medical History / Comment(s): Chronic kidney failure with hemodialysis on Saturday, Saturday and Fridays with last time being 03/28/18, chronic anemia, cardiomyopathy, c"blood clot in my heart years ago", hypothyroid, post op I&D L submax abscess pt had respiratory failure and was vented. 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 Past Anesthesia/Blood Transfusion Reactions: No Reported Reaction Additional Past Anesthesia/Blood Transfusion Reaction / Comment(s): Pt has received blood without reaction. Past Psychological History: No Psychological Hx Reported Past Alcohol Use History: None Reported Past Drug Use History: None Reported - Past Family History Father Family Medical History: Diabetes Mellitus, Hypertension, Renal Disease Additional Family Medical History / Comment(s): Father was on hemodialysis Mother Family Medical History: Hypertension General Exam Limitations: no limitations General appearance: alert, in no apparent distress Head exam: Present: atraumatic, normocephalic Eye exam: Present: normal appearance, PERRL ENT exam: Present: normal exam Neck exam: Present: normal inspection. Absent: tenderness, meningismus Respiratory exam: Present: normal lung sounds bilaterally. Absent: respiratory distress, wheezes Cardiovascular Exam: Present: regular rate, normal rhythm GI/Abdominal exam: Present: soft, distended, pulsatile mass. Absent: tenderness, guarding, rebound Extremities exam: Present: other (Left arm amputation, right upper extremity AV graft) Neurological exam: Present: alert, oriented X3, CN II-XII intact. Absent: motor sensory deficit Course Vital Signs 02/02/20 02/02/20 02/02/20 12:12 12:43 12:51 Temperature 98.5 F Pulse Rate 81 76 74 Respiratory 18 14 14 Rate Blood Pressure 140/66 150/69 152/76 O2 Sat by Pulse 96 94 L 98 Oximetry 02/02/20 12:53 Temperature 98.5 F Pulse Rate 72 Respiratory 18 Rate Blood Pressure 152/76 O2 Sat by Pulse 97 Oximetry - Reevaluation(s) Reevaluation #1: 02/02/20 12:[address] Koehler prior to arrival inform me of CT findings. I discussed case with Dr. Sahu upon arrival he will evaluate the patient in the ICU, recommends esmolol infusion with goal blood pressure 100 systolic. 02/02/20 12:42 Dr. Sahu has reviewed the images and calls back to request that the patient be transferred to [facility] as this aneurysm is above the celiac artery. Reevaluation #2: 02/02/20 12:43 Case discussed with transfer team at [facility], Dr. Rodriguez will accept patient for urgent surgical evaluation. Pt will be transported by EMS. EKG Findings - EKG Comments: EKG Findings:: EKG: Normal sinus rhythm, intraventricular block, rate of 81, ND interval 180, QRS duration 132, QTC 508 Medical Decision Making - Medical Decision Making 59-year-old male with history of aortitis and abdominal aortic aneurysm presenting with enlarging aneurysm on CT performed as an outpatient this morning. This shows a 7.1 cm aortic aneurysm. I discussed case with vascular surgery who recommend is no effusion in transfer. I discussed case with [facility] will accept the transfer. His vital signs are stable and he is agreeable with transfer. Laboratory study has been obtained and these results are pending at the time of this dictation. Hemoglobin is 10.7 which is improved from prior of 9.5. CT images will be sent with the patient, from both CT performed today 02/02/2020 and 12/08/2019. - Lab Data Result diagrams: 02/02/20 12:21 02/02/20 12:21 Lab Results 02/02/20 02/02/20 02/02/20 Range/Units 12:21 12: 12:21 WBC 6.1 (3.8-10.6) k/uL RBC 3.36 L (4.30-5.90) m/uL Hgb 10.7 L (13.0-17.5) gm/dL Hct 33.1 L (39.0-53.0) % MCV 98.6 (80.0-100.0) fL MCH 31.7 (25.0-35.0) pg MCHC 32.1 (31.0-37.0) g/dL RDW 14.3 (11.5-15.5) % Plt Count 339 (150-450) k/uL Neutrophils % 71 % Lymphocytes % 12 % Monocytes % 5 % Eosinophils % 11 % Basophils % 1 % Neutrophils # 4.3 (1.3-7.7) k/uL Lymphocytes # 0.7 L (1.0-4.8) k/uL Monocytes # 0.3 (0-1.0) k/uL Eosinophils # 0.7 (0-0.7) k/uL Basophils # 0.0 (0-0.2) k/uL Hypochromasia Slight PT 10.2 (9.0-12.0) sec INR 1.0 (<1.2) APTT 27.6 (22.0-30.0) sec Sodium 134 L (137-145) mmol/L Potassium 4.0 (3.5-5.1) mmol/L Chloride 94 L (98-107) mmol/L Carbon Dioxide 28 (22-30) mmol/L Anion Gap 12 mmol/L BUN 25 H (9-20) mg/dL Creatinine 5.77 H (0.66-1.25) mg/dL Est GFR (CKD-EPI)AfAm 11 (>60 ml/min/1.73 sqM) Est GFR (CKD-EPI)NonAf 10 (>60 ml/min/1.73 sqM) Glucose 103 H (74-99) mg/dL POC Glucose (mg/dL) (75-99) mg/dL POC Glu Electric Knife Operator ID Plasma Lactic Acid Victorino (0.7-2.0) mmol/L Calcium 10.0 (8.4-10.2) mg/dL Magnesium 2.1 (1.6-2.3) mg/dL Blood Type Blood Type Recheck Bld Type Recheck Status Antibody Screen Spec Expiration Date 02/02/20 02/02/20 02/02/20 Range/Units 12:21 12:21 12:23 WBC (3.8-10.6) k/uL RBC (4.30-5.90) m/uL Hgb (13.0-17.5) gm/dL Hct (39.0-53.0) % MCV (80.0-100.0) fL MCH (25.0-35.0) pg MCHC (31.0-37.0) g/dL RDW (11.5-15.5) % Plt Count (150-450) k/uL Neutrophils % % Lymphocytes % % Monocytes % % Eosinophils % % Basophils % % Neutrophils # (1.3-7.7) k/uL Lymphocytes # (1.0-4.8) k/uL Monocytes # (0-1.0) k/uL Eosinophils # (0-0.7) k/uL Basophils # (0-0.2) k/uL Hypochromasia PT (9.0-12.0) sec INR (<1.2) APTT (22.0-30.0) sec Sodium (137-145) mmol/L Potassium (3.5-5.1) mmol/L Chloride (98-107) mmol/L Carbon Dioxide (22-30) mmol/L Anion Gap mmol/L BUN (9-20) mg/dL Creatinine (0.66-1.25) mg/dL Est GFR (CKD-EPI)AfAm (>60 ml/min/1.73 sqM) Est GFR (CKD-EPI)NonAf (>60 ml/min/1.73 sqM) Glucose (74-99) mg/dL POC Glucose (mg/dL) 106 H (75-99) mg/dL POC Glu Electric Knife Operator ID Diana Hernandez Plasma Lactic Acid Victorino 0.9 (0.7-2.0) mmol/L Calcium (8.4-10.2) mg/dL Magnesium (1.6-2.3) mg/dL Blood Type AB Positive Blood Type Recheck AB Pos Bld Type Recheck Status No Antibody Screen NEGATIVE Spec Expiration Date 02/05/2020 - 2320 Critical Care Time Critical Care Time: Yes Total Critical Care Time: 35 Disposition Clinical Impression: Aortic aneurysm without rupture, Aortitis syndrome Disposition: OTHER INSTITUTION NOT DEFINED Condition: Serious Is patient prescribed a controlled substance at d/c from ED?: No Referrals: Srini Hastings MD [Primary Care Provider] - 1-2 days Time of Disposition: 12:38 - Out of Hospital Transfer - Req. Specs Out of Hospital Transfer - Requested Specifics: Other Emergency Center ([facility])
[2020-02-02 12:46] LABS: Partial Thromboplastin Time 27.6 sec (22.0-30.0); Prothrombin Time 10.2 sec (9.0-12.0)
[2020-02-02 12:49] LABS: Magnesium 2.1 mg/dL (1.6-2.3)
[2020-02-02 12:52] VITALS: BP 152/76
[2020-02-02 12:54] VITALS: PULSE 72; RESP 18
== END 2020-02-02 12:53 | disposition other institution (70) ==
LOC: EC 12:00
DX: I71.9 Aortic aneurysm of unspecified site, without rupture (principal); M31.4 Aortic arch syndrome [Takayasu]; I25.10 Atherosclerotic heart disease of native coronary artery without angina pectoris; I50.9 Heart failure, unspecified; K21.9 Gastro-esophageal reflux disease without esophagitis; J44.9 Chronic obstructive pulmonary disease, unspecified; I13.0 Hypertensive heart and chronic kidney disease with heart failure and stage 1 through stage 4 chronic kidney disease, or unspecified chronic kidney disease; Z99.2 Dependence on renal dialysis; Z79.82 Long term (current) use of aspirin; Z79.890 Hormone replacement therapy; Z79.899 Other long term (current) drug therapy; Z88.0 Allergy status to penicillin
CPT/HCPCS: 99291 ×2; 96365 ×2; 36415 ×2; 93005; 86900; 86901; 80048; 82565; 83605; 83735; 84520; 85025; 85610; 85730; 86850; 71275; Q9967

== ENCOUNTER → 2020-02-02 | Outpatient (CLI) | payer MEDICARE, BC ==
--- NOTE | 2020-02-02 11:05 | CT ---
EXAMINATION TYPE: CT angio chest DATE OF EXAM: 02/02/2020 COMPARISON: Prior CT dated 12/05/2019, 12/08/2019 HISTORY: Aortic aneurysm, aortitis CT DLP: 938 mGycm Automated exposure control for dose reduction was used. CONTRAST: CTA scan of the thorax is performed with IV Contrast, patient injected with 100 mL of Isovue 370, pul monary embolism protocol. MIP images are created and reviewed. 3D reconstructed images are created on an independent workstation and reviewed. FINDINGS: LUNGS: The lungs are grossly clear, there is no concerning parenchymal mass or nodule identified. T here are bilateral pleural effusions right greater than left, left effusion is new and right effusion is increased in size, minimal pericardial. Emphysematous changes are present within the lungs. AORTA: The previously identified aortic aneurysm has increased in size and now measures approximatel y 7.1 cm in transverse dimension. Some local fluid attenuation present adjacent to the aorta on axial image 68 in the retrocrural region similar to prior. MEDIASTINUM: There is satisfactory enhancement of the pulmonary artery and its branches, there is no CT evidence for pulmonary embolism. There are no greater than 1 cm hilar or mediastinal lymph nodes. No pericardial effusion is seen. There are coronary artery calcifications which are dense. There m ay be some left atrial dilation. There is reflux of contrast material into the inferior vena cava and hepatic veins suggesting right heart failure. OTHER: Probable changes of gynecomastia. Cystic changes again noted associated with the kidneys. Dep endent high attenuation consistent with gallstone within the gallbladder. IMPRESSION: AORTIC ANEURYSM, CONSIDER IMPENDING RUPTURE. THERE ARE BILATERAL PLEURAL EFFUSIONS AND POSSIBLE RIGHT HEART FAILURE. CORONARY ARTERY DISEASE. REPORT RELAYED TO DR. ACOSTA VIA PERFECT SERVE CONTACT. A Red level critical message alert has been initiated for Nuria Acosta MD via the [employer] Critical Results System on 02/02/2020 11:02 AM. This message alert has been sent to Nuria Acosta MD via the preferences provided by the clinician for the receipt of Radiology Critical Findings. Message ID [id number].
== END | disposition home or self-care (01) ==
LOC: RADCTMAIN 07:40
PROVIDERS: ATTEND Internal Medicine Infectious Disease
DX: I71.9 Aortic aneurysm of unspecified site, without rupture (principal); J90 Pleural effusion, not elsewhere classified; I25.10 Atherosclerotic heart disease of native coronary artery without angina pectoris; I77.6 Arteritis, unspecified; Z88.0 Allergy status to penicillin
CPT/HCPCS: 82565; 84520; 71275; 36415; Q9967

== ENCOUNTER 2020-02-22 04:33 | Observation (INO) | payer MEDICARE, BC ==
--- NOTE | 2020-02-22 05:28 | ED ---
Fall HPI - General Chief Complaint: Fall Stated Complaint: fall Time Seen by Provider: 02/22/20 04:58 Source: patient Mode of arrival: ambulatory - History of Present Illness Initial Comments: Jordan is a 59-year-old gentleman with multiple medical comorbidities most significant for end-stage renal disease on dialysis Saturday, patient missed dialysis Saturday due to inability to access his port. Patient reports he is feeling very weak over the weekend, he got up early this morning to go to his 4:30 AM dialysis was walking to the vehicle he became weak and fell striking the right side of his face on the ground. He did not lose consciousness. Patient came to the ER for evaluation of head injury. While in the emergency department the patient missed dialysis. - Related Data Home Medications Medication Instructions Recorded Confirmed Aspirin EC [Ecotrin Low Dose] 81 mg PO DAILY 01/16/18 12/02/19 Citalopram Hydrobromide [CeleXA] 20 mg PO QAM 01/16/18 12/02/19 Levothyroxine Sodium [Synthroid] 75 mcg PO DAILY 01/16/18 12/02/19 Magnesium Oxide [Mag-Ox] 400 mg PO DAILY 01/16/18 12/02/19 allopurinoL [Zyloprim] 100 mg PO QAM 01/16/18 12/02/19 Auryxia 3 tab PO TID-W/MEALS 03/31/18 12/02/19 Albuterol Inhaler [Ventolin Hfa 2 puff INHALATION RT-Q6H PRN 11/30/19 12/02/19 Inhaler] Auryxia 1 - 2 tab PO BID PRN 11/30/19 12/02/19 Famotidine [Pepcid] 20 mg PO QAM 11/30/19 12/02/19 Vitamin D2 (Unknown Strength) 1 tab PO DAILY@12 11/30/19 12/02/19 busPIRone HCl [Buspar] 20 mg PO BID 11/30/19 12/02/19 Previous Rx's Medication Instructions Recorded Atorvastatin [Lipitor] 80 mg PO HS #30 tab 01/29/18 carvediloL [Coreg*] 12.5 mg PO AC-BID #60 tab 01/30/18 hydrALAZINE HCL [Apresoline] 25 mg PO TID #90 tab 04/01/18 DAPTOmycin [Cubicin] 650 mg IV Q48H #21 bag 12/09/19 Ipratropium-Albuterol Nebulize 3 ml INHALATION TID #90 ml 12/11/19 [Duoneb 0.5 mg-3 mg/3 ml Soln] Melatonin 3 mg PO HS PRN tablet 12/11/19 Nicotine 21Mg/24Hr Patch [Habitrol] 1 patch TRANSDERM DAILY #14 patch 12/11/19 Sevelamer [Renvela] 800 mg PO TID-W/MEALS #90 tab 12/11/19 amLODIPine [Norvasc] 5 mg PO QAM #0 12/11/19 predniSONE 10 mg PO DAILY #30 tab 12/11/19 Allergies Allergy/AdvReac Type Severity Reaction Status Date / Time Penicillins Allergy Unknown Verified 02/22/20 04:43 Childhood Review of Systems ROS Statement: Those systems with pertinent positive or pertinent negative responses have been documented in the HPI. ROS Other: All systems not noted in ROS Statement are negative. Past Medical History Past Medical History: Coronary Artery Disease (CAD), Heart Failure, COPD, GERD/Reflux, Hyperlipidemia, Hypertension, Renal Disease, Thyroid Disorder Additional Past Medical History / Comment(s): Chronic kidney failure with hemodialysis on Saturday, Saturday and Fridays with last time being 03/28/18, chronic anemia, cardiomyopathy, c"blood clot in my heart years ago", hypothyroid, post op I&D L submax abscess pt had respiratory failure and was vented. 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 Past Anesthesia/Blood Transfusion Reactions: No Reported Reaction Additional Past Anesthesia/Blood Transfusion Reaction / Comment(s): Pt has received blood without reaction. Past Psychological History: No Psychological Hx Reported Smoking Status: Current every day smoker Past Alcohol Use History: None Reported Past Drug Use History: None Reported - Past Family History Father Family Medical History: Diabetes Mellitus, Hypertension, Renal Disease Additional Family Medical History / Comment(s): Father was on hemodialysis Mother Family Medical History: Hypertension General Exam - General Exam Comments Initial Comments: Physical Exam GENERAL: Chronically ill appearing gentleman HENT: Large abrasion of the right cheek EYES: PERRL, EOMI PULMONARY: Unlabored respirations. CARDIOVASCULAR: RRR ABDOMEN: Non-distended SKIN: Patient with chronic vascular disease : Deferred NEUROLOGIC: Alert and oriented Normal speech Normal gait MUSCULOSKELETAL: Left arm amputation PSYCHIATRIC: No SI/HI Limitations: no limitations Course Vital Signs 02/22/20 02/22/20 04:38 06:09 Temperature 98 F Pulse Rate 84 78 Respiratory 18 20 Rate Blood Pressure 148/90 116/72 O2 Sat by Pulse 95 Oximetry Medical Decision Making - Medical Decision Making Patient was seen and evaluated Primary survey airway breathing circulation intact Secondary survey with an abrasion to the face CT scans were ordered and revealed no acute findings Labs are consistent with a kidney disease Urgent care was discussed with nephrology who recommended dialysis today, will arrange for dialysis today - Lab Data Result diagrams: 02/22/20 06:09 02/22/20 06:09 Lab Results 02/22/20 02/22/20 02/22/20 Range/Units 06:09 06:09 06:09 WBC 11.3 H (3.8-10.6) k/uL RBC 2.47 L (4.30-5.90) m/uL Hgb 7.2 L D (13.0-17.5) gm/dL Hct 23.6 L (39.0-53.0) % MCV 95.5 (80.0-100.0) fL MCH 29.3 (25.0-35.0) pg MCHC 30.7 L (31.0-37.0) g/dL RDW 16.2 H (11.5-15.5) % Plt Count 330 (150-450) k/uL Neutrophils % 79 % Lymphocytes % 7 % Monocytes % 5 % Eosinophils % 7 % Basophils % 1 % Neutrophils # 8.9 H (1.3-7.7) k/uL Lymphocytes # 0.8 L (1.0-4.8) k/uL Monocytes # 0.5 (0-1.0) k/uL Eosinophils # 0.8 H (0-0.7) k/uL Basophils # 0.1 (0-0.2) k/uL Hypochromasia Slight Anisocytosis Slight PT 10.3 (9.0-12.0) sec INR 1.0 (<1.2) APTT 33.1 H (22.0-30.0) sec Sodium 132 L (137-145) mmol/L Potassium 6.2 H* (3.5-5.1) mmol/L Chloride 95 L (98-107) mmol/L Carbon Dioxide 28 (22-30) mmol/L Anion Gap 9 mmol/L BUN 46 H (9-20) mg/dL Creatinine 8.41 H* (0.66-1.25) mg/dL Est GFR (CKD-EPI)AfAm 7 (>60 ml/min/1.73 sqM) Est GFR (CKD-EPI)NonAf 6 (>60 ml/min/1.73 sqM) Glucose 95 (74-99) mg/dL Calcium 9.5 (8.4-10.2) mg/dL Phosphorus 3.6 (2.5-4.5) mg/dL Magnesium 1.9 (1.6-2.3) mg/dL Total Bilirubin 0.6 (0.2-1.3) mg/dL AST 33 (17-59) U/L ALT 18 (4-49) U/L Alkaline Phosphatase 84 (38-126) U/L Total Protein 5.2 L (6.3-8.2) g/dL Albumin 2.9 L (3.5-5.0) g/dL Disposition Clinical Impression: Fall, ESRD (end stage renal disease) on dialysis Disposition: ADMITTED IP TO THIS [facility] Condition: Serious Is patient prescribed a controlled substance at d/c from ED?: No Referrals: Srini Hastings MD [Primary Care Provider] - 1-2 days
[2020-02-22] MEDS ORDERED: MORPHINE SULFATE 4 MG/ML SYRINGE IV STA (05:43)
--- NOTE | 2020-02-22 05:45 | CT ---
EXAMINATION TYPE: CT brain cspine wo con DATE OF EXAM: 02/22/2020 COMPARISON: CT brain 09/08/2011 HISTORY: Fall CT DLP: 1384 mGycm Automated exposure control for dose reduction was used. Ventricles have normal size. There is no mass effect nor midline shift. There is no sign of intracran ial hemorrhage. The calvarium is intact. There is no evidence of cerebral edema. Skull base is intact . Temporal bones appear normal. Mastoid sinuses appear normal. There is some straightening of the cervical spine. Disc spaces are fairly normal. There is minimal an terior spurring at C6-7. Facet joints are intact. Prevertebral soft tissues appear normal. There is apparent right pleural thickening at the right lung apex. There is probably bilateral pleura l effusions. IMPRESSION: Negative CT scan of the brain. No acute abnormality. There is some atrophy that has progressed compar ed to old exam. Negative CT scan cervical spine. Mild spurring at C6-7. No fracture.
[2020-02-22 06:14] LABS: Anisocytosis Slight; Basophils # (A) 0.1 k/uL (0-0.2); Basophils % (A) 1 %; Eosinophils # (A) 0.8 k/uL (0-0.7); Eosinophils % (A) 7 %; HCT 23.6 % (39.0-53.0); Hypochromasia Slight; Lymphocytes # (A) 0.8 k/uL (1.0-4.8); Lymphocytes % (A) 7 %; MCH 29.3 pg (25.0-35.0); MCHC 30.7 g/dL (31.0-37.0); MCV 95.5 fL (80.0-100.0); Mean Platelet Volume 7.6; Monocytes # (A) 0.5 k/uL (0-1.0); Monocytes % (A) 5 %; Neutrophils # (A) 8.9 k/uL (1.3-7.7); Neutrophils % (A) 79 %; Platelet Count 330 k/uL (150-450); RBC 2.47 m/uL (4.30-5.90); RDW 16.2 % (11.5-15.5); WBC 11.3 k/uL (3.8-10.6)
[2020-02-22 06:19] LABS: HGB 7.2 gm/dL (13.0-17.5)
[2020-02-22 06:26] LABS: Partial Thromboplastin Time 33.1 sec (22.0-30.0); Prothrombin Time 10.3 sec (9.0-12.0)
[2020-02-22 06:43] LABS: Albumin 2.9 g/dL (3.5-5.0); Calcium 9.5 mg/dL (8.4-10.2); Magnesium 1.9 mg/dL (1.6-2.3); Phosphorus 3.6 mg/dL (2.5-4.5); Total Bilirubin 0.6 mg/dL (0.2-1.3); Total Protein 5.2 g/dL (6.3-8.2)
[2020-02-22 06:51] LABS: Potassium 6.2 mmol/L (3.5-5.1)
[2020-02-22] MEDS ORDERED: NICOTINE 14MG/24HR PATCH TRANSDERM STA (06:56)
--- NOTE | 2020-02-22 07:03 | CT ---
EXAMINATION TYPE: CT facial bones wo con DATE OF EXAM: 02/22/2020 COMPARISON: NONE HISTORY: Fall injury with facial pain, focal pain and swelling near right IJ. CT DLP: 627.4 mGycm. Automated Exposure Control for Dose Reduction was Utilized. TECHNIQUE: CT scan of the ratio bones are performed without contrast, axial images are obtained, tod nal reformatted images are also reviewed. FINDINGS: The mandible is intact. The temporomandibular joints are maintained bilaterally. Nasal bone s and bridge are intact. Zygomatic arches are intact bilaterally. The orbital floors and tadeo are intact. The globes are intact bilaterally. There is moderate focal p reseptal hematoma on the right axial image 68. Intraconal fat is preserved bilaterally. Visualized maxilla is intact. Streak artifact from dental cavitary fillings and crowns noted. Paranas al sinuses are grossly clear. Moderate to severe calcified plaque at bilateral carotid bulb level inc identally noted. The pterygoid plates are intact bilaterally. IMPRESSION: Focal moderate preseptal acute soft tissue hematoma. No acute displaced facial bone frac ture.
[2020-02-22] MEDS ORDERED: NALOXONE 0.4 MG/ML 1 ML VIAL IV PRN (07:12)
[2020-02-22] MEDS ORDERED: MORPHINE SULFATE 4 MG/ML SYRINGE IVP STA ×2 (08:51→15:36)
[2020-02-22 14:04] VITALS: BMI 23.7
[2020-02-22 16:48] LABS: Glucose,Whole Blood 89 mg/dL (75-99)
--- NOTE | 2020-02-22 17:58 | P.NPCON ---
History of Present Illness - Reason for Consult end stage renal disease - History of Present Illness Reason for consultation: ESRD HPI: 59 y/o M seen for ESRD. Patient is maintained on hemodialysis on MWF schedule. States he sustained a fall at the parking lot this morning at his outpatient dialysis center. No acute fractures noted. Denies losing consciousness. States his legs gave out when he bend over to parts picker his keys. No fever or chills. No n/v/d. Recently admitted at [facility] for mycotic aneurysm and had a stent placed. He is maintained on daptomycin outpatient and receives it post- dialysis at an infusion center. Potassium is noted to be high and he has chronic hyperkalemia. Access was clotted on Saturday but is working well today. BP stable. No other complaints at this time. VS - stable. HEENT: NC/AT, no JVD. Facial hematoma noted. Heart: Regular rate and rhythm. Lungs: Breath sounds decreased. Abdomen: soft, NT. Ext: No edema. Past Medical History Past Medical History: Coronary Artery Disease (CAD), Heart Failure, COPD, GERD/Reflux, Hyperlipidemia, Hypertension, Renal Disease, Thyroid Disorder, Vascular Disorder Additional Past Medical History / Comment(s): Chronic kidney failure with hemodialysis on Saturday, Saturday and Fridays with last time being 02/22/20 in ER, chronic anemia, mineral bone disease, cardiomyopathy, "blood clot in my heart years ago", recent back pain, recent aortic aneurysm repair/bilateral stenting at [facility], hypothyroid, post op I&D L submax abscess -pt had respiratory failure and was vented. 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 Past Anesthesia/Blood Transfusion Reactions: No Reported Reaction Additional Past Anesthesia/Blood Transfusion Reaction / Comment(s): Pt has received blood without reaction. Date of Last Stent Placement:: 2017 Smoking Status: Current every day smoker - Past Family History Father Family Medical History: Diabetes Mellitus, Hypertension, Renal Disease Additional Family Medical History / Comment(s): Father was on hemodialysis Mother Family Medical History: Hypertension Medications and Allergies Home Medications Medication Instructions Recorded Confirmed Type Aspirin EC [Ecotrin Low Dose] 81 mg PO DAILY 01/16/18 02/22/20 History Citalopram Hydrobromide [CeleXA] 20 mg PO QAM 01/16/18 02/22/20 History Levothyroxine Sodium [Synthroid] 75 mcg PO DAILY 01/16/18 02/22/20 History Magnesium Oxide [Mag-Ox] 400 mg PO DAILY 01/16/18 02/22/20 History allopurinoL [Zyloprim] 100 mg PO QAM 01/16/18 02/22/20 History carvediloL [Coreg*] 12.5 mg PO AC-BID #60 tab 01/30/18 02/22/20 Rx hydrALAZINE HCL [Apresoline] 25 mg PO TID #90 tab 04/01/18 02/22/20 Rx Albuterol Inhaler [Ventolin Hfa 2 puff INHALATION RT-Q6H PRN 11/30/19 02/22/20 History Inhaler] Famotidine [Pepcid] 20 mg PO DAILY 11/30/19 02/22/20 History busPIRone HCl [Buspar] 20 mg PO BID 11/30/19 02/22/20 History Atorvastatin [Lipitor] 80 mg PO DIRECTED 02/22/20 02/22/20 History Auryxia 210mg 210 mg PO TID 02/22/20 02/22/20 History Cholecalciferol [Vitamin D3 (25 1,000 unit PO DAILY 02/22/20 02/22/20 History Mcg = 1000 Iu)] Clopidogrel Bisulfate [Plavix] 75 mg PO DAILY 02/22/20 02/22/20 History Cyclobenzaprine [Flexeril] 10 mg PO TID 02/22/20 02/22/20 History Furosemide [Lasix] 80 mg PO BID PRN 02/22/20 02/22/20 History Gabapentin [Neurontin] 100 mg PO TID PRN 02/22/20 02/22/20 History Magnesium Oxide [Magox 400] 400 mg PO DAILY 02/22/20 02/22/20 History Renocaps 1 cap PO HS 02/22/20 02/22/20 History amLODIPine [Norvasc] 10 mg PO DAILY 02/22/20 02/22/20 History Allergies Allergy/AdvReac Type Severity Reaction Status Date / Time Penicillins Allergy Unknown Verified 02/22/20 04:43 Childhood Physical Exam Vitals: Vital Signs Temp Pulse Pulse Resp BP BP Pulse Ox 02/22/20 16:08 98.1 F 89 18 108/49 02/22/20 13:26 97.8 F 85 18 109/56 91 L 02/22/20 12:45 98.0 F 86 18 118/56 97 02/22/20 11:14 86 16 117/55 98 02/22/20 09:30 84 16 134/78 98 02/22/20 08:01 89 92 L 02/22/20 06:09 78 20 116/72 02/22/20 04:38 98 F 84 18 148/90 95 Intake and Output 02/22/20 02/22/20 02/22/20 06:59 14:59 22:59 Output Total 3000 Balance -3000 Output: Hemodialysis 3000 Other: Voiding Method Toilet Weight 77.111 kg 77.111 kg Results - Lab Results Most recent lab results Calcium 9.5 mg/dL (8.4-10.2) 02/22/20 06:09 Phosphorus 3.6 mg/dL (2.5-4.5) 02/22/20 06:09 Magnesium 1.9 mg/dL (1.6-2.3) 02/22/20 06:09 02/22/20 06:09 02/22/20 06:09 Assessment and Plan Plan: Assessment: 1. ESRD maintained on HD MWF schedule. 2. Hyperkalemia due to CKD maintained on [facility]. 3. CKD-MBD. 4. Fall with facial hematoma. No acute fracture noted. 5. Myoctic aortic aneurysm maintained on IV daptomycin. 6. Anemia of CKD. Plan: Currently seeing while on HD. Daptomycin IV post-HD today. Add Aranesp. Check iron studies. Potential discharge tomorrow. Thank you for the consultation. I will continue to follow the patient with you during his hospital stay.
[2020-02-22] MEDS ORDERED: DARBEPOETIN ALFA 40 MCG/0.4 ML SYRINGE SQ SCH (20:00)
[2020-02-22 20:09] LABS: Glucose,Whole Blood 101 mg/dL (75-99)
[2020-02-22] MEDS ORDERED: GABAPENTIN 100 MG CAP PO PRN (20:45)
[2020-02-22] MEDS ORDERED: ALBUTEROL NEBULIZED 2.5 MG/3 ML INHALATION PRN (20:45)
[2020-02-22] MEDS ORDERED: FUROSEMIDE 20 MG TAB PO PRN (20:45)
[2020-02-22] MEDS ORDERED: ACETAMINOPHEN TAB 325 MG TAB PO PRN (20:47)
[2020-02-22] MEDS ORDERED: [UNRECOGNIZED DRUG - OTHER] PO SCH (21:00)
[2020-02-22] MEDS: carvediloL 12.5 MG TAB PO SCH (21:17)
[2020-02-22] MEDS: amLODIPine 10 MG TAB PO SCH (21:17)
[2020-02-22] MEDS: hydrALAZINE HCL 25 MG TAB PO SCH (21:18)
[2020-02-22] MEDS: CITALOPRAM HYDROBROMIDE 20 MG TAB PO SCH (21:23)
[2020-02-22] MEDS: ASPIRIN 81 MG PO SCH (21:29)
[2020-02-22] MEDS: ATORVASTATIN 80 MG TAB PO SCH (21:29)
[2020-02-22] MEDS: CYCLOBENZAPRINE 10 MG TAB PO SCH (21:30)
[2020-02-22] MEDS: busPIRone HCl 10 MG TAB PO SCH (21:30)
[2020-02-22] MEDS: HYDROcodone/APAP 5-325MG 1 EACH TAB PO PRN (21:30)
[2020-02-22] MEDS: CHOLECALCIFEROL 1,000 UNIT TAB PO SCH (21:30)
[2020-02-22] MEDS: AURYXIA 210 MG PO SCH (23:56)
[2020-02-23 01:37] LABS: % Iron Saturation 12.3 (15.00-50.00); Ferritin 1074.2 ng/mL (22.0-322.0)
[2020-02-23] MEDS: HYDROcodone/APAP 5-325MG 1 EACH TAB PO PRN ×4 (04:57→23:47)
[2020-02-23] MEDS: LEVOTHYROXINE 75 MCG TAB PO SCH (04:58)
[2020-02-23 05:46] LABS: Basophils # (A) 0.1 k/uL (0-0.2); Basophils % (A) 1 %; Eosinophils # (A) 1.1 k/uL (0-0.7); Eosinophils % (A) 14 %; HCT 23.7 % (39.0-53.0); HGB 7.2 gm/dL (13.0-17.5); Hypochromasia Marked; Lymphocytes # (A) 1.1 k/uL (1.0-4.8); Lymphocytes % (A) 13 %; MCH 30.2 pg (25.0-35.0); MCHC 30.6 g/dL (31.0-37.0); MCV 98.7 fL (80.0-100.0); Macrocytosis Slight; Mean Platelet Volume 7.7; Monocytes # (A) 0.4 k/uL (0-1.0); Monocytes % (A) 6 %; Neutrophils # (A) 5.2 k/uL (1.3-7.7); Neutrophils % (A) 66 %; Platelet Count 305 k/uL (150-450); RDW 15.5 % (11.5-15.5)
[2020-02-23 05:57] LABS: Calcium 9.3 mg/dL (8.4-10.2)
[2020-02-23 06:43] LABS: Glucose,Whole Blood 86 mg/dL (75-99)
[2020-02-23] MEDS: CYCLOBENZAPRINE 10 MG TAB PO SCH ×3 (08:55→23:16)
[2020-02-23] MEDS: CITALOPRAM HYDROBROMIDE 20 MG TAB PO SCH (08:55)
[2020-02-23] MEDS: ASPIRIN 81 MG PO SCH (08:55)
[2020-02-23] MEDS: carvediloL 12.5 MG TAB PO SCH ×2 (08:55→16:34)
[2020-02-23] MEDS: amLODIPine 10 MG TAB PO SCH (08:56)
[2020-02-23] MEDS: busPIRone HCl 10 MG TAB PO SCH ×2 (08:56→20:38)
[2020-02-23] MEDS: CHOLECALCIFEROL 1,000 UNIT TAB PO SCH (08:56)
[2020-02-23] MEDS: CLOPIDOGREL 75 MG TAB PO SCH (08:56)
[2020-02-23] MEDS: allopurinoL 100 MG TAB PO SCH (08:56)
[2020-02-23] MEDS: FAMOTIDINE 20 MG TAB PO SCH (08:56)
[2020-02-23] MEDS: AURYXIA 210 MG PO SCH ×3 (08:57→23:17)
[2020-02-23] MEDS: hydrALAZINE HCL 25 MG TAB PO SCH ×3 (09:00→23:16)
[2020-02-23] MEDS ORDERED: MAGNESIUM OXIDE 400 MG PO SCH (09:00)
[2020-02-23] MEDS: MAGNESIUM OXIDE 400 MG TAB PO SCH (09:01)
--- NOTE | 2020-02-23 10:21 | P.PN ---
Subjective Patient is seen in follow-up for end-stage renal disease. He is maintained on hemodialysis on Saturday schedule. Tolerated hemodialysis well yesterday. Complains of generalized soreness from the fall. No other complaints. Vital signs are stable. General: The patient appeared well nourished and normally developed. HEENT: Facial and scalp bruising noted. LUNGS: Lungs are clear to auscultation and percussion. Breath sounds decreased. HEART: Rate and Rhythm are regular. ABDOMEN: Soft, nontender. EXTREMITITES: No clubbing, cyanosis, or edema. Objective - Vital Signs Vital signs: Vital Signs Temp 98.3 F 02/23/20 09:00 Pulse 83 02/23/20 09:00 Resp 16 02/23/20 09:00 BP 164/75 02/23/20 09:00 Pulse Ox 97 02/23/20 09:00 Intake & Output 02/22/20 02/23/20 02/23/20 18:59 06:59 18:59 Intake Total 600 Output Total 3000 Balance -2400 Weight 77.111 kg Intake: Other 600 Output: Hemodialysis 3000 Other: Voiding Method Toilet # Voids 1 - Labs CBC & Chem 7: 02/23/20 05:30 02/23/20 05:30 Labs: Abnormal Lab Results - Last 24 Hours (Table) 02/22/20 02/22/20 02/23/20 Range/Units 06:09 20:07 05:30 RBC 2.40 L (4.30-5.90) m/uL Hgb 7.2 L (13.0-17.5) gm/dL Hct 23.7 L (39.0-53.0) % MCHC 30.6 L (31.0-37.0) g/dL Eosinophils # 1.1 H (0-0.7) k/uL Sodium (137-145) mmol/L BUN (9-20) mg/dL Creatinine (0.66-1.25) mg/dL POC Glucose (mg/dL) 101 H (75-99) mg/dL Iron 23 L (65-175) ug/dL TIBC 187 L (228-460) ug/dL % Saturation 12.30 L (15.00-50.00) Ferritin 1074.2 H (22.0-322.0) ng/mL 02/23/20 Range/Units 05:30 RBC (4.30-5.90) m/uL Hgb (13.0-17.5) gm/dL Hct (39.0-53.0) % MCHC (31.0-37.0) g/dL Eosinophils # (0-0.7) k/uL Sodium 136 L (137-145) mmol/L BUN 28 H (9-20) mg/dL Creatinine 6.44 H (0.66-1.25) mg/dL POC Glucose (mg/dL) (75-99) mg/dL Iron (65-175) ug/dL TIBC (228-460) ug/dL % Saturation (15.00-50.00) Ferritin (22.0-322.0) ng/mL Assessment and Plan Plan: Assessment: 1. ESRD maintained on HD MWF schedule. 2. Hyperkalemia due to CKD maintained on [facility]. Improved post dialysis. 3. CKD-MBD. 4. Fall with facial hematoma. No acute fracture noted. 5. Myoctic aortic aneurysm maintained on IV daptomycin. 6. Anemia of CKD. Maintained on Aranesp. Plan: Hemodialysis tomorrow. Maintain IV daptomycin postdialysis. Hold off on IV iron due to infection.
[2020-02-23 11:38] LABS: Glucose,Whole Blood 88 mg/dL (75-99)
--- NOTE | 2020-02-23 11:51 | P.HPIM ---
History of Present Illness H&P Date: 02/23/20 Chief Complaint: Status post fall, need for dialysis Mr. Boogie is a coronary artery disease, CHF, COPD, GERD, hypertension, hyperlipidemia, ESRD on hemodialysis on Saturday, recent aortic aneurysm repair at [facility], coming in with a chief complaint of fall. Patient states that he was up early in the morning around to go to his 4:30 AM dialysis and was walking towards his vehicle. He skis fell and he went over to pick the [place] where he lost balance and fell on his face on the right side. Patient denies having any loss of consciousness. He denies having any chest pain or palpitations prior to the fall. He also states that he missed his dialysis on Saturday due to issues with his catheter. He gets his dialysis on Mondays, Wednesdays and Fridays, he missed his Saturday dialysis. When the patient was in the ER his potassium was at 6.2 and his creatinine 8.41, nephrology was consulted and he underwent dialysis yesterday. Patient had CT of the head done that was negative for any acute intracranial process and a CT of the face showing focal moderate preseptal acute soft tissue hematoma with no acute displaced facial bone fracture. Patient complains of pain on the right side of his face as he had extensive bruising. Patient denies having any chest pain or palpitations. No cough or difficulty in breathing. No abdominal pain n ausea vomiting or diarrhea. Review of Systems REVIEW OF SYSTEMS: CONSTITUTIONAL: No fever, no malaise, no fatigue. HEENT: No recent visual problems or hearing problems. Denied any sore throat. CARDIOVASCULAR: No chest pain, palpitations. No orthopnea or PND. PULMONARY: No shortness of breath, no cough, no hemoptysis. GASTROINTESTINAL: No diarrhea, no nausea, no abdominal pain. NEUROLOGICAL: No headaches, no weakness, no numbness. HEMATOLOGICAL: Denies any bleeding or petechiae. GENITOURINARY: Denies any burning micturition, frequency, or urgency. MUSCULOSKELETAL/RHEUMATOLOGICAL: Patient complains of pain over the right side of the face ENDOCRINE: Denies any polyuria or polydipsia. The rest of the 13-point review of systems is negative. Past Medical History Past Medical History: Coronary Artery Disease (CAD), Heart Failure, COPD, GERD/Reflux, Hyperlipidemia, Hypertension, Renal Disease, Thyroid Disorder, Vascular Disorder Additional Past Medical History / Comment(s): Chronic kidney failure with hemodialysis on Saturday, Saturday and Fridays with last time being 02/22/20 in ER, chronic anemia, mineral bone disease, cardiomyopathy, "blood clot in my hea rt years ago", recent back pain, recent aortic aneurysm repair/bilateral stenting at [facility], hypothyroid, post op I&D L submax abscess -pt had respiratory failure and was vented. 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 Past Anesthesia/Blood Transfusion Reactions: No Reported Reaction Additional Past Anesthesia/Blood Transfusion Reaction / Comment(s): Pt has received blood without reaction. Date of Last Stent Placement:: 2017 Smoking Status: Current every day smoker - Past Family History Father Family Medical History: Diabetes Mellitus, Hypertension, Renal Disease Additional Family Medical History / Comment(s): Father was on hemodialysis Mother Family Medical History: Hypertension Medications and Allergies Home Medications Medication Instructions Recorded Confirmed Type Aspirin EC [Ecotrin Low Dose] 81 mg PO DAILY 01/16/18 02/22/20 History Citalopram Hydrobromide [CeleXA] 20 mg PO QAM 01/16/18 02/22/20 History Levothyroxine Sodium [Synthroid] 75 mcg PO DAILY 01/16/18 02/22/20 History Magnesium Oxide [Mag-Ox] 400 mg PO DAILY 01/16/18 02/22/20 History allopurinoL [Zyloprim] 100 mg PO QAM 01/16/18 02/22/20 History carvediloL [Coreg*] 12.5 mg PO AC-BID #60 tab 01/30/18 02/22/20 Rx hydrALAZINE HCL [Apresoline] 25 mg PO TID #90 tab 04/01/18 02/22/20 Rx Albuterol Inhaler [Ventolin Hfa 2 puff INHALATION RT-Q6H PRN 11/30/19 02/22/20 History Inhaler] Famotidine [Pepcid] 20 mg PO DAILY 11/30/19 02/22/20 History busPIRone HCl [Buspar] 20 mg PO BID 11/30/19 02/22/20 History Atorvastatin [Lipitor] 80 mg PO DIRECTED 02/22/20 02/22/20 History Auryxia 210mg 210 mg PO TID 02/22/20 02/22/20 History Cholecalciferol [Vitamin D3 (25 1,000 unit PO DAILY 02/22/20 02/22/20 History Mcg = 1000 Iu)] Clopidogrel Bisulfate [Plavix] 75 mg PO DAILY 02/22/20 02/22/20 History Cyclobenzaprine [Flexeril] 10 mg PO TID 02/22/20 02/22/20 History Furosemide [Lasix] 80 mg PO BID PRN 02/22/20 02/22/20 History Gabapentin [Neurontin] 100 mg PO TID PRN 02/22/20 02/22/20 History Magnesium Oxide [Magox 400] 400 mg PO DAILY 02/22/20 02/22/20 History Renocaps 1 cap PO HS 02/22/20 02/22/20 History amLODIPine [Norvasc] 10 mg PO DAILY 02/22/20 02/22/20 History Allergies Allergy/AdvReac Type Severity Reaction Status Date / Time Penicillins Allergy Unknown Verified 02/22/20 04:43 Childhood Physical Exam Vitals: Vital Signs Temp Pulse Pulse Resp BP BP Pulse Ox 02/23/20 09:00 98.3 F 83 16 164/75 97 02/23/20 03:00 98.3 F 81 16 142/62 94 L 02/22/20 21:00 98.2 F 81 17 115/76 97 02/22/20 16:08 98.1 F 89 18 108/49 02/22/20 13:26 97.8 F 85 18 109/56 91 L 02/22/20 12:45 98.0 F 86 18 118/56 97 Intake and Output 02/22/20 02/23/20 02/23/20 22:59 06:59 14:59 Intake Total 600 400 Output Total 3000 Balance -2400 400 Intake: Oral 400 Other 600 Output: Hemodialysis 3000 Other: Voiding Method Toilet # Voids 1 PHYSICAL EXAMINATION: GENERAL: not in any acute distress. HEENT: Pupils are round and equally reacting to light. Extensive bruising on the right side of the face. Hematoma in the right eye. No visual field defects. CARDIOVASCULAR: S 1 , S 2 heard . No additional sounds. PULMONARY: Bilateral breath sounds are positive. Mild crackles at the lower lung bases bilaterally. ABDOMEN: Soft, nontender, nondistended, normoactive bowel sounds. No palpable organomegaly. MUSCULOSKELETAL: Facial bruising EXTREMITIES: No cyanosis, clubbing, or pedal edema. Dialysis catheter in the right upper extremity. Left arm amputation as a child NEUROLOGICAL: Alert awake oriented 3, Gross neurological examination did not reveal any focal deficits. SKIN: No rash Results CBC & Chem 7: 02/23/20 05:30 02/23/20 05:30 Labs: Abnormal Lab Results - Last 24 Hours (Table) 02/22/20 02/22/20 02/23/20 Range/Units 06:09 20:07 05:30 RBC 2.40 L (4.30-5.90) m/uL Hgb 7.2 L (13.0-17.5) gm/dL Hct 23.7 L (39.0-53.0) % MCHC 30.6 L (31.0-37.0) g/dL Eosinophils # 1.1 H (0-0.7) k/uL Sodium (137-145) mmol/L BUN (9-20) mg/dL Creatinine (0.66-1.25) mg/dL POC Glucose (mg/dL) 101 H (75-99) mg/dL Iron 23 L (65-175) ug/dL TIBC 187 L (228-460) ug/dL % Saturation 12.30 L (15.00-50.00) Ferritin 1074.2 H (22.0-322.0) ng/mL 02/23/20 Range/Units 05:30 RBC (4.30-5.90) m/uL Hgb (13.0-17.5) gm/dL Hct (39.0-53.0) % MCHC (31.0-37.0) g/dL Eosinophils # (0-0.7) k/uL Sodium 136 L (137-145) mmol/L BUN 28 H (9-20) mg/dL Creatinine 6.44 H (0.66-1.25) mg/dL POC Glucose (mg/dL) (75-99) mg/dL Iron (65-175) ug/dL TIBC (228-460) ug/dL % Saturation (15.00-50.00) Ferritin (22.0-322.0) ng/mL Thrombosis Risk Factor Assmnt - Choose All That Apply Any of the Below Risk Factors Present?: Yes Each Factor Represents 1 point: Abnormal pulmonary function (COPD), Age 41-60 years Other Risk Factors: No Other congenital or acquired thrombophilia - If yes, enter type in comment: No Thrombosis Risk Factor Assessment Total Risk Factor Score: 2 Thrombosis Risk Factor Assessment Level: Low Risk Assessment and Plan Assessment: ASSESSMENT Status post mechanical fall on the right side of the face Missed hemodialysis Hyperkalemia secondary to above Preseptal soft tissue hematoma on the right side Mycotic aortic aneurysm being maintained on IV daptomycin Recent repair of an aortic aneurysm at [facility] ESRD on hemodialysis on Saturday, Saturday and Saturday Anemia of chronic kidney disease Hypertension Hyperlipidemia COPD Remote history of MRSA 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 Awad following the patient. Patient has extensive bruising on the right side of the face, continue with pain medications. There is preseptal hematoma but no facial fractures noted on the computed tomography scan of the face. He is being continued on IV daptomycin for mycotic aortic aneurysm to his dialysis. Patient has been restarted on all his home medications. Further recommendations to follow depending on the progress of the patient.
[2020-02-23 16:33] LABS: Glucose,Whole Blood 95 mg/dL (75-99)
[2020-02-23] MEDS: NICOTINE 14MG/24HR PATCH TRANSDERM SCH (16:34)
[2020-02-23] MEDS: ATORVASTATIN 80 MG TAB PO SCH (20:38)
[2020-02-23 20:49] LABS: Glucose,Whole Blood 86 mg/dL (75-99)
[2020-02-24] MEDS: LEVOTHYROXINE 75 MCG TAB PO SCH (06:10)
[2020-02-24 06:46] LABS: Glucose,Whole Blood 84 mg/dL (75-99)
[2020-02-24] MEDS ORDERED: GELATIN SPONGE,ABSORB (LARGE) 1 EACH SPONGE ONE (08:00)
[2020-02-24 09:12] VITALS: TEMP 98.5
[2020-02-24] MEDS: HYDROcodone/APAP 5-325MG 1 EACH TAB PO PRN (10:08)
[2020-02-24 11:12] LABS: Glucose,Whole Blood 94 mg/dL (75-99)
--- NOTE | 2020-02-24 11:17 | P.PN ---
Subjective Patient is seen in follow-up for end-stage renal disease. He is maintained on hemodialysis on Saturday schedule. Tolerating dialysis well. No active complaints at this time. Hemodynamically stable. Vital signs are stable. General: The patient appeared well nourished and normally developed. HEENT: Facial and scalp bruising noted. LUNGS: Lungs are clear to auscultation and percussion. Breath sounds decreased. HEART: Rate and Rhythm are regular. ABDOMEN: Soft, nontender. EXTREMITITES: No clubbing, cyanosis, or edema. Objective - Vital Signs Vital signs: Vital Signs Temp 98.5 F 02/24/20 09:09 Pulse 76 02/24/20 09:09 Resp 16 02/24/20 09:09 BP 123/68 02/24/20 09:09 Pulse Ox 95 02/24/20 09:09 Intake & Output 02/23/20 02/24/20 02/24/20 18:59 06:59 18:59 Intake Total 920 Balance 920 Intake: Oral 820 Other 100 Other: Voiding Method Toilet # Voids 1 - Labs CBC & Chem 7: 02/23/20 05:30 02/23/20 05:30 Assessment and Plan Plan: Assessment: 1. ESRD maintained on HD MWF schedule. 2. Hyperkalemia due to CKD maintained on [facility]. Improved postdialysis. 3. CKD-MBD. 4. Fall with facial hematoma. No acute fracture noted. 5. Myoctic aortic aneurysm maintained on IV daptomycin. 6. Anemia of CKD. Maintained on Aranesp. Plan: Currently seen while undergoing hemodialysis. Maintain IV daptomycin postdialysis. Hold off on IV iron due to infection. Stable to be discharged home from nephrology standpoint.
[2020-02-24] MEDS: carvediloL 12.5 MG TAB PO SCH (11:50)
[2020-02-24] MEDS: CHOLECALCIFEROL 1,000 UNIT TAB PO SCH (11:50)
[2020-02-24] MEDS: NICOTINE 14MG/24HR PATCH TRANSDERM SCH (11:50)
[2020-02-24] MEDS: busPIRone HCl 10 MG TAB PO SCH (11:51)
[2020-02-24] MEDS: amLODIPine 10 MG TAB PO SCH (11:51)
[2020-02-24] MEDS: FAMOTIDINE 20 MG TAB PO SCH (11:51)
[2020-02-24] MEDS: CYCLOBENZAPRINE 10 MG TAB PO SCH (11:51)
[2020-02-24] MEDS: CLOPIDOGREL 75 MG TAB PO SCH (11:51)
[2020-02-24] MEDS: MAGNESIUM OXIDE 400 MG TAB PO SCH (11:51)
[2020-02-24] MEDS: hydrALAZINE HCL 25 MG TAB PO SCH (11:51)
[2020-02-24] MEDS: allopurinoL 100 MG TAB PO SCH (11:51)
[2020-02-24] MEDS: CITALOPRAM HYDROBROMIDE 20 MG TAB PO SCH (11:51)
[2020-02-24] MEDS: ASPIRIN 81 MG PO SCH (11:51)
[2020-02-24] MEDS: AURYXIA 210 MG PO SCH (11:52)
[2020-02-24 12:42] VITALS: BP 126/53; PULSE 63; RESP 18
[2020-03-02 14:22] LABS: Glucose,Whole Blood 109 mg/dL (75-99)
--- NOTE | 2020-03-10 02:06 | P.DS ---
Providers Date of admission: 02/22/20 07:12 Expected date of discharge: 02/24/20 Attending physician: Giuliana Bolton Consults: 02/22/20 07:13 Consult Physician Urgent Consulting Provider: Edel Vázquez Consult Reason/Comments: needs dialysis Do you want consulting provider notified?: Yes, Notify in am Primary care physician: Tobey Hospital Course: HPI -Mr. Boogie is a coronary artery disease, CHF, COPD, GERD, hypertension, hyperlipidemia, ESRD on hemodialysis on Saturday, recent aortic aneurysm repair at [facility], coming in with a chief complaint of fall. Patient states that he was up early in the morning around to go to his 4:30 AM dialysis and was walking towards his vehicle. He skis fell and he went over to pick the [place] where he lost balance and fell on his face on the right side. Patient denies having any loss of consciousness. He denies having any chest pain or palpitations prior to the fall. He also states that he missed his dialysis on Saturday due to issues with his catheter. He gets his dialysis on Mondays, Wednesdays and Fridays, he missed his Saturday dialysis. When the patient was in the ER his potassium was at 6.2 and his creatinine 8.41, nephrology was consulted and he underwent dialysis yesterday. Patient had CT of the head done that was negative for any acute intracranial process and a CT of the face showing focal moderate preseptal acute soft tissue hematoma with no acute displaced facial bone fracture. Patient complains of pain on the right side of his face as he had extensive bruising. Patient denies having any chest pain or palpitations. No cough or difficulty in breathing. No abdominal pain nausea vomiting or diarrhea. Hospital course -Patient underwent dialysis as per nephrology recommendations and his hyperkalemia resolved. He was maintained on IV daptomycin for his mycotic aortic aneurysm. Patient's right-sided facial bruising improved. CAT scan showed preseptal hematoma but no facial fractures. Patient was restarted on all his home medications during the hospital stay and his blood pressure was within normal limits. He was cleared by nephrology to be discharged home. Patient is being discharged home in stable condition. He is advised to follow- up with his PCP in 2 to 3 days. Patient Condition at Discharge: Good Plan - Discharge Summary Discharge Rx Participant: Yes New Discharge Prescriptions: Continue Citalopram Hydrobromide [CeleXA] 20 mg PO QAM Aspirin EC [Ecotrin Low Dose] 81 mg PO DAILY Levothyroxine Sodium [Synthroid] 75 mcg PO DAILY Magnesium Oxide [Mag-Ox] 400 mg PO DAILY allopurinoL [Zyloprim] 100 mg PO QAM carvediloL [Coreg*] 12.5 mg PO AC-BID #60 tab Famotidine [Pepcid] 20 mg PO DAILY busPIRone HCl [Buspar] 20 mg PO BID Albuterol Inhaler [Ventolin Hfa Inhaler] 2 puff INHALATION RT-Q6H PRN PRN Reason: Shortness Of Breath Cholecalciferol [Vitamin D3 (25 Mcg = 1000 Iu)] 1,000 unit PO DAILY Atorvastatin [Lipitor] 80 mg PO DIRECTED Auryxia 210mg 210 mg PO TID Renocaps 1 cap PO HS amLODIPine [Norvasc] 10 mg PO DAILY Clopidogrel Bisulfate [Plavix] 75 mg PO DAILY Cyclobenzaprine [Flexeril] 10 mg PO TID Furosemide [Lasix] 80 mg PO BID PRN PRN Reason: Edema Gabapentin [Neurontin] 100 mg PO TID PRN PRN Reason: Pain Magnesium Oxide [Magox 400] 400 mg PO DAILY No Action Darbepoetin Han [Aranesp] 60 mcg SQ Q7D syringe Ferrous Sulfate [Feosol] 325 mg PO DAILY 30 Days #30 tab Budesonide-Formot 160-4.5 Mcg [Symbicort 160-4.5 Mcg Inhaler] 2 puff INHALATION RT-BID 30 Days #1 puff Discharge Medication List Aspirin EC [Ecotrin Low Dose] 81 mg PO DAILY 01/16/18 [History] Citalopram Hydrobromide [CeleXA] 20 mg PO QAM 01/16/18 [History] Levothyroxine Sodium [Synthroid] 75 mcg PO DAILY 01/16/18 [History] Magnesium Oxide [Mag-Ox] 400 mg PO DAILY 01/16/18 [History] allopurinoL [Zyloprim] 100 mg PO QAM 01/16/18 [History] carvediloL [Coreg*] 12.5 mg PO AC-BID #60 tab 01/30/18 [Rx] Albuterol Inhaler [Ventolin Hfa Inhaler] 2 puff INHALATION RT-Q6H PRN 11/30/19 [History] Famotidine [Pepcid] 20 mg PO DAILY 11/30/19 [History] busPIRone HCl [Buspar] 20 mg PO BID 11/30/19 [History] Atorvastatin [Lipitor] 80 mg PO DIRECTED 02/22/20 [History] Auryxia 210mg 210 mg PO TID 02/22/20 [History] Cholecalciferol [Vitamin D3 (25 Mcg = 1000 Iu)] 1,000 unit PO DAILY 02/22/20 [History] Clopidogrel Bisulfate [Plavix] 75 mg PO DAILY 02/22/20 [History] Cyclobenzaprine [Flexeril] 10 mg PO TID 02/22/20 [History] Furosemide [Lasix] 80 mg PO BID PRN 02/22/20 [History] Gabapentin [Neurontin] 100 mg PO TID PRN 02/22/20 [History] Magnesium Oxide [Magox 400] 400 mg PO DAILY 02/22/20 [History] Renocaps 1 cap PO HS 02/22/20 [History] amLODIPine [Norvasc] 10 mg PO DAILY 02/22/20 [History] Budesonide-Formot 160-4.5 Mcg [Symbicort 160-4.5 Mcg Inhaler] 2 puff INHALATION RT-BID 30 Days #1 puff 03/02/20 [Rx] Darbepoetin Han [Aranesp] 60 mcg SQ Q7D syringe 03/02/20 [Rx] Ferrous Sulfate [Feosol] 325 mg PO DAILY 30 Days #30 tab 03/02/20 [Rx] Follow up Appointment(s[facility]Ref[facility] - [facility]-2 Days [facility] [NON-STAFF] - As Needed [facility] [NON-STAFF] - 02/26/20 10:15 am (Patient will go to [facility] after his dialysis, time is approximate. ) Srini Hastings MD [Primary Care Provider] - 1-2 days Patient Instructions/Handouts: Fall Prevention for Older Adults (DC) Activity/Diet/Wound Care/Special Instructions: If indigent funds are needed at dc, contact CM Discharge Disposition: HOME SELF-CARE
== END 2020-02-24 15:35 | disposition home or self-care (01) ==
LOC: EC 04:33 → UNDOADMOB 07:12 → 1SOBS 07:12
PROVIDERS: ADMIT Hospitalist; ATTEND Hospitalist
DX: S00.81XA Abrasion of other part of head, initial encounter (principal); S00.11XA Contusion of right eyelid and periocular area, initial encounter; Z91.15 Patient's noncompliance with renal dialysis; E87.5 Hyperkalemia; I71.4 Abdominal aortic aneurysm, without rupture; N18.6 End stage renal disease; D63.1 Anemia in chronic kidney disease; I13.2 Hypertensive heart and chronic kidney disease with heart failure and with stage 5 chronic kidney disease, or end stage renal disease; E78.5 Hyperlipidemia, unspecified; J44.9 Chronic obstructive pulmonary disease, unspecified; R94.31 Abnormal electrocardiogram [ECG] [EKG]; I25.10 Atherosclerotic heart disease of native coronary artery without angina pectoris; I50.9 Heart failure, unspecified; K21.9 Gastro-esophageal reflux disease without esophagitis; I42.9 Cardiomyopathy, unspecified; E03.9 Hypothyroidism, unspecified; F17.200 Nicotine dependence, unspecified, uncomplicated; M89.9 Disorder of bone, unspecified; E83.9 Disorder of mineral metabolism, unspecified; R52 Pain, unspecified; Z79.82 Long term (current) use of aspirin; Z79.899 Other long term (current) drug therapy; Z79.890 Hormone replacement therapy; Z88.0 Allergy status to penicillin; Z86.718 Personal history of other venous thrombosis and embolism; Z98.890 Other specified postprocedural states; Z87.09 Personal history of other diseases of the respiratory system; Z86.14 Personal history of Methicillin resistant Staphylococcus aureus infection; Z95.5 Presence of coronary angioplasty implant and graft; Z89.212 Acquired absence of left upper limb below elbow; Z87.828 Personal history of other (healed) physical injury and trauma; Z95.820 Peripheral vascular angioplasty status with implants and grafts; Z95.828 Presence of other vascular implants and grafts; Z83.3 Family history of diabetes mellitus; Z82.49 Family history of ischemic heart disease and other diseases of the circulatory system; Z84.1 Family history of disorders of kidney and ureter; W18.39XA Other fall on same level, initial encounter; Y92.481 Parking lot as the place of occurrence of the external cause; Y93.89 Activity, other specified
CPT/HCPCS: 96365; 96366; 96372; 96376 ×2; 96375; 99285; 36415; 94760; 93005; 80053; 80048; 82728; 83540; 83550; 83735; 84100; 85025 ×2; 85610; 85730; 72125; 70486; 70450; G0378 ×3; G0257 ×2; S4990 ×3; J2270; J0878 ×2; J0881; 90935

== ENCOUNTER 2020-02-29 10:09 | Inpatient (IN) | payer MEDICARE, BC ==
[2020-02-29] MEDS ORDERED: PANTOPRAZOLE 40 MG/10 ML VIAL IVP STA (10:34)
--- NOTE | 2020-02-29 10:34 | ED ---
General Adult HPI - General Chief complaint: Recheck/Abnormal Lab/Rx Stated complaint: abn labs Time Seen by Provider: 02/29/20 10:20 Source: patient Mode of arrival: ambulatory Limitations: no limitations - History of Present Illness Initial comments: Dictation was produced using [employer] dictation software. please excuse any grammatical, word or spelling errors. 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 History of Present Illness: His 59-year-old male who states he had labs performed last week. He was told today to come to the emergency department for low hemoglobin. He hasn't of the exact level. Patient states he was recently discharged from [facility]. He was told that he has sepsis and gets antibiotics via a PICC line of the left upper extremity. Patient stenosis Saturday. It to our dialysis today prior to coming to the emergency department. Patient denies any nausea or vomiting. He does however report lack of appetite area denies any pain complaints. Denies any dark stool or bloody stools. He denies any back pain. The ROS documented in this emergency department record has been reviewed and confirmed by me. Those systems with pertinent positive or negative responses have been documented in the HPI. All other systems are other negative and/or noncontributory. PHYSICAL EXAM: General Impression: Alert and oriented x3, not in acute distress HEENT: Normocephalic atraumatic, extra-ocular movements intact, pupils equal and reactive to light bilaterally, mucous membranes moist. Cardiovascular: Heart regular rate and rhythm Chest: Able to complete full sentences, no retractions, no tachypnea Abdomen: abdomen soft, non-tender, non-distended, no organomegaly Musculoskeletal: Pulses present and equal in all extremities, no peripheral edema Motor: no focal deficits noted Neurological: CN II-XII grossly intact, no focal motor or sensory deficits noted Skin: Intact with no visualized rashes Psych: Normal affect and mood Rectal: Refused ED course: 59-year-old male with abnormal outpatient lab. Patient states his hemoglobin was low and was he was told to come to the emergency department for possible blood transfusion. As upon arrival are within acceptable limits. Patient refuses rectal exam. Laboratory evaluation obtained. Hemoglobin is 7.7. Negative previous labs. Patient had a 10.7 last month around this time. Just last week patient had hemoglobins measuring the sevens. Coag panel is unremarkable. Metabolic panel is unremarkable. Patient reevaluated bedside in stable medical condition. At this point no clear indication for blood transfusion. We'll have patient admitted for serial CBCs and GI consultation. Patient treated with Protonix. Patient agreeable with disposition. Admitted to [facility]. EKG interpretation: Ventricular rate 91, sinus rhythm,. Interval 156, QRS 1:30, QTc 516. No AK prolongation, no QTC prolongation, no ST or T-wave changes noted. EKG compared to 02/22/2020 showing no changes. Overall, this EKG is unremarkable - Related Data Home Medications Medication Instructions Recorded Confirmed Aspirin EC [Ecotrin Low Dose] 81 mg PO DAILY 01/16/18 02/29/20 Citalopram Hydrobromide [CeleXA] 20 mg PO QAM 01/16/18 02/29/20 Levothyroxine Sodium [Synthroid] 75 mcg PO DAILY 01/16/18 02/29/20 Magnesium Oxide [Mag-Ox] 400 mg PO DAILY 01/16/18 02/29/20 allopurinoL [Zyloprim] 100 mg PO QAM 01/16/18 02/29/20 Albuterol Inhaler [Ventolin Hfa 2 puff INHALATION RT-Q6H PRN 11/30/19 02/29/20 Inhaler] Famotidine [Pepcid] 20 mg PO DAILY 11/30/19 02/29/20 busPIRone HCl [Buspar] 20 mg PO BID 11/30/19 02/29/20 Atorvastatin [Lipitor] 80 mg PO DIRECTED 02/22/20 02/29/20 Auryxia 210mg 210 mg PO TID 02/22/20 02/29/20 Cholecalciferol [Vitamin D3 (25 1,000 unit PO DAILY 02/22/20 02/29/20 Mcg = 1000 Iu)] Clopidogrel Bisulfate [Plavix] 75 mg PO DAILY 02/22/20 02/29/20 Cyclobenzaprine [Flexeril] 10 mg PO TID 02/22/20 02/29/20 Furosemide [Lasix] 80 mg PO BID PRN 02/22/20 02/29/20 Gabapentin [Neurontin] 100 mg PO TID PRN 02/22/20 02/29/20 Magnesium Oxide [Magox 400] 400 mg PO DAILY 02/22/20 02/29/20 Renocaps 1 cap PO HS 02/22/20 02/29/20 amLODIPine [Norvasc] 10 mg PO DAILY 02/22/20 02/29/20 Previous Rx's Medication Instructions Recorded carvediloL [Coreg*] 12.5 mg PO AC-BID #60 tab 01/30/18 hydrALAZINE HCL [Apresoline] 25 mg PO TID #90 tab 04/01/18 Allergies Allergy/AdvReac Type Severity Reaction Status Date / Time Penicillins Allergy Unknown Verified 02/29/20 11:01 Childhood Review of Systems ROS Statement: Those systems with pertinent positive or pertinent negative responses have been documented in the HPI. ROS Other: All systems not noted in ROS Statement are negative. Past Medical History Past Medical History: Coronary Artery Disease (CAD), Heart Failure, COPD, GERD/Reflux, Hyperlipidemia, Hypertension, Renal Disease, Thyroid Disorder, Vascular Disorder Additional Past Medical History / Comment(s): Chronic kidney failure with hemodialysis on Saturday, Saturday and Fridays with last time being 02/22/20 in ER, chronic anemia, mineral bone disease, cardiomyopathy, "blood clot in my heart years ago", recent back pain, recent aortic aneurysm repair/bilateral néstor nting at [facility], hypothyroid, post op I&D L submax abscess -pt had respiratory failure and was vented. 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 Past Anesthesia/Blood Transfusion Reactions: No Reported Reaction Additional Past Anesthesia/Blood Transfusion Reaction / Comment(s): Pt has received blood without reaction. Date of Last Stent Placement:: 2017 Past Psychological History: No Psychological Hx Reported Smoking Status: Current every day smoker Past Alcohol Use History: None Reported Past Drug Use History: None Reported - Past Family History Father Family Medical History: Diabetes Mellitus, Hypertension, Renal Disease Additional Family Medical History / Comment(s): Father was on hemodialysis Mother Family Medical History: Hypertension General Exam Limitations: no limitations Course Vital Signs 02/29/20 02/29/20 10:16 11:13 Temperature 98.2 F Pulse Rate 87 89 Respiratory 16 16 Rate Blood Pressure 133/83 123/45 O2 Sat by Pulse 98 93 L Oximetry Medical Decision Making - Lab Data Result diagrams: 02/29/20 10:42 02/29/20 10:42 Lab Results 02/29/20 02/29/20 02/29/20 Range/Units 10:42 10:42 10:42 WBC 5.9 (3.8-10.6) k/uL RBC 2.65 L (4.30-5.90) m/uL Hgb 7.7 L (13.0-17.5) gm/dL Hct 25.0 L (39.0-53.0) % MCV 94.4 (80.0-100.0) fL MCH 29.1 (25.0-35.0) pg MCHC 30.8 L (31.0-37.0) g/dL RDW 15.9 H (11.5-15.5) % Plt Count 212 (150-450) k/uL Neutrophils % 76 % Lymphocytes % 10 % Monocytes % 1 % Eosinophils % 13 % Basophils % 0 % Neutrophils # 4.5 (1.3-7.7) k/uL Lymphocytes # 0.6 L (1.0-4.8) k/uL Monocytes # 0.1 (0-1.0) k/uL Eosinophils # 0.8 H (0-0.7) k/uL Basophils # 0.0 (0-0.2) k/uL Hypochromasia Slight PT 10.2 (9.0-12.0) sec INR 1.0 (<1.2) APTT 45.1 H (22.0-30.0) sec Sodium 131 L (137-145) mmol/L Potassium 3.9 (3.5-5.1) mmol/L Chloride 95 L (98-107) mmol/L Carbon Dioxide 28 (22-30) mmol/L Anion Gap 8 mmol/L BUN 17 (9-20) mg/dL Creatinine 3.84 H (0.66-1.25) mg/dL Est GFR (CKD-EPI)AfAm 19 (>60 ml/min/1.73 sqM) Est GFR (CKD-EPI)NonAf 16 (>60 ml/min/1.73 sqM) Glucose 83 (74-99) mg/dL Calcium 9.2 (8.4-10.2) mg/dL Total Bilirubin 0.6 (0.2-1.3) mg/dL AST 37 (17-59) U/L ALT 16 (4-49) U/L Alkaline Phosphatase 77 (38-126) U/L Total Protein 5.5 L (6.3-8.2) g/dL Albumin 3.0 L (3.5-5.0) g/dL Disposition Clinical Impression: Anemia Disposition: ADMITTED IP TO THIS HOSP Condition: Fair Referrals: Srini Hastings MD [Primary Care Provider] - 1-2 days Decision Time: 11:25
[2020-02-29] MEDS ORDERED: MORPHINE SULFATE 4 MG/ML SYRINGE IVP STA (10:54)
[2020-02-29 10:58] LABS: Basophils % (A) 0 %; Eosinophils # (A) 0.8 k/uL (0-0.7); Eosinophils % (A) 13 %; HGB 7.7 gm/dL (13.0-17.5); Hypochromasia Slight; Lymphocytes # (A) 0.6 k/uL (1.0-4.8); Lymphocytes % (A) 10 %; MCH 29.1 pg (25.0-35.0); MCHC 30.8 g/dL (31.0-37.0); MCV 94.4 fL (80.0-100.0); Mean Platelet Volume 7.3; Monocytes # (A) 0.1 k/uL (0-1.0); Monocytes % (A) 1 %; Neutrophils # (A) 4.5 k/uL (1.3-7.7); Neutrophils % (A) 76 %; Platelet Count 212 k/uL (150-450); RBC 2.65 m/uL (4.30-5.90); RDW 15.9 % (11.5-15.5); WBC 5.9 k/uL (3.8-10.6)
[2020-02-29 11:09] LABS: Partial Thromboplastin Time 45.1 sec (22.0-30.0); Prothrombin Time 10.2 sec (9.0-12.0)
[2020-02-29 11:12] LABS: Calcium 9.2 mg/dL (8.4-10.2); Potassium 3.9 mmol/L (3.5-5.1); Total Bilirubin 0.6 mg/dL (0.2-1.3); Total Protein 5.5 g/dL (6.3-8.2)
[2020-02-29] MEDS ORDERED: ONDANSETRON 4 MG/2 ML VIAL IVP PRN (11:22)
[2020-02-29] MEDS ORDERED: NALOXONE 0.4 MG/ML 1 ML VIAL IV PRN (11:22)
[2020-02-29] MEDS ORDERED: ALBUTEROL HFA INHALER INHALATION PRN (13:11)
[2020-02-29] MEDS ORDERED: FUROSEMIDE 80 MG TAB PO PRN (13:11)
[2020-02-29] MEDS ORDERED: ATORVASTATIN 80 MG TAB PO SCH (13:15)
[2020-02-29 14:29] VITALS: BMI 23.7
[2020-02-29] MEDS: NICOTINE 21MG/24HR PATCH TRANSDERM SCH (14:43)
[2020-02-29] MEDS: CYCLOBENZAPRINE 10 MG TAB PO PRN ×2 (14:47→22:01)
--- NOTE | 2020-02-29 14:58 | P.HPIM ---
History of Present Illness 59-year-old male was sent in from jail because of lab abnormality that his hemoglobin is 7.7 patient denied any fever chills shortness of breath lightheadedness chest pain. Patient has an state is in renal disease modalities dependent patient hemoglobin was apparently higher after his discharge from [facility] which was 12 patient denied any blood in the stools dark stools hematuria hematemesis. Patient's last bowel movement was yesterday. Serum ferritin B12 and folate levels were ordered. Review of Systems REVIEW OF SYSTEMS: CONSTITUTIONAL: No fever, no malaise, no fatigue. HEENT: No recent visual problems or hearing problems. Denied any sore throat. CARDIOVASCULAR: No chest pain, orthopnea, PND, no palpitations, no syncope. PULMONARY: No shortness of breath, no cough, no hemoptysis. GASTROINTESTINAL: No diarrhea, no nausea, no vomiting, no abdominal pain. NEUROLOGICAL: No headaches, no weakness, no numbness. HEMATOLOGICAL: Denies any bleeding or petechiae. GENITOURINARY: Denies any burning micturition, frequency, or urgency. MUSCULOSKELETAL/RHEUMATOLOGICAL: Denies any joint pain, swelling, or any muscle pain. ENDOCRINE: Denies any polyuria or polydipsia. The rest of the 14-point review of systems is negative. Past Medical History Past Medical History: Coronary Artery Disease (CAD), Heart Failure, COPD, FLETCHER D/Reflux, Hyperlipidemia, Hypertension, Renal Disease, Thyroid Disorder, Vascular Disorder Additional Past Medical History / Comment(s): Pt recently admitted to [facility] on 02/22/20 with need for hemodialysis/hypokalemia, fall with facial hematoma. Other hx: Pt states he had recent hospitalization at [facility] and tx for sepsis (blood infection) with picc line/antibiotic, chronic kidney failure with hemodialysis on Saturday, Saturday and Fridays, chronic anemia, mineral bone dis ease, cardiomyopathy, "blood clot in my heart years ago", recent back pain, recent aortic aneurysm repair/bilateral stenting at [facility], weakness/falls, hypothyroid, post op I&D L submax abscess -pt had respiratory failure and was vented. 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 Past Anesthesia/Blood Transfusion Reactions: No Reported Reaction Additional Past Anesthesia/Blood Transfusion Reaction / Comment(s): Pt has received blood without reaction. Date of Last Stent Placement:: 2017 Smoking Status: Current every day smoker - Past Family History Father Family Medical History: Diabetes Mellitus, Hypertension, Renal Disease Additional Family Medical History / Comment(s): Father was on hemodialysis Mother Family Medical History: Hypertension Medications and Allergies Home Medications Medication Instructions Recorded Confirmed Type Aspirin EC [Ecotrin Low Dose] 81 mg PO DAILY 01/16/18 02/29/20 History Citalopram Hydrobromide [CeleXA] 20 mg PO QAM 01/16/18 02/29/20 History Levothyroxine Sodium [Synthroid] 75 mcg PO DAILY 01/16/18 02/29/20 History Magnesium Oxide [Mag-Ox] 400 mg PO DAILY 01/16/18 02/29/20 History allopurinoL [Zyloprim] 100 mg PO QAM 01/16/18 02/29/20 History carvediloL [Coreg*] 12.5 mg PO AC-BID #60 tab 01/30/18 02/29/20 Rx hydrALAZINE HCL [Apresoline] 25 mg PO TID #90 tab 04/01/18 02/29/20 Rx Albuterol Inhaler [Ventolin Hfa 2 puff INHALATION RT-Q6H PRN 11/30/19 02/29/20 History Inhaler] Famotidine [Pepcid] 20 mg PO DAILY 11/30/19 02/29/20 History busPIRone HCl [Buspar] 20 mg PO BID 11/30/19 02/29/20 History Atorvastatin [Lipitor] 80 mg PO DIRECTED 02/22/20 02/29/20 History Auryxia 210mg 210 mg PO TID 02/22/20 02/29/20 History Cholecalciferol [Vitamin D3 (25 1,000 unit PO DAILY 02/22/20 02/29/20 History Mcg = 1000 Iu)] Clopidogrel Bisulfate [Plavix] 75 mg PO DAILY 02/22/20 02/29/20 History Cyclobenzaprine [Flexeril] 10 mg PO TID 02/22/20 02/29/20 History Furosemide [Lasix] 80 mg PO BID PRN 02/22/20 02/29/20 History Gabapentin [Neurontin] 100 mg PO TID PRN 02/22/20 02/29/20 History Magnesium Oxide [Magox 400] 400 mg PO DAILY 02/22/20 02/29/20 History Renocaps 1 cap PO HS 02/22/20 02/29/20 History amLODIPine [Norvasc] 10 mg PO DAILY 02/22/20 02/29/20 History Allergies Allergy/AdvReac Type Severity Reaction Status Date / Time Penicillins Allergy Unknown Verified 02/29/20 13:28 Childhood Physical Exam Vitals: Vital Signs Temp Pulse Resp BP Pulse Ox 02/29/20 14:00 98.5 F 85 16 106/68 93 L 02/29/20 13:00 16 02/29/20 12:00 85 16 106/68 93 L 02/29/20 11:13 89 16 123/45 93 L 02/29/20 10:16 98.2 F 87 16 133/83 98 Intake and Output 02/28/20 02/29/20 02/29/20 22:59 06:59 14:59 Other: Weight 77.111 kg PHYSICAL EXAMINATION: GENERAL: The patient is alert and oriented x3, not in any acute distress. Well developed, well nourished. HEENT: Pupils are round and equally reacting to light. EOMI. No scleral icterus. No conjunctival pallor. Normocephalic, atraumatic. No pharyngeal erythema. No thyromegaly. CARDIOVASCULAR: S1 and S2 present. No murmurs, rubs, or gallops. PULMONARY: Chest is clear to auscultation, no wheezing or crackles. ABDOMEN: Soft, nontender, nondistended, normoactive bowel sounds. No palpable organomegaly. MUSCULOSKELETAL: No joint swelling or deformity. 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 NEUROLOGICAL: Gross neurological examination did not reveal any focal deficits. SKIN: No rashes. Results CBC & Chem 7: 02/29/20 10:42 02/29/20 10:42 Labs: Abnormal Lab Results - Last 24 Hours (Table) 02/29/20 02/29/20 02/29/20 Range/Units 10:42 10:42 10:42 RBC 2.65 L (4.30-5.90) m/uL Hgb 7.7 L (13.0-17.5) gm/dL Hct 25.0 L (39.0-53.0) % MCHC 30.8 L (31.0-37.0) g/dL RDW 15.9 H (11.5-15.5) % Lymphocytes # 0.6 L (1.0-4.8) k/uL Eosinophils # 0.8 H (0-0.7) k/uL APTT 45.1 H (22.0-30.0) sec Sodium 131 L (137-145) mmol/L Chloride 95 L (98-107) mmol/L Creatinine 3.84 H (0.66-1.25) mg/dL Total Protein 5.5 L (6.3-8.2) g/dL Albumin 3.0 L (3.5-5.0) g/dL Thrombosis Risk Factor Assmnt - Choose All That Apply Any of the Below Risk Factors Present?: Yes Each Factor Represents 1 point: Abnormal pulmonary function (COPD), Age 41-60 ye ars Other Risk Factors: No Other congenital or acquired thrombophilia - If yes, enter type in comment: No Thrombosis Risk Factor Assessment Total Risk Factor Score: 2 Thrombosis Risk Factor Assessment Level: Low Risk Assessment and Plan Plan: -Acute hypoxic respiratory failure probably secondary to pulmonary edema patient received only 2 hours of hemodialysis patient will leave may need another session of hemodialysis tomorrow after that patient will be discharged -Anemia which appears to be chronic anemia anemia of chronic disease and may be a competent of iron deficiency continue with the workup for anemia is no evidence of acute GI bleed patient's hemoglobin when he was discharged on this hospital last time was around 7.2 and it's around 7.7. 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
--- NOTE | 2020-02-29 14:59 | XR ---
EXAMINATION TYPE: XR chest 2V DATE OF EXAM: 02/29/2020 CLINICAL HISTORY: Pulmonary edema TECHNIQUE: Frontal and lateral views of the chest are obtained. COMPARISON: 11/30/2019 chest radiograph FINDINGS: Left-sided PICC distal tip at the cavoatrial junction. Abdominal aortic stent grafting com pletely visualized. The cardiomediastinal silhouette is not significantly changed versus 11/30/2019. T here is pulmonary vascular congestion and pulmonary edema. Small right pleural effusion. No pneumotho rax. The osseous structures are intact. IMPRESSION: Pulmonary vascular congestion, pulmonary edema, and small right pleural effusion.
[2020-02-29] MEDS ORDERED: hydrALAZINE HCL 25 MG TAB PO SCH (16:00)
[2020-02-29] MEDS: SODIUM CHLORIDE 0.9% 1,000 ML IV SCH (16:23)
[2020-02-29] MEDS: AURYXIA 210 MG PO SCH ×2 (16:24→22:11)
[2020-02-29] MEDS: carvediloL 12.5 MG TAB PO SCH (19:17)
[2020-02-29] MEDS: SYMBICORT 160-4.5 MCG INHALER INHALATION SCH (19:25)
--- NOTE | 2020-02-29 21:04 | CONS ---
CONSULTATION DATE OF DICTATION: 02/29/2020 REASON FOR CONSULTATION: Anemia. HISTORY OF PRESENT ILLNESS: The patient is a 59-year-old pleasant white male with history of end-stage renal disease, on hemodialysis, who was admitted to the hospital when he presented with shortness of breath that started for the last 2 days' duration. In the ER, he was noted to have a hemoglobin of 7.7 g/dL and hence we are consulted in regard to this issue. The patient denies any abdominal pain. He reports no nausea or vomiting. No rectal bleeding or melena. No prior history of peptic ulcer disease or recent NSAID use. On review of the records, his baseline hemoglobin is around 8 to 8.5 g/dL. At the time of admission to the hospital hemoglobin was 7.7 g/dL. His last EGD and colonoscopy were several years ago. PAST MEDICAL HISTORY: Significant for end-stage renal disease, on hemodialysis, history of hypertension, hyperlipidemia, anemia of chronic disease, congestive heart failure, gastroesophageal reflux disease, hypothyroidism, peripheral vascular disease. PAST SURGICAL HISTORY: Left arm amputation, cardiac catheterization with stent placement, hemodialysis catheter placement, bilateral leg stents, aortic aneurysm repair. SOCIAL HISTORY: Chronic smoker. Occasional alcohol use. FAMILY HISTORY: Father has diabetes mellitus, hypertension and chronic disease. Mother had hypertension. MEDICATIONS: Medications at home include aspirin, Celexa, Synthroid, magnesium oxide, Zyloprim, Coreg, apresoline, Pepcid, BuSpar, Lipitor, Plavix, Flexeril, Lasix, Neurontin, Vimpat, albuterol. ALLERGIES: PENICILLIN. REVIEW OF SYSTEMS: CARDIOPULMONARY: He does complain of some shortness of breath but no chest pain. GENITOURINARY: Unremarkable. SKIN: Unremarkable. ENDOCRINE: Unremarkable. PSYCHIATRIC: Unremarkable. NEUROLOGY: Unremarkable. ENT/VISION: Unremarkable. CONSTITUTIONAL: No weight loss. No fever, chills, night sweats. PHYSICAL EXAMINATION: He appears comfortable. No apparent distress. VITAL SIGNS: Stable. Blood pressure is 133/98, pulse rate 95, temperature 98.3. HEENT examination unremarkable. Conjunctivae pink. Sclerae anicteric. Oral cavity no lesions. NECK: No JVD or lymph node enlargement. CHEST: Clear to auscultation. HEART: Regular rate and rhythm. ABDOMEN: Soft. It was non-tender, non-distended. Bowel sounds are positive. No organomegaly. EXTREMITIES: Amputation of left arm. No pedal edema. SKIN: No rashes. NEUROLOGIC: Alert and oriented x3. No focal deficits. LABS: WBC 5.9, hemoglobin 7.7, platelets normal. Basic metabolic panel is within normal limits. PT 10.2, INR is 1. AST, ALT, T-bilirubin and alkaline phosphatase are normal. BUN is 17, creatinine 3.85. Albumin 3. IMPRESSION: 1. Normocytic anemia. Clinically no evidence of active ongoing bleeding. The patient has history of chronic kidney disease with end-stage renal disease, on hemodialysis. At this time we are most likely dealing with anemia of chronic disease. On review of his labs in the last 6 months, his baseline hemoglobin is between 8 and 8.5 g/dL. Last EGD and colonoscopy were several years ago. 2. End-stage renal disease, on hemodialysis. 3. History of hypertension. 4. History of coronary artery disease and peripheral vascular disease. RECOMMENDATIONS: 1. Obtain iron studies, serum B12 and folate levels. 2. Monitor CBC on a daily basis. 3. Transfuse if his hemoglobin is less than 7. 4. Based on the iron indices, will decide if he needs any endoscopic intervention. Will follow with you closely. Thank you for this consultation. MMODL / IJN: [id number] /
[2020-02-29] MEDS: FOLIC ACID-VIT B COMPLEX-VIT C 1 CAP PO SCH (21:53)
[2020-02-29] MEDS: busPIRone HCl 10 MG TAB PO SCH (21:53)
[2020-03-01] MEDS: SYMBICORT 160-4.5 MCG INHALER INHALATION SCH ×2 (06:56→19:20)
[2020-03-01 07:28] LABS: HCT 22.2 % (39.0-53.0); Hypochromasia Marked; MCH 29.5 pg (25.0-35.0); MCHC 30.5 g/dL (31.0-37.0); MCV 96.7 fL (80.0-100.0); Mean Platelet Volume 7.3; Platelet Count 199 k/uL (150-450); RDW 15.7 % (11.5-15.5); Reticulocyte % 4.7 % (0.5-2.0); WBC 5.6 k/uL (3.8-10.6)
[2020-03-01 07:50] LABS: HGB 6.8 gm/dL (13.0-17.5)
[2020-03-01] MEDS: GABAPENTIN 100 MG CAP PO PRN ×2 (08:00→13:15)
[2020-03-01] MEDS: CYCLOBENZAPRINE 10 MG TAB PO PRN ×2 (08:00→13:15)
[2020-03-01] MEDS ORDERED: DARBEPOETIN ALFA 60 MCG/0.3 ML SYRINGE SQ SCH (12:00)
[2020-03-01 12:13] LABS: % Iron Saturation 10.1 (15.00-50.00); Ferritin 861.4 ng/mL (22.0-322.0); Folate, Serum 14.4 ng/mL
[2020-03-01] MEDS: AURYXIA 210 MG PO SCH ×3 (13:09→20:54)
--- NOTE | 2020-03-01 14:45 | P.PN ---
Subjective Patient's hemoglobin is 6.9 because of which patient is a 72 into PRBC transfusion patient is receiving hemodialysis today. There is no evidence of acute GI bleed at this time but gastric body will evaluate the patient on B12 and folate are within normal limits. Patient's serum iron and TIBC were low. Patient probably will be discharged tomorrow. Constitutional: Denied any fatigue denied any fever. Cardio vascular: denied any chest pain, palpitations Gastrointestinal denied any nausea vomiting Pulmonary: Denied any shortness of breath cough Neurologic denied any new focal deficits All inpatient medications were reviewed and appropriate changes in these medications as dictated in the interval history and assessment and plan. Objective - Vital Signs Vital signs: Vital Signs Temp 98.2 F 03/01/20 13:47 Pulse 68 03/01/20 13:47 Resp 18 03/01/20 13:47 BP 125/70 03/01/20 13:47 Pulse Ox 96 03/01/20 13:00 Intake & Output 02/29/20 03/01/20 03/01/20 18:59 06:59 18:59 Intake Total 0 Balance 0 Weight 77.111 kg Intake: Blood Product 0 Rc As-1 Unit 0 [id number] Other: # Voids 2 # Bowel Movements 1 - Exam PHYSICAL EXAMINATION: GENERAL: The patient is alert and oriented x3, not in any acute distress. Well developed, well nourished. HEENT: Pupils are round and equally reacting to light. EOMI. No scleral icterus. No conjunctival pallor. Normocephalic, atraumatic. No pharyngeal erythema. No thyromegaly. CARDIOVASCULAR: S1 and S2 present. No murmurs, rubs, or gallops. PULMONARY: Chest is clear to auscultation, no wheezing or crackles. ABDOMEN: Soft, nontender, nondistended, normoactive bowel sounds. No palpable organomegaly. MUSCULOSKELETAL: No joint swelling or deformity. 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 NEUROLOGICAL: Gross neurological examination did not reveal any focal deficits. SKIN: No rashes. - Labs CBC & Chem 7: 03/01/20 07:11 02/29/20 10:42 Labs: Abnormal Lab Results - Last 24 Hours (Table) 08/17/20 08/18/20 08/18/20 Range/Units 10:42 07:11 07:11 RBC 2.30 L (4.30-5.90) m/uL Hgb 6.8 L* (13.0-17.5) gm/dL Hct 22.2 L (39.0-53.0) % MCHC 30.5 L (31.0-37.0) g/dL RDW 15.7 H (11.5-15.5) % Retic Count 4.7 H (0.5-2.0) % Iron 20 L (65-175) ug/dL TIBC 198 L (228-460) ug/dL % Saturation 10.10 L (15.00-50.00) Ferritin 861.4 H (22.0-322.0) ng/mL Crossmatch See Detail Assessment and Plan Plan: -Acute hypoxic respiratory failure probably secondary to pulmonary edema is undergoing hemodialysis today -Anemia which appears to be secondary to anemia of chronic kidney disease no evidence of acute GI bleed with hemoglobin is 6.9 will receive 1 itself PRBC transfusion -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
[2020-03-01] MEDS: carvediloL 12.5 MG TAB PO SCH ×2 (15:45→16:58)
[2020-03-01] MEDS: CITALOPRAM HYDROBROMIDE 20 MG TAB PO SCH (16:57)
[2020-03-01] MEDS: NICOTINE 21MG/24HR PATCH TRANSDERM SCH (16:57)
[2020-03-01] MEDS: ASPIRIN 81 MG PO SCH (16:57)
[2020-03-01] MEDS: busPIRone HCl 10 MG TAB PO SCH ×2 (16:58→20:53)
[2020-03-01] MEDS: FAMOTIDINE 20 MG TAB PO SCH (16:58)
[2020-03-01] MEDS: CLOPIDOGREL 75 MG TAB PO SCH (16:58)
[2020-03-01] MEDS: amLODIPine 10 MG TAB PO SCH (16:58)
[2020-03-01] MEDS: PANTOPRAZOLE 40 MG/10 ML VIAL IV SCH (16:58)
[2020-03-01] MEDS: allopurinoL 100 MG TAB PO SCH (16:58)
[2020-03-01] MEDS: SODIUM CHLORIDE 0.9% 1,000 ML IV SCH (16:59)
[2020-03-01] MEDS: FOLIC ACID-VIT B COMPLEX-VIT C 1 CAP PO SCH (20:53)
--- NOTE | 2020-03-01 22:12 | PN ---
PROGRESS NOTE DATE OF DICTATION: 03/01/2020 This patient is a 59-year-old white male with history of end-stage renal disease, on hemodialysis, currently undergoing dialysis. He was seen in consultation yesterday for evaluation of anemia. His hemoglobin dropped to 6.9 g/dL. Yesterday it was 7.1 g/dL. He is currently receiving one unit of PRBC transfusion during the dialysis. He denies any abdominal pain, reports no nausea, vomiting. No rectal bleeding or melena. He did have stool studies done that showed ferritin elevated at 861. Iron saturation was 10%. Serum vitamin B12 and folate levels are normal. BUN was 17, creatinine 3.84. PHYSICAL EXAMINATION: He appears comfortable. No apparent distress. Vital signs are stable. Blood pressure 133/80, pulse rate 74, temperature 98.4. HEENT examination unremarkable. Conjunctivae pink. Sclerae anicteric. Oral cavity no lesions. NECK: No JVD or lymph node enlargement. CHEST: Clear to auscultation. HEART: Regular rate and rhythm. ABDOMEN: Soft. Non-tender, non-distended. Bowel sounds are positive. No organomegaly. EXTREMITIES: No pedal edema. NEUROLOGIC: Alert and oriented x3. No focal deficits. LABS: Hemoglobin 6.9, MCV normal. Ferritin 859, iron saturation 10%. IMPRESSION: 1. Normocytic anemia. Iron indices not consistent with iron deficiency anemia. Most likely we are dealing with anemia of chronic disease secondary to chronic underlying kidney disease. 2. End-stage renal disease, on hemodialysis. 3. Severe anemia requiring one unit of PRBC transfusion today. 4. History of aortic aneurysm daptomycin. RECOMMENDATIONS: 1. Monitor CBC on a daily basis. 2. Since there is no evidence of iron deficiency anemia, we will not plan on any endoscopic intervention at the present time. Continue with PRBC transfusion if the hemoglobin is less than 7. Thank you for this consultation. We will sign off at this time. Please call us if needed. MMODL / IJN: [id number] /
--- NOTE | 2020-03-01 22:24 | CONS ---
CONSULTATION REASON FOR CONSULT: End-stage renal disease. HISTORY OF PRESENT ILLNESS: The patient is a 59-year-old male who was admitted to the hospital yesterday from dialysis, as his hemoglobin was significantly low at about 7.7. Patient denied any history of active bleeding. No prior history of peptic ulcer disease recently. Patient is maintained on a Saturday, Saturday, Saturday schedule for dialysis. His hemoglobin was 6.8 g/dL today. He will be receiving packed RBCs transfusion. No abdominal pain, fever, chills, nausea, vomiting. PAST MEDICAL HISTORY: End-stage renal disease, hypertension, coronary artery disease, COPD, gastroesophageal reflux disease, peripheral vascular disease, hyperlipidemia. 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 SOCIAL HISTORY: Positive for smoking. No history of drug abuse or alcohol abuse. MEDICATIONS: Medications prior to admission included aspirin, Celexa, Synthroid, magnesium, Zyloprim, Coreg, hydralazine, Pepcid, BuSpar, Lipitor, Auryxia, Plavix, Flexeril, Lasix, Neurontin, Mag-Ox, Nephrocaps, Norvasc. ALLERGIES: ALLERGIES include PENICILLIN. REVIEW OF SYSTEMS: As per HPI. Other systems negative. PHYSICAL EXAMINATION: Patient is comfortable, awake, not in any acute distress. Blood pressure was 140/94, heart rate 74 per minute. He is afebrile. EXAMINATION OF THE HEART: S1 and S2. EXAMINATION OF LUNGS: Bilateral breath sounds are heard. ABDOMEN: Soft, non-tender. Examination of lower extremities shows no evidence of edema. DATABASE ADMINISTRATOR exam is grossly intact. LABS: Labs show hemoglobin 6.8 g/dL, serum creatinine 3.84 from yesterday. ASSESSMENT: 1. End-stage renal disease, on hemodialysis on a Saturday, Saturday, Saturday schedule. We will arrange for hemodialysis today. 2. Volume overload. We will plan for about 2 to 3 liters of ultrafiltration. 3. Anemia with no active bleeding noted. Evidence of iron deficiency noted on iron profile. I did discuss GI consultation with him and at this time patient states that he does not want any kind of scope. We will maintain him on the Aranesp and I will order IV iron. PLAN: Hemodialysis today. Add IV iron. Continue with Aranesp. Repeat labs in a.m. Consider a GI consult. MMODL / IJN: [id number] /
[2020-03-02 07:05] LABS: Glucose,Whole Blood 106 mg/dL (75-99)
[2020-03-02] MEDS: carvediloL 12.5 MG TAB PO SCH (07:07)
[2020-03-02] MEDS: IPRATROPIUM-ALBUTEROL 3 ML NEB INHALATION PRN ×3 (07:31→15:02)
[2020-03-02] MEDS: NICOTINE 21MG/24HR PATCH TRANSDERM SCH (08:40)
[2020-03-02] MEDS: busPIRone HCl 10 MG TAB PO SCH (08:41)
[2020-03-02] MEDS: FAMOTIDINE 20 MG TAB PO SCH (08:42)
[2020-03-02] MEDS: ASPIRIN 81 MG PO SCH (08:42)
[2020-03-02] MEDS: GABAPENTIN 100 MG CAP PO PRN (08:42)
[2020-03-02] MEDS: amLODIPine 10 MG TAB PO SCH (08:42)
[2020-03-02] MEDS: allopurinoL 100 MG TAB PO SCH (08:43)
[2020-03-02] MEDS: PANTOPRAZOLE 40 MG/10 ML VIAL IV SCH (08:43)
[2020-03-02] MEDS: CITALOPRAM HYDROBROMIDE 20 MG TAB PO SCH (08:43)
[2020-03-02] MEDS: CLOPIDOGREL 75 MG TAB PO SCH (08:44)
[2020-03-02] MEDS: CYCLOBENZAPRINE 10 MG TAB PO PRN (08:45)
[2020-03-02] MEDS: AURYXIA 210 MG PO SCH (08:51)
[2020-03-02] MEDS ORDERED: SODIUM FERRIC GLUCONAT-SUCROSE 125 MG in SODIUM CHLORIDE 0.9% 100 ML IVPB SCH (09:00)
[2020-03-02 09:13] LABS: Anisocytosis Slight; Basophils % (A) 1 %; Eosinophils # (A) 0.8 k/uL (0-0.7); Eosinophils % (A) 13 %; HCT 28.5 % (39.0-53.0); Hypochromasia Moderate; Lymphocytes # (A) 0.8 k/uL (1.0-4.8); Lymphocytes % (A) 13 %; MCH 29.3 pg (25.0-35.0); MCHC 30.9 g/dL (31.0-37.0); MCV 94.8 fL (80.0-100.0); Mean Platelet Volume 7.3; Monocytes # (A) 0.4 k/uL (0-1.0); Monocytes % (A) 6 %; Neutrophils # (A) 4.2 k/uL (1.3-7.7); Neutrophils % (A) 67 %; Platelet Count 218 k/uL (150-450); RBC 3.01 m/uL (4.30-5.90); RDW 16.1 % (11.5-15.5); WBC 6.3 k/uL (3.8-10.6)
[2020-03-02 09:21] LABS: HGB 8.8 gm/dL (13.0-17.5)
[2020-03-02 11:07] LABS: Glucose,Whole Blood 112 mg/dL (75-99)
[2020-03-02] MEDS: SYMBICORT 160-4.5 MCG INHALER INHALATION SCH (11:10)
[2020-03-02] MEDS: SODIUM CHLORIDE 0.9% 1,000 ML IV SCH (14:00)
--- NOTE | 2020-03-02 15:08 | P.DS ---
Providers Date of admission: 03/01/20 11:14 Expected date of discharge: 03/02/20 Attending physician: June Duenas Consults: 02/29/20 11:23 Consult Physician Routine Consulting Provider: Kristine Delatorre Consult Reason/Comments: gi bleed? 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 Patient will follow-up with Dr. Hastings upon discharge. Patient also instructed to continue with hemodialysis Saturday/Saturday/Saturday in the outpatient setting. Total time taken is greater than 35 minutes. History of present illness This is an 59-year-old male who was recently admitted with low hemoglobin and was being closely monitored. Nephrology was following. Patient was also evaluated by GI and there are no active signs of bleeding noted and patient does not want to undergo endoscopic intervention at this time. Patient will follow- up in the outpatient setting as needed. Patient's hemoglobin yesterday was found to be 6.9 and given a unit of PRBCs and hemoglobin today is 8.8. Patient is to receive dialysis today and then will be discharged after. Patient is maintained on Saturday/Saturday/Saturday schedule and will continue. Patient will continue on iron supplements in the outpatient setting. Patient is receiving iron infusion today. Currently no reports of chest pain, worsening shortness of breath, or palpitations. Patient is afebrile. No reports of nausea or vomiting and patient is tolerating diet. Patient will be discharged home today. On exam vital signs are stable. Temp is 98.7 F, pulse is 75, respirations are 16, blood pressure is 101/49, oxygen saturation is 93 % on room air. Cardio S1, S2 are muffled. Respiratory shows diminished breath sounds at the bases with no wheezing or rhonchi noted. Abdomen is soft and nontender. Nervous system shows no focal deficits. Please refer to medication reconciliation sheet for a list of medications. Patient Condition at Discharge: Fair Plan - Discharge Summary Discharge Rx Participant: No New Discharge Prescriptions: New Darbepoetin Han [Aranesp] 60 mcg SQ Q7D syringe Ferrous Sulfate [Feosol] 325 mg PO DAILY 30 Days #30 tab Budesonide-Formot 160-4.5 Mcg [Symbicort 160-4.5 Mcg Inhaler] 2 puff INHALATION RT-BID 30 Days #1 puff Continue Citalopram Hydrobromide [CeleXA] 20 mg PO QAM Aspirin EC [Ecotrin Low Dose] 81 mg PO DAILY Levothyroxine Sodium [Synthroid] 75 mcg PO DAILY Magnesium Oxide [Mag-Ox] 400 mg PO DAILY allopurinoL [Zyloprim] 100 mg PO QAM carvediloL [Coreg*] 12.5 mg PO AC-BID #60 tab Famotidine [Pepcid] 20 mg PO DAILY busPIRone HCl [Buspar] 20 mg PO BID Albuterol Inhaler [Ventolin Hfa Inhaler] 2 puff INHALATION RT-Q6H PRN PRN Reason: Shortness Of Breath Cholecalciferol [Vitamin D3 (25 Mcg = 1000 Iu)] 1,000 unit PO DAILY Atorvastatin [Lipitor] 80 mg PO DIRECTED Auryxia 210mg 210 mg PO TID Renocaps 1 cap PO HS amLODIPine [Norvasc] 10 mg PO DAILY Clopidogrel Bisulfate [Plavix] 75 mg PO DAILY Cyclobenzaprine [Flexeril] 10 mg PO TID Furosemide [Lasix] 80 mg PO BID PRN PRN Reason: Edema Gabapentin [Neurontin] 100 mg PO TID PRN PRN Reason: Pain Magnesium Oxide [Magox 400] 400 mg PO DAILY Discontinued hydrALAZINE HCL [Apresoline] 25 mg PO TID #90 tab Discharge Medication List Aspirin EC [Ecotrin Low Dose] 81 mg PO DAILY 01/16/18 [History] Citalopram Hydrobromide [CeleXA] 20 mg PO QAM 01/16/18 [History] Levothyroxine Sodium [Synthroid] 75 mcg PO DAILY 01/16/18 [History] Magnesium Oxide [Mag-Ox] 400 mg PO DAILY 01/16/18 [History] allopurinoL [Zyloprim] 100 mg PO QAM 01/16/18 [History] carvediloL [Coreg*] 12.5 mg PO AC-BID #60 tab 01/30/18 [Rx] Albuterol Inhaler [Ventolin Hfa Inhaler] 2 puff INHALATION RT-Q6H PRN 11/30/19 [History] Famotidine [Pepcid] 20 mg PO DAILY 11/30/19 [History] busPIRone HCl [Buspar] 20 mg PO BID 11/30/19 [History] Atorvastatin [Lipitor] 80 mg PO DIRECTED 02/22/20 [History] Auryxia 210mg 210 mg PO TID 02/22/20 [History] Cholecalciferol [Vitamin D3 (25 Mcg = 1000 Iu)] 1,000 unit PO DAILY 02/22/20 [History] Clopidogrel Bisulfate [Plavix] 75 mg PO DAILY 02/22/20 [History] Cyclobenzaprine [Flexeril] 10 mg PO TID 02/22/20 [History] Furosemide [Lasix] 80 mg PO BID PRN 02/22/20 [History] Gabapentin [Neurontin] 100 mg PO TID PRN 02/22/20 [History] Magnesium Oxide [Magox 400] 400 mg PO DAILY 02/22/20 [History] Renocaps 1 cap PO HS 02/22/20 [History] amLODIPine [Norvasc] 10 mg PO DAILY 02/22/20 [History] Budesonide-Formot 160-4.5 Mcg [Symbicort 160-4.5 Mcg Inhaler] 2 puff INHALATION RT-BID 30 Days #1 puff 03/02/20 [Rx] Darbepoetin Han [Aranesp] 60 mcg SQ Q7D syringe 03/02/20 [Rx] Ferrous Sulfate [Feosol] 325 mg PO DAILY 30 Days #30 tab 03/02/20 [Rx] Follow up Appointment(s)/Referral(s): Srini Hastings MD [Primary Care Provider] - 03/07/20 8:30 am (The appointment is early because it is a hospital follow up.) Activity/Diet/Wound Care/Special Instructions: Activity Limited until follow-up Continue with renal diet low potassium, low phosphorus, low sodium Continue with hemodialysis on Saturday/Saturday/Saturday Follow-up with primary care provider upon discharge Discharge Disposition: HOME SELF-CARE
--- NOTE | 2020-03-02 21:45 | PN ---
PROGRESS NOTE Patient is seen for followup for end-stage renal disease. He is scheduled for hemodialysis today. Patient received a unit of packed RBCs yesterday. Hemoglobin today is 8.8. No active bleeding noted at this time. The patient has been started on IV iron. PHYSICAL EXAMINATION: On examination today, blood pressure was 101/49, heart rate 80 per minute. He is afebrile. EXAMINATION OF THE HEART: S1 and S2. EXAMINATION OF LUNGS: Bilateral breath sounds are heard. ABDOMEN: Soft, non-tender. Examination of lower extremities shows no evidence of edema. Patient has left below- elbow amputation. DEHYDRATOR TENDER exam is grossly intact. LABS: Labs show hemoglobin 8.8. Potassium was 3.9 on 02/29/2020. ASSESSMENT: 1. End-stage renal disease, on hemodialysis on a Saturday, Saturday, Saturday schedule. 2. Anemia with no active bleeding noted. Evidence of iron deficiency noted, maintained on IV iron. Patient is also maintained on Aranesp. He has refused to undergo any EGD or colonoscopy at this time. Therefore GI is not consulted. Will monitor his hemoglobin as outpatient. MMODL / IJN: [id number] /
[2020-03-03 14:41] VITALS: BP 98/59; PULSE 65; RESP 20; TEMP 98.6
== END 2020-03-02 17:35 | disposition home or self-care (01) | DRG 291 ==
LOC: EC 10:09 → 5NMEDONC 11:22 → 1SOBS 13:22 → 5NMEDONC 18:31 → OBSVTOIN 03-01 11:14
PROVIDERS: ADMIT Internal Medicine; ATTEND Internal Medicine
PROC: 30233N1 Transfusion of Nonautologous Red Blood Cells into Peripheral Vein, Percutaneous Approach (ICD-10-PCS; principal; 2020-03-01)
PROC: 5A1D70Z Performance of Urinary Filtration, Intermittent, Less than 6 Hours Per Day (ICD-10-PCS; 2020-03-01)
DX: I13.2 Hypertensive heart and chronic kidney disease with heart failure and with stage 5 chronic kidney disease, or end stage renal disease (principal); J96.01 Acute respiratory failure with hypoxia; N18.6 End stage renal disease; D63.1 Anemia in chronic kidney disease; I42.9 Cardiomyopathy, unspecified; E83.9 Disorder of mineral metabolism, unspecified; I50.9 Heart failure, unspecified; E03.9 Hypothyroidism, unspecified; E61.1 Iron deficiency; E78.5 Hyperlipidemia, unspecified; F17.200 Nicotine dependence, unspecified, uncomplicated; I25.10 Atherosclerotic heart disease of native coronary artery without angina pectoris; I73.9 Peripheral vascular disease, unspecified; J44.9 Chronic obstructive pulmonary disease, unspecified; K21.9 Gastro-esophageal reflux disease without esophagitis; E87.70 Fluid overload, unspecified; Z79.02 Long term (current) use of antithrombotics/antiplatelets; Z79.82 Long term (current) use of aspirin; Z79.890 Hormone replacement therapy; Z79.899 Other long term (current) drug therapy; Z99.2 Dependence on renal dialysis; Z95.5 Presence of coronary angioplasty implant and graft; Z86.79 Personal history of other diseases of the circulatory system; Z88.0 Allergy status to penicillin; Z86.14 Personal history of Methicillin resistant Staphylococcus aureus infection; Z89.212 Acquired absence of left upper limb below elbow; Z91.81 History of falling; Z83.3 Family history of diabetes mellitus; Z82.49 Family history of ischemic heart disease and other diseases of the circulatory system; Z84.1 Family history of disorders of kidney and ureter
CPT/HCPCS: 36415; 71046; 80053; 82607; 82728; 82746; 83540; 83550; 85025; 85027; 85045; 85610; 85730; 86850; 86900; 86901; 86920; 90935; 93005; 94640; 96374; 96375; 99285

== ENCOUNTER 2020-03-10 21:07 | Observation (INO) | payer MEDICARE, BC ==
[2020-03-10] MEDS ORDERED: ONDANSETRON 4 MG/2 ML VIAL IVP STA (21:46)
[2020-03-10] MEDS ORDERED: HYDROmorphone 1 MG/ML 1 ML SYRINGE IVP STA (21:46)
--- NOTE | 2020-03-10 22:23 | XR ---
EXAMINATION TYPE: XR chest 2V DATE OF EXAM: 03/10/2020 COMPARISON: 02/29/2020 HISTORY: Difficulty breathing TECHNIQUE: FINDINGS: There is blunting of the right costophrenic angle. There is mild pulmonary congestion. Hear t is enlarged. There is stent in the lower thoracic aorta and upper abdominal aorta. IMPRESSION: There is small right pleural effusion and mild infiltrate right lung base that is slightl y worse than last exam. There is probably mild heart failure. Pulmonary vascularity unchanged. Stable cardiomegaly.
[2020-03-10 22:32] LABS: Basophils # (A) 0.1 k/uL (0-0.2); Basophils % (A) 1 %; Eosinophils # (A) 0.9 k/uL (0-0.7); Eosinophils % (A) 14 %; HCT 26.5 % (39.0-53.0); HGB 8.1 gm/dL (13.0-17.5); Hypochromasia Moderate; Lymphocytes # (A) 1.2 k/uL (1.0-4.8); Lymphocytes % (A) 18 %; MCHC 30.4 g/dL (31.0-37.0); MCV 95.1 fL (80.0-100.0); Mean Platelet Volume 7.2; Monocytes # (A) 0.5 k/uL (0-1.0); Monocytes % (A) 7 %; Neutrophils # (A) 3.8 k/uL (1.3-7.7); Neutrophils % (A) 60 %; Platelet Count 219 k/uL (150-450); RBC 2.78 m/uL (4.30-5.90); WBC 6.4 k/uL (3.8-10.6)
[2020-03-10 22:40] LABS: Calcium 9.3 mg/dL (8.4-10.2); Magnesium 2.3 mg/dL (1.6-2.3); Potassium 4.5 mmol/L (3.5-5.1); Total Bilirubin 0.5 mg/dL (0.2-1.3); Total Protein 5.4 g/dL (6.3-8.2)
[2020-03-10 22:44] LABS: Partial Thromboplastin Time 36.5 sec (22.0-30.0); Prothrombin Time 10.4 sec (9.0-12.0)
--- NOTE | 2020-03-10 23:09 | US ---
EXAMINATION TYPE: US venous doppler duplex LE RT DATE OF EXAM: 03/10/2020 9:47 PM COMPARISON: NONE CLINICAL HISTORY: Right leg pain/swelling. pain right lower leg SIDE PERFORMED: right TECHNIQUE: The lower extremity deep venous system is examined utilizing real time linear array sonog sumaya with graded compression, doppler sonography and color-flow sonography. VESSELS IMAGED: External Iliac Vein (EIV) Common Femoral Vein Deep Femoral Vein Greater Saphenous Vein * Femoral Vein Popliteal Vein Small Saphenous Vein * Proximal Calf Veins (* superficial vessels) Right Leg: no evidence of DVT IMPRESSION: No sign of deep vein thrombosis in the right leg.
--- NOTE | 2020-03-10 23:11 | ED ---
General Adult HPI - General Chief complaint: Extremity Problem,Nontraumatic Stated complaint: SOB,Swelling Time Seen by Provider: 03/10/20 21:20 Source: patient, family Mode of arrival: wheelchair Limitations: no limitations - History of Present Illness Initial comments: 59-year-old male patient presents to the emergency department today for evaluation of leg pain and shortness of breath. Patient states that he recently had an aneurysm repair of his thoracic aorta. States that he is discharged a couple of weeks ago. He does have end-stage renal disease and does receive dialysis on Saturday schedule. Patient states that for his last 3-4 treatments he has had a cut short due to being very uncomfortable sitting in the dialysis chairs. States he has a lot of leg pain and is unable to remain sitting up. Patient states that his shortness of breath and leg pain has been going on since being discharged from the hospital. States the pain is located in the right lateral calf. He does admit to increased swelling in the legs over the last week. He does not take any pain medications at home. States his physician did give him a prescription for Xanax but it has not been helping. Patient admits to not feeling like he is going to be able to make his dialysis appointment tomorrow due to the pain and discomfort and would like to be admitted to the hospital. Patient denies any recent rash, fever, chills, chest pain, abdominal pain, nausea, vomiting, diarrhea, constipation, back pain, numbness, tingling, dizziness, weakness, headache, visual changes, or any other complaints. - Related Data Home Medications Medication Instructions Recorded Confirmed Aspirin EC [Ecotrin Low Dose] 81 mg PO DAILY 01/16/18 02/29/20 Citalopram Hydrobromide [CeleXA] 20 mg PO QAM 01/16/18 02/29/20 Levothyroxine Sodium [Synthroid] 75 mcg PO DAILY 01/16/18 02/29/20 Magnesium Oxide [Mag-Ox] 400 mg PO DAILY 01/16/18 02/29/20 allopurinoL [Zyloprim] 100 mg PO QAM 01/16/18 02/29/20 Albuterol Inhaler [Ventolin Hfa 2 puff INHALATION RT-Q6H PRN 11/30/19 02/29/20 Inhaler] Famotidine [Pepcid] 20 mg PO DAILY 11/30/19 02/29/20 busPIRone HCl [Buspar] 20 mg PO BID 11/30/19 02/29/20 Atorvastatin [Lipitor] 80 mg PO DIRECTED 02/22/20 02/29/20 Auryxia 210mg 210 mg PO TID 02/22/20 02/29/20 Cholecalciferol [Vitamin D3 (25 1,000 unit PO DAILY 02/22/20 02/29/20 Mcg = 1000 Iu)] Clopidogrel Bisulfate [Plavix] 75 mg PO DAILY 02/22/20 02/29/20 Cyclobenzaprine [Flexeril] 10 mg PO TID 02/22/20 02/29/20 Furosemide [Lasix] 80 mg PO BID PRN 02/22/20 02/29/20 Gabapentin [Neurontin] 100 mg PO TID PRN 02/22/20 02/29/20 Magnesium Oxide [Magox 400] 400 mg PO DAILY 02/22/20 02/29/20 Renocaps 1 cap PO HS 02/22/20 02/29/20 amLODIPine [Norvasc] 10 mg PO DAILY 02/22/20 02/29/20 Previous Rx's Medication Instructions Recorded carvediloL [Coreg*] 12.5 mg PO AC-BID #60 tab 01/30/18 Budesonide-Formot 160-4.5 Mcg 2 puff INHALATION RT-BID 30 Days 03/02/20 [Symbicort 160-4.5 Mcg Inhaler] #1 puff Darbepoetin Han [Aranesp] 60 mcg SQ Q7D syringe 03/02/20 Ferrous Sulfate [Feosol] 325 mg PO DAILY 30 Days #30 tab 03/02/20 Allergies Allergy/AdvReac Type Severity Reaction Status Date / Time Penicillins Allergy Unknown Verified 03/10/20 21:14 Childhood Review of Systems ROS Statement: Those systems with pertinent positive or pertinent negative responses have been documented in the HPI. ROS Other: All systems not noted in ROS Statement are negative. Past Medical History Past Medical History: Coronary Artery Disease (CAD), Heart Failure, COPD, GERD/Reflux, Hyperlipidemia, Hypertension, Renal Disease, Thyroid Disorder, Vascular Disorder Additional Past Medical History / Comment(s): Pt recently admitted to [facility] on 02/22/20 with need for hemodialysis/hypokalemia, fall with facial hematoma. Other hx: Pt states he had recent hospitalization at [facility] and tx for sepsis (blood infection) with picc line/antibiotic, chronic kidney failure with hemodialysis on Saturday, Saturday and Fridays, chronic anemia, mineral bone disease, cardiomyopathy, "blood clot in my heart years ago", recent back pain, recent aortic aneurysm repair/bilateral stenting at [facility], weakness/falls, hypothyroid, post op I&D L submax abscess -pt had respiratory failure and was vented. 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 Past Anesthesia/Blood Transfusion Reactions: No Reported Reaction Additional Past Anesthesia/Blood Transfusion Reaction / Comment(s): Pt has recei marco blood without reaction. Date of Last Stent Placement:: 2017 Past Psychological History: No Psychological Hx Reported Smoking Status: Current every day smoker Past Alcohol Use History: None Reported Past Drug Use History: None Reported - Past Family History Father Family Medical History: Diabetes Mellitus, Hypertension, Renal Disease Additional Family Medical History / Comment(s): Father was on hemodialysis Mother Family Medical History: Hypertension General Exam Limitations: no limitations General appearance: alert, in no apparent distress, other (This is a well- developed, well-nourished adult male patient in no acute distress. Vital signs upon presentation are temperature 98.6F, pulse 67, respirations 28, blood pressure 209/88, pulse ox 97% on room air.) Eye exam: Present: normal appearance, PERRL, EOMI. Absent: scleral icterus, conjunctival injection, periorbital swelling Respiratory exam: Present: normal lung sounds bilaterally. Absent: respiratory distress, wheezes, rales, rhonchi, stridor Cardiovascular Exam: Present: regular rate, normal rhythm, normal heart sounds. Absent: systolic murmur, diastolic murmur, rubs, gallop, clicks GI/Abdominal exam: Present: soft, normal bowel sounds. Absent: distended, tenderness, guarding, rebound, rigid Extremities exam: Present: full ROM, normal capillary refill, other (There is generalized swelling noted to the bilateral lower extremities, worse on the right. There is no erythema. Pedal and posttibial pulses are 2+.). Absent: normal inspection, tenderness, pedal edema, joint swelling, calf tenderness Neurological exam: Present: alert, oriented X3, CN II-XII intact Psychiatric exam: Present: normal affect, normal mood Skin exam: Present: warm, dry, intact, normal color. Absent: rash Course Vital Signs 03/10/20 03/10/20 03/10/20 21:08 21:21 21:24 Temperature 98.6 F Pulse Rate 67 82 Respiratory 28 H 25 H 26 H Rate Blood Pressure 209/88 184/96 O2 Sat by Pulse 97 98 Oximetry 03/10/20 23:35 Temperature Pulse Rate 89 Respiratory 18 Rate Blood Pressure 109/64 O2 Sat by Pulse 93 L Oximetry EKG Findings - EKG Comments: EKG Findings:: EKG obtained at 2132 shows normal sinus rhythm with a ventricular rate is 79, [place] interval 162, QRS duration 126, QT 436, QTc 499. No evidence of ST elevation or depression. Medical Decision Making - Medical Decision Making 59-year-old male patient presents to the emergency department today for evaluation of lower extremity pain and swelling as well as shortness of breath. Physical examination did reveal diffuse expiratory wheezing in the posterior lung wall. He did appear tachypneic upon exam. He did have generalized lower extremity edema worse on the right side. Labs reviewed and did reveal decreased hemoglobin 8.1 which is chronic for him. Troponin was mildly elevated consistent with his end-stage renal disease. Chest x-ray did reveal evidence for increased fluid and pleural effusion which is increased compared to last exam. Ultrasound of the right lower extremity was negative for DVT. Patient's blood pressure did decrease and oxygen saturation decreased while sleeping. We'll admit to the hospital for pain management, and a dialysis treatment to remove fluid. Patient is agreeable this plan. - Lab Data Result diagrams: 03/10/20 22:07 03/10/20 22:07 Lab Results 03/10/20 03/10/20 03/10/20 Range/Units 22:07 22:07 22:07 WBC 6.4 (3.8-10.6) k/uL RBC 2.78 L (4.30-5.90) m/uL Hgb 8.1 L (13.0-17.5) gm/dL Hct 26.5 L (39.0-53.0) % MCV 95.1 (80.0-100.0) fL MCH 29.0 (25.0-35.0) pg MCHC 30.4 L (31.0-37.0) g/dL RDW 16.0 H (11.5-15.5) % Plt Count 219 (150-450) k/uL Neutrophils % 60 % Lymphocytes % 18 % Monocytes % 7 % Eosinophils % 14 % Basophils % 1 % Neutrophils # 3.8 (1.3-7.7) k/uL Lymphocytes # 1.2 (1.0-4.8) k/uL Monocytes # 0.5 (0-1.0) k/uL Eosinophils # 0.9 H (0-0.7) k/uL Basophils # 0.1 (0-0.2) k/uL Hypochromasia Moderate PT 10.4 (9.0-12.0) sec INR 1.0 (<1.2) APTT 36.5 H (22.0-30.0) sec Sodium 138 (137-145) mmol/L Potassium 4.5 (3.5-5.1) mmol/L Chloride 100 (98-107) mmol/L Carbon Dioxide 29 (22-30) mmol/L Anion Gap 9 mmol/L BUN 33 H (9-20) mg/dL Creatinine 6.33 H (0.66-1.25) mg/dL Est GFR (CKD-EPI)AfAm 10 (>60 ml/min/1.73 sqM) Est GFR (CKD-EPI)NonAf 9 (>60 ml/min/1.73 sqM) Glucose 107 H (74-99) mg/dL Calcium 9.3 (8.4-10.2) mg/dL Magnesium 2.3 (1.6-2.3) mg/dL Total Bilirubin 0.5 (0.2-1.3) mg/dL AST 20 (17-59) U/L ALT 10 (4-49) U/L Alkaline Phosphatase 69 (38-126) U/L Troponin I (0.000-0.034) ng/mL Total Protein 5.4 L (6.3-8.2) g/dL Albumin 3.0 L (3.5-5.0) g/dL 03/10/20 Range/Units 22:07 WBC (3.8-10.6) k/uL RBC (4.30-5.90) m/uL Hgb (13.0-17.5) gm/dL Hct (39.0-53.0) % MCV (80.0-100.0) fL MCH (25.0-35.0) pg MCHC (31.0-37.0) g/dL RDW (11.5-15.5) % Plt Count (150-450) k/uL Neutrophils % % Lymphocytes % % Monocytes % % Eosinophils % % Basophils % % Neutrophils # (1.3-7.7) k/uL Lymphocytes # (1.0-4.8) k/uL Monocytes # (0-1.0) k/uL Eosinophils # (0-0.7) k/uL Basophils # (0-0.2) k/uL Hypochromasia PT (9.0-12.0) sec INR (<1.2) APTT (22.0-30.0) sec Sodium (137-145) mmol/L Potassium (3.5-5.1) mmol/L Chloride (98-107) mmol/L Carbon Dioxide (22-30) mmol/L Anion Gap mmol/L BUN (9-20) mg/dL Creatinine (0.66-1.25) mg/dL Est GFR (CKD-EPI)AfAm (>60 ml/min/1.73 sqM) Est GFR (CKD-EPI)NonAf (>60 ml/min/1.73 sqM) Glucose (74-99) mg/dL Calcium (8.4-10.2) mg/dL Magnesium (1.6-2.3) mg/dL Total Bilirubin (0.2-1.3) mg/dL AST (17-59) U/L ALT (4-49) U/L Alkaline Phosphatase (38-126) U/L Troponin I 0.098 H* (0.000-0.034) ng/mL Total Protein (6.3-8.2) g/dL Albumin (3.5-5.0) g/dL - Radiology Data Radiology results: report reviewed, image reviewed Two-view x-ray of the chest is obtained. Report is reviewed in its entirety. Impression by Dr. Ibanez shows small right pleural effusion mild infiltrate right lung base which is slightly worse than last exam. There is probably mild heart failure. Pulmonary vascularity unchanged. Stable cardiomegaly. Ultrasound of the right leg was obtained. Report was reviewed in its entirety. Impression by Dr. Ibanez shows no sign of deep vein thrombosis in the right leg. Disposition Clinical Impression: Fluid overload, Shortness of breath, Leg pain Disposition: ADMITTED IP TO THIS [facility] Condition: Serious Referrals: Srini Hastings MD [Primary Care Provider] - 1-2 days Decision to Admit Reason: Admit from EC Decision Date: 03/11/20 Decision Time: 00:30
[2020-03-11] MEDS ORDERED: ONDANSETRON 4 MG/2 ML VIAL IVP PRN (00:26)
[2020-03-11] MEDS ORDERED: NALOXONE 0.4 MG/ML 1 ML VIAL IV PRN (00:26)
[2020-03-11] MEDS ORDERED: IPRATROPIUM-ALBUTEROL 3 ML NEB INHALATION PRN (00:29)
[2020-03-11] MEDS: HYDROmorphone 1 MG/ML 1 ML SYRINGE IVP PRN ×4 (04:35→22:42)
[2020-03-11] MEDS: IPRATROPIUM-ALBUTEROL 3 ML NEB INHALATION SCH ×4 (08:50→19:21)
[2020-03-11] MEDS ORDERED: DARBEPOETIN ALFA 40 MCG/0.4 ML SYRINGE SQ SCH (12:00)
--- NOTE | 2020-03-11 12:02 | P.NPCON ---
History of Present Illness - Reason for Consult end stage renal disease - History of Present Illness Reason for consultation: End-stage renal disease History of present illness: Patient is a 59-year-old male seen today in consultation for end-stage renal disease. He is maintained on hemodialysis on Saturday schedule. Patient states Saturday he was quite anxious and cut his treatment short to 2 hours. He progressively became more and more short of breath and came to the hospital. He is currently undergoing hemodialysis and is tolerating the procedure well. Trying 44 L ultrafiltration. No fever or chills. No vomiting or diarrhea. No chest pain. He's currently on IV daptomycin for which she goes to the infusion center on dialysis days for mycortic aneurysm. Appetite is samantha r. No vomiting or diarrhea. No dizziness or syncopal episodes. Blood pressure stable. Vital signs are stable. General: The patient appeared well nourished and normally developed. HEENT: Head exam is unremarkable. Neck is without jugular venous distension. LUNGS: Breath sounds decreased. HEART: Rate and Rhythm are regular. ABDOMEN: Soft, nontender. EXTREMITITES: 1+ edema. Past Medical History Past Medical History: Coronary Artery Disease (CAD), Heart Failure, COPD, Dialysis, GERD/Reflux, Hyperlipidemia, Hypertension, Renal Disease, Thyroid Disorder, Vascular Disorder Additional Past Medical History / Comment(s): Pt recently admitted to [facility] on 02/22/20 with need for hemodialysis/hypokalemia, fall with facial hematoma. Other hx: Pt states he had recent hospitalization at [facility] and tx for sepsis (blood infection) with picc line/antibiotic, chronic kidney failure with hemodialysis on Saturday, Saturday and Fridays, chronic anemia, mineral bone disease, cardiomyopathy, "blood clot in my heart years ago", recent back pain, recent aortic aneurysm repair/bilateral stenting at [facility], weakness/falls, hypothyroid, post op I&D L submax abscess -pt had respiratory failure and was vented. 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 Past Anesthesia/Blood Transfusion Reactions: No Reported Reaction Additional Past Anesthesia/Blood Transfusion Reaction / Comment(s): Pt has received blood without reaction. Date of Last Stent Placement:: 2017 Past Psychological History: No Psychological Hx Reported Additional Psychological History / Comment(s): Pt resides with his brother. He is disabled. He uses no assistive devices. He drives. He has a nebulizer. Pt states he is to have home care starting soon. He has a walker Smoking Status: Current every day smoker Past Alcohol Use History: None Reported Additional Past Alcohol Use History / Comment(s): Pt started smoking in 1980 and states he is still smoking Past Drug Use History: None Reported - Past Family History Father Family Medical History: Diabetes Mellitus, Hypertension, Renal Disease Additional Family Medical History / Comment(s): Father was on hemodialysis Mother Family Medical History: Hypertension Medications and Allergies Home Medications Medication Instructions Recorded Confirmed Type Aspirin EC [Ecotrin Low Dose] 81 mg PO DAILY 01/16/18 03/11/20 History Citalopram Hydrobromide [CeleXA] 20 mg PO QAM 01/16/18 03/11/20 History Levothyroxine Sodium [Synthroid] 75 mcg PO DAILY 01/16/18 03/11/20 History Magnesium Oxide [Mag-Ox] 400 mg PO DAILY 01/16/18 03/11/20 History allopurinoL [Zyloprim] 100 mg PO QAM 01/16/18 03/11/20 History carvediloL [Coreg*] 12.5 mg PO AC-BID #60 tab 01/30/18 03/11/20 Rx Albuterol Inhaler [Ventolin Hfa 2 puff INHALATION RT-Q6H PRN 11/30/19 03/11/20 History Inhaler] Famotidine [Pepcid] 20 mg PO DAILY 11/30/19 03/11/20 History busPIRone HCl [Buspar] 10 mg PO BID 11/30/19 03/11/20 History Atorvastatin [Lipitor] 80 mg PO DIRECTED 02/22/20 03/11/20 History Auryxia 210mg 210 mg PO TID 02/22/20 03/11/20 History Cholecalciferol [Vitamin D3 (25 1,000 unit PO DAILY 02/22/20 03/11/20 History Mcg = 1000 Iu)] Clopidogrel Bisulfate [Plavix] 75 mg PO DAILY 02/22/20 03/11/20 History Cyclobenzaprine [Flexeril] 10 mg PO TID 02/22/20 03/11/20 History Gabapentin [Neurontin] 100 mg PO TID PRN 02/22/20 03/11/20 History Renocaps 1 cap PO HS 02/22/20 03/11/20 History amLODIPine [Norvasc] 10 mg PO DAILY 02/22/20 03/11/20 History Budesonide-Formot 160-4.5 Mcg 2 puff INHALATION RT-BID 30 Days 03/02/20 03/11/20 Rx [Symbicort 160-4.5 Mcg Inhaler] #1 puff Allergies Allergy/AdvReac Type Severity Reaction Status Date / Time Penicillins Allergy Unknown Verified 03/10/20 21:14 Childhood Physical Exam Vitals: Vital Signs Temp Pulse Pulse Resp BP BP Pulse Ox 03/11/20 09:03 80 03/11/20 08:50 76 03/11/20 08:00 97.7 F 65 22 126/44 93 L 03/11/20 04:00 97.9 F 61 20 119/60 100 03/11/20 01:59 98.7 F 86 18 146/63 92 L 03/11/20 01:17 98.7 F 86 18 146/63 92 L 03/10/20 23:35 89 18 109/64 93 L 03/10/20 21:24 26 H 03/10/20 21:21 82 25 H 184/96 98 03/10/20 21:08 98.6 F 67 28 H 209/88 97 Intake and Output 03/10/20 03/11/20 03/11/20 22:59 06:59 14:59 Output Total 150 Balance -150 Output: Urine 150 Other: Weight 77.111 kg 77.111 kg Results - Lab Results Most recent lab results Calcium 9.3 mg/dL (8.4-10.2) 03/10/20 22:07 Magnesium 2.3 mg/dL (1.6-2.3) 03/10/20 22:07 03/10/20 22:07 03/10/20 22:07 Assessment and Plan Plan: Assessment: 1. End-stage renal disease maintained on hemodialysis on Saturday schedule. 2. Volume overload. 3. 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 4. Acute on chronic diastolic CHF. 5. Chronic hyperkalemia secondary to chronic kidney disease. 6. Anemia of chronic kidney disease. 7. Anxiety. Maintained on BuSpar and Celexa. Plan: Currently seen while undergoing hemodialysis. Another treatment tomorrow mostly for ultrafiltration. Maintain IV daptomycin post hemodialysis. Add Manoj. Thank you for the consultation. I will continue to follow the patient with you during his hospital stay.
[2020-03-11] MEDS ORDERED: ALBUTEROL HFA INHALER INHALATION PRN (12:10)
[2020-03-11] MEDS ORDERED: GABAPENTIN 100 MG CAP PO PRN (12:10)
[2020-03-11] MEDS: FAMOTIDINE 20 MG TAB PO SCH (15:02)
[2020-03-11] MEDS: ASPIRIN 81 MG PO SCH (15:03)
[2020-03-11] MEDS: CYCLOBENZAPRINE 10 MG TAB PO SCH ×2 (15:03→20:57)
[2020-03-11] MEDS: LEVOTHYROXINE 75 MCG TAB PO SCH (15:04)
[2020-03-11] MEDS: busPIRone HCl 10 MG TAB PO SCH ×2 (15:04→21:02)
[2020-03-11] MEDS: carvediloL 12.5 MG TAB PO SCH ×2 (15:04→15:14)
[2020-03-11] MEDS: amLODIPine 10 MG TAB PO SCH (15:04)
[2020-03-11] MEDS: CLOPIDOGREL 75 MG TAB PO SCH (15:04)
[2020-03-11] MEDS: allopurinoL 100 MG TAB PO SCH (15:05)
[2020-03-11] MEDS: FERROUS SULFATE 325 MG TAB PO SCH ×2 (15:05→20:57)
[2020-03-11] MEDS ORDERED: NICOTINE POLACRILEX 2 MG GUM BUCCAL PRN (15:09)
[2020-03-11] MEDS: SYMBICORT 160-4.5 MCG INHALER INHALATION SCH ×2 (15:37→19:21)
[2020-03-11] MEDS: NICOTINE 21MG/24HR PATCH TRANSDERM SCH (15:57)
--- NOTE | 2020-03-11 20:40 | P.HPIM ---
History of Present Illness H&P Date: 03/11/20 Chief Complaint: Increasing edema shortness of breath History of presenting complaint: This is a 59-year-old patient of Dr. Srini Hastings. Chronic stable medical conditions include end-stage kidney disease on hemodialysis Saturday and Saturday with the right arm fistula, anxiety, COPD, minimal bone disease, congestive heart failure EF 50%, coronary artery disease and left below elbow amputation. Patient for last few sessions of hemodialysis has been getting hemo dialyzed for less than duration. Now presents with increasing shortness of breath edema. No fever no chills. Patient has continued to smoke. Patient was hemodialyzed today. Mostly ultrafiltration. Some cough. No sputum production. Appetite okay. 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 Smoking a pack a day for close to 37 years. No alcohol. Physical examination: VITAL SIGNS: 98.6, 67, 28, 184/96, 98% on room air GENERAL: BMI 23.7, laying in bed, slightly restless EYES: Pupils equal. Conjunctiva normal. HEENT: External appearance of nose and ears normal, oral cavity grossly normal. NECK: JVD not raised; masses not palpable. HEART: First and second heart sounds are normal; no edema. LUNGS: Respiratory rate increased, decreased breath sounds some wheezing. ABDOMEN: Soft, nontender, liver spleen not palpable, no masses palpable. PSYCH: Alert and oriented x3; mood and affect anxious EXTREMITY: Left arm below elbow amputation NEUROLOGICAL: Cranial nerves grossly intact; no facial asymmetry, power and sensation grossly intact. LYMPHATICS: No lymph nodes palpable in the axilla and neck INVESTIGATIONS, reviewed in the clinical context: White count 6.4 hemoglobin 8.1 platelets 2 in 19 potassium 4.5 bun 33 creatinine 6.33 troponin I 0.098 EKG tracing personally reviewed by me-nonspecific T-wave changes Chest x-ray film personally reviewed by me-cardiomegaly with venous prominence 2-D echo from November 2019 shows EF 50-55%, concentric LVH Assessment: -Acute on chronic congestive heart failure exacerbation from gastric dysfunction EF 50-55% -Acute fluid overload from incomplete hemodialysis -Acute COPD exacerbation in a current smoker -Chronic nicotine dependence patient cigarette smoker -Lower lumbar spine and the adjoining area of pain appears to be sciatica with pain down the right leg. Orthopedics consulted -Coronary artery disease -Congestive heart failure EF not known -GERD -Hyperlipidemia -Essential hypertension -End-stage kidney disease on hemodialysis Saturday and Saturday, with right upper extremity fistula -Hypothyroid -Anxiety not otherwise specified -Acute hypoxic respiratory failure requiring high flow oxygen Plan: Patient was hemodialyzed/had ultrafiltration today. Repeat session tomorrow. Home medications resumed. Initially on nonrebreather changed over to high flow nasal cannula. Nephrology was consulted. Care was discussed with the patient question also. Also put on bronchodilators. Smoke cessation counseling: This was done with the patient. Nicotine patch is being given. More than 3 minutes was spent for this Past Medical History Past Medical History: Coronary Artery Disease (CAD), Heart Failure, COPD, Dialysis, GERD/Reflux, Hyperlipidemia, Hypertension, Renal Disease, Thyroid Disorder, Vascular Disorder Additional Past Medical History / Comment(s): Pt recently admitted to [facility] on 02/22/20 with need for hemodialysis/hypokalemia, fall with facial hematoma. Other hx: Pt states he had recent hospitalization at [facility] and tx for sepsis (blood infection) with picc line/antibiotic, chronic kidney failure with hemodialysis on Saturday, Saturday and Fridays, chronic anemia, mineral bone disease, cardiomyopathy, "blood clot in my heart years ago", recent back pain, recent aortic aneurysm repair/bilateral stenting at [facility], weakness/falls, hypothyroid, post op I&D L submax abscess -pt had respiratory failure and was vented. 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 Past Anesthesia/Blood Transfusion Reactions: No Reported Reaction Additional Past Anesthesia/Blood Transfusion Reaction / Comment(s): Pt has received blood without reaction. Date of Last Stent Placement:: 2017 Past Psychological History: No Psychological Hx Reported Additional Psychological History / Comment(s): Pt resides with his brother. He is disabled. He uses no assistive devices. He drives. He has a nebulizer. Pt states he is to have home care starting soon. He has a walker Smoking Status: Current every day smoker Past Alcohol Use History: None Reported Additional Past Alcohol Use History / Comment(s): Pt started smoking in 1980 and states he is still smoking Past Drug Use History: None Reported - Past Family History Father Family Medical History: Diabetes Mellitus, Hypertension, Renal Disease Additional Family Medical History / Comment(s): Father was on hemodialysis Mother Family Medical History: Hypertension Medications and Allergies Home Medications Medication Instructions Recorded Confirmed Type Aspirin EC [Ecotrin Low Dose] 81 mg PO DAILY 01/16/18 03/11/20 History Citalopram Hydrobromide [CeleXA] 20 mg PO QAM 01/16/18 03/11/20 History Levothyroxine Sodium [Synthroid] 75 mcg PO DAILY 01/16/18 03/11/20 History Magnesium Oxide [Mag-Ox] 400 mg PO DAILY 01/16/18 03/11/20 History allopurinoL [Zyloprim] 100 mg PO QAM 01/16/18 03/11/20 History carvediloL [Coreg*] 12.5 mg PO AC-BID #60 tab 01/30/18 03/11/20 Rx Albuterol Inhaler [Ventolin Hfa 2 puff INHALATION RT-Q6H PRN 11/30/19 03/11/20 History Inhaler] Famotidine [Pepcid] 20 mg PO DAILY 11/30/19 03/11/20 History busPIRone HCl [Buspar] 10 mg PO BID 11/30/19 03/11/20 History Atorvastatin [Lipitor] 80 mg PO DIRECTED 02/22/20 03/11/20 History Auryxia 210mg 210 mg PO TID 02/22/20 03/11/20 History Cholecalciferol [Vitamin D3 (25 1,000 unit PO DAILY 02/22/20 03/11/20 History Mcg = 1000 Iu)] Clopidogrel Bisulfate [Plavix] 75 mg PO DAILY 02/22/20 03/11/20 History Cyclobenzaprine [Flexeril] 10 mg PO TID 02/22/20 03/11/20 History Gabapentin [Neurontin] 100 mg PO TID PRN 02/22/20 03/11/20 History Renocaps 1 cap PO HS 02/22/20 03/11/20 History amLODIPine [Norvasc] 10 mg PO DAILY 02/22/20 03/11/20 History Budesonide-Formot 160-4.5 Mcg 2 puff INHALATION RT-BID 30 Days 03/02/20 03/11/20 Rx [Symbicort 160-4.5 Mcg Inhaler] #1 puff Allergies Allergy/AdvReac Type Severity Reaction Status Date / Time Penicillins Allergy Unknown Verified 03/10/20 21:14 Childhood Physical Exam Vitals: Vital Signs Temp Pulse Pulse Resp BP BP Pulse Ox 03/11/20 09:03 80 03/11/20 08:50 76 03/11/20 08:00 97.7 F 65 22 126/44 93 L 03/11/20 04:00 97.9 F 61 20 119/60 100 03/11/20 01:59 98.7 F 86 18 146/63 92 L 03/11/20 01:17 98.7 F 86 18 146/63 92 L 03/10/20 23:35 89 18 109/64 93 L 03/10/20 21:24 26 H 03/10/20 21:21 82 25 H 184/96 98 03/10/20 21:08 98.6 F 67 28 H 209/88 97 Intake and Output 03/10/20 03/11/20 03/11/20 22:59 06:59 14:59 Output Total 150 Balance -150 Output: Urine 150 Other: Weight 77.111 kg 77.111 kg Results CBC & Chem 7: 03/10/20 22:07 03/10/20 22:07 Labs: Abnormal Lab Results - Last 24 Hours (Table) 03/10/20 03/10/2003/10/20 Range/Units 22:07 22:07 22:07 RBC 2.78 L (4.30-5.90) m/uL Hgb 8.1 L (13.0-17.5) gm/dL Hct 26.5 L (39.0-53.0) % MCHC 30.4 L (31.0-37.0) g/dL RDW 16.0 H (11.5-15.5) % Eosinophils # 0.9 H (0-0.7) k/uL APTT 36.5 H (22.0-30.0) sec BUN 33 H (9-20) mg/dL Creatinine 6.33 H (0.66-1.25) mg/dL Glucose 107 H (74-99) mg/dL Troponin I (0.000-0.034) ng/mL Total Protein 5.4 L (6.3-8.2) g/dL Albumin 3.0 L (3.5-5.0) g/dL 03/10/20 Range/Units 22:07 RBC (4.30-5.90) m/uL Hgb (13.0-17.5) gm/dL Hct (39.0-53.0) % MCHC (31.0-37.0) g/dL RDW (11.5-15.5) % Eosinophils # (0-0.7) k/uL APTT (22.0-30.0) sec BUN (9-20) mg/dL Creatinine (0.66-1.25) mg/dL Glucose (74-99) mg/dL Troponin I 0.098 H* (0.000-0.034) ng/mL Total Protein (6.3-8.2) g/dL Albumin (3.5-5.0) g/dL Thrombosis Risk Factor Assmnt - Choose All That Apply Each Factor Represents 1 point: Age 41-60 years, History of prior major surgery (<1month), Sepsis (< 1month) Thrombosis Risk Factor Assessment Total Risk Factor Score: 3 Thrombosis Risk Factor Assessment Level: Moderate Risk
[2020-03-11] MEDS ORDERED: ATORVASTATIN 80 MG TAB PO SCH (21:00)
[2020-03-11] MEDS ORDERED: FOLIC ACID-VIT B COMPLEX-VIT C 1 CAP PO SCH (21:00)
[2020-03-12] MEDS: carvediloL 12.5 MG TAB PO SCH (06:23)
[2020-03-12] MEDS: LEVOTHYROXINE 75 MCG TAB PO SCH (06:23)
[2020-03-12 08:54] VITALS: RESP 16
[2020-03-12] MEDS ORDERED: CHOLECALCIFEROL 1,000 UNIT TAB PO SCH (09:00)
[2020-03-12] MEDS ORDERED: CITALOPRAM HYDROBROMIDE 20 MG TAB PO SCH (09:00)
[2020-03-12] MEDS: IPRATROPIUM-ALBUTEROL 3 ML NEB INHALATION SCH ×2 (09:08→11:38)
[2020-03-12] MEDS: SYMBICORT 160-4.5 MCG INHALER INHALATION SCH (09:10)
[2020-03-12] MEDS: HYDROmorphone 1 MG/ML 1 ML SYRINGE IVP PRN (10:25)
[2020-03-12] MEDS: allopurinoL 100 MG TAB PO SCH (10:27)
[2020-03-12] MEDS: busPIRone HCl 10 MG TAB PO SCH (10:27)
[2020-03-12] MEDS: ASPIRIN 81 MG PO SCH (10:27)
[2020-03-12] MEDS: NICOTINE 21MG/24HR PATCH TRANSDERM SCH (10:27)
[2020-03-12] MEDS: FAMOTIDINE 20 MG TAB PO SCH (10:28)
[2020-03-12] MEDS: CLOPIDOGREL 75 MG TAB PO SCH (10:28)
[2020-03-12] MEDS: CYCLOBENZAPRINE 10 MG TAB PO SCH ×2 (10:28→15:20)
[2020-03-12] MEDS: FERROUS SULFATE 325 MG TAB PO SCH ×2 (10:28→15:20)
[2020-03-12 11:35] VITALS: TEMP 98.4
--- NOTE | 2020-03-12 12:35 | PN ---
PROGRESS NOTE Patient is seen for followup for end-stage renal disease. He is currently seen on hemodialysis. He is tolerating his treatment well. He was admitted with volume overload as he had cut his treatments short as outpatient. PHYSICAL EXAMINATION: Blood pressure is 127/67, heart rate 70 per minute, he is afebrile. Examination of the heart S1, S2. Examination of the lungs, bilateral breath sounds are heard. Abdomen is soft, nontender. Examination of lower extremities shows no evidence of edema. [employer]ER exam grossly intact. LAB: Show sodium 138, potassium 4.5, creatinine 6.3, hemoglobin 8.1 g/dL. ASSESSMENT: 1. End-stage renal disease, on hemodialysis on a Saturday, Saturday, Saturday schedule. Receiving extra treatment today. 2. Volume overload currently improved. 3. Anxiety. Patient was started on Xanax as outpatient however he believes it is not helping. He is maintained on BuSpar and Celexa as well. 4. Recent bacteremia with mycotic aneurysm, maintained on daptomycin post hemodialysis. PLAN: Continue with the antibiotics. Continue with BuSpar and Celexa. MMODL / IJN: [id number] /
--- NOTE | 2020-03-12 12:50 | CONS ---
CONSULTATION NO DICTATION MMODL / IJN: [id number] /
[2020-03-12] MEDS: amLODIPine 10 MG TAB PO SCH (15:19)
[2020-03-12 15:23] VITALS: BP 174/110; PULSE 87
--- NOTE | 2020-03-12 19:44 | P.DS ---
Providers Date of admission: 03/11/20 00:03 Expected date of discharge: 03/12/20 Attending physician: Leroy Vogt Consults: 03/11/20 00:27 Consult Physician Routine Consulting Provider: Jd Awad Consult Reason/Comments: Dialysis Do you want consulting provider notified?: Yes [facility] Course: Chief Complaint: Increasing edema shortness of breath History of presenting complaint: This is a 59-year-old patient of Dr. Srini Hastings. Chronic stable medical conditions include end-stage kidney disease on hemodialysis Saturday and Saturday with the right arm fistula, anxiety, COPD, minimal bone disease, congestive heart failure EF 50%, coronary artery disease and left below elbow amputation. Patient for last few sessions of hemodialysis has been getting hemodialyzed for less than duration. Now presents with increasing shortness of breath edema. No fever no chills. Patient has continued to smoke. Patient was hemodialyzed today. Mostly ultrafiltration. Some cough. No sputum production. Appetite okay. Today-patient again went ultrafiltration today. Fluid was removed. Breathing much improved. Discussed with the patient. Also discussed Dr. Vázquez. [place] to [place]. Consultation: Dr. Vázquez/Dr. Awad from nephrology Physical examination: VITAL SIGNS: 98.4, 70, 16, 127 basically 7, 96% room air GENERAL: Laying in bed, comfortable EYES: Pupils equal. Conjunctiva normal. HEENT: External appearance of nose and ears normal, oral cavity grossly normal. NECK: JVD not raised; masses not palpable. HEART: First and second heart sounds are normal; no edema. LUNGS: Respiratory rate normal decreased breath sounds ABDOMEN: Soft, nontender, liver spleen not palpable, no masses palpable. PSYCH: Alert and oriented x3; mood and affect anxious EXTREMITY: Left arm below elbow amputation INVESTIGATIONS, reviewed in the clinical context: White count 6.4 hemoglobin 8.1 platelets 2 in 19 potassium 4.5 bun 33 creatinine 6.33 troponin I 0.098 EKG tracing personally reviewed by me-nonspecific T-wave changes Chest x-ray film personally reviewed by me-cardiomegaly with venous prominence 2-D echo from November 2019 shows EF 50-55%, concentric LVH Assessment: -Acute on chronic congestive heart failure exacerbation from diastolic dysfunction EF 50-55%, POA -Acute fluid overload from incomplete hemodialysis, POA -Acute COPD exacerbation in a current smoker -Chronic nicotine dependence patient cigarette smoker -Coronary artery disease -GERD -Hyperlipidemia -Essential hypertension -End-stage kidney disease on hemodialysis Saturday and Saturday, with right upper extremity fistula -Hypothyroid -Anxiety not otherwise specified -Acute hypoxic respiratory failure requiring high flow oxygen from pulmonary edema, POA -Troponin leak from end-stage kidney disease and CHF. No acute coronary syndrome Disposition: Home Patient Condition at Discharge: Stable Plan - Discharge Summary Discharge Rx Participant: No New Discharge Prescriptions: New Nicotine 21Mg/24Hr Patch [Habitrol] 1 patch TRANSDERM DAILY #14 patch Continue Citalopram Hydrobromide [CeleXA] 20 mg PO QAM Aspirin EC [Ecotrin Low Dose] 81 mg PO DAILY Levothyroxine Sodium [Synthroid] 75 mcg PO DAILY Magnesium Oxide [Mag-Ox] 400 mg PO DAILY allopurinoL [Zyloprim] 100 mg PO QAM carvediloL [Coreg*] 12.5 mg PO AC-BID #60 tab Famotidine [Pepcid] 20 mg PO DAILY busPIRone HCl [Buspar] 10 mg PO BID Albuterol Inhaler [Ventolin Hfa Inhaler] 2 puff INHALATION RT-Q6H PRN PRN Reason: Shortness Of Breath Cholecalciferol [Vitamin D3 (25 Mcg = 1000 Iu)] 1,000 unit PO DAILY Atorvastatin [Lipitor] 80 mg PO DIRECTED Auryxia 210mg 210 mg PO TID Renocaps 1 cap PO HS amLODIPine [Norvasc] 10 mg PO DAILY Clopidogrel Bisulfate [Plavix] 75 mg PO DAILY Cyclobenzaprine [Flexeril] 10 mg PO TID Gabapentin [Neurontin] 100 mg PO TID PRN PRN Reason: Pain Budesonide-Formot 160-4.5 Mcg [Symbicort 160-4.5 Mcg Inhaler] 2 puff INHALATION RT-BID 30 Days #1 puff Discharge Medication List Aspirin EC [Ecotrin Low Dose] 81 mg PO DAILY 01/16/18 [History] Citalopram Hydrobromide [CeleXA] 20 mg PO QAM 01/16/18 [History] Levothyroxine Sodium [Synthroid] 75 mcg PO DAILY 01/16/18 [History] Magnesium Oxide [Mag-Ox] 400 mg PO DAILY 01/16/18 [History] allopurinoL [Zyloprim] 100 mg PO QAM 01/16/18 [History] carvediloL [Coreg*] 12.5 mg PO AC-BID #60 tab 01/30/18 [Rx] Albuterol Inhaler [Ventolin Hfa Inhaler] 2 puff INHALATION RT-Q6H PRN 11/30/19 [History] Famotidine [Pepcid] 20 mg PO DAILY 11/30/19 [History] busPIRone HCl [Buspar] 10 mg PO BID 11/30/19 [History] Atorvastatin [Lipitor] 80 mg PO DIRECTED 02/22/20 [History] Auryxia 210mg 210 mg PO TID 02/22/20 [History] Cholecalciferol [Vitamin D3 (25 Mcg = 1000 Iu)] 1,000 unit PO DAILY 02/22/20 [History] Clopidogrel Bisulfate [Plavix] 75 mg PO DAILY 02/22/20 [History] Cyclobenzaprine [Flexeril] 10 mg PO TID 02/22/20 [History] Gabapentin [Neurontin] 100 mg PO TID PRN 02/22/20 [History] Renocaps 1 cap PO HS 02/22/20 [History] amLODIPine [Norvasc] 10 mg PO DAILY 02/22/20 [History] Budesonide-Formot 160-4.5 Mcg [Symbicort 160-4.5 Mcg Inhaler] 2 puff INHALATION RT-BID 30 Days #1 puff 03/02/20 [Rx] Nicotine 21Mg/24Hr Patch [Habitrol] 1 patch TRANSDERM DAILY #14 patch 03/12/20 [Rx] Follow up Appointment(s)/Referral(s): Srini Hastings MD [Primary Care Provider] - 1-2 days (Please call office to make follow up appointment during normal business hours. ) Patient Instructions/Handouts: How to Stop Smoking (DC), Chronic Kidney Disease (DC), Dialysis Diet (DC) Discharge Disposition: HOME SELF-CARE
== END 2020-03-12 15:26 | disposition home or self-care (01) ==
LOC: EC 21:07 → 3SCARD 03-11 00:03
PROVIDERS: ADMIT Hospitalist; ATTEND Hospitalist
DX: I13.2 Hypertensive heart and chronic kidney disease with heart failure and with stage 5 chronic kidney disease, or end stage renal disease (principal); I50.33 Acute on chronic diastolic (congestive) heart failure; E87.70 Fluid overload, unspecified; J44.1 Chronic obstructive pulmonary disease with (acute) exacerbation; F17.210 Nicotine dependence, cigarettes, uncomplicated; I25.10 Atherosclerotic heart disease of native coronary artery without angina pectoris; K21.9 Gastro-esophageal reflux disease without esophagitis; E78.5 Hyperlipidemia, unspecified; N18.6 End stage renal disease; E03.9 Hypothyroidism, unspecified; F41.9 Anxiety disorder, unspecified; J96.01 Acute respiratory failure with hypoxia; R79.89 Other specified abnormal findings of blood chemistry; M79.661 Pain in right lower leg; M79.89 Other specified soft tissue disorders; E87.6 Hypokalemia; D63.1 Anemia in chronic kidney disease; M89.9 Disorder of bone, unspecified; E83.9 Disorder of mineral metabolism, unspecified; I42.9 Cardiomyopathy, unspecified; M54.5 Low back pain; M79.604 Pain in right leg; I72.9 Aneurysm of unspecified site; E87.5 Hyperkalemia; G62.9 Polyneuropathy, unspecified; Z98.890 Other specified postprocedural states; Z99.2 Dependence on renal dialysis; Z79.82 Long term (current) use of aspirin; Z79.899 Other long term (current) drug therapy; Z79.890 Hormone replacement therapy; Z79.02 Long term (current) use of antithrombotics/antiplatelets; Z79.51 Long term (current) use of inhaled steroids; Z88.0 Allergy status to penicillin; Z86.79 Personal history of other diseases of the circulatory system; Z87.828 Personal history of other (healed) physical injury and trauma; Z86.19 Personal history of other infectious and parasitic diseases; Z86.718 Personal history of other venous thrombosis and embolism; Z95.828 Presence of other vascular implants and grafts; Z91.81 History of falling; Z87.09 Personal history of other diseases of the respiratory system; Z86.14 Personal history of Methicillin resistant Staphylococcus aureus infection; Z95.5 Presence of coronary angioplasty implant and graft; Z95.820 Peripheral vascular angioplasty status with implants and grafts; Z87.19 Personal history of other diseases of the digestive system; Z89.212 Acquired absence of left upper limb below elbow; Z82.49 Family history of ischemic heart disease and other diseases of the circulatory system; Z83.3 Family history of diabetes mellitus; Z84.1 Family history of disorders of kidney and ureter
CPT/HCPCS: 96376 ×2; 96365; 96372; 96375; 99285; 36415; 94640 ×4; 94760; 93005; 80053; 83735; 84484; 85025; 85610; 85730; 71046; 93971; G0257 ×2; G0378 ×2; S4990 ×2; J2405; J0878; J1170 ×3; J0881; 90935

== ENCOUNTER → 2020-03-17 | Outpatient (CLI) | payer MEDICARE, BC ==
--- NOTE | 2020-03-17 15:09 | CT ---
EXAMINATION TYPE: CT angio chest DATE OF EXAM: 03/17/2020 COMPARISON: 02/02/2020 HISTORY: arteritis post stent placement CT DLP: 868 mGycm CONTRAST: CTA thoracic aorta with 3-D reconstruction is performed and without and with IV Contrast, patient inj ected with 100 mL of Isovue 370. Contrast CTA of the thoracic aorta was performed from the lung apex through the upper abdomen. 3D re construction imaging obtained at a separate workstation. CT Chest: THORACIC AORTA: There is evidence of interval stent graft placement at the site of distal thoracic a ortic aneurysm. Currently there is no evidence for leak. [place] aneurysm measures 7.3 cm. Remaining t horacic aorta is stable. Additional aneurysms seen. LUNGS: The lungs are clear and free of infiltrate or atelectasis. No pulmonary nodule or mass is det ected. Right-sided pleural effusion. Resolution of small left-sided pleural effusion seen previously. MEDIASTINUM: No evidence for mediastinal hematoma. The heart is nlarged. No evidence for mediasti nal mass or adenopathy. HILAR STRUCTURES: No evidence for mass. No hilar adenopathy is appreciated. OTHER: Gallstones noted. Multiple renal cysts identified. Kidneys are slightly size. IMPRESSION- There is evidence of interval stent graft placement at the site of distal thoracic aortic aneurysm. Currently there is no evidence for leak. [place] aneurysm measures 7.3 cm.
== END | disposition home or self-care (01) ==
LOC: RADCTMAIN 13:51
PROVIDERS: ATTEND Internal Medicine Infectious Disease
DX: I71.2 Thoracic aortic aneurysm, without rupture (principal); I77.6 Arteritis, unspecified; Z95.828 Presence of other vascular implants and grafts
CPT/HCPCS: 71275; Q9967

== ENCOUNTER → 2020-03-23 | Day surgery (SDC) | payer MEDICARE, BC ==
[2020-03-22 10:54] VITALS: BMI 23.7
[~2020-03-23] MED LIST: LIDOCAINE 1% INJ 10MG/ML (20 ML MDV) ONE
== END ==
LOC: CATHCVL 09:08
PROVIDERS: ATTEND Internal Medicine Infectious Disease
DX: I72.9 Aneurysm of unspecified site (principal); N18.6 End stage renal disease; Z99.2 Dependence on renal dialysis; F41.9 Anxiety disorder, unspecified; M89.9 Disorder of bone, unspecified; I50.9 Heart failure, unspecified; I25.10 Atherosclerotic heart disease of native coronary artery without angina pectoris; Z89.212 Acquired absence of left upper limb below elbow; K21.9 Gastro-esophageal reflux disease without esophagitis; E78.5 Hyperlipidemia, unspecified; I13.2 Hypertensive heart and chronic kidney disease with heart failure and with stage 5 chronic kidney disease, or end stage renal disease; D63.1 Anemia in chronic kidney disease; G62.9 Polyneuropathy, unspecified; Z86.718 Personal history of other venous thrombosis and embolism; E03.9 Hypothyroidism, unspecified; Z86.19 Personal history of other infectious and parasitic diseases; Z87.828 Personal history of other (healed) physical injury and trauma; F17.210 Nicotine dependence, cigarettes, uncomplicated; E87.70 Fluid overload, unspecified; J44.1 Chronic obstructive pulmonary disease with (acute) exacerbation; M54.5 Low back pain; M79.604 Pain in right leg; J96.01 Acute respiratory failure with hypoxia; I42.9 Cardiomyopathy, unspecified; Z98.890 Other specified postprocedural states; Z86.14 Personal history of Methicillin resistant Staphylococcus aureus infection; Z95.5 Presence of coronary angioplasty implant and graft; Z95.820 Peripheral vascular angioplasty status with implants and grafts; Z79.82 Long term (current) use of aspirin; Z79.899 Other long term (current) drug therapy; Z79.890 Hormone replacement therapy; Z79.02 Long term (current) use of antithrombotics/antiplatelets; Z79.51 Long term (current) use of inhaled steroids; Z88.0 Allergy status to penicillin; Z83.3 Family history of diabetes mellitus; Z82.49 Family history of ischemic heart disease and other diseases of the circulatory system; Z84.1 Family history of disorders of kidney and ureter
CPT/HCPCS: 36410; 76937; C1751

== ENCOUNTER 2021-07-25 14:27 | Inpatient (IN) | payer MEDICARE, BC ==
--- NOTE | 2021-07-25 16:11 | XR ---
EXAMINATION TYPE: XR foot complete LT DATE OF EXAM: 07/25/2021 CLINICAL HISTORY: Pain and swelling worse over first through third toes TECHNIQUE: Frontal, lateral, and oblique images of the left foot are obtained. COMPARISON: None FINDINGS: Osseous structures are demineralized which is noted to lower radiographic sensitivity. Poor definition with suspected bony destruction of the first distal phalanx. Old healed fracture or defor mity distal diaphysis fifth proximal phalanx. Calcification from superior posterior calcaneus at the distal Achilles tendon insertion. Mild to moderate diffuse subcutaneous edema with additional calcifi cations hindfoot and midfoot level along the dorsal surface near navicular bone on lateral view proba ble vascular calcifications. IMPRESSION: There is suspicion for acute osteomyelitis involving the first distal phalanx.
[2021-07-25] MEDS ORDERED: VANCOMYCIN IV PER PHARMACY 1 EACH MISC MISCELLANE PRN (16:39)
[2021-07-25] MEDS ORDERED: VANCOMYCIN 1,500 MG in SODIUM CHLORIDE 0.9% 250 ML IVPB STA (16:51)
--- NOTE | 2021-07-25 16:54 | ED ---
General Adult HPI - General Chief complaint: Wound/Laceration Stated complaint: gangrenous toes Time Seen by Provider: 07/25/21 16:34 Source: patient, RN notes reviewed Mode of arrival: wheelchair Limitations: no limitations - History of Present Illness Initial comments: This is a pleasant 61-year-old male with a history of end-stage renal disease who presents to emergency department with wounds to his left first through third toes which is been present for several weeks. Patient was sent from the wound care center. He had x-ray prior to me seeing him that shows evidence of osteoarthritis involving the left great toe. No headache, no fever or chills, no changes in vision or hearing, no sore throat or difficulty with speech, no neck pain, no chest pain or shortness of breath, no abdominal pain, no nausea or vomiting, no changes in urination or bowel movements, no numbness or tingling, no extremity pain, no skin rashes or lesions. - Related Data Home Medications Medication Instructions Recorded Confirmed Aspirin EC [Ecotrin Low Dose] 81 mg PO DAILY 01/16/18 07/25/21 Citalopram Hydrobromide [CeleXA] 20 mg PO DAILY 01/16/18 07/25/21 Levothyroxine Sodium [Synthroid] 75 mcg PO DAILY 01/16/18 07/25/21 allopurinoL [Zyloprim] 100 mg PO DAILY 01/16/18 07/25/21 Albuterol Inhaler [Ventolin Hfa 2 puff INHALATION RT-Q6H PRN 11/30/19 07/25/21 Inhaler] Famotidine [Pepcid] 20 mg PO HS 11/30/19 07/25/21 busPIRone HCl [Buspar] 10 mg PO BID 11/30/19 07/25/21 amLODIPine [Norvasc] 10 mg PO DAILY 02/22/20 07/25/21 Atorvastatin Calcium [Lipitor] 40 mg PO HS 07/25/21 07/25/21 Cephalexin [Keflex] 500 mg PO TID 07/25/21 07/25/21 Folic Acid-Vit B Complex-Vit C 1 cap PO DAILY 07/25/21 07/25/21 [Nephrocaps] Gabapentin [Neurontin] 400 mg PO TID 07/25/21 07/25/21 hydrALAZINE HCL [Apresoline] 25 mg PO TID 07/25/21 07/25/21 Previous Rx's Medication Instructions Recorded carvediloL [Coreg*] 12.5 mg PO AC-BID #60 tab 01/30/18 Allergies Allergy/AdvReac Type Severity Reaction Status Date / Time Penicillins Allergy Unknown Verified 07/25/21 14:55 Childhood Review of Systems ROS Statement: Those systems with pertinent positive or pertinent negative responses have been documented in the HPI. ROS Other: All systems not noted in ROS Statement are negative. Past Medical History Past Medical History: Coronary Artery Disease (CAD), Heart Failure, COPD, Dialysis, GERD/Reflux, Hyperlipidemia, Hypertension, Renal Disease, Thyroid Disorder, Vascular Disorder Additional Past Medical History / Comment(s): recent fall with facial hematoma-n ow resolved. Other hx: Pt states he had recent hospitalization at [facility] in summer and tx for sepsis (blood infection) with picc line/antibiotic, chronic kidney failure with hemodialysis on Saturday, Saturday and Fridays, chronic anemia, mineral bone disease, cardiomyopathy, "blood clot in my heart years ago", recent back pain, weakness/falls, hypothyroid, post op I&D L submax abscess -pt had respiratory failure and was vented, recent admission here for edema & shortness of breath History of Any Multi-Drug Resistant Organisms: MRSA Date of last positivie culture/infection: 12/05/19 MDRO Source:: Blood Past Surgical History: Heart Catheterization With Stent, Orthopedic Surgery Additional Past Surgical History / Comment(s): 01/2020 pt had percutaneous aortic aneurysm repair/bilateral leg stents, PICC line L upper arm, 01/17/18 hemodialysis cath, 01/27/18 PCI with stent, I&D L submandible abscess, colonoscopy, 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 PICC line removed Past Anesthesia/Blood Transfusion Reactions: No Reported Reaction Additional Past Anesthesia/Blood Transfusion Reaction / Comment(s): Pt has received blood without reaction. Date of Last Stent Placement:: 2017 Past Psychological History: No Psychological Hx Reported Smoking Status: Current every day smoker Past Alcohol Use History: None Reported Past Drug Use History: None Reported - Past Family History Father Family Medical History: Diabetes Mellitus, Hypertension, Renal Disease Additional Family Medical History / Comment(s): Father was on hemodialysis Mother Family Medical History: Hypertension General Exam Limitations: no limitations General appearance: alert, in no apparent distress Head exam: Present: atraumatic, normocephalic, normal inspection Eye exam: Present: normal appearance, PERRL, EOMI. Absent: scleral icterus, conjunctival injection, periorbital swelling ENT exam: Present: normal exam, mucous membranes moist Neck exam: Present: normal inspection. Absent: tenderness, meningismus, lymphadenopathy Respiratory exam: Present: normal lung sounds bilaterally. Absent: respiratory distress, wheezes, rales, rhonchi, stridor Cardiovascular Exam: Present: regular rate, normal rhythm, normal heart sounds. Absent: systolic murmur, diastolic murmur, rubs, gallop, clicks GI/Abdominal exam: Present: soft, normal bowel sounds. Absent: distended, tenderness, guarding, rebound, rigid Extremities exam: Present: normal inspection, full ROM, other (. Pulses intact, capillary refill 2-3 seconds, necrosis noted to the first through third toes on the left.). Absent: tenderness, pedal edema, joint swelling, calf tenderness Back exam: Present: normal inspection Neurological exam: Present: alert, oriented X3, CN II-XII intact Psychiatric exam: Present: normal affect, normal mood Skin exam: Present: warm, dry, intact, normal color. Absent: rash Course Vital Signs 07/25/21 14:49 Temperature 97.5 F L Pulse Rate 72 Respiratory 19 Rate Blood Pressure 142/84 O2 Sat by Pulse 93 L Oximetry Medical Decision Making - Medical Decision Making Patient will be admitted and treated for osteomyelitis. Patient given vancomycin and traction on here in the ER. Case discussed in detail with the hospitalist group. Consultation for vascular, infectious disease, nephrology placed. Patient hemodynamically stable. Patient in no significant distress. - Lab Data Result diagrams: 07/25/21 17:01 07/25/21 17:01 Lab Results 07/25/21 07/25/21 07/25/21 Range/Units 17: 17: 17:01 WBC 5.7 (3.8-10.6) k/uL RBC 4.45 (4.30-5.90) m/uL Hgb 14.1 (13.0-17.5) gm/dL Hct 44.8 (39.0-53.0) % MCV 100.7 H (80.0-100.0) fL MCH 31.7 (25.0-35.0) pg MCHC 31.5 (31.0-37.0) g/dL RDW 15.2 (11.5-15.5) % Plt Count 262 (150-450) k/uL MPV 7.7 Neutrophils % 68 % Lymphocytes % 12 % Monocytes % 8 % Eosinophils % 9 % Basophils % 0 % Neutrophils # 3.9 (1.3-7.7) k/uL Lymphocytes # 0.7 L (1.0-4.8) k/uL Monocytes # 0.5 (0-1.0) k/uL Eosinophils # 0.5 (0-0.7) k/uL Basophils # 0.0 (0-0.2) k/uL Macrocytosis Slight ESR 48 H (0-15) mm/hr Sodium 135 L (137-145) mmol/L Potassium 5.0 (3.5-5.1) mmol/L Chloride 94 L (98-107) mmol/L Carbon Dioxide 22 (22-30) mmol/L Anion Gap 19 mmol/L BUN 50 H (9-20) mg/dL Creatinine 10.14 H* (0.66-1.25) mg/dL Est GFR (CKD-EPI)AfAm 6 (>60 ml/min/1.73 sqM) Est GFR (CKD-EPI)NonAf 5 (>60 ml/min/1.73 sqM) Glucose 114 H (74-99) mg/dL Plasma Lactic Acid Victorino 0.8 (0.7-2.0) mmol/L Calcium 8.6 (8.4-10.2) mg/dL Total Bilirubin 0.7 (0.2-1.3) mg/dL AST 18 (17-59) U/L ALT 10 (4-49) U/L Alkaline Phosphatase 107 (38-126) U/L C-Reactive Protein 5.7 H (<1.0) mg/dL Total Protein 7.2 (6.3-8.2) g/dL Albumin 4.1 (3.5-5.0) g/dL Coronavirus (PCR) (Not Detectd) 07/25/21 Range/Units 18:01 WBC (3.8-10.6) k/uL RBC (4.30-5.90) m/uL Hgb (13.0-17.5) gm/dL Hct (39.0-53.0) % MCV (80.0-100.0) fL MCH (25.0-35.0) pg MCHC (31.0-37.0) g/dL RDW (11.5-15.5) % Plt Count (150-450) k/uL MPV Neutrophils % % Lymphocytes % % Monocytes % % Eosinophils % % Basophils % % Neutrophils # (1.3-7.7) k/uL Lymphocytes # (1.0-4.8) k/uL Monocytes # (0-1.0) k/uL Eosinophils # (0-0.7) k/uL Basophils # (0-0.2) k/uL Macrocytosis ESR (0-15) mm/hr Sodium (137-145) mmol/L Potassium (3.5-5.1) mmol/L Chloride (98-107) mmol/L Carbon Dioxide (22-30) mmol/L Anion Gap mmol/L BUN (9-20) mg/dL Creatinine (0.66-1.25) mg/dL Est GFR (CKD-EPI)AfAm (>60 ml/min/1.73 sqM) Est GFR (CKD-EPI)NonAf (>60 ml/min/1.73 sqM) Glucose (74-99) mg/dL Plasma Lactic Acid Victorino (0.7-2.0) mmol/L Calcium (8.4-10.2) mg/dL Total Bilirubin (0.2-1.3) mg/dL AST (17-59) U/L ALT (4-49) U/L Alkaline Phosphatase (38-126) U/L C-Reactive Protein (<1.0) mg/dL Total Protein (6.3-8.2) g/dL Albumin (3.5-5.0) g/dL Coronavirus (PCR) Not Detected (Not Detectd) - Radiology Data Radiology results: report reviewed, image reviewed Disposition Clinical Impression: Osteomyelitis of toe of left foot, Abscess Disposition: ADMITTED IP TO THIS [facility] Condition: Stable
[2021-07-25] MEDS ORDERED: HYDROmorphone 1 MG/ML 1 ML SYRINGE IVP STA (17:06)
[2021-07-25] MEDS ORDERED: ONDANSETRON 4 MG/2 ML VIAL IVP STA (17:06)
[2021-07-25 17:22] LABS: Albumin 4.1 g/dL (3.5-5.0); C Reactive Protein 5.7 mg/dL (<1.0); Calcium 8.6 mg/dL (8.4-10.2); Total Bilirubin 0.7 mg/dL (0.2-1.3); Total Protein 7.2 g/dL (6.3-8.2)
[2021-07-25 17:57] LABS: Basophils % (A) 0 %; Eosinophils # (A) 0.5 k/uL (0-0.7); Eosinophils % (A) 9 %; HCT 44.8 % (39.0-53.0); HGB 14.1 gm/dL (13.0-17.5); Lymphocytes # (A) 0.7 k/uL (1.0-4.8); Lymphocytes % (A) 12 %; MCH 31.7 pg (25.0-35.0); MCHC 31.5 g/dL (31.0-37.0); MCV 100.7 fL (80.0-100.0); Macrocytosis Slight; Mean Platelet Volume 7.7; Monocytes # (A) 0.5 k/uL (0-1.0); Monocytes % (A) 8 %; Neutrophils # (A) 3.9 k/uL (1.3-7.7); Neutrophils % (A) 68 %; Platelet Count 262 k/uL (150-450); RBC 4.45 m/uL (4.30-5.90); RDW 15.2 % (11.5-15.5); WBC 5.7 k/uL (3.8-10.6)
[2021-07-25] MEDS ORDERED: ONDANSETRON 4 MG/2 ML VIAL IVP PRN (18:00)
[2021-07-25] MEDS ORDERED: NALOXONE 0.4 MG/ML 1 ML VIAL IV PRN (18:00)
[2021-07-25] MEDS ORDERED: ACETAMINOPHEN TAB 325 MG TAB PO PRN (18:00)
[2021-07-25 19:04] LABS: Erythrocyte Sedimentation Rate 48 mm/hr (0-15)
[2021-07-25] MEDS ORDERED: ALBUTEROL HFA INHALER INHALATION PRN (19:35)
[2021-07-25] MEDS ORDERED: CALCIUM CARBONATE 500 MG CHEWABLE PO PRN (19:36)
[2021-07-25] MEDS ORDERED: LORazepam 0.5 MG TAB PO PRN (19:36)
[2021-07-25] MEDS ORDERED: MELATONIN 3 MG TABLET PO PRN (19:36)
[2021-07-25] MEDS ORDERED: LACTULOSE 20 GM/30 ML CUP PO PRN (19:36)
--- NOTE | 2021-07-25 20:56 | P.HPIM ---
History of Present Illness H&P Date: 07/25/21 Chief Complaint: Toe ulcer History of presenting complaint: This is a 61-year-old patient of Dr. Srini Hastings. Chronic stable medical conditions include end-stage kidney disease on hemodialysis Saturday and Saturday with the right arm fistula, anxiety, COPD, minimal bone disease, congestive heart failure EF 50%, coronary artery disease and left below elbow amputation. Patient presents to the ER with what appears to be gangrenous changes to the left foot second and third toe. He thinks symptoms started around a month ago. History to do much about the same. He went to see his family doctor. Was started on antibiotics about a week ago. Is becoming more painful. He is not sure about some drainage. No fever no chills. Appetite is fair. Patient has continued to smoke. Patient has gotten his COVID-19 vaccine. Review of systems: GEN.: tired EYES: None HEENT: None NECK: None RESPIRATORY: Baseline Cough shortness of breath CARDIOVASCULAR: None GASTROINTESTINAL: None GENITOURINARY: None MUSCULOSKELETAL: As above LYMPHATICS: None HEMATOLOGICAL: None PSYCHIATRY: None NEUROLOGICAL: Some numbness in the feet Past medical history to include: Coronary artery disease, CHF, COPD, GERD, hyperlipidemia, hypertension, end- stage kidney disease with hemodialysis Saturday and Saturday, chronic anemia, Cardura neuropathy, and a blood clot in the heart many years ago, hypothyroid, submandibular abscess, 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 Smoking a pack a day for close to 40 years. No alcohol. Family history: Diabetes, hypertension, kidney disease Physical examination: VITAL SIGNS: 97.5, 72, 19, 142/84, 93% room air GENERAL: BMI 25.1, laying in bed, awake. EYES: Pupils equal. Conjunctiva normal. HEENT: External appearance of nose and ears normal, oral cavity grossly normal. NECK: JVD not raised; masses not palpable. HEART: First and second heart sounds are normal; no edema. LUNGS: Respiratory rate normal; decreased breath sounds, mild wheezing. ABDOMEN: Soft, nontender, liver spleen not palpable, no masses palpable. PSYCH: Alert and oriented x3; mood and affect normal. MUSCULOSKELETAL:No Clubbing/cyanosis;muscles-grossly intact EXTREMITIES: Left foot second and third toe gangrenous changes. An inflammatory changes. Right upper extremity AV fistula. Left below elbow amputation NEUROLOGICAL: Cranial nerves grossly intact; no facial asymmetry, decreased sensation distally.. LYMPHATICS: No lymph nodes palpable in the axilla and neck INVESTIGATIONS, reviewed in the clinical context: White count 5.7 hemoglobin 14.1 platelets 262 sodium 135 potassium 5. 50 creatinine 10.1 Coronavirus [PCF]: Not detected CRP 5.7 Foot x-ray: Suspected bony destruction of the first distal phalanx. More details in the x-ray. Assessment and plan: -Left foot second/third toe gangrene with possible first toe osteomyelitis Consult ID and vascular -chronic congestive heart failure exacerbation from diastolic dysfunction EF 50- 55%, POA Follow clinically -Peripheral neuropathy Neurontin 400 mg 3 times a day - COPD in a current smoker DuoNeb 3 times a day -Chronic nicotine dependence patient cigarette smoker Nicotine patch -Coronary artery disease Lipitor, Coreg, aspirin -GERD Pepcid 20 mg daily at bedtime -Hyperlipidemia Lipitor 40 mg daily at bedtime -Essential hypertension Norvasc 10 mg a day, Coreg 12.5 mg by mouth twice a day hydralazine 25 mg 3 times a day -End-stage kidney disease on hemodialysis Saturday and Saturday, 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 Celexa 20 mg daily Resume home medications. Patient started on vancomycin and ceftriaxone in the ER. Consultation to vascular ID. Nicotine patch. Blood cultures then in the ER. Past Medical History Past Medical History: Coronary Artery Disease (CAD), Heart Failure, COPD, Dialysis, GERD/Reflux, Hyperlipidemia, Hypertension, Renal Disease, Thyroid Disorder, Vascular Disorder Additional Past Medical History / Comment(s): recent fall with facial hematoma- now resolved. Other hx: Pt states he had recent hospitalization at [facility] in summer and tx for sepsis (blood infection) with picc line/antibiotic, chronic kidney failure with hemodialysis on Saturday, Saturday and Fridays, chronic anemia, mineral bone disease, cardiomyopathy, "blood clot in my heart years ago", recent back pain, weakness/falls, hypothyroid, post op I&D L submax abscess -pt had respiratory failure and was vented, recent admission here for edema & shortness of breath History of Any Multi-Drug Resistant Organisms: MRSA Date of last positivie culture/infection: 12/05/19 MDRO Source:: Blood Past Surgical History: Heart Catheterization With Stent, Orthopedic Surgery Additional Past Surgical History / Comment(s): 01/2020 pt had percutaneous aortic aneurysm repair/bilateral leg stents, PICC line L upper arm, 01/17/18 hemodialysis cath, 01/27/18 PCI with stent, I&D L submandible abscess, colonoscopy, 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 PICC line removed Past Anesthesia/Blood Transfusion Reactions: No Reported Reaction Additional Past Anesthesia/Blood Transfusion Reaction / Comment(s): Pt has received blood without reaction. Date of Last Stent Placement:: 2017 Past Psychological History: No Psychological Hx Reported Smoking Status: Current every day smoker Past Alcohol Use History: None Reported Past Drug Use History: None Reported - Past Family History Father Family Medical History: Diabetes Mellitus, Hypertension, Renal Disease Additional Family Medical History / Comment(s): Father was on hemodialysis Mother Family Medical History: Hypertension Medications and Allergies Home Medications Medication Instructions Recorded Confirmed Type Aspirin EC [Ecotrin Low Dose] 81 mg PO DAILY 01/16/18 07/25/21 History Citalopram Hydrobromide [CeleXA] 20 mg PO DAILY 01/16/18 07/25/21 History Levothyroxine Sodium [Synthroid] 75 mcg PO DAILY 01/16/18 07/25/21 History allopurinoL [Zyloprim] 100 mg PO DAILY 01/16/18 07/25/21 History carvediloL [Coreg*] 12.5 mg PO AC-BID #60 tab 01/30/18 07/25/21 Rx Albuterol Inhaler [Ventolin Hfa 2 puff INHALATION RT-Q6H PRN 11/30/19 07/25/21 History Inhaler] Famotidine [Pepcid] 20 mg PO HS 11/30/19 07/25/21 History busPIRone HCl [Buspar] 10 mg PO BID 11/30/19 07/25/21 History amLODIPine [Norvasc] 10 mg PO DAILY 02/22/20 07/25/21 History Atorvastatin Calcium [Lipitor] 40 mg PO HS 07/25/21 07/25/21 History Cephalexin [Keflex] 500 mg PO TID 07/25/21 07/25/21 History Folic Acid-Vit B Complex-Vit C 1 cap PO DAILY 07/25/21 07/25/21 History [Nephrocaps] Gabapentin [Neurontin] 400 mg PO TID 07/25/21 07/25/21 History hydrALAZINE HCL [Apresoline] 25 mg PO TID 07/25/21 07/25/21 History Allergies Allergy/AdvReac Type Severity Reaction Status Date / Time Penicillins Allergy Unknown Verified 07/25/21 14:55 Childhood Physical Exam Vitals: Vital Signs Temp Pulse Resp BP Pulse Ox 07/25/21 14:49 97.5 F L 72 19 142/84 93 L Intake and Output 07/25/21 07/25/21 07/25/21 06:59 14:59 22:59 Other: Weight 81.647 kg Results CBC & Chem 7: 07/25/21 17:01 07/25/21 17:01 Labs: Abnormal Lab Results - Last 24 Hours (Table) 07/25/21 07/25/21 Range/Units 17:01 17:01 MCV 100.7 H (80.0-100.0) fL Lymphocytes # 0.7 L (1.0-4.8) k/uL ESR 48 H (0-15) mm/hr Sodium 135 L (137-145) mmol/L Chloride 94 L (98-107) mmol/L BUN 50 H (9-20) mg/dL Creatinine 10.14 H* (0.66-1.25) mg/dL Glucose 114 H (74-99) mg/dL C-Reactive Protein 5.7 H (<1.0) mg/dL
[2021-07-25] MEDS: HYDROmorphone 0.5 MG/0.5 ML SYRINGE IVP PRN (21:49)
[2021-07-25] MEDS: ENOXAPARIN 30 MG/0.3 ML SYRINGE SQ SCH (21:53)
[2021-07-25] MEDS: carvediloL 12.5 MG TAB PO SCH (21:58)
[2021-07-25] MEDS: ATORVASTATIN 40 MG TAB PO SCH (21:58)
[2021-07-25] MEDS: NICOTINE 21MG/24HR PATCH TRANSDERM SCH (21:59)
[2021-07-25] MEDS: GABAPENTIN 400 MG CAP PO SCH (21:59)
[2021-07-25] MEDS: FAMOTIDINE 20 MG TAB PO SCH (22:01)
--- NOTE | 2021-07-25 23:05 | XR ---
EXAMINATION TYPE: XR chest 2V DATE OF EXAM: 07/25/2021 COMPARISON: 03/10/2020 HISTORY: Short of breath TECHNIQUE: FINDINGS: There is no heart failure nor confluent pneumonic infiltrate. Costophrenic angles are clear. There ar e no hilar masses. Thoracic aorta is atheromatous. There is stent in the lower thoracic aorta. IMPRESSION: No active cardiopulmonary disease. There is clearing of infiltrate at the right costophre reginaldo angle compared to old exam.
[2021-07-26] MEDS: HYDROmorphone 0.5 MG/0.5 ML SYRINGE IVP PRN ×4 (01:40→11:57)
[2021-07-26] MEDS: busPIRone HCl 10 MG TAB PO SCH ×3 (01:41→22:14)
[2021-07-26] MEDS: LEVOTHYROXINE 75 MCG TAB PO SCH (05:39)
[2021-07-26] MEDS: ASPIRIN 81 MG PO SCH (08:11)
[2021-07-26] MEDS: amLODIPine 10 MG TAB PO SCH (08:11)
[2021-07-26] MEDS: carvediloL 12.5 MG TAB PO SCH ×2 (08:12→17:28)
[2021-07-26] MEDS: GABAPENTIN 400 MG CAP PO SCH ×3 (08:12→22:13)
[2021-07-26] MEDS: allopurinoL 100 MG TAB PO SCH (08:12)
[2021-07-26] MEDS: CITALOPRAM HYDROBROMIDE 20 MG TAB PO SCH (08:12)
[2021-07-26] MEDS: NICOTINE 21MG/24HR PATCH TRANSDERM SCH (08:15)
[2021-07-26] MEDS: FOLIC ACID-VIT B COMPLEX-VIT C 1 CAP PO SCH (08:19)
[2021-07-26] MEDS: IPRATROPIUM-ALBUTEROL 3 ML NEB INHALATION SCH ×4 (09:12→20:01)
[2021-07-26] MEDS ORDERED: VANCOMYCIN 1,500 MG in SODIUM CHLORIDE 0.9% 250 ML IVPB ONE (12:00)
[2021-07-26] MEDS: HYDROmorphone 1 MG/ML 1 ML SYRINGE IVP PRN ×3 (14:23→22:16)
--- NOTE | 2021-07-26 18:50 | P.PN ---
Progress Note - Text Progress Note Date: 07/26/21 Chief Complaint: Toe ulcer History of presenting complaint: This is a 61-year-old patient of Dr. Srini Hastings. Chronic stable medical conditions include end-stage kidney disease on hemodialysis Saturday and Saturday with the right arm fistula, anxiety, COPD, minimal bone disease, congestive heart failure EF 50%, coronary artery disease and left below elbow amputation. Patient presents to the ER with what appears to be gangrenous changes to the left foot second and third toe. He thinks symptoms started around a month ago. History to do much about the same. He went to see his family doctor. Was started on antibiotics about a week ago. Is becoming more painful. He is not sure about some drainage. No fever no chills. Appetite is fair. Patient has continued to smoke. Patient has gotten his COVID-19 vaccine. July 26: Having increased pain in the gangrenous toe. Dose of Dilaudid increased. IV vancomycin. Oral intake fair. Await input from ID and vascular. Review of systems: Was done for constitutional, cardiovascular, GI, pulmonary. relevant finding as above Active Medications Acetaminophen (Acetaminophen Tab 325 Mg Tab) 650 mg PO Q6HR PRN PRN Reason: Mild Pain or Fever > 100.5 Albuterol Sulfate (Albuterol Hfa Inhaler) 2 puff INHALATION RT-Q6H PRN PRN Reason: Shortness Of Breath Albuterol/Ipratropium (Ipratropium-Albuterol 3 Ml Neb) 3 ml INHALATION RT-QID [facility] Last Admin: 07/26/21 15:57 Dose: Not Given Documented by: Allopurinol (Allopurinol 100 Mg Tab) 100 mg PO DAILY [facility] Last Admin: 07/26/21 08:12 Dose: 100 mg Documented by: Amlodipine Besylate (Amlodipine 10 Mg Tab) 10 mg PO DAILY [facility] Last Admin: 07/26/21 08:11 Dose: 10 mg Documented by: Aspirin (Aspirin 81 Mg) 81 mg PO DAILY [facility] Last Admin: 07/26/21 08:11 Dose: 81 mg Documented by: Atorvastatin Calcium (Atorvastatin 40 Mg Tab) 40 mg PO HS [facility] Last Admin: 07/25/21 21:58 Dose: 40 mg Documented by: Buspirone HCl (Buspirone Hcl 10 Mg Tab) 10 mg PO BID [facility] Last Admin: 07/26/21 08:12 Dose: 10 mg Documented by: Calcium Carbonate/Glycine (Calcium Carbonate 500 Mg Chewable) 1,000 mg PO Q4HR PRN PRN Reason: Dyspepsia Carvedilol (Carvedilol 12.5 Mg Tab) 12.5 mg PO AC-BID [facility] Last Admin: 07/26/21 17:28 Dose: 12.5 mg Documented by: Citalopram Hydrobromide (Citalopram Hydrobromide 20 Mg Tab) 20 mg PO DAILY [facility] Last Admin: 07/26/21 08:12 Dose: 20 mg Documented by: Enoxaparin Sodium (Enoxaparin 30 Mg/0.3 Ml Syringe) 30 mg SQ DAILY@1900 [facility] Last Admin: 07/25/21 21:53 Dose: 30 mg Documented by: Famotidine (Famotidine 20 Mg Tab) 20 mg PO HS [facility] Last Admin: 07/25/21 22:01 Dose: 20 mg Documented by: Gabapentin (Gabapentin 400 Mg Cap) 400 mg PO TID [facility] Last Admin: 07/26/21 17:28 Dose: 400 mg Documented by: Hydromorphone HCl (Hydromorphone 1 Mg/Ml 1 Ml Syringe) 1 mg IVP Q4HR PRN PRN Reason: Pain Last Admin: 07/26/21 18:36 Dose: 1 mg Documented by: Lactulose (Lactulose 20 Gm/30 Ml Cup) 20 gm PO DAILY PRN PRN Reason: Constipation Levothyroxine Sodium (Levothyroxine 75 Mcg Tab) 75 mcg PO 0630 [facility] Last Admin: 07/26/21 05:39 Dose: 75 mcg Documented by: Lorazepam (Lorazepam 0.5 Mg Tab) 0.5 mg PO Q6HR PRN PRN Reason: Anxiety Last Admin: 07/26/21 17:28 Dose: 0.5 mg Documented by: Melatonin (Melatonin 3 Mg Tablet) 3 mg PO HS PRN PRN Reason: Insomnia Miscellaneous Information (Vancomycin Iv Per Pharmacy 1 Each Mis) 1 each MISCELLANE DIRECTED PRN; Protocol PRN Reason: Per Protocol Multivit/Ca Carb/B Cmplx/FA/Prenat (Folic Acid-Vit B Complex-Vit C 1 Cap) 1 each PO DAILY [facility] Last Admin: 07/26/21 08:19 Dose: 1 each Documented by: Naloxone HCl (Naloxone 0.4 Mg/Ml 1 Ml Vial) 0.2 mg IV Q2M PRN PRN Reason: Opioid Reversal Nicotine (Nicotine 21mg/24hr Patch) 1 patch TRANSDERM DAILY [facility] Last Admin: 07/26/21 08:15 Dose: 1 patch Documented by: Ondansetron HCl (Ondansetron 4 Mg/2 Ml Vial) 4 mg IVP Q8HR PRN PRN Reason: Nausea And Vomiting Past medical history to include: Coronary artery disease, CHF, COPD, GERD, hyperlipidemia, hypertension, end- stage kidney disease with hemodialysis Saturday and Saturday, chronic anemia, Cardura neuropathy, and a blood clot in the heart many years ago, hypothyroid, submandibular abscess, 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 Smoking a pack a day for close to 40 years. No alcohol. Family history: Diabetes, hypertension, kidney disease Physical examination: VITAL SIGNS: 98.2, 68, 20, 132/73, 99% room air GENERAL: , laying in bed, awake. EYES: Pupils equal. Conjunctiva normal. HEENT: External appearance of nose and ears normal, oral cavity grossly normal. NECK: JVD not raised; masses not palpable. HEART: First and second heart sounds are normal; no edema. LUNGS: Respiratory rate normal; decreased breath sounds, mild wheezing. ABDOMEN: Soft, nontender, liver spleen not palpable, no masses palpable. PSYCH: Alert and oriented x3; mood and affect normal. MUSCULOSKELETAL:No Clubbing/cyanosis;muscles-grossly intact EXTREMITIES: Left foot second and third toe gangrenous changes. Some changes on the Aygestin part of the big toe An inflammatory changes. Right upper extremity AV fistula. Left below elbow amputation NEUROLOGICAL: Cranial nerves grossly intact; no facial asymmetry, decreased sensation distally.. INVESTIGATIONS, reviewed in the clinical context: White count 5.7 hemoglobin 14.1 platelets 262 sodium 135 potassium 5. 50 creatinine 10.1 Coronavirus [PCF]: Not detected CRP 5.7 Foot x-ray: Suspected bony destruction of the first distal phalanx. More details in the x-ray. EKG tracing personally reviewed by me: ST depression in lateral leads. Chest x-ray film personally reviewed by me: Cardiac medically. Lungs clear. Assessment and plan: -Left foot second/third toe gangrene with possible first toe osteomyelitis: Slow to respond Pending input from ID and vascular. IV vancomycin -chronic congestive heart failure from diastolic dysfunction EF 50-55%, POA Follow clinically -Peripheral neuropathy Neurontin 400 mg 3 times a day - COPD in a current smoker DuoNeb 3 times a day -Chronic nicotine dependence patient cigarette smoker Nicotine patch -Coronary artery disease Lipitor, Coreg, aspirin -GERD Pepcid 20 mg daily at bedtime -Hyperlipidemia Lipitor 40 mg daily at bedtime -Essential hypertension Norvasc 10 mg a day, Coreg 12.5 mg by mouth twice a day hydralazine 25 mg 3 times a day -End-stage kidney disease on hemodialysis Saturday and Saturday, with right upper extremity fistula nephrology -Hypothyroid Synthroid 75 g a day -Anxiety, depression not otherwise specified BuSpar 10 mg twice a day. Celexa 20 mg daily On IV vancomycin. Other medications to continue. Dose of Dilaudid increased. Awaiting input from ID and vascular. Discussed with the patient.
--- NOTE | 2021-07-26 20:11 | CONS ---
CONSULTATION REASON FOR CONSULT: End-stage renal disease. HISTORY OF PRESENT ILLNESS: The patient is a 61-year-old male with end-stage renal disease, on hemodialysis on a Saturday, Saturday, Saturday schedule. The patient is admitted to the hospital with a history of gangrenous changes in the left foot second and third toe. He denied any history of fever. Covid-19 PCR is negative. The patient had his last dialysis on Saturday. Overall he feels fairly well. PAST MEDICAL HISTORY: CHF, COPD, ESRD, coronary artery disease, hypothyroidism, CKD mineral bone disorder, cardiomyopathy, history of septic shock with submandibular abscess. PAST SURGICAL HISTORY: PICC line placement, dialysis catheter placement, submandibular abscess I and D, colonoscopy, left arm below-elbow amputation during childhood at [age] years of age due to injury, AV fistula right arm. SOCIAL HISTORY: Positive for smoking. No history of drug abuse or alcohol abuse. MEDICATIONS PRIOR TO ADMISSION: Included aspirin, Celexa, Synthroid, Zyloprim, Coreg, Pepcid, BuSpar, Norvasc, Lipitor, Keflex, Neurontin, Nephrocaps, hydralazine. ALLERGIES: Include PENICILLIN. EXAMINATION: Patient is currently comfortable, awake, alert, oriented x3, not in any acute distress. Blood pressure 132/73, heart rate 68 per minute, he is afebrile. Examination of the heart S1, S2. Examination of the lungs, bilateral breath sounds are heard. Abdomen is soft, nontender. Examination of lower extremities shows no evidence of edema. Left toes are currently wrapped. [employer] exam grossly intact. Patient has right below-elbow amputation. LAB: Show sodium 135, potassium 5.0, BUN 50, creatinine 10.1, hemoglobin 14.1 g/dL. ASSESSMENT: 1. End-stage renal disease, on hemodialysis on a Saturday, Saturday, Saturday schedule via right arm AV fistula. We will plan for hemodialysis today. 2. Left second and third toe gangrene/infection maintained on antibiotics. 3. Peripheral neuropathy. 4. CKD mineral bone disorder. 5. Hypertension with CKD. 6. Coronary artery disease. PLAN: Hemodialysis today. Continue with the Tums as phosphate binders. Check serum phosphorus level with labs in a.m. I do not see PhosLo or Renvela on his home med list. Thank you for this consultation. Will continue to follow the patient with you during his hospitalization. MMSOCORRO / SRINIVASN: [id number] /
[2021-07-26] MEDS: ATORVASTATIN 40 MG TAB PO SCH (22:14)
[2021-07-26] MEDS: ENOXAPARIN 30 MG/0.3 ML SYRINGE SQ SCH (22:14)
[2021-07-26] MEDS: FAMOTIDINE 20 MG TAB PO SCH (22:14)
--- NOTE | 2021-07-26 22:58 | P.CONS ---
History of Present Illness - Reason for Consult Consult date: 07/26/21 left foot toe gangrene/osteo Requesting physician: Leroy Vogt - Chief Complaint left foot toe discoloration x weeks - History of Present Illness History of present illness : Patient is 61-year-old male with a past medical he significant for end-stage renal disease on hemodialysis and a history of MRSA bacteremia concerning for likely aortitis back in November 2019 treated with daptomycin followed by suppressive antibiotic therapy this patient subsequently was lost to follow-up patient is now presenting to the ER for evaluation of left second and third toe discoloration that apparently has been going on for the last several weeks patient denies having any history of any trauma patient be complaining of pain to the left foot toe area more of a dull aching to sharp and especially worse with the dressing changes with intensity 6-7 out of 10 and apparently did to have some foul-smelling drainage patient denies any high-grade fever though, no fever has been recorded in the hospital patient did have a normal white count did have elevated BUN/creatinine no enzymes are normal CRP was 5.7 blood cultures have been obtained as well as cultures from the left foot patient was empirically started on vancomycin infectious he was consulted for further management vascular surgery has also been consulted for possible surgical management Review of system: CONSTITUTIONAL: Positive for weakness denies high-grade fever. EYES: No complaint. ENT: No complaint. RESPIRATORY: No complaint. CARDIOVASCULAR: No complaint. GENITOURINARY: No complaint. GASTROINTESTINAL: No complaint. MUSCULOSKELETAL: As per history of present illness. INTEGUMENTARY: No complaint. PSYCHOLOGIC: No complaint. ENDOCRINE: No complaint. NEUROLOGIC: No complaint. Past medical history : Reviewed, documented below Past surgical history : Reviewed, documented below Social history: Reviewed, documented below Medications: Reviewed, as documented below EXAMINATION: Vital sigans= Reviewed and documented below GENERAL DESCRIPTION: Middle-aged male lying in bed, no distress. No tachypnea or accessory muscle of respiration use. HEENT: Shows Pallor , no scleral icterus. Oral mucous membrane is dry. NECK: Trachea central, no thyromegaly. LUNGS: Unlabored breathing. Clear to auscultation anteriorly. No wheeze or crackle. HEART: S1, S2, regular rate and rhythm. ABDOMEN: Soft, no tenderness , guarding or rigidity EXTREMITIES: No edema of feet. Left second and third toe tissues necrotic changes with some foul-smelling SKIN: No rash, no masses palpable. NEUROLOGICAL: The patient is awake, alert, oriented x3, mood and affect normal. LABS AND RADIOLOGY: Reviewed results see below Assessment : Patient presented to hospital with left second and third toe necrotic changes with concern for underlying gangrene in this patient did have a previous history of MRSA infection and will need to cover for the MRSA to be the likely pathogen Plan: 1-vancomycin pharmacy to dose with a target trough of 15 while watching kidney function and Vanco trough closely. 2-awaiting vascular surgery evaluation and possible amputation or debridement and deep cultures 3-dry protective dressing to the area We will follow on clinical condition and cultures to further adjust medication if needed Thank you for this consultation we will follow the patient along with you Past Medical History Past Medical History: Coronary Artery Disease (CAD), Heart Failure, COPD, Dialysis, GERD/Reflux, Hyperlipidemia, Hypertension, Renal Disease, Thyroid Disorder, Vascular Disorder Additional Past Medical History / Comment(s): recent fall with facial hematoma- now resolved. Other hx: Pt states he had recent hospitalization at [facility] in summer and for sepsis (blood infection) with picc line/antibiotic, chronic kidney failure with hemodialysis on Saturday, Saturday and Fridays, chronic anemia, mineral bone disease, cardiomyopathy, "blood clot in my heart years ago", recent back pain, weakness/falls, hypothyroid, post op I&D L submax abscess -pt had respiratory failure and was vented, recent admission here for edema & shortness of breath History of Any Multi-Drug Resistant Organisms: MRSA Year Discovered:: 12/05/19 MDRO Source:: Blood Past Surgical History: Heart Catheterization With Stent, Orthopedic Surgery Additional Past Surgical History / Comment(s): 01/2020 pt had percutaneous aortic aneurysm repair/bilateral leg stents, PICC line L upper arm, 01/17/18 hemodialysis cath, 01/27/18 PCI with stent, I&D L submandible abscess, colonoscopy, 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 PICC line removed Past Anesthesia/Blood Transfusion Reactions: No Reported Reaction Additional Past Anesthesia/Blood Transfusion Reaction / Comm: Pt has received blood without reaction. Date of Last Stent Placement:: 2017 Past Psychological History: No Psychological Hx Reported Smoking Status: Current every day smoker Past Alcohol Use History: None Reported Past Drug Use History: None Reported - Past Family History Father Family Medical History: Diabetes Mellitus, Hypertension, Renal Disease Additional Family Medical History / Comment(s): Father was on hemodialysis Mother Family Medical History: Hypertension Medications and Allergies Home Medications Medication Instructions Recorded Confirmed Type Aspirin EC [Ecotrin Low Dose] 81 mg PO DAILY 01/16/18 07/25/21 History Citalopram Hydrobromide [CeleXA] 20 mg PO DAILY 01/16/18 07/25/21 History Levothyroxine Sodium [Synthroid] 75 mcg PO DAILY 01/16/18 07/25/21 History allopurinoL [Zyloprim] 100 mg PO DAILY 01/16/18 07/25/21 History carvediloL [Coreg*] 12.5 mg PO AC-BID #60 tab 01/30/18 07/25/21 Rx Albuterol Inhaler [Ventolin Hfa 2 puff INHALATION RT-Q6H PRN 11/30/19 07/25/21 History Inhaler] Famotidine [Pepcid] 20 mg PO HS 11/30/19 07/25/21 History busPIRone HCl [Buspar] 10 mg PO BID 11/30/19 07/25/21 History amLODIPine [Norvasc] 10 mg PO DAILY 02/22/20 07/25/21 History Atorvastatin Calcium [Lipitor] 40 mg PO HS 07/25/21 07/25/21 History Cephalexin [Keflex] 500 mg PO TID 07/25/21 07/25/21 History Folic Acid-Vit B Complex-Vit C 1 cap PO DAILY 07/25/21 07/25/21 History [Nephrocaps] Gabapentin [Neurontin] 400 mg PO TID 07/25/21 07/25/21 History hydrALAZINE HCL [Apresoline] 25 mg PO TID 07/25/21 07/25/21 History Allergies Allergy/AdvReac Type Severity Reaction Status Date / Time Penicillins Allergy Unknown Verified 07/25/21 14:55 Childhood Physical Exam Vitals: Vital Signs Temp Pulse Resp BP Pulse Ox 07/26/21 11:41 98.2 F 68 20 132/73 99 07/26/21 05:21 97.9 F 74 18 153/64 99 07/26/21 01:09 97.4 F L 70 18 146/64 92 L Intake and Output 07/26/21 07/26/21 07/26/21 06:59 14:59 22:59 Intake Total 474 Balance 474 Intake: Oral 474 Other: # Voids 0 Results CBC & Chem 7: 07/25/21 17:01 07/25/21 17:01 Labs: Abnormal Lab Results - Last 24 Hours (Table) 07/25/21 07/25/21 Range/Units 17:01 17:01 MCV 100.7 H (80.0-100.0) fL Lymphocytes # 0.7 L (1.0-4.8) k/uL ESR 48 H (0-15) mm/hr Sodium 135 L (137-145) mmol/L Chloride 94 L (98-107) mmol/L BUN 50 H (9-20) mg/dL Creatinine 10.14 H* (0.66-1.25) mg/dL Glucose 114 H (74-99) mg/dL C-Reactive Protein 5.7 H (<1.0) mg/dL Microbiology - Last 24 Hours (Table) 07/25/21 17:10 Gram Stain - Preliminary Foot - Left Wound Culture - Preliminary 07/25/21 17:10 Anaerobic Culture - Preliminary Foot - Left
[2021-07-27 00:02] LABS: Hepatitis B Surface AB- Quant 25.6 mIU/mL; Hepatitis B Surface Antibody Reactive (Nonreactive); Hepatitis B Surface Antigen Nonreactive (Nonreactive)
[2021-07-27] MEDS: HYDROmorphone 1 MG/ML 1 ML SYRINGE IVP PRN ×4 (02:19→23:08)
[2021-07-27] MEDS: LEVOTHYROXINE 75 MCG TAB PO SCH (05:58)
[2021-07-27 06:40] LABS: Phosphorus 7.2 mg/dL (2.5-4.5)
[2021-07-27 06:41] LABS: Basophils % (A) 1 %; Eosinophils # (A) 0.6 k/uL (0-0.7); Eosinophils % (A) 9 %; HCT 35.4 % (39.0-53.0); Hypochromasia Moderate; Lymphocytes # (A) 1.1 k/uL (1.0-4.8); Lymphocytes % (A) 18 %; MCV 103.2 fL (80.0-100.0); Macrocytosis Slight; Mean Platelet Volume 8.1; Monocytes # (A) 0.5 k/uL (0-1.0); Monocytes % (A) 8 %; Neutrophils # (A) 3.9 k/uL (1.3-7.7); Neutrophils % (A) 62 %; Platelet Count 181 k/uL (150-450); RBC 3.43 m/uL (4.30-5.90); RDW 14.3 % (11.5-15.5); WBC 6.3 k/uL (3.8-10.6)
[2021-07-27 07:37] LABS: Vancomycin,Random 19.4 ug/mL
[2021-07-27] MEDS: IPRATROPIUM-ALBUTEROL 3 ML NEB INHALATION SCH ×4 (07:40→19:57)
[2021-07-27] MEDS: ASPIRIN 81 MG PO SCH ×2 (08:43→09:15)
[2021-07-27] MEDS: NICOTINE 21MG/24HR PATCH TRANSDERM SCH ×2 (08:43→09:01)
[2021-07-27] MEDS: carvediloL 12.5 MG TAB PO SCH ×3 (08:43→18:20)
[2021-07-27] MEDS: CITALOPRAM HYDROBROMIDE 20 MG TAB PO SCH ×2 (08:43→09:15)
[2021-07-27] MEDS: GABAPENTIN 400 MG CAP PO SCH ×4 (08:43→20:27)
[2021-07-27] MEDS: amLODIPine 10 MG TAB PO SCH ×2 (08:43→09:15)
[2021-07-27] MEDS: allopurinoL 100 MG TAB PO SCH ×2 (08:43→09:15)
[2021-07-27] MEDS: FOLIC ACID-VIT B COMPLEX-VIT C 1 CAP PO SCH ×2 (08:43→09:15)
[2021-07-27] MEDS: busPIRone HCl 10 MG TAB PO SCH ×3 (08:43→20:07)
[2021-07-27] MEDS ORDERED: VANCOMYCIN 1,500 MG in SODIUM CHLORIDE 0.9% 250 ML IVPB ONE (09:00)
[2021-07-27 09:39] LABS: African American GFR (CKD) 7 (>60 ml/min/1.73 sqM); Anion Gap 11 mmol/L; Blood Urea Nitrogen 32 mg/dL (9-20); Calcium 8.9 mg/dL (8.4-10.2); Carbon Dioxide 19 mmol/L (22-30); Chloride 99 mmol/L (98-107); Glucose 82 mg/dL (74-99); Non-African American GFR(CKD) 6 (>60 ml/min/1.73 sqM); Sodium 129 mmol/L (137-145)
--- NOTE | 2021-07-27 11:31 | CONS ---
DATE OF CONSULTATION: 07/27/2021 This is a 61-year-old gentleman who has been admitted with history of left foot second and third toe gangrene changes, and also there is a callus formation noted on the plantar aspect. There is full-thickness gangrene noted of the second toe on the dorsal aspect and also of the third toe. Patient has been complaining of pain in the foot. Patient has had this problem for the last month or so. He [facility] of [facility]. Patient also has a history of chronic renal failure. He has a right arm fistula. He goes for dialysis 3 times a week. MEDICAL HISTORY: Medical history includes coronary artery disease, congestive heart failure, COPD, hypertension, chronic kidney disease, on dialysis. SOCIAL HISTORY: He lives with his . SURGICAL HISTORY: Patient had a traumatic amputation of his left arm during childhood. PHYSICAL EXAMINATION: Patient was seen in his room. He is afebrile. Neck is supple, trachea central. Chest clear. Abdomen soft. Patient has a fistula in the right arm with thrill present. Femorals are 1+. PT, DP not palpable. Left foot second and third toes have gangrene changes with callus formation. PLAN: I have discussed in detail. The plan is ray amputation of the second and third toes. Risks and complications were discussed, including bleeding, infection, nonhealing. Patient understands. MMODL / IJN: [id number] / MTDD
--- NOTE | 2021-07-27 15:10 | PN ---
PROGRESS NOTE DATE OF SERVICE: 07/27/2021 REASON FOR FOLLOWUP: Left second and third toe gangrene. INTERVAL HISTORY: The patient is afebrile. He is breathing comfortably. Still complaining of pain to the left second and third toe area; no worsening, though. Some control with pain medication. No chest pain, shortness of breath or cough. No abdominal pain or diarrhea. PHYSICAL EXAMINATION: Blood pressure 143/73 with a pulse of 76, temperature 97.6. He is 97% on room air. General description is an elderly male lying in bed in no distress. Respiratory system: Unlabored breathing, clear to auscultation anteriorly. Heart S1, S2. Regular rate and rhythm. Abdomen soft, no tenderness. Left second and third toes do have necrotic changes. No significant redness or drainage. LABS: Hemoglobin is 11, white count 6.3, creatinine 8.33. DIAGNOSTIC IMPRESSION AND PLAN: Patient with left second and third toe gangrene. Culture with presumptive MRSA. Patient is covered with vancomycin. For amputation this afternoon and deep cultures. Monitor clinical course closely. MMODL / IJN: [id number] /
--- NOTE | 2021-07-27 16:01 | PN ---
PROGRESS NOTE Patient is seen for followup for end-stage renal disease. He is maintained on a Saturday, Saturday, Saturday schedule for dialysis. Patient tolerated his treatment well yesterday. He is scheduled for surgery on his left foot sometime today. Wound culture is growing MRSA. Patient was evaluated by Vascular Surgery. He is planning amputation of the second and third toes. On examination today, blood pressure 143/72, heart rate 76 per minute. Patient is afebrile. Examination shows patient is euvolemic. No significant edema noted, lower extremities. SUBGRADE TESTER exam grossly intact. Labs show sodium 129, potassium 5.0, hemoglobin 11.0 g/dL. ASSESSMENT: 1. End-stage renal disease, on hemodialysis on a Saturday, Saturday, Saturday schedule. 2. Right third toe infection and necrosis, being scheduled for ray amputation. 3. Chronic kidney disease mineral bone disorder. 4. Hypertension. 5. Coronary artery disease. PLAN: Hemodialysis in a.m. Add phosphate binders, preferably not calcium-containing. MMODL / IJN: [id number] /
[2021-07-27] MEDS ORDERED: LIDOCAINE 1% INJ 10MG/ML (20 ML MDV) SQ ONE ×2 (16:17→16:58)
[2021-07-27] MEDS ORDERED: SODIUM CHLORIDE 0.9% 1,000 ML IV ONE (16:26)
[2021-07-27] MEDS ORDERED: fentaNYL (PF) 50 MCG/ML 2 ML AMP IVP ONE ×2 (16:44→16:47)
[2021-07-27] MEDS ORDERED: PROPOFOL 10 MG/ML 20 ML VIAL IV ONE (16:46)
[2021-07-27] MEDS ORDERED: KETAMINE 10 MG/ML 20 ML VIAL ONE (16:46)
[2021-07-27] MEDS ORDERED: fentaNYL (PF) 50 MCG/ML 2 ML AMP ONE (16:46)
[2021-07-27] MEDS ORDERED: MIDAZOLAM 2 MG/2 ML VIAL ONE (16:46)
--- NOTE | 2021-07-27 17:22 | P.PN ---
Progress Note - Text Progress Note Date: 07/27/21 Chief Complaint: Toe ulcer History of presenting complaint: This is a 61-year-old patient of Dr. Srini Hastings. Chronic stable medical conditions include end-stage kidney disease on hemodialysis Saturday and Saturday with the right arm fistula, anxiety, COPD, minimal bone disease, congestive heart failure EF 50%, coronary artery disease and left below elbow amputation. Patient presents to the ER with what appears to be gangrenous changes to the left foot second and third toe. He thinks symptoms started around a month ago. History to do much about the same. He went to see his family doctor. Was started on antibiotics about a week ago. Is becoming more painful. He is not sure about some drainage. No fever no chills. Appetite is fair. Patient has continued to smoke. Patient has gotten his COVID-19 vaccine. July 26: Having increased pain in the gangrenous toe. Dose of Dilaudid increased. IV vancomycin. Oral intake fair. Await input from ID and vascular. July 27: On vancomycin. So the patient is supple. Sitting up in a chair. W as seen by Dr. Bernard from vascular. Pending the amputation sometime today. On dialysis schedule. Patient had some concerns about the surgery. Discussed. It is more apprehension. Review of systems: Was done for constitutional, cardiovascular, GI, pulmonary. relevant finding as above Active Medications Acetaminophen (Acetaminophen Tab 325 Mg Tab) 650 mg PO Q6HR PRN PRN Reason: Mild Pain or Fever > 100.5 Albuterol Sulfate (Albuterol Hfa Inhaler) 2 puff INHALATION RT-Q6H PRN PRN Reason: Shortness Of Breath Albuterol/Ipratropium (Ipratropium-Albuterol 3 Ml Neb) 3 ml INHALATION RT-QID [facility] Last Admin: 07/27/21 15:45 Dose: Not Given Documented by: Allopurinol (Allopurinol 100 Mg Tab) 100 mg PO DAILY [facility] Last Admin: 07/27/21 09:15 Dose: 100 mg Documented by: Amlodipine Besylate (Amlodipine 10 Mg Tab) 10 mg PO DAILY [facility] Last Admin: 07/27/21 09:15 Dose: 10 mg Documented by: Aspirin (Aspirin 81 Mg) 81 mg PO DAILY [facility] Last Admin: 07/27/21 09:15 Dose: 81 mg Documented by: Atorvastatin Calcium (Atorvastatin 40 Mg Tab) 40 mg PO HS [facility] Last Admin: 07/26/21 22:14 Dose: 40 mg Documented by: Buspirone HCl (Buspirone Hcl 10 Mg Tab) 10 mg PO BID [facility] Last Admin: 07/27/21 09:15 Dose: 10 mg Documented by: Calcium Carbonate/Glycine (Calcium Carbonate 500 Mg Chewable) 1,000 mg PO Q4HR PRN PRN Reason: Dyspepsia Carvedilol (Carvedilol 12.5 Mg Tab) 12.5 mg PO AC-BID [facility] Last Admin: 07/27/21 09:16 Dose: 12.5 mg Documented by: Citalopram Hydrobromide (Citalopram Hydrobromide 20 Mg Tab) 20 mg PO DAILY [facility] Last Admin: 07/27/21 09:15 Dose: 20 mg Documented by: Enoxaparin Sodium (Enoxaparin 30 Mg/0.3 Ml Syringe) 30 mg SQ DAILY@1900 [facility] Last Admin: 07/26/21 22:14 Dose: 30 mg Documented by: Famotidine (Famotidine 20 Mg Tab) 20 mg PO HS [facility] Last Admin: 07/26/21 22:14 Dose: 20 mg Documented by: Gabapentin (Gabapentin 400 Mg Cap) 400 mg PO TID [facility] Last Admin: 07/27/21 09:15 Dose: 400 mg Documented by: Hydromorphone HCl (Hydromorphone 1 Mg/Ml 1 Ml Syringe) 1 mg IVP Q4HR PRN PRN Reason: Pain Last Admin: 07/27/21 05:58 Dose: 1 mg Documented by: Lactulose (Lactulose 20 Gm/30 Ml Cup) 20 gm PO DAILY PRN PRN Reason: Constipation Levothyroxine Sodium (Levothyroxine 75 Mcg Tab) 75 mcg PO 0630 [facility] Last Admin: 07/27/21 05:58 Dose: 75 mcg Documented by: Lorazepam (Lorazepam 0.5 Mg Tab) 0.5 mg PO Q6HR PRN PRN Reason: Anxiety Last Admin: 07/26/21 17:28 Dose: 0.5 mg Documented by: Melatonin (Melatonin 3 Mg Tablet) 3 mg PO HS PRN PRN Reason: Insomnia Miscellaneous Information ([facility] 1 each MISCELLANE DIRECTED PRN; Protocol PRN Reason: Per Protocol Multivit/Ca Carb/B Cmplx/FA/Prenat (Folic Acid-Vit B Complex-Vit C 1 Cap) 1 each PO DAILY [facility] Last Admin: 07/27/21 09:15 Dose: 1 each Documented by: Naloxone HCl (Naloxone 0.4 Mg/Ml 1 Ml Vial) 0.2 mg IV Q2M PRN PRN Reason: Opioid Reversal Nicotine (Nicotine 21mg/24hr Patch) 1 patch TRANSDERM DAILY [facility] Last Admin: 07/27/21 09:01 Dose: 1 patch Documented by: Ondansetron HCl (Ondansetron 4 Mg/2 Ml Vial) 4 mg IVP Q8HR PRN PRN Reason: Nausea And Vomiting Sevelamer Carbonate (Sevelamer 800 Mg Tab) 800 mg PO TID-W/MEALS [facility] Past medical history to include: Coronary artery disease, CHF, COPD, GERD, hyperlipidemia, hypertension, end- stage kidney disease with hemodialysis Saturday and Saturday, chronic anemia, Cardura neuropathy, and a blood clot in the heart many years ago, hypothyroid, submandibular abscess, 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 Smoking a pack a day for close to 40 years. No alcohol. Family history: Diabetes, hypertension, kidney disease Physical examination: VITAL SIGNS: 97.6, 76, 20, 143/72, 97% room air GENERAL: , Sitting up in a chair, awake. EYES: Pupils equal. Conjunctiva normal. HEENT: External appearance of nose and ears normal, oral cavity grossly normal. NECK: JVD not raised; masses not palpable. HEART: First and second heart sounds are normal; no edema. LUNGS: Respiratory rate normal; decreased breath sounds, mild wheezing. ABDOMEN: Soft, nontender, liver spleen not palpable, no masses palpable. PSYCH: Alert and oriented x3; mood and affect normal. MUSCULOSKELETAL:No Clubbing/cyanosis;muscles-grossly intact EXTREMITIES: Left foot second and third toe gangrenous changes. Some changes on the adjoining part of the big toe Right upper extremity AV fistula. Left below elbow amputation NEUROLOGICAL: Cranial nerves grossly intact; no facial asymmetry, decreased sensation distally.. INVESTIGATIONS, reviewed in the clinical context: White count 6.3 hemoglobin 11 lately it's 181 sodium 129 potassium 5. 32 creatinine 8.33. Pro-calcitonin 0.98 vancomycin 19.4 White count 5.7 hemoglobin 14.1 platelets 262 sodium 135 potassium 5. 50 creatinine 10.1 Coronavirus [PCF]: Not detected CRP 5.7 Foot x-ray: Suspected bony destruction of the first distal phalanx. More details in the x-ray. EKG tracing personally reviewed by me: ST depression in lateral leads. Chest x-ray film personally reviewed by me: Cardiac medically. Lungs clear. Assessment and plan: -Left foot second/third toe gangrene with possible first toe osteomyelitis: Not improving. Pending ray amputation today. IV vancomycin -chronic congestive heart failure from diastolic dysfunction EF 50-55%, POA Follow clinically -Peripheral neuropathy Neurontin 400 mg 3 times a day - COPD in a current smoker DuoNeb 3 times a day -Chronic nicotine dependence patient cigarette smoker Nicotine patch -Coronary artery disease Lipitor, Coreg, aspirin -GERD Pepcid 20 mg daily at bedtime -Hyperlipidemia Lipitor 40 mg daily at bedtime -Essential hypertension Norvasc 10 mg a day, Coreg 12.5 mg by mouth twice a day hydralazine 25 mg 3 times a day -End-stage kidney disease on hemodialysis Saturday and Saturday, with right upper extremity fistula nephrology -Hypothyroid Synthroid 75 g a day -Anxiety, depression not otherwise specified BuSpar 10 mg twice a day. Celexa 20 mg daily On IV vancomycin. Pain medications. Care was discussed with the patient. Questions around surgery were answered. Going down for surgery later today. Smoke cessation counseling: This was done with the patient. Nicotine patch is being given. More than 3 minutes was spent for this
[2021-07-27] MEDS: SEVELAMER 800 MG TAB PO SCH (18:20)
[2021-07-27] MEDS: ENOXAPARIN 30 MG/0.3 ML SYRINGE SQ SCH (19:20)
[2021-07-27] MEDS: FAMOTIDINE 20 MG TAB PO SCH (20:07)
[2021-07-27] MEDS: ATORVASTATIN 40 MG TAB PO SCH (20:08)
--- NOTE | 2021-07-27 21:58 | OP ---
OPERATIVE REPORT PREOPERATIVE DIAGNOSIS: Gangrene of the left foot second and third toe. POSTOPERATIVE DIAGNOSIS: Gangrene of the left foot second and third toe. OPERATION: Left foot second and third toe ray amputation at metatarsophalangeal joint. This patient has history of chronic renal failure and also patient has ischemic toes involving the second and third toe with gangrene changes. Left foot was prepped and drapes applied in a sterile manner. A transverse incision made at the metatarsophalangeal joint on the dorsal aspect and extending to the plantar aspect deepened through skin fat and fascia. Tendons were divided and the patient reached the metatarsal phalangeal joint. The second and third toe was removed at metatarsophalangeal joint. No excessive bleeding was noted. There was some venous bleeding which was controlled. After that, wound was copiously irrigated with hydrogen peroxide, incision was closed with 1 layer using 0 Vicryl 3-[address] Aquacel silver to the wound. Dressing applied. The patient tolerated the procedure well and transferred to recovery in satisfactory condition. MMODL / IJN: [id number] /
[2021-07-28] MEDS: HYDROmorphone 1 MG/ML 1 ML SYRINGE IVP PRN ×5 (03:17→22:32)
[2021-07-28] MEDS: LEVOTHYROXINE 75 MCG TAB PO SCH (05:47)
[2021-07-28] MEDS: SEVELAMER 800 MG TAB PO SCH ×3 (08:02→18:10)
[2021-07-28] MEDS: CITALOPRAM HYDROBROMIDE 20 MG TAB PO SCH (08:02)
[2021-07-28] MEDS: GABAPENTIN 400 MG CAP PO SCH ×3 (08:02→21:24)
[2021-07-28] MEDS: busPIRone HCl 10 MG TAB PO SCH ×2 (08:02→21:24)
[2021-07-28] MEDS: allopurinoL 100 MG TAB PO SCH (08:02)
[2021-07-28] MEDS: carvediloL 12.5 MG TAB PO SCH ×2 (08:02→18:08)
[2021-07-28] MEDS: NICOTINE 21MG/24HR PATCH TRANSDERM SCH (08:02)
[2021-07-28] MEDS: amLODIPine 10 MG TAB PO SCH (08:02)
[2021-07-28] MEDS: ASPIRIN 81 MG PO SCH (08:02)
[2021-07-28] MEDS: FOLIC ACID-VIT B COMPLEX-VIT C 1 CAP PO SCH (08:03)
[2021-07-28] MEDS: HYDROcodone/APAP 5-325MG 1 EACH TAB PO PRN ×3 (09:18→21:27)
[2021-07-28] MEDS: IPRATROPIUM-ALBUTEROL 3 ML NEB INHALATION SCH ×4 (10:51→19:45)
--- NOTE | 2021-07-28 15:34 | PN ---
PROGRESS NOTE The patient had a ray amputation of the second and third toe yesterday. Today we have changed the dressing. The base of the wound looks clean. We used Aquacel silver. We changed the dressing today. The patient is on IV antibiotics. We will change the next dressing on Saturday. DENNIS / DARREL: [id number] /
--- NOTE | 2021-07-28 15:53 | PN ---
PROGRESS NOTE DATE OF SERVICE: 07/28/2021 REASON FOR FOLLOWUP: Left second and third toe gangrene. INTERVAL HISTORY: The patient is afebrile. The patient is breathing comfortably. The patient denies having any chest pain, shortness of breath or cough. No abdominal pain or worsening pain to the left foot wound areas. PHYSICAL EXAMINATION: Blood pressure 105/51 with a pulse of 70, temperature 98.8. He is 92% on room air. General description is a middle-aged male up in the bed in no distress. Respiratory system: Unlabored breathing. Clear to auscultation anteriorly. Heart S1, S2. Regular rate and rhythm. Abdomen soft, no tenderness. Left foot is currently dressed. No obvious drainage on the dressing. LABS: Hemoglobin is 11, white count 6.3. Creatinine local cultures with MRSA. Blood culture has been negative. DIAGNOSTIC IMPRESSION AND PLAN: Patient with left second and third toe gangrene, status post amputation with infected parts removed. Patient for now continue with the vancomycin and monitor his clinical course closely. MMODL / IJN: [id number] /
--- NOTE | 2021-07-28 17:26 | PN ---
PROGRESS NOTE Patient is seen for followup for end-stage renal disease. He is currently comfortable, awake, not in any acute distress. The patient is status post amputation of his left second and third toe done yesterday by Dr. Bautista. He is complaining of pain. PHYSICAL EXAMINATION: On examination today, blood pressure 105/51, heart rate 70 per minute. He is afebrile. Examination of the heart S1, S2. Examination of the lungs, bilateral breath sounds are heard. Abdomen is soft, nontender. Examination of lower extremities shows no significant edema. Left foot is currently wrapped. ASSISTANT STATISTICIAN exam grossly intact. LAB: Show sodium 129, potassium 5.0, hemoglobin 11.0. ASSESSMENT: 1. End-stage renal disease, on hemodialysis on a Saturday, Saturday, Saturday schedule. 2. Left second and third toe gangrene status post amputation. 3. CKD mineral bone disorder. 4. Left below-elbow amputation during childhood. PLAN: Hemodialysis today. MMODL / IJN: [id number] /
--- NOTE | 2021-07-28 18:00 | P.PN ---
Progress Note - Text Progress Note Date: 07/28/21 Chief Complaint: Toe ulcer History of presenting complaint: This is a 61-year-old patient of Dr. Srini Hastings. Chronic stable medical conditions include end-stage kidney disease on hemodialysis Saturday and Saturday with the right arm fistula, anxiety, COPD, minimal bone disease, congestive heart failure EF 50%, coronary artery disease and left below elbow amputation. Patient presents to the ER with what appears to be gangrenous changes to the left foot second and third toe. He thinks symptoms started around a month ago. History to do much about the same. He went to see his family doctor. Was started on antibiotics about a week ago. Is becoming more painful. He is not sure about some drainage. No fever no chills. Appetite is fair. Patient has continued to smoke. Patient has gotten his COVID-19 vaccine. July 26: Having increased pain in the gangrenous toe. Dose of Dilaudid increased. IV vancomycin. Oral intake fair. Await input from ID and vascular. July 27: On vancomycin. So the patient is supple. Sitting up in a chair. W as seen by Dr. Bernard from vascular. Pending the amputation sometime today. On dialysis schedule. Patient had some concerns about the surgery. Discussed. It is more apprehension. July 28: Had dressing changes done by Dr. Bernard today. Wound healing well.. Some local pain is present. Oral intake fair. Hemodialysis today. Review of systems: Was done for constitutional, cardiovascular, GI, pulmonary. relevant finding as above Active Medications Acetaminophen (Acetaminophen Tab 325 Mg Tab) 650 mg PO Q6HR PRN PRN Reason: Mild Pain or Fever > 100.5 Hydrocodone Bitart/Acetaminophen (Hydrocodone/Apap 5-325mg 1 Each Tab) 1 each PO Q6HR PRN PRN Reason: Pain Last Admin: 07/28/21 16:25 Dose: 1 each Documented by: Albuterol Sulfate (Albuterol Hfa Inhaler) 2 puff INHALATION RT-Q6H PRN PRN Reason: Shortness Of Breath Albuterol/Ipratropium (Ipratropium-Albuterol 3 Ml Neb) 3 ml INHALATION RT-QID AILYN Last Admin: 07/28/21 15:54 Dose: 3 ml Documented by: Allopurinol (Allopurinol 100 Mg Tab) 100 mg PO DAILY [facility] Last Admin: 07/28/21 08:02 Dose: 100 mg Documented by: Amlodipine Besylate (Amlodipine 10 Mg Tab) 10 mg PO DAILY [facility] Last Admin: 07/28/21 08:02 Dose: 10 mg Documented by: Aspirin (Aspirin 81 Mg) 81 mg PO DAILY [facility] Last Admin: 07/28/21 08:02 Dose: 81 mg Documented by: Atorvastatin Calcium (Atorvastatin 40 Mg Tab) 40 mg PO [facility] Last Admin: 07/27/21 20:08 Dose: 40 mg Documented by: Buspirone HCl (Buspirone Hcl 10 Mg Tab) 10 mg PO BID [facility] Last Admin: 07/28/21 08:02 Dose: 10 mg Documented by: Calcium Carbonate/Glycine (Calcium Carbonate 500 Mg Chewable) 1,000 mg PO Q4HR PRN PRN Reason: Dyspepsia Carvedilol (Carvedilol 12.5 Mg Tab) 12.5 mg PO AC-BID [facility] Last Admin: 07/28/21 08:02 Dose: 12.5 mg Documented by: Citalopram Hydrobromide (Citalopram Hydrobromide 20 Mg Tab) 20 mg PO DAILY [facility] Last Admin: 07/28/21 08:02 Dose: 20 mg Documented by: Enoxaparin Sodium (Enoxaparin 30 Mg/0.3 Ml Syringe) 30 mg SQ DAILY@1900 [facility] Last Admin: 07/27/21 19:20 Dose: 30 mg Documented by: Famotidine (Famotidine 20 Mg Tab) 20 mg PO HS [facility] Last Admin: 07/27/21 20:07 Dose: 20 mg Documented by: Gabapentin (Gabapentin 400 Mg Cap) 400 mg PO TID [facility] Last Admin: 07/28/21 16:25 Dose: 400 mg Documented by: Hydromorphone HCl (Hydromorphone 1 Mg/Ml 1 Ml Syringe) 1 mg IVP Q4HR PRN PRN Reason: Pain Last Admin: 07/28/21 12:27 Dose: 1 mg Documented by: Lactulose (Lactulose 20 Gm/30 Ml Cup) 20 gm PO DAILY PRN PRN Reason: Constipation Levothyroxine Sodium (Levothyroxine 75 Mcg Tab) 75 mcg PO 0630 [facility] Last Admin: 07/28/21 05:47 Dose: 75 mcg Documented by: Lorazepam (Lorazepam 0.5 Mg Tab) 0.5 mg PO Q6HR PRN PRN Reason: Anxiety Last Admin: 07/26/21 17:28 Dose: 0.5 mg Documented by: Melatonin (Melatonin 3 Mg Tablet) 3 mg PO HS PRN PRN Reason: Insomnia Last Admin: 07/27/21 20:08 Dose: 3 mg Documented by: Miscellaneous Information (Vancomycin Iv Per Pharmacy 1 Each Misc) 1 each MISCELLANE DIRECTED PRN; Protocol PRN Reason: Per Protocol Multivit/Ca Carb/B Cmplx/FA/Prenat (Folic Acid-Vit B Complex-Vit C 1 Cap) 1 each PO DAILY [facility] Last Admin: 07/28/21 08:03 Dose: 1 each Documented by: Naloxone HCl (Naloxone 0.4 Mg/Ml 1 Ml Vial) 0.2 mg IV Q2M PRN PRN Reason: Opioid Reversal Nicotine (Nicotine 21mg/24hr Patch) 1 patch TRANSDERM DAILY [facility] Last Admin: 07/28/21 08:02 Dose: 1 patch Documented by: Ondansetron HCl (Ondansetron 4 Mg/2 Ml Vial) 4 mg IVP Q8HR PRN PRN Reason: Nausea And Vomiting Sevelamer Carbonate (Sevelamer 800 Mg Tab) 800 mg PO TID-W/MEALS [facility] Last Admin: 07/28/21 12:36 Dose: 800 mg Documented by: Past medical history to include: Coronary artery disease, CHF, COPD, GERD, hyperlipidemia, hypertension, end- stage kidney disease with hemodialysis Saturday and Saturday, chronic anemia, Cardura neuropathy, and a blood clot in the heart many years ago, hypothyroid, submandibular abscess, 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 Smoking a pack a day for close to 40 years. No alcohol. Family history: Diabetes, hypertension, kidney disease Physical examination: VITAL SIGNS: 98.8, 70, 17, 105/51, 92% room air GENERAL: , Reclining in bed, awake. EYES: Pupils equal. Conjunctiva normal. HEENT: External appearance of nose and ears normal, oral cavity grossly normal. NECK: JVD not raised; masses not palpable. HEART: First and second heart sounds are normal; no edema. LUNGS: Respiratory rate normal; decreased breath sounds, mild wheezing. ABDOMEN: Soft, nontender, liver spleen not palpable, no masses palpable. PSYCH: Alert and oriented x3; mood and affect normal. MUSCULOSKELETAL:No Clubbing/cyanosis;muscles-grossly intact EXTREMITIES: Left foot in a dressing. Right upper extremity AV fistula. Left below elbow amputation NEUROLOGICAL: Cranial nerves grossly intact; no facial asymmetry, decreased sensation distally.. INVESTIGATIONS, reviewed in the clinical context: White count 6.3 hemoglobin 11 lately it's 181 sodium 129 potassium 5. 32 creatinine 8.33. Pro-calcitonin 0.98 vancomycin 19.4 White count 5.7 hemoglobin 14.1 platelets 262 sodium 135 potassium 5. 50 creatinine 10.1 Coronavirus [PCF]: Not detected CRP 5.7 Foot x-ray: Suspected bony destruction of the first distal phalanx. More details in the x-ray. EKG tracing personally reviewed by me: ST depression in lateral leads. Chest x-ray film personally reviewed by me: Cardiac medically. Lungs clear. Assessment and plan: -Left foot second/third toe gangrene with possible first toe osteomyelitis: July 27: ray amputation by Dr. Bernard.. IV vancomycin -chronic congestive heart failure from diastolic dysfunction EF 50-55%, POA Follow clinically -Peripheral neuropathy Neurontin 400 mg 3 times a day - COPD in a current smoker DuoNeb 3 times a day -Chronic nicotine dependence patient cigarette smoker Nicotine patch -Coronary artery disease Lipitor, Coreg, aspirin -GERD Pepcid 20 mg daily at bedtime -Hyperlipidemia Lipitor 40 mg daily at bedtime -Essential hypertension Norvasc 10 mg a day, Coreg 12.5 mg by mouth twice a day hydralazine 25 mg 3 times a day -End-stage kidney disease on hemodialysis Saturday and Saturday, with right upper extremity fistula nephrology -Hypothyroid Synthroid 75 g a day -Anxiety, depression not otherwise specified BuSpar 10 mg twice a day. Celexa 20 mg daily Continue current medications. IV vancomycin with hemodialysis. Being followed by ID. Discussed with Dr. Bernard. Surgically stable.
[2021-07-28] MEDS: ATORVASTATIN 40 MG TAB PO SCH (21:24)
[2021-07-28] MEDS: ENOXAPARIN 30 MG/0.3 ML SYRINGE SQ SCH (21:24)
[2021-07-28] MEDS: FAMOTIDINE 20 MG TAB PO SCH (21:24)
[2021-07-29 05:38] VITALS: RESP 16; TEMP 99.1
[2021-07-29] MEDS: LEVOTHYROXINE 75 MCG TAB PO SCH (06:07)
[2021-07-29] MEDS: HYDROcodone/APAP 5-325MG 1 EACH TAB PO PRN ×2 (06:07→14:23)
[2021-07-29] MEDS: IPRATROPIUM-ALBUTEROL 3 ML NEB INHALATION SCH ×2 (07:58→11:44)
[2021-07-29] MEDS: HYDROmorphone 1 MG/ML 1 ML SYRINGE IVP PRN (08:41)
[2021-07-29] MEDS: busPIRone HCl 10 MG TAB PO SCH (08:46)
[2021-07-29] MEDS: FOLIC ACID-VIT B COMPLEX-VIT C 1 CAP PO SCH (08:46)
[2021-07-29] MEDS: CITALOPRAM HYDROBROMIDE 20 MG TAB PO SCH (08:46)
[2021-07-29] MEDS: GABAPENTIN 400 MG CAP PO SCH (08:46)
[2021-07-29] MEDS: NICOTINE 21MG/24HR PATCH TRANSDERM SCH (08:46)
[2021-07-29] MEDS: carvediloL 12.5 MG TAB PO SCH (08:46)
[2021-07-29] MEDS: allopurinoL 100 MG TAB PO SCH (08:46)
[2021-07-29] MEDS: ASPIRIN 81 MG PO SCH (08:46)
[2021-07-29] MEDS: SEVELAMER 800 MG TAB PO SCH (08:46)
[2021-07-29] MEDS: amLODIPine 10 MG TAB PO SCH (08:46)
[2021-07-29] MEDS ORDERED: VANCOMYCIN 1,500 MG in SODIUM CHLORIDE 0.9% 250 ML IVPB ONE (12:00)
[2021-07-29 12:24] VITALS: BP 104/59; PULSE 76
--- NOTE | 2021-07-29 16:20 | P.DS ---
Providers Date of admission: 07/25/21 18:07 Expected date of discharge: 07/29/21 Attending physician: Leroy Vogt Consults: 07/25/21 18:00 Consult Physician Routine Consulting Provider: Nuria Beasley Consult Reason/Comments: Osteomyelitis Do you want consulting provider notified?: Yes Consult Physician Routine Consulting Provider: Edel Vázquez Consult Reason/Comments: End-stage renal disease on hemodialysis Do you want consulting provider notified?: Yes 07/25/21 18:04 Consult Physician Routine Consulting Provider: Javi Bautista Consult Reason/Comments: Osteomyelitis, left toes with necrosis Do you want consulting provider notified?: Yes Primary care physician: [facility] Course: Chief Complaint: Toe ulcer History of presenting complaint: This is a 61-year-old patient of Dr. Srini Hastings. Chronic stable medical conditions include end-stage kidney disease on hemodialysis Saturday and Saturday with the right arm fistula, anxiety, COPD, minimal bone disease, congestive heart failure EF 50%, coronary artery disease and left below elbow amputation. Patient presents to the ER with what appears to be gangrenous changes to the left foot second and third toe. He thinks symptoms started around a month ago. History to do much about the same. He went to see his family doctor. Was started on antibiotics about a week ago. Is becoming more painful. He is not sure about some drainage. No fever no chills. Appetite is fair. Patient has continued to smoke. Patient has gotten his COVID-19 vaccine. July 26: Having increased pain in the gangrenous toe. Dose of Dilaudid increased. IV vancomycin. Oral intake fair. Await input from ID and vascular. July 27: On vancomycin. So the patient is supple. Sitting up in a chair. Was seen by Dr. Bernard from vascular. Pending the amputation sometime today. On dialysis schedule. Patient had some concerns about the surgery. Discussed. It is more apprehension. July 28: Had dressing changes done by Dr. Bernard today. Wound healing well.. Some local pain is present. Oral intake fair. Hemodialysis today. July 29: Patient doing well. Cleared by nephrology, ID and Dr. Bernard. He'll follow up with Dr. Bernard at the wound Center. 2 more weeks of vancomycin with hemodialysis. Discussed with Dr. Vázquez. Questions answered. Patient counseled about smoking. Add Symbicort. Cultures positive for MRSA. Discussed with patient. Discussion and discharge planning more than 35 minutes Consultation: Dr. Vázquez from nephrology Dr. Beasley from ID Dr. Bernard from vascular Past medical history to include: Coronary artery disease, CHF, COPD, GERD, hyperlipidemia, hypertension, end- stage kidney disease with hemodialysis Saturday and Saturday, chronic anemia, Cardura neuropathy, and a blood clot in the heart many years ago, hypothyroid, submandibular abscess, 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 Smoking a pack a day for close to 40 years. No alcohol. Family history: Diabetes, hypertension, kidney disease Physical examination: VITAL SIGNS: 99.1, 79, 16, 111/62, 98% room air GENERAL: , Reclining in bed, awake. EYES: Pupils equal. Conjunctiva normal. HEENT: External appearance of nose and ears normal, oral cavity grossly normal. NECK: JVD not raised; masses not palpable. HEART: First and second heart sounds are normal; no edema. LUNGS: Respiratory rate normal; decreased breath sounds, mild wheezing. ABDOMEN: Soft, nontender, liver spleen not palpable, no masses palpable. PSYCH: Alert and oriented x3; mood and affect normal. MUSCULOSKELETAL:No Clubbing/cyanosis;muscles-grossly intact EXTREMITIES: Left foot in a dressing. Right upper extremity AV fistula. Left below elbow amputation NEUROLOGICAL: Cranial nerves grossly intact; no facial asymmetry, decreased sensation distally.. INVESTIGATIONS, reviewed in the clinical context: White count 6.3 hemoglobin 11 lately it's 181 sodium 129 potassium 5. 32 creatinine 8.33. Pro-calcitonin 0.98 vancomycin 19.4 White count 5.7 hemoglobin 14.1 platelets 262 sodium 135 potassium 5. 50 creatinine 10.1 Coronavirus [PCF]: Not detected CRP 5.7 Foot x-ray: Suspected bony destruction of the first distal phalanx. More details in the x-ray. EKG tracing personally reviewed by me: ST depression in lateral leads. Chest x-ray film personally reviewed by me: Cardiac medically. Lungs clear. Assessment and plan: -Left foot second/third toe gangrene with possible first toe osteomyelitis: July 27: ray amputation by Dr. Bernard.. IV vancomycin for 2 more weeks with hemodialysis. follow up with Dr. Bernard in the wound Center. -chronic congestive heart failure from diastolic dysfunction EF 50-55%, POA Follow clinically -Peripheral neuropathy Neurontin 400 mg 3 times a day - COPD in a current smoker Symbicort 1604.5 one puff twice a day. Albuterol when necessary -Chronic nicotine dependence patient cigarette smoker Nicotine patch -Coronary artery disease Lipitor, Coreg, aspirin -GERD Pepcid 20 mg daily at bedtime -Hyperlipidemia Lipitor 40 mg daily at bedtime -Essential hypertension Norvasc 10 mg a day, Coreg 12.5 mg by mouth twice a day hydralazine 25 mg 3 times a day -End-stage kidney disease on hemodialysis Saturday and Saturday, with r ight upper extremity fistula nephrology -Hypothyroid Synthroid 75 g a day -Anxiety, depression not otherwise specified BuSpar 10 mg twice a day. Celexa 20 mg daily Disposition: Home Plan - Discharge Summary New Discharge Prescriptions: New Sevelamer [Renvela] 800 mg PO TID-W/MEALS #90 tab Budesonide-Formot 160-4.5 Mcg [Symbicort 160-4.5 Mcg Inhaler] 1 puff INHALATION BID #1 each Nicotine 21Mg/24Hr Patch [Habitrol] 1 patch TRANSDERM DAILY #14 patch HYDROcodone/APAP 5-325MG [[place] 5-325] 1 each PO Q6HR PRN #12 tab PRN Reason: Pain Continue Citalopram Hydrobromide [CeleXA] 20 mg PO DAILY Aspirin EC [Ecotrin Low Dose] 81 mg PO DAILY Levothyroxine Sodium [Synthroid] 75 mcg PO DAILY allopurinoL [Zyloprim] 100 mg PO DAILY carvediloL [Coreg*] 12.5 mg PO AC-BID #60 tab Famotidine [Pepcid] 20 mg PO HS busPIRone HCl [Buspar] 10 mg PO BID Albuterol Inhaler [Ventolin Hfa Inhaler] 2 puff INHALATION RT-Q6H PRN PRN Reason: Shortness Of Breath amLODIPine [Norvasc] 10 mg PO DAILY Atorvastatin Calcium [Lipitor] 40 mg PO HS Folic Acid-Vit B Complex-Vit C [Nephrocaps] 1 cap PO DAILY Gabapentin [Neurontin] 400 mg PO TID Discontinued Cephalexin [Keflex] 500 mg PO TID hydrALAZINE HCL [Apresoline] 25 mg PO TID Discharge Medication List Aspirin EC [Ecotrin Low Dose] 81 mg PO DAILY 01/16/18 [History] Citalopram Hydrobromide [CeleXA] 20 mg PO DAILY 01/16/18 [History] Levothyroxine Sodium [Synthroid] 75 mcg PO DAILY 01/16/18 [History] allopurinoL [Zyloprim] 100 mg PO DAILY 01/16/18 [History] carvediloL [Coreg*] 12.5 mg PO AC-BID #60 tab 01/30/18 [Rx] Albuterol Inhaler [Ventolin Hfa Inhaler] 2 puff INHALATION RT-Q6H PRN 11/30/19 [History] Famotidine [Pepcid] 20 mg PO HS 11/30/19 [History] busPIRone HCl [Buspar] 10 mg PO BID 11/30/19 [History] amLODIPine [Norvasc] 10 mg PO DAILY 02/22/20 [History] Atorvastatin Calcium [Lipitor] 40 mg PO HS 07/25/21 [History] Folic Acid-Vit B Complex-Vit C [Nephrocaps] 1 cap PO DAILY 07/25/21 [History] Gabapentin [Neurontin] 400 mg PO TID 07/25/21 [History] Budesonide-Formot 160-4.5 Mcg [Symbicort 160-4.5 Mcg Inhaler] 1 puff INHALATION BID #1 each 07/29/21 [Rx] HYDROcodone/APAP 5-325MG [[place] 5-325] 1 each PO Q6HR PRN #12 tab 07/29/21 [Rx] Nicotine 21Mg/24Hr Patch [Habitrol] 1 patch TRANSDERM DAILY #14 patch 07/29/21 [Rx] Sevelamer [Renvela] 800 mg PO TID-W/MEALS #90 tab 07/29/21 [Rx] Follow up Appointment(s)/Referral(s): Srini Hastings MD [Primary Care Provider] - 1-2 days (The office is closed at time of discharge, please call Saturday for appointment.) Javi Bautista MD [STAFF PHYSICIAN] - 07/31/21 (You will need to follow up in the wound center with Dr. Bautista next week. Please call [phone] Saturday to make your appointment. The center is open M-F [id number]) EMANUELA Visiting Nurse, [NON-STAFF] - 1 Week Patient Instructions/Handouts: Hydrocodone/Acetaminophen (By mouth), Nicotine (Absorbed through the skin), Budesonide/Formoterol (By breathing) Activity/Diet/Wound Care/Special Instructions: wound care per dr bautista You will continue to receive IV antibiotics while at dialysis for the next 2 weeks. Discharge Disposition: HOME WITH HOME HEALTH SERVICES
--- NOTE | 2021-07-29 16:33 | PN ---
PROGRESS NOTE Patient is seen for followup for end-stage renal disease. He is status post amputation of the left second and third toes. Today patient denies any significant complaints. He is being discharged. He will continue with vancomycin as outpatient for two weeks. PHYSICAL EXAMINATION: On examination today, blood pressure 104/59, heart rate 80 per minute. He is afebrile. Examination of lower extremities shows no significant edema. [employer] exam is grossly intact. LABS: Show hemoglobin 11, sodium 129, potassium 5.0 on 07/27/2021. ASSESSMENT: 1. End-stage renal disease on hemodialysis on a Saturday, Saturday, Saturday schedule. 2. Gangrene of the left second and third toe status post amputation, maintained on antibiotics. 3. CKD mineral bone disorder. 4. MRSA in the foot wound. PLAN: Next hemodialysis on 07/31/2020, this can be done as outpatient. Patient will continue with vancomycin as outpatient for two weeks. MMODL / IJN: [id number] /
== END 2021-07-29 14:37 | disposition home health service (06) | DRG 255 ==
LOC: EC 14:27 → 5NMEDONC 18:07
PROVIDERS: ADMIT Hospitalist; ATTEND Hospitalist
PROC: 0Y6U0Z0 Detachment at Left 3rd Toe, Complete, Open Approach (ICD-10-PCS; 2021-07-27)
PROC: 0Y6S0Z0 Detachment at Left 2nd Toe, Complete, Open Approach (ICD-10-PCS; principal; 2021-07-27 09:25)
DX: I96 Gangrene, not elsewhere classified (principal); I50.33 Acute on chronic diastolic (congestive) heart failure; N18.6 End stage renal disease; M86.9 Osteomyelitis, unspecified; I42.9 Cardiomyopathy, unspecified; I13.2 Hypertensive heart and chronic kidney disease with heart failure and with stage 5 chronic kidney disease, or end stage renal disease; L97.526 Non-pressure chronic ulcer of other part of left foot with bone involvement without evidence of necrosis; B95.62 Methicillin resistant Staphylococcus aureus infection as the cause of diseases classified elsewhere; E03.9 Hypothyroidism, unspecified; E78.5 Hyperlipidemia, unspecified; F17.210 Nicotine dependence, cigarettes, uncomplicated; F32.A Depression, unspecified; F41.9 Anxiety disorder, unspecified; G62.9 Polyneuropathy, unspecified; Z20.822 Contact with and (suspected) exposure to COVID-19; I25.10 Atherosclerotic heart disease of native coronary artery without angina pectoris; J44.9 Chronic obstructive pulmonary disease, unspecified; K21.9 Gastro-esophageal reflux disease without esophagitis; L08.9 Local infection of the skin and subcutaneous tissue, unspecified; M89.9 Disorder of bone, unspecified; Z79.82 Long term (current) use of aspirin; Z79.890 Hormone replacement therapy; Z79.899 Other long term (current) drug therapy; Z82.49 Family history of ischemic heart disease and other diseases of the circulatory system; Z83.3 Family history of diabetes mellitus; Z86.14 Personal history of Methicillin resistant Staphylococcus aureus infection; Z95.5 Presence of coronary angioplasty implant and graft; Z99.2 Dependence on renal dialysis; Z89.212 Acquired absence of left upper limb below elbow
CPT/HCPCS: 36415; 71046; 80048; 80053; 80202; 83605; 84100; 84145; 85025; 85652; 86140; 86706; 87040; 87070; 87075; 87077; 87186; 87205; 87340; 87635; 88305; 88311; 90935; 93005; 94640; 94760; 96365; 96366; 96367; 96372; 96375; 96376; 99215; 99285